=== PATIENT | male | born 1945 | race Caucasian/White ===

== ENCOUNTER → 2018-07-23 10:12 | Outpatient (CLI) | payer MEDICARE, MEDICAID, SELFPAY ==
--- NOTE | 2018-07-23 10:17 | US_ITS ---
US scrotum Ordering Physician: Tevin Howell MD Patient Age: 73 years: Male HISTORY: ITS.REASON: TESTICULAR PAIN . Scrotal swelling Low back pain radiating to right testicle several days TECHNIQUE: Ultrasound scrotum/testicles bilateral COMPARISON :CT abdomen pelvis 07/20/2018 however that study did not include the scrotum or airspace discussed below FINDINGS The testicles themselves appear normal in size with normal color Doppler flow. No torsion. No no suspicious solid mass involving the testicle itself. However there is a cyst of the testicle itself on the left. Discussed below Most impressive in striking are the large bilateral cystic areas at both right and left hemiscrotum which are most likely large epididymal cyst// spermatocele type cyst . These were difficult to demonstrate effectively to provided overview on ultrasound in their large size and multiplicity RIGHT HEMISCROTUM . The testicle itself measures: 3.7 cm x 3.6 cm x 2.2 cm.. At the right hemiscrotum there is a septated series of large cystic areas most evident superior to the right testicle-these spanning over 4.3 cm length x 1.75 cm. The largest cyst here measuring 2.5 cm cm length X up to 4.5 cm transverse. Cm cm transverse. Immediate cyst 2 cm length times X I believe 3 cm cm transverse cyst... There are other smaller in tiny cystic areas adjacent &between these larger areas... Also Suggestion of trace hydrocele most evident just superior to the right testicle, with only scant if any fluid inferiorly or or surrounding the testicle.. LEFT TESTICLE The testicle itself measures 3.6 cm length of 2.1 cm x 3.7 cm. Testicular cyst: 8 mm cyst of the left testicle itself-seen at the margin of the left testicle inferiorly. This should be followed. As there is subtle variation of architecture of the testicle just adjacent to this benign-appearing cyst noted... However No increase color Doppler flow to this region is seen. . Most striking of the large epididymal cysts above the testicle and at region of the head of left epididymis. These extend along the slightly enlarged irregular epididymis. Largest left left hemiscrotum cyst mass with partial septation spans 5.1 cm length X 3.9 cm transverse x 2.8 cm AP. This is extending somewhat along the epididymis. Again most likely these do reflect large epididymal cyst/spermatocele. I could not totally exclude a prior infection accounting for the additional septations in this slight irregular appearance of the epididymis. If tender currently cannot exclude a recurrent epididymitis.. Correlation required. There is also a small hydrocele oblique superior to the left testicle but it does not surround the left testicle, then only seen superiorly. Cannot exclude a prior infection accounting for some of the additional septations as well as the slight irregular appearance of the epididymis most evident on left. Some & If tender currently or fever cannot exclude a recurrent epididymitis.. Correlation required. There is also a small hydrocele at overlying the superior the left testicle but it does not surround the left testicle,, only seen superiorly. (Note The recent CT study extends does not include the scrotum. But Also note that the 07/20/2018 CT shows no evidence of inguinal hernia which which were considered with initial scanning. However with Further scanning these reveals that these are cystic areas restricted to the scrotum, and most compatible with epididymal cyst and/ spermatoceles.) IMPRESSION: ...... 1. Very Large Epididymal Cyst/Spermatoceles Bilaterally ... Very large cystic areas seen superior hemiscrotum bilaterally, representing mainly above both right & left testicle- compatible with very large prominent epididymal cysts/spermatoceles bilaterally.. As de
== END ==
PROVIDERS: PCP Internal Medicine Adolescent Medicine; Visit Provider Internal Medicine Adolescent Medicine
DX: N50.811 Right testicular pain (principal)
CPT/HCPCS: 76870

== ENCOUNTER → 2018-08-14 13:29 | Outpatient (CLI) | payer MEDICARE, MEDICAID, SELFPAY ==
--- NOTE | 2018-08-14 13:34 | CT_ITS ---
CT lung screening EXAM: CT LUNG LOW DOSE WO CONTRAST HISTORY: ITS.REASON: HX TOBACCO USE ORDERING PHYSICIAN: Tevin Howell MD PATIENT AGE: 73 years COMPARISON: None TECHNIQUE: The exam was performed on a GE Light Speed [address] scanner using 23.16 mGy CTDI. A low dose helical CT CHEST was performed on a multi-detector scanner. All CT scans at the facility use one or more dose reduction, viz: automated exposure control, ma/kV adjustment per patient size (including targeted exams where dose is matched to indication, i.e. head), or iterative reconstruction technique. The LDCT was performed in a facility that meets the criteria for the screening program. Data regarding this exam was submitted to ACR which is an approved registry. The order for this exam indicates that it came as a result of a lung cancer screening counseling shard decision-making visit that included all the elements required of such a visit including smoking cessation. The radiologist interpreting this exam meets the CMS criteria for the LDCT lung cancer screening program. The exam is reported using the Lung-RADS classification scale and reported to the ACR registry. NOTE: This study was performed for the specific purposes of lung cancer screening and is not an alternative to diagnostic chest CT. RADIATION DOSE: CTDI vol(CT dose Index-volume) = 23.16mG DLP (Dose Length Product) = 931.13 mGcm FINDINGS: No suspicious pulmonary nodules evident. Mild atelectatic or fibrotic changes are present in the left lung base. There is mild cardiomegaly. Coronary artery calcification. IMPRESSION: 1. Lung RADS Category: 1, negative 2. Other findings: Cardiomegaly with coronary artery calcification and mild left basilar atelectasis or fibrosis RECOMMENDATIONS: No follow-up required if the patient has quit smoking for greater than 15 years
== END ==
PROVIDERS: PCP Internal Medicine Adolescent Medicine; Visit Provider Internal Medicine Adolescent Medicine
DX: Z12.2 Encounter for screening for malignant neoplasm of respiratory organs (principal); Z87.891 Personal history of nicotine dependence

== ENCOUNTER 2020-10-15 11:42 | Observation (INO) | payer MEDICARE, MEDICAID, SELFPAY ==
[2020-10-15] VITALS (9 sets, daily range): BP systolic 110–166; BP diastolic 68–85; PULSE 67–117; RESP 16–20; TEMP 36.4–36.8; O2SAT 97–98; BMI 32.5; BMI 31.6
--- NOTE | 2020-10-15 11:52 | CT_ITS ---
PROCEDURE: CT ABDOMEN PELVIS WO CON CLINICAL INDICATION: back pain Generalized abdominal pain, back pain, testicular pain COMPARISON: CT ABDPELWO CT abdomen pelvis wo con from 07/20/2018 TECHNIQUE: Axial images obtained with sagittal and coronal reformats. All CT scans at the facility use one or more dose reduction, viz: automated exposure control, ma/kV adjustment per patient size (including targeted exams where dose is matched to indication, i.e. head), or iterative reconstruction technique. FINDINGS: LOWER THORAX: No acute finding ABDOMEN & PELVIS: The liver, gallbladder, spleen, adrenal glands, pancreas, have an unremarkable appearance. There is nonobstructing punctate calculi in both kidneys measuring 3 mm in the lower pole on both sides. There is mild stranding of the perinephric renal. No ureteral calculi. There is minimal dilatation of the infrarenal abdominal aorta at 2.3 cm. No evidence of acute retroperitoneal hemorrhage. Unremarkable appendix. There is colonic diverticulosis but no evidence of diverticulitis. The urinary bladder is decompressed. There is a small hiatal hernia. No intestinal obstruction or free air. There is old compression fracture of L2 with degenerative changes of the lumbar spine. There are small bilateral inguinal hernias containing fat and there are bilateral hydroceles noted left larger than right. IMPRESSION: 1. Nonobstructing bilateral renal calculi. 2. Colonic diverticulosis. No evidence of diverticulitis. 3. Bilateral inguinal hernias containing fat with bilateral hydroceles Dictated by: Michael Dill MD 10/16/2020 07:34 Michael Dill MD in [place] 10/16/2020 07:34
--- NOTE | 2020-10-15 11:53 | US_ITS ---
PROCEDURE: US TESTICULAR CLINICAL INDICATION: swelling Pain and swelling COMPARISON: US SCROTUM US scrotum from 07/23/[address] ABDOMEN PELVIS WO CON from 10/15/2020 FINDINGS: The right testicle is 4 x 2 x 3 cm. No mass of the testicle. Blood flow is present. Left testicle is 3.5 x 2.4 x 2.7 cm. Blood flow is present with no obvious solid testicular mass. There is a cystic area along the posterior aspect of the left testicle at 9 x 4 mm. Along the upper pole of the right testicle there are 2 cystic areas measuring 2.5 and 2.3 cm. Along the upper pole of the left testicle in the epididymal region there is a loculated cystic area measuring at least 5.8 by 2.9 cm. These may represent large epididymal cysts/spermatoceles. IMPRESSION: There are bilateral loculated cystic areas superior to the testicle on both sides as described above and may represent spermatocele/epididymal cysts. There is a small cyst involving the left testicle posteriorly. No solid testicular mass is apparent in there is bilateral testicular blood flow Dictated by: Michael Dill MD 10/16/2020 10:17 Michael Dill MD in [place] 10/16/2020 10:17
--- NOTE | 2020-10-15 11:54 | HMH.EDGENADL ---
ED Disposition Clinical Impression: Acute exacerbation of chronic low back pain, Spermatocele, Thrombocytopenia Leukopenia Qualifiers: Leukopenia type: unspecified Qualified Code(s): D72.819 - Decreased white blood cell count, unspecified Disposition: Admitted As Inpatient Condition on Discharge: Good - Critical Care Critical Care Time: No Attestation: On , the high probability of a clinically significant, sudden or life threatening deterioration of the following system(s) required my full and direct attention, intervention and personal management. The time I documented below is in addition to time spent performing reported procedures but includes the following listed in this critical care notation. Medical Decision Making - Medical Records Medical records reviewed: Yes: I reviewed the patient's medical records. - Moose Inquiry Pt receiving controlled substance: No Vital Signs: 10/15/20 11:43 10/15/20 13:13 Temperature 98 F Temperature Source Oral Pulse Rate [Radial] 117 H 75 Respiratory Rate 18 Blood Pressure [Right Arm] 110/68 141/83 H Blood Pressure Mean [Right Arm] 82 102 Blood Pressure Source [Right Arm] Automatic Cuff Blood Pressure Position [Right Arm] Sitting Sitting 02 Sat by Pulse Oximetry 98 98 Oxygen Delivery Method Room Air Room Air - Lab Data Lab Results 10/15/20 12:20: WBC 1.6 L*, RBC 3.47 L, Hgb 13.2 L, Hct 40.3 L, MCV 115.9 H, MCH 37.9 H, MCHC 32.7, RDW 13.9, Plt Count 50 L, MPV 10.7 H, Neut % (Auto) 34.1 L, Lymph % (Auto) 51.0 H, [place] % (Auto) 10.2 H, Eos % (Auto) 4.6, Baso % (Auto) 0.1, Neut # (Auto) 0.5 L*, Lymph # (Auto) 0.8, [place] # (Auto) 0.2, Eos # (Auto) 0.1, Baso # (Auto) 0.0, Total Counted 100, Neutrophils % (Manual) 39 L, Band Neutrophils % 1.0, Lymphocytes % (Manual) 47, Monocytes % (Manual) 11 H, Eosinophils % (Manual) 2, Nucleated RBCs 1, Platelet Estimate Marked decrease, Anisocytosis 2+, Macrocytosis 2+ 10/15/20 12:20: Sodium 137, Potassium 3.8, Chloride 104, Carbon Dioxide 27, Anion Gap 9.8, BUN 22 H, Creatinine 1.10, Estimated Creat Clear 89, Estimated GFR 65, Est GFR ( Amer) 79, Glucose 112 H, Calcium 9.5, Total Bilirubin 0.7, AST 36, ALT 24, Alkaline Phosphatase 90, Total Protein 7.5, Albumin 4.1, Globulin 3.4 H, Albumin/Globulin Ratio 1.2 10/15/20 13:25: Urine Color Yellow, Urine Appearance Clear, Urine pH 5.5, Ur Specific [place] >= 1.030, Urine Protein 1+, Urine Glucose (UA) Negative, Urine Ketones Negative, Urine Blood Negative, Urine Nitrate Positive, Urine Bilirubin 1+ A, Urine Urobilinogen 2.0, Ur Leukocyte Esterase Negative, Urine RBC None, Urine WBC None, Ur Squamous Epith Cells 3-5, Amorphous Sediment 2+, Urine Bacteria None Result diagrams: 10/15/20 12:20 10/15/20 12:20 Orders (Tests/Meds): ED MEDICATIONS Discontinued Medications Generic Name Dose Route Start Last Admin Trade Name Sherine PRN Reason Stop Dose Admin Acetaminophen 1,000 mg 10/15/20 11:54 10/15/20 12:19 Acetaminophen 500mg Tab PO 10/15/20 11:55 1,000 mg ONCE ONE Administration ORDERS Category Date Time Status CT abdomen pelvis wo con Stat Cat Scan 10/15/20 11:52 Taken Covid-19 IgG/IgM ([facility]) Stat Lab 10/15/20 14:06 Ordered US scrotum [US Testicular] Stat Ultrasound 10/15/20 11:53 Taken Medical Decision Narrative: 75-year-old male presenting with neck pain and scrotal swelling. Nontoxic, afebrile, hemodynamically stable, nonfocal, neuro intact, atraumatic. CT of the L-spine was negative for acute disease. Ultrasound of the scrotum demonstrated bilateral spermatoceles. Urinalysis is negative for infection. Of note, CBC was remarkable for a leukopenia and thrombocytopenia which is new therefore I have spoken to the who agreed to admit the patient for further work-up and management. Patient remained stable in the ED. General Adult HPI - General Chief complaint: PAIN Stated complaint: prostate and back pain Time Seen by Provider: 10/15/20 11:55 M
[2020-10-15 12:31] LABS: Basophils % 0.1 % (0.1-2.0); Eosinophils # 0.1 K/mm3 (0.0-0.4); Eosinophils % 4.6 % (0.1-12.0); Hematocrit 40.3 % (42.0-52.0); Hemoglobin 13.2 g/dL (14.1-18.0); Lymphocytes # 0.8 K/mm3 (0.7-4.5); Mean Corpuscular HGB Conc 32.7 g/dL (31.8-35.4); Mean Corpuscular Hemoglobin 37.9 pg (27.0-31.2); Mean Corpuscular Volume 115.9 fl (80-94); Mean Platelet Volume 10.7 fl (7.4-10.4); Monocytes # 0.2 K/mm3 (0.1-1.0); Monocytes % 10.2 % (1.7-9.3); Neutrophils # 0.5 K/mm3 (1.8-7.8); Neutrophils % 34.1 % (37.0-80.0); Red Blood Count 3.47 M/mm3 (4.60-6.20); Red Cell Distribution Width 13.9 % (11.5-17.5); White Blood Count 1.6 K/mm3 (4.8-10.8)
[2020-10-15 12:33] LABS: Platelet Count 50 K/mm3 (142-424)
[2020-10-15 12:36] LABS: MANUAL DIFFERENTIAL MANUAL DIFFERENTIAL (MANUAL DIFF)
[2020-10-15 12:38] LABS: Alanine Aminotransferase 24 U/L (12-78); Albumin Level 4.1 g/dl (3.5-5.0); Albumin/Globulin Ratio 1.2 (1.1-1.8); Alkaline Phosphatase 90 U/L (38-126); Anion Gap 9.8 mEq/L (5-15); Aspartate Amino Transferase 36 U/L (17-59); Bilirubin,Total 0.7 mg/dl (0.2-1.3); Blood Urea Nitrogen 22 mg/dl (9-20); Calcium 9.5 mg/dl (8.4-10.2); Carbon Dioxide 27 mmol/L (22.0-30.0); Chloride 104 mmol/L (98-107); Creatinine Clearance Estimated 89 mL/min (50-200); Estimated Glomerular Filt Rate 65 ml/min (>60); GFR (African American) 79 ML/MIN (>60); Globulin 3.4 g/dL (1.3-3.2); Glucose 112 mg/dl (74-100); Potassium 3.8 mmoL/L (3.5-5.1); Sodium 137 mmol/L (136-145); Total Protein,Serum 7.5 g/dl (6.3-8.2)
[2020-10-15 12:55] LABS: Eosinophils % 2 % (0-3); Lymphocytes % 47 % (10-50); Monocytes % 11 % (2-9); Neutrophils % 39 % (42-76); Nucleated Red Blood Cells 1; Total Cells Counted 100
[2020-10-15 12:56] LABS: Anisocytosis 2+; Macrocytosis 2+; Platelet Estimate Marked Decrease
--- NOTE | 2020-10-15 13:09 | PC.NURSE ---
pt returned from US
[2020-10-15 13:28] LABS: Appearance,Urine CLEAR (Clear); Blood, Urine Negative (Negative); Color,Urine YELLOW (Yellow); Glucose,Urine (UA) Negative (Negative); Ketones,Urine Negative (Negative); Leukocyte Esterase,Urine Negative (Negative); Microscopic, Urine URINE MICROSCOPIC (MICROSCOPIC); Nitrate,Urine POSITIVE (Negative); PH,Urine 5.5 (5.0-8.5); Protein,Urine 1+ (Negative); Specific Gravity, Urine >= 1.030 (1.005-1.030)
[2020-10-15 13:32] LABS: Bilirubin,Urine 1+ (Negative)
[2020-10-15 13:38] LABS: Amorphous Sediment,Urine 2+ /lpf
--- NOTE | 2020-10-15 14:41 | P.CONPHA_ITS ---
[facility] Pharmacy VTE Monitoring - Patient Demographics Admission date: 10/15/20 Report Date: 10/15/20 Time: 14:41 Allergies/Adverse Reactions: Patient Allergies No Known Allergies Allergy (Verified 05/23/18 10:45) Height: 1.83 m Weight: 108.862 kg Patient Problems: Current Active Problems Acute exacerbation of chronic low back pain (Acute) Spermatocele (Acute) Thrombocytopenia (Acute) Leukopenia (Acute) - VTE Risk Labs: VTE Related Lab Results Hgb 13.2 g/dL (14.1-18.0) L 10/15/20 12:20 Hct 40.3 % (42.0-52.0) L 10/15/20 12:20 Plt Count 50 K/mm3 (142-424) L 10/15/20 12:20 BUN 22 mg/dl (9-20) H 10/15/20 12:20 Creatinine 1.10 mg/dl (0.66-1.25) 10/15/20 12:20 Estimated Creat Clear 89 mL/min (50-200) 10/15/20 12:20 - Prophylaxis VTE Prophylaxis Ordered?: Yes Types of VTE Prophylaxis: TEDS Knee High Location of Applied Device: Bilateral Lower Extremeties
--- NOTE | 2020-10-15 14:42 | PC.NURSE ---
pt and family updated on plan of care
[2020-10-15 15:04] LABS: Coronavirus 19 IgG Antibody Negative (Negative); Coronavirus 19 IgM Antibody Negative (Negative)
--- NOTE | 2020-10-15 15:09 | PC.NURSE ---
called floor pt ready for admission
--- NOTE | 2020-10-15 15:48 | PC.NURSE ---
notified floor pt ready for admission
--- NOTE | 2020-10-15 16:04 | PC.NURSE ---
REPORT CALLED TO FLOOR
[2020-10-16 03:52] VITALS: BP 127/64; PULSE 79; RESP 18; TEMP 36.8; O2SAT 95
--- NOTE | 2020-10-16 04:51 | PC.NURSE ---
No acute changes noted. Pt has rested well this shift. Upon assessment stated that he had some back discomfort and headache. He also described swelling to scrotum.Some slight swelling noted during assessment. MD was consulted for orders. New orders placed to order home medications. Orders carried out. Home medications in drawer. VSS. Medications administered per mar. Will continue to monitor.
[2020-10-16 04:55] VITALS: BMI 31.3
[2020-10-16 06:28] LABS: Basophils % 0.4 % (0.1-2.0); Eosinophils # 0.1 K/mm3 (0.0-0.4); Eosinophils % 4.1 % (0.1-12.0); Hematocrit 35.3 % (42.0-52.0); Hemoglobin 11.9 g/dL (14.1-18.0); Lymphocytes % 58.3 % (10-50); Mean Corpuscular HGB Conc 33.8 g/dL (31.8-35.4); Mean Corpuscular Hemoglobin 38.5 pg (27.0-31.2); Mean Corpuscular Volume 113.6 fl (80-94); Mean Platelet Volume 10.2 fl (7.4-10.4); Monocytes # 0.2 K/mm3 (0.1-1.0); Monocytes % 11.8 % (1.7-9.3); Neutrophils # 0.4 K/mm3 (1.8-7.8); Neutrophils % 25.4 % (37.0-80.0); Red Blood Count 3.11 M/mm3 (4.60-6.20); Red Cell Distribution Width 13.8 % (11.5-17.5); White Blood Count 1.7 K/mm3 (4.8-10.8)
[2020-10-16 06:37] LABS: Anion Gap 9.2 mEq/L (5-15); Blood Urea Nitrogen 21 mg/dl (9-20); Calcium 9.3 mg/dl (8.4-10.2); Carbon Dioxide 29 mmol/L (22.0-30.0); Chloride 105 mmol/L (98-107); Creatinine Clearance Estimated 95 mL/min (50-200); Estimated Glomerular Filt Rate 73 ml/min (>60); GFR (African American) 88 ML/MIN (>60); Glucose 99 mg/dl (74-100); Potassium 4.2 mmoL/L (3.5-5.1); Sodium 139 mmol/L (136-145)
[2020-10-16 07:34] VITALS: BP 129/69; PULSE 95; RESP 16; TEMP 36.7; O2SAT 100
--- NOTE | 2020-10-16 07:51 | SW/DCPLANNER ---
PATIENT ADMITTED TO [facility] IN AN OBSERVATION STATUS, PATIENT COMPLAINING OF SWELLING OF TESTICLES AND RECENT DIAGNOSIS OF PROSTATITIS.. PATIENT RESIDES IN [facility] AND THE PLAN AT THIS TIME IS TO RETURN HOME PRIOR TO OBS ADMISSION... CM WILL FOLLOW THIS PATIENT AND IF THERE IS A NEED FOR ANY HOME CARE, IT WILL BE SET UP AT TIME OF ADMISSION...PATIENTS STAY SHOULD BE SHORT...
[2020-10-16 08:05] LABS: Platelet Count 47 K/mm3 (142-424)
[2020-10-16 08:06] LABS: MANUAL DIFFERENTIAL MANUAL DIFFERENTIAL (MANUAL DIFF)
--- NOTE | 2020-10-16 08:26 | HMH.HPDC ---
General - General Admission date:: 10/15/20 Discharge date: 10/16/20 *Admission Date: 10/15/20 *Chief complaint: Increased back pain, left testicle swelling *History of present illness: 75-year-old male presenting with neck pain and scrotal swelling. Nontoxic, afebrile, hemodynamically stable, nonfocal, neuro intact, atraumatic. CT of the L-spine was negative for acute disease. Ultrasound of the scrotum demonstrated bilateral spermatoceles. Urinalysis is negative for infection. Of note, CBC was remarkable for a leukopenia and thrombocytopenia which is new therefore I have spoken to the who agreed to admit the patient for further work-up and management. Patient remained stable in the ED. Above note per emergency department physician-patient presented with some back pain as well as increasing left scrotal swelling-has a history of recurrent orchitis/spermatocele exacerbations, usually treated with p.o. antibiotics. 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 No splenomegaly, hepatomegaly or lymphadenopathy was noted. Work-up was noted to have white count 1.6 and platelet count 50 which were new compared to labs in 2018 in the hospital system and patient was admitted overnight for neutropenic work-up. Patient specifically denies fevers, chills, rash, fatigue, belly pain, nausea, or other type B symptoms. [facility] History I have reviewed the patient's past medical history: Yes Medical History: Reports:: Hyperlipidemia, Hypertension Denies:: Cancer, Diabetes Mellitus Type 1, Diabetes Mellitus Type 2, Internal Pacemaker, MRSA *Have you ever received a pneumonia vaccine?: No *Have you received a flu vaccine this season?: No Other Medical History: Reports: Hoarseness, Other (short of breath,emphysemia) Other Surgeries: No: Pacemaker Amputation: No Fractures: No - *Social History Last grade of school completed: High school graduate Smoking Status: Former smoker Tobacco Type: cigarettes # Packs/Day (cigarettes): 3 #Yrs smoked (if former smoker): 20 Alcohol Intake: current Alcohol Intake Frequency:: 3 or more drinks per day Substance Use Type: denies use *Occupational Status:: retired, disabled Housing: house Household Members: spouse *Travel in the last 8 weeks: None Family Hx:: Asthma, Cancer, Heart Attack, Stroke Review of Systems - Review of Systems Review of systems:: pertinent systems reviewed and negative unless documented below Exam Vital signs and Labs for Last 24 Hours: Temp Pulse Resp BP Pulse Ox 98.1 F 95 H 16 129/69 100 10/16/20 07:34 10/16/20 07:34 10/16/20 07:34 10/16/20 07:34 10/16/20 07:34 Laboratory Results - last 24 hr 10/15/20 12:20: WBC 1.6 L*, RBC 3.47 L, Hgb 13.2 L, Hct 40.3 L, MCV 115.9 H, MCH 37.9 H, MCHC 32.7, RDW 13.9, Plt Count 50 L, MPV 10.7 H, Neut % (Auto) 34.1 L, Lymph % (Auto) 51.0 H, [place] % (Auto) 10.2 H, Eos % (Auto) 4.6, Baso % (Auto) 0.1, Neut # (Auto) 0.5 L*, Lymph # (Auto) 0.8, [place] # (Auto) 0.2, Eos # (Auto) 0.1, Baso # (Auto) 0.0, Total Counted 100, Neutrophils % (Manual) 39 L, Band Neutrophils % 1.0, Lymphocytes % (Manual) 47, Monocytes % (Manual) 11 H, Eosinophils % (Manual) 2, Nucleated RBCs 1, Platelet Estimate Marked decrease, Anisocytosis 2+, Macrocytosis 2+ 10/15/20 12:20: Sodium 137, Potassium 3.8, Chloride 104, Carbon Dioxide 27, Anion Gap 9.8, BUN 22 H, Creatinine 1.10, Estimated Creat Clear 89, Estimated GFR 65, Est GFR ( Amer) 79, Glucose 112 H, Calcium 9.5, Total Bilirubin 0.7, AST 36, ALT 24, Alkaline Phosphatase 90, Total Protein 7.5, Albumin 4.1, Globulin 3.4 H, Albumin/Globulin Ratio 1.2 10/15/20 12:20: SARS-CoV-2 IgG Ab (Rapid) Negative, SARS-CoV-2 IgM Ab (Rapid) Negative 10/15/20 13:25: Urine Color Yellow, Urine Appearance Clear, Urine pH 5.5, Ur Specific [place] >= 1.030, Urine Protein 1+, Urine Glucose (UA) Negative, Urine Ketones Negative, Urine Blood Negative, Urine Nitrate Positive, Urin
[2020-10-16 09:23] LABS: Lymphocytes % 60 % (10-50); Monocytes % 4 % (2-9); Neutrophils % 16 % (42-76); Total Cells Counted 25
[2020-10-16 09:24] LABS: Macrocytosis 1+
[2020-10-16 09:25] LABS: Platelet Estimate Marked Decrease
== END 2020-10-16 10:25 | disposition home or self-care (01) ==
LOC: ER 12:30 → 2ND 14:21
PROVIDERS: Admitting Provider Family Medicine; Emergency Provider Physician Assistant; PCP Internal Medicine Adolescent Medicine; Visit Provider Internal Medicine Adolescent Medicine
DX: M54.5 Low back pain (principal); G89.29 Other chronic pain; N43.40 Spermatocele of epididymis, unspecified; D69.6 Thrombocytopenia, unspecified; I10 Essential (primary) hypertension; E78.5 Hyperlipidemia, unspecified; J44.9 Chronic obstructive pulmonary disease, unspecified; Z79.51 Long term (current) use of inhaled steroids; Z79.899 Other long term (current) drug therapy
CPT/HCPCS: 36415; 74176; 76870; 80048; 80053; 81001; 85007; 85025; 86328; 99284; G0378

== ENCOUNTER → 2020-10-19 14:20 | Outpatient (CLI) | payer MEDICARE, MEDICAID, SELFPAY ==
[2020-10-19 15:10] LABS: Basophils % 0.5 % (0.1-2.0); Eosinophils # 0.1 K/mm3 (0.0-0.4); Eosinophils % 2.8 % (0.1-12.0); Hematocrit 40.4 % (42.0-52.0); Hemoglobin 13.5 g/dL (14.1-18.0); Lymphocytes # 1.1 K/mm3 (0.7-4.5); Lymphocytes % 60.8 % (10-50); Mean Corpuscular HGB Conc 33.5 g/dL (31.8-35.4); Mean Corpuscular Hemoglobin 38.5 pg (27.0-31.2); Mean Platelet Volume 10.3 fl (7.4-10.4); Monocytes # 0.2 K/mm3 (0.1-1.0); Monocytes % 8.7 % (1.7-9.3); Neutrophils # 0.5 K/mm3 (1.8-7.8); Neutrophils % 27.2 % (37.0-80.0); Platelet Count 68 K/mm3 (142-424); Red Blood Count 3.51 M/mm3 (4.60-6.20); Red Cell Distribution Width 13.7 % (11.5-17.5); White Blood Count 1.8 K/mm3 (4.8-10.8)
[2020-10-19 15:12] LABS: MANUAL DIFFERENTIAL MANUAL DIFFERENTIAL (MANUAL DIFF)
[2020-10-19 15:29] LABS: Alanine Aminotransferase 25 U/L (12-78); Albumin Level 4.5 g/dl (3.5-5.0); Albumin/Globulin Ratio 1.4 (1.1-1.8); Alkaline Phosphatase 89 U/L (38-126); Anion Gap 12.4 mEq/L (5-15); Aspartate Amino Transferase 40 U/L (17-59); Bilirubin,Total 0.9 mg/dl (0.2-1.3); Blood Urea Nitrogen 23 mg/dl (9-20); Carbon Dioxide 29 mmol/L (22.0-30.0); Chloride 103 mmol/L (98-107); Estimated Glomerular Filt Rate 73 ml/min (>60); GFR (African American) 88 ML/MIN (>60); Globulin 3.3 g/dL (1.3-3.2); Glucose 126 mg/dl (74-100); Potassium 4.4 mmoL/L (3.5-5.1); Sodium 140 mmol/L (136-145); Total Protein,Serum 7.8 g/dl (6.3-8.2)
[2020-10-19 16:16] LABS: Lymphocytes % 56 % (10-50); Monocytes % 6 % (2-9); Neutrophils % 37 % (42-76); Total Cells Counted 100
[2020-10-19 16:17] LABS: Anisocytosis 2+; Macrocytosis 2+; Platelet Estimate Marked Decrease
[2020-10-19 16:36] LABS: Vitamin B12 844 pg/mL (239-931)
[2020-10-19 16:37] LABS: Folate > 20.00 ng/mL
[2020-10-20 15:08] LABS: Lactate Dehydrogenase 219 U/L (313-618); Uric Acid 5.2 mg/dl (3.5-8.5)
[2020-10-22 14:45] LABS: Peripheral Smear Review Scanned Result
== END ==
PROVIDERS: Visit Provider Internal Medicine Medical Oncology
DX: D69.6 Thrombocytopenia, unspecified (principal)
CPT/HCPCS: 36415; 80053; 82607; 82746; 83615; 84550; 85007; 85025

== ENCOUNTER 2020-11-06 09:07 | Outpatient (CLI) | payer MEDICARE, MEDICAID, SELFPAY ==
[2020-11-06 09:08] VITALS: BMI 31.1
[2020-11-06 09:29] LABS: Basophils % 0.7 % (0.1-2.0); Eosinophils % 1.2 % (0.1-12.0); Hematocrit 37.2 % (42.0-52.0); Hemoglobin 12.2 g/dL (14.1-18.0); Lymphocytes # 1.5 K/mm3 (0.7-4.5); Lymphocytes % 55.1 % (10-50); Mean Corpuscular HGB Conc 32.8 g/dL (31.8-35.4); Mean Corpuscular Hemoglobin 37.8 pg (27.0-31.2); Mean Corpuscular Volume 115.2 fl (80-94); Mean Platelet Volume 9.5 fl (7.4-10.4); Monocytes # 0.2 K/mm3 (0.1-1.0); Monocytes % 7.5 % (1.7-9.3); Neutrophils % 35.6 % (37.0-80.0); Platelet Count 72 K/mm3 (142-424); Red Blood Count 3.23 M/mm3 (4.60-6.20); Red Cell Distribution Width 13.8 % (11.5-17.5); White Blood Count 2.7 K/mm3 (4.8-10.8)
[2020-11-06 09:32] LABS: MANUAL DIFFERENTIAL MANUAL DIFFERENTIAL (MANUAL DIFF)
[2020-11-06 09:40] LABS: Alanine Aminotransferase 17 U/L (12-78); Albumin Level 3.9 g/dl (3.5-5.0); Albumin/Globulin Ratio 1.3 (1.1-1.8); Alkaline Phosphatase 64 U/L (38-126); Anion Gap 7.3 mEq/L (5-15); Aspartate Amino Transferase 27 U/L (17-59); Bilirubin,Total 0.7 mg/dl (0.2-1.3); Blood Urea Nitrogen 17 mg/dl (9-20); Calcium 9.6 mg/dl (8.4-10.2); Carbon Dioxide 30 mmol/L (22.0-30.0); Chloride 104 mmol/L (98-107); Creatinine Clearance Estimated 94 mL/min (50-200); Estimated Glomerular Filt Rate 73 ml/min (>60); GFR (African American) 88 ML/MIN (>60); Glucose 130 mg/dl (74-100); Potassium 3.3 mmoL/L (3.5-5.1); Sodium 138 mmol/L (136-145); Total Protein,Serum 6.9 g/dl (6.3-8.2)
[2020-11-06 09:44] VITALS: BP 117/67; PULSE 82; RESP 18; TEMP 36.6; O2SAT 99
[2020-11-06 10:13] VITALS: BP 137/68; PULSE 84; RESP 18; O2SAT 98
[2020-11-06 10:21] LABS: Lymphocytes % 48 % (10-50); Macrocytosis 1+; Monocytes % 2 % (2-9); Neutrophils % 50 % (42-76); Platelet Estimate Normal; Total Cells Counted 100
[2020-11-06 10:43] VITALS: BP 140/74; PULSE 81; RESP 18; O2SAT 98
[2020-11-06 11:13] VITALS: BP 132/65; PULSE 61; RESP 18; O2SAT 98
[2020-11-06 11:35] VITALS: BP 135/74; PULSE 60; RESP 18; O2SAT 98
== END 2020-11-06 11:35 | disposition home or self-care (01) ==
LOC: INF 09:07
PROVIDERS: Visit Provider Internal Medicine Medical Oncology
DX: D46.9 Myelodysplastic syndrome, unspecified
CPT/HCPCS: 80053; 85007; 85025; 96413; J0894

== ENCOUNTER 2020-11-07 09:04 | Outpatient (CLI) | payer MEDICARE, MEDICAID, SELFPAY ==
[2020-11-07 09:40] VITALS: BP 126/59; PULSE 76; RESP 18; TEMP 36.3; O2SAT 97
[2020-11-07 09:55] VITALS: BP 136/68; PULSE 76; RESP 18
[2020-11-07 10:10] VITALS: BP 137/62; PULSE 66; RESP 18
[2020-11-07 10:25] VITALS: BP 130/63; PULSE 66; RESP 18
[2020-11-07 10:55] VITALS: BP 126/65; PULSE 66; RESP 18
== END 2020-11-07 10:55 | disposition home or self-care (01) ==
LOC: INF 09:04
PROVIDERS: Visit Provider Internal Medicine Medical Oncology
DX: Z51.11 Encounter for antineoplastic chemotherapy (principal); D46.9 Myelodysplastic syndrome, unspecified
CPT/HCPCS: 96413; J0894

== ENCOUNTER 2020-11-08 08:55 | Outpatient (CLI) | payer MEDICARE, MEDICAID, SELFPAY ==
[2020-11-08 09:40] VITALS: BP 147/69; PULSE 69; RESP 18; TEMP 36.4; O2SAT 97
[2020-11-08 10:00] VITALS: BP 136/65; PULSE 64; RESP 18
[2020-11-08 10:15] VITALS: BP 142/64; PULSE 64; RESP 18
[2020-11-08 10:30] VITALS: BP 144/69; PULSE 62; RESP 18
[2020-11-08 10:45] VITALS: BP 145/62; PULSE 63; RESP 18
[2020-11-08 11:10] VITALS: BP 148/64; PULSE 62; RESP 18
== END 2020-11-08 11:10 | disposition home or self-care (01) ==
LOC: INF 09:05
PROVIDERS: Visit Provider Internal Medicine Medical Oncology
DX: Z51.11 Encounter for antineoplastic chemotherapy (principal); D46.9 Myelodysplastic syndrome, unspecified
CPT/HCPCS: 96413; J0894

== ENCOUNTER 2020-11-09 08:47 | Outpatient (CLI) | payer MEDICARE, MEDICAID, SELFPAY ==
[2020-11-09 09:20] VITALS: BP 131/63; PULSE 70; RESP 18; O2SAT 96
[2020-11-09 09:35] VITALS: BP 142/68; PULSE 65; RESP 18
[2020-11-09 09:50] VITALS: BP 134/62; PULSE 66; RESP 18
[2020-11-09 10:05] VITALS: BP 137/63; PULSE 60; RESP 18
[2020-11-09 10:20] VITALS: BP 151/62; PULSE 62; RESP 18
[2020-11-09 10:45] VITALS: BP 147/74; PULSE 61; RESP 18
== END 2020-11-09 10:45 | disposition home or self-care (01) ==
LOC: INF 08:47
PROVIDERS: Visit Provider Internal Medicine Medical Oncology
DX: D46.9 Myelodysplastic syndrome, unspecified (principal)
CPT/HCPCS: 96413; J0894

== ENCOUNTER 2020-11-10 08:50 | Outpatient (CLI) | payer MEDICARE, MEDICAID, SELFPAY ==
[2020-11-10 09:38] VITALS: BP 134/62; PULSE 68; RESP 18; TEMP 36.6; O2SAT 97
[2020-11-10 09:53] VITALS: BP 117/62; PULSE 66; RESP 18
[2020-11-10 10:08] VITALS: BP 122/54; PULSE 62; RESP 18
[2020-11-10 10:23] VITALS: BP 126/63; PULSE 65; RESP 18
[2020-11-10 10:38] VITALS: BP 131/70; PULSE 67; RESP 18
== END 2020-11-10 11:00 | disposition home or self-care (01) ==
LOC: INF 08:52
PROVIDERS: Visit Provider Internal Medicine Medical Oncology
DX: D46.9 Myelodysplastic syndrome, unspecified (principal)
CPT/HCPCS: 96413; J0894

== ENCOUNTER 2020-11-16 12:40 | Outpatient (CLI) | payer MEDICARE, MEDICAID, SELFPAY ==
[2020-11-16 12:47] VITALS: BMI 31.8
[2020-11-16 13:09] LABS: Basophils % 0.4 % (0.1-2.0); Eosinophils % 0.5 % (0.1-12.0); Hematocrit 32.5 % (42.0-52.0); Hemoglobin 10.4 g/dL (14.1-18.0); Lymphocytes # 0.5 K/mm3 (0.7-4.5); Lymphocytes % 46.7 % (10-50); Mean Corpuscular HGB Conc 31.9 g/dL (31.8-35.4); Mean Corpuscular Hemoglobin 36.2 pg (27.0-31.2); Mean Corpuscular Volume 113.4 fl (80-94); Mean Platelet Volume 9.5 fl (7.4-10.4); Monocytes % 2.8 % (1.7-9.3); Neutrophils # 0.5 K/mm3 (1.8-7.8); Neutrophils % 49.5 % (37.0-80.0); Red Blood Count 2.87 M/mm3 (4.60-6.20); Red Cell Distribution Width 12.9 % (11.5-17.5)
[2020-11-16 13:12] LABS: Chloride 107 mmol/L (98-107)
[2020-11-16 13:13] LABS: Potassium 4.5 mmoL/L (3.5-5.1); Sodium 138 mmol/L (136-145)
[2020-11-16 13:14] LABS: Platelet Count 21 K/mm3 (142-424)
[2020-11-16 13:15] LABS: Alanine Aminotransferase 19 U/L (12-78); Anion Gap 6.5 mEq/L (5-15); Aspartate Amino Transferase 25 U/L (17-59); Blood Urea Nitrogen 28 mg/dl (9-20); Carbon Dioxide 29 mmol/L (22.0-30.0); Creatinine Clearance Estimated 96 mL/min (50-200); Estimated Glomerular Filt Rate 73 ml/min (>60); GFR (African American) 88 ML/MIN (>60); MANUAL DIFFERENTIAL MANUAL DIFFERENTIAL (MANUAL DIFF)
[2020-11-16 13:16] LABS: Albumin Level 3.9 g/dl (3.5-5.0); Albumin/Globulin Ratio 1.4 (1.1-1.8); Alkaline Phosphatase 70 U/L (38-126); Bilirubin,Total 1.1 mg/dl (0.2-1.3); Calcium 9.3 mg/dl (8.4-10.2); Globulin 2.8 g/dL (1.3-3.2); Glucose 115 mg/dl (74-100); Total Protein,Serum 6.7 g/dl (6.3-8.2)
--- NOTE | 2020-11-16 13:18 | PC.NURSE ---
1250-BLOOD DRAWN FROM LEFT AC USING BUTTERFLY NEEDLE TO CHECK CBC AND CMP PRIOR TO ONCOLOGY APPT.
[2020-11-16 14:00] LABS: Lymphocytes % 44 % (10-50); Neutrophils % 52 % (42-76); Total Cells Counted 50
[2020-11-16 14:01] LABS: Platelet Estimate Marked Decrease
[2020-11-16 14:02] LABS: Rouleaux 2+
--- NOTE | 2020-12-01 11:14 | DIET.NUTRFU ---
Late entry for dietary evaluation- Pt currently without any nutritional side effects and good appetite. Diet education/counseling provided for nutritional considerations and possible side effects. Pt encouraged to f/u with RD at next infusion or through telephone/email at any time.
== END 2020-11-16 12:55 | disposition home or self-care (01) ==
LOC: INF 12:45
PROVIDERS: Visit Provider Internal Medicine Medical Oncology
DX: D46.9 Myelodysplastic syndrome, unspecified (principal)
CPT/HCPCS: 80053; 85007; 85025

== ENCOUNTER 2020-12-04 08:49 | Outpatient (CLI) | payer MEDICARE, MEDICAID, SELFPAY ==
[2020-12-04 08:51] VITALS: BMI 31.1
[2020-12-04 09:16] LABS: Basophils # 0.1 K/mm3 (0-0.2); Basophils % 3.8 % (0.1-2.0); Eosinophils % 1.8 % (0.1-12.0); Hematocrit 33.9 % (42.0-52.0); Hemoglobin 10.8 g/dL (14.1-18.0); Lymphocytes % 70.7 % (10-50); Mean Corpuscular HGB Conc 31.8 g/dL (31.8-35.4); Mean Corpuscular Hemoglobin 35.5 pg (27.0-31.2); Mean Corpuscular Volume 111.8 fl (80-94); Mean Platelet Volume 8.6 fl (7.4-10.4); Monocytes % 1.4 % (1.7-9.3); Neutrophils # 0.3 K/mm3 (1.8-7.8); Neutrophils % 22.2 % (37.0-80.0); Platelet Count 315 K/mm3 (142-424); Red Blood Count 3.03 M/mm3 (4.60-6.20); Red Cell Distribution Width 14.1 % (11.5-17.5)
[2020-12-04 09:18] LABS: MANUAL DIFFERENTIAL MANUAL DIFFERENTIAL (MANUAL DIFF); White Blood Count 1.4 K/mm3 (4.8-10.8)
[2020-12-04 09:27] LABS: Chloride 106 mmol/L (98-107); Sodium 140 mmol/L (136-145)
[2020-12-04 09:29] LABS: Alanine Aminotransferase 17 U/L (12-78); Aspartate Amino Transferase 29 U/L (17-59); Blood Urea Nitrogen 19 mg/dl (9-20); Creatinine Clearance Estimated 86 mL/min (50-200); Estimated Glomerular Filt Rate 65 ml/min (>60); GFR (African American) 79 ML/MIN (>60)
[2020-12-04 09:30] LABS: Albumin/Globulin Ratio 1.2 (1.1-1.8); Alkaline Phosphatase 77 U/L (38-126); Bilirubin,Total 0.7 mg/dl (0.2-1.3); Calcium 9.9 mg/dl (8.4-10.2); Carbon Dioxide 27 mmol/L (22.0-30.0); Globulin 3.4 g/dL (1.3-3.2); Glucose 114 mg/dl (74-100); Total Protein,Serum 7.4 g/dl (6.3-8.2)
[2020-12-04 09:54] LABS: Hypochromasia 1+; Lymphocytes % 56 % (10-50); Macrocytosis 1+; Monocytes % 8 % (2-9); Neutrophils % 24 % (42-76); Platelet Estimate Normal; Total Cells Counted 25
[2020-12-04 10:35] VITALS: BP 132/63; PULSE 67; RESP 18; TEMP 36.7; O2SAT 96
[2020-12-04 11:05] VITALS: BP 137/69; PULSE 69; RESP 18; O2SAT 97
[2020-12-04 11:35] VITALS: BP 131/68; PULSE 65; RESP 18; O2SAT 96
[2020-12-04 11:55] VITALS: BP 140/62; PULSE 68; RESP 18; O2SAT 96
== END 2020-12-04 12:00 | disposition home or self-care (01) ==
LOC: INF 08:49
PROVIDERS: Visit Provider Internal Medicine Medical Oncology
DX: D46.9 Myelodysplastic syndrome, unspecified (principal)
CPT/HCPCS: 80053; 85007; 85025; 96413; J0894

== ENCOUNTER 2020-12-05 08:56 | Outpatient (CLI) | payer MEDICARE, MEDICAID, SELFPAY ==
[2020-12-05 09:27] VITALS: BP 135/66; PULSE 70; RESP 18; TEMP 36.4; O2SAT 97
[2020-12-05 09:45] VITALS: BP 140/74; PULSE 71; RESP 18
[2020-12-05 10:15] VITALS: BP 149/79; PULSE 75; RESP 18
[2020-12-05 10:35] VITALS: BP 140/75; PULSE 70; RESP 18
[2020-12-05 10:55] VITALS: BP 139/74; PULSE 70; RESP 18
== END 2020-12-05 10:55 | disposition home or self-care (01) ==
LOC: INF 08:56
PROVIDERS: Visit Provider Internal Medicine Medical Oncology
DX: D46.9 Myelodysplastic syndrome, unspecified (principal)
CPT/HCPCS: 96413; J0894

== ENCOUNTER 2020-12-06 08:35 | Outpatient (CLI) | payer MEDICARE, MEDICAID, SELFPAY ==
[2020-12-06 09:15] VITALS: BP 137/49; PULSE 69; RESP 18; TEMP 36.9; O2SAT 98
[2020-12-06 09:30] VITALS: BP 147/69; PULSE 71; RESP 18
[2020-12-06 09:45] VITALS: BP 138/74; PULSE 70; RESP 18
[2020-12-06 10:25] VITALS: RESP 18
[2020-12-06 10:40] VITALS: BP 154/74; PULSE 75; RESP 18
== END 2020-12-06 10:40 | disposition home or self-care (01) ==
LOC: INF 08:56
PROVIDERS: Visit Provider Internal Medicine Medical Oncology
DX: D46.9 Myelodysplastic syndrome, unspecified (principal)
CPT/HCPCS: 96413; J0894

== ENCOUNTER 2020-12-07 08:30 | Outpatient (CLI) | payer MEDICARE, MEDICAID, SELFPAY ==
[2020-12-07 09:13] VITALS: BP 147/68; PULSE 72; RESP 18; TEMP 36.8; O2SAT 99
[2020-12-07 09:28] VITALS: BP 129/63; PULSE 67; RESP 18
[2020-12-07 09:43] VITALS: BP 127/69; PULSE 63; RESP 18
[2020-12-07 09:58] VITALS: BP 119/70; PULSE 62; RESP 18
[2020-12-07 10:13] VITALS: BP 131/67; PULSE 62; RESP 18
== END 2020-12-07 10:35 | disposition home or self-care (01) ==
LOC: INF 08:31
PROVIDERS: Visit Provider Internal Medicine Medical Oncology
DX: D46.9 Myelodysplastic syndrome, unspecified (principal)
CPT/HCPCS: 96413; J0894

== ENCOUNTER 2020-12-08 08:50 | Outpatient (CLI) | payer MEDICARE, MEDICAID, SELFPAY ==
[2020-12-08 09:30] VITALS: BP 125/64; PULSE 62; RESP 18; TEMP 36.3; O2SAT 98
[2020-12-08 09:45] VITALS: BP 131/70; PULSE 64; RESP 18
[2020-12-08 10:00] VITALS: BP 140/61; PULSE 60; RESP 18; O2SAT 98
[2020-12-08 10:15] VITALS: BP 130/70; PULSE 60; RESP 18
[2020-12-08 10:30] VITALS: BP 136/68; PULSE 58; RESP 18
== END 2020-12-08 10:50 | disposition home or self-care (01) ==
LOC: INF 08:52
PROVIDERS: Visit Provider Internal Medicine Medical Oncology
DX: D46.9 Myelodysplastic syndrome, unspecified (principal)
CPT/HCPCS: 96413; J0894

== ENCOUNTER 2020-12-28 12:25 | Outpatient (CLI) | payer MEDICARE, MEDICAID, SELFPAY ==
[2020-12-28 12:31] VITALS: BMI 31.8
[2020-12-28 12:49] LABS: Basophils % 2.6 % (0.1-2.0); Eosinophils # 0.1 K/mm3 (0.0-0.4); Eosinophils % 4.8 % (0.1-12.0); Hematocrit 32.1 % (42.0-52.0); Hemoglobin 10.5 g/dL (14.1-18.0); Lymphocytes % 80.7 % (10-50); Mean Corpuscular HGB Conc 32.6 g/dL (31.8-35.4); Mean Corpuscular Hemoglobin 35.3 pg (27.0-31.2); Mean Corpuscular Volume 108.1 fl (80-94); Mean Platelet Volume 10.7 fl (7.4-10.4); Monocytes % 0.7 % (1.7-9.3); Neutrophils # 0.2 K/mm3 (1.8-7.8); Platelet Count 143 K/mm3 (142-424); Red Blood Count 2.97 M/mm3 (4.60-6.20); White Blood Count 1.3 K/mm3 (4.8-10.8)
[2020-12-28 12:50] LABS: Neutrophils % 11.3 % (37.0-80.0)
[2020-12-28 12:51] LABS: MANUAL DIFFERENTIAL MANUAL DIFFERENTIAL (MANUAL DIFF)
[2020-12-28 12:53] LABS: Chloride 109 mmol/L (98-107); Potassium 4.5 mmoL/L (3.5-5.1); Sodium 141 mmol/L (136-145)
[2020-12-28 12:56] LABS: Alanine Aminotransferase 13 U/L (12-78); Albumin Level 3.7 g/dl (3.5-5.0); Albumin/Globulin Ratio 1.3 (1.1-1.8); Alkaline Phosphatase 73 U/L (38-126); Anion Gap 9.5 mEq/L (5-15); Aspartate Amino Transferase 23 U/L (17-59); Bilirubin,Total 0.7 mg/dl (0.2-1.3); Blood Urea Nitrogen 22 mg/dl (9-20); Calcium 9.3 mg/dl (8.4-10.2); Carbon Dioxide 27 mmol/L (22.0-30.0); Creatinine Clearance Estimated 87 mL/min (50-200); Estimated Glomerular Filt Rate 65 ml/min (>60); GFR (African American) 79 ML/MIN (>60); Globulin 2.9 g/dL (1.3-3.2); Glucose 107 mg/dl (74-100); Total Protein,Serum 6.6 g/dl (6.3-8.2)
[2020-12-28 13:00] LABS: Eosinophils % 4 % (0-3); Lymphocytes % 77 % (10-50); Neutrophils % 18 % (42-76); Platelet Estimate Slight Decrease; RBC Morphology Normal; Total Cells Counted 51
--- NOTE | 2020-12-28 14:16 | PC.NURSE ---
1235 - BLOOD DRAWN FROM LEFT AC USING BUTTERFLY NEEDLE TO CHECK CBC, CMP PRIOR TO ONCOLOGY APPT.
== END 2020-12-28 12:45 | disposition home or self-care (01) ==
LOC: INF 12:27
PROVIDERS: Visit Provider Internal Medicine Medical Oncology
DX: D61.818 Other pancytopenia (principal); D72.819 Decreased white blood cell count, unspecified
CPT/HCPCS: 80053; 85007; 85025

== ENCOUNTER 2021-01-01 08:36 | Outpatient (CLI) | payer MEDICARE, MEDICAID, SELFPAY ==
[2021-01-01 09:02] VITALS: BMI 32.1
[2021-01-01 09:15] LABS: Basophils % 2.6 % (0.1-2.0); Eosinophils # 0.1 K/mm3 (0.0-0.4); Eosinophils % 5.4 % (0.1-12.0); Hematocrit 35.6 % (42.0-52.0); Hemoglobin 11.3 g/dL (14.1-18.0); Lymphocytes # 0.9 K/mm3 (0.7-4.5); Lymphocytes % 86.3 % (10-50); Mean Corpuscular HGB Conc 31.6 g/dL (31.8-35.4); Mean Corpuscular Hemoglobin 34.6 pg (27.0-31.2); Mean Corpuscular Volume 109.5 fl (80-94); Mean Platelet Volume 9.1 fl (7.4-10.4); Monocytes % 1.3 % (1.7-9.3); Neutrophils # 0.1 K/mm3 (1.8-7.8); Platelet Count 252 K/mm3 (142-424); Red Blood Count 3.25 M/mm3 (4.60-6.20); Red Cell Distribution Width 15.8 % (11.5-17.5); White Blood Count 1.1 K/mm3 (4.8-10.8)
[2021-01-01 09:18] LABS: Neutrophils % 4.3 % (37.0-80.0)
[2021-01-01 09:19] LABS: MANUAL DIFFERENTIAL MANUAL DIFFERENTIAL (MANUAL DIFF)
[2021-01-01 10:05] LABS: Eosinophils % 4 % (0-3); Lymphocytes % 84 % (10-50); Monocytes % 2 % (2-9); Neutrophils % 10 % (42-76); Total Cells Counted 50
[2021-01-01 10:06] LABS: Macrocytosis 2+; Platelet Estimate Normal
[2021-01-01 10:52] VITALS: BP 130/68; PULSE 68; RESP 18; TEMP 36.7; O2SAT 98
[2021-01-01 11:28] VITALS: BP 142/63; PULSE 58; RESP 18; O2SAT 99
[2021-01-01 11:58] VITALS: BP 136/69; PULSE 61; RESP 18; O2SAT 99
[2021-01-01 12:28] VITALS: BP 134/67; PULSE 59; RESP 18; O2SAT 98
[2021-01-01 12:45] VITALS: BP 136/70; PULSE 57; RESP 18; O2SAT 99
== END 2021-01-01 12:48 | disposition home or self-care (01) ==
LOC: INF 08:36
PROVIDERS: Visit Provider Internal Medicine Medical Oncology
DX: D46.9 Myelodysplastic syndrome, unspecified (principal)
CPT/HCPCS: 85007; 85025; 96413; J0894

== ENCOUNTER 2021-01-02 08:48 | Outpatient (CLI) | payer MEDICARE, MEDICAID, SELFPAY ==
[2021-01-02 10:30] VITALS: BP 135/55; PULSE 68; RESP 20; TEMP 36.9; O2SAT 95
[2021-01-02 11:00] VITALS: BP 127/58; PULSE 68; RESP 20; TEMP 36.9; O2SAT 95
== END 2021-01-02 11:00 | disposition home or self-care (01) ==
LOC: INF 08:48
PROVIDERS: Visit Provider Internal Medicine Medical Oncology
DX: Z51.11 Encounter for antineoplastic chemotherapy (principal); D46.9 Myelodysplastic syndrome, unspecified
CPT/HCPCS: 96413; J0894

== ENCOUNTER 2021-01-03 08:34 | Outpatient (CLI) | payer MEDICARE, MEDICAID, SELFPAY ==
[2021-01-03 08:43] VITALS: BP 136/65; PULSE 64; RESP 18; TEMP 36.4; O2SAT 97
[2021-01-03 09:20] VITALS: BP 149/62; PULSE 60; RESP 18; O2SAT 98
[2021-01-03 09:50] VITALS: BP 139/67; PULSE 61; RESP 18; O2SAT 98
[2021-01-03 10:30] VITALS: BP 135/62; PULSE 59; RESP 18; O2SAT 98
== END 2021-01-03 10:30 | disposition home or self-care (01) ==
LOC: INF 08:34
PROVIDERS: Visit Provider Internal Medicine Medical Oncology
DX: Z51.11 Encounter for antineoplastic chemotherapy (principal); D46.9 Myelodysplastic syndrome, unspecified
CPT/HCPCS: 96413; J0894

== ENCOUNTER 2021-01-04 08:36 | Outpatient (CLI) | payer MEDICARE, MEDICAID, SELFPAY ==
[2021-01-04 09:20] VITALS: BP 131/63; PULSE 64; RESP 18; TEMP 36.2; O2SAT 98
[2021-01-04 09:40] VITALS: BP 136/69; PULSE 65; RESP 18
[2021-01-04 10:10] VITALS: BP 155/71; PULSE 68; RESP 18
[2021-01-04 10:40] VITALS: BP 136/72; PULSE 68; RESP 18
== END 2021-01-04 10:40 | disposition home or self-care (01) ==
LOC: INF 08:37
PROVIDERS: Visit Provider Internal Medicine Medical Oncology
DX: D46.9 Myelodysplastic syndrome, unspecified (principal)
CPT/HCPCS: 96413; J0894

== ENCOUNTER 2021-01-05 08:10 | Outpatient (CLI) | payer MEDICARE, MEDICAID, SELFPAY ==
[2021-01-05 08:58] VITALS: BP 148/66; PULSE 63; RESP 18; TEMP 36.4; O2SAT 97
[2021-01-05 09:15] VITALS: BP 135/59; PULSE 59; RESP 18
[2021-01-05 09:30] VITALS: BP 130/64; PULSE 59; RESP 18
[2021-01-05 09:45] VITALS: BP 137/53; PULSE 57; RESP 18
[2021-01-05 10:05] VITALS: RESP 18
[2021-01-05 10:20] VITALS: BP 146/63; PULSE 57; RESP 18; O2SAT 97
== END 2021-01-05 10:20 | disposition home or self-care (01) ==
LOC: INF 08:17
PROVIDERS: Visit Provider Internal Medicine Medical Oncology
DX: D46.9 Myelodysplastic syndrome, unspecified (principal)
CPT/HCPCS: 96413; J0894

== ENCOUNTER 2021-01-25 13:30 | Outpatient (CLI) | payer MEDICARE, MEDICAID, SELFPAY ==
[2021-01-25 13:32] VITALS: BMI 32.5
[2021-01-25 13:48] LABS: Basophils # 0.1 K/mm3 (0-0.2); Basophils % 3.7 % (0.1-2.0); Eosinophils # 0.1 K/mm3 (0.0-0.4); Eosinophils % 5.8 % (0.1-12.0); Hematocrit 36.8 % (42.0-52.0); Hemoglobin 11.9 g/dL (14.1-18.0); Lymphocytes # 1.5 K/mm3 (0.7-4.5); Lymphocytes % 67.3 % (10-50); Mean Corpuscular HGB Conc 32.4 g/dL (31.8-35.4); Mean Corpuscular Hemoglobin 33.8 pg (27.0-31.2); Mean Corpuscular Volume 104.4 fl (80-94); Mean Platelet Volume 9.5 fl (7.4-10.4); Monocytes % 0.9 % (1.7-9.3); Neutrophils # 0.5 K/mm3 (1.8-7.8); Neutrophils % 22.3 % (37.0-80.0); Platelet Count 191 K/mm3 (142-424); Red Blood Count 3.52 M/mm3 (4.60-6.20); White Blood Count 2.2 K/mm3 (4.8-10.8)
[2021-01-25 13:52] LABS: Chloride 106 mmol/L (98-107); Potassium 4.5 mmoL/L (3.5-5.1); Sodium 138 mmol/L (136-145)
[2021-01-25 13:54] LABS: Blood Urea Nitrogen 36 mg/dl (9-20); Creatinine Clearance Estimated 82 mL/min (50-200); Estimated Glomerular Filt Rate 59 ml/min (>60); GFR (African American) 71 ML/MIN (>60); MANUAL DIFFERENTIAL MANUAL DIFFERENTIAL (MANUAL DIFF)
[2021-01-25 13:55] LABS: Alanine Aminotransferase 15 U/L (12-78); Albumin Level 3.7 g/dl (3.5-5.0); Albumin/Globulin Ratio 1.4 (1.1-1.8); Alkaline Phosphatase 77 U/L (38-126); Anion Gap 8.5 mEq/L (5-15); Aspartate Amino Transferase 25 U/L (17-59); Bilirubin,Total 0.6 mg/dl (0.2-1.3); Calcium 9.2 mg/dl (8.4-10.2); Carbon Dioxide 28 mmol/L (22.0-30.0); Globulin 2.7 g/dL (1.3-3.2); Glucose 97 mg/dl (74-100); Total Protein,Serum 6.4 g/dl (6.3-8.2)
[2021-01-25 14:08] LABS: Acanthocytes 1+; Anisocytosis 1+; Eosinophils % 4 % (0-3); Lymphocytes % 61 % (10-50); Macrocytosis 1+; Monocytes % 4 % (2-9); Neutrophils % 31 % (42-76); Platelet Estimate Normal; Poikilocytosis 1+; Total Cells Counted 100
--- NOTE | 2021-01-25 14:23 | PC.NURSE ---
1335 Patient arrived for labs to be done prior to appointment with Dr. Pineda today as scheduled. CBC/CMP drawn per MD order. 1400 Labs reviewed per MD/staff at appointment/no new orders given at this time.
== END 2021-01-25 14:25 | disposition home or self-care (01) ==
LOC: INF 13:30
PROVIDERS: Visit Provider Internal Medicine Medical Oncology
DX: D46.9 Myelodysplastic syndrome, unspecified (principal)
CPT/HCPCS: 80053; 85007; 85025

== ENCOUNTER 2021-01-29 08:31 | Outpatient (CLI) | payer MEDICARE, MEDICAID, SELFPAY ==
[2021-01-29 08:48] VITALS: BP 158/68; PULSE 66; RESP 18; TEMP 36.4; O2SAT 98
[2021-01-29 09:14] VITALS: BP 145/70; PULSE 66; RESP 18; O2SAT 98
[2021-01-29 09:44] VITALS: BP 137/64; PULSE 56; RESP 18; O2SAT 97
[2021-01-29 10:14] VITALS: BP 141/78; PULSE 64; RESP 18; O2SAT 98
[2021-01-29 10:35] VITALS: BP 152/74; PULSE 58; RESP 18; O2SAT 98
== END 2021-01-29 10:35 | disposition home or self-care (01) ==
LOC: INF 08:31
PROVIDERS: Visit Provider Internal Medicine Medical Oncology
DX: D46.9 Myelodysplastic syndrome, unspecified (principal)
CPT/HCPCS: 96413; J0894

== ENCOUNTER 2021-01-30 08:34 | Outpatient (CLI) | payer MEDICARE, MEDICAID, SELFPAY ==
[2021-01-30 09:10] VITALS: BP 147/70; PULSE 60; RESP 20; TEMP 36.9; O2SAT 98
[2021-01-30 09:40] VITALS: BP 127/74; PULSE 68; RESP 20; TEMP 36.9; O2SAT 95
[2021-01-30 10:10] VITALS: BP 128/68; PULSE 60; RESP 20; TEMP 36.9; O2SAT 98
== END 2021-01-30 09:50 | disposition home or self-care (01) ==
LOC: INF 08:34
PROVIDERS: Visit Provider Internal Medicine Medical Oncology
DX: D46.9 Myelodysplastic syndrome, unspecified (principal)
CPT/HCPCS: 96413; J0894

== ENCOUNTER 2021-01-31 08:30 | Outpatient (CLI) | payer MEDICARE, MEDICAID, SELFPAY ==
[2021-01-31 08:30] VITALS: BP 148/60; PULSE 61; RESP 20; TEMP 36.1; O2SAT 98
[2021-01-31 09:08] VITALS: BP 131/58; PULSE 66; RESP 18; O2SAT 99
[2021-01-31 09:38] VITALS: BP 130/59; PULSE 67; RESP 18; O2SAT 99
[2021-01-31 10:08] VITALS: BP 140/61; PULSE 64; RESP 18; O2SAT 99
[2021-01-31 10:30] VITALS: BP 136/56; PULSE 55; RESP 18; O2SAT 98
--- NOTE | 2021-01-31 15:27 | DIET.NUTRFU ---
Pt contacted for nutritional consult for first dose chemotherapy. Pt states he is having no side effect issues. He stated he is trying to eat a healthy balanced diet and prioritize protein. Diet education/counseling provided for nutritional considerations oncology/general balanced diet.
== END 2021-01-31 10:30 | disposition home or self-care (01) ==
LOC: INF 08:33
PROVIDERS: Visit Provider Internal Medicine Medical Oncology
DX: D46.9 Myelodysplastic syndrome, unspecified (principal)
CPT/HCPCS: 96413; J0894

== ENCOUNTER 2021-02-01 08:28 | Outpatient (CLI) | payer MEDICARE, MEDICAID, SELFPAY ==
[2021-02-01 09:10] VITALS: BP 122/62; PULSE 55; RESP 18; TEMP 36.1; O2SAT 97
[2021-02-01 09:25] VITALS: BP 115/93; PULSE 55; RESP 18
[2021-02-01 09:40] VITALS: BP 131/80; PULSE 54; RESP 18
[2021-02-01 09:55] VITALS: BP 105/87; PULSE 54; RESP 18
[2021-02-01 10:10] VITALS: BP 163/73; PULSE 53; RESP 18
[2021-02-01 10:34] VITALS: BP 160/69; PULSE 64; RESP 18
== END 2021-02-01 10:34 | disposition home or self-care (01) ==
LOC: INF 08:28
PROVIDERS: Visit Provider Internal Medicine Medical Oncology
DX: D46.9 Myelodysplastic syndrome, unspecified (principal)
CPT/HCPCS: 96413; J0894

== ENCOUNTER 2021-02-02 08:20 | Outpatient (CLI) | payer MEDICARE, MEDICAID, SELFPAY ==
[2021-02-02 09:15] VITALS: BP 174/72; PULSE 55; RESP 18; TEMP 36.5; O2SAT 99
[2021-02-02 09:30] VITALS: BP 172/79; PULSE 58; RESP 18
[2021-02-02 09:45] VITALS: BP 170/73; PULSE 57; RESP 18
[2021-02-02 10:00] VITALS: BP 169/75; PULSE 56; RESP 18
[2021-02-02 10:15] VITALS: BP 169/74; PULSE 56; RESP 18
== END 2021-02-02 10:35 | disposition home or self-care (01) ==
LOC: INF 08:29
PROVIDERS: Visit Provider Internal Medicine Medical Oncology
DX: D46.9 Myelodysplastic syndrome, unspecified (principal)
CPT/HCPCS: 96413; J0894

== ENCOUNTER 2021-02-22 13:32 | Outpatient (CLI) | payer MEDICARE, MEDICAID, SELFPAY ==
[2021-02-22 13:35] VITALS: BMI 32.4
--- NOTE | 2021-02-22 13:40 | PC.NURSE ---
1340-pt here for lab draw;collect cbc and cmp sent specimens to lab;and sent pt to oncology appointment
[2021-02-22 13:48] LABS: Basophils # 0.1 K/mm3 (0-0.2); Eosinophils # 0.2 K/mm3 (0.0-0.4); Eosinophils % 8.7 % (0.1-12.0); Hematocrit 39.2 % (42.0-52.0); Hemoglobin 12.3 g/dL (14.1-18.0); Lymphocytes # 1.3 K/mm3 (0.7-4.5); Lymphocytes % 67.5 % (10-50); Mean Corpuscular HGB Conc 31.5 g/dL (31.8-35.4); Mean Corpuscular Hemoglobin 32.4 pg (27.0-31.2); Mean Corpuscular Volume 102.9 fl (80-94); Mean Platelet Volume 9.8 fl (7.4-10.4); Monocytes % 1.5 % (1.7-9.3); Neutrophils # 0.4 K/mm3 (1.8-7.8); Neutrophils % 22.4 % (37.0-80.0); Platelet Count 109 K/mm3 (142-424); Red Blood Count 3.81 M/mm3 (4.60-6.20); Red Cell Distribution Width 15.9 % (11.5-17.5); White Blood Count 1.9 K/mm3 (4.8-10.8)
[2021-02-22 13:50] LABS: MANUAL DIFFERENTIAL MANUAL DIFFERENTIAL (MANUAL DIFF)
[2021-02-22 13:52] LABS: Chloride 107 mmol/L (98-107)
[2021-02-22 13:53] LABS: Potassium 4.3 mmoL/L (3.5-5.1); Sodium 140 mmol/L (136-145)
[2021-02-22 13:55] LABS: Alanine Aminotransferase 16 U/L (12-78); Aspartate Amino Transferase 26 U/L (17-59); Blood Urea Nitrogen 27 mg/dl (9-20); Creatinine Clearance Estimated 75 mL/min (50-200); Estimated Glomerular Filt Rate 54 ml/min (>60); GFR (African American) 65 ML/MIN (>60)
[2021-02-22 13:56] LABS: Albumin/Globulin Ratio 1.4 (1.1-1.8); Alkaline Phosphatase 76 U/L (38-126); Anion Gap 9.3 mEq/L (5-15); Bilirubin,Total 0.6 mg/dl (0.2-1.3); Calcium 9.6 mg/dl (8.4-10.2); Carbon Dioxide 28 mmol/L (22.0-30.0); Globulin 2.8 g/dL (1.3-3.2); Glucose 105 mg/dl (74-100); Total Protein,Serum 6.8 g/dl (6.3-8.2)
[2021-02-22 14:08] LABS: Eosinophils % 10 % (0-3); Lymphocytes % 42 % (10-50); Monocytes % 2 % (2-9); Neutrophils % 23 % (42-76); Total Cells Counted 100
[2021-02-22 14:09] LABS: Macrocytosis 1+; Platelet Estimate Slight Decrease; Tear Drop Cells 1+
== END 2021-02-22 13:41 | disposition home or self-care (01) ==
LOC: INF 13:32
PROVIDERS: Visit Provider Internal Medicine Medical Oncology
DX: D46.9 Myelodysplastic syndrome, unspecified (principal)
CPT/HCPCS: 80053; 85007; 85025

== ENCOUNTER 2021-02-26 08:20 | Outpatient (CLI) | payer MEDICARE, MEDICAID, SELFPAY ==
[2021-02-26 08:30] VITALS: BMI 32.1
[2021-02-26 08:50] LABS: Basophils # 0.1 K/mm3 (0-0.2); Basophils % 4.7 % (0.1-2.0); Eosinophils # 0.3 K/mm3 (0.0-0.4); Eosinophils % 14.4 % (0.1-12.0); Hemoglobin 12.9 g/dL (14.1-18.0); Lymphocytes # 1.3 K/mm3 (0.7-4.5); Lymphocytes % 63.9 % (10-50); Mean Corpuscular HGB Conc 30.8 g/dL (31.8-35.4); Mean Corpuscular Volume 103.8 fl (80-94); Monocytes # 0.1 K/mm3 (0.1-1.0); Monocytes % 2.6 % (1.7-9.3); Neutrophils # 0.4 K/mm3 (1.8-7.8); Neutrophils % 19.1 % (37.0-80.0); Platelet Count 181 K/mm3 (142-424); Red Blood Count 4.04 M/mm3 (4.60-6.20); White Blood Count 2.1 K/mm3 (4.8-10.8)
[2021-02-26 08:57] LABS: Alanine Aminotransferase 18 U/L (12-78); Albumin Level 4.1 g/dl (3.5-5.0); Albumin/Globulin Ratio 1.4 (1.1-1.8); Alkaline Phosphatase 67 U/L (38-126); Aspartate Amino Transferase 29 U/L (17-59); Bilirubin,Total 0.7 mg/dl (0.2-1.3); Blood Urea Nitrogen 22 mg/dl (9-20); Calcium 9.6 mg/dl (8.4-10.2); Carbon Dioxide 27 mmol/L (22.0-30.0); Chloride 107 mmol/L (98-107); Creatinine Clearance Estimated 88 mL/min (50-200); Estimated Glomerular Filt Rate 65 ml/min (>60); GFR (African American) 79 ML/MIN (>60); Globulin 2.9 g/dL (1.3-3.2); Glucose 103 mg/dl (74-100); MANUAL DIFFERENTIAL MANUAL DIFFERENTIAL (MANUAL DIFF); Sodium 139 mmol/L (136-145)
[2021-02-26 09:15] LABS: Anion Gap 8.8 mEq/L (5-15); Potassium 3.8 mmoL/L (3.5-5.1)
[2021-02-26 09:26] LABS: Eosinophils % 13 % (0-3); Lymphocytes % 46 % (10-50); Monocytes % 13 % (2-9); Neutrophils % 27 % (42-76); Total Cells Counted 100
[2021-02-26 09:27] LABS: Platelet Estimate Normal
[2021-02-26 09:28] LABS: Hypochromasia 1+; Macrocytosis 2+
[2021-02-26 09:50] VITALS: BP 147/73; PULSE 68; RESP 18; O2SAT 96
[2021-02-26 10:10] VITALS: BP 145/69; PULSE 72; RESP 18
[2021-02-26 10:45] VITALS: BP 144/72; PULSE 67; RESP 18
[2021-02-26 11:20] VITALS: BP 152/78; PULSE 69; RESP 18
== END 2021-02-26 11:20 | disposition home or self-care (01) ==
LOC: INF 08:27
PROVIDERS: PCP Internal Medicine Medical Oncology; Visit Provider Internal Medicine Medical Oncology
DX: Z51.11 Encounter for antineoplastic chemotherapy (principal); D46.9 Myelodysplastic syndrome, unspecified
CPT/HCPCS: 80053; 85007; 85025; 96413; J0894

== ENCOUNTER 2021-02-27 08:41 | Outpatient (CLI) | payer MEDICARE, MEDICAID, SELFPAY ==
[2021-02-27 08:50] VITALS: BP 136/63; PULSE 88; RESP 18; TEMP 36.8; O2SAT 98
[2021-02-27 09:20] VITALS: BP 120/72; PULSE 78; RESP 18; O2SAT 98
[2021-02-27 09:50] VITALS: BP 130/78; PULSE 82; RESP 18; O2SAT 97
[2021-02-27 10:35] VITALS: BP 123/65; PULSE 70; RESP 18; O2SAT 97
== END 2021-02-27 10:35 | disposition home or self-care (01) ==
LOC: INF 08:42
PROVIDERS: Visit Provider Internal Medicine Medical Oncology
DX: D46.Z Other myelodysplastic syndromes (principal); Z51.11 Encounter for antineoplastic chemotherapy
CPT/HCPCS: 96413; J0894

== ENCOUNTER 2021-02-28 08:20 | Outpatient (CLI) | payer MEDICARE, MEDICAID, SELFPAY ==
[2021-02-28 09:10] VITALS: BP 144/68; PULSE 72; RESP 18; O2SAT 97
[2021-02-28 10:33] VITALS: BP 147/78; PULSE 68; RESP 18
== END 2021-02-28 10:33 | disposition home or self-care (01) ==
LOC: INF 08:27
PROVIDERS: Visit Provider Internal Medicine Medical Oncology
DX: Z51.11 Encounter for antineoplastic chemotherapy (principal); D46.Z Other myelodysplastic syndromes
CPT/HCPCS: 96413; J0894

== ENCOUNTER 2021-03-01 08:32 | Outpatient (CLI) | payer MEDICARE, MEDICAID, SELFPAY ==
[2021-03-01 08:48] VITALS: BP 130/69; PULSE 76; RESP 18; TEMP 36.7; O2SAT 97
[2021-03-01 09:15] VITALS: BP 139/70; PULSE 71; RESP 18; O2SAT 97
[2021-03-01 09:45] VITALS: BP 137/72; PULSE 74; RESP 18; O2SAT 97
[2021-03-01 10:15] VITALS: BP 144/78; PULSE 78; RESP 18; O2SAT 98
[2021-03-01 10:35] VITALS: BP 150/75; PULSE 67; RESP 18; O2SAT 97
== END 2021-03-01 10:35 | disposition home or self-care (01) ==
LOC: INF 08:32
PROVIDERS: Visit Provider Internal Medicine Medical Oncology
DX: Z51.11 Encounter for antineoplastic chemotherapy (principal); D46.Z Other myelodysplastic syndromes
CPT/HCPCS: 96413; J0894

== ENCOUNTER 2021-03-02 08:25 | Outpatient (CLI) | payer MEDICARE, MEDICAID, SELFPAY ==
[2021-03-02 08:40] VITALS: BP 168/86; PULSE 76; RESP 18; TEMP 36.1; O2SAT 97
[2021-03-02 09:12] VITALS: BP 138/73; PULSE 68; RESP 18; O2SAT 97
[2021-03-02 09:42] VITALS: BP 144/72; PULSE 71; RESP 18; O2SAT 98
[2021-03-02 10:12] VITALS: BP 149/78; PULSE 69; RESP 18; O2SAT 97
[2021-03-02 10:40] VITALS: BP 157/76; PULSE 65; RESP 18; O2SAT 98
== END 2021-03-02 10:40 | disposition home or self-care (01) ==
LOC: INF 08:33
PROVIDERS: Visit Provider Internal Medicine Medical Oncology
DX: Z51.11 Encounter for antineoplastic chemotherapy (principal); D46.Z Other myelodysplastic syndromes
CPT/HCPCS: 96413; J0894

== ENCOUNTER 2021-03-22 08:20 | Outpatient (CLI) | payer MEDICARE, MEDICAID, SELFPAY ==
[2021-03-22 08:23] VITALS: BMI 32.1
[2021-03-22 08:40] LABS: Basophils # 0.1 K/mm3 (0-0.2); Eosinophils # 0.4 K/mm3 (0.0-0.4); Eosinophils % 16.3 % (0.1-12.0); Hematocrit 40.6 % (42.0-52.0); Hemoglobin 13.3 g/dL (14.1-18.0); Lymphocytes # 1.4 K/mm3 (0.7-4.5); Lymphocytes % 55.2 % (10-50); Mean Corpuscular HGB Conc 32.8 g/dL (31.8-35.4); Mean Corpuscular Hemoglobin 32.4 pg (27.0-31.2); Mean Platelet Volume 9.2 fl (7.4-10.4); Monocytes # 0.1 K/mm3 (0.1-1.0); Monocytes % 2.1 % (1.7-9.3); Neutrophils # 0.6 K/mm3 (1.8-7.8); Neutrophils % 23.3 % (37.0-80.0); Platelet Count 126 K/mm3 (142-424); Red Cell Distribution Width 16.3 % (11.5-17.5); White Blood Count 2.4 K/mm3 (4.8-10.8)
[2021-03-22 08:43] LABS: Chloride 106 mmol/L (98-107); Potassium 4.2 mmoL/L (3.5-5.1); Sodium 139 mmol/L (136-145)
[2021-03-22 08:46] LABS: Alanine Aminotransferase 15 U/L (12-78); Albumin Level 3.9 g/dl (3.5-5.0); Albumin/Globulin Ratio 1.4 (1.1-1.8); Alkaline Phosphatase 87 U/L (38-126); Anion Gap 9.2 mEq/L (5-15); Aspartate Amino Transferase 25 U/L (17-59); Bilirubin,Total 0.7 mg/dl (0.2-1.3); Blood Urea Nitrogen 23 mg/dl (9-20); Calcium 9.1 mg/dl (8.4-10.2); Carbon Dioxide 28 mmol/L (22.0-30.0); Creatinine Clearance Estimated 81 mL/min (50-200); Estimated Glomerular Filt Rate 59 ml/min (>60); GFR (African American) 71 ML/MIN (>60); Globulin 2.8 g/dL (1.3-3.2); Glucose 108 mg/dl (74-100); Total Protein,Serum 6.7 g/dl (6.3-8.2)
[2021-03-22 09:00] LABS: MANUAL DIFFERENTIAL MANUAL DIFFERENTIAL (MANUAL DIFF)
[2021-03-22 09:16] LABS: Anisocytosis 1+; Eosinophils % 4 % (0-3); Lymphocytes % 66 % (10-50); Macrocytosis 1+; Monocytes % 4 % (2-9); Neutrophils % 26 % (42-76); Platelet Estimate Normal; Total Cells Counted 100
== END 2021-03-22 08:33 | disposition home or self-care (01) ==
LOC: INF 08:23
PROVIDERS: Visit Provider Internal Medicine Medical Oncology
DX: D46.Z Other myelodysplastic syndromes (principal)
CPT/HCPCS: 80053; 85007; 85025

== ENCOUNTER 2021-03-26 08:22 | Outpatient (CLI) | payer MEDICARE, MEDICAID, SELFPAY ==
[2021-03-26 09:10] VITALS: BP 149/61; PULSE 79; RESP 17; TEMP 36.4; O2SAT 98
[2021-03-26 09:25] VITALS: BP 133/65; PULSE 67
[2021-03-26 09:40] VITALS: BP 140/73; PULSE 65
[2021-03-26 09:55] VITALS: BP 137/75; PULSE 63
[2021-03-26 10:10] VITALS: BP 153/75; PULSE 64
[2021-03-26 10:32] VITALS: BP 165/75; PULSE 67; RESP 17; TEMP 36.6; O2SAT 96
== END 2021-03-26 10:34 | disposition home or self-care (01) ==
LOC: INF 08:22
PROVIDERS: Visit Provider Internal Medicine Medical Oncology
DX: Z51.11 Encounter for antineoplastic chemotherapy (principal); D46.Z Other myelodysplastic syndromes
CPT/HCPCS: 96413; J0894

== ENCOUNTER 2021-03-27 08:29 | Outpatient (CLI) | payer MEDICARE, MEDICAID, SELFPAY ==
[2021-03-27 08:31] VITALS: BP 137/80; PULSE 70; RESP 18; TEMP 36.4; O2SAT 98
[2021-03-27 09:05] VITALS: BP 135/69; PULSE 75; RESP 18; O2SAT 98
[2021-03-27 09:35] VITALS: BP 141/71; PULSE 72; RESP 18; O2SAT 98
[2021-03-27 10:05] VITALS: BP 147/76; PULSE 70; RESP 18; O2SAT 97
[2021-03-27 10:21] VITALS: BP 143/76; PULSE 66; RESP 18; O2SAT 98
== END 2021-03-27 10:21 | disposition home or self-care (01) ==
LOC: INF 08:29
PROVIDERS: Visit Provider Internal Medicine Medical Oncology
DX: D46.Z Other myelodysplastic syndromes (principal); Z51.11 Encounter for antineoplastic chemotherapy
CPT/HCPCS: 96413; J0894

== ENCOUNTER 2021-03-28 08:20 | Outpatient (CLI) | payer MEDICARE, MEDICAID, SELFPAY ==
[2021-03-28] VITALS (7 sets, daily range): BP systolic 136–155; BP diastolic 62–74; PULSE 61–71; RESP 18; O2SAT 97
== END 2021-03-28 10:25 | disposition home or self-care (01) ==
LOC: INF 08:28
PROVIDERS: Visit Provider Internal Medicine Medical Oncology
DX: Z51.11 Encounter for antineoplastic chemotherapy (principal); D46.Z Other myelodysplastic syndromes
CPT/HCPCS: 96413; J0894

== ENCOUNTER 2021-03-29 08:20 | Outpatient (CLI) | payer MEDICARE, MEDICAID, SELFPAY ==
[2021-03-29 09:05] VITALS: BP 155/71; PULSE 78; RESP 17; TEMP 36.8; O2SAT 97
[2021-03-29 09:20] VITALS: BP 150/71; PULSE 70
[2021-03-29 09:35] VITALS: BP 152/87; PULSE 67
[2021-03-29 09:50] VITALS: BP 156/79; PULSE 65
[2021-03-29 10:05] VITALS: BP 154/87; PULSE 87
[2021-03-29 10:22] VITALS: BP 161/89; PULSE 86; RESP 17; TEMP 36.7; O2SAT 98
== END 2021-03-29 10:27 | disposition home or self-care (01) ==
LOC: INF 08:28
PROVIDERS: Visit Provider Internal Medicine Medical Oncology
DX: Z51.11 Encounter for antineoplastic chemotherapy (principal); D46.Z Other myelodysplastic syndromes
CPT/HCPCS: 96413; J0894

== ENCOUNTER 2021-03-30 08:15 | Outpatient (CLI) | payer MEDICARE, MEDICAID, SELFPAY ==
[2021-03-30 09:02] VITALS: BP 146/68; PULSE 67; RESP 18; O2SAT 97
[2021-03-30 09:15] VITALS: BP 149/76; PULSE 61; RESP 18
[2021-03-30 09:30] VITALS: BP 167/75; PULSE 65; RESP 18
[2021-03-30 09:45] VITALS: BP 154/83; PULSE 62; RESP 18
[2021-03-30 10:00] VITALS: BP 179/85; PULSE 63; RESP 18
[2021-03-30 10:23] VITALS: BP 158/80; PULSE 52; RESP 18
== END 2021-03-30 10:23 | disposition home or self-care (01) ==
LOC: INF 08:23
PROVIDERS: Visit Provider Internal Medicine Medical Oncology
DX: Z51.11 Encounter for antineoplastic chemotherapy (principal); D46.Z Other myelodysplastic syndromes
CPT/HCPCS: 96413; J0894

== ENCOUNTER 2021-04-19 09:15 | Outpatient (CLI) | payer MEDICARE, MEDICAID, SELFPAY ==
[2021-04-19 09:17] VITALS: BMI 31.1
[2021-04-19 09:44] LABS: Basophils # 0.1 K/mm3 (0-0.2); Basophils % 4.7 % (0.1-2.0); Eosinophils # 0.4 K/mm3 (0.0-0.4); Eosinophils % 17.8 % (0.1-12.0); Hematocrit 39.8 % (42.0-52.0); Hemoglobin 13.5 g/dL (14.1-18.0); Lymphocytes # 1.3 K/mm3 (0.7-4.5); Lymphocytes % 53.3 % (10-50); Mean Corpuscular HGB Conc 33.9 g/dL (31.8-35.4); Mean Corpuscular Hemoglobin 33.1 pg (27.0-31.2); Mean Corpuscular Volume 97.8 fl (80-94); Mean Platelet Volume 9.2 fl (7.4-10.4); Monocytes # 0.1 K/mm3 (0.1-1.0); Monocytes % 2.5 % (1.7-9.3); Neutrophils # 0.6 K/mm3 (1.8-7.8); Neutrophils % 26.4 % (37.0-80.0); Platelet Count 122 K/mm3 (142-424); Red Blood Count 4.07 M/mm3 (4.60-6.20); Red Cell Distribution Width 16.5 % (11.5-17.5); White Blood Count 2.4 K/mm3 (4.8-10.8)
[2021-04-19 09:45] LABS: MANUAL DIFFERENTIAL MANUAL DIFFERENTIAL (MANUAL DIFF)
[2021-04-19 09:50] LABS: Chloride 108 mmol/L (98-107)
[2021-04-19 09:51] LABS: Potassium 4.4 mmoL/L (3.5-5.1); Sodium 141 mmol/L (136-145)
[2021-04-19 09:53] LABS: Alanine Aminotransferase 14 U/L (12-78); Albumin Level 3.9 g/dl (3.5-5.0); Albumin/Globulin Ratio 1.4 (1.1-1.8); Alkaline Phosphatase 72 U/L (38-126); Anion Gap 8.4 mEq/L (5-15); Aspartate Amino Transferase 25 U/L (17-59); Bilirubin,Total 0.7 mg/dl (0.2-1.3); Blood Urea Nitrogen 25 mg/dl (9-20); Calcium 9.1 mg/dl (8.4-10.2); Carbon Dioxide 29 mmol/L (22.0-30.0); Creatinine Clearance Estimated 77 mL/min (50-200); Estimated Glomerular Filt Rate 59 ml/min (>60); GFR (African American) 71 ML/MIN (>60); Globulin 2.7 g/dL (1.3-3.2); Glucose 96 mg/dl (74-100); Total Protein,Serum 6.6 g/dl (6.3-8.2)
[2021-04-19 09:59] LABS: Eosinophils % 4 % (0-3); Lymphocytes % 53 % (10-50); Monocytes % 3 % (2-9); Neutrophils % 40 % (42-76); Platelet Estimate Normal; RBC Morphology Normal; Total Cells Counted 100
--- NOTE | 2021-04-19 11:47 | PC.NURSE ---
0925- pt labs drawn with a butterfly needle in the left AC. pt tolerated well. pt blood specimens walked to lab by this nurse and given to Nelia in lab.
== END 2021-04-19 09:32 | disposition home or self-care (01) ==
LOC: INF 09:15
PROVIDERS: Visit Provider Internal Medicine Medical Oncology
DX: D46.9 Myelodysplastic syndrome, unspecified (principal)
CPT/HCPCS: 80053; 85007; 85025

== ENCOUNTER 2021-04-23 08:10 | Outpatient (CLI) | payer MEDICARE, MEDICAID, SELFPAY ==
[2021-04-23 09:15] VITALS: BP 145/76; PULSE 65; RESP 18; O2SAT 95
[2021-04-23 09:30] VITALS: BP 129/81; PULSE 60; RESP 18
[2021-04-23 09:45] VITALS: BP 122/83; PULSE 58; RESP 18
[2021-04-23 10:00] VITALS: BP 121/79; PULSE 59; RESP 18
[2021-04-23 10:15] VITALS: BP 134/83; PULSE 61; RESP 18
[2021-04-23 10:30] VITALS: BP 153/75; PULSE 64; RESP 18
== END 2021-04-23 10:30 | disposition home or self-care (01) ==
LOC: INF 08:11
PROVIDERS: Visit Provider Internal Medicine Medical Oncology
DX: Z51.11 Encounter for antineoplastic chemotherapy (principal); D46.9 Myelodysplastic syndrome, unspecified
CPT/HCPCS: 96413; J0894

== ENCOUNTER 2021-04-24 08:10 | Outpatient (CLI) | payer MEDICARE, MEDICAID, SELFPAY ==
[2021-04-24] VITALS (7 sets, daily range): BP systolic 135–148; BP diastolic 56–74; PULSE 59–67; RESP 17; TEMP 36.8; O2SAT 97
--- NOTE | 2021-04-24 12:22 | PC.NURSE ---
infusion completed at 1035. pt tolerated well. no complaints at this time
== END 2021-04-24 10:57 | disposition home or self-care (01) ==
LOC: INF 08:15
PROVIDERS: Visit Provider Internal Medicine Medical Oncology
DX: D46.9 Myelodysplastic syndrome, unspecified (principal)
CPT/HCPCS: 96413; J0894

== ENCOUNTER 2021-04-25 08:25 | Outpatient (CLI) | payer MEDICARE, MEDICAID, SELFPAY ==
[2021-04-25 09:03] VITALS: BP 127/70; PULSE 70; RESP 18; TEMP 36.6; O2SAT 98
[2021-04-25 09:33] VITALS: BP 140/61; PULSE 75; RESP 18; O2SAT 98
[2021-04-25 10:03] VITALS: BP 146/69; PULSE 78; RESP 18; O2SAT 97
[2021-04-25 10:37] VITALS: BP 155/80; PULSE 65; RESP 18; O2SAT 98
== END 2021-04-25 10:37 | disposition home or self-care (01) ==
LOC: INF 08:25
PROVIDERS: Visit Provider Internal Medicine Medical Oncology
DX: Z51.11 Encounter for antineoplastic chemotherapy (principal); D46.9 Myelodysplastic syndrome, unspecified
CPT/HCPCS: 96413; J0894

== ENCOUNTER 2021-04-26 11:10 | Outpatient (CLI) | payer MEDICARE, MEDICAID, SELFPAY ==
[2021-04-26 11:55] VITALS: BP 128/72; PULSE 65; RESP 17; TEMP 36.9; O2SAT 100
[2021-04-26 12:10] VITALS: BP 127/67; PULSE 65
[2021-04-26 12:25] VITALS: BP 125/68; PULSE 66
[2021-04-26 12:40] VITALS: BP 122/71; PULSE 64
[2021-04-26 12:55] VITALS: BP 129/75; PULSE 62
--- NOTE | 2021-04-26 12:55 | PC.NURSE ---
1255- infusion complete at this time. pt flushing with NS
[2021-04-26 13:05] VITALS: BP 135/72; PULSE 66; RESP 17; O2SAT 98
== END 2021-04-26 13:07 | disposition home or self-care (01) ==
LOC: INF 11:12
PROVIDERS: Visit Provider Internal Medicine Medical Oncology
DX: Z51.11 Encounter for antineoplastic chemotherapy (principal); D64.9 Anemia, unspecified
CPT/HCPCS: 96413; J0894

== ENCOUNTER 2021-04-27 08:05 | Outpatient (CLI) | payer MEDICARE, MEDICAID, SELFPAY ==
[2021-04-27 09:08] VITALS: BP 131/64; PULSE 61; RESP 18; TEMP 35.8; O2SAT 96
[2021-04-27 09:23] VITALS: BP 133/66; PULSE 59; RESP 18
[2021-04-27 09:38] VITALS: BP 139/60; PULSE 61; RESP 18
[2021-04-27 09:53] VITALS: BP 137/63; PULSE 60; RESP 18
[2021-04-27 10:08] VITALS: BP 143/65; PULSE 59; RESP 18
== END 2021-04-27 10:25 | disposition home or self-care (01) ==
LOC: INF 08:13
PROVIDERS: Visit Provider Internal Medicine Medical Oncology
DX: D46.9 Myelodysplastic syndrome, unspecified (principal)
CPT/HCPCS: 96413; J0894

== ENCOUNTER 2021-05-17 08:59 | Outpatient (CLI) | payer MEDICARE, MEDICAID, SELFPAY ==
[2021-05-17 09:07] VITALS: BMI 31.8
[2021-05-17 09:19] LABS: Basophils # 0.1 K/mm3 (0-0.2); Basophils % 3.8 % (0.1-2.0); Eosinophils # 0.3 K/mm3 (0.0-0.4); Eosinophils % 11.8 % (0.1-12.0); Hematocrit 39.9 % (42.0-52.0); Hemoglobin 13.2 g/dL (14.1-18.0); Lymphocytes # 1.2 K/mm3 (0.7-4.5); Lymphocytes % 51.4 % (10-50); Mean Corpuscular HGB Conc 33.1 g/dL (31.8-35.4); Mean Corpuscular Hemoglobin 32.8 pg (27.0-31.2); Mean Corpuscular Volume 99.1 fl (80-94); Mean Platelet Volume 9.1 fl (7.4-10.4); Monocytes # 0.1 K/mm3 (0.1-1.0); Monocytes % 2.6 % (1.7-9.3); Neutrophils # 0.7 K/mm3 (1.8-7.8); Neutrophils % 30.4 % (37.0-80.0); Platelet Count 106 K/mm3 (142-424); Red Blood Count 4.02 M/mm3 (4.60-6.20); Red Cell Distribution Width 16.8 % (11.5-17.5); White Blood Count 2.3 K/mm3 (4.8-10.8)
[2021-05-17 09:21] LABS: MANUAL DIFFERENTIAL MANUAL DIFFERENTIAL (MANUAL DIFF)
[2021-05-17 09:25] LABS: Chloride 107 mmol/L (98-107); Sodium 140 mmol/L (136-145)
[2021-05-17 09:26] LABS: Potassium 4.2 mmoL/L (3.5-5.1)
[2021-05-17 09:28] LABS: Alanine Aminotransferase 13 U/L (12-78); Albumin Level 3.8 g/dl (3.5-5.0); Albumin/Globulin Ratio 1.4 (1.1-1.8); Alkaline Phosphatase 73 U/L (38-126); Anion Gap 9.2 mEq/L (5-15); Aspartate Amino Transferase 23 U/L (17-59); Bilirubin,Total 0.8 mg/dl (0.2-1.3); Blood Urea Nitrogen 23 mg/dl (9-20); Carbon Dioxide 28 mmol/L (22.0-30.0); Creatinine Clearance Estimated 86 mL/min (50-200); Estimated Glomerular Filt Rate 65 ml/min (>60); GFR (African American) 79 ML/MIN (>60); Globulin 2.7 g/dL (1.3-3.2); Total Protein,Serum 6.5 g/dl (6.3-8.2)
[2021-05-17 09:29] LABS: Glucose 103 mg/dl (74-100)
[2021-05-17 09:32] LABS: Eosinophils % 20 % (0-3); Lymphocytes % 35 % (10-50); Monocytes % 4 % (2-9); Neutrophils % 37 % (42-76); Total Cells Counted 100
[2021-05-17 09:33] LABS: Anisocytosis 1+; Hypochromasia 1+; Macrocytosis 1+; Platelet Estimate Normal
== END 2021-05-17 09:13 | disposition home or self-care (01) ==
LOC: INF 09:06
PROVIDERS: Visit Provider Internal Medicine Medical Oncology
DX: D46.9 Myelodysplastic syndrome, unspecified (principal)
CPT/HCPCS: 80053; 85007; 85025

== ENCOUNTER 2021-05-21 08:10 | Outpatient (CLI) | payer MEDICARE, MEDICAID, SELFPAY ==
[2021-05-21 08:57] VITALS: BP 138/78; PULSE 65; RESP 18; O2SAT 96
[2021-05-21 09:15] VITALS: BP 142/70; PULSE 58; RESP 18
[2021-05-21 09:30] VITALS: BP 156/71; PULSE 60; RESP 18
[2021-05-21 09:45] VITALS: BP 161/75; PULSE 62; RESP 18
[2021-05-21 10:05] VITALS: BP 156/72; PULSE 56; RESP 18
[2021-05-21 10:25] VITALS: BP 160/72; PULSE 60; RESP 18
== END 2021-05-21 10:25 | disposition home or self-care (01) ==
LOC: INF 08:17
PROVIDERS: Visit Provider Internal Medicine Medical Oncology
DX: Z51.11 Encounter for antineoplastic chemotherapy (principal); D46.9 Myelodysplastic syndrome, unspecified
CPT/HCPCS: 96413; J0894

== ENCOUNTER 2021-05-22 08:20 | Outpatient (CLI) | payer MEDICARE, MEDICAID, SELFPAY ==
[2021-05-22 08:29] VITALS: BP 146/73; PULSE 68; RESP 18; TEMP 36.6; O2SAT 98
[2021-05-22 08:56] VITALS: BP 145/73; PULSE 69; RESP 18; O2SAT 99
[2021-05-22 09:26] VITALS: BP 148/76; PULSE 67; RESP 18; O2SAT 98
[2021-05-22 10:12] VITALS: BP 152/70; PULSE 70; RESP 18; O2SAT 99
== END 2021-05-22 10:15 | disposition home or self-care (01) ==
LOC: INF 08:21
PROVIDERS: Visit Provider Internal Medicine Medical Oncology
DX: Z51.11 Encounter for antineoplastic chemotherapy (principal); D46.9 Myelodysplastic syndrome, unspecified
CPT/HCPCS: 96413; J0894

== ENCOUNTER 2021-05-23 08:18 | Outpatient (CLI) | payer MEDICARE, MEDICAID, SELFPAY ==
[2021-05-23 09:14] VITALS: BP 138/67; PULSE 71; RESP 17; TEMP 36.5; O2SAT 96
[2021-05-23 09:45] VITALS: BP 137/82; PULSE 69
[2021-05-23 10:15] VITALS: BP 160/82; PULSE 72
[2021-05-23 10:25] VITALS: BP 159/76; PULSE 73; RESP 17; O2SAT 96
== END 2021-05-23 10:27 | disposition home or self-care (01) ==
LOC: INF 08:18
PROVIDERS: Visit Provider Internal Medicine Medical Oncology
DX: Z51.11 Encounter for antineoplastic chemotherapy (principal); D46.9 Myelodysplastic syndrome, unspecified
CPT/HCPCS: 96413; J0894

== ENCOUNTER 2021-05-24 08:32 | Outpatient (CLI) | payer MEDICARE, MEDICAID, SELFPAY ==
[2021-05-24 08:35] VITALS: BP 140/65; PULSE 73; RESP 18; TEMP 36.3; O2SAT 97
[2021-05-24 09:07] VITALS: BP 144/69; PULSE 78; RESP 18; O2SAT 97
[2021-05-24 09:37] VITALS: BP 152/61; PULSE 71; RESP 18; O2SAT 98
[2021-05-24 10:07] VITALS: BP 149/67; PULSE 76; RESP 18; O2SAT 97
[2021-05-24 10:25] VITALS: BP 147/61; PULSE 70; RESP 18; O2SAT 97
== END 2021-05-24 10:30 | disposition home or self-care (01) ==
LOC: INF 08:35
PROVIDERS: Visit Provider Internal Medicine Medical Oncology
DX: Z51.11 Encounter for antineoplastic chemotherapy (principal); D46.9 Myelodysplastic syndrome, unspecified
CPT/HCPCS: 96413; J0894

== ENCOUNTER 2021-05-25 08:17 | Outpatient (CLI) | payer MEDICARE, MEDICAID, SELFPAY ==
[2021-05-25 08:57] VITALS: BP 152/78; PULSE 74; RESP 18; TEMP 36.5; O2SAT 96
[2021-05-25 09:15] VITALS: BP 147/71; PULSE 59; RESP 18
[2021-05-25 09:30] VITALS: BP 154/78; PULSE 63; RESP 18
[2021-05-25 09:45] VITALS: BP 168/69; PULSE 63; RESP 18
[2021-05-25 10:00] VITALS: BP 152/70; PULSE 64; RESP 18
[2021-05-25 10:20] VITALS: BP 140/70; PULSE 63; RESP 18; O2SAT 95
== END 2021-05-25 10:20 | disposition home or self-care (01) ==
LOC: INF 08:17
PROVIDERS: Visit Provider Internal Medicine Medical Oncology
DX: Z51.11 Encounter for antineoplastic chemotherapy (principal); D46.9 Myelodysplastic syndrome, unspecified
CPT/HCPCS: 96413; J0894

== ENCOUNTER 2021-06-14 09:09 | Outpatient (CLI) | payer MEDICARE, MEDICAID, SELFPAY ==
[2021-06-14 09:15] VITALS: BMI 32.3
--- NOTE | 2021-06-14 09:19 | PC.NURSE ---
pt here today for labs to be drawn prior to md appt. pt accessed using butterfly needle per marcos ambrose rn. blood obtained for labs and specimen sent to lab for analysis.
[2021-06-14 09:30] LABS: Basophils # 0.1 K/mm3 (0-0.2); Eosinophils # 0.3 K/mm3 (0.0-0.4); Eosinophils % 11.5 % (0.1-12.0); Hematocrit 42.6 % (42.0-52.0); Hemoglobin 13.8 g/dL (14.1-18.0); Lymphocytes # 1.3 K/mm3 (0.7-4.5); Lymphocytes % 55.6 % (10-50); Mean Corpuscular HGB Conc 32.3 g/dL (31.8-35.4); Mean Corpuscular Hemoglobin 33.6 pg (27.0-31.2); Mean Corpuscular Volume 103.9 fl (80-94); Mean Platelet Volume 9.9 fl (7.4-10.4); Monocytes # 0.1 K/mm3 (0.1-1.0); Monocytes % 2.2 % (1.7-9.3); Neutrophils # 0.6 K/mm3 (1.8-7.8); Neutrophils % 26.8 % (37.0-80.0); Platelet Count 135 K/mm3 (142-424); White Blood Count 2.3 K/mm3 (4.8-10.8)
[2021-06-14 09:32] LABS: MANUAL DIFFERENTIAL MANUAL DIFFERENTIAL (MANUAL DIFF)
[2021-06-14 09:34] LABS: Chloride 106 mmol/L (98-107)
[2021-06-14 09:35] LABS: Potassium 4.4 mmoL/L (3.5-5.1); Sodium 141 mmol/L (136-145)
[2021-06-14 09:37] LABS: Alanine Aminotransferase 13 U/L (12-78); Albumin Level 3.9 g/dl (3.5-5.0); Albumin/Globulin Ratio 1.3 (1.1-1.8); Alkaline Phosphatase 83 U/L (38-126); Anion Gap 11.4 mEq/L (5-15); Aspartate Amino Transferase 26 U/L (17-59); Bilirubin,Total 0.6 mg/dl (0.2-1.3); Blood Urea Nitrogen 22 mg/dl (9-20); Calcium 9.3 mg/dl (8.4-10.2); Carbon Dioxide 28 mmol/L (22.0-30.0); Creatinine Clearance Estimated 87 mL/min (50-200); Estimated Glomerular Filt Rate 65 ml/min (>60); GFR (African American) 79 ML/MIN (>60); Glucose 106 mg/dl (74-100); Total Protein,Serum 6.9 g/dl (6.3-8.2)
[2021-06-14 09:49] LABS: Eosinophils % 12 % (0-3); Lymphocytes % 55 % (10-50); Monocytes % 1 % (2-9); Neutrophils % 32 % (42-76); Platelet Estimate Slight Decrease; RBC Morphology Normal; Total Cells Counted 100
== END 2021-06-14 09:15 | disposition home or self-care (01) ==
LOC: INF 09:10
PROVIDERS: PCP Internal Medicine Adolescent Medicine; Visit Provider Internal Medicine Medical Oncology
DX: D46.9 Myelodysplastic syndrome, unspecified (principal)
CPT/HCPCS: 80053; 85007; 85025

== ENCOUNTER 2021-06-19 08:11 | Outpatient (CLI) | payer MEDICARE, MEDICAID, SELFPAY ==
[2021-06-19 08:45] VITALS: BP 121/68; PULSE 85; RESP 18; TEMP 36.8; O2SAT 98
[2021-06-19 09:37] VITALS: BP 134/75; PULSE 80; RESP 18; O2SAT 99
[2021-06-19 10:07] VITALS: BP 140/73; PULSE 75; RESP 18; O2SAT 99
[2021-06-19 10:55] VITALS: BP 146/74; PULSE 67; RESP 18; O2SAT 98
== END 2021-06-19 10:55 | disposition home or self-care (01) ==
LOC: INF 08:12
PROVIDERS: PCP Internal Medicine Adolescent Medicine; Visit Provider Internal Medicine Medical Oncology
DX: Z51.11 Encounter for antineoplastic chemotherapy (principal); D46.9 Myelodysplastic syndrome, unspecified
CPT/HCPCS: 96413; J0894

== ENCOUNTER 2021-06-20 08:08 | Outpatient (CLI) | payer MEDICARE, MEDICAID, SELFPAY ==
[2021-06-20 08:28] VITALS: BP 127/62; PULSE 76; RESP 18; TEMP 36.3; O2SAT 97
[2021-06-20 09:15] VITALS: BP 120/63; PULSE 70; RESP 18; O2SAT 98
[2021-06-20 09:45] VITALS: BP 138/69; PULSE 74; RESP 18; O2SAT 97
[2021-06-20 10:25] VITALS: BP 141/70; PULSE 61; RESP 18; O2SAT 97
== END 2021-06-20 10:37 | disposition home or self-care (01) ==
LOC: INF 08:09
PROVIDERS: PCP Internal Medicine Adolescent Medicine; Visit Provider Internal Medicine Medical Oncology
DX: D46.9 Myelodysplastic syndrome, unspecified (principal)
CPT/HCPCS: 96413; J0894

== ENCOUNTER 2021-06-21 08:00 | Outpatient (CLI) | payer MEDICARE, MEDICAID, SELFPAY ==
[2021-06-21] VITALS (9 sets, daily range): BP systolic 137–160; BP diastolic 52–89; PULSE 62–93; RESP 17; TEMP 36.4; O2SAT 97–98
== END 2021-06-21 10:32 | disposition home or self-care (01) ==
LOC: INF 08:01
PROVIDERS: PCP Internal Medicine Adolescent Medicine; Visit Provider Internal Medicine Medical Oncology
DX: D46.9 Myelodysplastic syndrome, unspecified (principal)
CPT/HCPCS: 96413; J0894

== ENCOUNTER 2021-06-22 07:54 | Outpatient (CLI) | payer MEDICARE, MEDICAID, SELFPAY ==
[2021-06-22 08:14] VITALS: BP 147/72; PULSE 84; RESP 17; TEMP 37; O2SAT 97
[2021-06-22 08:40] VITALS: BP 123/69; PULSE 82
[2021-06-22 08:55] VITALS: BP 136/71; PULSE 81
[2021-06-22 09:10] VITALS: BP 147/83; PULSE 79
[2021-06-22 09:25] VITALS: BP 142/75; PULSE 76
[2021-06-22 10:10] VITALS: BP 146/81; PULSE 81; RESP 17; TEMP 36.9; O2SAT 98
== END 2021-06-22 10:13 | disposition home or self-care (01) ==
LOC: INF 07:55
PROVIDERS: PCP Internal Medicine Adolescent Medicine; Visit Provider Internal Medicine Medical Oncology
DX: D46.9 Myelodysplastic syndrome, unspecified (principal)
CPT/HCPCS: 96413; J0894

== ENCOUNTER 2021-07-13 08:01 | Outpatient (CLI) | payer MEDICARE, MEDICAID, SELFPAY ==
[2021-07-13 08:19] VITALS: BMI 32.3
[2021-07-13 08:42] LABS: Basophils # 0.1 K/mm3 (0-0.2); Basophils % 2.8 % (0.1-2.0); Eosinophils # 0.3 K/mm3 (0.0-0.4); Eosinophils % 14.1 % (0.1-12.0); Hematocrit 41.8 % (42.0-52.0); Hemoglobin 13.5 g/dL (14.1-18.0); Lymphocytes # 1.1 K/mm3 (0.7-4.5); Mean Corpuscular HGB Conc 32.3 g/dL (31.8-35.4); Mean Corpuscular Hemoglobin 33.7 pg (27.0-31.2); Mean Corpuscular Volume 104.3 fl (80-94); Mean Platelet Volume 8.9 fl (7.4-10.4); Monocytes # 0.1 K/mm3 (0.1-1.0); Monocytes % 5.9 % (1.7-9.3); Neutrophils # 0.7 K/mm3 (1.8-7.8); Neutrophils % 30.2 % (37.0-80.0); Platelet Count 119 K/mm3 (142-424); Red Blood Count 4.01 M/mm3 (4.60-6.20); Red Cell Distribution Width 15.6 % (11.5-17.5); White Blood Count 2.3 K/mm3 (4.8-10.8)
[2021-07-13 08:43] LABS: Chloride 106 mmol/L (98-107); Potassium 4.2 mmoL/L (3.5-5.1); Sodium 139 mmol/L (136-145)
[2021-07-13 08:46] LABS: Alanine Aminotransferase 16 U/L (12-78); Albumin Level 3.8 g/dl (3.5-5.0); Albumin/Globulin Ratio 1.4 (1.1-1.8); Alkaline Phosphatase 74 U/L (38-126); Anion Gap 8.2 mEq/L (5-15); Aspartate Amino Transferase 31 U/L (17-59); Bilirubin,Total 0.4 mg/dl (0.2-1.3); Blood Urea Nitrogen 20 mg/dl (9-20); Carbon Dioxide 29 mmol/L (22.0-30.0); Creatinine Clearance Estimated 87 mL/min (50-200); Estimated Glomerular Filt Rate 65 ml/min (>60); GFR (African American) 79 ML/MIN (>60); Globulin 2.8 g/dL (1.3-3.2); Total Protein,Serum 6.6 g/dl (6.3-8.2)
[2021-07-13 08:47] LABS: Calcium 9.3 mg/dl (8.4-10.2); Glucose 98 mg/dl (74-100)
--- NOTE | 2021-07-13 09:27 | PC.NURSE ---
0815 - BLOOD DRAWN USING BUTTERFLY NEEDLE TO CHECK LABS PRIOR TO DR HERRERA APPOINTMENT.
== END 2021-07-13 08:25 | disposition home or self-care (01) ==
LOC: INF 08:02
PROVIDERS: PCP Internal Medicine Adolescent Medicine; Visit Provider Internal Medicine Medical Oncology
DX: D46.9 Myelodysplastic syndrome, unspecified (principal)
CPT/HCPCS: 80053; 85025

== ENCOUNTER 2021-07-16 08:00 | Outpatient (CLI) | payer MEDICARE, MEDICAID, SELFPAY ==
[2021-07-16 08:45] VITALS: BP 126/73; PULSE 74; RESP 18; TEMP 36.4; O2SAT 96
[2021-07-16 09:09] VITALS: BP 141/70; PULSE 71; RESP 20; TEMP 36.6; O2SAT 96
[2021-07-16 09:39] VITALS: BP 139/75; PULSE 76; RESP 20; O2SAT 96
[2021-07-16 10:20] VITALS: BP 156/79; PULSE 84; RESP 20; O2SAT 95
== END 2021-07-16 10:20 | disposition home or self-care (01) ==
LOC: INF 08:01
PROVIDERS: PCP Internal Medicine Adolescent Medicine; Visit Provider Internal Medicine Medical Oncology
DX: D46.9 Myelodysplastic syndrome, unspecified (principal)
CPT/HCPCS: 96413; J0894

== ENCOUNTER 2021-07-17 08:04 | Outpatient (CLI) | payer MEDICARE, MEDICAID, SELFPAY ==
[2021-07-17 08:15] VITALS: BP 140/76; PULSE 81; RESP 20; TEMP 36.7; O2SAT 97
[2021-07-17 08:41] VITALS: BP 158/75; PULSE 76; RESP 18; O2SAT 98
[2021-07-17 09:15] VITALS: BP 156/79; PULSE 78; RESP 18; O2SAT 97
[2021-07-17 09:45] VITALS: BP 149/76; PULSE 72; RESP 18; O2SAT 97
[2021-07-17 10:04] VITALS: BP 151/88; PULSE 78; RESP 18; O2SAT 97
== END 2021-07-17 10:08 | disposition home or self-care (01) ==
LOC: INF 08:05
PROVIDERS: PCP Internal Medicine Adolescent Medicine; Visit Provider Internal Medicine Medical Oncology
DX: D46.9 Myelodysplastic syndrome, unspecified (principal)
CPT/HCPCS: 96413; J0894

== ENCOUNTER 2021-07-18 08:04 | Outpatient (CLI) | payer MEDICARE, MEDICAID, SELFPAY ==
[2021-07-18 08:14] VITALS: BP 133/72; PULSE 76; RESP 18; TEMP 36.7; O2SAT 97
[2021-07-18 08:45] VITALS: BP 114/85; PULSE 78; RESP 18; O2SAT 97
[2021-07-18 09:15] VITALS: BP 137/75; PULSE 72; RESP 18; O2SAT 98
[2021-07-18 09:45] VITALS: BP 145/79; PULSE 72; RESP 18; O2SAT 97
[2021-07-18 10:04] VITALS: BP 140/76; PULSE 78; RESP 18; O2SAT 97
== END 2021-07-18 10:04 | disposition home or self-care (01) ==
PROVIDERS: PCP Internal Medicine Adolescent Medicine; Visit Provider Internal Medicine Medical Oncology
DX: Z51.11 Encounter for antineoplastic chemotherapy (principal); D46.9 Myelodysplastic syndrome, unspecified
CPT/HCPCS: 96413; J0894

== ENCOUNTER 2021-07-19 08:09 | Outpatient (CLI) | payer MEDICARE, MEDICAID, SELFPAY ==
[2021-07-19 09:00] VITALS: BP 112/63; PULSE 82; RESP 18; TEMP 36.5; O2SAT 97
[2021-07-19 09:15] VITALS: BP 124/71; PULSE 72; RESP 18
[2021-07-19 09:30] VITALS: BP 126/64; PULSE 71; RESP 18
[2021-07-19 09:45] VITALS: BP 129/69; PULSE 68; RESP 16
[2021-07-19 10:00] VITALS: BP 146/74; PULSE 70; RESP 16
[2021-07-19 10:10] VITALS: BP 151/74; PULSE 67; RESP 16
== END 2021-07-19 10:30 | disposition home or self-care (01) ==
LOC: INF 08:10
PROVIDERS: PCP Internal Medicine Adolescent Medicine; Visit Provider Internal Medicine Medical Oncology
DX: Z51.11 Encounter for antineoplastic chemotherapy (principal); D46.9 Myelodysplastic syndrome, unspecified
CPT/HCPCS: 96413; J0894

== ENCOUNTER 2021-07-20 08:07 | Outpatient (CLI) | payer MEDICARE, MEDICAID, SELFPAY ==
[2021-07-20 09:00] VITALS: BP 134/73; PULSE 77; RESP 18; TEMP 36.4; O2SAT 97
[2021-07-20 09:15] VITALS: BP 137/68; PULSE 70; RESP 16
[2021-07-20 09:30] VITALS: BP 139/72; PULSE 69; RESP 16
[2021-07-20 09:45] VITALS: BP 145/76; PULSE 71; RESP 16
[2021-07-20 10:00] VITALS: BP 150/75; PULSE 70; RESP 16
== END 2021-07-20 10:15 | disposition home or self-care (01) ==
LOC: INF 08:08
PROVIDERS: PCP Internal Medicine Adolescent Medicine; Visit Provider Internal Medicine Medical Oncology
DX: Z51.11 Encounter for antineoplastic chemotherapy (principal); D46.9 Myelodysplastic syndrome, unspecified
CPT/HCPCS: 96413; J0894

== ENCOUNTER 2021-08-09 08:30 | Outpatient (CLI) | payer MEDICARE, MEDICAID, SELFPAY ==
[2021-08-09 08:35] VITALS: BMI 32.9
[2021-08-09 08:56] LABS: Basophils # 0.1 K/mm3 (0-0.2); Basophils % 2.8 % (0.1-2.0); Eosinophils # 0.4 K/mm3 (0.0-0.4); Eosinophils % 15.4 % (0.1-12.0); Hematocrit 44.4 % (42.0-52.0); Hemoglobin 14.1 g/dL (14.1-18.0); Lymphocytes # 1.2 K/mm3 (0.7-4.5); Lymphocytes % 49.5 % (10-50); Mean Corpuscular HGB Conc 31.8 g/dL (31.8-35.4); Mean Corpuscular Hemoglobin 33.6 pg (27.0-31.2); Mean Corpuscular Volume 105.5 fl (80-94); Mean Platelet Volume 8.8 fl (7.4-10.4); Monocytes # 0.1 K/mm3 (0.1-1.0); Monocytes % 4.2 % (1.7-9.3); Neutrophils # 0.7 K/mm3 (1.8-7.8); Neutrophils % 28.2 % (37.0-80.0); Platelet Count 114 K/mm3 (142-424); Red Cell Distribution Width 15.8 % (11.5-17.5); White Blood Count 2.5 K/mm3 (4.8-10.8)
[2021-08-09 09:07] LABS: Chloride 106 mmol/L (98-107); Potassium 4.7 mmoL/L (3.5-5.1); Sodium 140 mmol/L (136-145)
[2021-08-09 09:10] LABS: Alanine Aminotransferase 15 U/L (12-78); Albumin Level 3.9 g/dl (3.5-5.0); Albumin/Globulin Ratio 1.3 (1.1-1.8); Alkaline Phosphatase 76 U/L (38-126); Anion Gap 11.7 mEq/L (5-15); Aspartate Amino Transferase 25 U/L (17-59); Bilirubin,Total 0.6 mg/dl (0.2-1.3); Blood Urea Nitrogen 20 mg/dl (9-20); Carbon Dioxide 27 mmol/L (22.0-30.0); Creatinine Clearance Estimated 98 mL/min (50-200); Estimated Glomerular Filt Rate 82 ml/min (>60); GFR (African American) 99 ML/MIN (>60); Globulin 2.9 g/dL (1.3-3.2); Total Protein,Serum 6.8 g/dl (6.3-8.2)
[2021-08-09 09:11] LABS: Calcium 9.3 mg/dl (8.4-10.2); Glucose 104 mg/dl (74-100)
== END 2021-08-09 08:39 | disposition home or self-care (01) ==
LOC: INF 08:31
PROVIDERS: PCP Internal Medicine Adolescent Medicine; Visit Provider Internal Medicine Medical Oncology
DX: D46.9 Myelodysplastic syndrome, unspecified (principal)
CPT/HCPCS: 80053; 85025

== ENCOUNTER 2021-08-13 08:10 | Outpatient (CLI) | payer MEDICARE, MEDICAID, SELFPAY ==
[2021-08-13 08:31] VITALS: BP 138/69; PULSE 81; RESP 18; TEMP 36.6; O2SAT 98
[2021-08-13 08:59] VITALS: BP 124/73; PULSE 70; RESP 18; O2SAT 98
[2021-08-13 09:29] VITALS: BP 141/76; PULSE 84; RESP 18; O2SAT 97
[2021-08-13 10:15] VITALS: BP 155/71; PULSE 80; RESP 18; O2SAT 97
== END 2021-08-13 10:15 | disposition home or self-care (01) ==
LOC: INF 08:12
PROVIDERS: PCP Internal Medicine Adolescent Medicine; Visit Provider Internal Medicine Medical Oncology
DX: D46.9 Myelodysplastic syndrome, unspecified (principal)
CPT/HCPCS: 96413; J0894

== ENCOUNTER 2021-08-14 07:56 | Outpatient (CLI) | payer MEDICARE, MEDICAID, SELFPAY ==
[2021-08-14 08:44] VITALS: BP 139/81; PULSE 70; RESP 18; O2SAT 98
[2021-08-14 09:00] VITALS: BP 136/76; PULSE 64; RESP 18
[2021-08-14 09:15] VITALS: BP 159/77; PULSE 64; RESP 18
[2021-08-14 09:30] VITALS: BP 170/74; PULSE 62; RESP 18
[2021-08-14 09:45] VITALS: BP 155/80; PULSE 67; RESP 18
[2021-08-14 10:00] VITALS: BP 161/62; PULSE 67; RESP 18
== END 2021-08-14 10:00 | disposition home or self-care (01) ==
LOC: INF 07:58
PROVIDERS: PCP Internal Medicine Adolescent Medicine; Visit Provider Internal Medicine Medical Oncology
DX: D46.9 Myelodysplastic syndrome, unspecified (principal)
CPT/HCPCS: 96413; J0894

== ENCOUNTER 2021-08-15 08:07 | Outpatient (CLI) | payer MEDICARE, MEDICAID, SELFPAY ==
[2021-08-15 08:25] VITALS: BP 114/62; PULSE 90; RESP 18; TEMP 36.7; O2SAT 98
[2021-08-15 08:55] VITALS: BP 144/67; PULSE 73; RESP 18; O2SAT 98
[2021-08-15 09:02] VITALS: BMI 32.9
[2021-08-15 09:25] VITALS: BP 140/66; PULSE 76; RESP 18; O2SAT 97
[2021-08-15 10:10] VITALS: BP 142/73; PULSE 76; RESP 18; O2SAT 98
== END 2021-08-15 10:10 | disposition home or self-care (01) ==
LOC: INF 08:08
PROVIDERS: PCP Internal Medicine Adolescent Medicine; Visit Provider Internal Medicine Medical Oncology
DX: D46.9 Myelodysplastic syndrome, unspecified (principal)
CPT/HCPCS: 96413; J0894

== ENCOUNTER 2021-08-16 08:11 | Outpatient (CLI) | payer MEDICARE, MEDICAID, SELFPAY ==
[2021-08-16 08:47] VITALS: BP 137/79; PULSE 75; RESP 18; TEMP 36.9; O2SAT 98
[2021-08-16 10:11] VITALS: BP 156/77; PULSE 68; RESP 18
== END 2021-08-16 10:11 | disposition home or self-care (01) ==
LOC: INF 08:12
PROVIDERS: PCP Internal Medicine Adolescent Medicine; Visit Provider Internal Medicine Medical Oncology
DX: D46.9 Myelodysplastic syndrome, unspecified (principal)
CPT/HCPCS: 96413; J0894

== ENCOUNTER 2021-08-17 08:06 | Outpatient (CLI) | payer MEDICARE, MEDICAID, SELFPAY ==
[2021-08-17] VITALS (8 sets, daily range): BP systolic 137–170; BP diastolic 66–95; PULSE 64–74; RESP 17; TEMP 36.7–36.8; O2SAT 96–97
== END 2021-08-17 10:33 | disposition home or self-care (01) ==
LOC: INF 08:07
PROVIDERS: PCP Internal Medicine Adolescent Medicine; Visit Provider Internal Medicine Medical Oncology
DX: D46.9 Myelodysplastic syndrome, unspecified (principal)
CPT/HCPCS: 96413; J0894

== ENCOUNTER 2021-09-03 08:47 | Outpatient (CLI) | payer MEDICARE, MEDICAID, SELFPAY ==
[2021-09-03 08:55] VITALS: BMI 32.9
[2021-09-03 09:12] LABS: Basophils % 0.9 % (0.1-2.0); Eosinophils # 0.5 K/mm3 (0.0-0.4); Eosinophils % 16.1 % (0.1-12.0); Hematocrit 43.9 % (42.0-52.0); Hemoglobin 14.3 g/dL (14.1-18.0); Lymphocytes # 1.5 K/mm3 (0.7-4.5); Lymphocytes % 48.1 % (10-50); Mean Corpuscular HGB Conc 32.7 g/dL (31.8-35.4); Mean Corpuscular Hemoglobin 33.3 pg (27.0-31.2); Mean Corpuscular Volume 101.9 fl (80-94); Mean Platelet Volume 9.4 fl (7.4-10.4); Monocytes # 0.2 K/mm3 (0.1-1.0); Monocytes % 5.3 % (1.7-9.3); Neutrophils # 0.9 K/mm3 (1.8-7.8); Neutrophils % 29.7 % (37.0-80.0); Platelet Count 103 K/mm3 (142-424); Red Blood Count 4.31 M/mm3 (4.60-6.20); Red Cell Distribution Width 15.4 % (11.5-17.5); White Blood Count 3.1 K/mm3 (4.8-10.8)
[2021-09-03 09:13] LABS: Chloride 105 mmol/L (98-107); Potassium 4.1 mmoL/L (3.5-5.1); Sodium 141 mmol/L (136-145)
[2021-09-03 09:16] LABS: Alanine Aminotransferase 13 U/L (12-78); Albumin Level 4.3 g/dl (3.5-5.0); Albumin/Globulin Ratio 1.5 (1.1-1.8); Alkaline Phosphatase 77 U/L (38-126); Anion Gap 11.1 mEq/L (5-15); Aspartate Amino Transferase 29 U/L (17-59); Bilirubin,Total 0.6 mg/dl (0.2-1.3); Blood Urea Nitrogen 19 mg/dl (9-20); Carbon Dioxide 29 mmol/L (22.0-30.0); Creatinine Clearance Estimated 98 mL/min (50-200); Estimated Glomerular Filt Rate 73 ml/min (>60); GFR (African American) 88 ML/MIN (>60); Globulin 2.8 g/dL (1.3-3.2); Total Protein,Serum 7.1 g/dl (6.3-8.2)
[2021-09-03 09:17] LABS: Calcium 9.5 mg/dl (8.4-10.2); Glucose 107 mg/dl (74-100)
== END 2021-09-03 09:01 | disposition home or self-care (01) ==
LOC: INF 08:48
PROVIDERS: PCP Internal Medicine Adolescent Medicine; Visit Provider Internal Medicine Medical Oncology
DX: D46.9 Myelodysplastic syndrome, unspecified (principal)
CPT/HCPCS: 80053; 85025

== ENCOUNTER 2021-09-10 07:52 | Outpatient (CLI) | payer MEDICARE, MEDICAID, SELFPAY ==
[2021-09-10 08:50] VITALS: BP 151/77; PULSE 72; RESP 18; O2SAT 98
[2021-09-10 09:15] VITALS: BP 155/86; PULSE 69; RESP 18
[2021-09-10 09:30] VITALS: BP 180/84; PULSE 64; RESP 18
[2021-09-10 09:45] VITALS: BP 174/86; PULSE 70; RESP 18
[2021-09-10 10:00] VITALS: BP 146/81; PULSE 68; RESP 18
[2021-09-10 10:10] VITALS: BP 153/76; PULSE 72; RESP 18
== END 2021-09-10 10:10 | disposition home or self-care (01) ==
LOC: INF 07:53
PROVIDERS: PCP Internal Medicine Adolescent Medicine; Visit Provider Internal Medicine Medical Oncology
DX: Z51.11 Encounter for antineoplastic chemotherapy (principal); D46.9 Myelodysplastic syndrome, unspecified
CPT/HCPCS: 96413; J0894

== ENCOUNTER 2021-09-11 07:54 | Outpatient (CLI) | payer MEDICARE, MEDICAID, SELFPAY ==
[2021-09-11 08:11] VITALS: BP 155/71; PULSE 78; RESP 18; TEMP 36.3; O2SAT 98
[2021-09-11 08:43] VITALS: BP 149/80; PULSE 77; RESP 18; O2SAT 98
[2021-09-11 09:13] VITALS: BP 150/77; PULSE 74; RESP 18; O2SAT 97
[2021-09-11 09:43] VITALS: BP 148/76; PULSE 76; RESP 18; O2SAT 98
[2021-09-11 10:01] VITALS: BP 151/72; PULSE 75; RESP 18; O2SAT 98
== END 2021-09-11 10:01 | disposition home or self-care (01) ==
LOC: INF 07:55
PROVIDERS: PCP Internal Medicine Adolescent Medicine; Visit Provider Internal Medicine Medical Oncology
DX: Z51.11 Encounter for antineoplastic chemotherapy (principal); D46.9 Myelodysplastic syndrome, unspecified
CPT/HCPCS: 96413; J0894

== ENCOUNTER 2021-09-12 07:53 | Outpatient (CLI) | payer MEDICARE, MEDICAID, SELFPAY ==
[2021-09-12 08:50] VITALS: BP 115/65; PULSE 73; RESP 18; TEMP 36.4; O2SAT 98
[2021-09-12 09:05] VITALS: BP 110/59; PULSE 72; RESP 18
[2021-09-12 09:20] VITALS: BP 128/65; PULSE 64; RESP 16
[2021-09-12 09:35] VITALS: BP 113/66; PULSE 70; RESP 16
[2021-09-12 09:50] VITALS: BP 127/67; PULSE 61; RESP 16
[2021-09-12 09:55] VITALS: BP 132/66; PULSE 63; RESP 16
== END 2021-09-12 10:10 | disposition home or self-care (01) ==
LOC: INF 07:55
PROVIDERS: PCP Internal Medicine Adolescent Medicine; Visit Provider Internal Medicine Medical Oncology
DX: Z51.11 Encounter for antineoplastic chemotherapy (principal); D46.9 Myelodysplastic syndrome, unspecified
CPT/HCPCS: 96413; J0894

== ENCOUNTER 2021-09-13 07:52 | Outpatient (CLI) | payer MEDICARE, MEDICAID, SELFPAY ==
[2021-09-13 08:50] VITALS: BP 129/63; PULSE 65; RESP 18; TEMP 36.8; O2SAT 98
[2021-09-13 09:10] VITALS: BP 112/65; PULSE 74; RESP 18
[2021-09-13 09:25] VITALS: BP 129/63; PULSE 65; RESP 18
[2021-09-13 09:40] VITALS: BP 138/60; PULSE 61; RESP 18
[2021-09-13 09:55] VITALS: BP 141/62; PULSE 61; RESP 18
[2021-09-13 10:20] VITALS: BP 114/62; PULSE 66; RESP 18
== END 2021-09-13 10:20 | disposition home or self-care (01) ==
LOC: INF 07:53
PROVIDERS: PCP Internal Medicine Adolescent Medicine; Visit Provider Internal Medicine Medical Oncology
DX: Z51.11 Encounter for antineoplastic chemotherapy (principal); D46.9 Myelodysplastic syndrome, unspecified
CPT/HCPCS: 96413; J0894

== ENCOUNTER 2021-09-14 07:50 | Outpatient (CLI) | payer MEDICARE, MEDICAID, SELFPAY ==
[2021-09-14 08:55] VITALS: BP 100/55; PULSE 69; RESP 17; TEMP 36.6; O2SAT 96
[2021-09-14 09:15] VITALS: BP 108/58; PULSE 69
[2021-09-14 09:30] VITALS: BP 114/66; PULSE 68
[2021-09-14 09:45] VITALS: BP 140/68; PULSE 65
[2021-09-14 10:00] VITALS: BP 142/62; PULSE 60
[2021-09-14 10:10] VITALS: BP 140/69; PULSE 62; RESP 17; O2SAT 98
== END 2021-09-14 10:17 | disposition home or self-care (01) ==
LOC: INF 07:51
PROVIDERS: PCP Internal Medicine Adolescent Medicine; Visit Provider Internal Medicine Medical Oncology
DX: Z51.11 Encounter for antineoplastic chemotherapy (principal); D46.9 Myelodysplastic syndrome, unspecified
CPT/HCPCS: 96413; J0894

== ENCOUNTER 2021-10-04 08:52 | Outpatient (CLI) | payer MEDICARE, MEDICAID, SELFPAY ==
[2021-10-04 08:59] VITALS: BMI 31.8
--- NOTE | 2021-10-04 09:03 | PC.NURSE ---
0903-pt here for peripheral stick for labs and then appointment with oncologist.
[2021-10-04 09:22] LABS: Basophils # 0.2 K/mm3 (0-0.2); Basophils % 6.5 % (0.1-2.0); Chloride 105 mmol/L (98-107); Eosinophils # 0.5 K/mm3 (0.0-0.4); Hematocrit 44.7 % (42.0-52.0); Hemoglobin 14.4 g/dL (14.1-18.0); Lymphocytes # 1.4 K/mm3 (0.7-4.5); Lymphocytes % 57.6 % (10-50); Mean Corpuscular HGB Conc 32.3 g/dL (31.8-35.4); Mean Corpuscular Hemoglobin 33.5 pg (27.0-31.2); Mean Corpuscular Volume 103.6 fl (80-94); Mean Platelet Volume 9.3 fl (7.4-10.4); Monocytes # 0.1 K/mm3 (0.1-1.0); Monocytes % 2.5 % (1.7-9.3); Neutrophils # 0.5 K/mm3 (1.8-7.8); Neutrophils % 19.8 % (37.0-80.0); Platelet Count 117 K/mm3 (142-424); Red Blood Count 4.31 M/mm3 (4.60-6.20); Red Cell Distribution Width 15.9 % (11.5-17.5); White Blood Count 2.5 K/mm3 (4.8-10.8)
[2021-10-04 09:23] LABS: Potassium 3.8 mmoL/L (3.5-5.1); Sodium 141 mmol/L (136-145)
[2021-10-04 09:25] LABS: Alanine Aminotransferase 19 U/L (12-78); Alkaline Phosphatase 63 U/L (38-126); Anion Gap 10.8 mEq/L (5-15); Aspartate Amino Transferase 30 U/L (17-59); Bilirubin,Total 0.6 mg/dl (0.2-1.3); Blood Urea Nitrogen 25 mg/dl (9-20); Carbon Dioxide 29 mmol/L (22.0-30.0); Creatinine Clearance Estimated 79 mL/min (50-200); Estimated Glomerular Filt Rate 59 ml/min (>60); GFR (African American) 71 ML/MIN (>60)
[2021-10-04 09:26] LABS: Albumin Level 4.3 g/dl (3.5-5.0); Albumin/Globulin Ratio 1.5 (1.1-1.8); Calcium 9.5 mg/dl (8.4-10.2); Globulin 2.8 g/dL (1.3-3.2); Glucose 109 mg/dl (74-100); Total Protein,Serum 7.1 g/dl (6.3-8.2)
[2021-10-04 09:43] LABS: MANUAL DIFFERENTIAL MANUAL DIFFERENTIAL (MANUAL DIFF)
[2021-10-04 10:09] LABS: Eosinophils % 19 % (0-3); Lymphocytes % 58 % (10-50); Monocytes % 3 % (2-9); Neutrophils % 20 % (42-76); Total Cells Counted 100
[2021-10-04 10:10] LABS: Macrocytosis 1+; Platelet Estimate Slight Decrease
== END 2021-10-04 09:05 | disposition home or self-care (01) ==
LOC: INF 08:53
PROVIDERS: PCP Internal Medicine Adolescent Medicine; Visit Provider Internal Medicine Medical Oncology
DX: D46.9 Myelodysplastic syndrome, unspecified (principal)
CPT/HCPCS: 80053; 85007; 85025

== ENCOUNTER 2021-10-08 08:10 | Outpatient (CLI) | payer MEDICARE, MEDICAID, SELFPAY ==
[2021-10-08 08:23] VITALS: BP 124/69; PULSE 86; RESP 20; TEMP 36.6; O2SAT 96
[2021-10-08 08:52] VITALS: BP 130/69; PULSE 79; RESP 20; O2SAT 97
[2021-10-08 09:22] VITALS: BP 128/67; PULSE 84; RESP 20; O2SAT 97
[2021-10-08 10:00] VITALS: BP 141/72; PULSE 81; RESP 20; O2SAT 96
== END 2021-10-08 10:08 | disposition home or self-care (01) ==
LOC: INF 08:11
PROVIDERS: PCP Internal Medicine Adolescent Medicine; Visit Provider Internal Medicine Medical Oncology
DX: Z51.11 Encounter for antineoplastic chemotherapy (principal); D46.9 Myelodysplastic syndrome, unspecified
CPT/HCPCS: 96413; J0894

== ENCOUNTER 2021-10-09 08:13 | Outpatient (CLI) | payer MEDICARE, MEDICAID, SELFPAY ==
[2021-10-09 08:20] VITALS: BP 135/79; PULSE 80; RESP 18; TEMP 36.4; O2SAT 98
[2021-10-09 09:07] VITALS: BP 142/71; PULSE 77; RESP 18; O2SAT 98
[2021-10-09 09:37] VITALS: BP 152/79; PULSE 69; RESP 18; O2SAT 98
[2021-10-09 10:07] VITALS: BP 148/77; PULSE 71; RESP 18; O2SAT 97
[2021-10-09 10:22] VITALS: BP 136/76; PULSE 78; RESP 18; O2SAT 97
== END 2021-10-09 10:22 | disposition home or self-care (01) ==
LOC: INF 08:14
PROVIDERS: PCP Internal Medicine Adolescent Medicine; Visit Provider Internal Medicine Medical Oncology
DX: Z51.11 Encounter for antineoplastic chemotherapy (principal); D46.9 Myelodysplastic syndrome, unspecified
CPT/HCPCS: 96413; J0894

== ENCOUNTER 2021-10-10 08:07 | Outpatient (CLI) | payer MEDICARE, MEDICAID, SELFPAY ==
[2021-10-10 08:16] VITALS: BP 146/88; PULSE 75; RESP 18; TEMP 36.6; O2SAT 97
[2021-10-10 08:57] VITALS: BP 149/80; PULSE 68; RESP 18; O2SAT 97
[2021-10-10 09:27] VITALS: BP 151/79; PULSE 71; RESP 18; O2SAT 97
[2021-10-10 10:15] VITALS: BP 147/86; PULSE 70; RESP 18; O2SAT 98
== END 2021-10-10 10:15 | disposition home or self-care (01) ==
LOC: INF 08:08
PROVIDERS: PCP Internal Medicine Adolescent Medicine; Visit Provider Internal Medicine Medical Oncology
DX: Z51.11 Encounter for antineoplastic chemotherapy (principal); D46.9 Myelodysplastic syndrome, unspecified
CPT/HCPCS: 96413; J0894

== ENCOUNTER 2021-10-11 08:16 | Outpatient (CLI) | payer MEDICARE, MEDICAID, SELFPAY ==
[2021-10-11 08:23] VITALS: BP 127/73; PULSE 77; RESP 18; TEMP 36.7; O2SAT 98
[2021-10-11 08:56] VITALS: BP 129/74; PULSE 77; RESP 18; O2SAT 98
[2021-10-11 09:26] VITALS: BP 124/71; PULSE 78; RESP 18; O2SAT 98
[2021-10-11 10:08] VITALS: BP 127/79; PULSE 67; RESP 18; O2SAT 98
== END 2021-10-11 10:11 | disposition home or self-care (01) ==
LOC: INF 08:17
PROVIDERS: PCP Internal Medicine Adolescent Medicine; Visit Provider Internal Medicine Medical Oncology
DX: Z51.11 Encounter for antineoplastic chemotherapy (principal); D46.9 Myelodysplastic syndrome, unspecified
CPT/HCPCS: 96413; J0894

== ENCOUNTER → 2021-10-12 08:12 | Outpatient (CLI) | payer MEDICARE, MEDICAID, SELFPAY ==
[2021-10-12 09:15] VITALS: BP 148/77; PULSE 69; RESP 20; TEMP 36.7; O2SAT 95
[2021-10-12 09:45] VITALS: BP 112/74; PULSE 68; RESP 20; TEMP 36.9; O2SAT 95
[2021-10-12 10:31] VITALS: BP 145/75; PULSE 68; RESP 20; TEMP 36.9; O2SAT 95
--- NOTE | 2021-10-16 15:15 | DIET.NUTRFU ---
RD received consult s/p chemo infusion, he was unavailable. Left contact information with
== END ==
PROVIDERS: PCP Internal Medicine Adolescent Medicine; Visit Provider Internal Medicine Medical Oncology
DX: Z51.11 Encounter for antineoplastic chemotherapy (principal); D46.9 Myelodysplastic syndrome, unspecified
CPT/HCPCS: 96413; J0894

== ENCOUNTER 2021-11-05 08:18 | Outpatient (CLI) | payer MEDICARE, MEDICAID, SELFPAY ==
[2021-11-05 08:26] VITALS: BMI 32.8
[2021-11-05 09:05] LABS: Basophils # 0.1 K/mm3 (0-0.2); Basophils % 3.7 % (0.1-2.0); Eosinophils # 0.3 K/mm3 (0.0-0.4); Eosinophils % 11.2 % (0.1-12.0); Hematocrit 45.3 % (42.0-52.0); Hemoglobin 14.6 g/dL (14.1-18.0); Lymphocytes # 1.4 K/mm3 (0.7-4.5); Lymphocytes % 49.7 % (10-50); Mean Corpuscular HGB Conc 32.3 g/dL (31.8-35.4); Mean Corpuscular Volume 105.5 fl (80-94); Mean Platelet Volume 9.3 fl (7.4-10.4); Monocytes # 0.1 K/mm3 (0.1-1.0); Monocytes % 5.2 % (1.7-9.3); Neutrophils # 0.8 K/mm3 (1.8-7.8); Neutrophils % 30.3 % (37.0-80.0); Platelet Count 177 K/mm3 (142-424); Red Cell Distribution Width 15.9 % (11.5-17.5); White Blood Count 2.7 K/mm3 (4.8-10.8)
[2021-11-05 09:15] LABS: Chloride 105 mmol/L (98-107)
[2021-11-05 09:16] LABS: Sodium 139 mmol/L (136-145)
[2021-11-05 09:18] LABS: Alanine Aminotransferase 23 U/L (12-78); Aspartate Amino Transferase 41 U/L (17-59); Bilirubin,Total 0.9 mg/dl (0.2-1.3); Blood Urea Nitrogen 23 mg/dl (9-20); Creatinine Clearance Estimated 98 mL/min (50-200); Estimated Glomerular Filt Rate 73 ml/min (>60); GFR (African American) 88 ML/MIN (>60)
[2021-11-05 09:19] LABS: Alkaline Phosphatase 56 U/L (38-126); Carbon Dioxide 26 mmol/L (22.0-30.0); Hemoglobin A1C 5.1 % (4.0-6.0)
[2021-11-05 09:24] LABS: Anion Gap 12.3 mEq/L (5-15); Potassium 4.3 mmoL/L (3.5-5.1)
[2021-11-05 09:27] LABS: Albumin Level 4.4 g/dl (3.5-5.0); Albumin/Globulin Ratio 1.5 (1.1-1.8); Calcium 9.1 mg/dl (8.4-10.2); Chol/HDL Ratio 3.6 (1-3.5); Cholesterol 160 mg/dl (140-200); Glucose 105 mg/dl (74-100); HDL Cholesterol 45 mg/dl (40-60); Total Protein,Serum 7.4 g/dl (6.3-8.2); Triglycerides 157 mg/dl (30-150); VLDL Cholesterol 31 mg/dL (0-40)
[2021-11-05 09:38] LABS: Direct LDL Cholesterol 86.97 mg/dL (100-129)
[2021-11-05 10:00] VITALS: BP 113/71; PULSE 74; RESP 18; TEMP 36.1; O2SAT 97
[2021-11-05 11:33] VITALS: BP 163/72; PULSE 70; RESP 18
== END 2021-11-05 11:33 | disposition home or self-care (01) ==
LOC: INF 08:20
PROVIDERS: Nurse Practitioner Family; PCP Internal Medicine Adolescent Medicine; Visit Provider Internal Medicine Medical Oncology
DX: Z51.11 Encounter for antineoplastic chemotherapy (principal); D46.9 Myelodysplastic syndrome, unspecified; R73.9 Hyperglycemia, unspecified; E78.2 Mixed hyperlipidemia
CPT/HCPCS: 80053; 80061; 83036; 85025; 96413; J0894

== ENCOUNTER 2021-11-06 08:01 | Outpatient (CLI) | payer MEDICARE, MEDICAID, SELFPAY ==
[2021-11-06 09:00] VITALS: BP 150/75; PULSE 71; RESP 18; TEMP 36.6; O2SAT 97
[2021-11-06 10:20] VITALS: BP 146/76; PULSE 69; RESP 18; O2SAT 96
== END 2021-11-06 10:20 | disposition home or self-care (01) ==
LOC: INF 08:02
PROVIDERS: PCP Internal Medicine Adolescent Medicine; Visit Provider Internal Medicine Medical Oncology
DX: Z51.11 Encounter for antineoplastic chemotherapy (principal); D46.9 Myelodysplastic syndrome, unspecified
CPT/HCPCS: 96413; J0894

== ENCOUNTER 2021-11-07 07:56 | Outpatient (CLI) | payer MEDICARE, MEDICAID, SELFPAY ==
[2021-11-07 08:16] VITALS: BP 111/64; PULSE 76; RESP 18; TEMP 36.4; O2SAT 96
[2021-11-07 08:53] VITALS: BP 110/74; PULSE 77; RESP 18; O2SAT 96
[2021-11-07 09:23] VITALS: BP 105/68; PULSE 79; RESP 18; O2SAT 97
[2021-11-07 09:53] VITALS: BP 109/65; PULSE 72; RESP 18; O2SAT 97
[2021-11-07 10:08] VITALS: BP 121/71; PULSE 74; RESP 18; O2SAT 97
== END 2021-11-07 10:10 | disposition home or self-care (01) ==
LOC: INF 07:56
PROVIDERS: PCP Internal Medicine Adolescent Medicine; Visit Provider Internal Medicine Medical Oncology
DX: Z51.11 Encounter for antineoplastic chemotherapy (principal); D46.9 Myelodysplastic syndrome, unspecified
CPT/HCPCS: 96413; J0894

== ENCOUNTER 2021-11-08 08:00 | Outpatient (CLI) | payer MEDICARE, MEDICAID, SELFPAY ==
[2021-11-08 08:50] VITALS: BP 97/58; PULSE 71; RESP 18; TEMP 36.7; O2SAT 97
[2021-11-08 10:10] VITALS: BP 133/65; PULSE 70; RESP 18
== END 2021-11-08 10:10 | disposition home or self-care (01) ==
LOC: INF 08:00
PROVIDERS: PCP Internal Medicine Adolescent Medicine; Visit Provider Internal Medicine Medical Oncology
DX: Z51.11 Encounter for antineoplastic chemotherapy (principal); D46.9 Myelodysplastic syndrome, unspecified
CPT/HCPCS: 96413; J0894

== ENCOUNTER 2021-11-09 08:13 | Outpatient (CLI) | payer MEDICARE, MEDICAID, SELFPAY ==
[2021-11-09 08:55] VITALS: BP 112/61; PULSE 78; RESP 16; O2SAT 97
[2021-11-09 09:10] VITALS: BP 125/71; PULSE 69; RESP 16
[2021-11-09 09:25] VITALS: BP 128/69; PULSE 65; RESP 16
[2021-11-09 09:40] VITALS: BP 121/52; PULSE 68; RESP 16
[2021-11-09 09:55] VITALS: BP 127/71; PULSE 66; RESP 16
== END 2021-11-09 10:22 | disposition home or self-care (01) ==
LOC: INF 08:14
PROVIDERS: PCP Internal Medicine Adolescent Medicine; Visit Provider Internal Medicine Medical Oncology
DX: Z51.11 Encounter for antineoplastic chemotherapy (principal); D46.9 Myelodysplastic syndrome, unspecified
CPT/HCPCS: 96413; J0894

== ENCOUNTER 2021-11-30 08:05 | Outpatient (CLI) | payer MEDICARE, MEDICAID, SELFPAY ==
--- NOTE | 2021-11-30 08:10 | XR_ITS ---
FINAL REPORT CLINICAL HISTORY: COUGH hx of luekemia FINDINGS: Two views of the chest were obtained. The heart size and pulmonary vascularity are within normal limits. The mediastinum is normal. There are mild left base opacity which may represent atelectasis or pneumonia. There is hyperinflation consistent with COPD. There is no pneumothorax. There are mild degenerative changes of the thoracic spine. IMPRESSION: Mild left lung base atelectasis or pneumonia. Reviewed, Interpreted and Dictated by Antoni Thomas III, MD Transcribed by Bonnie Joshi Authenticated by Antoni Thomas III, MD on 11/30/2021 08:44:34 AM [facility]
[2021-11-30 08:18] VITALS: BMI 32.5
--- NOTE | 2021-11-30 08:23 | PC.NURSE ---
0823-pt here for peripheral stick for lab draw for oncology appointment.
[2021-11-30 08:39] LABS: Basophils # 0.1 K/mm3 (0-0.2); Basophils % 2.8 % (0.1-2.0); Eosinophils # 0.1 K/mm3 (0.0-0.4); Hematocrit 40.4 % (42.0-52.0); Hemoglobin 13.4 g/dL (14.1-18.0); Lymphocytes # 1.4 K/mm3 (0.7-4.5); Mean Corpuscular HGB Conc 33.3 g/dL (31.8-35.4); Mean Corpuscular Hemoglobin 33.7 pg (27.0-31.2); Mean Corpuscular Volume 101.2 fl (80-94); Mean Platelet Volume 7.9 fl (7.4-10.4); Monocytes # 0.1 K/mm3 (0.1-1.0); Monocytes % 3.3 % (1.7-9.3); Neutrophils # 1.1 K/mm3 (1.8-7.8); Neutrophils % 39.8 % (37.0-80.0); Platelet Count 249 K/mm3 (142-424); Red Blood Count 3.99 M/mm3 (4.60-6.20); Red Cell Distribution Width 14.8 % (11.5-17.5); White Blood Count 2.8 K/mm3 (4.8-10.8)
[2021-11-30 08:43] LABS: Chloride 106 mmol/L (98-107)
[2021-11-30 08:44] LABS: Potassium 3.8 mmoL/L (3.5-5.1); Sodium 136 mmol/L (136-145)
[2021-11-30 08:46] LABS: Alanine Aminotransferase 25 U/L (12-78); Aspartate Amino Transferase 35 U/L (17-59); Blood Urea Nitrogen 17 mg/dl (9-20); Creatinine Clearance Estimated 88 mL/min (50-200); Estimated Glomerular Filt Rate 65 ml/min (>60); GFR (African American) 79 ML/MIN (>60)
[2021-11-30 08:47] LABS: Albumin Level 3.9 g/dl (3.5-5.0); Albumin/Globulin Ratio 1.1 (1.1-1.8); Alkaline Phosphatase 82 U/L (38-126); Anion Gap 9.8 mEq/L (5-15); Bilirubin,Total 0.7 mg/dl (0.2-1.3); Calcium 8.6 mg/dl (8.4-10.2); Carbon Dioxide 24 mmol/L (22.0-30.0); Globulin 3.4 g/dL (1.3-3.2); Glucose 98 mg/dl (74-100); Total Protein,Serum 7.3 g/dl (6.3-8.2)
== END 2021-11-30 08:30 | disposition home or self-care (01) ==
PROVIDERS: PCP Internal Medicine Adolescent Medicine; Visit Provider Internal Medicine Medical Oncology
DX: D46.9 Myelodysplastic syndrome, unspecified (principal)
CPT/HCPCS: 71046; 80053; 85025

== ENCOUNTER 2021-12-03 07:49 | Outpatient (CLI) | payer MEDICARE, MEDICAID, SELFPAY ==
[2021-12-03 08:10] VITALS: BP 108/71; PULSE 79; RESP 18; TEMP 36.6; O2SAT 97
[2021-12-03 08:55] VITALS: BP 129/71; PULSE 73; RESP 20; O2SAT 97
[2021-12-03 09:25] VITALS: BP 121/69; PULSE 78; RESP 20; O2SAT 98
[2021-12-03 10:10] VITALS: BP 134/71; PULSE 71; RESP 20; O2SAT 98
== END 2021-12-03 10:19 | disposition home or self-care (01) ==
LOC: INF 07:50
PROVIDERS: PCP Internal Medicine Adolescent Medicine; Visit Provider Internal Medicine Medical Oncology
DX: D46.9 Myelodysplastic syndrome, unspecified (principal)
CPT/HCPCS: 96413; J0894

== ENCOUNTER 2021-12-04 08:01 | Outpatient (CLI) | payer MEDICARE, MEDICAID, SELFPAY ==
[2021-12-04 08:45] VITALS: BP 107/79; PULSE 77; RESP 18; O2SAT 95
[2021-12-04 09:00] VITALS: BP 125/72; PULSE 72; RESP 18
[2021-12-04 09:15] VITALS: BP 127/79; PULSE 70; RESP 18
[2021-12-04 09:30] VITALS: BP 135/67; PULSE 69
[2021-12-04 09:45] VITALS: BP 141/68; PULSE 66
[2021-12-04 10:05] VITALS: BP 130/77; PULSE 66; RESP 18
== END 2021-12-04 10:05 | disposition home or self-care (01) ==
LOC: INF 08:02
PROVIDERS: PCP Internal Medicine Adolescent Medicine; Visit Provider Internal Medicine Medical Oncology
DX: D46.9 Myelodysplastic syndrome, unspecified (principal)
CPT/HCPCS: 96413; J0894

== ENCOUNTER 2021-12-05 08:02 | Outpatient (CLI) | payer MEDICARE, MEDICAID, SELFPAY ==
[2021-12-05 08:27] VITALS: BP 99/68; PULSE 84; RESP 18; TEMP 36.6; O2SAT 98
[2021-12-05 08:52] VITALS: BP 101/67; PULSE 81; RESP 18; O2SAT 98
[2021-12-05 09:22] VITALS: BP 119/62; PULSE 80; RESP 18; O2SAT 97
[2021-12-05 10:05] VITALS: BP 121/67; PULSE 83; RESP 18; O2SAT 97
== END 2021-12-05 10:05 | disposition home or self-care (01) ==
LOC: INF 08:03
PROVIDERS: PCP Internal Medicine Adolescent Medicine; Visit Provider Internal Medicine Medical Oncology
DX: Z51.11 Encounter for antineoplastic chemotherapy (principal); D46.9 Myelodysplastic syndrome, unspecified
CPT/HCPCS: 96413; J0894

== ENCOUNTER 2021-12-06 08:01 | Outpatient (CLI) | payer MEDICARE, MEDICAID, SELFPAY ==
[2021-12-06 08:45] VITALS: BP 117/58; PULSE 80; RESP 18; O2SAT 96
[2021-12-06 09:00] VITALS: BP 138/67; PULSE 71; RESP 18
[2021-12-06 09:15] VITALS: BP 140/70; PULSE 67; RESP 18
[2021-12-06 09:30] VITALS: BP 142/66; PULSE 68; RESP 18
[2021-12-06 09:56] VITALS: BP 156/73; PULSE 72; RESP 18
== END 2021-12-06 09:56 | disposition home or self-care (01) ==
LOC: INF 08:02
PROVIDERS: PCP Internal Medicine Adolescent Medicine; Visit Provider Internal Medicine Medical Oncology
DX: Z51.11 Encounter for antineoplastic chemotherapy (principal); D46.9 Myelodysplastic syndrome, unspecified
CPT/HCPCS: 96413; J0894

== ENCOUNTER 2021-12-07 08:05 | Outpatient (CLI) | payer MEDICARE, MEDICAID, SELFPAY ==
[2021-12-07 08:45] VITALS: BP 135/66; PULSE 79; RESP 18; TEMP 36.5; O2SAT 98
[2021-12-07 09:00] VITALS: BP 123/64; PULSE 71; RESP 16
[2021-12-07 09:15] VITALS: BP 129/62; PULSE 72; RESP 16
[2021-12-07 09:30] VITALS: BP 134/69; PULSE 68; RESP 16
[2021-12-07 09:45] VITALS: BP 147/83; PULSE 69; RESP 16
[2021-12-07 09:55] VITALS: BP 133/76; PULSE 74; RESP 16
== END 2021-12-07 10:15 | disposition home or self-care (01) ==
LOC: INF 08:07
PROVIDERS: PCP Internal Medicine Adolescent Medicine; Visit Provider Internal Medicine Medical Oncology
DX: Z51.11 Encounter for antineoplastic chemotherapy (principal); D46.9 Myelodysplastic syndrome, unspecified
CPT/HCPCS: 96413; J0894

== ENCOUNTER 2021-12-28 08:57 | Outpatient (CLI) | payer MEDICARE, MEDICAID, SELFPAY ==
[2021-12-28 09:00] VITALS: BMI 32.1
--- NOTE | 2021-12-28 09:00 | PC.NURSE ---
0900-pt here for lab draw via peripheral stick;pt to oncology appointment to see
[2021-12-28 09:17] LABS: Basophils # 0.1 K/mm3 (0-0.2); Basophils % 3.4 % (0.1-2.0); Eosinophils # 0.4 K/mm3 (0.0-0.4); Eosinophils % 15.8 % (0.1-12.0); Hematocrit 40.8 % (42.0-52.0); Hemoglobin 13.1 g/dL (14.1-18.0); Lymphocytes # 1.2 K/mm3 (0.7-4.5); Lymphocytes % 49.8 % (10-50); Mean Corpuscular HGB Conc 32.2 g/dL (31.8-35.4); Mean Corpuscular Hemoglobin 34.5 pg (27.0-31.2); Mean Corpuscular Volume 107.3 fl (80-94); Mean Platelet Volume 8.9 fl (7.4-10.4); Monocytes # 0.1 K/mm3 (0.1-1.0); Neutrophils # 0.6 K/mm3 (1.8-7.8); Platelet Count 153 K/mm3 (142-424); Red Cell Distribution Width 16.8 % (11.5-17.5); White Blood Count 2.4 K/mm3 (4.8-10.8)
[2021-12-28 09:21] LABS: Alanine Aminotransferase 19 U/L (12-78); Albumin/Globulin Ratio 1.4 (1.1-1.8); Alkaline Phosphatase 75 U/L (38-126); Anion Gap 10.3 mEq/L (5-15); Aspartate Amino Transferase 30 U/L (17-59); Bilirubin,Total 0.7 mg/dl (0.2-1.3); Blood Urea Nitrogen 23 mg/dl (9-20); Carbon Dioxide 26 mmol/L (22.0-30.0); Chloride 107 mmol/L (98-107); Creatinine Clearance Estimated 96 mL/min (50-200); Estimated Glomerular Filt Rate 73 ml/min (>60); GFR (African American) 88 ML/MIN (>60); Globulin 2.9 g/dL (1.3-3.2); Glucose 98 mg/dl (74-100); Potassium 4.3 mmoL/L (3.5-5.1); Sodium 139 mmol/L (136-145); Total Protein,Serum 6.9 g/dl (6.3-8.2)
== END 2021-12-28 09:10 | disposition home or self-care (01) ==
LOC: INF 08:58
PROVIDERS: PCP Internal Medicine Adolescent Medicine; Visit Provider Internal Medicine Medical Oncology
DX: D46.9 Myelodysplastic syndrome, unspecified (principal); Z45.2 Encounter for adjustment and management of vascular access device
CPT/HCPCS: 80053; 85025

== ENCOUNTER 2021-12-31 09:57 | Outpatient (CLI) | payer MEDICARE, MEDICAID, SELFPAY ==
[2021-12-31 10:08] VITALS: BP 128/75; PULSE 74; RESP 18; TEMP 36.4; O2SAT 98
[2021-12-31 10:44] VITALS: BP 144/72; PULSE 72; RESP 18; O2SAT 99
[2021-12-31 11:14] VITALS: BP 131/69; PULSE 73; RESP 18; O2SAT 98
[2021-12-31 12:00] VITALS: BP 131/60; PULSE 70; RESP 18; O2SAT 98
== END 2021-12-31 12:09 | disposition home or self-care (01) ==
LOC: INF 09:58
PROVIDERS: PCP Internal Medicine Adolescent Medicine; Visit Provider Internal Medicine Medical Oncology
DX: D46.9 Myelodysplastic syndrome, unspecified (principal)
CPT/HCPCS: 96413; J0894

== ENCOUNTER 2022-01-01 08:11 | Outpatient (CLI) | payer MEDICARE, MEDICAID, SELFPAY ==
[2022-01-01 08:15] VITALS: BP 130/66; PULSE 76; RESP 18; TEMP 36.6; O2SAT 99
[2022-01-01 08:48] VITALS: BP 151/69; PULSE 76; RESP 18; O2SAT 99
[2022-01-01 09:18] VITALS: BP 142/64; PULSE 74; RESP 18; O2SAT 98
[2022-01-01 10:00] VITALS: BP 139/86; PULSE 68; RESP 18; O2SAT 99
== END 2022-01-01 10:09 | disposition home or self-care (01) ==
LOC: INF 08:12
PROVIDERS: PCP Internal Medicine Adolescent Medicine; Visit Provider Internal Medicine Medical Oncology
DX: Z51.11 Encounter for antineoplastic chemotherapy (principal); D46.9 Myelodysplastic syndrome, unspecified
CPT/HCPCS: 96413; J0894

== ENCOUNTER 2022-01-02 08:00 | Outpatient (CLI) | payer MEDICARE, MEDICAID, SELFPAY ==
[2022-01-02 08:14] VITALS: BP 144/74; PULSE 84; RESP 18; TEMP 36.8; O2SAT 97
[2022-01-02 08:43] VITALS: BP 134/71; PULSE 77; RESP 18; O2SAT 98
[2022-01-02 09:13] VITALS: BP 132/76; PULSE 81; RESP 18; O2SAT 98
[2022-01-02 10:00] VITALS: BP 137/77; PULSE 74; RESP 18; O2SAT 98
== END 2022-01-02 10:05 | disposition home or self-care (01) ==
LOC: INF 08:00
PROVIDERS: PCP Internal Medicine Adolescent Medicine; Visit Provider Internal Medicine Medical Oncology
DX: D46.9 Myelodysplastic syndrome, unspecified (principal)
CPT/HCPCS: 96413; J0894

== ENCOUNTER 2022-01-03 07:57 | Outpatient (CLI) | payer MEDICARE, MEDICAID, SELFPAY ==
[2022-01-03 08:48] VITALS: BP 161/81; PULSE 61; RESP 18; TEMP 36.7; O2SAT 96
[2022-01-03 10:15] VITALS: BP 144/71; PULSE 68; RESP 18
== END 2022-01-03 10:15 | disposition home or self-care (01) ==
LOC: INF 07:58
PROVIDERS: PCP Internal Medicine Adolescent Medicine; Visit Provider Internal Medicine Medical Oncology
DX: Z51.11 Encounter for antineoplastic chemotherapy (principal); D46.9 Myelodysplastic syndrome, unspecified
CPT/HCPCS: 96413; J0894

== ENCOUNTER 2022-01-04 08:00 | Outpatient (CLI) | payer MEDICARE, MEDICAID, SELFPAY ==
[2022-01-04 08:45] VITALS: BP 145/69; PULSE 66; RESP 18; O2SAT 98
[2022-01-04 09:00] VITALS: BP 120/69; PULSE 69; RESP 16; O2SAT 98
[2022-01-04 09:15] VITALS: BP 127/64; PULSE 63; RESP 16
[2022-01-04 09:30] VITALS: BP 141/66; PULSE 64; RESP 16
[2022-01-04 09:45] VITALS: BP 148/75; PULSE 69; RESP 16
== END 2022-01-04 10:00 | disposition home or self-care (01) ==
LOC: INF 08:01
PROVIDERS: PCP Internal Medicine Adolescent Medicine; Visit Provider Internal Medicine Medical Oncology
DX: Z51.11 Encounter for antineoplastic chemotherapy (principal); D46.9 Myelodysplastic syndrome, unspecified
CPT/HCPCS: 96413; J0894

== ENCOUNTER 2022-01-25 09:02 | Outpatient (CLI) | payer MEDICARE, MEDICAID, SELFPAY ==
[2022-01-25 09:08] VITALS: BMI 32.4
--- NOTE | 2022-01-25 09:32 | PC.NURSE ---
Pt labs collected via peripheral site. Pt tolerated well, and will go to oncology appt.
[2022-01-25 09:41] LABS: Basophils # 0.1 K/mm3 (0-0.2); Basophils % 3.4 % (0.1-2.0); Eosinophils # 0.3 K/mm3 (0.0-0.4); Eosinophils % 13.9 % (0.1-12.0); Hematocrit 43.6 % (42.0-52.0); Lymphocytes # 1.2 K/mm3 (0.7-4.5); Lymphocytes % 49.3 % (10-50); Mean Corpuscular HGB Conc 32.2 g/dL (31.8-35.4); Mean Corpuscular Hemoglobin 34.7 pg (27.0-31.2); Mean Corpuscular Volume 107.8 fl (80-94); Mean Platelet Volume 8.6 fl (7.4-10.4); Monocytes # 0.1 K/mm3 (0.1-1.0); Monocytes % 4.8 % (1.7-9.3); Neutrophils # 0.7 K/mm3 (1.8-7.8); Neutrophils % 28.5 % (37.0-80.0); Platelet Count 133 K/mm3 (142-424); Red Blood Count 4.05 M/mm3 (4.60-6.20); Red Cell Distribution Width 16.3 % (11.5-17.5); White Blood Count 2.4 K/mm3 (4.8-10.8)
[2022-01-25 09:46] LABS: Chloride 107 mmol/L (98-107); Potassium 4.2 mmoL/L (3.5-5.1); Sodium 138 mmol/L (136-145)
[2022-01-25 09:48] LABS: Blood Urea Nitrogen 22 mg/dl (9-20); Creatinine Clearance Estimated 96 mL/min (50-200); Estimated Glomerular Filt Rate 73 ml/min (>60); GFR (African American) 88 ML/MIN (>60)
[2022-01-25 09:49] LABS: Alanine Aminotransferase 19 U/L (12-78); Albumin/Globulin Ratio 1.4 (1.1-1.8); Alkaline Phosphatase 79 U/L (38-126); Anion Gap 7.2 mEq/L (5-15); Aspartate Amino Transferase 32 U/L (17-59); Bilirubin,Total 0.7 mg/dl (0.2-1.3); Calcium 8.5 mg/dl (8.4-10.2); Carbon Dioxide 28 mmol/L (22.0-30.0); Globulin 2.8 g/dL (1.3-3.2); Glucose 89 mg/dl (74-100); Total Protein,Serum 6.8 g/dl (6.3-8.2)
== END 2022-01-25 09:34 | disposition home or self-care (01) ==
LOC: INF 09:03
PROVIDERS: PCP Internal Medicine Adolescent Medicine; Visit Provider Internal Medicine Medical Oncology
DX: D46.9 Myelodysplastic syndrome, unspecified (principal); Z45.2 Encounter for adjustment and management of vascular access device
CPT/HCPCS: 80053; 85025

== ENCOUNTER 2022-01-28 07:49 | Outpatient (CLI) | payer MEDICARE, MEDICAID, SELFPAY ==
[2022-01-28 08:50] VITALS: BP 136/66; PULSE 75; RESP 18; TEMP 36.6; O2SAT 96
[2022-01-28 09:15] VITALS: BP 157/75; PULSE 66; RESP 18
[2022-01-28 09:30] VITALS: BP 149/74; PULSE 64; RESP 18
[2022-01-28 09:45] VITALS: BP 141/74; PULSE 63; RESP 18
[2022-01-28 09:53] VITALS: BP 146/78; PULSE 65; RESP 18
[2022-01-28 10:05] VITALS: BP 152/76; PULSE 69; RESP 18
== END 2022-01-28 10:05 | disposition home or self-care (01) ==
LOC: INF 07:51
PROVIDERS: PCP Internal Medicine Adolescent Medicine; Visit Provider Internal Medicine Medical Oncology
DX: D46.9 Myelodysplastic syndrome, unspecified (principal)
CPT/HCPCS: 96413; J0894

== ENCOUNTER 2022-01-29 07:53 | Outpatient (CLI) | payer MEDICARE, MEDICAID, SELFPAY ==
[2022-01-29 08:10] VITALS: BP 133/71; PULSE 79; RESP 18; TEMP 36.7; O2SAT 98
[2022-01-29 08:43] VITALS: BP 140/74; PULSE 76; RESP 18; O2SAT 98
[2022-01-29 09:15] VITALS: BP 124/69; PULSE 78; RESP 18; O2SAT 97
[2022-01-29 09:55] VITALS: BP 118/63; PULSE 73; RESP 18; O2SAT 97
== END 2022-01-29 09:55 | disposition home or self-care (01) ==
LOC: INF 07:54
PROVIDERS: PCP Internal Medicine Adolescent Medicine; Visit Provider Internal Medicine Medical Oncology
DX: D46.9 Myelodysplastic syndrome, unspecified (principal)
CPT/HCPCS: 96413; J0894

== ENCOUNTER 2022-01-30 08:09 | Outpatient (CLI) | payer MEDICARE, MEDICAID, SELFPAY ==
[2022-01-30 08:15] VITALS: BP 133/82; PULSE 74; RESP 18; TEMP 36.4; O2SAT 99
[2022-01-30 08:54] VITALS: BP 142/86; PULSE 70; RESP 18; O2SAT 99
[2022-01-30 09:24] VITALS: BP 150/79; PULSE 73; RESP 18; O2SAT 99
[2022-01-30 10:07] VITALS: BP 157/84; PULSE 68; RESP 18; O2SAT 98
== END 2022-01-30 10:07 | disposition home or self-care (01) ==
LOC: INF 08:09
PROVIDERS: PCP Internal Medicine Adolescent Medicine; Visit Provider Internal Medicine Medical Oncology
DX: D46.9 Myelodysplastic syndrome, unspecified (principal); Z51.11 Encounter for antineoplastic chemotherapy
CPT/HCPCS: 96413; J0894

== ENCOUNTER 2022-01-31 07:56 | Outpatient (CLI) | payer MEDICARE, MEDICAID, SELFPAY ==
[2022-01-31 08:12] VITALS: BP 167/74; PULSE 68; RESP 18; TEMP 36.3; O2SAT 98
[2022-01-31 08:49] VITALS: BP 149/83; PULSE 74; RESP 18; O2SAT 98
[2022-01-31 09:19] VITALS: BP 146/87; PULSE 69; RESP 18; O2SAT 97
[2022-01-31 10:08] VITALS: BP 148/79; PULSE 74; RESP 18; O2SAT 98
== END 2022-01-31 10:08 | disposition home or self-care (01) ==
LOC: INF 07:57
PROVIDERS: PCP Internal Medicine Adolescent Medicine; Visit Provider Internal Medicine Medical Oncology
DX: D46.9 Myelodysplastic syndrome, unspecified (principal)
CPT/HCPCS: 96413; J0894

== ENCOUNTER 2022-02-01 07:58 | Outpatient (CLI) | payer MEDICARE, MEDICAID, SELFPAY ==
[2022-02-01 08:45] VITALS: BP 143/83; PULSE 79; RESP 18; O2SAT 98
[2022-02-01 09:00] VITALS: BP 174/78; PULSE 73; RESP 16; O2SAT 98
[2022-02-01 09:15] VITALS: BP 141/66; PULSE 75; RESP 16
[2022-02-01 09:30] VITALS: BP 166/81; PULSE 66; RESP 16
[2022-02-01 09:45] VITALS: BP 167/80; PULSE 64; RESP 16
== END 2022-02-01 10:10 | disposition home or self-care (01) ==
LOC: INF 07:58
PROVIDERS: PCP Internal Medicine Adolescent Medicine; Visit Provider Internal Medicine Medical Oncology
DX: D46.9 Myelodysplastic syndrome, unspecified (principal)
CPT/HCPCS: 96413; J0894

== ENCOUNTER 2022-02-22 09:09 | Outpatient (CLI) | payer MEDICARE, MEDICAID, SELFPAY ==
[2022-02-22 09:12] VITALS: BMI 32.6
--- NOTE | 2022-02-22 09:18 | PC.NURSE ---
0918-pt here for lab collection via peripheral stick; pt to oncology appointment.
[2022-02-22 09:33] LABS: Basophils # 0.2 K/mm3 (0-0.2); Basophils % 4.8 % (0.1-2.0); Eosinophils # 0.2 K/mm3 (0.0-0.4); Hematocrit 44.3 % (42.0-52.0); Hemoglobin 14.2 g/dL (14.1-18.0); Lymphocytes # 2.1 K/mm3 (0.7-4.5); Lymphocytes % 51.5 % (10-50); Mean Corpuscular HGB Conc 32.1 g/dL (31.8-35.4); Mean Corpuscular Hemoglobin 34.2 pg (27.0-31.2); Mean Corpuscular Volume 106.5 fl (80-94); Mean Platelet Volume 9.2 fl (7.4-10.4); Monocytes # 0.1 K/mm3 (0.1-1.0); Monocytes % 3.6 % (1.7-9.3); Neutrophils # 1.6 K/mm3 (1.8-7.8); Neutrophils % 39.8 % (37.0-80.0); Platelet Count 162 K/mm3 (142-424); Red Blood Count 4.16 M/mm3 (4.60-6.20); Red Cell Distribution Width 16.3 % (11.5-17.5)
[2022-02-22 09:36] LABS: Alanine Aminotransferase 21 U/L (12-78); Albumin Level 4.1 g/dl (3.5-5.0); Albumin/Globulin Ratio 1.5 (1.1-1.8); Alkaline Phosphatase 78 U/L (38-126); Anion Gap 8.4 mEq/L (5-15); Aspartate Amino Transferase 27 U/L (17-59); Bilirubin,Total 0.3 mg/dl (0.2-1.3); Blood Urea Nitrogen 26 mg/dl (9-20); Calcium 9.4 mg/dl (8.4-10.2); Carbon Dioxide 29 mmol/L (22.0-30.0); Chloride 106 mmol/L (98-107); Creatinine Clearance Estimated 97 mL/min (50-200); Estimated Glomerular Filt Rate 73 ml/min (>60); GFR (African American) 88 ML/MIN (>60); Globulin 2.7 g/dL (1.3-3.2); Glucose 88 mg/dl (74-100); MANUAL DIFFERENTIAL MANUAL DIFFERENTIAL (MANUAL DIFF); Potassium 3.4 mmoL/L (3.5-5.1); Sodium 140 mmol/L (136-145); Total Protein,Serum 6.8 g/dl (6.3-8.2)
[2022-02-22 10:31] LABS: Eosinophils % 2 % (0-3); Lymphocytes % 62 % (10-50); Macrocytosis 2+; Monocytes % 3 % (2-9); Neutrophils % 33 % (42-76); Platelet Estimate Normal; Total Cells Counted 100
== END 2022-02-22 09:18 | disposition home or self-care (01) ==
LOC: INF 09:10
PROVIDERS: PCP Internal Medicine Adolescent Medicine; Visit Provider Internal Medicine Medical Oncology
DX: D46.9 Myelodysplastic syndrome, unspecified (principal)
CPT/HCPCS: 36415; 80053; 85007; 85025

== ENCOUNTER 2022-02-25 08:14 | Outpatient (CLI) | payer MEDICARE, MEDICAID, SELFPAY ==
[2022-02-25 08:29] VITALS: BP 122/73; PULSE 76; RESP 18; TEMP 36.4; O2SAT 99
[2022-02-25 09:07] VITALS: BP 121/74; PULSE 78; RESP 18; O2SAT 98
[2022-02-25 09:37] VITALS: BP 131/78; PULSE 71; RESP 18; O2SAT 98
[2022-02-25 10:25] VITALS: BP 146/72; PULSE 78; RESP 18; O2SAT 99
== END 2022-02-25 10:25 | disposition home or self-care (01) ==
LOC: INF 08:15
PROVIDERS: PCP Internal Medicine Adolescent Medicine; Visit Provider Internal Medicine Medical Oncology
DX: Z51.11 Encounter for antineoplastic chemotherapy (principal); D46.9 Myelodysplastic syndrome, unspecified
CPT/HCPCS: 96413; J0894

== ENCOUNTER 2022-02-26 08:01 | Outpatient (CLI) | payer MEDICARE, MEDICAID, SELFPAY ==
[2022-02-26 08:54] VITALS: BP 139/73; PULSE 69; RESP 18; TEMP 36.9; O2SAT 98
[2022-02-26 09:25] VITALS: BP 139/72; PULSE 72; RESP 20; TEMP 36.9; O2SAT 95
[2022-02-26 10:25] VITALS: BP 148/68; PULSE 69; RESP 20; TEMP 36.9; O2SAT 95
== END 2022-02-26 10:30 | disposition home or self-care (01) ==
LOC: INF 08:02
PROVIDERS: PCP Internal Medicine Adolescent Medicine; Visit Provider Internal Medicine Medical Oncology
DX: Z51.11 Encounter for antineoplastic chemotherapy (principal); D46.9 Myelodysplastic syndrome, unspecified
CPT/HCPCS: 96413; J0894

== ENCOUNTER 2022-02-27 07:59 | Outpatient (CLI) | payer MEDICARE, MEDICAID, SELFPAY ==
[2022-02-27 08:14] VITALS: BP 126/73; PULSE 78; RESP 18; TEMP 36.3; O2SAT 98
[2022-02-27 08:47] VITALS: BP 126/72; PULSE 73; RESP 18; O2SAT 98
[2022-02-27 09:17] VITALS: BP 119/78; PULSE 74; RESP 18; O2SAT 97
[2022-02-27 09:55] VITALS: BP 143/81; PULSE 73; RESP 18; O2SAT 98
== END 2022-02-27 09:55 | disposition home or self-care (01) ==
LOC: INF 07:59
PROVIDERS: PCP Internal Medicine Adolescent Medicine; Visit Provider Internal Medicine Medical Oncology
DX: Z51.11 Encounter for antineoplastic chemotherapy (principal); D46.9 Myelodysplastic syndrome, unspecified
CPT/HCPCS: 96413; J0894

== ENCOUNTER 2022-02-28 07:57 | Outpatient (CLI) | payer MEDICARE, MEDICAID, SELFPAY ==
[2022-02-28 08:45] VITALS: BP 133/65; PULSE 72; RESP 18; TEMP 36.3
[2022-02-28 09:00] VITALS: BP 129/72; PULSE 66; RESP 18
[2022-02-28 09:15] VITALS: BP 139/71; PULSE 65; RESP 16
[2022-02-28 09:30] VITALS: BP 147/68; PULSE 62; RESP 16
[2022-02-28 09:45] VITALS: BP 151/70; PULSE 62; RESP 16
== END 2022-02-28 10:00 | disposition home or self-care (01) ==
LOC: INF 07:59
PROVIDERS: PCP Internal Medicine Adolescent Medicine; Visit Provider Internal Medicine Medical Oncology
DX: Z51.11 Encounter for antineoplastic chemotherapy (principal); D46.9 Myelodysplastic syndrome, unspecified
CPT/HCPCS: 96413; J0894

== ENCOUNTER 2022-03-01 07:56 | Outpatient (CLI) | payer MEDICARE, MEDICAID, SELFPAY ==
[2022-03-01 08:45] VITALS: BP 124/84; PULSE 85; RESP 20; TEMP 36.1; O2SAT 97
[2022-03-01 10:10] VITALS: BP 122/74; PULSE 68; RESP 20; TEMP 36.9; O2SAT 95
[2022-03-01 10:40] VITALS: BP 122/80; PULSE 85; RESP 20; TEMP 36.9; O2SAT 95
--- NOTE | 2022-03-07 13:38 | DIET.NUTRFU ---
Cotacted patient to check in on nutritional status s/p chemo tx. Left message with contact information
== END 2022-03-01 10:45 | disposition home or self-care (01) ==
LOC: INF 07:56
PROVIDERS: PCP Internal Medicine Adolescent Medicine; Visit Provider Internal Medicine Medical Oncology
DX: Z51.11 Encounter for antineoplastic chemotherapy (principal); D46.9 Myelodysplastic syndrome, unspecified
CPT/HCPCS: 96413; J0894

== ENCOUNTER 2022-03-21 09:28 | Outpatient (CLI) | payer MEDICARE, MEDICAID, SELFPAY ==
[2022-03-21 09:32] VITALS: BMI 32.4
[2022-03-21 09:49] LABS: Basophils # 0.1 K/mm3 (0-0.2); Eosinophils # 0.3 K/mm3 (0.0-0.4); Eosinophils % 13.3 % (0.1-12.0); Hematocrit 42.7 % (42.0-52.0); Hemoglobin 13.7 g/dL (14.1-18.0); Lymphocytes # 0.9 K/mm3 (0.7-4.5); Lymphocytes % 50.4 % (10-50); Mean Corpuscular HGB Conc 32.1 g/dL (31.8-35.4); Mean Corpuscular Hemoglobin 34.3 pg (27.0-31.2); Mean Corpuscular Volume 106.8 fl (80-94); Mean Platelet Volume 8.5 fl (7.4-10.4); Monocytes # 0.1 K/mm3 (0.1-1.0); Monocytes % 2.9 % (1.7-9.3); Neutrophils # 0.6 K/mm3 (1.8-7.8); Neutrophils % 33.3 % (37.0-80.0); Platelet Count 128 K/mm3 (142-424); Red Blood Count 3.99 M/mm3 (4.60-6.20); White Blood Count 1.9 K/mm3 (4.8-10.8)
[2022-03-21 10:00] LABS: Chloride 107 mmol/L (98-107); Potassium 4.3 mmoL/L (3.5-5.1); Sodium 140 mmol/L (136-145)
[2022-03-21 10:01] LABS: MANUAL DIFFERENTIAL MANUAL DIFFERENTIAL (MANUAL DIFF)
[2022-03-21 10:03] LABS: Alanine Aminotransferase 20 U/L (12-78); Albumin Level 4.1 g/dl (3.5-5.0); Albumin/Globulin Ratio 1.4 (1.1-1.8); Alkaline Phosphatase 70 U/L (38-126); Anion Gap 9.3 mEq/L (5-15); Aspartate Amino Transferase 31 U/L (17-59); Bilirubin,Total 0.6 mg/dl (0.2-1.3); Blood Urea Nitrogen 22 mg/dl (9-20); Calcium 9.6 mg/dl (8.4-10.2); Carbon Dioxide 28 mmol/L (22.0-30.0); Creatinine Clearance Estimated 96 mL/min (50-200); Estimated Glomerular Filt Rate 73 ml/min (>60); GFR (African American) 88 ML/MIN (>60); Glucose 104 mg/dl (74-100); Total Protein,Serum 7.1 g/dl (6.3-8.2)
[2022-03-21 10:29] LABS: Eosinophils % 8 % (0-3); Lymphocytes % 58 % (10-50); Monocytes % 2 % (2-9); Neutrophils % 30 % (42-76); Total Cells Counted 50
[2022-03-21 10:30] LABS: Anisocytosis 1+; Macrocytosis 2+; Platelet Estimate Slight Decrease
== END 2022-03-21 09:46 | disposition home or self-care (01) ==
LOC: INF 09:29
PROVIDERS: PCP Internal Medicine Adolescent Medicine; Visit Provider Internal Medicine Medical Oncology
DX: D46.9 Myelodysplastic syndrome, unspecified (principal)
CPT/HCPCS: 36415; 80053; 85007; 85025

== ENCOUNTER 2022-03-25 07:54 | Outpatient (CLI) | payer MEDICARE, MEDICAID, SELFPAY ==
[2022-03-25 08:55] VITALS: BP 156/79; PULSE 72; RESP 18; O2SAT 96
[2022-03-25 09:30] VITALS: BP 168/77; PULSE 65; RESP 18
[2022-03-25 10:10] VITALS: BP 164/76; PULSE 74; RESP 18
== END 2022-03-25 10:10 | disposition home or self-care (01) ==
LOC: INF 07:55
PROVIDERS: PCP Internal Medicine Adolescent Medicine; Visit Provider Internal Medicine Medical Oncology
DX: Z51.11 Encounter for antineoplastic chemotherapy (principal); D46.9 Myelodysplastic syndrome, unspecified
CPT/HCPCS: 96413; J0894

== ENCOUNTER 2022-03-26 08:03 | Outpatient (CLI) | payer MEDICARE, MEDICAID, SELFPAY ==
[2022-03-26 08:50] VITALS: BP 168/93; PULSE 71; RESP 18; TEMP 36.4; O2SAT 96
[2022-03-26 09:20] VITALS: BP 154/85; PULSE 86; RESP 18; O2SAT 97
[2022-03-26 09:50] VITALS: BP 164/78; PULSE 84; RESP 18; TEMP 36.4; O2SAT 98
[2022-03-26 09:56] VITALS: BP 178/84; PULSE 84; RESP 18; TEMP 36.3; O2SAT 97
[2022-03-26 10:15] VITALS: BP 178/84; PULSE 84; O2SAT 98
== END 2022-03-26 10:15 | disposition home or self-care (01) ==
LOC: INF 08:04
PROVIDERS: PCP Internal Medicine Adolescent Medicine; Visit Provider Internal Medicine Medical Oncology
DX: Z51.11 Encounter for antineoplastic chemotherapy (principal); D46.9 Myelodysplastic syndrome, unspecified
CPT/HCPCS: 96413; J0894

== ENCOUNTER 2022-03-27 08:10 | Outpatient (CLI) | payer MEDICARE, MEDICAID, SELFPAY ==
[2022-03-27 08:45] VITALS: BP 123/71; PULSE 68; RESP 16; TEMP 36.3; O2SAT 95
[2022-03-27 09:00] VITALS: BP 130/67; PULSE 66; RESP 16
[2022-03-27 09:15] VITALS: BP 139/74; PULSE 68; RESP 16
[2022-03-27 09:30] VITALS: BP 142/67; PULSE 68; RESP 16
[2022-03-27 09:45] VITALS: BP 160/80; PULSE 64; RESP 16
[2022-03-27 10:00] VITALS: BP 158/78; PULSE 63; RESP 16
== END 2022-03-27 10:15 | disposition home or self-care (01) ==
LOC: INF 08:10
PROVIDERS: PCP Internal Medicine Adolescent Medicine; Visit Provider Internal Medicine Medical Oncology
DX: Z51.11 Encounter for antineoplastic chemotherapy (principal); D46.9 Myelodysplastic syndrome, unspecified
CPT/HCPCS: 96413; J0894

== ENCOUNTER 2022-03-28 07:54 | Outpatient (CLI) | payer MEDICARE, MEDICAID, SELFPAY ==
[2022-03-28 08:50] VITALS: BP 138/72; PULSE 74; RESP 18; O2SAT 97
[2022-03-28 09:20] VITALS: BP 146/83; PULSE 68; RESP 18; O2SAT 97
[2022-03-28 09:50] VITALS: BP 143/87; PULSE 66; RESP 17; O2SAT 98
[2022-03-28 10:05] VITALS: BP 144/85; PULSE 65; RESP 18; O2SAT 97
[2022-03-28 10:10] VITALS: O2SAT 98
== END 2022-03-28 10:10 | disposition home or self-care (01) ==
LOC: INF 07:55
PROVIDERS: PCP Internal Medicine Adolescent Medicine; Visit Provider Internal Medicine Medical Oncology
DX: Z51.11 Encounter for antineoplastic chemotherapy (principal); D46.9 Myelodysplastic syndrome, unspecified
CPT/HCPCS: 96413; J0894

== ENCOUNTER 2022-03-29 07:59 | Outpatient (CLI) | payer MEDICARE, MEDICAID, SELFPAY ==
[2022-03-29 08:40] VITALS: BP 128/63; PULSE 69; RESP 18; TEMP 36; O2SAT 99
[2022-03-29 09:10] VITALS: BP 129/60; PULSE 67; RESP 17; O2SAT 98
[2022-03-29 09:40] VITALS: BP 154/75; PULSE 64; RESP 18; O2SAT 97
[2022-03-29 09:48] VITALS: TEMP 36.4; O2SAT 98
== END 2022-03-29 09:48 | disposition home or self-care (01) ==
LOC: INF 08:00
PROVIDERS: PCP Internal Medicine Adolescent Medicine; Visit Provider Internal Medicine Medical Oncology
DX: D46.9 Myelodysplastic syndrome, unspecified; Z51.11 Encounter for antineoplastic chemotherapy
CPT/HCPCS: 96413; J0894

== ENCOUNTER 2022-04-18 08:00 | Outpatient (CLI) | payer MEDICARE, MEDICAID, SELFPAY ==
[2022-04-18 08:10] VITALS: BMI 32.5
--- NOTE | 2022-04-18 08:10 | PC.NURSE ---
0810-pt here for lab draw via peripheral stick for oncology appointment.
[2022-04-18 08:19] LABS: Basophils % 1.7 % (0.1-2.0); Eosinophils # 0.3 K/mm3 (0.0-0.4); Eosinophils % 11.9 % (0.1-12.0); Hematocrit 39.6 % (42.0-52.0); Hemoglobin 13.6 g/dL (14.1-18.0); Lymphocytes # 0.9 K/mm3 (0.7-4.5); Lymphocytes % 43.6 % (10-50); Mean Corpuscular HGB Conc 34.4 g/dL (31.8-35.4); Mean Corpuscular Hemoglobin 34.8 pg (27.0-31.2); Mean Corpuscular Volume 101.2 fl (80-94); Mean Platelet Volume 9.1 fl (7.4-10.4); Monocytes # 0.1 K/mm3 (0.1-1.0); Monocytes % 4.7 % (1.7-9.3); Neutrophils # 0.8 K/mm3 (1.8-7.8); Neutrophils % 38.2 % (37.0-80.0); Platelet Count 105 K/mm3 (142-424); Red Blood Count 3.91 M/mm3 (4.60-6.20); Red Cell Distribution Width 15.6 % (11.5-17.5); White Blood Count 2.1 K/mm3 (4.8-10.8)
[2022-04-18 08:31] LABS: Chloride 107 mmol/L (98-107); Potassium 3.8 mmoL/L (3.5-5.1); Sodium 139 mmol/L (136-145)
[2022-04-18 08:34] LABS: Alanine Aminotransferase 21 U/L (12-78); Albumin/Globulin Ratio 1.4 (1.1-1.8); Alkaline Phosphatase 71 U/L (38-126); Anion Gap 7.8 mEq/L (5-15); Aspartate Amino Transferase 35 U/L (17-59); Bilirubin,Total 0.7 mg/dl (0.2-1.3); Blood Urea Nitrogen 19 mg/dl (9-20); Calcium 9.3 mg/dl (8.4-10.2); Carbon Dioxide 28 mmol/L (22.0-30.0); Creatinine Clearance Estimated 95 mL/min (50-200); Estimated Glomerular Filt Rate 72 ml/min (>60); GFR (African American) 88 ML/MIN (>60); Globulin 2.8 g/dL (1.3-3.2); Glucose 133 mg/dl (74-100); Total Protein,Serum 6.8 g/dl (6.3-8.2)
== END 2022-04-18 08:15 | disposition home or self-care (01) ==
LOC: INF 08:01
PROVIDERS: PCP Internal Medicine Adolescent Medicine; Visit Provider Internal Medicine Medical Oncology
DX: D46.9 Myelodysplastic syndrome, unspecified (principal)
CPT/HCPCS: 36415; 80053; 85025

== ENCOUNTER 2022-04-22 07:59 | Outpatient (CLI) | payer MEDICARE, MEDICAID, SELFPAY ==
[2022-04-22 08:28] VITALS: BP 142/75; PULSE 78; RESP 18; TEMP 36.2; O2SAT 96
[2022-04-22 08:45] VITALS: BP 126/68; PULSE 75; RESP 18; O2SAT 97
[2022-04-22 09:15] VITALS: BP 129/71; PULSE 79; RESP 18; O2SAT 97
[2022-04-22 10:00] VITALS: BP 130/67; PULSE 72; RESP 18; O2SAT 97
== END 2022-04-22 10:05 | disposition home or self-care (01) ==
LOC: INF 08:00
PROVIDERS: PCP Internal Medicine Adolescent Medicine; Visit Provider Internal Medicine Medical Oncology
DX: D46.9 Myelodysplastic syndrome, unspecified (principal); Z51.11 Encounter for antineoplastic chemotherapy
CPT/HCPCS: 96413; J0894

== ENCOUNTER 2022-04-23 08:04 | Outpatient (CLI) | payer MEDICARE, MEDICAID, SELFPAY ==
[2022-04-23 08:12] VITALS: BP 105/66; PULSE 85; RESP 18; TEMP 36.5; O2SAT 97
[2022-04-23 08:41] VITALS: BP 120/70; PULSE 76; RESP 18; O2SAT 97
[2022-04-23 09:10] VITALS: BP 138/71; PULSE 79; RESP 18; O2SAT 97
[2022-04-23 09:50] VITALS: BP 152/69; PULSE 68; RESP 18; TEMP 36.4; O2SAT 97
== END 2022-04-23 09:50 | disposition home or self-care (01) ==
LOC: INF 08:05
PROVIDERS: PCP Internal Medicine Adolescent Medicine; Visit Provider Internal Medicine Medical Oncology
DX: Z51.11 Encounter for antineoplastic chemotherapy (principal); D46.9 Myelodysplastic syndrome, unspecified
CPT/HCPCS: 96413; J0894

== ENCOUNTER 2022-04-24 08:05 | Outpatient (CLI) | payer MEDICARE, MEDICAID, SELFPAY ==
[2022-04-24 09:10] VITALS: BP 148/86; PULSE 72; RESP 18; TEMP 36.6; O2SAT 99
[2022-04-24 09:40] VITALS: BP 145/81; PULSE 70; RESP 18; TEMP 36.4; O2SAT 99
[2022-04-24 10:10] VITALS: BP 147/84; PULSE 75; RESP 18; TEMP 36.4; O2SAT 98
[2022-04-24 10:12] VITALS: BP 140/82; PULSE 72; RESP 18; TEMP 36.6; O2SAT 99
== END 2022-04-24 10:12 | disposition home or self-care (01) ==
LOC: INF 08:06
PROVIDERS: PCP Internal Medicine Adolescent Medicine; Visit Provider Internal Medicine Medical Oncology
DX: Z51.11 Encounter for antineoplastic chemotherapy (principal); D46.9 Myelodysplastic syndrome, unspecified
CPT/HCPCS: 96413; J0894

== ENCOUNTER 2022-04-25 08:01 | Outpatient (CLI) | payer MEDICARE, MEDICAID, SELFPAY ==
[2022-04-25 08:45] VITALS: BP 130/72; PULSE 68; RESP 18; TEMP 36.2; O2SAT 95
[2022-04-25 09:15] VITALS: BP 134/66; PULSE 69; RESP 18; TEMP 36.3; O2SAT 96
[2022-04-25 09:45] VITALS: BP 134/59; PULSE 70; RESP 18; TEMP 36.2; O2SAT 95
[2022-04-25 09:55] VITALS: BP 134/62; PULSE 70; RESP 18; TEMP 36.2; O2SAT 95
== END 2022-04-25 09:55 | disposition home or self-care (01) ==
LOC: INF 08:02
PROVIDERS: PCP Internal Medicine Adolescent Medicine; Visit Provider Internal Medicine Medical Oncology
DX: Z51.11 Encounter for antineoplastic chemotherapy (principal); D46.9 Myelodysplastic syndrome, unspecified
CPT/HCPCS: 96413; J0894

== ENCOUNTER 2022-04-26 08:00 | Outpatient (CLI) | payer MEDICARE, MEDICAID, SELFPAY ==
[2022-04-26 08:40] VITALS: BP 151/71; PULSE 70; RESP 18; TEMP 36.3; O2SAT 97
[2022-04-26 09:10] VITALS: BP 144/68; PULSE 70; RESP 18; TEMP 36.3; O2SAT 99
[2022-04-26 09:45] VITALS: BP 144/70; PULSE 71; RESP 18; O2SAT 99
== END 2022-04-26 09:45 | disposition home or self-care (01) ==
LOC: INF 08:01
PROVIDERS: PCP Internal Medicine Adolescent Medicine; Visit Provider Internal Medicine Medical Oncology
DX: Z51.11 Encounter for antineoplastic chemotherapy (principal); D46.9 Myelodysplastic syndrome, unspecified
CPT/HCPCS: 96413; J0894

== ENCOUNTER 2022-05-16 08:05 | Outpatient (CLI) | payer MEDICARE, MEDICAID, SELFPAY ==
[2022-05-16 08:11] VITALS: BMI 33.5
[2022-05-16 08:25] LABS: Basophils # 0.1 K/mm3 (0-0.2); Basophils % 3.9 % (0.1-2.0); Eosinophils # 0.3 K/mm3 (0.0-0.4); Eosinophils % 11.4 % (0.1-12.0); Hematocrit 43.2 % (42.0-52.0); Hemoglobin 13.3 g/dL (14.1-18.0); Lymphocytes # 1.4 K/mm3 (0.7-4.5); Lymphocytes % 52.3 % (10-50); Mean Corpuscular HGB Conc 30.9 g/dL (31.8-35.4); Mean Corpuscular Hemoglobin 33.5 pg (27.0-31.2); Mean Corpuscular Volume 108.6 fl (80-94); Mean Platelet Volume 9.2 fl (7.4-10.4); Monocytes # 0.1 K/mm3 (0.1-1.0); Neutrophils # 0.8 K/mm3 (1.8-7.8); Neutrophils % 29.4 % (37.0-80.0); Platelet Count 145 K/mm3 (142-424); Red Blood Count 3.98 M/mm3 (4.60-6.20); Red Cell Distribution Width 15.6 % (11.5-17.5); White Blood Count 2.6 K/mm3 (4.8-10.8)
[2022-05-16 08:26] LABS: MANUAL DIFFERENTIAL MANUAL DIFFERENTIAL (MANUAL DIFF)
[2022-05-16 08:34] LABS: Alanine Aminotransferase 19 U/L (12-78); Albumin/Globulin Ratio 1.4 (1.1-1.8); Alkaline Phosphatase 95 U/L (38-126); Anion Gap 8.7 mEq/L (5-15); Aspartate Amino Transferase 28 U/L (17-59); Bilirubin,Total 0.5 mg/dl (0.2-1.3); Blood Urea Nitrogen 28 mg/dl (9-20); Calcium 9.4 mg/dl (8.4-10.2); Carbon Dioxide 28 mmol/L (22.0-30.0); Chloride 109 mmol/L (98-107); Creatinine Clearance Estimated 89 mL/min (50-200); Estimated Glomerular Filt Rate 65 ml/min (>60); GFR (African American) 79 ML/MIN (>60); Globulin 2.9 g/dL (1.3-3.2); Glucose 102 mg/dl (74-100); Potassium 3.7 mmoL/L (3.5-5.1); Sodium 142 mmol/L (136-145); Total Protein,Serum 6.9 g/dl (6.3-8.2)
[2022-05-16 08:42] LABS: Anisocytosis 1+; Eosinophils % 8 % (0-3); Hypochromasia 1+; Lymphocytes % 50 % (10-50); Macrocytosis 1+; Monocytes % 2 % (2-9); Neutrophils % 40 % (42-76); Ovalocytes 1+; Platelet Estimate Slight Decrease; Total Cells Counted 100
== END 2022-05-16 08:18 | disposition home or self-care (01) ==
LOC: INF 08:06
PROVIDERS: PCP Internal Medicine Adolescent Medicine; Visit Provider Internal Medicine Medical Oncology
DX: C94.6 Myelodysplastic disease, not elsewhere classified (principal)
CPT/HCPCS: 36415; 80053; 85007; 85025

== ENCOUNTER 2022-05-20 08:01 | Outpatient (CLI) | payer MEDICARE, MEDICAID, SELFPAY ==
[2022-05-20 08:20] VITALS: BP 136/63; PULSE 82; RESP 18; TEMP 36.6; O2SAT 98
[2022-05-20 08:46] VITALS: BP 128/68; PULSE 79; RESP 18; O2SAT 99
[2022-05-20 09:20] VITALS: BP 140/62; PULSE 81; RESP 18; O2SAT 98
[2022-05-20 09:48] VITALS: BP 151/89; PULSE 76; RESP 18; O2SAT 99
== END 2022-05-20 09:50 | disposition home or self-care (01) ==
LOC: INF 08:02
PROVIDERS: PCP Internal Medicine Adolescent Medicine; Visit Provider Internal Medicine Medical Oncology
DX: Z51.11 Encounter for antineoplastic chemotherapy (principal); D46.9 Myelodysplastic syndrome, unspecified
CPT/HCPCS: 96413; J0894

== ENCOUNTER 2022-05-21 07:50 | Outpatient (CLI) | payer MEDICARE, MEDICAID, SELFPAY ==
[2022-05-21 08:11] VITALS: BP 136/71; PULSE 82; RESP 18; TEMP 36.2; O2SAT 96
[2022-05-21 08:36] VITALS: BP 136/77; PULSE 84; RESP 18; O2SAT 97
[2022-05-21 09:06] VITALS: BP 140/69; PULSE 82; RESP 18; O2SAT 96
[2022-05-21 09:37] VITALS: BP 152/76; PULSE 78; RESP 18; O2SAT 96
== END 2022-05-21 09:44 | disposition home or self-care (01) ==
LOC: INF 07:50
PROVIDERS: PCP Internal Medicine Adolescent Medicine; Visit Provider Internal Medicine Medical Oncology
DX: Z51.11 Encounter for antineoplastic chemotherapy (principal); D46.9 Myelodysplastic syndrome, unspecified
CPT/HCPCS: 96413; J0894

== ENCOUNTER 2022-05-22 07:53 | Outpatient (CLI) | payer MEDICARE, MEDICAID, SELFPAY ==
[2022-05-22 08:13] VITALS: BP 123/70; PULSE 86; RESP 18; TEMP 36.7; O2SAT 98
[2022-05-22 08:40] VITALS: BP 136/69; PULSE 84; RESP 18; O2SAT 98
[2022-05-22 09:10] VITALS: BP 128/71; PULSE 81; RESP 18; O2SAT 97
[2022-05-22 09:45] VITALS: BP 133/74; PULSE 82; RESP 18; O2SAT 97
== END 2022-05-22 09:45 | disposition home or self-care (01) ==
LOC: INF 07:54
PROVIDERS: PCP Internal Medicine Adolescent Medicine; Visit Provider Internal Medicine Medical Oncology
DX: Z51.11 Encounter for antineoplastic chemotherapy (principal); D46.9 Myelodysplastic syndrome, unspecified
CPT/HCPCS: 96413; J0894

== ENCOUNTER 2022-05-23 07:52 | Outpatient (CLI) | payer MEDICARE, MEDICAID, SELFPAY ==
[2022-05-23 08:15] VITALS: BP 110/62; PULSE 86; RESP 18; TEMP 36.4; O2SAT 98
[2022-05-23 08:47] VITALS: BP 128/66; PULSE 84; RESP 18; O2SAT 97
[2022-05-23 09:17] VITALS: BP 118/67; PULSE 88; RESP 18; O2SAT 97
[2022-05-23 09:50] VITALS: BP 123/62; PULSE 86; RESP 18; O2SAT 98
== END 2022-05-23 10:00 | disposition home or self-care (01) ==
LOC: INF 07:53
PROVIDERS: PCP Internal Medicine Adolescent Medicine; Visit Provider Internal Medicine Medical Oncology
DX: Z51.11 Encounter for antineoplastic chemotherapy (principal); D46.9 Myelodysplastic syndrome, unspecified
CPT/HCPCS: 96413; J0894

== ENCOUNTER 2022-05-24 07:53 | Outpatient (CLI) | payer MEDICARE, MEDICAID, SELFPAY ==
[2022-05-24 08:40] VITALS: BP 145/72; PULSE 82; RESP 18; TEMP 36.4; O2SAT 99
[2022-05-24 09:15] VITALS: BP 153/75; PULSE 84; RESP 18; TEMP 36.4; O2SAT 98
[2022-05-24 09:50] VITALS: BP 165/72; PULSE 81; RESP 18; TEMP 36.4; O2SAT 98
== END 2022-05-24 09:50 | disposition home or self-care (01) ==
LOC: INF 07:54
PROVIDERS: PCP Internal Medicine Adolescent Medicine; Visit Provider Internal Medicine Medical Oncology
DX: Z51.11 Encounter for antineoplastic chemotherapy (principal); D46.9 Myelodysplastic syndrome, unspecified
CPT/HCPCS: 96413; J0894

== ENCOUNTER 2022-06-14 08:15 | Outpatient (CLI) | payer MEDICARE, MEDICAID, SELFPAY ==
[2022-06-14 08:19] VITALS: BMI 32.0
[2022-06-14 08:41] LABS: Basophils # 0.1 K/mm3 (0-0.2); Basophils % 2.5 % (0.1-2.0); Eosinophils # 0.4 K/mm3 (0.0-0.4); Eosinophils % 12.7 % (0.1-12.0); Hematocrit 42.1 % (42.0-52.0); Hemoglobin 13.1 g/dL (14.1-18.0); Lymphocytes # 1.6 K/mm3 (0.7-4.5); Lymphocytes % 53.5 % (10-50); Mean Corpuscular HGB Conc 31.1 g/dL (31.8-35.4); Mean Corpuscular Hemoglobin 34.2 pg (27.0-31.2); Mean Corpuscular Volume 110.2 fl (80-94); Mean Platelet Volume 9.7 fl (7.4-10.4); Monocytes # 0.1 K/mm3 (0.1-1.0); Monocytes % 3.6 % (1.7-9.3); Neutrophils # 0.8 K/mm3 (1.8-7.8); Neutrophils % 27.7 % (37.0-80.0); Platelet Count 122 K/mm3 (142-424); Red Blood Count 3.82 M/mm3 (4.60-6.20); Red Cell Distribution Width 15.6 % (11.5-17.5)
[2022-06-14 08:46] LABS: MANUAL DIFFERENTIAL MANUAL DIFFERENTIAL (MANUAL DIFF)
[2022-06-14 08:48] LABS: Chloride 108 mmol/L (98-107)
[2022-06-14 08:49] LABS: Potassium 3.6 mmoL/L (3.5-5.1); Sodium 143 mmol/L (136-145)
[2022-06-14 08:51] LABS: Alanine Aminotransferase 16 U/L (12-78); Alkaline Phosphatase 85 U/L (38-126); Aspartate Amino Transferase 30 U/L (17-59); Bilirubin,Total 0.4 mg/dl (0.2-1.3); Blood Urea Nitrogen 28 mg/dl (9-20); Creatinine Clearance Estimated 85 mL/min (50-200); Estimated Glomerular Filt Rate 65 ml/min (>60); GFR (African American) 79 ML/MIN (>60)
[2022-06-14 08:52] LABS: Albumin Level 3.8 g/dl (3.5-5.0); Albumin/Globulin Ratio 1.4 (1.1-1.8); Anion Gap 9.6 mEq/L (5-15); Calcium 9.2 mg/dl (8.4-10.2); Carbon Dioxide 29 mmol/L (22.0-30.0); Globulin 2.8 g/dL (1.3-3.2); Glucose 120 mg/dl (74-100); Total Protein,Serum 6.6 g/dl (6.3-8.2)
[2022-06-14 10:02] LABS: Eosinophils % 8 % (0-3); Lymphocytes % 61 % (10-50); Macrocytosis 2+; Monocytes % 5 % (2-9); Neutrophils % 26 % (42-76); Platelet Estimate Slight Decrease; Total Cells Counted 100
[2022-06-14 10:03] LABS: Ovalocytes 1+
== END 2022-06-14 08:28 | disposition home or self-care (01) ==
LOC: INF 08:16
PROVIDERS: PCP Internal Medicine Adolescent Medicine; Visit Provider Internal Medicine Medical Oncology
DX: D46.9 Myelodysplastic syndrome, unspecified (principal)
CPT/HCPCS: 36415; 80053; 85007; 85025

== ENCOUNTER 2022-06-18 08:05 | Outpatient (CLI) | payer MEDICARE, MEDICAID, SELFPAY ==
[2022-06-18 08:11] VITALS: BMI 32.1
[2022-06-18 08:40] LABS: Chol/HDL Ratio 3.1 (1-3.5); Cholesterol 163 mg/dl (140-200); HDL Cholesterol 53 mg/dl (40-60); Triglycerides 134 mg/dl (30-150); VLDL Cholesterol 27 mg/dL (0-40)
[2022-06-18 08:41] LABS: Hemoglobin A1C 4.9 % (4.0-6.0)
[2022-06-18 08:58] VITALS: BP 116/67; PULSE 95; RESP 18; TEMP 36.6; O2SAT 98
--- NOTE | 2022-06-18 09:15 | PC.NURSE ---
0915-notified Lisa Friedman aprn that pt's heart rate jumped from 70 bpm to 144bmp but then dropped back down to 63bpm with in seconds, pt states that he is having fluttering in his chest when the heart rate jumps up; new orders for holter monitor and event recorder for 14 days.
[2022-06-18 10:13] VITALS: BP 105/60; PULSE 70; RESP 18
[2022-06-19 08:28] LABS: Direct LDL Cholesterol 80 mg/dL (100-129)
[2022-06-19 09:16] LABS: PSA, Free 0.12 ng/mL; Prostate Specific Ag 0.3 ng/mL (0.0-4.0)
== END 2022-06-18 10:13 | disposition home or self-care (01) ==
PROVIDERS: PCP Internal Medicine Adolescent Medicine; Visit Provider Internal Medicine Medical Oncology
DX: D46.9 Myelodysplastic syndrome, unspecified (principal); I48.91 Unspecified atrial fibrillation; R73.9 Hyperglycemia, unspecified; E78.2 Mixed hyperlipidemia; N40.1 Benign prostatic hyperplasia with lower urinary tract symptoms
CPT/HCPCS: 80061; 83036; 84153; 84154; 93270; 96413; J0894

== ENCOUNTER 2022-06-19 07:56 | Outpatient (CLI) | payer MEDICARE, MEDICAID, SELFPAY ==
[2022-06-19 08:47] VITALS: BP 139/64; PULSE 72; RESP 18; TEMP 36.2; O2SAT 98
[2022-06-19 10:12] VITALS: BP 143/72; PULSE 78; RESP 18
== END 2022-06-19 10:12 | disposition home or self-care (01) ==
LOC: INF 07:57
PROVIDERS: PCP Internal Medicine Adolescent Medicine; Visit Provider Internal Medicine Medical Oncology
DX: Z51.11 Encounter for antineoplastic chemotherapy (principal); D46.9 Myelodysplastic syndrome, unspecified
CPT/HCPCS: 96413; J0894

== ENCOUNTER 2022-06-20 07:56 | Outpatient (CLI) | payer MEDICARE, MEDICAID, SELFPAY ==
[2022-06-20 08:45] VITALS: BP 109/61; PULSE 75; RESP 18; O2SAT 98
[2022-06-20 09:00] VITALS: BP 112/70; PULSE 70; RESP 16
[2022-06-20 09:15] VITALS: BP 126/72; PULSE 72; RESP 16
[2022-06-20 09:30] VITALS: BP 142/73; PULSE 66; RESP 16; O2SAT 98
[2022-06-20 09:45] VITALS: BP 131/67; PULSE 74; RESP 16
== END 2022-06-20 10:03 | disposition home or self-care (01) ==
LOC: INF 07:57
PROVIDERS: PCP Internal Medicine Adolescent Medicine; Visit Provider Internal Medicine Medical Oncology
DX: D46.9 Myelodysplastic syndrome, unspecified (principal)
CPT/HCPCS: 96413; J0894

== ENCOUNTER 2022-06-21 08:03 | Outpatient (CLI) | payer MEDICARE, MEDICAID, SELFPAY ==
[2022-06-21 08:50] VITALS: BP 129/62; PULSE 76; RESP 18; O2SAT 96
[2022-06-21 09:05] VITALS: BP 126/67; PULSE 70; RESP 16; O2SAT 96
[2022-06-21 09:20] VITALS: BP 119/63; PULSE 71; RESP 16; O2SAT 97
[2022-06-21 09:35] VITALS: BP 130/74; PULSE 66; RESP 16; O2SAT 99
[2022-06-21 09:50] VITALS: BP 136/41; PULSE 69; RESP 16; O2SAT 98
== END 2022-06-21 10:05 | disposition home or self-care (01) ==
LOC: INF 08:04
PROVIDERS: PCP Internal Medicine Adolescent Medicine; Visit Provider Internal Medicine Medical Oncology
DX: D46.9 Myelodysplastic syndrome, unspecified (principal)
CPT/HCPCS: 96413; J0894

== ENCOUNTER 2022-07-11 08:58 | Outpatient (CLI) | payer MEDICARE, MEDICAID, SELFPAY ==
[2022-07-11 09:00] VITALS: BMI 32.1
--- NOTE | 2022-07-11 09:04 | PC.NURSE ---
0904-collected labs via peripheral stick;pt to oncology appointment.
[2022-07-11 09:30] LABS: Basophils # 0.1 K/mm3 (0-0.2); Basophils % 1.5 % (0.1-2.0); Eosinophils # 0.4 K/mm3 (0.0-0.4); Eosinophils % 13.3 % (0.1-12.0); Hemoglobin 14.2 g/dL (14.1-18.0); Lymphocytes # 1.6 K/mm3 (0.7-4.5); Lymphocytes % 47.5 % (10-50); Mean Corpuscular HGB Conc 32.3 g/dL (31.8-35.4); Mean Corpuscular Volume 105.3 fl (80-94); Mean Platelet Volume 8.5 fl (7.4-10.4); Monocytes # 0.1 K/mm3 (0.1-1.0); Monocytes % 4.2 % (1.7-9.3); Neutrophils # 1.1 K/mm3 (1.8-7.8); Neutrophils % 33.5 % (37.0-80.0); Platelet Count 114 K/mm3 (142-424); Red Blood Count 4.18 M/mm3 (4.60-6.20); Red Cell Distribution Width 15.4 % (11.5-17.5); White Blood Count 3.3 K/mm3 (4.8-10.8)
[2022-07-11 09:35] LABS: Alanine Aminotransferase 22 U/L (12-78); Albumin Level 3.8 g/dl (3.5-5.0); Albumin/Globulin Ratio 1.4 (1.1-1.8); Alkaline Phosphatase 84 U/L (38-126); Anion Gap 10.1 mEq/L (5-15); Aspartate Amino Transferase 31 U/L (17-59); Bilirubin,Total 0.3 mg/dl (0.2-1.3); Blood Urea Nitrogen 22 mg/dl (9-20); Calcium 8.8 mg/dl (8.4-10.2); Carbon Dioxide 30 mmol/L (22.0-30.0); Chloride 105 mmol/L (98-107); Creatinine Clearance Estimated 94 mL/min (50-200); Estimated Glomerular Filt Rate 72 ml/min (>60); GFR (African American) 88 ML/MIN (>60); Globulin 2.8 g/dL (1.3-3.2); Glucose 129 mg/dl (74-100); Potassium 4.1 mmoL/L (3.5-5.1); Sodium 141 mmol/L (136-145); Total Protein,Serum 6.6 g/dl (6.3-8.2)
== END 2022-07-11 09:05 | disposition home or self-care (01) ==
LOC: INF 08:59
PROVIDERS: PCP Internal Medicine Adolescent Medicine; Visit Provider Internal Medicine Medical Oncology
DX: D46.9 Myelodysplastic syndrome, unspecified (principal)
CPT/HCPCS: 36415; 80053; 85025

== ENCOUNTER 2022-07-15 08:02 | Outpatient (CLI) | payer MEDICARE, MEDICAID, SELFPAY ==
[2022-07-15 08:22] VITALS: BP 134/65; PULSE 83; RESP 18; TEMP 36.4; O2SAT 97
[2022-07-15 08:54] VITALS: BP 129/68; PULSE 88; RESP 18; O2SAT 97
[2022-07-15 09:24] VITALS: BP 141/70; PULSE 84; RESP 18; O2SAT 97
[2022-07-15 10:05] VITALS: BP 154/75; PULSE 68; RESP 18; O2SAT 98
== END 2022-07-15 10:10 | disposition home or self-care (01) ==
LOC: INF 08:03
PROVIDERS: PCP Internal Medicine Adolescent Medicine; Visit Provider Internal Medicine Medical Oncology
DX: D46.9 Myelodysplastic syndrome, unspecified (principal)
CPT/HCPCS: 96413; J0894

== ENCOUNTER 2022-07-16 08:02 | Outpatient (CLI) | payer MEDICARE, MEDICAID, SELFPAY ==
[2022-07-16 09:00] VITALS: BP 136/74; PULSE 72; RESP 18; TEMP 36.1; O2SAT 99
[2022-07-16 09:30] VITALS: BP 142/71; PULSE 63; RESP 18; O2SAT 99
[2022-07-16 10:15] VITALS: BP 157/80; PULSE 61; RESP 18; TEMP 36.2; O2SAT 99
== END 2022-07-16 10:15 | disposition home or self-care (01) ==
PROVIDERS: PCP Internal Medicine Adolescent Medicine; Visit Provider Internal Medicine Medical Oncology
DX: D46.9 Myelodysplastic syndrome, unspecified (principal)
CPT/HCPCS: 96413; J0894

== ENCOUNTER 2022-07-17 08:00 | Outpatient (CLI) | payer MEDICARE, MEDICAID, SELFPAY ==
[2022-07-17 08:44] VITALS: BP 157/76; PULSE 73; RESP 18; TEMP 37; O2SAT 98
[2022-07-17 09:00] VITALS: BP 166/71; PULSE 70; RESP 18
[2022-07-17 09:15] VITALS: BP 166/71; PULSE 71; RESP 18
[2022-07-17 09:30] VITALS: BP 156/71; PULSE 67; RESP 18
[2022-07-17 09:56] VITALS: BP 157/74; PULSE 64; RESP 18
== END 2022-07-17 09:56 | disposition home or self-care (01) ==
LOC: INF 08:01
PROVIDERS: PCP Internal Medicine Adolescent Medicine; Visit Provider Internal Medicine Medical Oncology
DX: D46.9 Myelodysplastic syndrome, unspecified (principal)
CPT/HCPCS: 96413; J0894

== ENCOUNTER 2022-07-18 07:56 | Outpatient (CLI) | payer MEDICARE, MEDICAID, SELFPAY ==
[2022-07-18 08:53] VITALS: BP 138/57; PULSE 72; RESP 18; TEMP 36.9; O2SAT 96
[2022-07-18 09:15] VITALS: BP 128/62; PULSE 67; RESP 18
[2022-07-18 09:30] VITALS: BP 154/65; PULSE 64; RESP 18
[2022-07-18 09:45] VITALS: BP 156/71; PULSE 61; RESP 18
[2022-07-18 09:53] VITALS: BP 159/74; PULSE 61; RESP 18
[2022-07-18 10:00] VITALS: BP 164/78; PULSE 64; RESP 18
== END 2022-07-18 10:00 | disposition home or self-care (01) ==
LOC: INF 08:01
PROVIDERS: PCP Internal Medicine Adolescent Medicine; Visit Provider Internal Medicine Medical Oncology
DX: D46.9 Myelodysplastic syndrome, unspecified (principal)
CPT/HCPCS: 96413; J0894

== ENCOUNTER 2022-07-19 07:58 | Outpatient (CLI) | payer MEDICARE, MEDICAID, SELFPAY ==
[2022-07-19 08:45] VITALS: BP 121/76; PULSE 71; RESP 18; TEMP 36.8; O2SAT 96
[2022-07-19 09:00] VITALS: BP 143/65; PULSE 62; RESP 18
[2022-07-19 09:15] VITALS: BP 150/66; PULSE 62; RESP 18
[2022-07-19 09:30] VITALS: BP 155/68; PULSE 62; RESP 18
[2022-07-19 09:45] VITALS: RESP 18
[2022-07-19 09:55] VITALS: BP 149/67; PULSE 64; RESP 18
== END 2022-07-19 09:55 | disposition home or self-care (01) ==
LOC: INF 08:00
PROVIDERS: PCP Internal Medicine Adolescent Medicine; Visit Provider Internal Medicine Medical Oncology
DX: D46.9 Myelodysplastic syndrome, unspecified (principal)
CPT/HCPCS: 96413; J0894

== ENCOUNTER → 2022-08-06 07:48 | Outpatient (CLI) | payer MEDICARE, MEDICAID, SELFPAY ==
--- NOTE | 2022-08-06 | CA_ITS ---
APPROVED REPORT Exam: Pharmacologic Technologist: Kathy Garcia, Ht: 6 ft 0 in Wt: 235 lbs BSA: 2.28 m2 HR: 52 bpm BP: 131/59 mmHg Rhythm: sinus hitesh, RBBB Medical History Medical History: HTN, Hyperlipidemia Medications: Flomax,,,,, Atorvastatin,,,,, Buspirone,,,,, SyMBICORT,,,,, Albuterol,,,,, MeLOXICAM,,,,, Cyclobenzaprine,,,,, Multivitamin,,,,, Lisinopri/HCTZ,,,,, OxYCODONE acetaminophen,,,,, Cardiac Risk Factors: HTN, Hyperlipidemia, FHX of CAD, Smoking Stress Test Details Test: LEXISCAN HR Resting HR: 55 bpm Max Heart Rate (APMHR): [id number] bpm Max HR Achieved: 72 bpm Target HR (85% APMHR): 121.407214 bpm % of APMHR: 50.35 Recovery HR: 65 bpm BP Resting BP: 131/59 mmHg Max BP: 136/64 mmHg Recovery BP: 132.0/58.0 mmHg ECG Resting ECG: sinus hitesh, RBBB Clinical Exercise duration: 07:34 min Highest Stage Achieved: Exercise capacity: 1.0 METs Stress ECG Conclusion During lexiscan pt experinced SOA and malaise. No CP noted. Rare PAC. No significant ST changes. Unremarkable lexiscan stress. Myoview images reported separately. Electronically signed by : Don Hobbs MD 08/07/2022 06:39:20
--- NOTE | 2022-08-06 07:49 | NM_ITS ---
APPROVED REPORT Exam: Nuclear Stress Test Indication: Chest pain, SOB, Palpitations, HTN, High cholesterol, Family history Patient Location: Outpatient Stress Tech: Kathy HIGGINBOTHAM Tech:Susan Holland, ARRT, RT (R)(N) Ht: 6 ft 0 in Wt: 230 lbs HR: 55 bpm BP: 131/59 mmHg BSA: 2.26 m2 TID: 1.08 History: Chest pain, SOB, Palpitations, HTN, High cholesterol, Family history Procedure: Patient received a 0.4 mg of intravenous Lexiscan, resting heart rate 55 bpm, resting blood pressure 131/59 mmHg, with Lexiscan maximum heart rate achived was 72 bpm which is Less than 85 % of the maximum predicted heart rate and blood pressure was 136/64 mmHg. With Lexiscan, patient denied any complaint of chest pain. Electrocardiogram Resting electrocardiogram shows sinus rhythm right bundle branch block, with Lexiscan there is less than 1.[address] segment depression noted from the baseline EKG. The EKG portion of the Lexiscan is nondiagnostic. Cardiac Stress and Resting SPECT Images: Cardiac Stress and Resting SPECT images were obtained using technetium 99m Myoview 32.3 mCi stress and 10.90 mCi at rest. Gated SPECT for analysis of segmental wall motion and calculation of the ejection fraction also done. Prone images were not obtained. Cardiac stress and rest SPECT images show mild fixed defect in the inferior wall with normal contractility in the gated SPECT is likely secondary to soft tissue attenuation, no reversible ischemia seen, computer derived ejection fraction is 52% with no regional wall motion abnormality, right ventricle is normal size and contractility. Conclusion: 1. The EKG portion of the Lexiscan Myoview was nondiagnostic. 2. No scintigraphic evidence of reversible ischemia seen, computer derived ejection fraction is 52% with no regional wall motion abnormality, right ventricle is normal size and contractility. 3. Likely normal Lexiscan Myoview study. Electronically signed by : Don Hobbs MD 08/07/2022 06:42:13
--- NOTE | 2022-08-06 08:01 | CA_ITS ---
APPROVED REPORT EXAM: Comprehensive 2D, Doppler, and color-flow Echocardiogram Solar Business Developer: Katie Jeffrey CRT Ht: 6 ft 0 in Wt: 235lbs BSA: 2.28 BP: 131/63 mmHg Indications: Chest Pain, Shortness of Breath, Atrial Fibrillation, Hyperlipidemia, Hypertension/HDD, CA,tsking chemo, exsmoker, abn holter 2D Dimensions LVOT 1.87 cm (M/F) 1.5-2.5 M-Mode Dimensions RVDd 3.04 cm (0.9-2.6) LA Diam 4.30 cm (1.9-4.0) LVDd 5.05 cm (3.5-5.7) Ao Diam 4.34 cm (2.0-3.7) LVDs 2.23 cm (3.5-5.7) IVSd 1.65 cm (0.6-1.1) PWd 0.89 cm (0.6-1.1) EF (Teich) 86.10% FS 55.80% EDV (Teich) 121.00 mL TAPSE 1.96 (<1.7) ESV (Teich) 16.80 mL LV Diastology E Decel Time 253.00 (160-240 msec) E/A Ratio 0.80 MED E' 8.10 (< 7 cm/sec) MED A' 10.00 cm/s E'/MED E' Ratio 7.46 (>14) LAT E' 8.30 (<10 cm/sec) LAT A' 8.10 cm/s E/LAT E' Ratio 7.28 (>14) Aortic Valve AI PHT 732.00 ms AO Peak GR. 5.30 mmHg Mitral Valve MV E Max Rao. 60.00 (40-130 cm/s) MV A Velocity 76.00 (40-130 cm/s) E/A Ratio 0.80 MV Decel. Time 253.00 (160-240 ms) MV PHT 74.00 ms Pulmonary Valve PV Peak Velocity 132.00 (50-150 cm/s) Tricuspid Valve TR P. Velocity 237.00 cm/s RAP Estimate 10.00 mmHg RVSP 32.50 mmHg Left Ventricle Left atrium is mildly enlarged, left ventricle is normal size, mild concentric left ventricular hypertrophy, estimated ejection fraction 55% with no regional wall motion abnormality, diastolic parameters are inconclusive. Right Ventricle Right atrium and right ventricle are mildly enlarged with normal contractility. Aortic Valve Aortic valve is minimally thickened and calcified without aortic stenosis, there is mild aortic insufficiency. Mitral Valve Mitral valve has mitral annular calcification, which extends in both anterior posterior mitral leaflet, there is no mitral stenosis, there is mild mitral regurgitation. Tricuspid Valve Tricuspid valve grossly normal, there is mild tricuspid regurgitation tricuspid regurgitation jet velocity is inadequate for calculation of the right ventricular systolic pressure. Pulmonic Valve Pulmonic valve is poorly visualized. Great Vessels Aortic root is normal size. Inferior vena cava is poorly visualized. Pericardium No significant pericardial effusion. Conclusion 1. Biatrial enlargement, normal left ventricular size, mild concentric left ventricular hypertrophy, estimated ejection fraction 55% with no regional wall motion abnormality. Diastolic parameters are inconclusive. 2. Mildly enlarged right ventricle with normal contractility. 3. Mild aortic, mild mitral and tricuspid regurgitation. 4. No significant pericardial effusion noted. 5. Inferior vena cava is poorly visualized. Electronically signed by : Don Hobbs MD 08/06/2022 20:55:18
--- NOTE | 2022-08-06 09:11 | HMH.ITSHM ---
Current Home Medications as stated by this patient Glenn Marti or phone representative. []BUSPIRONE ESCITALOPRAM MELOXICAM ATORVASTATIN TAMSULOSIN FLEXRIL
== END ==
PROVIDERS: PCP Internal Medicine Adolescent Medicine; Visit Provider Nurse Practitioner
DX: D46.9 Myelodysplastic syndrome, unspecified (principal); R00.2 Palpitations; R06.09 Other forms of dyspnea; R07.89 Other chest pain; R94.31 Abnormal electrocardiogram [ECG] [EKG]; Z87.891 Personal history of nicotine dependence
CPT/HCPCS: 78452; 93017; 93306; A9502; J2785

== ENCOUNTER 2022-08-08 08:05 | Outpatient (CLI) | payer MEDICARE, MEDICAID, SELFPAY ==
[2022-08-08 08:09] VITALS: BMI 31.8
--- NOTE | 2022-08-08 08:17 | PC.NURSE ---
0817-collected labs via peripheral stick; pt to oncology appointment.
[2022-08-08 08:25] LABS: Basophils # 0.1 K/mm3 (0-0.2); Basophils % 2.8 % (0.1-2.0); Eosinophils # 0.5 K/mm3 (0.0-0.4); Hematocrit 42.6 % (42.0-52.0); Hemoglobin 13.3 g/dL (14.1-18.0); Lymphocytes # 1.6 K/mm3 (0.7-4.5); Lymphocytes % 46.7 % (10-50); Mean Corpuscular HGB Conc 31.3 g/dL (31.8-35.4); Mean Corpuscular Hemoglobin 33.3 pg (27.0-31.2); Mean Corpuscular Volume 106.2 fl (80-94); Mean Platelet Volume 9.3 fl (7.4-10.4); Monocytes # 0.1 K/mm3 (0.1-1.0); Monocytes % 1.9 % (1.7-9.3); Neutrophils # 1.2 K/mm3 (1.8-7.8); Neutrophils % 34.7 % (37.0-80.0); Platelet Count 130 K/mm3 (142-424); Red Blood Count 4.01 M/mm3 (4.60-6.20); Red Cell Distribution Width 15.3 % (11.5-17.5); White Blood Count 3.4 K/mm3 (4.8-10.8)
[2022-08-08 08:26] LABS: Chloride 105 mmol/L (98-107); Potassium 4.1 mmoL/L (3.5-5.1); Sodium 142 mmol/L (136-145)
[2022-08-08 08:28] LABS: Blood Urea Nitrogen 32 mg/dl (9-20); Creatinine Clearance Estimated 72 mL/min (50-200); Estimated Glomerular Filt Rate 54 ml/min (>60); GFR (African American) 65 ML/MIN (>60)
[2022-08-08 08:29] LABS: Alanine Aminotransferase 15 U/L (12-78); Albumin/Globulin Ratio 1.6 (1.1-1.8); Alkaline Phosphatase 81 U/L (38-126); Anion Gap 11.1 mEq/L (5-15); Aspartate Amino Transferase 25 U/L (17-59); Bilirubin,Total 0.6 mg/dl (0.2-1.3); Calcium 8.8 mg/dl (8.4-10.2); Carbon Dioxide 30 mmol/L (22.0-30.0); Globulin 2.5 g/dL (1.3-3.2); Glucose 112 mg/dl (74-100); Total Protein,Serum 6.5 g/dl (6.3-8.2)
== END 2022-08-08 08:17 | disposition home or self-care (01) ==
LOC: INF 08:06
PROVIDERS: PCP Internal Medicine Adolescent Medicine; Visit Provider Internal Medicine Medical Oncology
DX: D46.9 Myelodysplastic syndrome, unspecified (principal)
CPT/HCPCS: 36415; 80053; 85025

== ENCOUNTER 2022-08-12 08:08 | Outpatient (CLI) | payer MEDICARE, MEDICAID, SELFPAY ==
[2022-08-12 08:50] VITALS: BP 111/55; PULSE 53; RESP 18; TEMP 36.6; O2SAT 96
[2022-08-12 09:15] VITALS: BP 97/54; PULSE 50; RESP 18
[2022-08-12 09:30] VITALS: BP 122/55; PULSE 52; RESP 18
[2022-08-12 09:45] VITALS: BP 122/41; PULSE 52; RESP 18
[2022-08-12 09:55] VITALS: RESP 18
[2022-08-12 10:05] VITALS: BP 138/57; PULSE 49; RESP 18
== END 2022-08-12 10:05 | disposition home or self-care (01) ==
LOC: INF 08:09
PROVIDERS: PCP Internal Medicine Adolescent Medicine; Visit Provider Internal Medicine Medical Oncology
DX: D46.9 Myelodysplastic syndrome, unspecified (principal)
CPT/HCPCS: 96413; J0894

== ENCOUNTER 2022-08-13 08:10 | Outpatient (CLI) | payer MEDICARE, MEDICAID, SELFPAY ==
[2022-08-13 08:45] VITALS: BP 108/53; PULSE 55; RESP 18; TEMP 36.3; O2SAT 99
[2022-08-13 09:15] VITALS: BP 115/57; PULSE 54; RESP 18; TEMP 36.2; O2SAT 99
[2022-08-13 09:55] VITALS: BP 124/58; PULSE 56; RESP 18; TEMP 36.2; O2SAT 99
== END 2022-08-13 09:55 | disposition home or self-care (01) ==
LOC: INF 08:10
PROVIDERS: PCP Internal Medicine Adolescent Medicine; Visit Provider Internal Medicine Medical Oncology
DX: D46.9 Myelodysplastic syndrome, unspecified (principal)
CPT/HCPCS: 96413; J0894

== ENCOUNTER 2022-08-14 08:09 | Outpatient (CLI) | payer MEDICARE, MEDICAID, SELFPAY ==
[2022-08-14 08:55] VITALS: BP 129/59; PULSE 53; RESP 18; TEMP 35.9; O2SAT 98
[2022-08-14 09:15] VITALS: BP 131/66; PULSE 51; RESP 18
[2022-08-14 09:30] VITALS: BP 145/61; PULSE 52; RESP 18
[2022-08-14 09:45] VITALS: BP 139/59; PULSE 51; RESP 18
[2022-08-14 09:58] VITALS: RESP 18
[2022-08-14 10:08] VITALS: BP 137/60; PULSE 49; RESP 18; O2SAT 98
== END 2022-08-14 10:08 | disposition home or self-care (01) ==
LOC: INF 08:10
PROVIDERS: PCP Internal Medicine Adolescent Medicine; Visit Provider Internal Medicine Medical Oncology
DX: D46.9 Myelodysplastic syndrome, unspecified (principal)
CPT/HCPCS: 96413; J0894

== ENCOUNTER 2022-08-15 08:10 | Outpatient (CLI) | payer MEDICARE, MEDICAID, SELFPAY ==
[2022-08-15 08:50] VITALS: BP 118/55; PULSE 57; RESP 18; TEMP 36.7; O2SAT 98
[2022-08-15 09:15] VITALS: BP 123/49; PULSE 52; RESP 18
[2022-08-15 09:30] VITALS: BP 114/51; PULSE 53; RESP 18
[2022-08-15 09:45] VITALS: BP 107/56; PULSE 48; RESP 18
[2022-08-15 09:55] VITALS: RESP 18
[2022-08-15 10:05] VITALS: BP 122/58; PULSE 59; RESP 18
== END 2022-08-15 10:05 | disposition home or self-care (01) ==
LOC: INF 08:11
PROVIDERS: PCP Internal Medicine Adolescent Medicine; Visit Provider Internal Medicine Medical Oncology
DX: D46.9 Myelodysplastic syndrome, unspecified (principal)
CPT/HCPCS: 96413; J0894

== ENCOUNTER 2022-08-16 11:57 | Outpatient (CLI) | payer MEDICARE, MEDICAID, SELFPAY ==
[2022-08-16 12:40] VITALS: BP 126/65; PULSE 56; RESP 16; O2SAT 98
[2022-08-16 12:55] VITALS: BP 127/65; PULSE 55; RESP 16
[2022-08-16 13:10] VITALS: BP 138/64; PULSE 55; RESP 16
[2022-08-16 13:25] VITALS: BP 142/54; PULSE 53; RESP 16
[2022-08-16 13:40] VITALS: BP 152/67; PULSE 54; RESP 16
== END 2022-08-16 13:57 | disposition home or self-care (01) ==
LOC: INF 11:58
PROVIDERS: PCP Internal Medicine Adolescent Medicine; Visit Provider Internal Medicine Medical Oncology
DX: D46.9 Myelodysplastic syndrome, unspecified (principal)
CPT/HCPCS: 96413; J0894

== ENCOUNTER 2022-09-12 08:40 | Outpatient (CLI) | payer MEDICARE, MEDICAID, SELFPAY ==
[2022-09-12 08:44] VITALS: BMI 31.8
[2022-09-12 08:59] LABS: Basophils # 0.2 K/mm3 (0-0.2); Basophils % 5.4 % (0.1-2.0); Eosinophils # 0.2 K/mm3 (0.0-0.4); Eosinophils % 5.3 % (0.1-12.0); Hematocrit 43.6 % (42.0-52.0); Hemoglobin 13.5 g/dL (14.1-18.0); Lymphocytes # 1.2 K/mm3 (0.7-4.5); Lymphocytes % 41.5 % (10-50); Mean Corpuscular Hemoglobin 33.4 pg (27.0-31.2); Mean Corpuscular Volume 107.9 fl (80-94); Mean Platelet Volume 9.2 fl (7.4-10.4); Monocytes # 0.2 K/mm3 (0.1-1.0); Monocytes % 6.6 % (1.7-9.3); Neutrophils # 1.4 K/mm3 (1.8-7.8); Neutrophils % 46.6 % (37.0-80.0); Platelet Count 286 K/mm3 (142-424); Red Blood Count 4.04 M/mm3 (4.60-6.20); Red Cell Distribution Width 15.3 % (11.5-17.5)
[2022-09-12 09:06] LABS: Chloride 104 mmol/L (98-107); Potassium 3.8 mmoL/L (3.5-5.1); Sodium 140 mmol/L (136-145)
[2022-09-12 09:09] LABS: Alanine Aminotransferase 18 U/L (12-78); Albumin Level 4.1 g/dl (3.5-5.0); Albumin/Globulin Ratio 1.5 (1.1-1.8); Alkaline Phosphatase 78 U/L (38-126); Anion Gap 10.8 mEq/L (5-15); Aspartate Amino Transferase 29 U/L (17-59); Bilirubin,Total 0.5 mg/dl (0.2-1.3); Blood Urea Nitrogen 24 mg/dl (9-20); Calcium 9.7 mg/dl (8.4-10.2); Carbon Dioxide 29 mmol/L (22.0-30.0); Creatinine Clearance Estimated 78 mL/min (50-200); Estimated Glomerular Filt Rate 59 ml/min (>60); GFR (African American) 71 ML/MIN (>60); Globulin 2.8 g/dL (1.3-3.2); Glucose 99 mg/dl (74-100); Total Protein,Serum 6.9 g/dl (6.3-8.2)
== END 2022-09-12 09:11 | disposition home or self-care (01) ==
LOC: INF 08:41
PROVIDERS: PCP Internal Medicine Adolescent Medicine; Visit Provider Internal Medicine Medical Oncology
DX: D46.9 Myelodysplastic syndrome, unspecified (principal)
CPT/HCPCS: 36415; 80053; 85025

== ENCOUNTER 2022-09-16 08:08 | Outpatient (CLI) | payer MEDICARE, MEDICAID, SELFPAY ==
[2022-09-16 09:00] VITALS: BP 116/65; PULSE 58; RESP 18; TEMP 36.5; O2SAT 98
[2022-09-16 09:15] VITALS: BP 114/60; PULSE 54; RESP 18; O2SAT 98
[2022-09-16 09:30] VITALS: BP 118/65; PULSE 61; RESP 18; TEMP 36.4; O2SAT 98
[2022-09-16 10:07] VITALS: BP 126/61; PULSE 51; RESP 18
== END 2022-09-16 10:15 | disposition home or self-care (01) ==
LOC: INF 08:09
PROVIDERS: PCP Internal Medicine Adolescent Medicine; Visit Provider Internal Medicine Medical Oncology
DX: D46.9 Myelodysplastic syndrome, unspecified (principal)
CPT/HCPCS: 96413; J0894

== ENCOUNTER 2022-09-17 08:07 | Outpatient (CLI) | payer MEDICARE, MEDICAID, SELFPAY ==
[2022-09-17 08:50] VITALS: BP 131/66; PULSE 54; RESP 18; TEMP 36.5; O2SAT 97
[2022-09-17 09:20] VITALS: BP 138/66; PULSE 56; RESP 18; O2SAT 97
[2022-09-17 09:50] VITALS: BP 142/69; PULSE 55; RESP 18; TEMP 36.5; O2SAT 97
[2022-09-17 09:56] VITALS: BP 141/70; PULSE 55; RESP 18; O2SAT 98
[2022-09-17 10:10] VITALS: BP 141/72; PULSE 53; RESP 18; TEMP 36.5; O2SAT 98
== END 2022-09-17 10:11 | disposition home or self-care (01) ==
LOC: INF 08:07
PROVIDERS: PCP Internal Medicine Adolescent Medicine; Visit Provider Internal Medicine Medical Oncology
DX: D46.9 Myelodysplastic syndrome, unspecified (principal)
CPT/HCPCS: 96413; J0894

== ENCOUNTER 2022-09-18 08:07 | Outpatient (CLI) | payer MEDICARE, MEDICAID, SELFPAY ==
[2022-09-18 08:50] VITALS: BP 136/65; PULSE 59; RESP 18; TEMP 36.4; O2SAT 99
[2022-09-18 09:20] VITALS: BP 136/63; PULSE 61; RESP 18; TEMP 36.4; O2SAT 99
[2022-09-18 09:50] VITALS: BP 131/64; PULSE 63; RESP 18; O2SAT 99
[2022-09-18 10:13] VITALS: BP 126/54; PULSE 58; RESP 18; TEMP 36.4; O2SAT 99
== END 2022-09-18 10:13 | disposition home or self-care (01) ==
LOC: INF 08:08
PROVIDERS: PCP Internal Medicine Adolescent Medicine; Visit Provider Internal Medicine Medical Oncology
DX: D46.9 Myelodysplastic syndrome, unspecified (principal)
CPT/HCPCS: 96365; 96413; J0894

== ENCOUNTER 2022-09-19 08:00 | Outpatient (CLI) | payer MEDICARE, MEDICAID, SELFPAY ==
[2022-09-19 08:51] VITALS: BP 148/70; PULSE 58; RESP 18; TEMP 36.7; O2SAT 96
[2022-09-19 09:20] VITALS: BP 132/72; PULSE 60; RESP 18; TEMP 36.7; O2SAT 96
[2022-09-19 09:50] VITALS: BP 152/74; PULSE 56; RESP 18; O2SAT 96
[2022-09-19 10:07] VITALS: BP 135/71; PULSE 58; RESP 18; TEMP 36.7; O2SAT 97
[2022-09-19 10:20] VITALS: BP 142/71; PULSE 61; RESP 18; O2SAT 97
== END 2022-09-19 10:20 | disposition home or self-care (01) ==
PROVIDERS: PCP Internal Medicine Adolescent Medicine; Visit Provider Internal Medicine Medical Oncology
DX: D46.9 Myelodysplastic syndrome, unspecified (principal)
CPT/HCPCS: 96413; J0894

== ENCOUNTER 2022-09-20 08:03 | Outpatient (CLI) | payer MEDICARE, MEDICAID, SELFPAY ==
[2022-09-20 08:50] VITALS: BP 115/73; PULSE 64; RESP 18; O2SAT 97
[2022-09-20 09:05] VITALS: BP 115/69; PULSE 64; RESP 16
[2022-09-20 09:20] VITALS: BP 143/88; PULSE 62; RESP 16
[2022-09-20 09:35] VITALS: BP 141/59; PULSE 61; RESP 16
[2022-09-20 09:50] VITALS: BP 141/74; PULSE 60; RESP 16
== END 2022-09-20 10:10 | disposition home or self-care (01) ==
LOC: INF 08:04
PROVIDERS: PCP Internal Medicine Adolescent Medicine; Visit Provider Internal Medicine Medical Oncology
DX: D46.9 Myelodysplastic syndrome, unspecified (principal)
CPT/HCPCS: 96413; J0894

== ENCOUNTER 2022-10-10 08:30 | Outpatient (CLI) | payer MEDICARE, MEDICAID, SELFPAY ==
[2022-10-10 08:33] VITALS: BMI 31.8
[2022-10-10 08:53] LABS: Basophils # 0.1 K/mm3 (0-0.2); Eosinophils # 0.2 K/mm3 (0.0-0.4); Eosinophils % 7.5 % (0.1-12.0); Hematocrit 40.6 % (42.0-52.0); Hemoglobin 13.3 g/dL (14.1-18.0); Lymphocytes # 1.3 K/mm3 (0.7-4.5); Lymphocytes % 50.3 % (10-50); Mean Corpuscular HGB Conc 32.7 g/dL (31.8-35.4); Mean Corpuscular Hemoglobin 33.5 pg (27.0-31.2); Mean Corpuscular Volume 102.4 fl (80-94); Mean Platelet Volume 9.4 fl (7.4-10.4); Monocytes # 0.2 K/mm3 (0.1-1.0); Neutrophils # 0.9 K/mm3 (1.8-7.8); Neutrophils % 34.2 % (37.0-80.0); Platelet Count 149 K/mm3 (142-424); Red Blood Count 3.96 M/mm3 (4.60-6.20); Red Cell Distribution Width 15.8 % (11.5-17.5); White Blood Count 2.7 K/mm3 (4.8-10.8)
[2022-10-10 08:58] LABS: Chloride 106 mmol/L (98-107); Potassium 3.9 mmoL/L (3.5-5.1); Sodium 140 mmol/L (136-145)
[2022-10-10 09:01] LABS: Alanine Aminotransferase 15 U/L (12-78); Albumin/Globulin Ratio 1.5 (1.1-1.8); Alkaline Phosphatase 79 U/L (38-126); Anion Gap 8.9 mEq/L (5-15); Aspartate Amino Transferase 25 U/L (17-59); Bilirubin,Total 0.6 mg/dl (0.2-1.3); Blood Urea Nitrogen 24 mg/dl (9-20); Carbon Dioxide 29 mmol/L (22.0-30.0); Creatinine Clearance Estimated 72 mL/min (50-200); Estimated Glomerular Filt Rate 54 ml/min (>60); GFR (African American) 65 ML/MIN (>60); Globulin 2.7 g/dL (1.3-3.2); Total Protein,Serum 6.7 g/dl (6.3-8.2)
[2022-10-10 09:02] LABS: Calcium 8.9 mg/dl (8.4-10.2); Glucose 107 mg/dl (74-100)
[2022-10-10 09:03] LABS: MANUAL DIFFERENTIAL MANUAL DIFFERENTIAL (MANUAL DIFF)
[2022-10-10 09:32] LABS: Eosinophils % 8 % (0-3); Lymphocytes % 54 % (10-50); Monocytes % 5 % (2-9); Neutrophils % 33 % (42-76); Total Cells Counted 100
[2022-10-10 09:33] LABS: Platelet Estimate Slight Decrease; RBC Morphology Normal
== END 2022-10-10 09:00 | disposition home or self-care (01) ==
LOC: INF 08:30
PROVIDERS: PCP Internal Medicine Adolescent Medicine; Visit Provider Internal Medicine Medical Oncology
DX: D46.9 Myelodysplastic syndrome, unspecified (principal)
CPT/HCPCS: 36415; 80053; 85007; 85025

== ENCOUNTER 2022-10-14 08:03 | Outpatient (CLI) | payer MEDICARE, MEDICAID, SELFPAY ==
[2022-10-14 08:11] VITALS: BMI 31.8
[2022-10-14 09:05] VITALS: BP 112/64; PULSE 57; RESP 18; TEMP 36.3; O2SAT 95
[2022-10-14 10:15] VITALS: BP 136/74; PULSE 53; RESP 18
== END 2022-10-14 10:15 | disposition home or self-care (01) ==
LOC: INF 08:04
PROVIDERS: PCP Internal Medicine Adolescent Medicine; Visit Provider Internal Medicine Medical Oncology
DX: Z51.11 Encounter for antineoplastic chemotherapy (principal); D46.9 Myelodysplastic syndrome, unspecified
CPT/HCPCS: 96413; J0894

== ENCOUNTER 2022-10-15 08:11 | Outpatient (CLI) | payer MEDICARE, MEDICAID, SELFPAY ==
[2022-10-15 08:22] VITALS: BP 131/71; PULSE 65; RESP 18; TEMP 36.2; O2SAT 97
[2022-10-15 08:42] VITALS: BP 116/58; PULSE 60; RESP 18; O2SAT 97
== END 2022-10-15 10:02 | disposition home or self-care (01) ==
LOC: INF 08:12
PROVIDERS: PCP Internal Medicine Adolescent Medicine; Visit Provider Internal Medicine Medical Oncology
DX: Z51.11 Encounter for antineoplastic chemotherapy (principal); D46.9 Myelodysplastic syndrome, unspecified
CPT/HCPCS: 96413; J0894

== ENCOUNTER 2022-10-16 08:10 | Outpatient (CLI) | payer MEDICARE, MEDICAID, SELFPAY ==
[2022-10-16 08:50] VITALS: BP 104/64; PULSE 66; RESP 18; O2SAT 97
[2022-10-16 10:01] VITALS: BP 135/66; PULSE 56; RESP 18
== END 2022-10-16 10:01 | disposition home or self-care (01) ==
LOC: INF 08:11
PROVIDERS: PCP Internal Medicine Adolescent Medicine; Visit Provider Internal Medicine Medical Oncology
DX: D46.9 Myelodysplastic syndrome, unspecified (principal)
CPT/HCPCS: 96413; J0894

== ENCOUNTER 2022-10-17 08:05 | Outpatient (CLI) | payer MEDICARE, MEDICAID, SELFPAY ==
[2022-10-17 08:48] VITALS: BP 107/66; PULSE 64; RESP 18; TEMP 36.3; O2SAT 97
[2022-10-17 10:00] VITALS: BP 145/78; PULSE 55; RESP 18
== END 2022-10-17 10:00 | disposition home or self-care (01) ==
LOC: INF 08:05
PROVIDERS: PCP Internal Medicine Adolescent Medicine; Visit Provider Internal Medicine Medical Oncology
DX: Z51.11 Encounter for antineoplastic chemotherapy (principal); D46.9 Myelodysplastic syndrome, unspecified
CPT/HCPCS: 96413; J0894

== ENCOUNTER 2022-10-18 08:02 | Outpatient (CLI) | payer MEDICARE, MEDICAID, SELFPAY ==
[2022-10-18 08:46] VITALS: BP 108/65; PULSE 63; RESP 18; TEMP 36.7; O2SAT 96
[2022-10-18 09:55] VITALS: BP 120/69; PULSE 67; RESP 18
== END 2022-10-18 09:55 | disposition home or self-care (01) ==
LOC: INF 08:03
PROVIDERS: PCP Internal Medicine Adolescent Medicine; Visit Provider Internal Medicine Medical Oncology
DX: Z51.11 Encounter for antineoplastic chemotherapy (principal); D46.9 Myelodysplastic syndrome, unspecified
CPT/HCPCS: 96413; J0894

== ENCOUNTER 2022-11-07 08:49 | Outpatient (CLI) | payer MEDICARE, MEDICAID, SELFPAY ==
[2022-11-07 09:00] VITALS: BMI 31.8
[2022-11-07 09:20] LABS: Basophils # 0.1 K/mm3 (0-0.2); Basophils % 2.8 % (0.1-2.0); Eosinophils # 0.4 K/mm3 (0.0-0.4); Eosinophils % 12.7 % (0.1-12.0); Hematocrit 39.8 % (42.0-52.0); Hemoglobin 12.9 g/dL (14.1-18.0); Lymphocytes # 1.4 K/mm3 (0.7-4.5); Mean Corpuscular HGB Conc 32.4 g/dL (31.8-35.4); Mean Corpuscular Hemoglobin 33.1 pg (27.0-31.2); Mean Corpuscular Volume 102.2 fl (80-94); Mean Platelet Volume 9.4 fl (7.4-10.4); Monocytes # 0.1 K/mm3 (0.1-1.0); Monocytes % 3.7 % (1.7-9.3); Neutrophils % 33.9 % (37.0-80.0); Platelet Count 122 K/mm3 (142-424); Red Cell Distribution Width 16.4 % (11.5-17.5); White Blood Count 2.9 K/mm3 (4.8-10.8)
[2022-11-07 09:31] LABS: Chloride 108 mmol/L (98-107); Potassium 4.1 mmoL/L (3.5-5.1); Sodium 142 mmol/L (136-145)
[2022-11-07 09:33] LABS: Alanine Aminotransferase 17 U/L (12-78); Alkaline Phosphatase 67 U/L (38-126); Aspartate Amino Transferase 25 U/L (17-59); Bilirubin,Total 0.6 mg/dl (0.2-1.3); Blood Urea Nitrogen 22 mg/dl (9-20); Creatinine Clearance Estimated 78 mL/min (50-200); Estimated Glomerular Filt Rate 59 ml/min (>60); GFR (African American) 71 ML/MIN (>60)
[2022-11-07 09:34] LABS: Albumin/Globulin Ratio 1.4 (1.1-1.8); Anion Gap 9.1 mEq/L (5-15); Calcium 8.9 mg/dl (8.4-10.2); Carbon Dioxide 29 mmol/L (22.0-30.0); Chol/HDL Ratio 3.6 (1-3.5); Cholesterol 139 mg/dl (140-200); Globulin 2.9 g/dL (1.3-3.2); Glucose 96 mg/dl (74-100); HDL Cholesterol 39 mg/dl (40-60); Total Protein,Serum 6.9 g/dl (6.3-8.2); Triglycerides 102 mg/dl (30-150); VLDL Cholesterol 20 mg/dL (0-40)
[2022-11-07 09:45] LABS: Direct LDL Cholesterol 59.81 mg/dL (100-129)
--- NOTE | 2022-11-07 11:40 | PC.NURSE ---
0907 - BLOOD DRAWN FROM LEFT AC TO CHECK LABS FOR DR HERRERA AND MARC ROJO
== END 2022-11-07 09:10 | disposition home or self-care (01) ==
PROVIDERS: PCP Internal Medicine Adolescent Medicine; Referring Provider Nurse Practitioner Family; Visit Provider Internal Medicine Medical Oncology
DX: D46.9 Myelodysplastic syndrome, unspecified (principal); E78.2 Mixed hyperlipidemia
CPT/HCPCS: 36415; 80053; 80061; 85025

== ENCOUNTER 2022-11-11 08:17 | Outpatient (CLI) | payer MEDICARE, MEDICAID, SELFPAY ==
[2022-11-11 08:35] VITALS: BP 112/56; PULSE 71; RESP 18; TEMP 36.3; O2SAT 98
[2022-11-11 08:55] VITALS: BP 124/52; PULSE 75; RESP 18; O2SAT 98
[2022-11-11 09:25] VITALS: BP 119/51; PULSE 78; RESP 18; O2SAT 98
[2022-11-11 10:10] VITALS: BP 147/59; PULSE 72; RESP 18; O2SAT 97
== END 2022-11-11 10:15 | disposition home or self-care (01) ==
LOC: INF 08:17
PROVIDERS: PCP Internal Medicine Adolescent Medicine; Visit Provider Internal Medicine Medical Oncology
DX: D46.9 Myelodysplastic syndrome, unspecified (principal); Z51.11 Encounter for antineoplastic chemotherapy
CPT/HCPCS: 96413; J0894

== ENCOUNTER 2022-11-12 09:39 | Outpatient (CLI) | payer MEDICARE, MEDICAID, SELFPAY ==
[2022-11-12 10:18] VITALS: BP 121/61; PULSE 62; RESP 18; O2SAT 98
[2022-11-12 11:30] VITALS: BP 138/59; PULSE 68; RESP 18
== END 2022-11-12 11:30 | disposition home or self-care (01) ==
LOC: INF 09:40
PROVIDERS: PCP Internal Medicine Adolescent Medicine; Visit Provider Internal Medicine Medical Oncology
DX: Z51.11 Encounter for antineoplastic chemotherapy (principal); D46.9 Myelodysplastic syndrome, unspecified
CPT/HCPCS: 96413; J0894

== ENCOUNTER 2022-11-13 08:02 | Outpatient (CLI) | payer MEDICARE, MEDICAID, SELFPAY ==
[2022-11-13 08:39] VITALS: BP 110/48; PULSE 65; RESP 18; TEMP 36.4; O2SAT 99
[2022-11-13 09:15] VITALS: BP 112/52; PULSE 63; RESP 18; O2SAT 99
[2022-11-13 09:56] VITALS: BP 129/81; PULSE 58; RESP 18; TEMP 36.4; O2SAT 99
== END 2022-11-13 09:56 | disposition home or self-care (01) ==
LOC: INF 08:03
PROVIDERS: PCP Internal Medicine Adolescent Medicine; Visit Provider Internal Medicine Medical Oncology
DX: Z51.11 Encounter for antineoplastic chemotherapy (principal); D46.9 Myelodysplastic syndrome, unspecified
CPT/HCPCS: 96413; J0894

== ENCOUNTER 2022-11-14 08:12 | Outpatient (CLI) | payer MEDICARE, MEDICAID, SELFPAY ==
[2022-11-14 08:26] VITALS: BP 95/49; PULSE 60; RESP 18; O2SAT 99
[2022-11-14 09:30] VITALS: BP 98/53; PULSE 64; RESP 18; O2SAT 99
[2022-11-14 10:10] VITALS: BP 100/52; PULSE 62; RESP 18; TEMP 36.5; O2SAT 100
== END 2022-11-14 10:10 | disposition home or self-care (01) ==
LOC: INF 08:13
PROVIDERS: PCP Internal Medicine Adolescent Medicine; Visit Provider Internal Medicine Medical Oncology
DX: Z51.11 Encounter for antineoplastic chemotherapy (principal); D46.9 Myelodysplastic syndrome, unspecified
CPT/HCPCS: 96413; J0894

== ENCOUNTER 2022-11-15 08:09 | Outpatient (CLI) | payer MEDICARE, MEDICAID, SELFPAY ==
[2022-11-15 08:50] VITALS: BP 90/46; PULSE 62; RESP 16; TEMP 36.2; O2SAT 96
[2022-11-15 09:05] VITALS: BP 110/58; PULSE 63; RESP 16
[2022-11-15 09:20] VITALS: BP 87/53; PULSE 57; RESP 16
[2022-11-15 09:35] VITALS: BP 121/69; PULSE 57; RESP 16
[2022-11-15 09:50] VITALS: BP 123/74; PULSE 54; RESP 16
== END 2022-11-15 10:10 | disposition home or self-care (01) ==
LOC: INF 08:10
PROVIDERS: PCP Internal Medicine Adolescent Medicine; Visit Provider Internal Medicine Medical Oncology
DX: Z51.11 Encounter for antineoplastic chemotherapy (principal); D46.9 Myelodysplastic syndrome, unspecified
CPT/HCPCS: 96413; J0894

== ENCOUNTER 2022-12-09 08:01 | Outpatient (CLI) | payer MEDICARE, MEDICAID, SELFPAY ==
[2022-12-09 08:10] VITALS: BMI 30.5
[2022-12-09 08:31] LABS: Basophils # 0.1 K/mm3 (0-0.2); Chloride 110 mmol/L (98-107); Eosinophils # 0.2 K/mm3 (0.0-0.4); Eosinophils % 6.8 % (0.1-12.0); Hematocrit 42.5 % (42.0-52.0); Hemoglobin 13.7 g/dL (14.1-18.0); Lymphocytes # 1.4 K/mm3 (0.7-4.5); Lymphocytes % 62.2 % (10-50); Mean Corpuscular HGB Conc 32.3 g/dL (31.8-35.4); Mean Corpuscular Hemoglobin 33.1 pg (27.0-31.2); Mean Corpuscular Volume 102.4 fl (80-94); Mean Platelet Volume 8.7 fl (7.4-10.4); Monocytes # 0.1 K/mm3 (0.1-1.0); Monocytes % 3.1 % (1.7-9.3); Neutrophils # 0.7 K/mm3 (1.8-7.8); Neutrophils % 27.9 % (37.0-80.0); Platelet Count 144 K/mm3 (142-424); Red Blood Count 4.14 M/mm3 (4.60-6.20); Red Cell Distribution Width 15.9 % (11.5-17.5); White Blood Count 2.3 K/mm3 (4.8-10.8)
[2022-12-09 08:32] LABS: Potassium 3.8 mmoL/L (3.5-5.1); Sodium 143 mmol/L (136-145)
[2022-12-09 08:33] LABS: MANUAL DIFFERENTIAL MANUAL DIFFERENTIAL (MANUAL DIFF)
[2022-12-09 08:34] LABS: Alanine Aminotransferase 22 U/L (12-78); Alkaline Phosphatase 77 U/L (38-126); Anion Gap 7.8 mEq/L (5-15); Aspartate Amino Transferase 31 U/L (17-59); Bilirubin,Total 0.6 mg/dl (0.2-1.3); Blood Urea Nitrogen 24 mg/dl (9-20); Carbon Dioxide 29 mmol/L (22.0-30.0); Creatinine Clearance Estimated 81 mL/min (50-200); Estimated Glomerular Filt Rate 65 ml/min (>60); GFR (African American) 79 ML/MIN (>60)
[2022-12-09 08:35] LABS: Albumin Level 4.1 g/dl (3.5-5.0); Albumin/Globulin Ratio 1.4 (1.1-1.8); Calcium 8.8 mg/dl (8.4-10.2); Glucose 118 mg/dl (74-100); Total Protein,Serum 7.1 g/dl (6.3-8.2)
[2022-12-09 08:45] LABS: Lymphocytes % 63 % (10-50); Neutrophils % 37 % (42-76); Platelet Estimate Slight Decrease; RBC Morphology Normal; Total Cells Counted 100
[2022-12-09 09:48] VITALS: BP 129/79; PULSE 72; RESP 18; TEMP 36.6; O2SAT 95
[2022-12-09 11:00] VITALS: BP 141/65; PULSE 58; RESP 18
== END 2022-12-09 11:00 | disposition home or self-care (01) ==
LOC: INF 08:01
PROVIDERS: PCP Internal Medicine Adolescent Medicine; Visit Provider Internal Medicine Medical Oncology
DX: D46.9 Myelodysplastic syndrome, unspecified (principal)
CPT/HCPCS: 80053; 85007; 85025; 96413; J0894

== ENCOUNTER 2022-12-10 08:00 | Outpatient (CLI) | payer MEDICARE, MEDICAID, SELFPAY ==
[2022-12-10 08:35] VITALS: BP 103/56; PULSE 60; RESP 18; TEMP 36.6; O2SAT 95
[2022-12-10 09:00] VITALS: BP 125/62; PULSE 58; RESP 18; O2SAT 99
[2022-12-10 09:35] VITALS: BP 136/60; PULSE 54; RESP 18; O2SAT 99
[2022-12-10 09:50] VITALS: BP 130/63; PULSE 61; RESP 18; O2SAT 99
== END 2022-12-10 09:50 | disposition home or self-care (01) ==
LOC: INF 08:01
PROVIDERS: PCP Internal Medicine Adolescent Medicine; Visit Provider Internal Medicine Medical Oncology
DX: D46.9 Myelodysplastic syndrome, unspecified (principal)
CPT/HCPCS: 96413; J0894

== ENCOUNTER 2022-12-11 08:01 | Outpatient (CLI) | payer MEDICARE, MEDICAID, SELFPAY ==
[2022-12-11 08:45] VITALS: BP 113/64; PULSE 60; RESP 18; TEMP 36.3; O2SAT 96
[2022-12-11 09:15] VITALS: BP 120/68; PULSE 61; RESP 18; O2SAT 96
[2022-12-11 09:55] VITALS: BP 138/67; PULSE 64; RESP 18; O2SAT 97
== END 2022-12-11 09:55 | disposition home or self-care (01) ==
LOC: INF 08:02
PROVIDERS: PCP Internal Medicine Adolescent Medicine; Visit Provider Internal Medicine Medical Oncology
DX: D46.9 Myelodysplastic syndrome, unspecified (principal)
CPT/HCPCS: 96413; J0894

== ENCOUNTER 2022-12-12 08:01 | Outpatient (CLI) | payer MEDICARE, MEDICAID, SELFPAY ==
[2022-12-12 08:10] VITALS: BP 92/62; PULSE 70; RESP 18; TEMP 36.1; O2SAT 97
[2022-12-12 08:58] VITALS: BP 107/68; PULSE 54; RESP 18; O2SAT 97
[2022-12-12 09:28] VITALS: BP 110/70; PULSE 56; RESP 18; O2SAT 97
[2022-12-12 10:05] VITALS: BP 125/75; PULSE 52; RESP 18; O2SAT 97
== END 2022-12-12 10:05 | disposition home or self-care (01) ==
LOC: INF 08:02
PROVIDERS: PCP Internal Medicine Adolescent Medicine; Visit Provider Internal Medicine Medical Oncology
DX: D46.9 Myelodysplastic syndrome, unspecified (principal)
CPT/HCPCS: 96413; J0894

== ENCOUNTER 2022-12-13 08:03 | Outpatient (CLI) | payer MEDICARE, MEDICAID, SELFPAY ==
[2022-12-13 08:42] VITALS: BP 122/64; PULSE 68; RESP 18; TEMP 36.6; O2SAT 97
[2022-12-13 09:59] VITALS: BP 139/76; PULSE 72; RESP 18; O2SAT 97
== END 2022-12-13 09:59 | disposition home or self-care (01) ==
LOC: INF 08:04
PROVIDERS: PCP Internal Medicine Adolescent Medicine; Visit Provider Internal Medicine Medical Oncology
DX: D46.9 Myelodysplastic syndrome, unspecified (principal)
CPT/HCPCS: 96413; J0894

== ENCOUNTER 2023-01-03 09:17 | Outpatient (CLI) | payer MEDICARE, MEDICAID, SELFPAY ==
[2023-01-03 09:22] VITALS: BMI 32.4
--- NOTE | 2023-01-03 09:25 | PC.NURSE ---
0925-collected labs via venipuncture with butterfly; pt to oncology appointment
[2023-01-03 09:40] LABS: Basophils # 0.1 K/mm3 (0-0.2); Basophils % 2.8 % (0.1-2.0); Eosinophils # 0.2 K/mm3 (0.0-0.4); Eosinophils % 8.9 % (0.1-12.0); Hematocrit 37.9 % (42.0-52.0); Hemoglobin 12.7 g/dL (14.1-18.0); Lymphocytes # 1.1 K/mm3 (0.7-4.5); Lymphocytes % 54.1 % (10-50); Mean Corpuscular HGB Conc 33.5 g/dL (31.8-35.4); Mean Corpuscular Hemoglobin 34.3 pg (27.0-31.2); Mean Corpuscular Volume 102.1 fl (80-94); Mean Platelet Volume 9.9 fl (7.4-10.4); Monocytes # 0.1 K/mm3 (0.1-1.0); Monocytes % 3.5 % (1.7-9.3); Neutrophils # 0.6 K/mm3 (1.8-7.8); Neutrophils % 30.7 % (37.0-80.0); Platelet Count 97 K/mm3 (142-424); Red Blood Count 3.71 M/mm3 (4.60-6.20); Red Cell Distribution Width 16.3 % (11.5-17.5); White Blood Count 2.1 K/mm3 (4.8-10.8)
[2023-01-03 09:50] LABS: Alanine Aminotransferase 15 U/L (12-78); Albumin Level 3.5 g/dl (3.5-5.0); Albumin/Globulin Ratio 1.4 (1.1-1.8); Alkaline Phosphatase 73 U/L (38-126); Aspartate Amino Transferase 25 U/L (17-59); Bilirubin,Total 0.6 mg/dl (0.2-1.3); Blood Urea Nitrogen 25 mg/dl (9-20); Calcium 8.3 mg/dl (8.4-10.2); Carbon Dioxide 28 mmol/L (22.0-30.0); Chloride 106 mmol/L (98-107); Creatinine Clearance Estimated 86 mL/min (50-200); Estimated Glomerular Filt Rate 65 ml/min (>60); GFR (African American) 79 ML/MIN (>60); Globulin 2.5 g/dL (1.3-3.2); Glucose 81 mg/dl (74-100); Sodium 138 mmol/L (136-145)
[2023-01-03 09:58] LABS: MANUAL DIFFERENTIAL MANUAL DIFFERENTIAL (MANUAL DIFF)
[2023-01-03 10:26] LABS: Eosinophils % 1 % (0-3); Lymphocytes % 51 % (10-50); Monocytes % 3 % (2-9); Neutrophils % 45 % (42-76); Total Cells Counted 100
[2023-01-03 10:27] LABS: Hypochromasia 1+; Macrocytosis 1+; Platelet Estimate Slight Decrease
== END 2023-01-03 09:29 | disposition home or self-care (01) ==
LOC: INF 09:18
PROVIDERS: PCP Internal Medicine Adolescent Medicine; Visit Provider Internal Medicine Medical Oncology
DX: D46.9 Myelodysplastic syndrome, unspecified (principal)
CPT/HCPCS: 36415; 80053; 85007; 85025

== ENCOUNTER 2023-01-06 08:10 | Outpatient (CLI) | payer MEDICARE, MEDICAID, SELFPAY ==
[2023-01-06 08:30] VITALS: BP 115/51; PULSE 58; RESP 18; TEMP 37; O2SAT 98
[2023-01-06 08:54] VITALS: BP 110/53; PULSE 56; RESP 18; O2SAT 97
[2023-01-06 09:24] VITALS: BP 109/58; PULSE 57; RESP 18; O2SAT 97
[2023-01-06 10:10] VITALS: BP 132/71; PULSE 57; RESP 18; O2SAT 98
== END 2023-01-06 10:10 | disposition home or self-care (01) ==
LOC: INF 08:11
PROVIDERS: PCP Internal Medicine Adolescent Medicine; Visit Provider Internal Medicine Medical Oncology
DX: D46.9 Myelodysplastic syndrome, unspecified (principal); Z51.11 Encounter for antineoplastic chemotherapy
CPT/HCPCS: 96413; J0894

== ENCOUNTER 2023-01-07 08:10 | Outpatient (CLI) | payer MEDICARE, MEDICAID, SELFPAY ==
[2023-01-07 08:50] VITALS: BP 120/54; PULSE 61; RESP 18; O2SAT 97
[2023-01-07 09:05] VITALS: BP 131/58; PULSE 56; RESP 18
[2023-01-07 09:20] VITALS: BP 125/63; PULSE 57; RESP 18
[2023-01-07 09:35] VITALS: BP 145/67; PULSE 67; RESP 18
[2023-01-07 10:05] VITALS: BP 140/70; PULSE 53; RESP 18
== END 2023-01-07 10:05 | disposition home or self-care (01) ==
LOC: INF 08:11
PROVIDERS: PCP Internal Medicine Adolescent Medicine; Visit Provider Internal Medicine Medical Oncology
DX: Z51.11 Encounter for antineoplastic chemotherapy (principal); D64.9 Anemia, unspecified
CPT/HCPCS: 96413; J0894

== ENCOUNTER 2023-01-08 08:03 | Outpatient (CLI) | payer MEDICARE, MEDICAID, SELFPAY ==
[2023-01-08 08:48] VITALS: BP 126/58; PULSE 59; RESP 18; TEMP 36.7; O2SAT 59
[2023-01-08 09:15] VITALS: BP 128/67; PULSE 60; RESP 18; TEMP 36.8; O2SAT 97
[2023-01-08 09:45] VITALS: BP 132/68; PULSE 63; RESP 18; O2SAT 97
== END 2023-01-08 10:00 | disposition home or self-care (01) ==
LOC: INF 08:03
PROVIDERS: PCP Internal Medicine Adolescent Medicine; Visit Provider Internal Medicine Medical Oncology
DX: Z51.11 Encounter for antineoplastic chemotherapy (principal); D46.9 Myelodysplastic syndrome, unspecified
CPT/HCPCS: 96413; J0894

== ENCOUNTER 2023-01-09 08:01 | Outpatient (CLI) | payer MEDICARE, MEDICAID, SELFPAY ==
[2023-01-09 08:40] VITALS: BP 90/60; PULSE 62; RESP 18; O2SAT 98
[2023-01-09 08:55] VITALS: BP 132/50; PULSE 58; RESP 16
[2023-01-09 09:10] VITALS: BP 145/68; PULSE 57; RESP 16
[2023-01-09 09:25] VITALS: BP 145/70; PULSE 56; RESP 16
[2023-01-09 09:40] VITALS: BP 128/96; PULSE 57; RESP 16
== END 2023-01-09 09:55 | disposition home or self-care (01) ==
LOC: INF 08:02
PROVIDERS: PCP Internal Medicine Adolescent Medicine; Visit Provider Internal Medicine Medical Oncology
DX: Z51.11 Encounter for antineoplastic chemotherapy (principal); D46.9 Myelodysplastic syndrome, unspecified
CPT/HCPCS: 96413; J0894

== ENCOUNTER 2023-01-10 08:04 | Outpatient (CLI) | payer MEDICARE, MEDICAID, SELFPAY ==
[2023-01-10 08:45] VITALS: BP 142/61; PULSE 55; RESP 16; TEMP 36.3; O2SAT 99
[2023-01-10 09:00] VITALS: BP 145/78; PULSE 54; RESP 16
[2023-01-10 09:15] VITALS: BP 161/76; PULSE 53; RESP 16
[2023-01-10 09:30] VITALS: BP 163/82; PULSE 52; RESP 16
[2023-01-10 09:45] VITALS: BP 160/69; PULSE 53; RESP 16
== END 2023-01-10 10:05 | disposition home or self-care (01) ==
LOC: INF 08:05
PROVIDERS: PCP Internal Medicine Adolescent Medicine; Visit Provider Internal Medicine Medical Oncology
DX: Z51.11 Encounter for antineoplastic chemotherapy (principal); D46.9 Myelodysplastic syndrome, unspecified
CPT/HCPCS: 96413; J0894

== ENCOUNTER 2023-01-30 13:58 | Outpatient (CLI) | payer MEDICARE, MEDICAID, SELFPAY ==
[2023-01-30 14:05] VITALS: BMI 32.1
[2023-01-30 14:18] LABS: Basophils # 0.1 K/mm3 (0-0.2); Basophils % 1.9 % (0.1-2.0); Eosinophils # 0.2 K/mm3 (0.0-0.4); Eosinophils % 8.6 % (0.1-12.0); Hematocrit 39.5 % (42.0-52.0); Hemoglobin 12.8 g/dL (14.1-18.0); Lymphocytes # 1.4 K/mm3 (0.7-4.5); Lymphocytes % 57.3 % (10-50); Mean Corpuscular HGB Conc 32.5 g/dL (31.8-35.4); Mean Corpuscular Hemoglobin 33.7 pg (27.0-31.2); Mean Corpuscular Volume 103.6 fl (80-94); Mean Platelet Volume 9.7 fl (7.4-10.4); Monocytes # 0.1 K/mm3 (0.1-1.0); Monocytes % 3.3 % (1.7-9.3); Neutrophils # 0.7 K/mm3 (1.8-7.8); Platelet Count 106 K/mm3 (142-424); Red Blood Count 3.81 M/mm3 (4.60-6.20); Red Cell Distribution Width 16.1 % (11.5-17.5); White Blood Count 2.4 K/mm3 (4.8-10.8)
[2023-01-30 14:22] LABS: MANUAL DIFFERENTIAL MANUAL DIFFERENTIAL (MANUAL DIFF)
[2023-01-30 14:24] LABS: Chloride 108 mmol/L (98-107)
[2023-01-30 14:25] LABS: Potassium 4.4 mmoL/L (3.5-5.1); Sodium 138 mmol/L (136-145)
[2023-01-30 14:27] LABS: Alanine Aminotransferase 18 U/L (12-78); Alkaline Phosphatase 75 U/L (38-126); Anion Gap 9.4 mEq/L (5-15); Aspartate Amino Transferase 26 U/L (17-59); Bilirubin,Total 0.6 mg/dl (0.2-1.3); Blood Urea Nitrogen 24 mg/dl (9-20); Carbon Dioxide 25 mmol/L (22.0-30.0); Creatinine Clearance Estimated 78 mL/min (50-200); Estimated Glomerular Filt Rate 59 ml/min (>60); GFR (African American) 71 ML/MIN (>60)
[2023-01-30 14:28] LABS: Albumin Level 3.7 g/dl (3.5-5.0); Albumin/Globulin Ratio 1.4 (1.1-1.8); Calcium 8.5 mg/dl (8.4-10.2); Globulin 2.7 g/dL (1.3-3.2); Glucose 97 mg/dl (74-100); Total Protein,Serum 6.4 g/dl (6.3-8.2)
[2023-01-30 15:02] LABS: Lymphocytes % 67 % (10-50); Monocytes % 3 % (2-9); Neutrophils % 30 % (42-76); Platelet Estimate Slight Decrease; Total Cells Counted 100
[2023-01-30 15:03] LABS: Macrocytosis 1+
== END 2023-01-30 14:18 | disposition home or self-care (01) ==
LOC: INF 13:59
PROVIDERS: Internal Medicine Medical Oncology; PCP Internal Medicine Adolescent Medicine; Visit Provider Internal Medicine Adolescent Medicine
DX: D46.9 Myelodysplastic syndrome, unspecified (principal)
CPT/HCPCS: 36415; 80053; 85007; 85025

== ENCOUNTER 2023-02-03 08:06 | Outpatient (CLI) | payer MEDICARE, MEDICAID, SELFPAY ==
[2023-02-03 08:53] VITALS: BP 118/50; PULSE 66; RESP 18; TEMP 36.6; O2SAT 98
[2023-02-03 10:15] VITALS: BP 130/59; PULSE 57; RESP 18; O2SAT 97
== END 2023-02-03 10:15 | disposition home or self-care (01) ==
LOC: INF 08:07
PROVIDERS: PCP Internal Medicine Adolescent Medicine; Visit Provider Internal Medicine Medical Oncology
DX: D46.9 Myelodysplastic syndrome, unspecified (principal)
CPT/HCPCS: 96413; J0894

== ENCOUNTER 2023-02-04 07:59 | Outpatient (CLI) | payer MEDICARE, MEDICAID, SELFPAY ==
[2023-02-04 08:30] VITALS: BP 121/57; PULSE 62; RESP 18; TEMP 36.7; O2SAT 96
[2023-02-04 09:44] VITALS: BP 120/57; PULSE 62; RESP 18
== END 2023-02-04 09:44 | disposition home or self-care (01) ==
LOC: INF 08:00
PROVIDERS: PCP Internal Medicine Adolescent Medicine; Visit Provider Internal Medicine Medical Oncology
DX: D46.9 Myelodysplastic syndrome, unspecified (principal)
CPT/HCPCS: 96413; J0894

== ENCOUNTER 2023-02-05 07:56 | Outpatient (CLI) | payer MEDICARE, MEDICAID, SELFPAY ==
[2023-02-05 08:45] VITALS: BP 113/67; PULSE 62; RESP 18; TEMP 36.7; O2SAT 99
[2023-02-05 09:15] VITALS: BP 120/72; PULSE 64; RESP 18; O2SAT 99
[2023-02-05 10:10] VITALS: BP 113/54; PULSE 57; RESP 18; O2SAT 100
== END 2023-02-05 10:15 | disposition home or self-care (01) ==
LOC: INF 07:57
PROVIDERS: PCP Internal Medicine Adolescent Medicine; Visit Provider Internal Medicine Medical Oncology
DX: D46.9 Myelodysplastic syndrome, unspecified (principal)
CPT/HCPCS: 96413; J0894

== ENCOUNTER 2023-02-06 08:03 | Outpatient (CLI) | payer MEDICARE, MEDICAID, SELFPAY ==
[2023-02-06 10:00] VITALS: BP 141/70; PULSE 58; RESP 18; TEMP 36.7; O2SAT 97
[2023-02-06 10:08] VITALS: BP 126/86; PULSE 58; RESP 18; TEMP 36.7; O2SAT 96
== END 2023-02-06 10:00 | disposition home or self-care (01) ==
LOC: INF 08:04
PROVIDERS: PCP Internal Medicine Adolescent Medicine; Visit Provider Internal Medicine Medical Oncology
DX: D46.9 Myelodysplastic syndrome, unspecified (principal)
CPT/HCPCS: 96413; J0894

== ENCOUNTER 2023-02-07 08:01 | Outpatient (CLI) | payer MEDICARE, MEDICAID, SELFPAY ==
[2023-02-07 08:45] VITALS: BP 140/42; PULSE 56; RESP 18; O2SAT 99
[2023-02-07 09:00] VITALS: BP 146/65; PULSE 53; RESP 16
[2023-02-07 09:15] VITALS: BP 153/69; PULSE 53; RESP 16
[2023-02-07 09:45] VITALS: BP 155/72; PULSE 54; RESP 16
[2023-02-07 10:18] VITALS: BP 160/69; PULSE 53; RESP 16
== END 2023-02-07 10:03 | disposition home or self-care (01) ==
LOC: INF 08:03
PROVIDERS: PCP Internal Medicine Adolescent Medicine; Visit Provider Internal Medicine Medical Oncology
DX: D46.9 Myelodysplastic syndrome, unspecified (principal)
CPT/HCPCS: 96413; J0894

== ENCOUNTER 2023-02-27 14:07 | Outpatient (CLI) | payer MEDICARE, MEDICAID, SELFPAY ==
[2023-02-27 14:10] VITALS: BMI 31.8
--- NOTE | 2023-02-27 14:15 | PC.NURSE ---
1415-collected labs via venipuncture with butterfly needle in left ac;pt d/c to oncology appointment.
[2023-02-27 14:24] LABS: Basophils # 0.1 K/mm3 (0-0.2); Basophils % 2.3 % (0.1-2.0); Eosinophils # 0.1 K/mm3 (0.0-0.4); Eosinophils % 6.1 % (0.1-12.0); Hematocrit 38.6 % (42.0-52.0); Hemoglobin 12.4 g/dL (14.1-18.0); Lymphocytes # 1.4 K/mm3 (0.7-4.5); Lymphocytes % 65.7 % (10-50); Mean Corpuscular HGB Conc 32.2 g/dL (31.8-35.4); Mean Corpuscular Hemoglobin 33.9 pg (27.0-31.2); Mean Corpuscular Volume 105.5 fl (80-94); Mean Platelet Volume 9.5 fl (7.4-10.4); Monocytes # 0.1 K/mm3 (0.1-1.0); Monocytes % 3.5 % (1.7-9.3); Neutrophils # 0.5 K/mm3 (1.8-7.8); Neutrophils % 22.3 % (37.0-80.0); Platelet Count 88 K/mm3 (142-424); Red Blood Count 3.66 M/mm3 (4.60-6.20); Red Cell Distribution Width 15.8 % (11.5-17.5); White Blood Count 2.2 K/mm3 (4.8-10.8)
[2023-02-27 14:29] LABS: Chloride 103 mmol/L (98-107)
[2023-02-27 14:30] LABS: Potassium 4.6 mmoL/L (3.5-5.1); Sodium 140 mmol/L (136-145)
[2023-02-27 14:32] LABS: Alanine Aminotransferase 18 U/L (12-78); Anion Gap 12.6 mEq/L (5-15); Aspartate Amino Transferase 25 U/L (17-59); Blood Urea Nitrogen 24 mg/dl (9-20); Carbon Dioxide 29 mmol/L (22.0-30.0); Creatinine Clearance Estimated 67 mL/min (50-200); Estimated Glomerular Filt Rate 49 ml/min (>60); GFR (African American) 59 ML/MIN (>60)
[2023-02-27 14:33] LABS: Albumin Level 3.6 g/dl (3.5-5.0); Albumin/Globulin Ratio 1.5 (1.1-1.8); Alkaline Phosphatase 69 U/L (38-126); Bilirubin,Total 0.5 mg/dl (0.2-1.3); Calcium 8.9 mg/dl (8.4-10.2); Globulin 2.4 g/dL (1.3-3.2); Glucose 99 mg/dl (74-100)
[2023-02-27 14:50] LABS: MANUAL DIFFERENTIAL MANUAL DIFFERENTIAL (MANUAL DIFF)
[2023-02-27 15:30] LABS: Eosinophils % 1 % (0-3); Lymphocytes % 72 % (10-50); Macrocytosis 2+; Monocytes % 3 % (2-9); Neutrophils % 24 % (42-76); Platelet Estimate Moderate Decrease; Total Cells Counted 100
== END 2023-02-27 14:17 ==
LOC: INF 14:07
PROVIDERS: PCP Internal Medicine Adolescent Medicine; Visit Provider Internal Medicine Medical Oncology
DX: D46.9 Myelodysplastic syndrome, unspecified (principal)
CPT/HCPCS: 36415; 80053; 85007; 85025

== ENCOUNTER 2023-03-03 07:57 | Outpatient (CLI) | payer MEDICARE, MEDICAID, SELFPAY ==
[2023-03-03 08:10] VITALS: BMI 32.4
[2023-03-03 08:17] VITALS: BP 148/75; PULSE 52; RESP 18; TEMP 36.8; O2SAT 99
[2023-03-03 09:02] LABS: Chol/HDL Ratio 2.6 (1-3.5); Cholesterol 125 mg/dl (140-200); HDL Cholesterol 49 mg/dl (40-60); Triglycerides 109 mg/dl (30-150); VLDL Cholesterol 22 mg/dL (0-40)
[2023-03-03 09:13] LABS: Direct LDL Cholesterol 55.85 mg/dL (100-129)
[2023-03-03 09:14] VITALS: BP 138/72; PULSE 53; RESP 18; O2SAT 99
[2023-03-03 09:30] VITALS: BP 134/72; PULSE 50; RESP 18; O2SAT 99
[2023-03-03 10:10] VITALS: BP 130/71; PULSE 56; RESP 18; O2SAT 99
== END 2023-03-03 10:10 | disposition home or self-care (01) ==
LOC: INF 07:58
PROVIDERS: Nurse Practitioner Family; PCP Internal Medicine Adolescent Medicine; Visit Provider Internal Medicine Medical Oncology
DX: D46.9 Myelodysplastic syndrome, unspecified (principal); E78.5 Hyperlipidemia, unspecified; I10 Essential (primary) hypertension
CPT/HCPCS: 80061; 96413; J0894

== ENCOUNTER 2023-03-04 07:59 | Outpatient (CLI) | payer MEDICARE, MEDICAID, SELFPAY ==
[2023-03-04 08:32] VITALS: BP 119/51; PULSE 60; RESP 18; TEMP 36.8; O2SAT 99
[2023-03-04 09:10] VITALS: BP 122/53; PULSE 62; RESP 18; O2SAT 99
[2023-03-04 09:40] VITALS: BP 127/69; PULSE 58; RESP 18; O2SAT 97
== END 2023-03-04 09:40 | disposition home or self-care (01) ==
LOC: INF 08:00
PROVIDERS: PCP Internal Medicine Adolescent Medicine; Visit Provider Internal Medicine Medical Oncology
DX: D46.9 Myelodysplastic syndrome, unspecified (principal)
CPT/HCPCS: 96413; J0894

== ENCOUNTER 2023-03-05 08:02 | Outpatient (CLI) | payer MEDICARE, MEDICAID, SELFPAY ==
[2023-03-05 08:43] VITALS: BP 111/58; PULSE 62; RESP 18; TEMP 36.7; O2SAT 98
[2023-03-05 09:50] VITALS: BP 128/62; PULSE 59; RESP 18
== END 2023-03-05 09:50 | disposition home or self-care (01) ==
LOC: INF 08:02
PROVIDERS: PCP Internal Medicine Adolescent Medicine; Visit Provider Internal Medicine Medical Oncology
DX: D46.9 Myelodysplastic syndrome, unspecified (principal)
CPT/HCPCS: 96413; J0894

== ENCOUNTER 2023-03-06 07:59 | Outpatient (CLI) | payer MEDICARE, MEDICAID, SELFPAY ==
[2023-03-06 08:45] VITALS: BP 107/62; PULSE 62; RESP 16; O2SAT 97
[2023-03-06 09:00] VITALS: BP 129/56; PULSE 57; RESP 16
[2023-03-06 09:15] VITALS: BP 133/62; PULSE 58; RESP 16
[2023-03-06 09:30] VITALS: BP 146/63; PULSE 54; RESP 16
[2023-03-06 09:45] VITALS: BP 138/58; PULSE 56; RESP 16
== END 2023-03-06 10:00 | disposition home or self-care (01) ==
LOC: INF 08:00
PROVIDERS: PCP Internal Medicine Adolescent Medicine; Visit Provider Internal Medicine Medical Oncology
DX: D46.9 Myelodysplastic syndrome, unspecified (principal)
CPT/HCPCS: 96413; J0894

== ENCOUNTER 2023-03-07 07:59 | Outpatient (CLI) | payer MEDICARE, MEDICAID, SELFPAY ==
[2023-03-07 08:50] VITALS: BP 112/63; PULSE 59; RESP 18; TEMP 36.6; O2SAT 97
[2023-03-07 09:15] VITALS: BP 142/81; PULSE 56; RESP 18
[2023-03-07 09:50] VITALS: BP 148/82; PULSE 58; RESP 18; O2SAT 98
== END 2023-03-07 10:02 | disposition home or self-care (01) ==
LOC: INF 07:59
PROVIDERS: PCP Internal Medicine Adolescent Medicine; Visit Provider Internal Medicine Medical Oncology
DX: D46.9 Myelodysplastic syndrome, unspecified (principal)
CPT/HCPCS: 96413; J0894

== ENCOUNTER 2023-03-28 08:00 | Outpatient (CLI) | payer MEDICARE, MEDICAID, SELFPAY ==
[2023-03-28 08:17] VITALS: BMI 32.4
--- NOTE | 2023-03-28 08:31 | PC.NURSE ---
0825- cbc and cmp drawn per md order via butterfly needle in left ac. needle removed and dressing applied overtop. pt tolerated well. pt to oncology appt at this time.
[2023-03-28 08:41] LABS: Basophils % 1.7 % (0.1-2.0); Chloride 106 mmol/L (98-107); Eosinophils # 0.1 K/mm3 (0.0-0.4); Eosinophils % 6.5 % (0.1-12.0); Hematocrit 37.8 % (42.0-52.0); Hemoglobin 11.9 g/dL (14.1-18.0); Lymphocytes # 0.8 K/mm3 (0.7-4.5); Lymphocytes % 57.8 % (10-50); Mean Corpuscular HGB Conc 31.6 g/dL (31.8-35.4); Mean Corpuscular Hemoglobin 32.9 pg (27.0-31.2); Mean Platelet Volume 10.1 fl (7.4-10.4); Monocytes % 1.7 % (1.7-9.3); Neutrophils # 0.5 K/mm3 (1.8-7.8); Neutrophils % 32.3 % (37.0-80.0); Platelet Count 89 K/mm3 (142-424); Red Blood Count 3.63 M/mm3 (4.60-6.20); Red Cell Distribution Width 15.3 % (11.5-17.5); White Blood Count 1.4 K/mm3 (4.8-10.8)
[2023-03-28 08:42] LABS: Potassium 3.9 mmoL/L (3.5-5.1); Sodium 139 mmol/L (136-145)
[2023-03-28 08:44] LABS: Alanine Aminotransferase 21 U/L (12-78); Alkaline Phosphatase 59 U/L (38-126); Anion Gap 12.9 mEq/L (5-15); Aspartate Amino Transferase 27 U/L (17-59); Bilirubin,Total 0.7 mg/dl (0.2-1.3); Blood Urea Nitrogen 22 mg/dl (9-20); Carbon Dioxide 24 mmol/L (22.0-30.0); Creatinine Clearance Estimated 86 mL/min (50-200); Estimated Glomerular Filt Rate 65 ml/min (>60); GFR (African American) 79 ML/MIN (>60)
[2023-03-28 08:45] LABS: Albumin Level 3.6 g/dl (3.5-5.0); Albumin/Globulin Ratio 1.3 (1.1-1.8); Calcium 8.5 mg/dl (8.4-10.2); Globulin 2.7 g/dL (1.3-3.2); Glucose 97 mg/dl (74-100); Total Protein,Serum 6.3 g/dl (6.3-8.2)
[2023-03-28 08:47] LABS: MANUAL DIFFERENTIAL MANUAL DIFFERENTIAL (MANUAL DIFF)
[2023-03-28 09:21] LABS: Eosinophils % 1 % (0-3); Lymphocytes % 63 % (10-50); Macrocytosis 1+; Monocytes % 2 % (2-9); Neutrophils % 34 % (42-76); Platelet Estimate Moderate Decrease; Total Cells Counted 100
== END 2023-03-28 08:34 | disposition home or self-care (01) ==
LOC: INF 08:01
PROVIDERS: PCP Internal Medicine Adolescent Medicine; Visit Provider Internal Medicine Medical Oncology
DX: D46.9 Myelodysplastic syndrome, unspecified (principal)
CPT/HCPCS: 36415; 80053; 85007; 85025

== ENCOUNTER 2023-03-31 08:01 | Outpatient (CLI) | payer MEDICARE, MEDICAID, SELFPAY ==
[2023-03-31 08:50] VITALS: BP 125/51; PULSE 53; RESP 18; TEMP 36.9; O2SAT 98
[2023-03-31 10:05] VITALS: BP 140/63; PULSE 59; RESP 18; O2SAT 99
== END 2023-03-31 10:05 | disposition home or self-care (01) ==
LOC: INF 08:02
PROVIDERS: PCP Internal Medicine Adolescent Medicine; Visit Provider Internal Medicine Medical Oncology
DX: D46.9 Myelodysplastic syndrome, unspecified (principal)
CPT/HCPCS: 96413; J0894

== ENCOUNTER 2023-04-01 08:02 | Outpatient (CLI) | payer MEDICARE, MEDICAID, SELFPAY ==
[2023-04-01 08:55] VITALS: BP 123/55; PULSE 55; RESP 18; O2SAT 97
[2023-04-01 10:10] VITALS: BP 176/53; PULSE 58; RESP 18
== END 2023-04-01 10:10 | disposition home or self-care (01) ==
LOC: INF 08:03
PROVIDERS: PCP Internal Medicine Adolescent Medicine; Visit Provider Internal Medicine Medical Oncology
DX: D46.9 Myelodysplastic syndrome, unspecified (principal)
CPT/HCPCS: 96413; J0894

== ENCOUNTER 2023-04-02 08:15 | Outpatient (CLI) | payer MEDICARE, MEDICAID, SELFPAY ==
[2023-04-02 08:30] VITALS: BP 127/55; PULSE 61; RESP 18; TEMP 36.7; O2SAT 97
[2023-04-02 09:13] VITALS: BP 120/51; PULSE 57; RESP 18; O2SAT 97
[2023-04-02 09:43] VITALS: BP 123/54; PULSE 59; RESP 18; O2SAT 97
[2023-04-02 10:28] VITALS: BP 131/56; PULSE 58; RESP 18; O2SAT 97
== END 2023-04-02 10:30 | disposition home or self-care (01) ==
LOC: INF 08:16
PROVIDERS: PCP Internal Medicine Adolescent Medicine; Visit Provider Internal Medicine Adolescent Medicine
DX: D46.9 Myelodysplastic syndrome, unspecified (principal)
CPT/HCPCS: 96413; J0894

== ENCOUNTER 2023-04-03 08:04 | Outpatient (CLI) | payer MEDICARE, MEDICAID, SELFPAY ==
[2023-04-03 08:48] VITALS: BP 122/59; PULSE 59; RESP 18; TEMP 36.8; O2SAT 97
[2023-04-03 09:20] VITALS: BP 142/60; PULSE 49; RESP 18
[2023-04-03 10:00] VITALS: BP 126/62; PULSE 55; RESP 18; O2SAT 98
== END 2023-04-03 10:00 | disposition home or self-care (01) ==
PROVIDERS: PCP Internal Medicine Adolescent Medicine; Visit Provider Internal Medicine Medical Oncology
DX: D46.9 Myelodysplastic syndrome, unspecified (principal)
CPT/HCPCS: 96413; J0894

== ENCOUNTER 2023-04-04 08:01 | Outpatient (CLI) | payer MEDICARE, MEDICAID, SELFPAY ==
[2023-04-04 08:58] VITALS: BP 135/52; PULSE 69; RESP 18; TEMP 36.7; O2SAT 99
[2023-04-04 10:18] VITALS: BP 139/91; PULSE 56; RESP 18; O2SAT 97
== END 2023-04-04 10:18 | disposition home or self-care (01) ==
LOC: INF 08:02
PROVIDERS: PCP Internal Medicine Adolescent Medicine; Visit Provider Internal Medicine Medical Oncology
DX: D46.9 Myelodysplastic syndrome, unspecified (principal)
CPT/HCPCS: 96413; J0894

== ENCOUNTER 2023-04-24 08:15 | Outpatient (CLI) | payer MEDICARE, MEDICAID, SELFPAY ==
[2023-04-24 08:18] VITALS: BMI 32.3
[2023-04-24 08:36] LABS: Basophils % 1.2 % (0.1-2.0); Eosinophils # 0.1 K/mm3 (0.0-0.4); Eosinophils % 5.4 % (0.1-12.0); Hematocrit 39.8 % (42.0-52.0); Hemoglobin 12.6 g/dL (14.1-18.0); Lymphocytes # 1.4 K/mm3 (0.7-4.5); Lymphocytes % 69.1 % (10-50); Mean Corpuscular HGB Conc 31.6 g/dL (31.8-35.4); Mean Corpuscular Hemoglobin 32.6 pg (27.0-31.2); Mean Corpuscular Volume 102.9 fl (80-94); Mean Platelet Volume 10.5 fl (7.4-10.4); Monocytes % 1.2 % (1.7-9.3); Neutrophils # 0.5 K/mm3 (1.8-7.8); Platelet Count 100 K/mm3 (142-424); Red Blood Count 3.87 M/mm3 (4.60-6.20); Red Cell Distribution Width 15.2 % (11.5-17.5)
[2023-04-24 08:40] LABS: MANUAL DIFFERENTIAL MANUAL DIFFERENTIAL (MANUAL DIFF)
[2023-04-24 08:46] LABS: Alanine Aminotransferase 24 U/L (12-78); Albumin Level 4.3 g/dl (3.5-5.0); Albumin/Globulin Ratio 1.6 (1.1-1.8); Alkaline Phosphatase 77 U/L (38-126); Anion Gap 10.5 mEq/L (5-15); Aspartate Amino Transferase 34 U/L (17-59); Bilirubin,Total 1.1 mg/dl (0.2-1.3); Blood Urea Nitrogen 28 mg/dl (9-20); Calcium 9.1 mg/dl (8.4-10.2); Carbon Dioxide 25 mmol/L (22.0-30.0); Chloride 109 mmol/L (98-107); Creatinine Clearance Estimated 77 mL/min (50-200); Estimated Glomerular Filt Rate 59 ml/min (>60); GFR (African American) 71 ML/MIN (>60); Globulin 2.7 g/dL (1.3-3.2); Glucose 104 mg/dl (74-100); Potassium 3.5 mmoL/L (3.5-5.1); Sodium 141 mmol/L (136-145)
[2023-04-24 10:11] LABS: Eosinophils % 6 % (0-3); Lymphocytes % 71 % (10-50); Macrocytosis 1+; Monocytes % 2 % (2-9); Neutrophils % 21 % (42-76); Platelet Estimate Slight Decrease; Total Cells Counted 100
== END 2023-04-24 08:36 | disposition home or self-care (01) ==
LOC: INF 08:15
PROVIDERS: PCP Internal Medicine Adolescent Medicine; Visit Provider Internal Medicine Medical Oncology
DX: D46.9 Myelodysplastic syndrome, unspecified (principal)
CPT/HCPCS: 36415; 80053; 85007; 85025

== ENCOUNTER 2023-04-28 08:01 | Outpatient (CLI) | payer MEDICARE, MEDICAID, SELFPAY ==
[2023-04-28 08:45] VITALS: BP 130/75; PULSE 86; RESP 18; O2SAT 97
[2023-04-28 09:50] VITALS: BP 156/84; PULSE 75; RESP 18; O2SAT 99
== END 2023-04-28 09:50 | disposition home or self-care (01) ==
LOC: INF 08:02
PROVIDERS: PCP Internal Medicine Adolescent Medicine; Visit Provider Internal Medicine Medical Oncology
DX: D46.9 Myelodysplastic syndrome, unspecified (principal)
CPT/HCPCS: 96413; J0894

== ENCOUNTER 2023-04-29 08:01 | Outpatient (CLI) | payer MEDICARE, MEDICAID, SELFPAY ==
[2023-04-29 08:45] VITALS: BP 124/66; PULSE 61; RESP 18; TEMP 36.9; O2SAT 96
[2023-04-29 09:00] VITALS: BP 132/67; PULSE 62
[2023-04-29 09:15] VITALS: BP 126/70; PULSE 59
[2023-04-29 09:30] VITALS: BP 120/67; PULSE 61
[2023-04-29 09:45] VITALS: BP 130/71; PULSE 60
== END 2023-04-29 10:00 | disposition home or self-care (01) ==
LOC: INF 08:01
PROVIDERS: PCP Internal Medicine Adolescent Medicine; Visit Provider Internal Medicine Medical Oncology
DX: D46.9 Myelodysplastic syndrome, unspecified (principal)
CPT/HCPCS: 96413; J0894

== ENCOUNTER 2023-04-30 08:08 | Outpatient (CLI) | payer MEDICARE, MEDICAID, SELFPAY ==
[2023-04-30 08:20] VITALS: BP 120/75; PULSE 61; RESP 18; TEMP 36.6; O2SAT 98
[2023-04-30 08:55] VITALS: BP 132/74; PULSE 59
[2023-04-30 09:35] VITALS: BP 135/69; PULSE 60
== END 2023-04-30 10:10 | disposition home or self-care (01) ==
LOC: INF 08:09
PROVIDERS: PCP Internal Medicine Adolescent Medicine; Visit Provider Internal Medicine Medical Oncology
DX: D46.9 Myelodysplastic syndrome, unspecified (principal)
CPT/HCPCS: 96413; J0894

== ENCOUNTER 2023-05-01 08:06 | Outpatient (CLI) | payer MEDICARE, MEDICAID, SELFPAY ==
[2023-05-01 08:51] VITALS: BP 135/65; PULSE 82; RESP 18; TEMP 36.6; O2SAT 97
[2023-05-01 09:05] VITALS: BP 142/66; PULSE 80; RESP 18
[2023-05-01 09:20] VITALS: BP 140/69; PULSE 79; RESP 18
[2023-05-01 09:35] VITALS: BP 151/70; PULSE 75; RESP 18
[2023-05-01 10:05] VITALS: BP 148/79; PULSE 78; RESP 18
== END 2023-05-01 10:05 | disposition home or self-care (01) ==
LOC: INF 08:07
PROVIDERS: PCP Internal Medicine Adolescent Medicine; Visit Provider Internal Medicine Medical Oncology
DX: D46.9 Myelodysplastic syndrome, unspecified (principal)
CPT/HCPCS: 96413; J0894

== ENCOUNTER 2023-05-02 08:02 | Outpatient (CLI) | payer MEDICARE, MEDICAID, SELFPAY ==
[2023-05-02 08:43] VITALS: BP 127/69; PULSE 92; RESP 18; O2SAT 97
[2023-05-02 09:00] VITALS: BP 152/74; PULSE 82; RESP 18
[2023-05-02 09:15] VITALS: BP 153/78; PULSE 78; RESP 18
[2023-05-02 09:30] VITALS: BP 163/82; PULSE 77; RESP 18
[2023-05-02 09:45] VITALS: BP 159/81; PULSE 75; RESP 18
[2023-05-02 09:58] VITALS: BP 167/93; PULSE 73; RESP 18; O2SAT 98
== END 2023-05-02 09:58 | disposition home or self-care (01) ==
LOC: INF 08:05
PROVIDERS: PCP Internal Medicine Adolescent Medicine; Visit Provider Internal Medicine Medical Oncology
DX: D46.9 Myelodysplastic syndrome, unspecified (principal)
CPT/HCPCS: 96413; J0894

== ENCOUNTER 2023-05-23 07:47 | Outpatient (CLI) | payer MEDICARE, MEDICAID, SELFPAY ==
[2023-05-23 08:05] VITALS: BMI 31.7
--- NOTE | 2023-05-23 08:10 | PC.NURSE ---
0810-collected labs via venipuncture stick in left ac with butterfly needle;pt to oncolgoy appointment.
[2023-05-23 08:24] LABS: Chloride 106 mmol/L (98-107); Potassium 3.8 mmoL/L (3.5-5.1); Sodium 139 mmol/L (136-145)
[2023-05-23 08:27] LABS: Alanine Aminotransferase 20 U/L (12-78); Albumin Level 3.7 g/dl (3.5-5.0); Albumin/Globulin Ratio 1.3 (1.1-1.8); Alkaline Phosphatase 81 U/L (38-126); Anion Gap 9.8 mEq/L (5-15); Aspartate Amino Transferase 24 U/L (17-59); Bilirubin,Total 0.8 mg/dl (0.2-1.3); Blood Urea Nitrogen 22 mg/dl (9-20); Calcium 9.3 mg/dl (8.4-10.2); Carbon Dioxide 27 mmol/L (22.0-30.0); Creatinine Clearance Estimated 76 mL/min (50-200); Estimated Glomerular Filt Rate 59 ml/min (>60); GFR (African American) 71 ML/MIN (>60); Globulin 2.9 g/dL (1.3-3.2); Glucose 108 mg/dl (74-100); Total Protein,Serum 6.6 g/dl (6.3-8.2)
[2023-05-23 09:12] LABS: Basophils % 2.5 % (0.1-2.0); Eosinophils # 0.1 K/mm3 (0.0-0.4); Eosinophils % 6.1 % (0.1-12.0); Hematocrit 38.4 % (42.0-52.0); Hemoglobin 11.9 g/dL (14.1-18.0); Lymphocytes % 72.6 % (10-50); Mean Corpuscular Hemoglobin 33.2 pg (27.0-31.2); Mean Corpuscular Volume 107.2 fl (80-94); Mean Platelet Volume 9.6 fl (7.4-10.4); Neutrophils # 0.2 K/mm3 (1.8-7.8); Neutrophils % 17.7 % (37.0-80.0); Platelet Count 114 K/mm3 (142-424); Red Blood Count 3.59 M/mm3 (4.60-6.20); Red Cell Distribution Width 15.7 % (11.5-17.5); White Blood Count 1.3 K/mm3 (4.8-10.8)
[2023-05-23 09:13] LABS: MANUAL DIFFERENTIAL MANUAL DIFFERENTIAL (MANUAL DIFF)
[2023-05-23 10:51] LABS: Lymphocytes % 67 % (10-50); Neutrophils % 33 % (42-76); Total Cells Counted 15
[2023-05-23 10:52] LABS: Macrocytosis 1+; Platelet Estimate Slight Decrease
== END 2023-05-23 08:11 | disposition home or self-care (01) ==
LOC: INF 07:48
PROVIDERS: PCP Internal Medicine Adolescent Medicine; Visit Provider Internal Medicine Medical Oncology
DX: D46.9 Myelodysplastic syndrome, unspecified (principal); Z45.2 Encounter for adjustment and management of vascular access device
CPT/HCPCS: 36415; 80053; 85007; 85025

== ENCOUNTER 2023-06-19 08:43 | Outpatient (CLI) | payer MEDICARE, MEDICAID, SELFPAY ==
[2023-06-19 08:46] VITALS: BMI 31.8
[2023-06-19 09:02] LABS: Basophils % 0.6 % (0.1-2.0); Eosinophils # 0.2 K/mm3 (0.0-0.4); Eosinophils % 3.6 % (0.1-12.0); Hematocrit 44.3 % (42.0-52.0); Hemoglobin 14.3 g/dL (14.1-18.0); Lymphocytes # 1.4 K/mm3 (0.7-4.5); Lymphocytes % 29.6 % (10-50); Mean Corpuscular HGB Conc 32.2 g/dL (31.8-35.4); Mean Corpuscular Hemoglobin 33.8 pg (27.0-31.2); Mean Platelet Volume 9.3 fl (7.4-10.4); Monocytes # 0.3 K/mm3 (0.1-1.0); Monocytes % 5.8 % (1.7-9.3); Neutrophils # 2.9 K/mm3 (1.8-7.8); Neutrophils % 60.4 % (37.0-80.0); Platelet Count 82 K/mm3 (142-424); Red Blood Count 4.22 M/mm3 (4.60-6.20); Red Cell Distribution Width 14.4 % (11.5-17.5); White Blood Count 4.8 K/mm3 (4.8-10.8)
[2023-06-19 09:11] LABS: Alanine Aminotransferase 22 U/L (12-78); Albumin Level 4.1 g/dl (3.5-5.0); Albumin/Globulin Ratio 1.4 (1.1-1.8); Alkaline Phosphatase 85 U/L (38-126); Aspartate Amino Transferase 29 U/L (17-59); Bilirubin,Total 0.8 mg/dl (0.2-1.3); Blood Urea Nitrogen 24 mg/dl (9-20); Carbon Dioxide 24 mmol/L (22.0-30.0); Chloride 107 mmol/L (98-107); Creatinine Clearance Estimated 83 mL/min (50-200); Estimated Glomerular Filt Rate 65 ml/min (>60); GFR (African American) 78 ML/MIN (>60); Glucose 108 mg/dl (74-100); Sodium 139 mmol/L (136-145); Total Protein,Serum 7.1 g/dl (6.3-8.2)
== END 2023-06-19 08:58 | disposition home or self-care (01) ==
LOC: INF 08:44
PROVIDERS: PCP Internal Medicine Adolescent Medicine; Visit Provider Internal Medicine Medical Oncology
DX: D46.9 Myelodysplastic syndrome, unspecified (principal)
CPT/HCPCS: 36415; 80053; 85025

== ENCOUNTER 2023-07-17 08:02 | Outpatient (CLI) | payer MEDICARE, MEDICAID, SELFPAY ==
[2023-07-17 08:10] VITALS: BMI 32.0
[2023-07-17 08:24] LABS: Basophils % 0.5 % (0.1-2.0); Eosinophils # 0.2 K/mm3 (0.0-0.4); Eosinophils % 6.1 % (0.1-12.0); Hematocrit 42.7 % (42.0-52.0); Hemoglobin 13.6 g/dL (14.1-18.0); Lymphocytes # 1.3 K/mm3 (0.7-4.5); Lymphocytes % 36.5 % (10-50); Mean Corpuscular HGB Conc 31.8 g/dL (31.8-35.4); Mean Corpuscular Hemoglobin 33.1 pg (27.0-31.2); Mean Corpuscular Volume 103.8 fl (80-94); Mean Platelet Volume 9.4 fl (7.4-10.4); Monocytes # 0.2 K/mm3 (0.1-1.0); Neutrophils # 1.9 K/mm3 (1.8-7.8); Neutrophils % 50.9 % (37.0-80.0); Platelet Count 73 K/mm3 (142-424); Red Blood Count 4.12 M/mm3 (4.60-6.20); Red Cell Distribution Width 13.6 % (11.5-17.5); White Blood Count 3.6 K/mm3 (4.8-10.8)
[2023-07-17 08:30] LABS: Chloride 108 mmol/L (98-107); Potassium 3.9 mmoL/L (3.5-5.1); Sodium 139 mmol/L (136-145)
[2023-07-17 08:33] LABS: Alanine Aminotransferase 23 U/L (12-78); Albumin Level 3.8 g/dl (3.5-5.0); Albumin/Globulin Ratio 1.4 (1.1-1.8); Alkaline Phosphatase 75 U/L (38-126); Anion Gap 9.9 mEq/L (5-15); Aspartate Amino Transferase 30 U/L (17-59); Bilirubin,Total 0.7 mg/dl (0.2-1.3); Blood Urea Nitrogen 22 mg/dl (9-20); Carbon Dioxide 25 mmol/L (22.0-30.0); Creatinine Clearance Estimated 84 mL/min (50-200); Estimated Glomerular Filt Rate 65 ml/min (>60); GFR (African American) 78 ML/MIN (>60); Globulin 2.8 g/dL (1.3-3.2); Total Protein,Serum 6.6 g/dl (6.3-8.2)
[2023-07-17 08:34] LABS: Calcium 8.6 mg/dl (8.4-10.2); Glucose 101 mg/dl (74-100)
--- NOTE | 2023-07-17 09:28 | PC.NURSE ---
0810 - BLOOD DRAWN FROM LEFT AC FOR DR HERRERA USING BUTTERFLY NEEDLE AT THIS TIME.
== END 2023-07-17 08:20 | disposition home or self-care (01) ==
LOC: INF 08:03
PROVIDERS: PCP Internal Medicine Adolescent Medicine; Visit Provider Internal Medicine Medical Oncology
DX: D46.9 Myelodysplastic syndrome, unspecified (principal)
CPT/HCPCS: 36415; 80053; 85025

== ENCOUNTER → 2023-08-14 08:14 | Outpatient (CLI) | payer MEDICARE, MEDICAID, SELFPAY ==
[2023-08-14 08:21] VITALS: BMI 31.8
--- NOTE | 2023-08-14 08:24 | PC.NURSE ---
Pt presents today prior to md appt to have blood drawn for labs. Venipuncture performed per Svitlana Tse RN using a butterfly needle to pts lt ac, blood drawn. Specimen sent to lab for analysis. Site secured with 2x2 gauze and coban once needle was withdrawn. Pt with spouse and ambulated to clinic for md appt.
[2023-08-14 08:37] LABS: Basophils % 0.4 % (0.1-2.0); Eosinophils # 0.1 K/mm3 (0.0-0.4); Eosinophils % 4.2 % (0.1-12.0); Hematocrit 40.6 % (42.0-52.0); Hemoglobin 13.8 g/dL (14.1-18.0); Lymphocytes % 59.9 % (10-50); Mean Corpuscular HGB Conc 33.9 g/dL (31.8-35.4); Mean Corpuscular Hemoglobin 34.1 pg (27.0-31.2); Mean Corpuscular Volume 100.7 fl (80-94); Mean Platelet Volume 8.7 fl (7.4-10.4); Monocytes # 0.1 K/mm3 (0.1-1.0); Monocytes % 4.1 % (1.7-9.3); Neutrophils # 1.1 K/mm3 (1.8-7.8); Neutrophils % 31.3 % (37.0-80.0); Platelet Count 56 K/mm3 (142-424); Red Blood Count 4.04 M/mm3 (4.60-6.20); Red Cell Distribution Width 13.5 % (11.5-17.5); White Blood Count 3.3 K/mm3 (4.8-10.8)
[2023-08-14 08:38] LABS: MANUAL DIFFERENTIAL MANUAL DIFFERENTIAL (MANUAL DIFF)
[2023-08-14 08:47] LABS: Alanine Aminotransferase 23 U/L (12-78); Albumin Level 4.1 g/dl (3.5-5.0); Albumin/Globulin Ratio 1.3 (1.1-1.8); Alkaline Phosphatase 75 U/L (38-126); Anion Gap 11.2 mEq/L (5-15); Aspartate Amino Transferase 37 U/L (17-59); Bilirubin,Total 0.8 mg/dl (0.2-1.3); Blood Urea Nitrogen 22 mg/dl (9-20); Calcium 9.2 mg/dl (8.4-10.2); Carbon Dioxide 29 mmol/L (22.0-30.0); Chloride 103 mmol/L (98-107); Creatinine Clearance Estimated 83 mL/min (50-200); Estimated Glomerular Filt Rate 65 ml/min (>60); GFR (African American) 78 ML/MIN (>60); Globulin 3.1 g/dL (1.3-3.2); Glucose 110 mg/dl (74-100); Potassium 4.2 mmoL/L (3.5-5.1); Sodium 139 mmol/L (136-145); Total Protein,Serum 7.2 g/dl (6.3-8.2)
[2023-08-14 09:19] LABS: Eosinophils % 2 % (0-3); Lymphocytes % 59 % (10-50); Macrocytosis 1+; Monocytes % 4 % (2-9); Neutrophils % 35 % (42-76); Total Cells Counted 100
[2023-08-14 09:20] LABS: Platelet Estimate Marked Decrease
[2023-08-14 10:47] LABS: Vitamin B12 652 pg/mL (239-931)
[2023-08-14 14:00] LABS: Folate > 20.00 ng/mL
== END ==
PROVIDERS: Internal Medicine Medical Oncology; PCP Internal Medicine Adolescent Medicine; Visit Provider Internal Medicine Medical Oncology
DX: D46.9 Myelodysplastic syndrome, unspecified (principal)
CPT/HCPCS: 36415; 80053; 82607; 82746; 85007; 85025

== ENCOUNTER 2023-08-28 08:27 | Outpatient (CLI) | payer MEDICARE, MEDICAID, SELFPAY ==
[2023-08-28 08:33] VITALS: BMI 32.0
[2023-08-28 08:47] LABS: Basophils % 0.6 % (0.1-2.0); Eosinophils # 0.1 K/mm3 (0.0-0.4); Hematocrit 41.3 % (42.0-52.0); Hemoglobin 14.1 g/dL (14.1-18.0); Lymphocytes # 1.9 K/mm3 (0.7-4.5); Lymphocytes % 59.3 % (10-50); Mean Corpuscular HGB Conc 34.2 g/dL (31.8-35.4); Mean Corpuscular Hemoglobin 34.7 pg (27.0-31.2); Mean Corpuscular Volume 101.4 fl (80-94); Mean Platelet Volume 10.2 fl (7.4-10.4); Monocytes # 0.2 K/mm3 (0.1-1.0); Monocytes % 4.8 % (1.7-9.3); Neutrophils % 31.3 % (37.0-80.0); Platelet Count 55 K/mm3 (142-424); Red Blood Count 4.07 M/mm3 (4.60-6.20); Red Cell Distribution Width 13.8 % (11.5-17.5); White Blood Count 3.2 K/mm3 (4.8-10.8)
[2023-08-28 08:48] LABS: MANUAL DIFFERENTIAL MANUAL DIFFERENTIAL (MANUAL DIFF)
--- NOTE | 2023-08-28 08:49 | PC.NURSE ---
0840 - BLOOD DRAWN FROM LEFT AC USING BUTTERFLY NEEDLE TO CHECK LABS PER DR CHAN.
[2023-08-28 08:58] LABS: Alanine Aminotransferase 21 U/L (12-78); Albumin Level 4.1 g/dl (3.5-5.0); Albumin/Globulin Ratio 1.4 (1.1-1.8); Alkaline Phosphatase 70 U/L (38-126); Anion Gap 11.9 mEq/L (5-15); Aspartate Amino Transferase 31 U/L (17-59); Bilirubin,Total 0.8 mg/dl (0.2-1.3); Blood Urea Nitrogen 19 mg/dl (9-20); Calcium 9.1 mg/dl (8.4-10.2); Carbon Dioxide 28 mmol/L (22.0-30.0); Chloride 103 mmol/L (98-107); Creatinine Clearance Estimated 71 mL/min (50-200); Eosinophils % 5 % (0-3); Estimated Glomerular Filt Rate 53 ml/min (>60); GFR (African American) 65 ML/MIN (>60); Glucose 101 mg/dl (74-100); Lymphocytes % 55 % (10-50); Macrocytosis 1+; Monocytes % 6 % (2-9); Neutrophils % 34 % (42-76); Platelet Estimate Moderate Decrease; Potassium 3.9 mmoL/L (3.5-5.1); Sodium 139 mmol/L (136-145); Total Cells Counted 100; Total Protein,Serum 7.1 g/dl (6.3-8.2)
== END 2023-08-28 08:45 | disposition home or self-care (01) ==
LOC: INF 08:28
PROVIDERS: PCP Internal Medicine Adolescent Medicine; Visit Provider Internal Medicine Medical Oncology
DX: D46.Z Other myelodysplastic syndromes (principal)
CPT/HCPCS: 36415; 80053; 85007; 85025

== ENCOUNTER 2023-09-24 08:25 | Outpatient (CLI) | payer MEDICARE, MEDICAID, SELFPAY ==
[2023-09-24 08:30] VITALS: BMI 32.0
[2023-09-24 08:54] LABS: Basophils % 0.4 % (0.1-2.0); Eosinophils # 0.1 K/mm3 (0.0-0.4); Hematocrit 38.4 % (42.0-52.0); Hemoglobin 12.9 g/dL (14.1-18.0); Lymphocytes # 1.3 K/mm3 (0.7-4.5); Lymphocytes % 55.3 % (10-50); Mean Corpuscular HGB Conc 33.6 g/dL (31.8-35.4); Mean Corpuscular Hemoglobin 34.7 pg (27.0-31.2); Mean Corpuscular Volume 103.1 fl (80-94); Mean Platelet Volume 9.7 fl (7.4-10.4); Monocytes # 0.2 K/mm3 (0.1-1.0); Neutrophils # 0.8 K/mm3 (1.8-7.8); Neutrophils % 33.3 % (37.0-80.0); Platelet Count 52 K/mm3 (142-424); Red Blood Count 3.72 M/mm3 (4.60-6.20); Red Cell Distribution Width 14.3 % (11.5-17.5); White Blood Count 2.4 K/mm3 (4.8-10.8)
[2023-09-24 08:59] LABS: MANUAL DIFFERENTIAL MANUAL DIFFERENTIAL (MANUAL DIFF)
[2023-09-24 09:06] LABS: Chloride 105 mmol/L (98-107); Potassium 3.9 mmoL/L (3.5-5.1); Sodium 138 mmol/L (136-145)
[2023-09-24 09:09] LABS: Alanine Aminotransferase 20 U/L (12-78); Albumin/Globulin Ratio 1.5 (1.1-1.8); Alkaline Phosphatase 72 U/L (38-126); Anion Gap 6.9 mEq/L (5-15); Aspartate Amino Transferase 30 U/L (17-59); Bilirubin,Total 0.6 mg/dl (0.2-1.3); Blood Urea Nitrogen 25 mg/dl (9-20); Calcium 8.7 mg/dl (8.4-10.2); Carbon Dioxide 30 mmol/L (22.0-30.0); Creatinine Clearance Estimated 66 mL/min (50-200); Estimated Glomerular Filt Rate 49 ml/min (>60); GFR (African American) 59 ML/MIN (>60); Globulin 2.7 g/dL (1.3-3.2); Glucose 122 mg/dl (74-100); Total Protein,Serum 6.7 g/dl (6.3-8.2)
--- NOTE | 2023-09-24 09:26 | PC.NURSE ---
0845 - BLOOD DRAWN FROM LEFT AC USING BUTTERFLY NEEDLE TO CHECK LABS PRIOR TO DR DUSTIN MCCLURE
[2023-09-24 09:29] LABS: Lymphocytes % 76 % (10-50); Macrocytosis 1+; Monocytes % 4 % (2-9); Neutrophils % 20 % (42-76); Platelet Estimate Marked Decrease; Total Cells Counted 25
[2023-09-26 10:27] LABS: Peripheral Smear Review Scanned Result
== END 2023-09-24 08:50 | disposition home or self-care (01) ==
LOC: INF 08:27
PROVIDERS: PCP Internal Medicine Adolescent Medicine; Visit Provider Internal Medicine Medical Oncology
DX: D46.Z Other myelodysplastic syndromes (principal)
CPT/HCPCS: 36415; 80053; 85007; 85025

== ENCOUNTER 2023-10-14 08:26 | Outpatient (CLI) | payer MEDICARE, MEDICAID, SELFPAY ==
[2023-10-14 08:35] VITALS: BMI 32.1
[2023-10-14 08:55] LABS: Basophils % 0.8 % (0.1-2.0); Eosinophils # 0.1 K/mm3 (0.0-0.4); Eosinophils % 4.5 % (0.1-12.0); Hematocrit 44.8 % (42.0-52.0); Hemoglobin 14.4 g/dL (14.1-18.0); Lymphocytes # 1.5 K/mm3 (0.7-4.5); Lymphocytes % 56.7 % (10-50); Mean Corpuscular HGB Conc 32.1 g/dL (31.8-35.4); Mean Corpuscular Hemoglobin 34.1 pg (27.0-31.2); Mean Corpuscular Volume 106.3 fl (80-94); Mean Platelet Volume 8.9 fl (7.4-10.4); Monocytes # 0.2 K/mm3 (0.1-1.0); Monocytes % 5.5 % (1.7-9.3); Neutrophils # 0.9 K/mm3 (1.8-7.8); Neutrophils % 32.6 % (37.0-80.0); Platelet Count 51 K/mm3 (142-424); Red Blood Count 4.22 M/mm3 (4.60-6.20); Red Cell Distribution Width 14.9 % (11.5-17.5); White Blood Count 2.7 K/mm3 (4.8-10.8)
[2023-10-14 09:06] LABS: Alanine Aminotransferase 20 U/L (12-78); Albumin Level 4.3 g/dl (3.5-5.0); Albumin/Globulin Ratio 1.4 (1.1-1.8); Alkaline Phosphatase 78 U/L (38-126); Anion Gap 6.6 mEq/L (5-15); Aspartate Amino Transferase 30 U/L (17-59); Bilirubin,Total 0.7 mg/dl (0.2-1.3); Blood Urea Nitrogen 24 mg/dl (9-20); Calcium 8.8 mg/dl (8.4-10.2); Carbon Dioxide 28 mmol/L (22.0-30.0); Chloride 105 mmol/L (98-107); Creatinine Clearance Estimated 77 mL/min (50-200); Estimated Glomerular Filt Rate 59 ml/min (>60); GFR (African American) 71 ML/MIN (>60); Glucose 91 mg/dl (74-100); Potassium 3.6 mmoL/L (3.5-5.1); Sodium 136 mmol/L (136-145); Total Protein,Serum 7.3 g/dl (6.3-8.2)
[2023-10-14 09:13] LABS: MANUAL DIFFERENTIAL MANUAL DIFFERENTIAL (MANUAL DIFF)
[2023-10-14 09:30] VITALS: BP 150/83; PULSE 63; RESP 18; TEMP 36.7; O2SAT 97
[2023-10-14] MEDS: PROCHLORPERAZINE 10MG TABLET 10 MG PO (09:30)
[2023-10-14] MEDS: SODIUM CHLORIDE 0.9% 10ML FLUSH SYRINGE 10 ML IV (09:42)
[2023-10-14] MEDS: SODIUM CHLORIDE 0.9% 50ML BAG 50 ML IV (09:43)
[2023-10-14 09:59] VITALS: BP 145/80; PULSE 67; RESP 18; O2SAT 97
[2023-10-14] MEDS: DECITABINE IV (09:59)
[2023-10-14] MEDS: SODIUM CHLORIDE 0.9% IV (09:59)
[2023-10-14 10:30] VITALS: BP 149/75; PULSE 68; RESP 18; O2SAT 98
[2023-10-14 10:54] LABS: Eosinophils % 4 % (0-3); Lymphocytes % 54 % (10-50); Monocytes % 6 % (2-9); Neutrophils % 28 % (42-76); Total Cells Counted 50
[2023-10-14 10:59] LABS: Macrocytosis 1+; Platelet Estimate Moderate Decrease
[2023-10-14 11:10] LABS: Anisocytosis 1+; Poikilocytosis 1+
[2023-10-14 11:15] VITALS: BP 140/57; PULSE 69; RESP 18; O2SAT 98
== END 2023-10-14 11:25 | disposition home or self-care (01) ==
LOC: INF 08:29
PROVIDERS: PCP Internal Medicine Adolescent Medicine; Visit Provider Internal Medicine Medical Oncology
DX: D46.9 Myelodysplastic syndrome, unspecified (principal)
CPT/HCPCS: 80053; 85007; 85025; 96413; J0894

== ENCOUNTER 2023-10-15 08:40 | Outpatient (CLI) | payer MEDICARE, MEDICAID, SELFPAY ==
[2023-10-15 09:00] VITALS: BP 138/77; PULSE 73; RESP 18; TEMP 36.8; O2SAT 99
[2023-10-15] MEDS: PROCHLORPERAZINE 10MG TABLET 10 MG PO (09:00)
[2023-10-15] MEDS: SODIUM CHLORIDE 0.9% 10ML FLUSH SYRINGE 10 ML IV (09:17)
[2023-10-15 09:36] VITALS: BP 148/64; PULSE 78; RESP 18; O2SAT 99
[2023-10-15] MEDS: SODIUM CHLORIDE 0.9% IV (09:36)
[2023-10-15] MEDS: SODIUM CHLORIDE 0.9% 50ML BAG 50 ML IV (09:36)
[2023-10-15] MEDS: DECITABINE IV (09:36)
[2023-10-15 10:06] VITALS: BP 136/71; PULSE 77; RESP 18; O2SAT 99
[2023-10-15 10:55] VITALS: BP 126/56; PULSE 76; RESP 18; O2SAT 98
== END 2023-10-15 11:00 | disposition home or self-care (01) ==
LOC: INF 08:42
PROVIDERS: PCP Internal Medicine Adolescent Medicine; Visit Provider Internal Medicine Medical Oncology
DX: D46.9 Myelodysplastic syndrome, unspecified (principal)
CPT/HCPCS: 96413; J0894

== ENCOUNTER 2023-10-16 08:16 | Outpatient (CLI) | payer MEDICARE, MEDICAID, SELFPAY ==
[2023-10-16] MEDS: SODIUM CHLORIDE 0.9% 50ML BAG 50 ML IV (08:34)
[2023-10-16 08:35] VITALS: BP 111/56; PULSE 80; RESP 18; TEMP 36.9; O2SAT 96
[2023-10-16] MEDS: PROCHLORPERAZINE 10MG TABLET 10 MG PO (08:35)
[2023-10-16] MEDS: SODIUM CHLORIDE 0.9% 10ML FLUSH SYRINGE 10 ML IV (08:35)
[2023-10-16 09:05] VITALS: BP 122/67; PULSE 78; RESP 18; O2SAT 97
[2023-10-16] MEDS: SODIUM CHLORIDE 0.9% IV (09:05)
[2023-10-16] MEDS: DECITABINE IV (09:05)
[2023-10-16 09:35] VITALS: BP 118/59; PULSE 79; RESP 18; O2SAT 97
[2023-10-16 10:20] VITALS: BP 108/57; PULSE 75; RESP 18; O2SAT 98
== END 2023-10-16 10:20 | disposition home or self-care (01) ==
LOC: INF 08:17
PROVIDERS: PCP Internal Medicine Adolescent Medicine; Visit Provider Internal Medicine Medical Oncology
DX: D46.9 Myelodysplastic syndrome, unspecified (principal)
CPT/HCPCS: 96413; J0894

== ENCOUNTER 2023-10-17 08:28 | Outpatient (CLI) | payer MEDICARE, MEDICAID, SELFPAY ==
[2023-10-17] MEDS: PROCHLORPERAZINE 10MG TABLET 10 MG PO (08:40)
[2023-10-17] MEDS: SODIUM CHLORIDE 0.9% IV (09:00)
[2023-10-17] MEDS: DECITABINE IV (09:00)
[2023-10-17] MEDS: SODIUM CHLORIDE 0.9% 50ML BAG 50 ML IV (09:01)
[2023-10-17 09:15] VITALS: BP 157/62; PULSE 71; RESP 18; TEMP 36.8; O2SAT 98
[2023-10-17 09:30] VITALS: BP 144/63; PULSE 69
[2023-10-17 09:45] VITALS: BP 148/60; PULSE 72
[2023-10-17 10:00] VITALS: BP 138/70; PULSE 71
[2023-10-17 10:15] VITALS: BP 151/65; PULSE 75
== END 2023-10-17 10:20 | disposition home or self-care (01) ==
LOC: INF 08:30
PROVIDERS: PCP Internal Medicine Adolescent Medicine; Visit Provider Internal Medicine Medical Oncology
DX: D46.21 Refractory anemia with excess of blasts 1 (principal)
CPT/HCPCS: 96413; J0894

== ENCOUNTER 2023-10-21 13:16 | Outpatient (CLI) | payer MEDICARE, MEDICAID, SELFPAY ==
[2023-10-21 13:21] VITALS: BMI 32.1
--- NOTE | 2023-10-21 13:30 | PC.NURSE ---
1330-collected weekly labs via venipuncture stick in left ac with butterfly needle;md will f/u with results.
[2023-10-21 13:42] LABS: Basophils % 0.6 % (0.1-2.0); Eosinophils # 0.1 K/mm3 (0.0-0.4); Eosinophils % 3.9 % (0.1-12.0); Hemoglobin 12.8 g/dL (14.1-18.0); Lymphocytes # 1.2 K/mm3 (0.7-4.5); Lymphocytes % 56.9 % (10-50); Mean Corpuscular HGB Conc 33.7 g/dL (31.8-35.4); Mean Corpuscular Hemoglobin 34.8 pg (27.0-31.2); Mean Corpuscular Volume 103.2 fl (80-94); Mean Platelet Volume 9.3 fl (7.4-10.4); Monocytes # 0.1 K/mm3 (0.1-1.0); Monocytes % 2.3 % (1.7-9.3); Neutrophils # 0.8 K/mm3 (1.8-7.8); Neutrophils % 36.3 % (37.0-80.0); Red Blood Count 3.68 M/mm3 (4.60-6.20); Red Cell Distribution Width 14.5 % (11.5-17.5); White Blood Count 2.2 K/mm3 (4.8-10.8)
[2023-10-21 13:51] LABS: Platelet Count 39 K/mm3 (142-424)
[2023-10-21 13:53] LABS: MANUAL DIFFERENTIAL MANUAL DIFFERENTIAL (MANUAL DIFF)
[2023-10-21 15:07] LABS: Eosinophils % 1 % (0-3); Lymphocytes % 56 % (10-50); Macrocytosis 1+; Monocytes % 3 % (2-9); Neutrophils % 40 % (42-76); Platelet Estimate Marked Decrease; Total Cells Counted 100
== END 2023-10-21 13:33 | disposition home or self-care (01) ==
PROVIDERS: PCP Internal Medicine Adolescent Medicine; Visit Provider Internal Medicine Medical Oncology
DX: D46.9 Myelodysplastic syndrome, unspecified (principal)
CPT/HCPCS: 36415; 85007; 85025

== ENCOUNTER 2023-10-29 11:34 | Outpatient (CLI) | payer MEDICARE, MEDICAID, SELFPAY ==
[2023-10-29 11:39] VITALS: BMI 32.1
[2023-10-29 12:03] LABS: Chloride 105 mmol/L (98-107); Potassium 4.4 mmoL/L (3.5-5.1); Sodium 138 mmol/L (136-145)
[2023-10-29 12:05] LABS: Alanine Aminotransferase 18 U/L (12-78); Aspartate Amino Transferase 25 U/L (17-59); Basophils % 0.4 % (0.1-2.0); Blood Urea Nitrogen 21 mg/dl (9-20); Creatinine Clearance Estimated 77 mL/min (50-200); Eosinophils # 0.1 K/mm3 (0.0-0.4); Estimated Glomerular Filt Rate 59 ml/min (>60); GFR (African American) 71 ML/MIN (>60); Hematocrit 35.9 % (42.0-52.0); Hemoglobin 12.5 g/dL (14.1-18.0); Lymphocytes # 1.2 K/mm3 (0.7-4.5); Lymphocytes % 66.9 % (10-50); Mean Corpuscular HGB Conc 34.7 g/dL (31.8-35.4); Mean Corpuscular Hemoglobin 35.5 pg (27.0-31.2); Mean Corpuscular Volume 102.2 fl (80-94); Mean Platelet Volume 10.6 fl (7.4-10.4); Monocytes # 0.1 K/mm3 (0.1-1.0); Monocytes % 7.8 % (1.7-9.3); Neutrophils # 0.4 K/mm3 (1.8-7.8); Red Blood Count 3.52 M/mm3 (4.60-6.20); White Blood Count 1.7 K/mm3 (4.8-10.8)
[2023-10-29 12:06] LABS: Albumin Level 3.8 g/dl (3.5-5.0); Albumin/Globulin Ratio 1.4 (1.1-1.8); Alkaline Phosphatase 71 U/L (38-126); Anion Gap 9.4 mEq/L (5-15); Bilirubin,Total 0.7 mg/dl (0.2-1.3); Calcium 8.8 mg/dl (8.4-10.2); Carbon Dioxide 28 mmol/L (22.0-30.0); Chol/HDL Ratio 3.6 (1-3.5); Cholesterol 129 mg/dl (140-200); Globulin 2.7 g/dL (1.3-3.2); Glucose 88 mg/dl (74-100); HDL Cholesterol 36 mg/dl (40-60); Total Protein,Serum 6.5 g/dl (6.3-8.2); Triglycerides 113 mg/dl (30-150); VLDL Cholesterol 23 mg/dL (0-40)
--- NOTE | 2023-10-29 12:06 | PC.NURSE ---
1140- cbc, cmp, and lipid panel drawn per MD orders via butterfly needle in left ac. needle removed and coban applied. pt tolerated well.
[2023-10-29 12:11] LABS: MANUAL DIFFERENTIAL MANUAL DIFFERENTIAL (MANUAL DIFF); Platelet Count 31 K/mm3 (142-424)
[2023-10-29 12:23] LABS: Direct LDL Cholesterol 70.86 mg/dL (100-129)
[2023-10-29 12:24] LABS: Lymphocytes % 88 % (10-50); Macrocytosis 1+; Monocytes % 4 % (2-9); Neutrophils % 8 % (42-76); Total Cells Counted 25
[2023-10-29 12:25] LABS: Platelet Estimate Marked Decrease
== END 2023-10-29 12:05 | disposition home or self-care (01) ==
LOC: INF 11:35
PROVIDERS: Nurse Practitioner Family; PCP Internal Medicine Adolescent Medicine; Visit Provider Internal Medicine Medical Oncology
DX: D46.9 Myelodysplastic syndrome, unspecified (principal); E78.2 Mixed hyperlipidemia
CPT/HCPCS: 36415; 80053; 80061; 85007; 85025

== ENCOUNTER 2023-11-07 08:18 | Outpatient (CLI) | payer MEDICARE, MEDICAID, SELFPAY ==
[2023-11-07 08:22] VITALS: BMI 32.1
[2023-11-07 08:32] LABS: Basophils % 1.5 % (0.1-2.0); Eosinophils % 1.3 % (0.1-12.0); Hematocrit 36.5 % (42.0-52.0); Hemoglobin 12.3 g/dL (14.1-18.0); Lymphocytes # 1.5 K/mm3 (0.7-4.5); Lymphocytes % 71.4 % (10-50); Mean Corpuscular HGB Conc 33.8 g/dL (31.8-35.4); Mean Corpuscular Hemoglobin 35.3 pg (27.0-31.2); Mean Corpuscular Volume 104.5 fl (80-94); Mean Platelet Volume 10.7 fl (7.4-10.4); Monocytes # 0.1 K/mm3 (0.1-1.0); Monocytes % 4.4 % (1.7-9.3); Neutrophils # 0.5 K/mm3 (1.8-7.8); Neutrophils % 21.4 % (37.0-80.0); Platelet Count 103 K/mm3 (142-424); Red Blood Count 3.49 M/mm3 (4.60-6.20); Red Cell Distribution Width 15.5 % (11.5-17.5); White Blood Count 2.1 K/mm3 (4.8-10.8)
[2023-11-07 08:52] LABS: Alanine Aminotransferase 18 U/L (12-78); Albumin Level 3.8 g/dl (3.5-5.0); Albumin/Globulin Ratio 1.4 (1.1-1.8); Alkaline Phosphatase 76 U/L (38-126); Anion Gap 10.6 mEq/L (5-15); Aspartate Amino Transferase 28 U/L (17-59); Bilirubin,Total 0.5 mg/dl (0.2-1.3); Blood Urea Nitrogen 21 mg/dl (9-20); Carbon Dioxide 26 mmol/L (22.0-30.0); Chloride 108 mmol/L (98-107); Creatinine Clearance Estimated 66 mL/min (50-200); Estimated Glomerular Filt Rate 49 ml/min (>60); GFR (African American) 59 ML/MIN (>60); Globulin 2.8 g/dL (1.3-3.2); Glucose 94 mg/dl (74-100); Potassium 3.6 mmoL/L (3.5-5.1); Sodium 141 mmol/L (136-145); Total Protein,Serum 6.6 g/dl (6.3-8.2)
[2023-11-07 08:55] LABS: MANUAL DIFFERENTIAL MANUAL DIFFERENTIAL (MANUAL DIFF)
--- NOTE | 2023-11-07 08:59 | PC.NURSE ---
0824- cbc and cmp drawn per MD order via butterfly needle in left ac. pt tolerated well and is going to oncology appt at this time.
[2023-11-07 09:24] LABS: Eosinophils % 2 % (0-3); Lymphocytes % 76 % (10-50); Monocytes % 2 % (2-9); Neutrophils % 18 % (42-76); Total Cells Counted 50
[2023-11-07 09:30] LABS: Anisocytosis 1+; Macrocytosis 1+; Platelet Estimate Slight Decrease
[2023-11-07 09:31] LABS: Poikilocytosis 1+
[2023-11-07 09:32] LABS: Rouleaux 1+
== END 2023-11-07 08:29 | disposition home or self-care (01) ==
LOC: INF 08:18
PROVIDERS: PCP Internal Medicine Adolescent Medicine; Visit Provider Internal Medicine Medical Oncology
DX: D46.Z Other myelodysplastic syndromes (principal)
CPT/HCPCS: 36415; 80053; 85007; 85025

== ENCOUNTER 2023-11-13 08:51 | Outpatient (CLI) | payer MEDICARE, MEDICAID, SELFPAY ==
[2023-11-13 08:57] VITALS: BMI 32.0
--- NOTE | 2023-11-13 09:00 | PC.NURSE ---
11/13/23 0900 pt present for lab draw prior to md appt. Venipuncture performed to pt's lt ac x 1 stick using butterfly access needle per Svitlana Tse RN. Blood drawn for labs and specimen sent to lab for analysis. Pt ambulated to clinic for md appt.
[2023-11-13 09:09] LABS: Basophils # 0.1 K/mm3 (0-0.2); Basophils % 2.8 % (0.1-2.0); Eosinophils % 1.5 % (0.1-12.0); Hematocrit 38.1 % (42.0-52.0); Hemoglobin 12.7 g/dL (14.1-18.0); Lymphocytes # 1.6 K/mm3 (0.7-4.5); Mean Corpuscular HGB Conc 33.4 g/dL (31.8-35.4); Mean Corpuscular Hemoglobin 35.3 pg (27.0-31.2); Mean Corpuscular Volume 105.5 fl (80-94); Mean Platelet Volume 9.2 fl (7.4-10.4); Monocytes # 0.1 K/mm3 (0.1-1.0); Monocytes % 3.9 % (1.7-9.3); Neutrophils # 0.6 K/mm3 (1.8-7.8); Neutrophils % 25.7 % (37.0-80.0); Platelet Count 111 K/mm3 (142-424); Red Blood Count 3.62 M/mm3 (4.60-6.20); Red Cell Distribution Width 15.3 % (11.5-17.5); White Blood Count 2.5 K/mm3 (4.8-10.8)
[2023-11-13 09:11] LABS: MANUAL DIFFERENTIAL MANUAL DIFFERENTIAL (MANUAL DIFF)
[2023-11-13 10:31] LABS: Eosinophils % 2 % (0-3); Lymphocytes % 70 % (10-50); Macrocytosis 2+; Monocytes % 6 % (2-9); Neutrophils % 22 % (42-76); Platelet Estimate Slight Decrease; RBC Morphology Normal; Total Cells Counted 50
== END 2023-11-13 09:02 | disposition home or self-care (01) ==
LOC: INF 08:52
PROVIDERS: PCP Internal Medicine Adolescent Medicine; Visit Provider Internal Medicine Medical Oncology
DX: D46.9 Myelodysplastic syndrome, unspecified (principal)
CPT/HCPCS: 36415; 85007; 85025

== ENCOUNTER 2023-11-17 08:00 | Outpatient (CLI) | payer MEDICARE, MEDICAID, SELFPAY ==
[2023-11-17] MEDS: PROCHLORPERAZINE 10MG TABLET 10 MG PO ×2 (08:12)
[2023-11-17 08:24] VITALS: BMI 31.6
[2023-11-17 08:45] LABS: Basophils % 1.2 % (0.1-2.0); Eosinophils # 0.1 K/mm3 (0.0-0.4); Eosinophils % 3.5 % (0.1-12.0); Hematocrit 38.2 % (42.0-52.0); Lymphocytes # 1.5 K/mm3 (0.7-4.5); Lymphocytes % 47.1 % (10-50); Mean Corpuscular Hemoglobin 35.6 pg (27.0-31.2); Mean Corpuscular Volume 104.7 fl (80-94); Mean Platelet Volume 8.7 fl (7.4-10.4); Monocytes # 0.2 K/mm3 (0.1-1.0); Monocytes % 6.4 % (1.7-9.3); Neutrophils # 1.3 K/mm3 (1.8-7.8); Neutrophils % 41.8 % (37.0-80.0); Platelet Count 89 K/mm3 (142-424); Red Blood Count 3.65 M/mm3 (4.60-6.20); Red Cell Distribution Width 15.1 % (11.5-17.5); White Blood Count 3.1 K/mm3 (4.8-10.8)
[2023-11-17] MEDS: 0.9 % SODIUM CHLORIDE 50 ML 100 ML IV (09:05)
[2023-11-17] MEDS: DECITABINE IV (09:05)
[2023-11-17] MEDS: SODIUM CHLORIDE 0.9% IV (09:05)
[2023-11-17 09:10] VITALS: BP 155/74; PULSE 80; RESP 18; O2SAT 95
--- NOTE | 2023-11-17 10:10 | PC.NURSE ---
1010-c.aleida akhtar hung and scanned chemo infusion;also cosigned charting for kalyanirna
[2023-11-17 10:25] VITALS: BP 146/82; PULSE 85; RESP 18; O2SAT 95
== END 2023-11-17 10:10 | disposition home or self-care (01) ==
LOC: INF 08:02
PROVIDERS: PCP Internal Medicine Adolescent Medicine; Visit Provider Internal Medicine Medical Oncology
DX: D46.9 Myelodysplastic syndrome, unspecified (principal)
CPT/HCPCS: 85025; 96413; J0894

== ENCOUNTER 2023-11-18 08:13 | Outpatient (CLI) | payer MEDICARE, MEDICAID, SELFPAY ==
[2023-11-18] MEDS: PROCHLORPERAZINE 10MG TABLET 10 MG PO (08:20)
[2023-11-18] MEDS: 0.9 % SODIUM CHLORIDE 50 ML 100 ML IV (08:48)
[2023-11-18] MEDS: SODIUM CHLORIDE 0.9% IV (08:48)
[2023-11-18] MEDS: DECITABINE IV (08:48)
[2023-11-18 08:52] VITALS: BP 150/62; PULSE 86; RESP 18; TEMP 36.6; O2SAT 96
[2023-11-18 10:08] VITALS: BP 136/82; PULSE 78; RESP 18; O2SAT 96
== END 2023-11-18 10:08 | disposition home or self-care (01) ==
LOC: INF 08:14
PROVIDERS: PCP Internal Medicine Adolescent Medicine; Visit Provider Internal Medicine Medical Oncology
DX: D46.Z Other myelodysplastic syndromes (principal)
CPT/HCPCS: 96413; J0894

== ENCOUNTER 2023-11-19 08:13 | Outpatient (CLI) | payer MEDICARE, MEDICAID, SELFPAY ==
[2023-11-19] MEDS: PROCHLORPERAZINE 10MG TABLET 10 MG PO (08:25)
[2023-11-19] MEDS: SODIUM CHLORIDE 0.9% IV (08:59)
[2023-11-19] MEDS: DECITABINE IV (08:59)
[2023-11-19] MEDS: SODIUM CHLORIDE 0.9% 50ML BAG 50 ML IV (09:00)
[2023-11-19 09:01] VITALS: BP 140/71; PULSE 84; RESP 18; TEMP 36.6; O2SAT 97
[2023-11-19 09:30] VITALS: BP 137/81; PULSE 79
[2023-11-19 10:00] VITALS: BP 128/78; PULSE 81; RESP 18; O2SAT 97
== END 2023-11-19 10:10 | disposition home or self-care (01) ==
LOC: INF 08:14
PROVIDERS: PCP Internal Medicine Adolescent Medicine; Visit Provider Internal Medicine Medical Oncology
DX: D46.Z Other myelodysplastic syndromes (principal)
CPT/HCPCS: 96413; J0894

== ENCOUNTER 2023-11-20 08:06 | Outpatient (CLI) | payer MEDICARE, MEDICAID, SELFPAY ==
[2023-11-20] MEDS: SODIUM CHLORIDE 0.9% 50ML BAG 50 ML IV (08:17)
[2023-11-20] MEDS: PROCHLORPERAZINE 10MG TABLET 10 MG PO (08:17)
[2023-11-20] MEDS: SODIUM CHLORIDE 0.9% IV (08:51)
[2023-11-20] MEDS: DECITABINE IV (08:51)
[2023-11-20 08:55] VITALS: BP 136/61; PULSE 79; RESP 17; TEMP 37.5; O2SAT 94
[2023-11-20 09:10] VITALS: BP 146/63; PULSE 76; RESP 16
[2023-11-20 09:25] VITALS: BP 156/92; PULSE 71; RESP 16
[2023-11-20 09:40] VITALS: BP 145/64; PULSE 73; RESP 16
[2023-11-20 09:55] VITALS: BP 152/73; PULSE 69; RESP 17; TEMP 37.4
== END 2023-11-20 10:05 | disposition home or self-care (01) ==
LOC: INF 08:08
PROVIDERS: PCP Internal Medicine Adolescent Medicine; Visit Provider Internal Medicine Medical Oncology
DX: D46.Z Other myelodysplastic syndromes (principal); Z79.899 Other long term (current) drug therapy
CPT/HCPCS: 96413; J0894

== ENCOUNTER 2023-11-21 08:12 | Outpatient (CLI) | payer MEDICARE, MEDICAID, SELFPAY ==
[2023-11-21] MEDS: PROCHLORPERAZINE 10MG TABLET 10 MG PO (08:19)
[2023-11-21] MEDS: 0.9 % SODIUM CHLORIDE 50 ML 100 ML IV (08:19)
[2023-11-21] MEDS: DECITABINE IV (08:45)
[2023-11-21] MEDS: SODIUM CHLORIDE 0.9% IV (08:45)
[2023-11-21 08:50] VITALS: BP 114/72; PULSE 87; RESP 17; TEMP 36.8; O2SAT 96
[2023-11-21 09:05] VITALS: BP 148/71; PULSE 77; RESP 16
[2023-11-21 09:20] VITALS: BP 142/71; PULSE 73; RESP 16
[2023-11-21 09:35] VITALS: BP 146/64; PULSE 75; RESP 16
[2023-11-21 09:50] VITALS: BP 137/64; PULSE 74; RESP 17
== END 2023-11-21 10:00 | disposition home or self-care (01) ==
LOC: INF 08:12
PROVIDERS: PCP Internal Medicine Adolescent Medicine; Visit Provider Internal Medicine Medical Oncology
DX: D46.Z Other myelodysplastic syndromes (principal)
CPT/HCPCS: 96413; J0894

== ENCOUNTER 2023-11-27 11:12 | Outpatient (CLI) | payer MEDICARE, MEDICAID, SELFPAY | END 2023-11-27 23:59 | LOC: INF 11:12 | PROVIDERS: PCP Internal Medicine Adolescent Medicine; Visit Provider Internal Medicine Medical Oncology | DX: D46.9 Myelodysplastic syndrome, unspecified (principal) ==

== ENCOUNTER 2023-12-12 08:39 | Outpatient (CLI) | payer MEDICARE, MEDICAID, SELFPAY ==
[2023-12-12 08:44] VITALS: BMI 31.6
[2023-12-12 09:04] LABS: Basophils # 0.1 K/mm3 (0-0.2); Basophils % 1.8 % (0.1-2.0); Eosinophils # 0.1 K/mm3 (0.0-0.4); Eosinophils % 2.7 % (0.1-12.0); Hematocrit 35.9 % (42.0-52.0); Hemoglobin 11.7 g/dL (14.1-18.0); Lymphocytes # 1.8 K/mm3 (0.7-4.5); Lymphocytes % 70.6 % (10-50); Mean Corpuscular HGB Conc 32.7 g/dL (31.8-35.4); Mean Corpuscular Hemoglobin 36.4 pg (27.0-31.2); Mean Corpuscular Volume 111.5 fl (80-94); Mean Platelet Volume 9.3 fl (7.4-10.4); Monocytes # 0.1 K/mm3 (0.1-1.0); Monocytes % 4.1 % (1.7-9.3); Neutrophils # 0.5 K/mm3 (1.8-7.8); Neutrophils % 20.7 % (37.0-80.0); Platelet Count 126 K/mm3 (142-424); Red Blood Count 3.22 M/mm3 (4.60-6.20); Red Cell Distribution Width 16.2 % (11.5-17.5); White Blood Count 2.5 K/mm3 (4.8-10.8)
--- NOTE | 2023-12-12 09:10 | PC.NURSE ---
0848- C,Carmencita RN collected labs via puncture stick in left ac. Patient to MD appointment.
[2023-12-12 09:13] LABS: MANUAL DIFFERENTIAL MANUAL DIFFERENTIAL (MANUAL DIFF)
[2023-12-12 09:29] LABS: Alanine Aminotransferase 22 U/L (12-78); Albumin Level 3.9 g/dl (3.5-5.0); Albumin/Globulin Ratio 1.3 (1.1-1.8); Alkaline Phosphatase 87 U/L (38-126); Anion Gap 9.3 mEq/L (5-15); Aspartate Amino Transferase 34 U/L (17-59); Bilirubin,Total 0.5 mg/dl (0.2-1.3); Blood Urea Nitrogen 22 mg/dl (9-20); Calcium 9.3 mg/dl (8.4-10.2); Carbon Dioxide 26 mmol/L (22.0-30.0); Chloride 107 mmol/L (98-107); Creatinine Clearance Estimated 65 mL/min (50-200); Estimated Glomerular Filt Rate 49 ml/min (>60); GFR (African American) 59 ML/MIN (>60); Globulin 3.1 g/dL (1.3-3.2); Glucose 104 mg/dl (74-100); Potassium 4.3 mmoL/L (3.5-5.1); Sodium 138 mmol/L (136-145)
[2023-12-12 10:55] LABS: Eosinophils % 4 % (0-3); Lymphocytes % 73 % (10-50); Monocytes % 1 % (2-9); Neutrophils % 22 % (42-76); Total Cells Counted 100
[2023-12-12 10:56] LABS: Anisocytosis 2+; Macrocytosis 2+; Ovalocytes 1+; Platelet Estimate Slight Decrease
== END 2023-12-12 08:45 | disposition home or self-care (01) ==
LOC: INF 08:40
PROVIDERS: PCP Internal Medicine Adolescent Medicine; Visit Provider Internal Medicine Medical Oncology
DX: D46.9 Myelodysplastic syndrome, unspecified (principal)
CPT/HCPCS: 36415; 80053; 85007; 85025

== ENCOUNTER 2023-12-15 08:10 | Outpatient (CLI) | payer MEDICARE, MEDICAID, SELFPAY ==
[2023-12-15] MEDS: SODIUM CHLORIDE 0.9% 50ML BAG 50 ML IV (08:28)
[2023-12-15] MEDS: PROCHLORPERAZINE 10MG TABLET 10 MG PO (08:28)
[2023-12-15 08:29] VITALS: BP 144/82; PULSE 104; RESP 20; TEMP 36.6; O2SAT 98
[2023-12-15] MEDS: SODIUM CHLORIDE 0.9% 10ML FLUSH SYRINGE 10 ML IV (08:29)
[2023-12-15 09:02] VITALS: BP 142/78; PULSE 96; RESP 20; O2SAT 98
[2023-12-15] MEDS: DECITABINE IV (09:02)
[2023-12-15] MEDS: SODIUM CHLORIDE 0.9% IV (09:02)
[2023-12-15 09:32] VITALS: BP 141/77; PULSE 95; RESP 20; O2SAT 97
[2023-12-15 10:10] VITALS: BP 156/74; PULSE 86; RESP 20; O2SAT 98
== END 2023-12-15 10:19 | disposition home or self-care (01) ==
LOC: INF 08:11
PROVIDERS: PCP Internal Medicine Adolescent Medicine; Visit Provider Internal Medicine Medical Oncology
DX: D46.22 Refractory anemia with excess of blasts 2 (principal); D46.9 Myelodysplastic syndrome, unspecified
CPT/HCPCS: 96413; J0894

== ENCOUNTER 2023-12-16 08:09 | Outpatient (CLI) | payer MEDICARE, MEDICAID, SELFPAY ==
[2023-12-16 08:25] VITALS: BP 156/78; PULSE 98; RESP 18; TEMP 36.3; O2SAT 98
[2023-12-16] MEDS: PROCHLORPERAZINE 10MG TABLET 10 MG PO (08:25)
[2023-12-16] MEDS: SODIUM CHLORIDE 0.9% 50ML BAG 50 ML IV (08:32)
[2023-12-16] MEDS: SODIUM CHLORIDE 0.9% 10ML FLUSH SYRINGE 10 ML IV (08:33)
[2023-12-16 08:56] VITALS: BP 146/76; PULSE 83; RESP 18; O2SAT 98
[2023-12-16] MEDS: DECITABINE IV (08:56)
[2023-12-16] MEDS: SODIUM CHLORIDE 0.9% IV (08:56)
[2023-12-16 09:26] VITALS: BP 141/77; PULSE 80; RESP 18; O2SAT 98
[2023-12-16 10:15] VITALS: BP 138/72; PULSE 71; RESP 18; O2SAT 98
== END 2023-12-16 10:20 | disposition home or self-care (01) ==
LOC: INF 08:10
PROVIDERS: PCP Internal Medicine Adolescent Medicine; Visit Provider Internal Medicine Medical Oncology
DX: D46.21 Refractory anemia with excess of blasts 1 (principal); Z79.899 Other long term (current) drug therapy
CPT/HCPCS: 96413; J0894

== ENCOUNTER 2023-12-17 08:01 | Outpatient (CLI) | payer MEDICARE, MEDICAID, SELFPAY ==
[2023-12-17] MEDS: SODIUM CHLORIDE 0.9% 50ML BAG 50 ML IV (08:14)
[2023-12-17] MEDS: PROCHLORPERAZINE 10MG TABLET 10 MG PO (08:15)
[2023-12-17] MEDS: DECITABINE IV (08:47)
[2023-12-17] MEDS: SODIUM CHLORIDE 0.9% IV (08:47)
[2023-12-17 08:53] VITALS: BP 157/77; PULSE 86; RESP 17; O2SAT 96
[2023-12-17 09:08] VITALS: BP 154/70; PULSE 83; RESP 16
[2023-12-17 09:23] VITALS: BP 151/66; PULSE 80; RESP 16
[2023-12-17 09:38] VITALS: BP 160/52; PULSE 82; RESP 16
[2023-12-17 09:53] VITALS: BP 164/42; PULSE 83; RESP 16
== END 2023-12-17 10:15 | disposition home or self-care (01) ==
LOC: INF 08:02
PROVIDERS: PCP Internal Medicine Adolescent Medicine; Visit Provider Internal Medicine Medical Oncology
DX: D46.21 Refractory anemia with excess of blasts 1 (principal); Z79.899 Other long term (current) drug therapy
CPT/HCPCS: 96413; J0894

== ENCOUNTER 2023-12-18 08:06 | Outpatient (CLI) | payer MEDICARE, MEDICAID, SELFPAY ==
[2023-12-18] MEDS: PROCHLORPERAZINE 10MG TABLET 10 MG PO (08:10)
[2023-12-18] MEDS: 0.9 % SODIUM CHLORIDE 50 ML 100 ML IV (08:42)
[2023-12-18] MEDS: DECITABINE IV (08:42)
[2023-12-18] MEDS: SODIUM CHLORIDE 0.9% IV (08:42)
[2023-12-18 08:45] VITALS: BP 142/75; PULSE 78; RESP 18; O2SAT 95
[2023-12-18 10:03] VITALS: BP 162/78; PULSE 70; RESP 18; O2SAT 95
== END 2023-12-18 10:03 | disposition home or self-care (01) ==
LOC: INF 08:07
PROVIDERS: PCP Internal Medicine Adolescent Medicine; Visit Provider Internal Medicine Medical Oncology
DX: D46.21 Refractory anemia with excess of blasts 1 (principal); Z79.899 Other long term (current) drug therapy
CPT/HCPCS: 96413; J0894

== ENCOUNTER 2023-12-19 07:59 | Outpatient (CLI) | payer MEDICARE, MEDICAID, SELFPAY ==
[2023-12-19] MEDS: PROCHLORPERAZINE 10MG TABLET 10 MG PO (08:10)
[2023-12-19] MEDS: SODIUM CHLORIDE 0.9% IV (08:39)
[2023-12-19] MEDS: DECITABINE IV (08:39)
[2023-12-19 08:45] VITALS: BP 138/71; PULSE 81; RESP 18; TEMP 37.4; O2SAT 97
[2023-12-19 09:45] VITALS: BP 134/68; PULSE 76; O2SAT 98
== END 2023-12-19 09:50 | disposition home or self-care (01) ==
LOC: INF 08:00
PROVIDERS: PCP Internal Medicine Adolescent Medicine; Visit Provider Internal Medicine Medical Oncology
DX: D46.21 Refractory anemia with excess of blasts 1 (principal); Z79.899 Other long term (current) drug therapy
CPT/HCPCS: 96413; J0894

== ENCOUNTER 2024-01-05 09:54 | Outpatient (CLI) | payer MEDICARE, MEDICAID, SELFPAY | END 2024-01-05 23:59 | PROVIDERS: PCP Internal Medicine Adolescent Medicine; Visit Provider Physician Assistant | DX: I48.91 Unspecified atrial fibrillation (principal); Z87.891 Personal history of nicotine dependence; R94.31 Abnormal electrocardiogram [ECG] [EKG]; R06.09 Other forms of dyspnea; D46.9 Myelodysplastic syndrome, unspecified; Z01.810 Encounter for preprocedural cardiovascular examination | CPT/HCPCS: 93270 ==

== ENCOUNTER 2024-01-06 08:18 | Outpatient (CLI) | payer MEDICARE, MEDICAID, SELFPAY ==
[2024-01-06 08:26] VITALS: BMI 30.5
--- NOTE | 2024-01-06 08:40 | PC.NURSE ---
0835 CBC/CMP labs collected via venipuncture with butterfly needle to L AC x 1 stick. Patient has appointment with Dr. Whitt at 0900 this am. Patient tolerated well.
[2024-01-06 08:47] LABS: Basophils % 1.6 % (0.1-2.0); Eosinophils # 0.1 K/mm3 (0.0-0.4); Eosinophils % 3.6 % (0.1-12.0); Hematocrit 32.6 % (42.0-52.0); Hemoglobin 10.6 g/dL (14.1-18.0); Lymphocytes # 1.4 K/mm3 (0.7-4.5); Lymphocytes % 65.5 % (10-50); Mean Corpuscular HGB Conc 32.5 g/dL (31.8-35.4); Mean Corpuscular Hemoglobin 36.7 pg (27.0-31.2); Mean Platelet Volume 8.9 fl (7.4-10.4); Monocytes % 0.9 % (1.7-9.3); Neutrophils # 0.6 K/mm3 (1.8-7.8); Neutrophils % 28.5 % (37.0-80.0); Platelet Count 99 K/mm3 (142-424); Red Blood Count 2.88 M/mm3 (4.60-6.20); Red Cell Distribution Width 16.7 % (11.5-17.5); White Blood Count 2.1 K/mm3 (4.8-10.8)
[2024-01-06 09:00] LABS: MANUAL DIFFERENTIAL MANUAL DIFFERENTIAL (MANUAL DIFF)
[2024-01-06 09:07] LABS: Alanine Aminotransferase 21 U/L (12-78); Albumin Level 3.8 g/dl (3.5-5.0); Albumin/Globulin Ratio 1.3 (1.1-1.8); Alkaline Phosphatase 90 U/L (38-126); Aspartate Amino Transferase 31 U/L (17-59); Bilirubin,Total 0.5 mg/dl (0.2-1.3); Blood Urea Nitrogen 27 mg/dl (9-20); Calcium 9.5 mg/dl (8.4-10.2); Carbon Dioxide 25 mmol/L (22.0-30.0); Chloride 108 mmol/L (98-107); Creatinine Clearance Estimated 63 mL/min (50-200); Estimated Glomerular Filt Rate 49 ml/min (>60); GFR (African American) 59 ML/MIN (>60); Globulin 2.9 g/dL (1.3-3.2); Glucose 128 mg/dl (74-100); Sodium 138 mmol/L (136-145); Total Protein,Serum 6.7 g/dl (6.3-8.2)
[2024-01-06 09:47] LABS: Eosinophils % 1 % (0-3); Lymphocytes % 80 % (10-50); Macrocytosis 2+; Monocytes % 1 % (2-9); Neutrophils % 18 % (42-76); Platelet Estimate Moderate Decrease; Total Cells Counted 100
== END 2024-01-06 23:59 ==
PROVIDERS: PCP Internal Medicine Adolescent Medicine; Visit Provider Internal Medicine Medical Oncology
DX: D46.9 Myelodysplastic syndrome, unspecified (principal); D46.21 Refractory anemia with excess of blasts 1
CPT/HCPCS: 36415; 80053; 85007; 85025

== ENCOUNTER 2024-01-15 04:40 | Emergency (ER) | payer MEDICARE, MEDICAID, SELFPAY ==
[2024-01-15] VITALS (9 sets, daily range): BP systolic 144–172; BP diastolic 71–91; PULSE 72–102; RESP 16–20; TEMP 36.6; O2SAT 97–99; BMI 30.6
--- NOTE | 2024-01-15 04:53 | ED_ITS ---
Discharge Plan Disposition Patient Disposition: Home, Self-Care Prescriptions Prescriptions: New omeprazole 20 mg capsule,delayed release(DR/EC) 20 mg PO DAILY 28 Days Qty: 28 0RF No Action tamsulosin [Flomax] 0.4 mg capsule 0.8 mg PO HS meloxicam 15 mg tablet 15 mg PO DAILY atorvastatin 40 mg tablet 20 mg PO DAILY cyclobenzaprine 10 mg tablet 10 mg PO DAILY buspirone 10 mg tablet 10 mg PO DAILY fluconazole 200 mg tablet 200 mg PO DAILY oxycodone-acetaminophen 7.5-325 mg tablet 1 tab PO Q8H escitalopram oxalate 20 mg tablet 20 mg PO DAILY multivitamin 1 EACH tablet 1 each PO DAILY Referrals Follow up/Referrals: Darian Brunner MD [Primary Care Provider] - See instructions Activity Restrictions/Add. Instructions Additional Instructions/Restrictions: At this time it was felt you are safe to be discharged home. If new or worsening symptoms please do not hesitate to return the emergency department. Today it was found that part of your stomach and small bowel is inflamed which is likely due to acid reflux. Please take your medication as prescribed and follow-up with Dr. Brunner to keep an eye on this within 2 weeks. Clinical Impressions Clinical Impression: Abdominal pain, Acid reflux Instructions Patient Instructions: DI for Acute Abdominal Pain Discharge ED Provider: Matt Robbins General Adult HPI <Dane Davidson MD - Last Filed: 01/15/24 07:07> General Chief complaint: Abdominal Pain Stated complaint: swollen testicle, abd pain, has mbs, incontinence Time Seen by Provider: 01/15/24 04:45 History of Present Illness HPI narrative: 78-year-old male with history of myelodysplastic syndrome, bilateral spermatoceles, recent onset A-fib presents for multiple complaints. He reports that his testicles have been a little bit more swollen than normal for the last week or so. This morning and around 2 AM he developed relatively sudden onset and severe generalized abdominal pain, worse in the lower aspect. His abdominal pain has essentially resolved by the time he arrived to the ED. Patient reports normal bowel function, last bowel movement yesterday, still passing gas. Related Data Home Medications Medication Instructions Recorded Confirmed tamsulosin 0.4 mg capsule (Flomax) 0.8 mg PO HS Prostate issues 07/30/18 01/15/24 multivitamin 1 each PO DAILY Supplement 10/15/20 01/15/24 meloxicam 15 mg tablet 15 mg PO DAILY pain 04/19/21 01/15/24 oxycodone-acetaminophen 7.5 mg-325 1 tab PO Q8H Pain 06/14/21 01/15/24 mg tablet cyclobenzaprine 10 mg tablet 10 mg PO DAILY muscle relaxer 07/30/22 01/15/24 atorvastatin 40 mg tablet 20 mg PO DAILY Cholesterol 08/20/22 01/15/24 escitalopram oxalate 20 mg tablet 20 mg PO DAILY Depression 03/28/23 01/15/24 buspirone 10 mg tablet 10 mg PO DAILY 08/14/23 01/15/24 fluconazole 200 mg tablet 200 mg PO DAILY preventative 12/12/23 01/15/24 Previous Rx's Medication Instructions Recorded omeprazole 20 mg capsule,delayed 20 mg PO DAILY 4 weeks #28 caps 01/15/24 release Allergies Allergy/AdvReac Type Severity Reaction Status Date / Time No Known Allergies Allergy Verified 01/15/24 05:18 PFS <Dane Davidson MD - Last Filed: 01/15/24 07:07> PFS Disclaimer: The information contained in this section may have been updated after the patient was seen, as this information can be updated by other users. Medical History History of compression fracture of spine DJD (degenerative joint disease) Chronic back pain MDS (myelodysplastic syndrome) Anxiety BPH (benign prostatic hyperplasia) Kidney stones GERD (gastroesophageal reflux disease) Atrial fibrillation History of hoarseness History of chemotherapy Hypertension Hyperlipidemia Heart murmur Cancer Surgical History History of bone marrow biopsy Family History Other Asthma Cancer Heart attack Stroke Social History Smoking Status: Never smoker alcohol intake: current substance use type: denies use current occupational status: retired Travel in the last 8 weeks: None household members: significant other housing: house current occupational exposures/hazards: No caffeine: Yes <Dane Davidson MD - Last Filed: 01/15/24 07:07> ROS Obtained: Yes All systems reviewed & no additional complaints except as documented Physical Exam <Dane Davidson MD - Last Filed: 01/15/24 07:07> General General appearance: alert and in no apparent distress Head Head exam: atraumatic and normocephalic Eye Eye exam: Present normal appearance, PERRL and EOMI ENT ENT exam: Present normal oropharynx and normal external ear exam Neck Neck exam: Present normal inspection and full ROM Chest Chest inspection: Present normal inspection and symmetric chest wall rise; Absent tenderness Respiratory Respiratory exam: Present normal lung sounds bilaterally; Absent respiratory distress Cardiovascular Cardiovascular exam: Present regular rate and normal rhythm Abdominal Exam Abdominal exam: Present soft and distention; Absent tenderness or guarding exam: Present other (Penis and scrotum are normal in appearance. Testicles are nontender, there is a fullness proximal to the bilateral testicles) Extremities Exam Extremities exam: Present normal inspection; Absent edema or joint swelling Back Exam Back exam: Present normal inspection; Absent tenderness Neurological Exam Neurological exam: Present alert and oriented X3; Absent motor sensory deficit Psychiatric Psychiatric exam: Present normal affect and normal mood Skin Skin exam: Present warm, dry and normal color Lymphatic Lymphatic Findings: no adenopathy Medical Decision Making <Dane Davidson MD - Last Filed: 01/15/24 07:07> Medical Records Medical records reviewed: Yes I reviewed the patient's medical records. Moose Inquiry Pt receiving controlled substance: No Moose was queried for this patient: No Vital Signs: 01/15/24 04:56 01/15/24 05:00 01/15/24 05:06 Temperature 97.8 F Temperature Source Oral Pulse Rate 99 H 89 Pulse Rate [Left Radial] 102 H Respiratory Rate 20 18 20 Blood Pressure 150/71 H 165/83 H Blood Pressure [Right Arm] 150/71 H Blood Pressure Mean 102 110 Blood Pressure Mean [Right Arm] 97 Blood Pressure Source [Right Arm] Automatic Cuff Blood Pressure Position [Right Arm] Sitting 02 Sat by Pulse Oximetry 98 98 97 Oxygen Delivery Method Room Air Room Air Room Air 01/15/24 05:30 01/15/24 06:00 01/15/24 06:30 Temperature Temperature Source Pulse Rate 82 82 84 Pulse Rate [Left Radial] Respiratory Rate 16 20 18 Blood Pressure 157/75 H 155/78 H 163/84 H Blood Pressure [Right Arm] Blood Pressure Mean 118 115 109 Blood Pressure Mean [Right Arm] Blood Pressure Source [Right Arm] Blood Pressure Position [Right Arm] 02 Sat by Pulse Oximetry 97 97 98 Oxygen Delivery Method Room Air Room Air Room Air 01/15/24 07:30 01/15/24 08:00 Temperature Temperature Source Pulse Rate 72 78 Pulse Rate [Left Radial] Respiratory Rate 20 Blood Pressure 172/91 H 144/76 H Blood Pressure [Right Arm] Blood Pressure Mean 118 98 Blood Pressure Mean [Right Arm] Blood Pressure Source [Right Arm] Blood Pressure Position [Right Arm] 02 Sat by Pulse Oximetry 99 98 Oxygen Delivery Method Room Air Lab Data Lab results reviewed: Yes I reviewed the patient's lab results. Lab Results 01/15/24 05:14: WBC 2.3 L, RBC 2.93 L, Hgb 10.5 L, Hct 33.1 L, MCV 112.7 H, MCH 35.7 H, MCHC 31.6 L, RDW 15.9, Plt Count 168, MPV 9.1, Neut % (Auto) 41.3, Lymph % (Auto) 51.6 H, Barron % (Auto) 4.4, Eos % (Auto) 2.6, Baso % (Auto) 2.6 H, Neut # (Auto) 1.0 L, Lymph # (Auto) 1.2, Barron # (Auto) 0.1, Eos # (Auto) 0.1, Baso # (Auto) 0.1, Total Counted 100, Neutrophils % (Manual) 59, Lymphocytes % (Manual) 34, Monocytes % (Manual) 2, Eosinophils % (Manual) 2, Metamyelocytes % 3.0 H, Platelet Estimate Normal, RBC Morphology Normal, Sodium 139, Potassium 3.8, C hloride 108 H, Carbon Dioxide 27, Anion Gap 7.8, BUN 30 H, Creatinine 1.30 H, Estimated Creat Clear 68, Estimated GFR 53 L, Est GFR ( Amer) 65, Glucose 126 H, Calcium 9.5, Total Bilirubin 0.4, AST 31, ALT 21, Alkaline Phosphatase 101, Total Protein 6.7, Albumin 3.7, Globulin 3.0, Albumin/Globulin Ratio 1.2, Lipase 34 01/15/24 06:25: Urine Color Yellow, Urine Appearance Clear, Urine pH 5.5, Ur Specific [place] 1.025, Urine Protein Negative, Urine Glucose (UA) Negative, Urine Ketones Negative, Urine Blood Negative, Urine Nitrate Negative, Urine Bilirubin Negative, Urine Urobilinogen 0.2, Ur Leukocyte Esterase Negative, Urine RBC Occasional, Urine WBC Occasional, Ur Squamous Epith Cells Occasional, Calcium Oxalate Crystal Trace, Urine Bacteria None 01/15/24 05:14 01/15/24 05:14 Orders (Tests/Meds): ED MEDICATIONS Generic Name Dose Route Start Last Admin Trade Name Freq PRN Reason Stop Dose Admin Sodium Chloride 10 ml 01/15/24 05:51 01/15/24 05:51 Sodium Chloride 0.9% 10ml Syr (Rad Only) IV 02/14/24 05:50 10 ml NEEDED PRN Administration Maintain IV Site Discontinued Medications Generic Name Dose Route Start Last Admin Trade Name Freq PRN Reason Stop Dose Admin Iopamidol 75 ml 01/15/24 05:51 01/15/24 05:51 Iopamidol-370 (76%);100ml Bottle IV 01/15/24 05:52 75 ml ONCE ONE Administration ORDERS Category Date Time Status CT abdomen pelvis w con Stat Cat Scan 01/15/24 05:00 Completed CBC w/Auto Diff [Complete Blood Count Auto Diff] Stat Lab 01/15/24 05:14 Completed CMP [Comprehensive Metabolic Panel] Stat Lab 01/15/24 05:14 Completed Lipase Stat Lab 01/15/24 05:14 Completed UA [Urinalysis and Microscopic] Stat Lab 01/15/24 06:25 Completed Medical Decision Narrative: 78-year-old male with history of myelodysplastic syndrome, bilateral spermatoceles presents with now resolved acute abdominal pain, subacute scrotal swelling. History was obtained interactive discussion with patient, family, chart review. On arrival, patient is [afebrile, hemodynamically stable, satting appropriately, alert, oriented x4, GCS 15], moving all extremities spontaneously. Full physical exam performed and significant for benign abdominal exam without tenderness, fullness noted proximal to the testicles. Differential includes but is not limited to inguinal hernia, spermatocele, hydrocele, UTI, testicular torsion, bowel obstruction, diverticulitis, intra- abdominal pathology. We considered calling an ultrasound emergently for testicular ultrasound, however, on arrival patient has had complete symptomatic resolution. Will proceed with labs and CT imaging. On re-evaluation, patient [remains afebrile, HD stable.] Reports that he continues to feel well, continues to deny any acute scrotal pain Laboratory workup independently interpreted by me and significant for leukocytopenia, anemia, stable from prior. Renal function at baseline, urine without evidence of infection.. At this time care handed off to oncoming physician pending CT imaging. <Matt Robbins MD - Last Filed: 01/15/24 08:54> Vital Signs: 01/15/24 04:56 01/15/24 05:00 01/15/24 05:06 Temperature 97.8 F Temperature Source Oral Pulse Rate 99 H 89 Pulse Rate [Left Radial] 102 H Respiratory Rate 20 18 20 Blood Pressure 150/71 H 165/83 H Blood Pressure [Right Arm] 150/71 H Blood Pressure Mean 102 110 Blood Pressure Mean [Right Arm] 97 Blood Pressure Source [Right Arm] Automatic Cuff Blood Pressure Position [Right Arm] Sitting 02 Sat by Pulse Oximetry 98 98 97 Oxygen Delivery Method Room Air Room Air Room Air 01/15/24 05:30 01/15/24 06:00 01/15/24 06:30 Temperature Temperature Source Pulse Rate 82 82 84 Pulse Rate [Left Radial] Respiratory Rate 16 20 18 Blood Pressure 157/75 H 155/78 H 163/84 H Blood Pressure [Right Arm] Blood Pressure Mean 118 115 109 Blood Pressure Mean [Right Arm] Blood Pressure Source [Right Arm] Blood Pressure Position [Right Arm] 02 Sat by Pulse Oximetry 97 97 98 Oxygen Delivery Method Room Air Room Air Room Air 01/15/24 07:30 01/15/24 08:00 Temperature Temperature Source Pulse Rate 72 78 Pulse Rate [Left Radial] Respiratory Rate 20 Blood Pressure 172/91 H 144/76 H Blood Pressure [Right Arm] Blood Pressure Mean 118 98 Blood Pressure Mean [Right Arm] Blood Pressure Source [Right Arm] Blood Pressure Position [Right Arm] 02 Sat by Pulse Oximetry 99 98 Oxygen Delivery Method Room Air Lab Data Lab Results 01/15/24 05:14: WBC 2.3 L, RBC 2.93 L, Hgb 10.5 L, Hct 33.1 L, MCV 112.7 H, MCH 35.7 H, MCHC 31.6 L, RDW 15.9, Plt Count 168, MPV 9.1, Neut % (Auto) 41.3, Lymph % (Auto) 51.6 H, Barron % (Auto) 4.4, Eos % (Auto) 2.6, Baso % (Auto) 2.6 H, Neut # (Auto) 1.0 L, Lymph # (Auto) 1.2, Barron # (Auto) 0.1, Eos # (Auto) 0.1, Baso # (Auto) 0.1, Total Counted 100, Neutrophils % (Manual) 59, Lymphocytes % (Manual) 34, Monocytes % (Manual) 2, Eosinophils % (Manual) 2, Metamyelocytes % 3.0 H, Platelet Estimate Normal, RBC Morphology Normal, Sodium 139, Potassium 3.8, C hloride 108 H, Carbon Dioxide 27, Anion Gap 7.8, BUN 30 H, Creatinine 1.30 H, Estimated Creat Clear 68, Estimated GFR 53 L, Est GFR ( Amer) 65, Glucose 126 H, Calcium 9.5, Total Bilirubin 0.4, AST 31, ALT 21, Alkaline Phosphatase 101, Total Protein 6.7, Albumin 3.7, Globulin 3.0, Albumin/Globulin Ratio 1.2, Lipase 34 01/15/24 06:25: Urine Color Yellow, Urine Appearance Clear, Urine pH 5.5, Ur Specific [place] 1.025, Urine Protein Negative, Urine Glucose (UA) Negative, Urine Ketones Negative, Urine Blood Negative, Urine Nitrate Negative, Urine Bilirubin Negative, Urine Urobilinogen 0.2, Ur Leukocyte Esterase Negative, Urine RBC Occasional, Urine WBC Occasional, Ur Squamous Epith Cells Occasional, Calcium Oxalate Crystal Trace, Urine Bacteria None Orders (Tests/Meds): ED MEDICATIONS Generic Name Dose Route Start Last Admin Trade Name Freq PRN Reason Stop Dose Admin Sodium Chloride 10 ml 01/15/24 05:51 01/15/24 05:51 Sodium Chloride 0.9% 10ml Syr (Rad Only) IV 02/14/24 05:50 10 ml NEEDED PRN Administration Maintain IV Site Discontinued Medications Generic Name Dose Route Start Last Admin Trade Name Freq PRN Reason Stop Dose Admin Iopamidol 75 ml 01/15/24 05:51 01/15/24 05:51 Iopamidol-370 (76%);100ml Bottle IV 01/15/24 05:52 75 ml ONCE ONE Administration ORDERS Category Date Time Status CT abdomen pelvis w con Stat Cat Scan 01/15/24 05:00 Completed CBC w/Auto Diff [Complete Blood Count Auto Diff] Stat Lab 01/15/24 05:14 Completed CMP [Comprehensive Metabolic Panel] Stat Lab 01/15/24 05:14 Completed Lipase Stat Lab 01/15/24 05:14 Completed UA [Urinalysis and Microscopic] Stat Lab 01/15/24 06:25 Completed Medical Decision Narrative: 78-year-old male with history of myelodysplastic syndrome, bilateral spermatoceles presents with now resolved acute abdominal pain, subacute scrotal swelling. History was obtained interactive discussion with patient, family, chart review. On arrival, patient is [afebrile, hemodynamically stable, satting appropriately, alert, oriented x4, GCS 15], moving all extremities spontaneously. Full physical exam performed and significant for benign abdominal exam without tenderness, fullness noted proximal to the testicles. Differential includes but is not limited to inguinal hernia, spermatocele, hydrocele, UTI, testicular torsion, bowel obstruction, diverticulitis, intra- abdominal pathology. We considered calling an ultrasound emergently for testicular ultrasound, however, on arrival patient has had complete symptomatic resolution. Will proceed with labs and CT imaging. On re-evaluation, patient [remains afebrile, HD stable.] Reports that he continues to feel well, continues to deny any acute scrotal pain Laboratory workup independently interpreted by me and significant for leukocytopenia, anemia, stable from prior. Renal function at baseline, urine without evidence of infection.. At this time care handed off to oncoming physician pending CT imaging. Matt Robbins: Upon assumption of care patient was hemodynamically stable. Workup reviewed by me, hematologic labs are nonactionable, persistent leukopenia, stable CKD, no critical electrolyte abnormalities. Urinalysis interpreted by me and not consistent with infection. CT imaging remarkable for mild thickening and irregularity with fat stranding along the pylorus that may represent peptic ulcer disease, diverticulosis without evidence of diverticulitis, punctate nonobstructing lower renal pole calculus, given that it is in the renal pelvis there is no reason for that to be causing his pain, chronic bilateral scrotal hydroceles slightly increased from prior. Small hiatal hernia. Upon repeat evaluation patient was well-appearing, no complaints of ongoing symptoms. Patient states he does feel as if he has acid reflux, given this trial with omeprazole be conducted he will follow-up with Dr. Brunner for continued evaluation. Procedures <Dane Davidson MD - Last Filed: 01/15/24 07:07> Risk/Benefits of Procedure(s) Were Explained: Yes Critical Care <Dane Davidson MD - Last Filed: 01/15/24 07:07> Critical Care Time Critical Care Time: No
--- NOTE | 2024-01-15 05:00 | CT_ITS ---
PROCEDURE INFORMATION: Exam: CT Abdomen And Pelvis With Contrast Exam date and time: 01/15/2024 5:45 AM Age: 78 years old Clinical indication: Abdominal pain; Additional info: Abd and scrotal pain TECHNIQUE: Imaging protocol: Computed tomography of the abdomen and pelvis with contrast. Radiation optimization: All CT scans at this facility use at least one of these dose optimization techniques: automated exposure control; mA and/or kV adjustment per patient size (includes targeted exams where dose is matched to clinical indication); or iterative reconstruction. Contrast material: ISOVUE; Contrast volume: 75 ml; Contrast route: IV; COMPARISON: CT ABDOMEN PELVIS WO CON 10/15/2020 12:30 PM FINDINGS: Diaphragm: Small hiatal hernia. Liver: No acute abnormality. No mass. Gallbladder and bile ducts: Relatively small contracted gallbladder. No biliary ductal dilatation. Pancreas: No acute abnormality. No ductal dilation. Spleen: No acute abnormality. Adrenal glands: No significant or acute abnormality. Kidneys and ureters: Tiny punctate non-obstructing right renal lower pole calculus. No hydronephrosis or hydroureter. Stomach and bowel: Mild thickening, irregularity and subtle fat stranding along the pylorus and proximal duodenum. No significant large or small bowel distention. Colonic diverticulosis without CT evidence of diverticulitis. Appendix: Grossly normal nondilated visualized appendix. Intraperitoneal space: No significant fluid collection. No free air. Vasculature: Atherosclerotic vascular calcification. No aortic aneurysm. Lymph nodes: No enlarged lymph nodes. Urinary bladder: Nondistended decompressed urinary bladder. No bladder calculi. Reproductive: Chronic bilateral scrotal hydroceles, mildly increased compared to prior study. Bones/joints: Multilevel spondylosis and degenerative bony changes. Soft tissues: No significant soft tissue abnormalities. IMPRESSION: 1. Mild thickening, irregularity and subtle fat stranding along the pylorus and proximal duodenum raising the possibility of peptic ulcer disease. Consider fluoroscopic upper GI examination versus endoscopy for further evaluation. 2. Colonic diverticulosis without CT evidence of diverticulitis. 3. Tiny punctate non-obstructing right renal lower pole calculus. 4. Chronic bilateral scrotal hydroceles, mildly increased compared to prior study. 5. Small hiatal hernia.
[2024-01-15 05:27] LABS: Chloride 108 mmol/L (98-107); Potassium 3.8 mmoL/L (3.5-5.1); Sodium 139 mmol/L (136-145)
[2024-01-15 05:29] LABS: Blood Urea Nitrogen 30 mg/dl (9-20); Creatinine Clearance Estimated 68 mL/min (50-200); Estimated Glomerular Filt Rate 53 ml/min (>60); GFR (African American) 65 ML/MIN (>60); Lipase 34 U/L (23-300)
[2024-01-15 05:30] LABS: Alanine Aminotransferase 21 U/L (12-78); Albumin Level 3.7 g/dl (3.5-5.0); Albumin/Globulin Ratio 1.2 (1.1-1.8); Alkaline Phosphatase 101 U/L (38-126); Anion Gap 7.8 mEq/L (5-15); Aspartate Amino Transferase 31 U/L (17-59); Bilirubin,Total 0.4 mg/dl (0.2-1.3); Calcium 9.5 mg/dl (8.4-10.2); Carbon Dioxide 27 mmol/L (22.0-30.0); Glucose 126 mg/dl (74-100); Total Protein,Serum 6.7 g/dl (6.3-8.2)
[2024-01-15 05:31] LABS: Basophils # 0.1 K/mm3 (0-0.2); Basophils % 2.6 % (0.1-2.0); Eosinophils # 0.1 K/mm3 (0.0-0.4); Eosinophils % 2.6 % (0.1-12.0); Hematocrit 33.1 % (42.0-52.0); Hemoglobin 10.5 g/dL (14.1-18.0); Lymphocytes # 1.2 K/mm3 (0.7-4.5); Lymphocytes % 51.6 % (10-50); Mean Corpuscular HGB Conc 31.6 g/dL (31.8-35.4); Mean Corpuscular Hemoglobin 35.7 pg (27.0-31.2); Mean Corpuscular Volume 112.7 fl (80-94); Mean Platelet Volume 9.1 fl (7.4-10.4); Monocytes # 0.1 K/mm3 (0.1-1.0); Monocytes % 4.4 % (1.7-9.3); Neutrophils % 41.3 % (37.0-80.0); Platelet Count 168 K/mm3 (142-424); Red Blood Count 2.93 M/mm3 (4.60-6.20); Red Cell Distribution Width 15.9 % (11.5-17.5); White Blood Count 2.3 K/mm3 (4.8-10.8)
[2024-01-15 05:35] LABS: MANUAL DIFFERENTIAL MANUAL DIFFERENTIAL (MANUAL DIFF)
[2024-01-15] MEDS: IOPAMIDOL-370 (76%);100ML BOTTLE 75 ML IV (05:51)
[2024-01-15] MEDS: SODIUM CHLORIDE 0.9% 10ML SYR (RAD ONLY) 10 ML IV (05:51)
[2024-01-15 06:03] LABS: Eosinophils % 2 % (0-3); Lymphocytes % 34 % (10-50); Monocytes % 2 % (2-9); Neutrophils % 59 % (42-76); Platelet Estimate Normal; RBC Morphology Normal; Total Cells Counted 100
[2024-01-15 06:28] LABS: Microscopic, Urine URINE MICROSCOPIC (MICROSCOPIC)
[2024-01-15 06:30] LABS: Appearance,Urine CLEAR (Clear); Blood, Urine Negative (Negative); Color,Urine YELLOW (Yellow); Glucose,Urine (UA) Negative (Negative); Ketones,Urine Negative (Negative); Leukocyte Esterase,Urine Negative (Negative); Nitrate,Urine Negative (Negative); PH,Urine 5.5 (5.0-8.5); Protein,Urine Negative (Negative); Specific Gravity, Urine 1.025 (1.005-1.030); Urobilinogen,Urine 0.2 EU/dl (0.2)
[2024-01-15 06:40] LABS: Bilirubin,Urine Negative (Negative)
--- NOTE | 2024-01-15 07:29 | PC.NURSE ---
checked with radiology theys advised the CT had been assigned but not read yet
[2024-01-15 07:47] LABS: Calcium Oxalate Crystals,Urine Trace /lpf; RBC,Urine Occasional #/hpf (0-3); WBC,Urine Occasional #/hpf (0-3)
[2024-01-15 07:48] LABS: Squamous Epithelial Cell,Urine Occasional #/hpf (0-5)
--- NOTE | 2024-01-15 08:20 | PC.NURSE ---
updated pt and family, waiting on the scan to be read
--- NOTE | 2024-01-15 08:25 | PC.NURSE ---
rounded on patient no needs voiced at this time.
== END 2024-01-15 09:03 | disposition home or self-care (01) ==
PROVIDERS: Emergency Medicine; Emergency Provider Emergency Medicine; PCP Internal Medicine Adolescent Medicine
DX: R10.9 Unspecified abdominal pain (principal); K21.9 Gastro-esophageal reflux disease without esophagitis; D46.9 Myelodysplastic syndrome, unspecified; I10 Essential (primary) hypertension; I48.0 Paroxysmal atrial fibrillation; E78.5 Hyperlipidemia, unspecified; N43.3 Hydrocele, unspecified
CPT/HCPCS: 74177; 80053; 81001; 83690; 85007; 85025; 99284; Q9967

== ENCOUNTER 2024-01-19 08:13 | Outpatient (CLI) | payer MEDICARE, MEDICAID, SELFPAY ==
[2024-01-19 08:23] VITALS: BMI 30.7
[2024-01-19 08:37] LABS: Basophils # 0.1 K/mm3 (0-0.2); Basophils % 1.7 % (0.1-2.0); Eosinophils # 0.1 K/mm3 (0.0-0.4); Eosinophils % 2.8 % (0.1-12.0); Hematocrit 30.4 % (42.0-52.0); Hemoglobin 9.8 g/dL (14.1-18.0); Lymphocytes # 1.1 K/mm3 (0.7-4.5); Lymphocytes % 38.6 % (10-50); Mean Corpuscular HGB Conc 32.1 g/dL (31.8-35.4); Mean Corpuscular Hemoglobin 35.9 pg (27.0-31.2); Mean Corpuscular Volume 111.7 fl (80-94); Monocytes # 0.2 K/mm3 (0.1-1.0); Monocytes % 6.4 % (1.7-9.3); Neutrophils # 1.5 K/mm3 (1.8-7.8); Neutrophils % 50.5 % (37.0-80.0); Platelet Count 144 K/mm3 (142-424); Red Blood Count 2.73 M/mm3 (4.60-6.20); Red Cell Distribution Width 15.2 % (11.5-17.5); White Blood Count 2.9 K/mm3 (4.8-10.8)
[2024-01-19 08:40] LABS: Chloride 109 mmol/L (98-107); Potassium 3.7 mmoL/L (3.5-5.1); Sodium 139 mmol/L (136-145)
[2024-01-19 08:42] LABS: Blood Urea Nitrogen 24 mg/dl (9-20); Creatinine Clearance Estimated 74 mL/min (50-200); Estimated Glomerular Filt Rate 59 ml/min (>60); GFR (African American) 71 ML/MIN (>60)
[2024-01-19 08:43] LABS: Alanine Aminotransferase 18 U/L (12-78); Albumin Level 3.4 g/dl (3.5-5.0); Albumin/Globulin Ratio 1.1 (1.1-1.8); Alkaline Phosphatase 86 U/L (38-126); Anion Gap 6.7 mEq/L (5-15); Aspartate Amino Transferase 28 U/L (17-59); Bilirubin,Total 0.4 mg/dl (0.2-1.3); Calcium 9.1 mg/dl (8.4-10.2); Carbon Dioxide 27 mmol/L (22.0-30.0); Glucose 111 mg/dl (74-100); Total Protein,Serum 6.4 g/dl (6.3-8.2)
== END 2024-01-19 09:05 | disposition home or self-care (01) ==
LOC: INF 08:14
PROVIDERS: PCP Internal Medicine Adolescent Medicine; Visit Provider Internal Medicine Medical Oncology
DX: D46.9 Myelodysplastic syndrome, unspecified (principal); D46.21 Refractory anemia with excess of blasts 1
CPT/HCPCS: 36415; 80053; 85025

== ENCOUNTER 2024-01-22 10:59 | Outpatient (CLI) | payer MEDICARE, MEDICAID, SELFPAY ==
--- NOTE | 2024-01-22 11:04 | CT_ITS ---
APPROVED REPORT Research Laboratory Specialist: CLINICAL INDICATION Chest Pain TECHNIQUE Image Acquisition: A 128 slice MDCT scanner ([place] View) was used for data acquisition. A noncontrast coronary calcium scan was performed. A CT attenuation threshold of 130 Hounsfield units (HU) was used for the detection of calcium in contiguous voxels of 1 sq mm in area to be counted as individual lesions. Bolus tracking in the ascending aorta with a threshold of 180 HU was performed. Immediately afterwards, ECG synchronized cardiac CT was then performed from the cardiac base to apex using retrospective gating with ECG tube current modulation. A total of 85 mL of Isovue 370 mg/mL contrast medium was administered at 5 mL/sec followed by a saline flush using a biphasic injection protocol. A tube voltage of 120 KVp was used. The patient received the following medications prior to the cardiac CT. 75 mg of oral metoprolol 15 mg of oral ivabradine 0.8 mg of sublingual nitroglycerin The average heart rate at the time of acquisition was 69 bpm and regular. Image Reconstruction Transaxial images were reconstructed at 0.67 mm slide thickness. Data was reviewed interactively on an advanced workstation capable of 2 and 3-dimensional displays in all conventional reconstruction formats, including multiplanar reformations, maximum intensity projections, curved multiplanar reformations, and volume rendered reconstructions. When applicable, selected routine images describing the relevant coronary anatomy and pathology were saved and sent to PACS. Complications None Technical Quality Overall image quality was suboptimal due to elevated HR and significant motion. Coronary artery opacification was fair. Total DLP (Dose-Length Product) is 2738.4 mGy-cm. The reported value represents the total of one or more individual components during the CT acquisition of this date and at this time, and as such, the same value may appear in more than one CT report depending on the interpreting/reporting physicians. COMPARISON None FINDINGS CT Coronary Calcium Scoring LMA (Left Main Artery) = 371 LAD (Left Anterior Descending) = 205 LCX (Left Coronary Circumflex) = 320 RCA (Right Coronary Artery) = 0 Total Calcium Score = 896 using the AJ-130 method. The observed calcium score of 896 is at 71st percentile for subjects of the same age, sex, and race/ethnicity. The interpretation of the calcium heart score is based on the following continuum*: 0 = no calcified plaque detected (risk of coronary artery disease is very low ??? less than 5%) 1-10 = calcium detected in extremely minimal levels (risk of coronary diseases is still low ??? less than 10%) 11-100 = mild levels of plaque detected with certainty (mild or minimal narrowing of heart arteries is likely) 101-400 = definite,at least moderate levels of plaque detected (relatively high risk of a heart attack within 3-5 years) >401-999 = extensive levels of plaque detected (high risk of heart attack, high levels of vascular disease are present, high likelihood of at least one significant coronary narrowing) *The calcium heart score quantifies the burden of coronary calcification/plaque in the coronary arteries. The calcium heart score is not able to evaluate the presence or burden of non-calcified (i.e. soft) plaque. There is also calcification in ascending and descending thoracic aorta. Coronary CT Angiography The coronary arterial system is left dominant. Quantitative Stenosis Grading: Left Main (LM): The left main originates normally from the left sinus of Valsalva. The LM bifurcates into the left anterior descending artery and left circumflex artery. There is calcification in the ostial and proximal LM with approximately 50% luminal stenosis. Left Anterior Descending (LAD) and Diagonal Branches: The LAD gives off 2 diagonal branch(es). There is mixed calcified/noncalcified plaque in the proximal LAD, with up to 50-70% luminal stenosis. There is no evidence of LAD-myocardial bridge. Left Circumflex (LCX) and Obtuse Marginals (OM): The LCX gives off 2 Obtuse Marginal (OM) branch(es). There are multiple mixed calcified/noncalcified plaque noted in the proximal and mid LCx with up to 50-70% luminal stenosis. Right Coronary Artery (RCA): The RCA originates normally from the right sinus of Valsalva. The RCA small caliber vessel. Grossly, the RCA and its branches are patent with no evidence of atherosclerosis, but opacification is limited due to small caliber vessel.. Non-Coronary Cardiac Findings: Analysis of the left ventricular (LV) structure and function was performed after 3-D reconstruction of the LV from axial images, with user-corrected automatic contouring for assessment of LV volumes and user-defined reconstruction from oblique planes for measurement of 3-D cardiac structure and function. -The left ventricle systolic function is mildly reduced (LVEF 47%). There is moderate hypokinesis of the septal and anterior septal LV murphy. -There is no left atrial appendage filling defect. Two right pulmonary veins and two left pulmonary veins drain normally into the left atrium. -No pericardial thickening or calcification. -Central and branch pulmonary arteries in the [id number] are unremarkable. -Thoracic aorta within the visualized thoracic aortic-branches in the [id number] is unremarkable. Extracardiac Structures No significant extra-cardiac findings. Note, however, that this study is focused on the cardiac findings. IMPRESSION -Technically difficult study due to significant motion in the setting of elevated HR. -Presence of coronary calcification with an Agatston score = 896 using the AJ-130 method. -The observed calcium score of 896 is at 71st percentile for subjects of the same age, sex, and race/ethnicity. -Evidence of atherosclerosis with possible flow-limiting plaque in the ostial LM, proximal LAD, and dominant LCX. -CAD-RADS 4B. Management recommendations per ACC/AHA guidelines*, as clinically appropriate. -The left ventricle systolic function is mildly reduced (LVEF 47%). There is moderate hypokinesis of the septal and anterior septal LV murphy. Correlation with new or recent TTE is recommended. *Recommendations: CAD RADS 0: Reassurance. Consider non-atherosclerotic causes of chest pain. CAD RADS 1: Consider non-atherosclerotic causes of chest pain. Consider preventive therapy and risk factor modification. CAD RADS 2: Consider non-atherosclerotic causes of chest pain. Consider preventive therapy and risk factor modification, particularly for patients with nonobstructive plaque in multiple segments. CAD RADS 3: Consider further functional testing. Consider symptom-guided anti-ischemic and preventive pharmacotherapy as well as risk factor modification per published guideline statements. CAD RADS 4A: Consider further functional testing or invasive coronary angiography with revascularization per published guideline statements. Consider symptom-guided anti-ischemic and preventive pharmacotherapy as well as risk factor modification per published guideline statements. CAD RADS 4B: Invasive coronary angiography recommended with revascularization per published guideline statements. Consider symptom-guided anti-ischemic and preventive pharmacotherapy as well as risk factor modification per published guideline statements. CAD RADS 5: Consider invasive angiography and/or viability assessment with revascularization per published guideline statements. Consider symptom-guided anti-ischemic and preventive pharmacotherapy as well as risk factor modification per published guideline statements. CRITICAL RESULT None COMMUNICATION Per this written report The coronary and cardiac findings of this CCTA were reviewed, reported, and signed by Abhi Grider MD (Loss Prevention Detective) Conclusion Electronically signed by : Nichelle Grider MD 01/27/2024 16:37:18
[2024-01-22 11:17] VITALS: BMI 30.2
[2024-01-22] MEDS: METOPROLOL TARTRATE 25MG TABLET 25 MG (11:28)
[2024-01-22] MEDS: METOPROLOL TARTRATE 50MG TABLET PO (11:28)
[2024-01-22] MEDS: IVABRADINE HCL 7.5MG TABLET PO (11:28)
[2024-01-22 12:35] VITALS: BP 127/66; PULSE 66; RESP 18; O2SAT 100
[2024-01-22 12:40] VITALS: BP 134/71; PULSE 62; RESP 18; O2SAT 99
[2024-01-22 12:45] VITALS: BP 117/67; PULSE 59; RESP 18; O2SAT 98
[2024-01-22 12:50] VITALS: BP 102/54; PULSE 62; RESP 18; O2SAT 99
[2024-01-22 12:52] VITALS: BP 104/60; PULSE 60; RESP 18; O2SAT 97
[2024-01-22] MEDS: IOPAMIDOL-370 (76%);100ML BOTTLE 85 ML IV (12:53)
[2024-01-22] MEDS: 0.9 % SODIUM CHLORIDE 50 ML VIAL IV (12:53)
[2024-01-22] MEDS: SODIUM CHLORIDE 0.9% 10ML SYR (RAD ONLY) 10 ML IV (12:53)
== END 2024-01-22 12:52 | disposition home or self-care (01) ==
PROVIDERS: PCP Internal Medicine Adolescent Medicine; Visit Provider Physician Assistant
DX: I48.91 Unspecified atrial fibrillation (principal); Z87.891 Personal history of nicotine dependence; R94.31 Abnormal electrocardiogram [ECG] [EKG]; R06.09 Other forms of dyspnea; D46.9 Myelodysplastic syndrome, unspecified; Z01.810 Encounter for preprocedural cardiovascular examination
CPT/HCPCS: 75571; 75574; 93306; Q9967

== ENCOUNTER 2024-01-26 07:51 | Outpatient (CLI) | payer MEDICARE, MEDICAID, SELFPAY ==
[2024-01-26] MEDS: PROCHLORPERAZINE 10MG TABLET 10 MG PO (08:15)
[2024-01-26] MEDS: SODIUM CHLORIDE 0.9% IV (08:48)
[2024-01-26] MEDS: SODIUM CHLORIDE 0.9% 50ML BAG 50 ML IV (08:48)
[2024-01-26] MEDS: DECITABINE IV (08:48)
[2024-01-26 08:50] VITALS: BP 125/88; PULSE 73; RESP 18; O2SAT 97
[2024-01-26 09:05] VITALS: BP 136/48; PULSE 86; RESP 18
[2024-01-26 09:20] VITALS: BP 166/81; PULSE 72; RESP 18
[2024-01-26 09:35] VITALS: BP 170/85; PULSE 70; RESP 18
[2024-01-26 10:05] VITALS: BP 163/84; PULSE 73; RESP 18; O2SAT 97
== END 2024-01-26 10:05 | disposition home or self-care (01) ==
LOC: INF 07:52
PROVIDERS: PCP Internal Medicine Adolescent Medicine; Visit Provider Internal Medicine Medical Oncology
DX: D46.21 Refractory anemia with excess of blasts 1 (principal); Z79.899 Other long term (current) drug therapy
CPT/HCPCS: 96413; J0894

== ENCOUNTER 2024-01-27 07:54 | Outpatient (CLI) | payer MEDICARE, MEDICAID, SELFPAY ==
[2024-01-27] MEDS: PROCHLORPERAZINE 10MG TABLET 10 MG PO (08:15)
[2024-01-27] MEDS: DECITABINE IV (08:44)
[2024-01-27] MEDS: SODIUM CHLORIDE 0.9% IV (08:44)
[2024-01-27 08:50] VITALS: BP 146/72; PULSE 76; RESP 18; TEMP 36.8; O2SAT 96
[2024-01-27] MEDS: SODIUM CHLORIDE 0.9% 50ML BAG 50 ML IV (08:50)
[2024-01-27] MEDS: SODIUM CHLORIDE 0.9% 10ML FLUSH SYRINGE 10 ML IV (08:50)
[2024-01-27 09:05] VITALS: BP 132/68; PULSE 72
[2024-01-27 09:20] VITALS: BP 137/71; PULSE 79
[2024-01-27 09:35] VITALS: BP 141/72; PULSE 71
[2024-01-27 09:50] VITALS: BP 143/71; PULSE 76
== END 2024-01-27 23:59 | disposition home or self-care (01) ==
LOC: INF 07:55
PROVIDERS: PCP Internal Medicine Adolescent Medicine; Visit Provider Internal Medicine Medical Oncology
DX: D46.21 Refractory anemia with excess of blasts 1 (principal)
CPT/HCPCS: 96413; J0894

== ENCOUNTER 2024-01-28 08:13 | Outpatient (CLI) | payer MEDICARE, MEDICAID, SELFPAY ==
[2024-01-28 08:21] VITALS: BP 158/78; PULSE 78; RESP 18; TEMP 36.6; O2SAT 97
[2024-01-28] MEDS: SODIUM CHLORIDE 0.9% 10ML FLUSH SYRINGE 10 ML IV (08:21)
[2024-01-28] MEDS: SODIUM CHLORIDE 0.9% 50ML BAG 50 ML IV (08:21)
[2024-01-28] MEDS: PROCHLORPERAZINE 10MG TABLET 10 MG PO (08:21)
[2024-01-28 08:50] VITALS: BP 147/81; PULSE 83; RESP 18; O2SAT 97
[2024-01-28] MEDS: SODIUM CHLORIDE 0.9% IV (08:50)
[2024-01-28] MEDS: DECITABINE IV (08:50)
[2024-01-28 09:55] VITALS: BP 151/79; PULSE 81; RESP 18; O2SAT 97
== END 2024-01-28 09:55 | disposition home or self-care (01) ==
LOC: INF 08:14
PROVIDERS: PCP Internal Medicine Adolescent Medicine; Visit Provider Internal Medicine Medical Oncology
DX: D46.9 Myelodysplastic syndrome, unspecified (principal); D46.21 Refractory anemia with excess of blasts 1
CPT/HCPCS: 96413; J0894

== ENCOUNTER 2024-01-29 07:54 | Outpatient (CLI) | payer MEDICARE, MEDICAID, SELFPAY ==
[2024-01-29] MEDS: PROCHLORPERAZINE 10MG TABLET 10 MG PO (08:05)
[2024-01-29] MEDS: SODIUM CHLORIDE 0.9% IV (08:48)
[2024-01-29] MEDS: SODIUM CHLORIDE 0.9% 50ML BAG 50 ML IV (08:48)
[2024-01-29] MEDS: DECITABINE IV (08:48)
[2024-01-29 08:53] VITALS: BP 147/81; PULSE 114; RESP 16; O2SAT 98
[2024-01-29 10:05] VITALS: BP 140/59; PULSE 90; O2SAT 98
== END 2024-01-29 10:05 | disposition home or self-care (01) ==
LOC: INF 07:56
PROVIDERS: PCP Internal Medicine Adolescent Medicine; Visit Provider Internal Medicine Medical Oncology
DX: D46.9 Myelodysplastic syndrome, unspecified (principal); D46.21 Refractory anemia with excess of blasts 1
CPT/HCPCS: 96413; J0894

== ENCOUNTER 2024-01-30 08:02 | Outpatient (CLI) | payer MEDICARE, MEDICAID, SELFPAY ==
[2024-01-30] MEDS: PROCHLORPERAZINE 10MG TABLET 10 MG PO (08:10)
[2024-01-30] MEDS: DECITABINE IV (08:39)
[2024-01-30] MEDS: SODIUM CHLORIDE 0.9% IV (08:39)
[2024-01-30 08:40] VITALS: BP 154/76; PULSE 79; RESP 18; TEMP 36.8; O2SAT 97
[2024-01-30] MEDS: SODIUM CHLORIDE 0.9% 10ML FLUSH SYRINGE 10 ML IV (08:40)
[2024-01-30] MEDS: SODIUM CHLORIDE 0.9% 50ML BAG 50 ML IV (08:40)
[2024-01-30 08:55] VITALS: BP 142/64; PULSE 91
[2024-01-30 09:10] VITALS: BP 138/71; PULSE 89
[2024-01-30 09:25] VITALS: BP 144/73; PULSE 93
[2024-01-30 09:45] VITALS: BP 150/79; PULSE 90
== END 2024-01-30 09:52 | disposition home or self-care (01) ==
LOC: INF 08:02
PROVIDERS: PCP Internal Medicine Adolescent Medicine; Visit Provider Internal Medicine Medical Oncology
DX: D46.9 Myelodysplastic syndrome, unspecified (principal); D46.21 Refractory anemia with excess of blasts 1
CPT/HCPCS: 96413; J0894

== ENCOUNTER 2024-02-11 08:17 | Day surgery (SDC) | payer MEDICARE, MEDICAID, SELFPAY ==
[2024-02-11 08:37] VITALS: BP 209/114; PULSE 92; PULSE 93; RESP 17; TEMP 36.3; O2SAT 96
[2024-02-11 11:37] VITALS: BMI 30.7
[2024-02-11 11:44] LABS: Basophils % 0.7 % (0.1-2.0); Eosinophils # 0.2 K/mm3 (0.0-0.4); Hematocrit 34.5 % (42.0-52.0); Hemoglobin 11.1 g/dL (14.1-18.0); Lymphocytes # 1.1 K/mm3 (0.7-4.5); Lymphocytes % 51.1 % (10-50); Mean Corpuscular HGB Conc 32.2 g/dL (31.8-35.4); Mean Corpuscular Hemoglobin 35.6 pg (27.0-31.2); Mean Corpuscular Volume 110.5 fl (80-94); Mean Platelet Volume 10.3 fl (7.4-10.4); Monocytes # 0.1 K/mm3 (0.1-1.0); Monocytes % 4.5 % (1.7-9.3); Neutrophils # 0.8 K/mm3 (1.8-7.8); Neutrophils % 35.7 % (37.0-80.0); Red Blood Count 3.12 M/mm3 (4.60-6.20); Red Cell Distribution Width 17.5 % (11.5-17.5); White Blood Count 2.2 K/mm3 (4.8-10.8)
[2024-02-11 11:45] LABS: Chloride 109 mmol/L (98-107); Potassium 4.2 mmoL/L (3.5-5.1); Sodium 138 mmol/L (136-145)
[2024-02-11 11:47] LABS: Platelet Count 33 K/mm3 (142-424)
[2024-02-11 11:48] LABS: Anion Gap 6.2 mEq/L (5-15); Blood Urea Nitrogen 22 mg/dl (9-20); Calcium 9.2 mg/dl (8.4-10.2); Carbon Dioxide 27 mmol/L (22.0-30.0); Creatinine Clearance Estimated 81 mL/min (50-200); Estimated Glomerular Filt Rate 65 ml/min (>60); GFR (African American) 78 ML/MIN (>60); Glucose 107 mg/dl (74-100); MANUAL DIFFERENTIAL MANUAL DIFFERENTIAL (MANUAL DIFF)
[2024-02-11 11:57] LABS: Anisocytosis 1+; Eosinophils % 5 % (0-3); Lymphocytes % 55 % (10-50); Macrocytosis 1+; Monocytes % 1 % (2-9); Neutrophils % 39 % (42-76); Ovalocytes 1+; Platelet Estimate Marked Decrease; Total Cells Counted 100
--- NOTE | 2024-02-11 12:44 | SUR.PHASEII ---
Case cancelled due to abnormal labs.
[2024-02-13 12:16] LABS: Peripheral Smear Review Scanned Result
== END 2024-02-11 12:45 | disposition home or self-care (01) ==
PROVIDERS: PCP Internal Medicine Adolescent Medicine; Visit Provider Internal Medicine
DX: I48.91 Unspecified atrial fibrillation (principal); R88.8 Abnormal findings in other body fluids and substances; R71.8 Other abnormality of red blood cells; D46.9 Myelodysplastic syndrome, unspecified; Z53.09 Procedure and treatment not carried out because of other contraindication
CPT/HCPCS: 80048; 85007; 85025

== ENCOUNTER 2024-02-13 10:32 | Outpatient (CLI) | payer MEDICARE, MEDICAID, SELFPAY ==
[2024-02-13 10:53] VITALS: BMI 30.7
[2024-02-13 11:20] LABS: Eosinophils # 0.1 K/mm3 (0.0-0.4); Eosinophils % 7.9 % (0.1-12.0); Hematocrit 31.5 % (42.0-52.0); Hemoglobin 10.1 g/dL (14.1-18.0); Lymphocytes # 0.9 K/mm3 (0.7-4.5); Lymphocytes % 63.7 % (10-50); Mean Corpuscular HGB Conc 32.2 g/dL (31.8-35.4); Mean Corpuscular Hemoglobin 35.4 pg (27.0-31.2); Mean Platelet Volume 10.2 fl (7.4-10.4); Monocytes # 0.1 K/mm3 (0.1-1.0); Monocytes % 5.9 % (1.7-9.3); Neutrophils # 0.3 K/mm3 (1.8-7.8); Neutrophils % 21.6 % (37.0-80.0); Red Blood Count 2.86 M/mm3 (4.60-6.20); Red Cell Distribution Width 17.9 % (11.5-17.5); White Blood Count 1.4 K/mm3 (4.8-10.8)
[2024-02-13 11:44] LABS: MANUAL DIFFERENTIAL MANUAL DIFFERENTIAL (MANUAL DIFF); Platelet Count 30 K/mm3 (142-424)
[2024-02-13 12:49] LABS: Eosinophils % 8 % (0-3); Lymphocytes % 64 % (10-50); Monocytes % 2 % (2-9); Neutrophils % 20 % (42-76); Total Cells Counted 50
[2024-02-13 12:51] LABS: Anisocytosis 1+; Macrocytosis 1+; Platelet Estimate Marked Decrease
[2024-02-13 12:53] LABS: Spherocytes 1+
== END 2024-02-13 10:55 | disposition home or self-care (01) ==
LOC: INF 10:33
PROVIDERS: PCP Internal Medicine Adolescent Medicine; Visit Provider Internal Medicine Medical Oncology
DX: D46.9 Myelodysplastic syndrome, unspecified (principal)
CPT/HCPCS: 36415; 85007; 85025

== ENCOUNTER 2024-02-19 09:37 | Outpatient (CLI) | payer MEDICARE, MEDICAID, SELFPAY ==
[2024-02-19 09:41] VITALS: BMI 30.7
[2024-02-19 09:57] LABS: Basophils % 1.7 % (0.1-2.0); Eosinophils # 0.1 K/mm3 (0.0-0.4); Hematocrit 34.9 % (42.0-52.0); Hemoglobin 11.1 g/dL (14.1-18.0); Lymphocytes # 1.1 K/mm3 (0.7-4.5); Lymphocytes % 68.3 % (10-50); Mean Corpuscular HGB Conc 31.9 g/dL (31.8-35.4); Mean Corpuscular Hemoglobin 35.4 pg (27.0-31.2); Mean Corpuscular Volume 110.9 fl (80-94); Mean Platelet Volume 10.1 fl (7.4-10.4); Monocytes # 0.1 K/mm3 (0.1-1.0); Monocytes % 3.5 % (1.7-9.3); Neutrophils # 0.4 K/mm3 (1.8-7.8); Neutrophils % 22.5 % (37.0-80.0); Platelet Count 87 K/mm3 (142-424); Red Blood Count 3.15 M/mm3 (4.60-6.20); Red Cell Distribution Width 17.9 % (11.5-17.5); White Blood Count 1.6 K/mm3 (4.8-10.8)
[2024-02-19 10:02] LABS: MANUAL DIFFERENTIAL MANUAL DIFFERENTIAL (MANUAL DIFF)
[2024-02-19 10:08] LABS: Alanine Aminotransferase 17 U/L (12-78); Albumin Level 3.7 g/dl (3.5-5.0); Albumin/Globulin Ratio 1.4 (1.1-1.8); Alkaline Phosphatase 70 U/L (38-126); Anion Gap 10.5 mEq/L (5-15); Aspartate Amino Transferase 33 U/L (17-59); Bilirubin,Total 0.6 mg/dl (0.2-1.3); Blood Urea Nitrogen 15 mg/dl (9-20); Calcium 9.2 mg/dl (8.4-10.2); Carbon Dioxide 28 mmol/L (22.0-30.0); Chloride 105 mmol/L (98-107); Creatinine Clearance Estimated 81 mL/min (50-200); Estimated Glomerular Filt Rate 65 ml/min (>60); GFR (African American) 78 ML/MIN (>60); Globulin 2.7 g/dL (1.3-3.2); Glucose 121 mg/dl (74-100); Potassium 4.5 mmoL/L (3.5-5.1); Sodium 139 mmol/L (136-145); Total Protein,Serum 6.4 g/dl (6.3-8.2)
[2024-02-19 11:06] LABS: Eosinophils % 4 % (0-3); Lymphocytes % 76 % (10-50); Monocytes % 4 % (2-9); Neutrophils % 16 % (42-76); Total Cells Counted 25
[2024-02-19 11:07] LABS: Macrocytosis 2+; Platelet Estimate Moderate Decrease
== END 2024-02-19 09:47 | disposition home or self-care (01) ==
LOC: INF 09:38
PROVIDERS: PCP Internal Medicine Adolescent Medicine; Visit Provider Internal Medicine Medical Oncology
DX: D46.Z Other myelodysplastic syndromes (principal)
CPT/HCPCS: 36415; 80053; 85007; 85025

== ENCOUNTER 2024-02-23 13:23 | Outpatient (CLI) | payer MEDICARE, MEDICAID, SELFPAY ==
[2024-02-23 13:26] VITALS: BMI 31.0
[2024-02-23 14:01] LABS: Basophils % 1.9 % (0.1-2.0); Eosinophils % 1.3 % (0.1-12.0); Hemoglobin 11.2 g/dL (14.1-18.0); Lymphocytes # 1.4 K/mm3 (0.7-4.5); Lymphocytes % 62.8 % (10-50); Mean Corpuscular Hemoglobin 35.8 pg (27.0-31.2); Mean Corpuscular Volume 112.1 fl (80-94); Mean Platelet Volume 8.9 fl (7.4-10.4); Monocytes # 0.1 K/mm3 (0.1-1.0); Monocytes % 4.3 % (1.7-9.3); Neutrophils # 0.7 K/mm3 (1.8-7.8); Neutrophils % 29.7 % (37.0-80.0); Platelet Count 117 K/mm3 (142-424); Red Blood Count 3.12 M/mm3 (4.60-6.20); Red Cell Distribution Width 17.3 % (11.5-17.5); White Blood Count 2.2 K/mm3 (4.8-10.8)
[2024-02-23 14:03] LABS: MANUAL DIFFERENTIAL MANUAL DIFFERENTIAL (MANUAL DIFF)
[2024-02-23 15:31] LABS: Eosinophils % 3 % (0-3); Lymphocytes % 69 % (10-50); Monocytes % 3 % (2-9); Neutrophils % 25 % (42-76); Platelet Estimate Slight Decrease; Total Cells Counted 75
[2024-02-23 15:32] LABS: Macrocytosis 2+
== END 2024-02-23 13:35 | disposition home or self-care (01) ==
LOC: INF 13:23
PROVIDERS: PCP Internal Medicine Adolescent Medicine; Visit Provider Internal Medicine Medical Oncology
DX: D46.9 Myelodysplastic syndrome, unspecified (principal); D46.21 Refractory anemia with excess of blasts 1
CPT/HCPCS: 36415; 85007; 85025

== ENCOUNTER 2024-03-01 09:54 | Outpatient (CLI) | payer MEDICARE, MEDICAID, SELFPAY ==
[2024-03-01 09:58] VITALS: BMI 31.0
--- NOTE | 2024-03-01 10:02 | PC.NURSE ---
1002-collected labs via venipuncture stick in left ac with butterfly needle; to call pt with results.
[2024-03-01 10:18] LABS: Basophils # 0.1 K/mm3 (0-0.2); Basophils % 3.4 % (0.1-2.0); Eosinophils % 1.9 % (0.1-12.0); Hematocrit 37.2 % (42.0-52.0); Hemoglobin 11.7 g/dL (14.1-18.0); Lymphocytes # 1.1 K/mm3 (0.7-4.5); Lymphocytes % 59.4 % (10-50); Mean Corpuscular HGB Conc 31.5 g/dL (31.8-35.4); Mean Corpuscular Hemoglobin 35.1 pg (27.0-31.2); Mean Corpuscular Volume 111.3 fl (80-94); Mean Platelet Volume 9.8 fl (7.4-10.4); Monocytes # 0.1 K/mm3 (0.1-1.0); Neutrophils # 0.5 K/mm3 (1.8-7.8); Neutrophils % 30.3 % (37.0-80.0); Platelet Count 95 K/mm3 (142-424); Red Blood Count 3.34 M/mm3 (4.60-6.20); Red Cell Distribution Width 16.3 % (11.5-17.5); White Blood Count 1.8 K/mm3 (4.8-10.8)
[2024-03-01 10:41] LABS: MANUAL DIFFERENTIAL MANUAL DIFFERENTIAL (MANUAL DIFF)
[2024-03-01 15:14] LABS: Eosinophils % 1 % (0-3); Lymphocytes % 65 % (10-50); Macrocytosis 2+; Monocytes % 1 % (2-9); Neutrophils % 33 % (42-76); Platelet Estimate Slight Decrease; Total Cells Counted 100
== END 2024-03-01 10:05 | disposition home or self-care (01) ==
LOC: INF 09:55
PROVIDERS: PCP Internal Medicine Adolescent Medicine; Visit Provider Internal Medicine Medical Oncology
DX: D46.22 Refractory anemia with excess of blasts 2 (principal); D46.9 Myelodysplastic syndrome, unspecified
CPT/HCPCS: 36415; 85007; 85025

== ENCOUNTER 2024-03-09 09:24 | Outpatient (CLI) | payer MEDICARE, MEDICAID, SELFPAY ==
[2024-03-09 09:28] VITALS: BMI 31.0
--- NOTE | 2024-03-09 09:33 | PC.NURSE ---
0931-collected labs via venipuncture stick with butterfly needle in left ac.
[2024-03-09 09:43] LABS: Basophils % 1.7 % (0.1-2.0); Eosinophils # 0.2 K/mm3 (0.0-0.4); Hematocrit 37.9 % (42.0-52.0); Hemoglobin 12.2 g/dL (14.1-18.0); Lymphocytes # 1.2 K/mm3 (0.7-4.5); Lymphocytes % 43.7 % (10-50); Mean Corpuscular HGB Conc 32.2 g/dL (31.8-35.4); Mean Corpuscular Hemoglobin 35.3 pg (27.0-31.2); Mean Corpuscular Volume 109.7 fl (80-94); Mean Platelet Volume 10.4 fl (7.4-10.4); Monocytes # 0.1 K/mm3 (0.1-1.0); Monocytes % 4.9 % (1.7-9.3); Neutrophils # 1.2 K/mm3 (1.8-7.8); Neutrophils % 42.7 % (37.0-80.0); Platelet Count 67 K/mm3 (142-424); Red Blood Count 3.45 M/mm3 (4.60-6.20); Red Cell Distribution Width 15.6 % (11.5-17.5); White Blood Count 2.7 K/mm3 (4.8-10.8)
== END 2024-03-09 09:33 | disposition home or self-care (01) ==
LOC: INF 09:25
PROVIDERS: PCP Internal Medicine Adolescent Medicine; Visit Provider Internal Medicine Medical Oncology
DX: D46.9 Myelodysplastic syndrome, unspecified (principal)
CPT/HCPCS: 36415; 85025

== ENCOUNTER 2024-03-16 08:15 | Outpatient (CLI) | payer MEDICARE, MEDICAID, SELFPAY ==
[2024-03-16 08:16] VITALS: BMI 31.0
--- NOTE | 2024-03-16 08:18 | PC.NURSE ---
0818-collected labs via venipuncture stick in left ac with butterfly needle;pt to oncology appointment.
[2024-03-16 08:39] LABS: Basophils % 1.2 % (0.1-2.0); Eosinophils # 0.3 K/mm3 (0.0-0.4); Eosinophils % 8.9 % (0.1-12.0); Hemoglobin 12.6 g/dL (14.1-18.0); Lymphocytes # 1.2 K/mm3 (0.7-4.5); Lymphocytes % 42.3 % (10-50); Mean Corpuscular HGB Conc 32.2 g/dL (31.8-35.4); Mean Corpuscular Hemoglobin 34.3 pg (27.0-31.2); Mean Corpuscular Volume 106.6 fl (80-94); Mean Platelet Volume 9.4 fl (7.4-10.4); Monocytes # 0.2 K/mm3 (0.1-1.0); Neutrophils # 1.2 K/mm3 (1.8-7.8); Neutrophils % 41.7 % (37.0-80.0); Platelet Count 51 K/mm3 (142-424); Red Blood Count 3.66 M/mm3 (4.60-6.20); Red Cell Distribution Width 15.3 % (11.5-17.5); White Blood Count 2.8 K/mm3 (4.8-10.8)
[2024-03-16 09:05] LABS: Chloride 106 mmol/L (98-107); Sodium 138 mmol/L (136-145)
[2024-03-16 09:08] LABS: Alanine Aminotransferase 17 U/L (12-78); Albumin Level 3.7 g/dl (3.5-5.0); Albumin/Globulin Ratio 1.3 (1.1-1.8); Alkaline Phosphatase 71 U/L (38-126); Aspartate Amino Transferase 31 U/L (17-59); Bilirubin,Total 0.5 mg/dl (0.2-1.3); Blood Urea Nitrogen 25 mg/dl (9-20); Carbon Dioxide 27 mmol/L (22.0-30.0); Creatinine Clearance Estimated 69 mL/min (50-200); Estimated Glomerular Filt Rate 53 ml/min (>60); GFR (African American) 65 ML/MIN (>60); Globulin 2.8 g/dL (1.3-3.2); Total Protein,Serum 6.5 g/dl (6.3-8.2)
[2024-03-16 09:09] LABS: Calcium 9.1 mg/dl (8.4-10.2); Glucose 91 mg/dl (74-100)
== END 2024-03-16 08:20 | disposition home or self-care (01) ==
LOC: INF 08:15
PROVIDERS: PCP Internal Medicine Adolescent Medicine; Visit Provider Internal Medicine Medical Oncology
DX: D46.21 Refractory anemia with excess of blasts 1 (principal); Z79.899 Other long term (current) drug therapy
CPT/HCPCS: 36415; 80053; 85025

== ENCOUNTER 2024-03-30 08:53 | Outpatient (CLI) | payer MEDICARE, MEDICAID, SELFPAY ==
[2024-03-30 08:56] VITALS: BMI 31.0
[2024-03-30 09:13] LABS: Basophils % 0.9 % (0.1-2.0); Eosinophils # 0.2 K/mm3 (0.0-0.4); Eosinophils % 5.4 % (0.1-12.0); Hematocrit 39.2 % (42.0-52.0); Hemoglobin 12.8 g/dL (14.1-18.0); Lymphocytes # 1.2 K/mm3 (0.7-4.5); Lymphocytes % 38.5 % (10-50); Mean Corpuscular HGB Conc 32.6 g/dL (31.8-35.4); Mean Corpuscular Volume 107.1 fl (80-94); Mean Platelet Volume 10.2 fl (7.4-10.4); Monocytes # 0.2 K/mm3 (0.1-1.0); Monocytes % 5.8 % (1.7-9.3); Neutrophils # 1.5 K/mm3 (1.8-7.8); Neutrophils % 49.4 % (37.0-80.0); Platelet Count 61 K/mm3 (142-424); Red Blood Count 3.66 M/mm3 (4.60-6.20); Red Cell Distribution Width 14.7 % (11.5-17.5)
== END 2024-03-30 09:19 | disposition home or self-care (01) ==
LOC: INF 08:54
PROVIDERS: PCP Internal Medicine Adolescent Medicine; Visit Provider Internal Medicine Medical Oncology
DX: D46.21 Refractory anemia with excess of blasts 1 (principal)
CPT/HCPCS: 36415; 85025

== ENCOUNTER 2024-04-14 08:40 | Outpatient (CLI) | payer MEDICARE, MEDICAID, SELFPAY ==
[2024-04-14 08:48] VITALS: BMI 31.4
--- NOTE | 2024-04-14 08:55 | PC.NURSE ---
0855-collected labs via venipuncture stick in left ac with butterfly needle;pt to oncology appointment.
[2024-04-14 09:11] LABS: Basophils % 0.9 % (0.1-2.0); Eosinophils # 0.1 K/mm3 (0.0-0.4); Eosinophils % 3.8 % (0.1-12.0); Hematocrit 36.9 % (42.0-52.0); Hemoglobin 12.1 g/dL (14.1-18.0); Lymphocytes # 1.1 K/mm3 (0.7-4.5); Lymphocytes % 52.8 % (10-50); Mean Corpuscular HGB Conc 32.8 g/dL (31.8-35.4); Mean Corpuscular Hemoglobin 34.7 pg (27.0-31.2); Mean Corpuscular Volume 105.7 fl (80-94); Mean Platelet Volume 10.7 fl (7.4-10.4); Monocytes # 0.1 K/mm3 (0.1-1.0); Monocytes % 6.2 % (1.7-9.3); Neutrophils # 0.8 K/mm3 (1.8-7.8); Neutrophils % 36.3 % (37.0-80.0); Red Blood Count 3.49 M/mm3 (4.60-6.20); Red Cell Distribution Width 15.2 % (11.5-17.5); White Blood Count 2.1 K/mm3 (4.8-10.8)
[2024-04-14 09:17] LABS: Platelet Count 33 K/mm3 (142-424)
[2024-04-14 09:19] LABS: MANUAL DIFFERENTIAL MANUAL DIFFERENTIAL (MANUAL DIFF)
[2024-04-14 09:21] LABS: Chloride 113 mmol/L (98-107)
[2024-04-14 09:22] LABS: Potassium 3.7 mmoL/L (3.5-5.1); Sodium 139 mmol/L (136-145)
[2024-04-14 09:24] LABS: Alanine Aminotransferase 19 U/L (12-78); Aspartate Amino Transferase 31 U/L (17-59); Blood Urea Nitrogen 24 mg/dl (9-20); Creatinine Clearance Estimated 76 mL/min (50-200); Estimated Glomerular Filt Rate 59 ml/min (>60); GFR (African American) 71 ML/MIN (>60)
[2024-04-14 09:25] LABS: Albumin Level 3.6 g/dl (3.5-5.0); Albumin/Globulin Ratio 1.3 (1.1-1.8); Alkaline Phosphatase 75 U/L (38-126); Anion Gap 6.7 mEq/L (5-15); Bilirubin,Total 0.5 mg/dl (0.2-1.3); Calcium 8.6 mg/dl (8.4-10.2); Carbon Dioxide 23 mmol/L (22.0-30.0); Globulin 2.8 g/dL (1.3-3.2); Glucose 130 mg/dl (74-100); Total Protein,Serum 6.4 g/dl (6.3-8.2)
[2024-04-14 10:21] LABS: Eosinophils % 2 % (0-3); Lymphocytes % 70 % (10-50); Macrocytosis 2+; Monocytes % 4 % (2-9); Neutrophils % 24 % (42-76); Platelet Estimate Marked Decrease; Total Cells Counted 50
== END 2024-04-14 08:55 | disposition home or self-care (01) ==
LOC: INF 08:43
PROVIDERS: Internal Medicine Medical Oncology; PCP Internal Medicine Adolescent Medicine; Visit Provider Internal Medicine Adolescent Medicine
DX: D46.21 Refractory anemia with excess of blasts 1 (principal); Z79.899 Other long term (current) drug therapy
CPT/HCPCS: 36415; 80053; 85007; 85025; 85027

== ENCOUNTER 2024-04-21 07:05 | Outpatient (CLI) | payer MEDICARE, MEDICAID, SELFPAY ==
[2024-04-21] VITALS (13 sets, daily range): BP systolic 130–190; BP diastolic 69–102; PULSE 64–81; RESP 18; TEMP 36.1–36.9; O2SAT 96–100; BMI 70.2
--- NOTE | 2024-04-21 07:10 | CT_ITS ---
FINAL REPORT CLINICAL HISTORY: .BONE MARROW BIOPSY, ELEVATED WHITE BLOOD CELL COUNT. 2MG VERSED 50MG FENTANYL FINDINGS: CT-GUIDED BONE MARROW BIOPSY HISTORY: Pancytopenia, myelodysplasia, elevated white blood cell count. ATTENDING PHYSICIAN: Dr. Thomas. PHYSICIAN XEROX MACHINE ASSEMBLER: Sonam Robert PA-C. PROCEDURE: Informed consent was obtained from the patient. Timeout procedure was performed prior to beginning. Patient was placed prone on the CT scanner. Localization images were performed. Patient's skin was marked over the left lower back. Patient was prepped and draped in the usual sterile fashion over the left lower back. Skin was anesthetized with 1% lidocaine. Access to the left posterior iliac bone was obtained using a bone biopsy needle. Approximately 18 mL of bone marrow aspirate was obtained. Following this, an approximate 1 cm core biopsy was obtained. Patient tolerated the procedure well and left the department good condition. 2 mg of Versed and 50 mcg of fentanyl were provided by the anesthesia service for procedural sedation. Overall sedation time was approximately 15 minutes. Continuous vital sign monitoring was performed throughout the procedure. IMPRESSION: Technically successful CT-guided bone marrow biopsy as above. Reviewed, Interpreted and Dictated by Antoni Thomas III, MD Transcribed by Sonam Robert PA-C Authenticated and [facility]
[2024-04-21 08:22] LABS: Basophils % 0.5 % (0.1-2.0); Eosinophils # 0.1 K/mm3 (0.0-0.4); Eosinophils % 3.8 % (0.1-12.0); Hematocrit 41.3 % (42.0-52.0); Hemoglobin 13.6 g/dL (14.1-18.0); Lymphocytes # 1.5 K/mm3 (0.7-4.5); Lymphocytes % 51.1 % (10-50); Mean Corpuscular HGB Conc 32.8 g/dL (31.8-35.4); Mean Corpuscular Hemoglobin 34.9 pg (27.0-31.2); Mean Corpuscular Volume 106.3 fl (80-94); Mean Platelet Volume 9.2 fl (7.4-10.4); Monocytes # 0.2 K/mm3 (0.1-1.0); Monocytes % 6.2 % (1.7-9.3); Neutrophils # 1.1 K/mm3 (1.8-7.8); Neutrophils % 38.4 % (37.0-80.0); Red Blood Count 3.89 M/mm3 (4.60-6.20); Red Cell Distribution Width 15.1 % (11.5-17.5)
[2024-04-21 08:24] LABS: MANUAL DIFFERENTIAL MANUAL DIFFERENTIAL (MANUAL DIFF); Platelet Count 32 K/mm3 (142-424)
[2024-04-21 08:30] LABS: Activated Partial Thrombo Time 27.9 seconds (22.8-30.6); INR 0.91 (0.9-1.1); Prothrombin Time 10.3 seconds (10.1-12.5)
[2024-04-21] MEDS: HEPARIN SODIUM 5,000 UNIT/ML VIAL 5000 UNIT (09:22)
[2024-04-21] MEDS: LIDOCAINE 1% 20ML MDV 20 ML (09:22)
[2024-04-21 09:34] LABS: Lymphocytes % 58 % (10-50); Macrocytosis 2+; Monocytes % 6 % (2-9); Neutrophils % 36 % (42-76); Platelet Estimate Marked Decrease; Total Cells Counted 50
== END 2024-04-21 11:20 | disposition home or self-care (01) ==
PROVIDERS: PCP Internal Medicine Adolescent Medicine; Visit Provider Internal Medicine Medical Oncology
DX: D46.9 Myelodysplastic syndrome, unspecified (principal)
CPT/HCPCS: 38221; 77012; 85007; 85025; 85027; 85097; 85610; 85730; 88184; 88185; 88305; 88311; 88360; J1644; J2250; J3010

== ENCOUNTER 2024-04-28 09:18 | Outpatient (CLI) | payer MEDICARE, MEDICAID, SELFPAY ==
[2024-04-28 09:22] VITALS: BMI 31.8
[2024-04-28 09:31] LABS: Basophils % 0.5 % (0.1-2.0); Eosinophils # 0.1 K/mm3 (0.0-0.4); Eosinophils % 3.7 % (0.1-12.0); Hematocrit 37.5 % (42.0-52.0); Hemoglobin 12.3 g/dL (14.1-18.0); Lymphocytes # 1.4 K/mm3 (0.7-4.5); Lymphocytes % 53.9 % (10-50); Mean Corpuscular HGB Conc 32.7 g/dL (31.8-35.4); Mean Corpuscular Hemoglobin 34.6 pg (27.0-31.2); Mean Corpuscular Volume 105.8 fl (80-94); Mean Platelet Volume 9.9 fl (7.4-10.4); Monocytes # 0.2 K/mm3 (0.1-1.0); Monocytes % 6.6 % (1.7-9.3); Neutrophils # 0.9 K/mm3 (1.8-7.8); Neutrophils % 35.1 % (37.0-80.0); Red Blood Count 3.54 M/mm3 (4.60-6.20); Red Cell Distribution Width 15.7 % (11.5-17.5); White Blood Count 2.6 K/mm3 (4.8-10.8)
[2024-04-28 09:35] LABS: Platelet Count 37 K/mm3 (142-424)
[2024-04-28 09:36] LABS: MANUAL DIFFERENTIAL MANUAL DIFFERENTIAL (MANUAL DIFF)
[2024-04-28 09:42] LABS: Alanine Aminotransferase 17 U/L (12-78); Albumin Level 3.8 g/dl (3.5-5.0); Albumin/Globulin Ratio 1.4 (1.1-1.8); Alkaline Phosphatase 73 U/L (38-126); Anion Gap 7.7 mEq/L (5-15); Aspartate Amino Transferase 28 U/L (17-59); Bilirubin,Total 0.7 mg/dl (0.2-1.3); Blood Urea Nitrogen 25 mg/dl (9-20); Calcium 9.2 mg/dl (8.4-10.2); Carbon Dioxide 27 mmol/L (22.0-30.0); Chloride 109 mmol/L (98-107); Creatinine Clearance Estimated 65 mL/min (50-200); Estimated Glomerular Filt Rate 49 ml/min (>60); GFR (African American) 59 ML/MIN (>60); Globulin 2.7 g/dL (1.3-3.2); Glucose 91 mg/dl (74-100); Potassium 3.7 mmoL/L (3.5-5.1); Sodium 140 mmol/L (136-145); Total Protein,Serum 6.5 g/dl (6.3-8.2)
[2024-04-28 09:53] LABS: Eosinophils % 2 % (0-3); Lymphocytes % 56 % (10-50); Monocytes % 11 % (2-9); Neutrophils % 30 % (42-76); Platelet Estimate Marked Decrease; RBC Morphology Normal; Total Cells Counted 100
[2024-04-28 09:54] LABS: Ovalocytes 1+
== END 2024-04-28 09:27 | disposition home or self-care (01) ==
LOC: INF 09:19
PROVIDERS: PCP Internal Medicine Adolescent Medicine; Visit Provider Internal Medicine Medical Oncology
DX: D46.9 Myelodysplastic syndrome, unspecified (principal)
CPT/HCPCS: 36415; 80053; 85007; 85025; 85027

== ENCOUNTER 2024-05-04 12:25 | Outpatient (CLI) | payer MEDICARE, MEDICAID, SELFPAY ==
[2024-05-04 12:35] VITALS: BMI 32.1
[2024-05-04 12:54] LABS: Basophils % 0.6 % (0.1-2.0); Eosinophils # 0.1 K/mm3 (0.0-0.4); Eosinophils % 3.1 % (0.1-12.0); Hematocrit 38.2 % (42.0-52.0); Hemoglobin 12.6 g/dL (14.1-18.0); Lymphocytes # 0.9 K/mm3 (0.7-4.5); Lymphocytes % 45.2 % (10-50); Mean Corpuscular Hemoglobin 34.7 pg (27.0-31.2); Mean Corpuscular Volume 105.3 fl (80-94); Mean Platelet Volume 9.3 fl (7.4-10.4); Monocytes # 0.1 K/mm3 (0.1-1.0); Monocytes % 6.7 % (1.7-9.3); Neutrophils # 0.9 K/mm3 (1.8-7.8); Neutrophils % 44.4 % (37.0-80.0); Red Blood Count 3.63 M/mm3 (4.60-6.20); Red Cell Distribution Width 15.4 % (11.5-17.5)
[2024-05-04 12:56] LABS: Platelet Count 40 K/mm3 (142-424)
[2024-05-04 13:00] LABS: Chloride 112 mmol/L (98-107); Sodium 142 mmol/L (136-145)
[2024-05-04 13:02] LABS: Alanine Aminotransferase 16 U/L (12-78); Alkaline Phosphatase 84 U/L (38-126); Aspartate Amino Transferase 29 U/L (17-59); Bilirubin,Total 0.5 mg/dl (0.2-1.3); Blood Urea Nitrogen 22 mg/dl (9-20); Carbon Dioxide 25 mmol/L (22.0-30.0); Creatinine Clearance Estimated 61 mL/min (50-200); Estimated Glomerular Filt Rate 45 ml/min (>60); GFR (African American) 55 ML/MIN (>60)
[2024-05-04 13:03] LABS: Albumin Level 3.8 g/dl (3.5-5.0); Albumin/Globulin Ratio 1.3 (1.1-1.8); Calcium 8.8 mg/dl (8.4-10.2); Glucose 89 mg/dl (74-100); Total Protein,Serum 6.8 g/dl (6.3-8.2)
[2024-05-04] MEDS: SODIUM CHLORIDE 0.9% IV (13:51)
[2024-05-04] MEDS: DECITABINE IV (13:51)
[2024-05-04] MEDS: 0.9 % SODIUM CHLORIDE 50 ML 100 ML IV (13:52)
[2024-05-04 13:55] VITALS: BP 160/79; PULSE 78; RESP 18; O2SAT 100
[2024-05-04] MEDS: PROCHLORPERAZINE 10MG TABLET 10 MG PO (14:04)
[2024-05-04 15:05] VITALS: BP 160/78; PULSE 76; RESP 18; O2SAT 100
== END 2024-05-04 15:05 | disposition home or self-care (01) ==
LOC: INF 12:28
PROVIDERS: PCP Internal Medicine Adolescent Medicine; Visit Provider Internal Medicine Medical Oncology
DX: D46.21 Refractory anemia with excess of blasts 1 (principal); Z79.899 Other long term (current) drug therapy
CPT/HCPCS: 80053; 85025; 96413; J0894; Q0164

== ENCOUNTER 2024-05-05 08:42 | Outpatient (CLI) | payer MEDICARE, MEDICAID, SELFPAY ==
[2024-05-05] MEDS: PROCHLORPERAZINE 10MG TABLET 10 MG PO (08:50)
[2024-05-05] MEDS: DECITABINE IV (09:19)
[2024-05-05] MEDS: SODIUM CHLORIDE 0.9% 50ML BAG 50 ML IV (09:19)
[2024-05-05] MEDS: SODIUM CHLORIDE 0.9% IV (09:19)
[2024-05-05 09:22] VITALS: BP 153/76; PULSE 85; RESP 18; O2SAT 100
[2024-05-05 10:43] VITALS: BP 146/87; PULSE 74; RESP 18; O2SAT 100
== END 2024-05-05 10:43 | disposition home or self-care (01) ==
LOC: INF 08:44
PROVIDERS: PCP Internal Medicine Adolescent Medicine; Visit Provider Internal Medicine Medical Oncology
DX: D46.21 Refractory anemia with excess of blasts 1 (principal); Z79.899 Other long term (current) drug therapy
CPT/HCPCS: 96413; J0894; Q0164

== ENCOUNTER 2024-05-06 08:38 | Outpatient (CLI) | payer MEDICARE, MEDICAID, SELFPAY ==
[2024-05-06 08:53] VITALS: BP 120/63; PULSE 83; RESP 18; TEMP 36.6; O2SAT 98
[2024-05-06] MEDS: SODIUM CHLORIDE 0.9% 50ML BAG 50 ML IV (08:53)
[2024-05-06] MEDS: PROCHLORPERAZINE 10MG TABLET 10 MG PO (08:53)
[2024-05-06] MEDS: SODIUM CHLORIDE 0.9% 10ML FLUSH SYRINGE 10 ML IV (08:55)
[2024-05-06] MEDS: DECITABINE IV (09:17)
[2024-05-06] MEDS: SODIUM CHLORIDE 0.9% IV (09:17)
[2024-05-06 09:23] VITALS: BP 144/66; PULSE 76; RESP 18; O2SAT 99
[2024-05-06 09:53] VITALS: BP 139/69; PULSE 77; RESP 18; O2SAT 99
== END 2024-05-06 10:30 | disposition home or self-care (01) ==
LOC: INF 08:39
PROVIDERS: PCP Internal Medicine Adolescent Medicine; Visit Provider Internal Medicine Medical Oncology
DX: D46.21 Refractory anemia with excess of blasts 1 (principal); Z79.899 Other long term (current) drug therapy
CPT/HCPCS: 96413; J0894; Q0164

== ENCOUNTER 2024-05-13 09:15 | Outpatient (CLI) | payer MEDICARE, MEDICAID, SELFPAY ==
[2024-05-13 09:21] VITALS: BMI 31.6
[2024-05-13 09:40] LABS: Basophils % 0.6 % (0.1-2.0); Eosinophils # 0.1 K/mm3 (0.0-0.4); Eosinophils % 2.8 % (0.1-12.0); Hematocrit 35.6 % (42.0-52.0); Hemoglobin 11.9 g/dL (14.1-18.0); Mean Corpuscular HGB Conc 33.3 g/dL (31.8-35.4); Mean Platelet Volume 9.8 fl (7.4-10.4); Monocytes # 0.1 K/mm3 (0.1-1.0); Monocytes % 3.1 % (1.7-9.3); Neutrophils # 0.5 K/mm3 (1.8-7.8); Neutrophils % 32.5 % (37.0-80.0); Red Blood Count 3.39 M/mm3 (4.60-6.20); Red Cell Distribution Width 15.8 % (11.5-17.5); White Blood Count 1.7 K/mm3 (4.8-10.8)
[2024-05-13 09:49] LABS: Platelet Count 23 K/mm3 (142-424)
[2024-05-13 09:50] LABS: MANUAL DIFFERENTIAL MANUAL DIFFERENTIAL (MANUAL DIFF)
[2024-05-13 10:14] LABS: Lymphocytes % 60 % (10-50); Monocytes % 2 % (2-9); Neutrophils % 38 % (42-76); RBC Morphology Normal; Total Cells Counted 100
[2024-05-13 10:15] LABS: Platelet Estimate Marked Decrease
== END 2024-05-13 09:32 | disposition home or self-care (01) ==
LOC: INF 09:16
PROVIDERS: PCP Internal Medicine Adolescent Medicine; Visit Provider Internal Medicine Medical Oncology
DX: D46.9 Myelodysplastic syndrome, unspecified (principal)
CPT/HCPCS: 36415; 85007; 85025; 85027

== ENCOUNTER 2024-05-20 09:18 | Outpatient (CLI) | payer MEDICARE, MEDICAID, SELFPAY ==
[2024-05-20 09:23] VITALS: BMI 31.8
[2024-05-20 09:48] LABS: Basophils % 0.5 % (0.1-2.0); Eosinophils % 2.8 % (0.1-12.0); Hematocrit 36.8 % (42.0-52.0); Hemoglobin 11.9 g/dL (14.1-18.0); Lymphocytes % 67.6 % (10-50); Mean Corpuscular HGB Conc 32.3 g/dL (31.8-35.4); Mean Corpuscular Volume 105.1 fl (80-94); Mean Platelet Volume 10.1 fl (7.4-10.4); Monocytes # 0.1 K/mm3 (0.1-1.0); Neutrophils # 0.4 K/mm3 (1.8-7.8); Neutrophils % 24.1 % (37.0-80.0); Red Cell Distribution Width 16.5 % (11.5-17.5); White Blood Count 1.5 K/mm3 (4.8-10.8)
[2024-05-20 09:51] LABS: MANUAL DIFFERENTIAL MANUAL DIFFERENTIAL (MANUAL DIFF); Platelet Count 26 K/mm3 (142-424)
[2024-05-20 10:19] LABS: Lymphocytes % 74 % (10-50); Monocytes % 5 % (2-9); Neutrophils % 21 % (42-76); Platelet Estimate Marked Decrease; RBC Morphology Normal; Total Cells Counted 100
--- NOTE | 2024-05-20 10:37 | PC.NURSE ---
0925 CBC collected per MD order via venipuncture to R AC x1 stick with butterfly needle. Patient tolerated well. Patient here for labs only
== END 2024-05-20 09:30 | disposition home or self-care (01) ==
LOC: INF 09:18
PROVIDERS: PCP Internal Medicine Adolescent Medicine; Visit Provider Internal Medicine Medical Oncology
DX: D46.9 Myelodysplastic syndrome, unspecified (principal)
CPT/HCPCS: 36415; 85007; 85025; 85027

== ENCOUNTER 2024-05-27 09:00 | Outpatient (CLI) | payer MEDICARE, MEDICAID, SELFPAY ==
[2024-05-27 09:16] VITALS: BMI 32.0
[2024-05-27 09:35] LABS: Basophils % 0.5 % (0.1-2.0); Eosinophils # 0.1 K/mm3 (0.0-0.4); Eosinophils % 2.5 % (0.1-12.0); Hematocrit 29.9 % (42.0-52.0); Hemoglobin 11.1 g/dL (14.1-18.0); Lymphocytes # 1.1 K/mm3 (0.7-4.5); Lymphocytes % 56.5 % (10-50); Mean Corpuscular Hemoglobin 39.9 pg (27.0-31.2); Mean Corpuscular Volume 107.7 fl (80-94); Mean Platelet Volume 9.9 fl (7.4-10.4); Monocytes # 0.1 K/mm3 (0.1-1.0); Monocytes % 7.1 % (1.7-9.3); Neutrophils # 0.6 K/mm3 (1.8-7.8); Neutrophils % 33.4 % (37.0-80.0); Platelet Count 54 K/mm3 (142-424); Red Blood Count 2.78 M/mm3 (4.60-6.20); Red Cell Distribution Width 17.6 % (11.5-17.5); White Blood Count 1.9 K/mm3 (4.8-10.8)
[2024-05-27 09:40] LABS: MANUAL DIFFERENTIAL MANUAL DIFFERENTIAL (MANUAL DIFF)
[2024-05-27 10:45] LABS: Lymphocytes % 66 % (10-50); Macrocytosis 2+; Monocytes % 6 % (2-9); Neutrophils % 28 % (42-76); Total Cells Counted 50
[2024-05-27 10:46] LABS: Platelet Estimate Marked Decrease
== END 2024-05-27 09:16 | disposition home or self-care (01) ==
LOC: INF 09:01
PROVIDERS: PCP Nurse Practitioner Family; Visit Provider Internal Medicine Medical Oncology
DX: D46.9 Myelodysplastic syndrome, unspecified (principal)
CPT/HCPCS: 36415; 85007; 85025; 85027

== ENCOUNTER 2024-06-01 08:09 | Outpatient (CLI) | payer MEDICARE, MEDICAID, SELFPAY ==
[2024-06-01 08:15] VITALS: BMI 32.0
[2024-06-01 08:40] LABS: Basophils % 1.2 % (0.1-2.0); Hematocrit 35.7 % (42.0-52.0); Hemoglobin 11.2 g/dL (14.1-18.0); Lymphocytes # 1.2 K/mm3 (0.7-4.5); Lymphocytes % 63.3 % (10-50); Mean Corpuscular HGB Conc 31.4 g/dL (31.8-35.4); Mean Corpuscular Hemoglobin 34.4 pg (27.0-31.2); Mean Corpuscular Volume 109.4 fl (80-94); Mean Platelet Volume 11.2 fl (7.4-10.4); Monocytes # 0.1 K/mm3 (0.1-1.0); Monocytes % 4.3 % (1.7-9.3); Neutrophils # 0.5 K/mm3 (1.8-7.8); Neutrophils % 29.2 % (37.0-80.0); Platelet Count 73 K/mm3 (142-424); Red Blood Count 3.26 M/mm3 (4.60-6.20); Red Cell Distribution Width 17.2 % (11.5-17.5); White Blood Count 1.8 K/mm3 (4.8-10.8)
[2024-06-01 08:44] LABS: MANUAL DIFFERENTIAL MANUAL DIFFERENTIAL (MANUAL DIFF)
[2024-06-01 08:56] LABS: Alanine Aminotransferase 19 U/L (12-78); Albumin Level 3.4 g/dl (3.5-5.0); Albumin/Globulin Ratio 1.2 (1.1-1.8); Alkaline Phosphatase 85 U/L (38-126); Anion Gap 5.7 mEq/L (5-15); Aspartate Amino Transferase 24 U/L (17-59); Bilirubin,Total 0.5 mg/dl (0.2-1.3); Blood Urea Nitrogen 24 mg/dl (9-20); Calcium 8.4 mg/dl (8.4-10.2); Carbon Dioxide 25 mmol/L (22.0-30.0); Chloride 112 mmol/L (98-107); Creatinine Clearance Estimated 65 mL/min (50-200); Estimated Glomerular Filt Rate 49 ml/min (>60); GFR (African American) 59 ML/MIN (>60); Globulin 2.9 g/dL (1.3-3.2); Glucose 129 mg/dl (74-100); Potassium 3.7 mmoL/L (3.5-5.1); Sodium 139 mmol/L (136-145); Total Protein,Serum 6.3 g/dl (6.3-8.2)
[2024-06-01 09:15] LABS: Lymphocytes % 79 % (10-50); Neutrophils % 21 % (42-76); Total Cells Counted 100
[2024-06-01 09:17] LABS: Anisocytosis 1+; Macrocytosis 1+; Platelet Estimate Moderate Decrease
[2024-06-01] MEDS: PROCHLORPERAZINE 10MG TABLET 10 MG PO (09:45)
[2024-06-01] MEDS: DECITABINE IV (10:18)
[2024-06-01] MEDS: SODIUM CHLORIDE 0.9% IV (10:18)
[2024-06-01 10:25] VITALS: BP 112/53; PULSE 80; RESP 18; TEMP 36.6; O2SAT 98
[2024-06-01 11:00] VITALS: BP 121/62; PULSE 78
[2024-06-01] MEDS: SODIUM CHLORIDE 0.9% 10ML FLUSH SYRINGE 10 ML IV (11:00)
[2024-06-01] MEDS: SODIUM CHLORIDE 0.9% 50ML BAG 50 ML IV (11:00)
[2024-06-01 11:25] VITALS: BP 123/67; PULSE 81
== END 2024-06-01 11:30 | disposition home or self-care (01) ==
LOC: INF 08:10
PROVIDERS: PCP Internal Medicine Adolescent Medicine; Visit Provider Internal Medicine Medical Oncology
DX: D46.9 Myelodysplastic syndrome, unspecified (principal)
CPT/HCPCS: 80053; 85007; 85025; 85027; 96413; J0894; Q0164

== ENCOUNTER 2024-06-02 08:44 | Outpatient (CLI) | payer MEDICARE, MEDICAID, SELFPAY ==
[2024-06-02] MEDS: PROCHLORPERAZINE 10MG TABLET 10 MG PO (08:45)
[2024-06-02] MEDS: DECITABINE IV (09:18)
[2024-06-02] MEDS: SODIUM CHLORIDE 0.9% 50ML BAG 50 ML IV (09:18)
[2024-06-02] MEDS: SODIUM CHLORIDE 0.9% IV (09:18)
[2024-06-02 09:25] VITALS: BP 141/63; PULSE 86; RESP 18; TEMP 36.6; O2SAT 97
[2024-06-02 10:00] VITALS: BP 139/64; PULSE 83
[2024-06-02 10:23] VITALS: BP 146/74; PULSE 83
== END 2024-06-02 10:30 | disposition home or self-care (01) ==
LOC: INF 08:45
PROVIDERS: PCP Internal Medicine Adolescent Medicine; Visit Provider Internal Medicine Medical Oncology
DX: C43.8 Malignant melanoma of overlapping sites of skin (principal); Z51.11 Encounter for antineoplastic chemotherapy; Z79.899 Other long term (current) drug therapy
CPT/HCPCS: 96413; J0894; Q0164

== ENCOUNTER 2024-06-03 08:31 | Outpatient (CLI) | payer MEDICARE, MEDICAID, SELFPAY ==
[2024-06-03 08:40] VITALS: BP 130/62; PULSE 77; RESP 18; TEMP 36.4; O2SAT 100
[2024-06-03] MEDS: PROCHLORPERAZINE 10MG TABLET 10 MG PO (08:40)
[2024-06-03] MEDS: SODIUM CHLORIDE 0.9% 50ML BAG 50 ML IV (08:53)
[2024-06-03] MEDS: SODIUM CHLORIDE 0.9% 10ML FLUSH SYRINGE 10 ML IV (08:56)
[2024-06-03] MEDS: DECITABINE IV (08:57)
[2024-06-03] MEDS: SODIUM CHLORIDE 0.9% IV (08:57)
[2024-06-03 09:00] VITALS: BP 124/69; PULSE 74; RESP 18; O2SAT 100
[2024-06-03 09:30] VITALS: BP 129/63; PULSE 76; RESP 18; O2SAT 99
[2024-06-03 10:05] VITALS: BP 135/75; PULSE 76; RESP 18; O2SAT 100
== END 2024-06-03 10:05 | disposition home or self-care (01) ==
LOC: INF 08:32
PROVIDERS: PCP Internal Medicine Adolescent Medicine; Visit Provider Internal Medicine Medical Oncology
DX: C43.8 Malignant melanoma of overlapping sites of skin (principal); Z51.11 Encounter for antineoplastic chemotherapy; Z79.899 Other long term (current) drug therapy
CPT/HCPCS: 96413; J0894; Q0164

== ENCOUNTER 2024-06-08 08:54 | Outpatient (CLI) | payer MEDICARE, MEDICAID, SELFPAY ==
[2024-06-08 08:58] VITALS: BMI 32.4
[2024-06-08 09:12] LABS: Basophils % 0.8 % (0.1-2.0); Eosinophils % 1.3 % (0.1-12.0); Hematocrit 32.1 % (42.0-52.0); Hemoglobin 10.7 g/dL (14.1-18.0); Lymphocytes # 0.5 K/mm3 (0.7-4.5); Lymphocytes % 48.1 % (10-50); Mean Corpuscular HGB Conc 33.5 g/dL (31.8-35.4); Mean Corpuscular Hemoglobin 35.2 pg (27.0-31.2); Mean Corpuscular Volume 105.3 fl (80-94); Mean Platelet Volume 11.1 fl (7.4-10.4); Neutrophils # 0.5 K/mm3 (1.8-7.8); Neutrophils % 47.8 % (37.0-80.0); Red Blood Count 3.05 M/mm3 (4.60-6.20); Red Cell Distribution Width 17.1 % (11.5-17.5); White Blood Count 1.1 K/mm3 (4.8-10.8)
[2024-06-08 09:13] LABS: Platelet Count 38 K/mm3 (142-424)
== END 2024-06-08 09:07 | disposition home or self-care (01) ==
LOC: INF 08:56
PROVIDERS: Internal Medicine Medical Oncology; PCP Internal Medicine Adolescent Medicine; Visit Provider Internal Medicine Adolescent Medicine
DX: D46.9 Myelodysplastic syndrome, unspecified (principal)
CPT/HCPCS: 36415; 85025

== ENCOUNTER 2024-06-15 18:21 | Inpatient (IN) | payer MEDICARE, MEDICAID, SELFPAY ==
[2024-06-15] VITALS (7 sets, daily range): BP systolic 124–141; BP diastolic 53–66; PULSE 74–83; RESP 16–17; TEMP 36.8–36.9; O2SAT 91–95; BMI 33.2; BMI 32.1
--- NOTE | 2024-06-15 18:34 | CT_ITS ---
PROCEDURE INFORMATION: Exam: CT Thoracic Spine Without Contrast Exam date and time: 06/15/2024 6:56 PM Age: 79 years old Clinical indication: Condition or disease; Other: Cancer bone marrow; Additional info: Midline t/l spine ttp TECHNIQUE: Imaging protocol: Computed tomography of the thoracic spine without contrast. Radiation optimization: All CT scans at this facility use at least one of these dose optimization techniques: automated exposure control; mA and/or kV adjustment per patient size (includes targeted exams where dose is matched to clinical indication); or iterative reconstruction. COMPARISON: CT LUMBAR SPINE WO CON 06/15/2024 6:53 PM FINDINGS: Bones/joints: There is no evidence of acute fracture.There is no evidence of malalignment or dislocation. Anterior osteophyte formation in the distal half of the thoracic spine Chronic unhealed avulsion fractures off of many of the posterior spinous processes Soft tissues: Unremarkable. Heart: There is calcification of the aortic valve annulus. There is calcification of the mitral valve annulus. Coronary arteries: Coronary artery calcifications may indicate coronary artery disease. IMPRESSION: There is no evidence of acute fracture.There is no evidence of malalignment or dislocation.
--- NOTE | 2024-06-15 18:34 | CT_ITS ---
PROCEDURE INFORMATION: Exam: CT Pelvis Without Contrast, Skeleton Exam date and time: 06/15/2024 6:50 PM Age: 79 years old Clinical indication: Pain and condition or disease; Other: Cancer bone marrow; Pelvic pain; Additional info: Midline t/l spine ttp TECHNIQUE: Imaging protocol: Computed tomography of the pelvis without contrast. Exam focused on the skeleton. Radiation optimization: All CT scans at this facility use at least one of these dose optimization techniques: automated exposure control; mA and/or kV adjustment per patient size (includes targeted exams where dose is matched to clinical indication); or iterative reconstruction. COMPARISON: CT ABDOMEN PELVIS W CON 01/15/2024 5:45 AM FINDINGS: Bones/joints: There is no evidence of acute fracture.There is no evidence of malalignment or dislocation. Based disc bulge at L5/S1 may represent degenerative disc disease. Soft tissues: Unremarkable. IMPRESSION: 1. There is no evidence of acute fracture.There is no evidence of malalignment or dislocation. 2. Based disc bulge at L5/S1 may represent degenerative disc disease.
--- NOTE | 2024-06-15 18:34 | CT_ITS ---
PROCEDURE INFORMATION: Exam: CT Lumbar Spine Without Contrast Exam date and time: 06/15/2024 6:53 PM Age: 79 years old Clinical indication: Pain and condition or disease; Other: Cancer bone marrow; Low back pain; Additional info: Midline t/l spine ttp TECHNIQUE: Imaging protocol: Computed tomography of the lumbar spine without contrast. Radiation optimization: All CT scans at this facility use at least one of these dose optimization techniques: automated exposure control; mA and/or kV adjustment per patient size (includes targeted exams where dose is matched to clinical indication); or iterative reconstruction. COMPARISON: CT LUMBAR SPINE WO CON 06/15/2024 6:53 PM FINDINGS: Bones/joints: There is no evidence of acute fracture.There is no evidence of malalignment or dislocation. Anterior osteophyte formation L1 through L5. Broad-based disc bulge at L5/S1 may represent degenerative disc disease.. Soft tissues: Unremarkable. IMPRESSION: 1. There is no evidence of acute fracture.There is no evidence of malalignment or dislocation. 2. Broad-based disc bulge at L5/S1 may represent degenerative disc disease..
[2024-06-15 18:51] LABS: Albumin Level 3.4 g/dl (3.5-5.0); Chloride 107 mmol/L (98-107); Sodium 135 mmol/L (136-145)
[2024-06-15 18:52] LABS: Basophils % 1.5 % (0.1-2.0); Eosinophils % 3.5 % (0.1-12.0); Hematocrit 27.1 % (42.0-52.0); Hemoglobin 8.9 g/dL (14.1-18.0); Lymphocytes # 0.7 K/mm3 (0.7-4.5); Lymphocytes % 57.5 % (10-50); Mean Corpuscular HGB Conc 32.8 g/dL (31.8-35.4); Mean Corpuscular Hemoglobin 34.7 pg (27.0-31.2); Mean Corpuscular Volume 105.8 fl (80-94); Mean Platelet Volume 9.4 fl (7.4-10.4); Monocytes % 3.1 % (1.7-9.3); Neutrophils # 0.4 K/mm3 (1.8-7.8); Neutrophils % 34.5 % (37.0-80.0); Potassium 4.2 mmoL/L (3.5-5.1); Red Blood Count 2.56 M/mm3 (4.60-6.20); Red Cell Distribution Width 17.8 % (11.5-17.5); White Blood Count 1.2 K/mm3 (4.8-10.8)
[2024-06-15 18:54] LABS: Alanine Aminotransferase 52 U/L (12-78); Albumin/Globulin Ratio 1.1 (1.1-1.8); Alkaline Phosphatase 130 U/L (38-126); Anion Gap 7.2 mEq/L (5-15); Aspartate Amino Transferase 53 U/L (17-59); Bilirubin,Total 1.4 mg/dl (0.2-1.3); Blood Urea Nitrogen 24 mg/dl (9-20); Carbon Dioxide 25 mmol/L (22.0-30.0); Creatinine Clearance Estimated 67 mL/min (50-200); Estimated Glomerular Filt Rate 49 ml/min (>60); GFR (African American) 59 ML/MIN (>60); Total Protein,Serum 6.4 g/dl (6.3-8.2)
[2024-06-15 18:55] LABS: Calcium 8.2 mg/dl (8.4-10.2); Glucose 117 mg/dl (74-100)
[2024-06-15 18:57] LABS: MANUAL DIFFERENTIAL MANUAL DIFFERENTIAL (MANUAL DIFF); Platelet Count 25 K/mm3 (142-424)
[2024-06-15 19:00] LABS: C-Reactive Protein 80.1 mg/L (0-4)
--- NOTE | 2024-06-15 19:09 | ED_ITS ---
Discharge Plan Disposition Patient Disposition: Admitted Condition: Fair Clinical Impressions Clinical Impression: Back pain Discharge ED Provider: Junior Dimas Adult HPI General Chief complaint: PAIN Stated complaint: Back Pain Time Seen by Provider: 06/15/24 18:23 Mode of Arrival: EMS Source of Information: Patient Limitations: No Limitations Description of Symptoms (Recalled from ER Triage Doc. by RN): pt presents to ED with c/o lower back pain ongoing for 3-4 days. pt reports difficulty with ambulation. no injury reported. History of Present Illness HPI narrative: Patient is a 79-year-old male with history of myelodysplastic syndrome, currently on chemotherapy, hypertension, hyperlipidemia, CAD, chronic lumbar back pain. Patient presents today for back pain. He reports that it has been worsening over the last 3 to 4 days and not amenable to his home hydrocodone's and muscle relaxers. He reports that it is midline in nature and in the low back. He reports that he was working in the yard the day before that his back pain began. Did not recall hearing a pop or having any falls. He denies any numbness weakness tingling, urinary changes, bowel changes, saddle anesthesia. No fevers. Related Data Home Medications ?Medication ?Instructions ?Recorded ?Confirmed tamsulosin 0.4 mg capsule (Flomax) 0.8 mg PO HS Prostate issues 07/30/18 06/15/24 meloxicam 15 mg tablet 15 mg PO DAILY pain 04/19/21 06/15/24 oxycodone-acetaminophen 7.5 mg-325 1 tab PO Q8H Pain 06/14/21 06/15/24 mg tablet cyclobenzaprine 10 mg tablet 10 mg PO NEEDED PRN Muscle Spasm 07/30/22 06/15/24 escitalopram oxalate 20 mg tablet 20 mg PO DAILY Depression 03/28/23 06/15/24 buspirone 10 mg tablet 10 mg PO NEEDED PRN Anxiety 08/14/23 06/15/24 levocetirizine 5 mg tablet 5 mg PO DAILY Allergies 06/15/24 06/15/24 Previous Rx's ?Medication ?Instructions ?Recorded omeprazole 20 mg capsule,delayed 20 mg PO DAILY 4 weeks #28 caps 01/15/24 release Allergies Allergy/AdvReac Type Severity Reaction Status Date / Time No Known Allergies Allergy Verified 06/03/24 09:15 [facility] Disclaimer: The information contained in this section may have been updated after the patient was seen, as this information can be updated by other users. Medical History Abnormal findings on diagnostic imaging of heart and coronary circulation History of compression fracture of spine DJD (degenerative joint disease) Chronic back pain MDS (myelodysplastic syndrome) Anxiety BPH (benign prostatic hyperplasia) Kidney stones GERD (gastroesophageal reflux disease) Atrial fibrillation History of hoarseness History of chemotherapy Hypertension Hyperlipidemia Heart murmur Cancer Surgical History History of bone marrow biopsy Family History Other Asthma Cancer Heart attack Stroke Social History Smoking Status: Former smoker tobacco type: cigarettes packs per day: 3 alcohol intake: current alcohol intake frequency: 3 or more drinks per day substance use type: denies use current occupational status: retired Travel in the last 8 weeks: None household members: significant other housing: house current occupational exposures/hazards: No caffeine: Yes ROS Obtained: Yes All systems reviewed & no additional complaints except as documented Physical Exam General General appearance: alert and in no apparent distress Head Head exam: atraumatic and normocephalic Eye Eye exam: Present PERRL and EOMI ENT ENT exam: Present normal oropharynx Neck Neck exam: Present full ROM and trachea midline Chest Chest inspection: Present symmetric chest wall rise Respiratory Respiratory exam: Present normal lung sounds bilaterally; Absent stridor Cardiovascular Cardiovascular exam: Present regular rate and normal rhythm Abdominal Exam Abdominal exam: Present soft; Absent distention or tenderness Extremities Exam Extremities exam: Present full ROM Back Exam Back exam: Present normal inspection and tenderness (exquisite lumbar spine ttp. no stepoffs or deformities) Neurological Exam Neurological exam: Present alert, oriented X3, motor sensory deficit and reflexes normal Psychiatric Psychiatric exam: Present normal mood Skin Skin exam: Present warm and dry Medical Decision Making Medical Records Medical records reviewed: Yes I reviewed the patient's medical records. MR Comment: Independently reviewed patient's medical records from his oncologist Dr. Salcedo indicating current chemotherapy regimens, most recently seen on 06/01/2024. Moose Inquiry Pt receiving controlled substance: No Vital Signs: 06/15/24 18:22 06/15/24 19:23 06/15/24 20:00 Temperature 98.5 F Temperature Source Oral Pulse Rate 75 82 Pulse Rate [Left Radial] 83 Respiratory Rate 16 Blood Pressure 141/66 H 137/55 L Blood Pressure [Right Arm] 130/63 Blood Pressure Mean Blood Pressure Mean [Right Arm] 85 Blood Pressure Source Blood Pressure Position 02 Sat by Pulse Oximetry 95 95 91 L Oxygen Delivery Method Room Air 06/15/24 20:30 06/15/24 20:50 Temperature 98.3 F Temperature Source Oral Pulse Rate 74 Pulse Rate [Left Radial] Respiratory Rate 17 Blood Pressure 130/57 L 124/53 L Blood Pressure [Right Arm] Blood Pressure Mean 72 Blood Pressure Mean [Right Arm] Blood Pressure Source Automatic Cuff Blood Pressure Position Supine 02 Sat by Pulse Oximetry Oxygen Delivery Method Room Air Lab Data Lab Results 06/15/24 18:30: WBC 1.2 L*, RBC 2.56 L, Hgb 8.9 L, Hct 27.1 L, MCV 105.8 H, MCH 34.7 H, MCHC 32.8, RDW 17.8 H, Plt Count 25 L*, MPV 9.4, Neut % (Auto) 34.5 L, L ymph % (Auto) 57.5 H, [place] % (Auto) 3.1, Eos % (Auto) 3.5, Baso % (Auto) 1.5, N eut # (Auto) 0.4 L*, Lymph # (Auto) 0.7, [place] # (Auto) 0.0 L, Eos # (Auto) 0.0, Baso # (Auto) 0.0, Total Counted 100, Neutrophils % (Manual) 33 L, Lymphocytes % (Manual) 61 H, Monocytes % (Manual) 4, Eosinophils % (Manual) 2, Platelet Estimate Moderate d, Poikilocytosis 1+, Anisocytosis 1+, Microcytosis 1+, Macrocytosis 1+, Tear Drop Cells 1+, Ovalocytes 1+, ESR > 140 H, Sodium 135 L, Potassium 4.2, Chloride 107, Carbon Dioxide 25, Anion Gap 7.2, BUN 24 H, C reatinine 1.40 H, Estimated Creat Clear 67, Estimated GFR 49 L, Est GFR ( Amer) 59, Glucose 117 H, Calcium 8.2 L, Total Bilirubin 1.4 H, AST 53, ALT 52, A lkaline Phosphatase 130 H, C-Reactive Protein 80.1 H, Total Protein 6.4, Albumin 3.4 L, Globulin 3.0, Albumin/Globulin Ratio 1.1 06/15/24 20:45: Urine Color Yellow, Urine Appearance Clear, Urine pH 6.0, Ur Specific [place] >= 1.030, Urine Protein Negative, Urine Glucose (UA) Negative, Urine Ketones Negative, Urine Blood Negative, Urine Nitrate Negative, Urine Bilirubin 1+ A, Urine Urobilinogen 4.0, Ur Leukocyte Esterase Negative 06/15/24 18:30 06/15/24 18:30 Orders (Tests/Meds): ED MEDICATIONS Generic Name Dose Route Start Last Admin Trade Name Freq PRN Reason Stop Dose Admin Acetaminophen 650 mg 06/15/24 20:46 Acetaminophen 325mg Tab PO 07/15/24 20:45 Q4HP PRN Fever or Mild Pain (1-3) Lactated Ringer's 1,000 mls @ 50 mls/hr 06/15/24 21:00 Lactated Ringer's 1000 Ml Bag IV 07/15/24 20:59 .Q20H CHRISTIAN Morphine Sulfate 4 mg 06/15/24 20:39 06/15/24 20:53 Morphine 4mg/Ml Syringe IV 06/15/24 20:40 4 mg ONCE ONE Administration Morphine Sulfate 4 mg 06/15/24 20:46 Morphine 2mg/Ml Syringe IV 07/15/24 20:45 Q2HP PRN Severe Pain (7-10) Ondansetron HCl 4 mg 06/15/24 20:46 Ondansetron 4mg/2ml Vial IV 07/15/24 20:45 Q6HP PRN Nausea Pantoprazole Sodium 40 mg 06/16/24 09:00 Pantoprazole 40mg Tablet PO 07/16/24 08:59 DAILY CHRISTIAN Sodium Chloride 10 ml 06/15/24 20:46 Sodium Chloride 0.9% 10ml Flush Syringe IV 07/15/24 20:45 NEEDED PRN Maintain IV Site Sodium Chloride 10 ml 06/15/24 20:46 Sodium Chloride 0.9% 10ml Flush Syringe IV 07/15/24 20:45 NEEDED PRN Maintain IV Site Discontinued Medications Generic Name Dose Route Start Last Admin Trade Name Freq PRN Reason Stop Dose Admin Morphine Sulfate 4 mg 06/15/24 18:34 06/15/24 19:23 Morphine 4mg/Ml Syringe IV 06/15/24 18:35 4 mg ONCE ONE Administration Ondansetron HCl 4 mg 06/15/24 18:34 06/15/24 19:23 Ondansetron 4mg/2ml Vial IV 06/15/24 18:35 4 mg ONCE ONE Administration ORDERS Category Date Time Status CT bony pelvis Stat Cat Scan 06/15/24 18:[address] lumbar spine wo con Stat Cat Scan 06/15/24 18:[address] thoracic spine wo con Stat Cat Scan 06/15/24 18:34 Completed Consult to Case Management [CONS] Routine Cons 06/15/24 20:46 Active C-Reactive Protein Stat Lab 06/15/24 18:30 Completed Complete Blood Count Auto Diff AMLAB Lab 06/16/24 06:00 Ordered Complete Blood Count Auto Diff Stat Lab 06/15/24 18:30 Completed Comprehensive Metabolic Panel AMLAB Lab 06/16/24 06:00 Ordered Comprehensive Metabolic Panel Stat Lab 06/15/24 18:30 Completed Erythrocyte Sedimentation Rate Stat Lab 06/15/24 18:30 Completed Magnesium AMLAB Lab 06/16/24 06:00 Ordered UA/RFX Microscopic Stat Lab 06/15/24 20:45 Completed Medical Decision Narrative: In summary, this 79-year-old male presents to the emergency department today with back pain. On initial evaluation patient is afebrile hemodynamically stable and neurovascularly intact. On exam, patient is exquisite tenderness to the midline lumbar spine. His neurologic exam is reassuring distally I have low suspicion for cauda equina given no saddle anesthesia or urinary incontinence. Will obtain PVRs. He has a positive straight leg raise, indicating sciatica as well. Differential diagnosis includes but is not limited to fracture, dislocation, sprain, strain, neurovascular compromise, cauda equina. Based on these concerns, I ordered CT lumbar, thoracic, pelvis bony windows. CBC, CMP, ESR, CRP. I reviewed prior records including hematology oncology notes which indicate myelodysplastic syndrome, pancytopenia and bone marrow with 6% blasts. Patient received morphine, Zofran for treatment. Labs personally reviewed demonstrate pancytopenia, specifically thrombocytopenia that is a 25, neutropenia at 400,. CT imaging personally interpreted demonstrate no fracture or dislocation. Final read remarks upon a disc bulge at L5-S1.. Patient remains neurovascularly intact while here, and full motor intact in lower extremities. PVR less than 100 cc, low suspicion for cauda equina. Patient is still unable to ambulate after IV narcotic pain control here. Given that he is unable to ambulate and is not able to perform his activities of daily living at home, felt reasonable to consult for admission. I had an interactive discussion with hospitalist who agrees to admit the patient to service for further workup and definitive management patient was transferred to service hemodynamically stable condition and neurovasc intact. Critical Care Critical Care Time Critical Care Time: No
[2024-06-15] MEDS: MORPHINE 4MG/ML SYRINGE 4 MG IV ×2 (19:23→20:53)
[2024-06-15] MEDS: ONDANSETRON 4MG/2ML VIAL 4 MG IV (19:23)
[2024-06-15 20:18] LABS: Eosinophils % 2 % (0-3); Lymphocytes % 61 % (10-50); Monocytes % 4 % (2-9); Neutrophils % 33 % (42-76); Total Cells Counted 100
[2024-06-15 20:19] LABS: Ovalocytes 1+; Platelet Estimate Moderate D; Poikilocytosis 1+; Tear Drop Cells 1+
[2024-06-15 20:20] LABS: Anisocytosis 1+; Macrocytosis 1+; Microcytosis 1+
--- NOTE | 2024-06-15 20:21 | PC.NURSE ---
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 pt being admitted to hospitalist for lower back pain.
[2024-06-15 20:32] LABS: Erythrocyte Sedimentation Rate > 140 mm/hr (0-20)
--- NOTE | 2024-06-15 20:42 | PC.NURSE ---
called report to RAMIREZ RN on 2nd floor and answered all questions
--- NOTE | 2024-06-15 21:04 | PC.NURSE ---
Patient arrived to floor via stretcher from ED at 21:02.
[2024-06-15 21:05] LABS: Appearance,Urine CLEAR (Clear); Blood, Urine Negative (Negative); Color,Urine YELLOW (Yellow); Glucose,Urine (UA) Negative (Negative); Ketones,Urine Negative (Negative); Leukocyte Esterase,Urine Negative (Negative); Nitrate,Urine Negative (Negative); Protein,Urine Negative (Negative); Specific Gravity, Urine >= 1.030 (1.005-1.030)
[2024-06-15 21:08] LABS: Bilirubin,Urine 1+ (Negative)
--- NOTE | 2024-06-15 21:41 | P.HP_ITS ---
History of Present Illness *Admission Date: 06/15/24 *Reason for visit:: Patient has come to the emergency room due to increasing severe lower back *History of present illness: Patient has a myelodysplastic syndrome with extreme low WBCs and platelet. His oncologist is Dr. Whitt. The back pain began kind of suddenly on Friday it was not controlled by his present pain medicines at the house. Progressively worsened until any movement is severe, he lives at home with his and she is unable to care for him or move him or get him out of bed and his present condition. He reports no other symptoms Has a history of a compression fracture of his spine 20 years ago., And noted that before this event and his cancer he just considered his back normal gave him some pain but never any significant pain that would keep him from movement. [facility] Disclaimer: The information contained in this section may have been updated after the patient was seen, as this information can be updated by other users. Medical History Abnormal findings on diagnostic imaging of heart and coronary circulation History of compression fracture of spine DJD (degenerative joint disease) Chronic back pain MDS (myelodysplastic syndrome) Anxiety BPH (benign prostatic hyperplasia) Kidney stones GERD (gastroesophageal reflux disease) Atrial fibrillation History of hoarseness History of chemotherapy Hypertension Hyperlipidemia Heart murmur Cancer Surgical History History of bone marrow biopsy Family History Other Asthma Cancer Heart attack Stroke Social History (Updated 06/15/24 @ 22:10 by Sharron Nevarez RN) Smoking Status: Former smoker tobacco type: cigarettes packs per day: 3 alcohol intake: current alcohol intake frequency: 3 or more drinks per day substance use type: denies use current occupational status: retired Travel in the last 8 weeks: None household members: significant other housing: house current occupational exposures/hazards: No caffeine: Yes Review of Systems Review of Systems Review of systems:: pertinent systems reviewed and negative unless documented below Review of systems (narrative): Patient is lying flat on the stretcher in the emergency room his is in the room with him, both answer questions very well Constitutional Constitutional: Reports system reviewed and no additional complaints, except as documented and Reports as per HPI Comments: Patient is noted that he is the same as previous except for this sudden onset of back pain Eyes Eyes: Reports as per HPI ENT Ears, Nose, Mouth, and Throat: Reports as per HPI *Cardiovascular Cardiovascular: Reports as per HPI *Respiratory Respiratory: Reports as per HPI Comments: Denies any respiratory difficulty lying flat *Gastrointestinal Gastrointestinal: Reports as per HPI *Genitourinary Genitourinary: Reports as per HPI Comments: Noted that he had a bowel movement yesterday that he has no problems controlling his urine *Musculoskeletal Musculoskeletal: Reports abnormal gait and Reports arthralgias Comments: Severe lower back pain made worse with any type of hip movement, is unable to stand also severe pain if trying to turn Integumentary/Breasts Skin/Breast: Reports as per HPI *Neurologic Neurologic: Reports abnormal gait Comments: Denies any loss of sensation to lower extremities Psychiatric Psychiatric: Reports as per HPI Endocrine Endocrine: Reports as per HPI Hematologic/Lymphatic Hematologic/Lymphatic: Reports as per HPI Allergic/Immunologic Allergic/Immunologic: Reports as per HPI Meds Home Medications and Allergies Home Medications ?Medication ?Instructions ?Recorded ?Confirmed ?Type tamsulosin 0.4 mg capsule (Flomax) 0.8 mg PO HS Prostate issues 07/30/18 06/15/24 History meloxicam 15 mg tablet 15 mg PO DAILY pain 04/19/21 06/15/24 History oxycodone-acetaminophen 7.5 mg-325 1 tab PO Q8H Pain 06/14/21 06/15/24 History mg tablet cyclobenzaprine 10 mg tablet 10 mg PO NEEDED PRN Muscle Spasm 07/30/22 06/15/24 History escitalopram oxalate 20 mg tablet 20 mg PO DAILY Depression 03/28/23 06/15/24 History buspirone 10 mg tablet 10 mg PO NEEDED PRN Anxiety 08/14/23 06/15/24 History omeprazole 20 mg capsule,delayed 20 mg PO DAILY 4 weeks #28 caps 01/15/24 06/15/24 Rx release levocetirizine 5 mg tablet 5 mg PO DAILY Allergies 06/15/24 06/15/24 History New Prescriptions to Start Prescriptions: Allergies Allergy/AdvReac Type Severity Reaction Status Date / Time No Known Allergies Allergy Verified 06/03/24 09:15 Exam Data for Last 24 hours Vital signs and Labs for Last 24 Hours: Temp Pulse Resp BP Pulse Ox O2 Del Method 98.3 F 74 17 124/53 L 95 Room Air 06/15/24 21:12 06/15/24 21:12 06/15/24 21:12 06/15/24 21:12 06/15/24 21:12 06/15/24 21:12 Laboratory Results - last 24 hr 06/15/24 18:30: WBC 1.2 L*, RBC 2.56 L, Hgb 8.9 L, Hct 27.1 L, MCV 105.8 H, MCH 34.7 H, MCHC 32.8, RDW 17.8 H, Plt Count 25 L*, MPV 9.4, Neut % (Auto) 34.5 L, Lymph % (Auto) 57.5 H, [place] % (Auto) 3.1, Eos % (Auto) 3.5, Baso % (Auto) 1.5, Neut # (Auto) 0.4 L*, Lymph # (Auto) 0.7, [place] # (Auto) 0.0 L, Eos # (Auto) 0.0, Baso # (Auto) 0.0, Total Counted 100, Neutrophils % (Manual) 33 L, Lymphocytes % (Manual) 61 H, Monocytes % (Manual) 4, Eosinophils % (Manual) 2, Platelet Estimate Moderate d, Poikilocytosis 1+, Anisocytosis 1+, Microcytosis 1+, Macrocytosis 1+, Tear Drop Cells 1+, Ovalocytes 1+, ESR > 140 H, Sodium 135 L, Potassium 4.2, Chloride 107, Carbon Dioxide 25, Anion Gap 7.2, BUN 24 H, Creatinine 1.40 H, Estimated Creat Clear 67, Estimated GFR 49 L, Est GFR (Yaima n Amer) 59, Glucose 117 H, Calcium 8.2 L, Total Bilirubin 1.4 H, AST 53, ALT 52, Alkaline Phosphatase 130 H, C-Reactive Protein 80.1 H, Total Protein 6.4, Albumin 3.4 L, Globulin 3.0, Albumin/Globulin Ratio 1.1 06/15/24 20:45: Urine Color Yellow, Urine Appearance Clear, Urine pH 6.0, Ur Specific [place] >= 1.030, Urine Protein Negative, Urine Glucose (UA) Negative, Urine Ketones Negative, Urine Blood Negative, Urine Nitrate Negative, Urine Bilirubin 1+ A, Urine Urobilinogen 4.0, Ur Leukocyte Esterase Negative I & O for Last 24 hours: Intake & Output 06/12/24 06/13/24 06/14/24 06/15/24 23:59 23:59 23:59 23:59 Weight 107.637 kg Radiology Reports for the Last 24 Hours: CT scan of thoracic lumbar and pelvis were done finding no acute problems except degenerative disc disease and hip arthritis Constitutional Constitutional: moderate distress Comments: Patient is not in pain while he is laying still any movement causes severe pain he states that the morphine has helped him immensely *Routine HEENT Exam Head: Present normocephalic and atraumatic Eye: Present EOMI, PERRL and normal accommodation ENT: Present mucous membranes dry *Routine Neck Exam Neck: Present supple and full ROM Comments: Moving his neck does not increase his back pain *Routine Respiratory Exam Respiratory: Present normal respiratory effort, able to speak in complete sentences and symmetric chest movement *Routine Cardiovascular Exam Cardiovascular: Present RRR, Normal S1 and Normal S2 Comments: Normal cap refill no edema turgor actually poor *Routine Abdominal Exam Abdominal: Present soft, normoactive bowel sounds and obese *Routine Rectal Exam Rectal:: deferred *Routine Genitalia Exam Genitalia:: deferred *Routine Extremities Exam Extremities: Present normal capillary refill Comments: Patient is able to move his ankles and feet well but in trying to move his knees or hips causes significant pain so this was not done Routine Back/Spine/Pelvis Exam Back/Spine: Present vertebral tenderness Comments: Exam was limited due to the patient's pain any type of movement of his pelvis even trying to sit him up causes significant pain so did not even attempt to roll him *Routine Skin Exam Skin: Present intact *Routine Neurological Exam Neurological: Present alert, oriented X3, CN II-XII intact, normal reflexes, vision grossly intact, hearing grossly intact and normal speech Comments: Normal equal sensation to both lower extremities Routine Psychiatric Exam Psychiatric: Present normal affect, normal thought process, cooperative, good insight and good judgment Comments: Very nice patient very good historian considering the amount of pain he is in H&P: Result Impressions 1. Sudden onset of back pain progressing to a level of 10 out of 10, 2. Long-term cancer that has significantly decreased white blood count and platelet count Imaging and Cardiology CT scan - pelvis: Additional comments: No significant abnormal findings except for degenerative disc disease and hip arthritis Assessment and Plan *Assessment and plan (1) Back pain: Status: Acute Category: Medical Code(s): M54.9 - Dorsalgia, unspecified (2) MDS (myelodysplastic syndrome): Status: Acute Category: Medical Code(s): D46.9 - Myelodysplastic syndrome, unspecified (3) Leukopenia: Status: Acute Qualifiers: Leukopenia type: unspecified Qualified Code(s): D72.819 - Decreased white blood cell count, unspecified Category: Medical Code(s): D72.819 - Decreased white blood cell count, unspecified (4) Myelodysplastic syndrome: Status: Acute Category: Medical Code(s): D46.9 - Myelodysplastic syndrome, unspecified Plan 1. Sudden onset of back pain unable to ambulate or move without severe pain. Unsure if this pain is related to his long-term cancer., CT scans did not show any type of trauma only degenerative disc disease possible some nerve impingement, noting arthritis in both the SI joint and that the right hip has significant narrowing compared to the left. Have found that morphine for every 2 hours have been adequate he normally last about 2-1/2 to 3 hours but the pain comes back.. His home narcotics were having no effect. Will continue to watch for any nausea. Considering steroid IV, in case this is simply musculoskeletal pain not related to his cancer. Will pass this on to daytime provider to run by Dr. Whitt. To make sure that this would not interfere with any of his cancer treatment since the cancer seems to be progressing with a significant decrease in white count and platelet. 2. MDS, will have daytime provider call Dr. Whitt to update him on the patient's condition and increased back pain., And to consider trying steroids for pain control if not contraindicated to oncology, 3. Case management, have them to review the case depending on how the patient progresses after PT OT evaluation question whether or not comfort care would become a possibility versus rehab and long-term care facility 4. Have talked with the patient and his he states he does have a living well, but they have decided that to be a DO NOT RESUSCITATE at this time. I have explained to them that would have included CPR and being placed on a ventilator as needed. Patient says he would not want. 5. After arriving to the floor the patient changed his mind about DNR and wanted to be DNI. This has been changed
[2024-06-15] MEDS: LACTATED RINGERS 1000ML 1,000 ML 50 ML IV (22:18)
[2024-06-15] MEDS: OXYCODONE 7.5MG W/APAP 325MG TABLET 1 EACH PO (22:35)
--- NOTE | 2024-06-15 23:09 | PC.NURSE ---
Patient's home medication reconciliation was completed during admission. Patient's home medications were reviewed entirely, alongside with and patient at bedside with Yu DIMAS as a second witness. Patient has oxycodone/acetaminophen 7.5mg/325mg (168 pills counted) locked inside the [facility], along with his other home medications.
--- NOTE | 2024-06-16 | MR_ITS ---
FINAL REPORT CLINICAL HISTORY: mid severe back pain COMPARISON: None FINDINGS: Multiplanar MR imaging of the thoracic spine was performed without contrast. There is motion artifact on many of the images decreasing sensitivity of this exam. On the sagittal T2-weighted images, disc degeneration is seen throughout. There is no evidence of fracture. The vertebral alignment is normal. The thoracic spinal cord has an unremarkable appearance without evidence of mass, edema or syrinx. There is no evidence of significant canal stenosis or cord compression. On the axial images, disc bulges are seen at multiple levels. No focal soft disc protrusion is identified. There is no evidence of significant canal stenosis or cord compression. No paraspinous soft tissue abnormality is identified. IMPRESSION: Multilevel mild degenerative disc disease and spondylosis. No focal soft disc protrusion or significant central canal stenosis. Reviewed, Interpreted and Dictated by Antoni Thomas III, MD Transcribed by Fern Flores Authenticated and [facility]
--- NOTE | 2024-06-16 | MR_ITS ---
FINAL REPORT TECHNIQUE: Multiplanar MR imaging of the lumbar spine with intravenous contrast CLINICAL HISTORY: RO ACUTE CORD SYNDROME COMPARISON: None FINDINGS: MRI LUMBAR SPINE: Multiplanar images of the lumbar spine were obtained, and are somewhat degraded by motion artifact, which limits overall image quality. There is degenerative disc disease present throughout the lumbar spine. The conus is at the L1 level and is unremarkable in appearance. There are endplate degenerative changes present at multiple levels. There is mild retrolisthesis of L2 on L3. Several Schmorl's nodes are identified. L1-2: An annular bulge is present without significant canal stenosis or neural foraminal narrowing. L2-3: An annular bulge is present with facet arthropathy and osteophytes. There is mild bilateral neural foraminal narrowing. L3-4: An annular bulge is present with mild bilateral neural foraminal narrowing. L4-5: An annular bulge is present with facet arthropathy and osteophytes. There is moderate bilateral neural foraminal narrowing. L5-S1: An annular bulge is present with facet arthropathy and osteophytes. There is mild right neural foraminal narrowing. IMPRESSION: Multilevel lumbar degenerative change is noted, with mild to moderate neural foraminal narrowing but no evidence of canal stenosis. The tip of the conus is at the L1 level, and the portions of the lower thoracic cord visualized on this exam are unremarkable. Reviewed, Interpreted and Dictated by Antoni Thomas III, MD Transcribed by Arlette Hager Authenticated and [facility]
[2024-06-16] MEDS: MORPHINE 2MG/ML SYRINGE 4 MG IV ×3 (03:30→06:52)
[2024-06-16 04:00] VITALS: BP 118/52; PULSE 77; RESP 16; TEMP 36.5; O2SAT 92; BMI 32.1
--- NOTE | 2024-06-16 05:22 | PC.NURSE ---
Mr Marti presented to the ED last night on account of his lower back pain. Patient has not been able to ambulate or perform the majority of his self care abilities at home without excruciating pain. Patient has a history of myelodysplastic syndrome, bone marrow cancer, BPH, compression fractures, hypertension, BPH (bladder scanned in the ER as of 06/15/24), and degenerative joint disease. He is alert and oriented x4 with mild short-term memory loss noticed. He is also slightly hard of hearing. Upon auscultation, his lungs were clear and his bowel sounds were active. Patient's vital signs have remained stable throughout the shift and tolerates room air. Medication reconciliation was completed this shift and home medications are locked in the [facility]; one narcotic is present (see prior note). An incentive spirometer is at bedside; he was educated about how to use it and its significance. Patient returned understanding. Male purewick is in place and functioning; thus far, no urine output was noted. Patient has complained of consistent back pain this shift that increases severely with movement. Patient has been medicated with both scheduled Percocet 7.5 mg and PRN morphine 4 mg per DEC, spaced out accordingly. Patient has LR infusing at 50mL/hr. Patient is on neutropenic precautions due to low WBCs (1.2), low neutrophils (0.4), and he also has low platelets (25). Patient is currently resting with his eyes closed, respirations are even and unlabored, and he is in no apparent distress. Patient has laid flat throughout the night. He has not had any further complaints thus far. Call light within reach. Neutropenic precautions sign on door.
--- NOTE | 2024-06-16 06:07 | PC.NURSE ---
Patient voided a total of 300 mL of urine via purewick at this time. Urine was noted to be dark naveed and clear.
[2024-06-16 06:15] LABS: Basophils % 0.3 % (0.1-2.0); Eosinophils # 0.1 K/mm3 (0.0-0.4); Eosinophils % 4.3 % (0.1-12.0); Hematocrit 26.8 % (42.0-52.0); Hemoglobin 8.6 g/dL (14.1-18.0); Lymphocytes # 0.6 K/mm3 (0.7-4.5); Lymphocytes % 50.8 % (10-50); Mean Corpuscular Hemoglobin 34.6 pg (27.0-31.2); Mean Corpuscular Volume 108.4 fl (80-94); Mean Platelet Volume 10.2 fl (7.4-10.4); Monocytes # 0.1 K/mm3 (0.1-1.0); Monocytes % 7.3 % (1.7-9.3); Neutrophils # 0.5 K/mm3 (1.8-7.8); Neutrophils % 37.3 % (37.0-80.0); Red Blood Count 2.48 M/mm3 (4.60-6.20); Red Cell Distribution Width 18.2 % (11.5-17.5); White Blood Count 1.2 K/mm3 (4.8-10.8)
[2024-06-16 06:24] LABS: Platelet Count 16 K/mm3 (142-424)
--- NOTE | 2024-06-16 06:24 | PC.NURSE ---
Lab called at this time to report a critical platelet value of 16. Loni CUNNINGHAM was notified.
[2024-06-16 06:26] LABS: MANUAL DIFFERENTIAL MANUAL DIFFERENTIAL (MANUAL DIFF)
[2024-06-16 06:35] LABS: Alanine Aminotransferase 73 U/L (12-78); Albumin Level 3.1 g/dl (3.5-5.0); Alkaline Phosphatase 134 U/L (38-126); Anion Gap 5.6 mEq/L (5-15); Aspartate Amino Transferase 70 U/L (17-59); Bilirubin,Total 2.5 mg/dl (0.2-1.3); Blood Urea Nitrogen 23 mg/dl (9-20); Calcium 8.4 mg/dl (8.4-10.2); Carbon Dioxide 27 mmol/L (22.0-30.0); Chloride 108 mmol/L (98-107); Creatinine Clearance Estimated 70 mL/min (50-200); Estimated Glomerular Filt Rate 53 ml/min (>60); GFR (African American) 64 ML/MIN (>60); Globulin 3.2 g/dL (1.3-3.2); Glucose 121 mg/dl (74-100); Potassium 4.6 mmoL/L (3.5-5.1); Sodium 136 mmol/L (136-145); Total Protein,Serum 6.3 g/dl (6.3-8.2)
--- NOTE | 2024-06-16 06:46 | PC.NURSE ---
Entered patient's room at around 06:40 to evaluate pain; patient reported that the morphine did not really help him and that his pain was starting to get worse. Loni DENTAL HYGIENE PROFESSOR was paged at this time; new order for an extra one time dose of morphine 4 mg IV was ordered.
--- NOTE | 2024-06-16 06:54 | EXP.EVENT.NO ---
Nursing is calling from the floor that the patient's pain has increased he had recently received 4 mg of morphine with no effect, went in to see him he saying that he is hurting his abdomen feels a little more distended a little more rigid than it did when he came in., Platelet count is extremely low question whether or not he has a subarachnoid bleed and bleeding into the spine causing an increased in pain. plan to see if the extra 4 mg of morphine will have any effect on comfort, and will increase pain medicine as needed, have examined labs and a significant decrease in not only the white count but the platelets over the last several months. Will give oncoming physician update as soon as he arrives.
[2024-06-16 07:40] VITALS: BP 151/59; PULSE 96; RESP 20; TEMP 37.1; O2SAT 90
[2024-06-16 08:00] LABS: Lymphocytes % 56 % (10-50); Macrocytosis 2+; Monocytes % 4 % (2-9); Neutrophils % 40 % (42-76); Platelet Estimate Marked Decrease; Total Cells Counted 50
[2024-06-16] MEDS: PANTOPRAZOLE 40MG TABLET 40 MG PO (08:29)
[2024-06-16] MEDS: CITALOPRAM 40MG TABLET 40 MG PO (08:29)
[2024-06-16] MEDS: LORATADINE 10MG TABLET 10 MG PO (08:29)
--- NOTE | 2024-06-16 09:01 | HMH.PHAINT1 ---
Pharmacy Intervention Comments: MEDICATION RECONCILIATION COMPLETED ON PATIENT USING EXTERNAL FILL HISTORY FROM PHARMACY AND PATIENT'S OWN RX BOTTLES. -THANH GUERRREO, JESÚSD
[2024-06-16] MEDS: MORPHINE 4MG/ML SYRINGE 4 MG IV ×3 (09:19→19:27)
--- NOTE | 2024-06-16 09:42 | HMH.PTEV ---
Physical Therapy Evaluation Rehab PT IP Evaluation Start: 06/15/24 20:52 Freq: ONCE Status: Active Protocol: Document 06/16/24 09:30 CRISTOBAL (Rec: 06/16/24 09:37 CRISTOBAL [id number]) Subjective/History History History Patient is a 79 y/o male who was admitted to [facility] for a myelodysplastic syndrome with extreme low WBCs and platelet count. Subjective Subjective Pt reports he has been in a lot of pain recently but his pain is currently under control. Pt reports he lives with his ex- who helps him as needed. Pt was IND with use of cane prior to admission . Pt not driving prior. New diagnosis of cancer in past 12 No months? Rehab PT IP Eval Objective Appearance Patient Behavior Appropriate,Cooperative Patient Orientation Person,Place Difficulty following instructions none Speech Pattern Clear Ambulation Patient Able to Ambulate No Balance Ability to Arise Unable Transfers Bed Transfer Ability Moderate x 2 (50% assist) Rehab PT IP prob,goals,plan Problems Date of Evaluation: 06/16/24 PT IP Problems Bed Mobility,Transfers,Gait, Balance,Self care,Safety Rehab Potential Rehab Potential Good Equipment Needs Assistive Devices Rolling / Wheeled Walker, Wheelchair Plan PT Intervention Plan Bed Mobility,Transfers,Gait, Balance,Self care,Safety, Therapeutic Exercise Other Intervention Plan 1-2 times PT Plan Frequency Daily Duration LOS Discharge Goals Bed Transfer Ability Minimal x 1 (25% assist) Discharge Plan PT Discharge Plan Initial physical therapy evaluation performed. Patient presents below baseline at this time in functional mobility, transfers, and strength. Pt not safe to return home at this time d/t current level of functional mobility. Pt was unable to complete a supine> sit despite Max A d/t pain. Pt able to complete roll to the right with Mod A x 2. PT recommending short-term rehabilitation stay upon d/c from [facility]. Pt would benefit from skilled PT while at [facility] to prevent further functional decline and maximize safety with mobility. Eval Complexity Eval Charge Codes 86411 - High Complexity PHYSICIAN CERTIFICATION: I certify the specified therapy services for Glenn Marti are required, authorized, and reviewed every 30 days.
--- NOTE | 2024-06-16 10:00 | HMH.OTEV ---
OT Inpatient Evaluation Rehab OT IP Evaluation Start: 06/15/24 20:52 Freq: ONCE Status: Active Protocol: Document 06/16/24 09:55 BROOK (Rec: [facility]/16/24 10:[facility] [id number] Rehab OT IP Assessment Subjective History Pt oriented x 3 on arrival. Pt agreeable to engage in therapy evaluation. Pt admitted on 06/15/24 due to back pain. History and physical report: Patient has a myelodysplastic syndrome with extreme low WBCs and platelet. His oncologist is Dr. Whitt. The back pain began kind of suddenly on Friday it was not controlled by his present pain medicines at the house. Progressively worsened until any movement is severe, he lives at home with his and she is unable to care for him or move him or get him out of bed and his present condition. He reports no other symptoms Has a history of a compression fracture of his spine 20 years ago., And noted that before this event and his cancer he just considered his back normal gave him some pain but never any significant pain that would keep him from movement. Subjective I am in a lot of pain. Pt reports prior to being in the hospital, pt lived at home with his . Pt claims normally he is independent with dressing and feeding, but does require some assistance while bathing for increased safety. Pt is dependent upon for completion of all IADLs. Pt uses cane during functional transfers. Pt has not driven since January. Objective Patient Orientation Person,Place,Birthday Right Upper Extremity Gross ROM Min Limitation <25% Left Upper Extremity Gross ROM Min Limitation <25% Shoulder ROM Limitations Muscle Weakness Elbow ROM Limitations Muscle Weakness Wrist Limitations of Range of Motion Muscle Weakness Bed Mobility bed mobility-scooting,bed mobility - rolling Assist Level Moderate x 2 (50% assist) Rehab OT IP prob,goals,plan Problems Date of Evaluation: 06/16/24 OT IP Problems Bed Mobility,Transfers,Balance ,Self care,Safety Rehab Potential Rehab Potential Good Equipment Needs Assistive Devices Rolling / Wheeled Walker Plan OT intervention Plan Bed Mobility,Transfers,Balance ,Self care,Safety,Therapeutic Exercise OT Plan Frequency Daily Duration LOS Discharge Goals Bed Mobility Ability Assistance x1 Sit to Stand Chair Transfer Ability Moderate x 1 (50% assist) Chair Transfer Ability Moderate x 1 (50% assist) Chair Transfer Technique Sit to/from Ambulatory Chair Transfer Assistive Devices Rolling Walker Feeding Ability Assist with Tray Set Up Lower Body Dressing Ability Moderate Assistance Upper Body Dressing Ability Minimal Assistance Bathing Ability Moderate Assistance Performing Toilet Hygiene Ability Moderate Assistance Overall Commode/Toilet Transfer Ability Moderate Assistance Commode/Toilet Transfer Technique Sit to/from Ambulatory Commode/Toilet Transfer Assistive Grab Bars Devices Oral Care Assist Contact Guard Decrease in Endurance Yes Discharge Plan OT Discharge Plan Pt will continue to be seen for OT services while at [facility]. Pt would benefit most from short term rehab at SNF following hospital stay. Pt demonstrates with a significant decline in functional ability and ADL independence. Pt unable to even sit up to eob due to severity with pain. Continued skilled therapy is important in order for patient to improve strength, safety, endurance, ADL independence, and functional transfers to reach PLOF. Eval Complexity Eval Charge Codes 44321 - Moderate Complexity PHYSICIAN CERTIFICATION: I certify the specified therapy services for Glenn Marti are required, authorized, and reviewed every 30 days.
--- NOTE | 2024-06-16 10:09 | EXP.ACUTE.PN ---
Subjective *Date: 06/16/24 *Time: 10:22 Interval history: Patient complaining about back pain starting Friday, which is excruciatingly uncomfortable. Describes back pain as 10 out of 10, sharp, focused L4/L5, worse with moving legs, and better with lying still. Denies saddle anesthesia, loss of bowel or bladder dysfunction. States he has excellent rectal tone. States that he has suffered from lower extremity weakness over past 5 years. Also states that back discomfort acutely worsened starting Friday. Denies fevers, chills overnight. Denies any recent accidents, injuries, or other known injuries to back or other body parts. Some abdominal tightness/distention also noted today. Medical Exam Vital signs and Labs for Last 24 Hours: Vital Signs Temp Pulse Pulse Resp BP BP Pulse Ox 06/16/24 07:52 06/16/24 07:40 98.7 F 96 H 20 151/59 H 90 L 06/16/24 07:00 06/16/24 05:00 06/16/24 04:00 97.7 F 77 16 118/52 L 92 L 06/16/24 03:00 06/16/24 01:00 06/15/24 23:00 06/15/24 21:12 98.3 F 74 17 124/53 L 95 06/15/24 21:00 06/15/24 20:52 74 17 95 06/15/24 20:50 98.3 F 74 17 124/53 L 06/15/24 20:30 130/57 L 06/15/24 20:00 82 137/55 L 91 L 06/15/24 19:23 75 141/66 H 95 06/15/24 18:22 98.5 F 83 16 130/63 95 O2 Del Method 06/16/24 07:52 Room Air 06/16/24 07:40 Room Air 06/16/24 07:00 Room Air 06/16/24 05:00 Room Air 06/16/24 04:00 Room Air 06/16/24 03:00 Room Air 06/16/24 01:00 Room Air 06/15/24 23:00 Room Air 06/15/24 21:12 Room Air 06/15/24 21:00 Room Air 06/15/24 20:52 Room Air 06/15/24 20:50 Room Air 06/15/24 20:30 06/15/24 20:00 06/15/24 19:23 06/15/24 18:22 Room Air Intake and Output 06/15/24 06/16/24 06/16/24 23:59 07:59 15:59 Intake Total 207 / 207 Output Total 300 / 300 Balance - / Intake: Intake, Oral Amount 120 / 120 Intake, Total IV Amount 87 / 87 Lactated Ringers 1000ML 1,000 87 / 87 ml @ 50 mls/hr IV .Q20H [facility] Rx# :[id number] Output: Output, Urine Amount 300 / 300 Other: Number of Unmeasured Voids 0 Weight 107.637 kg 107.637 kg Patient Weight 06/16/24 23:59 Weight 107.637 kg Laboratory Results - last 24 hr 06/15/24 18:30: WBC 1.2 L*, RBC 2.56 L, Hgb 8.9 L, Hct 27.1 L, MCV 105.8 H, MCH 34.7 H, MCHC 32.8, RDW 17.8 H, Plt Count 25 L*, MPV 9.4, Neut % (Auto) 34.5 L, Lymph % (Auto) 57.5 H, [place] % (Auto) 3.1, Eos % (Auto) 3.5, Baso % (Auto) 1.5, Neut # (Auto) 0.4 L*, Lymph # (Auto) 0.7, [place] # (Auto) 0.0 L, Eos # (Auto) 0.0, Baso # (Auto) 0.0, Total Counted 100, Neutrophils % (Manual) 33 L, Lymphocytes % (Manual) 61 H, Monocytes % (Manual) 4, Eosinophils % (Manual) 2, Platelet Estimate Moderate d, Poikilocytosis 1+, Anisocytosis 1+, Microcytosis 1+, Macrocytosis 1+, Tear Drop Cells 1+, Ovalocytes 1+, ESR > 140 H, Sodium 135 L, Potassium 4.2, Chloride 107, Carbon Dioxide 25, Anion Gap 7.2, BUN 24 H, Creatinine 1.40 H, Estimated Creat Clear 67, Estimated GFR 49 L, Est GFR ( Amer) 59, Glucose 117 H, Calcium 8.2 L, Total Bilirubin 1.4 H, AST 53, ALT 52, Alkaline Phosphatase 130 H, C-Reactive Protein 80.1 H, Total Protein 6.4, Albumin 3.4 L, Globulin 3.0, Albumin/Globulin Ratio 1.1 06/15/24 20:45: Urine Color Yellow, Urine Appearance Clear, Urine pH 6.0, Ur Specific Raymond >= 1.030, Urine Protein Negative, Urine Glucose (UA) Negative, Urine Ketones Negative, Urine Blood Negative, Urine Nitrate Negative, Urine Bilirubin 1+ A, Urine Urobilinogen 4.0, Ur Leukocyte Esterase Negative 06/16/24 05:55: WBC 1.2 L*, RBC 2.48 L, Hgb 8.6 L, Hct 26.8 L, MCV 108.4 H, MCH 34.6 H, MCHC 32.0, RDW 18.2 H, Plt Count 16 L* D, MPV 10.2, Neut % (Auto) 37.3, Lymph % (Auto) 50.8 H, [place] % (Auto) 7.3, Eos % (Auto) 4.3, Baso % (Auto) 0.3, Neut # (Auto) 0.5 L*, Lymph # (Auto) 0.6 L, [place] # (Auto) 0.1, Eos # (Auto) 0.1, Baso # (Auto) 0.0, Total Counted 50, Neutrophils % (Manual) 40 L, Lymphocytes % (Manual) 56 H, Monocytes % (Manual) 4, Platelet Estimate Marked decrease, Macrocytosis 2+, Sodium 136, Potassium 4.6, Chloride 108 H, Carbon Dioxide 27, Anion Gap 5.6, BUN 23 H, Creatinine 1.30 H, Estimated Creat Clear 70, Estimated GFR 53 L, Est GFR ( Amer) 64, Glucose 121 H, Calcium 8.4, Magnesium 2.0, Total Bilirubin 2.5 H, AST 70 H D, ALT 73 D, Alkaline Phosphatase 134 H, Total Protein 6.3, Albumin 3.1 L, Globulin 3.2, Albumin/Globulin Ratio 1.0 L I & O for Labs for Last 24 Hours: Intake & Output 06/13/24 06/14/24 06/15/24 06/16/24 23:59 23:59 23:59 23:59 Intake Total 207 / 207 Output Total 300 / 300 Balance -93 / -93 Weight 107.637 kg 107.637 kg Constitutional: Present no acute distress Head: Present normocephalic ENT: Present normal exam Neck: Present normal inspection and full ROM Respiratory: Present CTA bilaterally and normal respiratory effort Cardiac: Present Reg Rate and Rhythm, Regular Rate and Regular Rhythm GI: Present soft, distention (firm to touch) and normal bowel sounds Rectal (male): Present deferred Extremities: Present normal inspection and full ROM Skin: Present intact and dry Assessment and Plan *Assessment and plan (1) Ex-smoker: Status: Acute Category: Social Hx Code(s): Z87.891 - Personal history of nicotine dependence (2) Acid reflux: Status: Acute Category: Medical Code(s): K21.9 - Gastro-esophageal reflux disease without esophagitis (3) Back pain: Status: Acute Category: Medical Code(s): M54.9 - Dorsalgia, unspecified (4) Acute exacerbation of chronic low back pain: Status: Acute Category: Medical Code(s): M54.5 - Low back pain; G89.29 - Other chronic pain (5) MDS (myelodysplastic syndrome): Status: Acute Category: Medical Code(s): D46.9 - Myelodysplastic syndrome, unspecified Plan 79-year-old with past medical history of GERD, MDS (sees Dr. Whitt oncologist), atrial fibrillation, chronic back pain. Patient presents with worsening lower back discomfort starting on 06/13/2024. Denies saddle anesthesia, progressive lower extremity weakness, bowel or bladder incontinence. Has excellent rectal tone. Problems are as follows: Acute on chronic back pain likely muscle spasm: -Patient started on Mobic, Flexeril overnight. Will give patient IV Valium x 1. Hopefully patient suffering from really bad muscle spasm. MRI thoracic, lumbar, sacral ordered to rule out cauda equina. Patient denies any symptoms of cauda equina during interview with Dr. Ambrosio 06/16/24 in AM. Abdominal distention: ? Order CT abdomen/pelvis looking for signs of ascites or retroperitoneal bleed. GERD: Continue home management MDS: Continue home management Atrial fibrillation: Continue home management PPx: SCDs CODE STATUS: Full FEN: Cardiac/diabetic diet Disposition: ? Depending on results of MRI/CT abdomen/pelvis testing. Patient will likely remain in house for an additional 24 to 48 hours.
--- NOTE | 2024-06-16 10:26 | CT_ITS ---
FINAL REPORT CLINICAL HISTORY: Abdominal distention, eval hematoma/ascites COMPARISON: 01/15/2024 FINDINGS: Axial CT images of the abdomen and pelvis were obtained without intravenous contrast. Coronal reformatted images were also obtained.This study was performed with techniques to keep radiation doses as low as reasonably achievable (ALARA). Individualized dose reduction techniques using automated exposure control or adjustment of mA and/or kV according to the patient's size were employed. Abdomen: Mild scarring is noted at the lung bases. There is a less than 3 mm nonobstructing right renal stone. The liver, spleen and pancreas have an unremarkable, unenhanced appearance. No mass or adenopathy is seen. The stomach is distended with air and fluid. There are multiple air-filled bowel loops in a nonspecific pattern. There is no evidence of bowel obstruction. Moderate vascular calcifications are noted. Pelvis: Images of the pelvis reveal no evidence of ureteral dilation or ureteral stone. The appendix is normal. There are several sigmoid diverticula without evidence of diverticulitis. Radiologist there is a small left inguinal hernia containing fat. There is no free fluid. No evidence of hematoma. IMPRESSION: Less than 3 mm nonobstructing right renal stone. Distended stomach with air and fluid and multiple air-filled bowel loops in a nonspecific pattern. No evidence of bowel obstruction. Diverticulosis without evidence of diverticulitis. Reviewed, Interpreted and Dictated by Antoni Thomas III, MD Transcribed by Fern Flores Authenticated and [facility]
[2024-06-16] MEDS: diazePAM 10MG/2ML SYRINGE 2.5 MG IV (10:39)
[2024-06-16 11:06] VITALS: TEMP 38.5
--- NOTE | 2024-06-16 12:22 | EXP.EVENT.NO ---
During reevaluation of patient, patient noted to suffer from projectile vomiting and developed temperature 101.3 ?F today. Concerned about possible GI infection/obstruction. Patient made n.p.o. with CT abdomen/pelvis ordered. Infectious workup ordered including blood cultures, nasopharyngeal respiratory panel, nasopharyngeal MRSA, procalcitonin, CRP, urine culture, UA, lactic acid. Patient empirically started on IV cefepime by Dr. Ambrosio for empirical bacterial coverage in immunocompromised individual. Also spoke with patient's oncologist Dr. Salcedo today, who agrees with CT abdomen/pelvis and infection workup. Continue to follow patient's case closely throughout hospitalization. MRI thoracic, lumbar, sacral regions pending.
[2024-06-16 12:56] LABS: C-Reactive Protein 127.1 mg/L (0-4); Procalcitonin 0.186 ng/mL (0.0-2.0)
[2024-06-16] MEDS: OXYCODONE 7.5MG W/APAP 325MG TABLET 1 EACH PO ×2 (13:19→21:26)
[2024-06-16] MEDS: CYCLOBENZAPRINE 10MG TABLET 10 MG PO ×2 (13:19→20:09)
[2024-06-16] MEDS: CEFEPIME HCL 1 GM in 0.9 % SODIUM CHLORIDE 50 ML IV (13:19)
[2024-06-16] MEDS: ACETAMINOPHEN 325MG TAB 650 MG PO (13:20)
--- NOTE | 2024-06-16 13:22 | SW/DCPLANNER ---
Addendum entered by Amber Grier 06/18/24 14:17: Andriy w/ [facility] stated that patient has been accepted for their services. Addendum entered by Amber Grier 06/18/24 12:28: Per PT patient is safe to return home w/ home health services at time of discharge. Patient and S.O. are agreeable to home health services and do not have a preference. Patient information/order will be faxed to [facility] today w/ possible discharge over the weekend. Patient has all appropriate DME at home. Addendum entered by Maritza Murphy RN 06/17/24 14:21: Spoke with patient this morning. He is agreeable to SNF placement and signed the Patient Choice form for [facility]. Clinical faxed to [facility] this morning. Original Note: I attempted to speak w/ patient and his significant other regarding plans once medically stable for discharge. PT/OT evaluated patient and recommended SNF level of care once medically stable for discharge. Patient voiced that he was in severe pain and asked that I come back at a later date. I will follow up w/ patient tomorrow morning.
[2024-06-16 14:04] LABS: Hemoglobin 8.9 g/dL (14.1-18.0)
[2024-06-16 14:16] LABS: Bordetella Pertussis Not Detected (NotDetected); Chlamydophila Pneumoniae, PCR Not Detected (NotDetected); Coronavirus 19, PCR Not Detected (NotDetected); Coronavirus 229E Not Detected (NotDetected); Coronavirus NL63 Not Detected (NotDetected); Coronavirus OC43 Not Detected (NotDetected); Coronovirus HKU1,PCR Not Detected (NotDetected); Human Metapneumovirus Not Detected (NotDetected); Influenza A, PCR Not Detected (NotDetected); Influenza AH1, 2009 Not Detected (NotDetected); Influenza AH1, PCR Not Detected (NotDetected); Influenza AH3,PCR Not Detected (NotDetected); Influenza B, PCR Not Detected (NotDetected); Mycoplasma Pneumoniae, PCR Not Detected (NotDetected); Parainfluenza 1, PCR Not Detected (NotDetected); Parainfluenza 2, PCR Not Detected (NotDetected); Parainfluenza 3, PCR Not Detected (NotDetected); Parainfluenza 4, PCR Not Detected (NotDetected); Respiratory Syncytial Virus Not Detected (NotDetected); Rhinovirus/Enterovirus Not Detected (NotDetected)
[2024-06-16] MEDS: POLYETHYLENE GLYCOL 3350 17 GM PACKET PO (14:18)
[2024-06-16] MEDS: SENNOSIDES 8.6MG/DOCUSATE 50MG TABLET 1 TAB PO ×2 (14:19→20:08)
[2024-06-16] MEDS: LACTULOSE 20GM/30ML UDC 20 GM PO (14:19)
[2024-06-16] MEDS: ONDANSETRON 4MG/2ML VIAL 4 MG IV (15:25)
[2024-06-16 16:00] VITALS: BP 130/66; PULSE 89; RESP 20; TEMP 36.8; O2SAT 95
--- NOTE | 2024-06-16 17:28 | PC.NURSE ---
Addendum entered by Ira Chaudhary RN 06/16/24 18:19: Pt has had about 300ml of dark brown urine this shift. Original Note: Pt alert and oriented x4. Pt has c/o back pain most of shift and pain medication only temporarily provides relief. Pt has only been able to tolerate lying flat in bed. Pt abdomen is round, distended,and tender he has been burping and passing gas. Pt had one episode of vomiting this morning but he stated he thinks the morphine is what made him vomit. Pt voiding per purewick and using bedpan, but has had no BM this shift. Pt spiked fever of 101.3 and was medicated with tylenol which brought it down to 98.2. at bedside.
[2024-06-16 20:00] VITALS: BP 134/103; PULSE 79; RESP 16; TEMP 36.2; O2SAT 91
[2024-06-16] MEDS: TAMSULOSIN 0.4MG CAPSULE 0.8 MG PO (20:09)
[2024-06-16 23:55] VITALS: BP 138/67; PULSE 74; RESP 16; TEMP 36.7; O2SAT 90
[2024-06-17] VITALS (12 sets, daily range): BP systolic 119–166; BP diastolic 57–81; PULSE 76–91; RESP 16–21; TEMP 36.6–37.5; O2SAT 83–95; BMI 31.7
[2024-06-17] MEDS: CEFEPIME HCL 1 GM in 0.9 % SODIUM CHLORIDE 50 ML IV ×2 (00:46→11:59)
[2024-06-17] MEDS: MORPHINE 4MG/ML SYRINGE 4 MG IV ×5 (01:42→20:33)
--- NOTE | 2024-06-17 05:44 | PC.NURSE ---
Pt is A&OX4 and has tolerated room air. Lung sounds clear and bowel sounds active in all quadrants. Pt has complained of lower back pain multiple times this shift. He is being treated per mar. He states the pain is relieved for a couple hours before returning. Abdomen has been distended. He is passing gas but has not had a BM. He has remained afebrile and has not complained of any nausea. He has remained in bed the entire shift in a flat position. Purewick has remained in place with about 1100 ml out this shift. No complaints at this time , call light within reach.
[2024-06-17 06:49] LABS: C-Reactive Protein 141.4 mg/L (0-4)
[2024-06-17] MEDS: OXYCODONE 7.5MG W/APAP 325MG TABLET 1 EACH PO ×3 (06:49→23:39)
[2024-06-17 07:00] LABS: Procalcitonin 0.423 ng/mL (0.0-2.0)
[2024-06-17] MEDS: POLYETHYLENE GLYCOL 3350 17 GM PACKET PO (09:03)
[2024-06-17] MEDS: SENNOSIDES 8.6MG/DOCUSATE 50MG TABLET 1 TAB PO ×2 (09:03→20:32)
[2024-06-17] MEDS: CYCLOBENZAPRINE 10MG TABLET 10 MG PO ×2 (09:04→11:59)
[2024-06-17] MEDS: CITALOPRAM 40MG TABLET 40 MG PO (09:04)
[2024-06-17] MEDS: LORATADINE 10MG TABLET 10 MG PO (09:04)
[2024-06-17] MEDS: MELOXICAM 15 MG 15 EACH PO (09:10)
[2024-06-17] MEDS: ACETAMINOPHEN 325MG TAB 650 MG PO (10:35)
--- NOTE | 2024-06-17 11:14 | XR_ITS ---
FINAL REPORT CLINICAL HISTORY: distention of abdomen COMPARISON: None FINDINGS: SINGLE VIEW ABDOMEN A single view of the abdomen was obtained. There is a nonobstructive bowel gas pattern. A moderate amount of stool is present in the colon. There are no abnormally dilated loops of small bowel. No abnormal calcifications are identified. Degenerative changes present in the lumbar spine. IMPRESSION: Nonobstructive bowel gas pattern with a moderate stool burden. Reviewed, Interpreted and Dictated by Antoni Thomas III, MD Transcribed by Arlette Hager Authenticated and [facility]
[2024-06-17] MEDS: METHYLPREDNISOLONE SOD SUCC 40MG VIAL 40 MG IV ×2 (11:59→18:20)
[2024-06-17] MEDS: LACTULOSE 20GM/30ML UDC 20 GM PO (11:59)
[2024-06-17] MEDS: LACTATED RINGERS 1000ML 1,000 ML 50 ML IV (13:23)
--- NOTE | 2024-06-17 15:56 | EXP.ACUTE.PN ---
Subjective *Date: 06/17/24 *Time: 15:59 Interval history: Patient had numerous issues overnight with back pain. Patient still has distended abdomen, soft and slightly less distended versus yesterday. Reports adequate flatus/burping. Denies fever/chills overnight. Medical Exam Vital signs and Labs for Last 24 Hours: Vital Signs Temp Pulse Pulse Resp BP BP Pulse Ox 06/17/24 15:55 98.5 F 86 18 164/80 H 95 06/17/24 15:50 98.5 F 82 16 166/77 H 93 L 06/17/24 15:45 99.5 F 83 18 156/72 H 83 L 06/17/24 15:40 99.3 F 82 16 161/74 H 93 L 06/17/24 15:36 98.3 F 82 16 158/79 H 93 L 06/17/24 13:00 06/17/24 12:00 98 F 83 18 132/71 95 06/17/24 11:00 06/17/24 09:00 06/17/24 08:00 06/17/24 07:36 98.9 F 79 21 129/57 L 94 L 06/17/24 06:51 06/17/24 05:00 06/17/24 04:00 98.1 F 76 16 119/60 90 L 06/17/24 03:00 06/17/24 01:00 06/16/24 23:55 98.1 F 74 16 138/67 90 L 06/16/24 23:00 06/16/24 21:00 06/16/24 20:00 06/16/24 20:00 97.2 F L 79 16 134/103 H 91 L 06/16/24 19:00 06/16/24 17:00 06/16/24 16:00 98.2 F 89 20 130/66 95 O2 Del Method 06/17/24 15:55 06/17/24 15:50 06/17/24 15:45 06/17/24 15:40 06/17/24 15:36 06/17/24 13:00 Room Air 06/17/24 12:00 06/17/24 11:00 Room Air 06/17/24 09:00 Room Air 06/17/24 08:00 Room Air 06/17/24 07:36 Room Air 06/17/24 06:51 Room Air 06/17/24 05:00 Room Air 06/17/24 04:00 Room Air 06/17/24 03:00 Room Air 06/17/24 01:00 Room Air 06/16/24 23:55 Room Air 06/16/24 23:00 Room Air 06/16/24 21:00 Room Air 06/16/24 20:00 Room Air 06/16/24 20:00 Room Air 06/16/24 19:00 Room Air 06/16/24 17:00 Room Air 06/16/24 16:00 Room Air Intake and Output 06/16/24 06/17/24 06/17/24 23:59 07:59 15:59 Intake Total 430 / 937 300 / 1180 880 / 1180 Output Total 900 / 1200 700 / 1700 1000 / 1700 Balance -470 / -263 -400 / -520 -120 / -520 Intake: Intake, Oral Amount 430 / 550 880 / 880 Intake, Total IV Amount 300 / 300 Lactated Ringers 1000ML 1,000 300 / 300 ml @ 50 mls/hr IV .Q20H COUNTS INCLUDE 234 BEDS AT [facility] Rx# :[id number] Intake (Blood Product) Amt 0 / 0 Pheresis Platelets Unit 0 / 0 [id number] Output: Output, Urine Amount 900 / 1200 700 / 1700 1000 / 1700 Other: Number of Unmeasured Voids 0 0 0 Weight 106.231 kg Patient Weight 06/17/24 23:59 Weight 106.231 kg Laboratory Results - last 24 hr 06/17/24 06:13: C-Reactive Protein 141.4 H, Procalcitonin 0.423, Blood Type Confirm O Positive 06/17/24 07:45: Blood Type O Positive I & O for Labs for Last 24 Hours: Intake & Output 06/14/24 06/15/24 06/16/24 06/17/24 23:59 23:59 23:59 23:59 Intake Total 637 / 937 1180 / 1180 Output Total 1200 / 1200 1700 / 1700 Balance -563 / -263 -520 / -520 Weight 107.637 kg 107.637 kg 106.231 kg Microbiology Reports for the Last 24 Hours: Microbiology 06/16/24 13:45 Blood Blood Culture - Preliminary NO GROWTH AFTER 24 HOURS 06/16/24 13:40 Blood Blood Culture - Preliminary NO GROWTH AFTER 24 HOURS Radiology Reports for the Last 24 Hours: 06/17/2024 KUB: Constipation noted per Dr. Ambrosio wet read. 06/16/24 CT abdomen/pelvis: IMPRESSION: Less than 3 mm nonobstructing right renal stone. Distended stomach with air and fluid and multiple air-filled bowel loops in a nonspecific pattern. No evidence of bowel obstruction. Diverticulosis without evidence of diverticulitis. Head: Present normocephalic ENT: Present normal oropharynx Neck: Present normal inspection Respiratory: Present patient mechanically ventilated Cardiac: Present Reg Rate and Rhythm GI: Present soft, distention and normal bowel sounds; Absent guarding, rebound or rigidity Rectal (male): Present deferred (male): Present deferred Extremities: Present normal inspection and full ROM Skin: Present intact Assessment and Plan *Assessment and plan (1) Back pain: Status: Acute Category: Medical Code(s): M54.9 - Dorsalgia, unspecified (2) Abdominal pain: Status: Acute Category: Medical Code(s): R10.9 - Unspecified abdominal pain (3) Febrile illness: Status: Acute Category: Medical Code(s): R50.9 - Fever, unspecified (4) MDS (myelodysplastic syndrome): Status: Acute Category: Medical Code(s): D46.9 - Myelodysplastic syndrome, unspecified (5) Constipation: Status: Acute Category: Medical Code(s): K59.00 - Constipation, unspecified Plan 79-year-old with past medical history of GERD, MDS (sees Dr. Whitt oncologist), atrial fibrillation, chronic back pain. Patient presents with worsening lower back discomfort starting on 06/13/2024. Denies saddle anesthesia, progressive lower extremity weakness, bowel or bladder incontinence. Has excellent rectal tone. Problems are as follows: Myelodysplastic syndrome patient with thrombocytopenia: ? 06/17 patient lives have been continuously dropping since hospitalization. Platelets now at 16 today. Will transfuse 1 unit pooled platelets. Febrile illness: ? Patient had fever 101F on 06/16/24. Currently on IV cefepime. No current source of infection. Worried patient may be suffering from urinary tract infection. Continue IV cefepime for now. Follow culture results. Acute on chronic back pain likely muscle spasm: ?06/17 patient still having back issues. Will place patient on Solu-Medrol scheduled, continue scheduled Flexeril, Mobic. As needed morphine also written for. ?06/16 MRI showed no signs of acute cord syndrome or cord equina. Continue Mobic and Flexeril scheduled. -06/15 patient started on Mobic, Flexeril overnight. Will give patient IV Valium x 1. Hopefully patient suffering from really bad muscle spasm. MRI thoracic, lumbar, sacral ordered to rule out cauda equina. Patient denies any symptoms of cauda equina during interview with Dr. Ambrosio 06/16/24 in AM. Abdominal distention secondary to constipation: ?06/17 patient appears constipated on KUB today and CT abdomen/pelvis yesterday. Has flatus and burping. Continue senna, Colace, MiraLAX. Patient given lactulose 20 g x 2 without effect over past 2 days. Will give patient 150 mL mag citrate x 1. ? 06/[address] abdomen/pelvis looking for signs of ascites or retroperitoneal bleed. Hypertension: Patient now showing signs of hypertension. Will adjust patient's antihypertensive medicines accordingly. GERD: Continue home management Atrial fibrillation: Continue home management PPx: SCDs CODE STATUS: Full FEN: Downgraded to liquids 06/17, tolerated full liquid diet 06/16 in a.m., so advance to cardiac/diabetic diet for dinner Disposition: ? Hopefully within next 48 hours, if patient's platelet, WBC, hemoglobin trends stabilize, and patient able to tolerate adequate nutrition without abdominal discomfort.
[2024-06-17] MEDS: MAGNESIUM CITRATE 10OZ BOTTLE 5 OZ PO ×2 (16:23→19:16)
[2024-06-17] MEDS: AMLODIPINE 10MG TABLET 10 MG PO (17:25)
--- NOTE | 2024-06-17 18:11 | PC.NURSE ---
Pt is A&OX4 and has tolerated room air with sats 903-96%. Lung sounds clear and bowel sounds active in all quadrants. Pt has complained of lower back pain multiple times this shift and treated per mar. Abdomen remains firm and distended. He is passing gas but has not had a BM. MD wanting to avoid NG if at all possible. He has remained afebrile and has not complained of any nausea. lactulose and mag citrate given to encourage bowel movement with no result. pt received a unit of platelets and tolerated well. Purewick has remained in place this shift. urine output adequate- see I&O. has been at bedside majority of the day. pt verbalizes interest in being able to walk soon. No complaints at this time , call light within reach.
[2024-06-17 18:24] LABS: Basophils % 0.8 % (0.1-2.0); Eosinophils % 0.6 % (0.1-12.0); Hematocrit 25.3 % (42.0-52.0); Hemoglobin 8.4 g/dL (14.1-18.0); Lymphocytes # 0.2 K/mm3 (0.7-4.5); Lymphocytes % 29.4 % (10-50); Mean Corpuscular HGB Conc 33.2 g/dL (31.8-35.4); Mean Corpuscular Hemoglobin 35.1 pg (27.0-31.2); Mean Corpuscular Volume 105.7 fl (80-94); Mean Platelet Volume 9.7 fl (7.4-10.4); Monocytes % 5.5 % (1.7-9.3); Neutrophils # 0.5 K/mm3 (1.8-7.8); Neutrophils % 63.7 % (37.0-80.0); Red Cell Distribution Width 17.7 % (11.5-17.5)
[2024-06-17 18:29] LABS: White Blood Count 0.8 K/mm3 (4.8-10.8)
[2024-06-17 18:30] LABS: Platelet Count 38 K/mm3 (142-424)
--- NOTE | 2024-06-17 18:31 | PC.NURSE ---
LAB CALLED CRITICAL LABS OF WBC 0.8 AND PLATELETS 38. NOTIFIED. NO NEW ORDERS.
[2024-06-17 18:32] LABS: MANUAL DIFFERENTIAL MANUAL DIFFERENTIAL (MANUAL DIFF)
[2024-06-17 19:07] LABS: Anisocytosis 1+; Eosinophils % 3 % (0-3); Lymphocytes % 30 % (10-50); Macrocytosis 1+; Monocytes % 4 % (2-9); Myelocytes % 1 (0-1); Neutrophils % 56 % (42-76); Platelet Estimate Marked Decrease; Poikilocytosis 1+; Total Cells Counted 100
[2024-06-17 19:08] LABS: Ovalocytes 1+; Tear Drop Cells 1+
[2024-06-17] MEDS: TAMSULOSIN 0.4MG CAPSULE 0.8 MG PO (20:32)
[2024-06-17] MEDS: PANTOPRAZOLE 40MG TABLET 40 MG PO (20:32)
[2024-06-18] MEDS: CEFEPIME HCL 1 GM in 0.9 % SODIUM CHLORIDE 50 ML IV ×2 (00:27→13:15)
--- NOTE | 2024-06-18 01:48 | EXP.EVENT.NO ---
Per nursing staff patient has had approximately 7 very large bowel movement, , he says he feels much better and his back pain is more tolerable
[2024-06-18 04:00] VITALS: BP 142/63; PULSE 103; RESP 18; TEMP 36.8; O2SAT 96; BMI 31.7
--- NOTE | 2024-06-18 05:16 | PC.NURSE ---
Pt has remained alert and oriented most of the shift but did have a couple episodes of confusion throughout the night. He has remained on room air with O2 sats greater than 90%. Lung sounds clear and bowel sounds active in all quadrants. Pt has had around seven large bm throughout the shift. He states he feels much better after. He has complained of back pain a couple times this shift and was treated per the MAR. No complaints at this time, call light within reach.
[2024-06-18 07:29] LABS: C-Reactive Protein 127.4 mg/L (0-4)
[2024-06-18 07:41] LABS: Procalcitonin 0.279 ng/mL (0.0-2.0)
[2024-06-18 07:55] VITALS: BP 158/89; PULSE 96; RESP 20; TEMP 36.9; O2SAT 98
[2024-06-18] MEDS: SENNOSIDES 8.6MG/DOCUSATE 50MG TABLET 1 TAB PO (08:01)
[2024-06-18] MEDS: LORATADINE 10MG TABLET 10 MG PO (08:01)
[2024-06-18] MEDS: AMLODIPINE 10MG TABLET 10 MG PO (08:02)
[2024-06-18] MEDS: MORPHINE 4MG/ML SYRINGE 4 MG IV ×2 (08:02→10:40)
[2024-06-18] MEDS: ONDANSETRON 4MG/2ML VIAL 4 MG IV (08:02)
[2024-06-18] MEDS: MELOXICAM 15 MG 15 EACH PO (08:02)
[2024-06-18] MEDS: CITALOPRAM 40MG TABLET 40 MG PO (08:02)
[2024-06-18 08:05] LABS: Alanine Aminotransferase 60 U/L (12-78); Albumin Level 3.3 g/dl (3.5-5.0); Alkaline Phosphatase 165 U/L (38-126); Anion Gap 8.2 mEq/L (5-15); Aspartate Amino Transferase 48 U/L (17-59); Blood Urea Nitrogen 21 mg/dl (9-20); Calcium 8.8 mg/dl (8.4-10.2); Carbon Dioxide 26 mmol/L (22.0-30.0); Chloride 105 mmol/L (98-107); Creatinine Clearance Estimated 90 mL/min (50-200); Estimated Glomerular Filt Rate 81 ml/min (>60); GFR (African American) 98 ML/MIN (>60); Globulin 3.2 g/dL (1.3-3.2); Glucose 140 mg/dl (74-100); Magnesium 2.4 mg/dl (1.6-2.3); Potassium 4.2 mmoL/L (3.5-5.1); Sodium 135 mmol/L (136-145); Total Protein,Serum 6.5 g/dl (6.3-8.2)
[2024-06-18 08:07] LABS: Basophils % 0.5 % (0.1-2.0); Eosinophils % 0.2 % (0.1-12.0); Hematocrit 27.7 % (42.0-52.0); Hemoglobin 9.2 g/dL (14.1-18.0); Lymphocytes # 0.4 K/mm3 (0.7-4.5); Lymphocytes % 33.5 % (10-50); Mean Corpuscular Hemoglobin 35.7 pg (27.0-31.2); Mean Corpuscular Volume 108.2 fl (80-94); Mean Platelet Volume 9.3 fl (7.4-10.4); Monocytes # 0.1 K/mm3 (0.1-1.0); Monocytes % 5.7 % (1.7-9.3); Neutrophils # 0.8 K/mm3 (1.8-7.8); Neutrophils % 60.1 % (37.0-80.0); Red Blood Count 2.56 M/mm3 (4.60-6.20); Red Cell Distribution Width 17.7 % (11.5-17.5); White Blood Count 1.3 K/mm3 (4.8-10.8)
[2024-06-18 08:09] LABS: Platelet Count 44 K/mm3 (142-424)
[2024-06-18 12:00] VITALS: BP 150/76; PULSE 82; RESP 20; TEMP 36.6; O2SAT 96
[2024-06-18 12:43] VITALS: BMI 31.6
[2024-06-18] MEDS: OXYCODONE 7.5MG W/APAP 325MG TABLET 1 EACH PO (13:14)
--- NOTE | 2024-06-18 13:54 | EXP.DC.SUM ---
General Admission date:: 06/16/24 Discharge date: 06/18/24 HPI HPI HPI: Patient has a myelodysplastic syndrome with extreme low WBCs and platelet. His oncologist is Dr. Whitt. The back pain began kind of suddenly on Friday it was not controlled by his present pain medicines at the house. Progressively worsened until any movement is severe, he lives at home with his and she is unable to care for him or move him or get him out of bed and his present condition. He reports no other symptoms Has a history of a compression fracture of his spine 20 years ago., And noted that before this event and his cancer he just considered his back normal gave him some pain but never any significant pain that would keep him from movement. Hospital Course Hospital Course Hospital Course: Myelodysplastic syndrome patient on chemotherapy patient admitted to hospital complaining of back discomfort, and ultimately diagnosed with back sprain and constipation. Patient stated back pain was more severe than ever. Patient had CT of thoracic/lumbar/sacral done at time of initial hospitalization without acute abnormalities other than degenerative disc disease and L5-L1 disc bulge. Patient then had MRI thoracic/lumbar/sacral done 06/16/2024 without acute abnormalities. Patient placed on home Mobic, scheduled Flexeril, and Solu-Medrol during hospitalization. Patient's back pain eventually resolved, and patient discharged home on Medrol Dosepak with as needed Flexeril. Patient advised to follow-up with primary care physician for further back complaints. Given patient's low platelet issues during hospitalization, patient's Mobic placed on hold by Dr. Ambrosio during time of hospital discharge. Patient advised to follow-up with Dr. Whitt, oncologist to determine when it was safe to restart Mobic medication. Patient also complained of abdominal distention during hospitalization. 06/16 CT abdomen/pelvis showed abdominal distention without signs of ileus or obstruction. 06/16/24 patient started on bowel regimen Bernadette-Colace, Colace, MiraLAX and lactulose, but failed to have significant bowel movement 06/16/24. Patient also developed fever 101 ?F 06/16 around 11 AM, and was placed on IV cefepime for neutropenic fever prophylaxis. Patient remained afebrile throughout remainder of hospitalization. Infection workup showed no definitive signs of infection. Patient also had platelet count 16 on 06/17, so was given 1 unit pooled platelets. Patient's platelets increased to 44 by 06/18/24. On 06/17/2024 KUB showed intestinal track full of stool. 06/17 patient maintained on same bowel regimen with mag citrate 5 ounces x 2 added. Patient had 7 large bowel movements 06/17 overnight. Patient felt back to functional baseline 06/18/2024. Patient subsequently discharged home with instructions to follow-up with PCP, oncology on outpatient basis. Patient's case discussed with his oncologist, Dr. Whitt daily throughout hospitalization by Dr. Ambrosio. Patient also noted to suffer from some hypertension during hospitalization, and started on amlodipine 10 mg p.o. daily. Patient advised to follow-up with primary care physician for further blood pressure control after hospital discharge. Exam Data for Last 24 hours Vital signs and Labs for Last 24 Hours: Temp Pulse Resp BP Pulse Ox O2 Del Method 97.9 F 82 20 150/76 H 96 Room Air 06/18/24 12:00 06/18/24 12:00 06/18/24 12:00 06/18/24 12:00 06/18/24 12:00 06/18/24 13:00 Laboratory Results - last 24 hr 06/17/24 07:45: Blood Type O Positive 06/17/24 17:58: WBC 0.8 L* D, RBC 2.40 L, Hgb 8.4 L, Hct 25.3 L, MCV 105.7 H, MCH 35.1 H, MCHC 33.2, RDW 17.7 H, Plt Count 38 L* D, MPV 9.7, Neut % (Auto) 63.7, Lymph % (Auto) 29.4, [place] % (Auto) 5.5, Eos % (Auto) 0.6, Baso % (Auto) 0.8, Neut # (Auto) 0.5 L*, Lymph # (Auto) 0.2 L, [place] # (Auto) 0.0 L, Eos # (Auto) 0.0, Baso # (Auto) 0.0, Total Counted 100, Neutrophils % (Manual) 56, Band Neutrophils % 4.0, Lymphocytes % (Manual) 30, Monocytes % (Manual) 4, Eosinophils % (Manual) 3, Basophils % (Manual) 1.0, Metamyelocytes % 1.0, Myelocytes % 1, Platelet Estimate Marked decrease, Poikilocytosis 1+, Anisocytosis 1+, Macrocytosis 1+, Tear Drop Cells 1+, Ovalocytes 1+ 06/18/24 06:55: WBC 1.3 L* D, RBC 2.56 L, Hgb 9.2 L, Hct 27.7 L, MCV 108.2 H, MCH 35.7 H, MCHC 33.0, RDW 17.7 H, Plt Count 44 L*, MPV 9.3, Neut % (Auto) 60.1, Lymph % (Auto) 33.5, [place] % (Auto) 5.7, Eos % (Auto) 0.2, Baso % (Auto) 0.5, Neut # (Auto) 0.8 L*, Lymph # (Auto) 0.4 L, [place] # (Auto) 0.1, Eos # (Auto) 0.0, Baso # (Auto) 0.0, Sodium 135 L, Potassium 4.2, Chloride 105, Carbon Dioxide 26, Anion Gap 8.2, BUN 21 H, Creatinine 0.90 D, Estimated Creat Clear 90, Estimated GFR 81, Est GFR ( Amer) 98 D, Glucose 140 H, Calcium 8.8, Magnesium 2.4 H D, Total Bilirubin 1.0, AST 48 D, ALT 60, Alkaline Phosphatase 165 H, C-Reactive Protein 127.4 H, Total Protein 6.5, Albumin 3.3 L, Globulin 3.2, Albumin/Globulin Ratio 1.0 L, Procalcitonin 0.279 I & O for Last 24 hours: Intake & Output 06/15/24 06/16/24 06/17/24 06/18/24 23:59 23:59 23:59 23:59 Intake Total 637 / 937 1460 / 1760 480 / 480 Output Total 1200 / 1200 2300 / 2300 450 / 450 Balance -563 / -263 -840 / -540 30 / 30 Weight 107.637 kg 107.637 kg 106.231 kg 106 kg Microbiology Reports for the Last 24 Hours: Microbiology 06/16/24 13:45 Blood Blood Culture - Preliminary NO GROWTH AFTER 24 HOURS 06/16/24 13:40 Blood Blood Culture - Preliminary NO GROWTH AFTER 24 HOURS Constitutional Constitutional: no acute distress *Routine HEENT Exam Head: Present normocephalic Eye: Present EOMI and normal accommodation ENT: Present mucous membranes moist *Routine Neck Exam Neck: Present supple and full ROM *Routine Respiratory Exam Respiratory: Present CTA bilaterally and normal respiratory effort *Routine Cardiovascular Exam Cardiovascular: Present RRR, Normal S1 and Normal S2 *Routine Abdominal Exam Abdominal: Present soft and normoactive bowel sounds; Absent rebound or guarding *Routine Extremities Exam Extremities: Present full ROM and normal capillary refill *Routine Skin Exam Skin: Present intact and dry *Routine Neurological Exam Neurological: Present alert, oriented X3 and CN II-XII intact Results Data Completed and Pending Labs on day of discharge: Labs from last 24 hours 06/18/24 06/17/24 06/17/24 06:55 17:58 07:45 WBC 1.3 L* D 0.8 L* D RBC 2.56 L 2.40 L Hgb 9.2 L 8.4 L Hct 27.7 L 25.3 L MCV 108.2 H 105.7 H MCH 35.7 H 35.1 H MCHC 33.0 33.2 RDW 17.7 H 17.7 H Plt Count 44 L* 38 L* D MPV 9.3 9.7 Neut % (Auto) 60.1 63.7 Lymph % (Auto) 33.5 29.4 [place] % (Auto) 5.7 5.5 Eos % (Auto) 0.2 0.6 Baso % (Auto) 0.5 0.8 Neut # (Auto) 0.8 L* 0.5 L* Lymph # (Auto) 0.4 L 0.2 L [place] # (Auto) 0.1 0.0 L Eos # (Auto) 0.0 0.0 Baso # (Auto) 0.0 0.0 Total Counted 100 Neutrophils % (Manual) 56 Band Neutrophils % 4.0 Lymphocytes % (Manual) 30 Monocytes % (Manual) 4 Eosinophils % (Manual) 3 Basophils % (Manual) 1.0 Metamyelocytes % 1.0 Myelocytes % 1 Platelet Estimate Marked decrease Poikilocytosis 1+ Anisocytosis 1+ Macrocytosis 1+ Tear Drop Cells 1+ Ovalocytes 1+ Sodium 135 L Potassium 4.2 Chloride 105 Carbon Dioxide 26 Anion Gap 8.2 BUN 21 H Creatinine 0.90 D Estimated Creat Clear 90 Estimated GFR 81 Est GFR ( Amer) 98 D Glucose 140 H Calcium 8.8 Magnesium 2.4 H D Total Bilirubin 1.0 AST 48 D ALT 60 Alkaline Phosphatase 165 H C-Reactive Protein 127.4 H Total Protein 6.5 Albumin 3.3 L Globulin 3.2 Albumin/Globulin Ratio 1.0 L Procalcitonin 0.279 Blood Type O Positive Preliminary micro results at discharge 06/16/24 13:45 Blood Culture - Preliminary Blood NO GROWTH AFTER 24 HOURS 06/16/24 13:40 Blood Culture - Preliminary Blood NO GROWTH AFTER 24 HOURS Impressions Impressions: 06/17/2024 KUB: IMPRESSION: Nonobstructive bowel gas pattern with a moderate stool burden 06/16/24 CT abdomen/pelvis IMPRESSION: Less than 3 mm nonobstructing right renal stone. Distended stomach with air and fluid and multiple air-filled bowel loops in a nonspecific pattern. No evidence of bowel obstruction. Diverticulosis without evidence of diverticulitis. 06/16/24 thoracic spine MRI IMPRESSION: Multilevel mild degenerative disc disease and spondylosis. No focal soft disc protrusion or significant central canal stenosis 06/16/24 lumbar spine MRI IMPRESSION: Multilevel lumbar degenerative change is noted, with mild to moderate neural foraminal narrowing but no evidence of canal stenosis. The tip of the conus is at the L1 level, and the portions of the lower thoracic cord visualized on this exam are unremarkable 06/15/[address] IMPRESSION: 1. There is no evidence of acute fracture.There is no evidence of malalignment or dislocation. 2. Broad-based disc bulge at L5/S1 may represent degenerative disc disease.. DS: Diagnosis Discharge Diagnosis (1) Back pain: Status: Acute Code(s): M54.9 - Dorsalgia, unspecified (2) Abdominal pain: Status: Acute Code(s): R10.9 - Unspecified abdominal pain (3) Febrile illness: Status: Acute Code(s): R50.9 - Fever, unspecified (4) MDS (myelodysplastic syndrome): Status: Acute Code(s): D46.9 - Myelodysplastic syndrome, unspecified (5) Constipation: Status: Acute Code(s): K59.00 - Constipation, unspecified (6) Hypertension: Status: Acute Code(s): I10 - Essential (primary) hypertension Meds Home Medications and Allergies Home Medications ?Medication ?Instructions ?Recorded ?Confirmed ?Type tamsulosin 0.4 mg capsule (Flomax) 0.8 mg PO HS 07/30/18 06/15/24 History meloxicam 15 mg tablet 15 mg PO DAILY 04/19/21 06/15/24 History oxycodone-acetaminophen 7.5 mg-325 1 tab PO Q8H Pain 06/14/21 06/15/24 History mg tablet escitalopram oxalate 20 mg tablet 20 mg PO DAILY 03/28/23 06/15/24 History buspirone 10 mg tablet 10 mg PO TIDP PRN Anxiety 08/14/23 06/16/24 History omeprazole 20 mg capsule,delayed 20 mg PO DAILY 4 weeks #28 caps 01/15/24 06/15/24 Rx release levocetirizine 5 mg tablet 5 mg PO DAILY 06/15/24 06/15/24 History amlodipine 10 mg tablet 10 mg PO DAILY #60 tabs 06/18/24 Rx cyclobenzaprine 10 mg tablet 10 mg PO Q8HP PRN Muscle Spasm #30 06/18/24 06/16/24 Rx tabs methylprednisolone 4 mg tablets in 4 mg PO DAILY #21 tabs 06/18/24 Rx a dose pack (Medrol (Jesse)) polyethylene glycol 3350 17 gram 17 g PO DAILY #30 ea 06/18/24 Rx oral powder packet (HealthyLax) sennosides 8.6 mg-docusate sodium 1 tab PO BID #30 tabs 06/18/24 Rx 50 mg tablet (Stimulant Laxative Plus) New Prescriptions to Start Prescriptions: amlodipine Ambrosio,Azure methylprednisolone [Medrol (Jesse)] Ambrosio,Manish polyethylene glycol 3350 [HealthyLax] Ambrosio,Azure sennosides-docusate sodium [Stimulant Laxative Plus] Ambrosio,Azure Allergies Allergy/AdvReac Type Severity Reaction Status Date / Time No Known Allergies Allergy Verified 06/03/24 09:15 Discharge Plan Disposition Patient Disposition: Home, Self-Care Condition: Fair Discharge Order Discharge Orders: Discharge Order (Routine); Ordered 06/18/24 Ordered By: Manish Ambrosio Follow up Plan Follow up with: Chinmay Whitt MD [Staff Physician] - 06/29/24 9:00 am (Please keep June [address] Whitt, or schedule sooner appointment if Dr. Salcedo desires.) Darian Brunner MD [Primary Care Provider] - 06/24/24 12:30 pm (appointment in [place] office) Prescriptions/Medication Reconciliation: New methylprednisolone [Medrol (Jesse)] 4 mg tablets,dose pack 4 mg PO DAILY Qty: 21 0RF polyethylene glycol 3350 [HealthyLax] 17 gram Powder In Packet 17 g PO DAILY Qty: 30 0RF sennosides-docusate sodium [Stimulant Laxative Plus] 8.6-50 mg Tablet 1 tab PO BID Qty: 30 0RF amlodipine 10 mg Tablet 10 mg PO DAILY Qty: 60 0RF Continued tamsulosin [Flomax] 0.4 mg capsule 0.8 mg PO HS buspirone 10 mg tablet 10 mg PO TIDP PRN (Reason: Anxiety) oxycodone-acetaminophen 7.5-325 mg tablet 1 tab PO Q8H escitalopram oxalate 20 mg tablet 20 mg PO DAILY levocetirizine 5 mg tablet 5 mg PO DAILY cyclobenzaprine 10 mg tablet 10 mg PO Q8HP PRN (Reason: Muscle Spasm) Qty: 30 0RF omeprazole 20 mg capsule,delayed release(DR/EC) 20 mg PO DAILY 28 Days Qty: 28 0RF Held meloxicam 15 mg tablet 15 mg PO DAILY Hold Instructions: Resume on 06/30/24. Please do not resume this medication until you discuss it with Dr. Whitt, nurse staff industrial/oncologist Problem Reconciliation Problems Reviewed?: Yes Patient Discharge Instructions ACTIVITY: Continue current activity DIET: continue same diet Patient Instructions: DI for Low Back Pain, DI for Chronic Pain -- Adult Print Language: Belarusian Providers Primary Care Provider: Darian Brunner Admit Provider: Manish Ambrosio Attending Provider: Manish Ambrosio
--- NOTE | 2024-06-21 16:16 | SW/DCPLANNER ---
Hospital discharge follow up phone call: stated that patient is currently asleep but is feeling better. Patient/ are aware of follow up appointments and was able to hand picker new medications. Per patient's home health services are set to start tomorrow. No further questions/needs at this time.
[2024-06-21 22:14] LABS: Adenovirus,PCR Not Detected (NotDetected)
== END 2024-06-18 14:20 | disposition home health service (06) | DRG 552 ==
LOC: ER 19:49 → 2ND 20:55
PROVIDERS: Nurse Practitioner Family; Admitting Provider Internal Medicine; Emergency Provider Emergency Medicine; PCP Internal Medicine Adolescent Medicine; Visit Provider Internal Medicine
DX: S33.5XXA Sprain of ligaments of lumbar spine, initial encounter (principal); M62.830 Muscle spasm of back; X58.XXXA Exposure to other specified factors, initial encounter; D46.9 Myelodysplastic syndrome, unspecified; Z87.891 Personal history of nicotine dependence; K21.9 Gastro-esophageal reflux disease without esophagitis; G89.29 Other chronic pain; R93.1 Abnormal findings on diagnostic imaging of heart and coronary circulation; Z01.810 Encounter for preprocedural cardiovascular examination; I48.91 Unspecified atrial fibrillation; R94.31 Abnormal electrocardiogram [ECG] [EKG]; R06.09 Other forms of dyspnea; N40.0 Benign prostatic hyperplasia without lower urinary tract symptoms; I10 Essential (primary) hypertension; F41.9 Anxiety disorder, unspecified; K59.00 Constipation, unspecified
CPT/HCPCS: 36415; 72128; 72131; 72146; 72149; 72192; 74018; 74176; 80053; 83605; 83735; 84145; 85007; 85014; 85018; 85025; 85027; 85651; 86140; 86900; 86901; 87040; 87081; 87086; 87265; 87486; 87581; 87632; 87635; 97116; 97163; 97166; 97530; 97535; 99285; J0692; J2270; J2405; J2919; J3360; J7120; P9034

== ENCOUNTER 2024-06-29 08:41 | Outpatient (CLI) | payer MEDICARE, MEDICAID, SELFPAY ==
[2024-06-29 08:50] VITALS: BMI 32.4
[2024-06-29 09:05] LABS: Basophils % 1.3 % (0.1-2.0); Eosinophils % 1.7 % (0.1-12.0); Hematocrit 33.1 % (42.0-52.0); Hemoglobin 10.2 g/dL (14.1-18.0); Lymphocytes # 1.1 K/mm3 (0.7-4.5); Lymphocytes % 57.6 % (10-50); Mean Corpuscular HGB Conc 30.8 g/dL (31.8-35.4); Mean Corpuscular Hemoglobin 35.3 pg (27.0-31.2); Mean Corpuscular Volume 114.5 fl (80-94); Mean Platelet Volume 10.1 fl (7.4-10.4); Monocytes # 0.1 K/mm3 (0.1-1.0); Monocytes % 2.8 % (1.7-9.3); Neutrophils # 0.7 K/mm3 (1.8-7.8); Neutrophils % 36.6 % (37.0-80.0); Platelet Count 102 K/mm3 (142-424); Red Blood Count 2.89 M/mm3 (4.60-6.20); Red Cell Distribution Width 18.1 % (11.5-17.5)
[2024-06-29 09:16] LABS: Albumin Level 4.1 g/dl (3.5-5.0); Chloride 109 mmol/L (98-107); Potassium 3.8 mmoL/L (3.5-5.1); Sodium 141 mmol/L (136-145)
[2024-06-29 09:19] LABS: Alanine Aminotransferase 81 U/L (12-78); Albumin/Globulin Ratio 1.2 (1.1-1.8); Alkaline Phosphatase 183 U/L (38-126); Anion Gap 7.8 mEq/L (5-15); Aspartate Amino Transferase 66 U/L (17-59); Bilirubin,Total 0.7 mg/dl (0.2-1.3); Blood Urea Nitrogen 23 mg/dl (9-20); Calcium 8.9 mg/dl (8.4-10.2); Carbon Dioxide 28 mmol/L (22.0-30.0); Creatinine Clearance Estimated 77 mL/min (50-200); Estimated Glomerular Filt Rate 58 ml/min (>60); GFR (African American) 71 ML/MIN (>60); Globulin 3.3 g/dL (1.3-3.2); Glucose 102 mg/dl (74-100); Total Protein,Serum 7.4 g/dl (6.3-8.2)
[2024-06-29 09:29] LABS: MANUAL DIFFERENTIAL MANUAL DIFFERENTIAL (MANUAL DIFF)
[2024-06-29 09:40] VITALS: BP 125/72; PULSE 95; RESP 20; TEMP 36.4; O2SAT 98
[2024-06-29] MEDS: PROCHLORPERAZINE 10MG TABLET 10 MG PO (09:40)
[2024-06-29 10:10] VITALS: BP 121/68; PULSE 89; RESP 20; O2SAT 97
[2024-06-29] MEDS: SODIUM CHLORIDE 0.9% IV (10:20)
[2024-06-29] MEDS: SODIUM CHLORIDE 0.9% 50ML BAG 50 ML IV (10:20)
[2024-06-29] MEDS: DECITABINE IV (10:20)
[2024-06-29] MEDS: SODIUM CHLORIDE 0.9% 10ML FLUSH SYRINGE 10 ML IV (10:37)
[2024-06-29 10:40] VITALS: BP 119/66; PULSE 88; RESP 20; O2SAT 98
[2024-06-29 11:35] VITALS: BP 119/60; PULSE 81; RESP 20; O2SAT 98
[2024-06-29 11:58] LABS: Lymphocytes % 62 % (10-50); Monocytes % 4 % (2-9); Neutrophils % 34 % (42-76); Total Cells Counted 50
[2024-06-29 11:59] LABS: Macrocytosis 2+; Platelet Estimate Moderate Decrease
== END 2024-06-29 11:35 | disposition home or self-care (01) ==
LOC: INF 08:43
PROVIDERS: PCP Internal Medicine Adolescent Medicine; Visit Provider Internal Medicine Medical Oncology
DX: D46.9 Myelodysplastic syndrome, unspecified (principal)
CPT/HCPCS: 80053; 85007; 85025; 96413; J0894; Q0164

== ENCOUNTER 2024-06-30 08:45 | Outpatient (CLI) | payer MEDICARE, MEDICAID, SELFPAY ==
[2024-06-30] MEDS: PROCHLORPERAZINE 10MG TABLET 10 MG PO (08:55)
[2024-06-30] MEDS: SODIUM CHLORIDE 0.9% IV (09:25)
[2024-06-30] MEDS: DECITABINE IV (09:25)
[2024-06-30] MEDS: SODIUM CHLORIDE 0.9% 50ML BAG 50 ML IV (09:25)
[2024-06-30 09:30] VITALS: BP 139/62; PULSE 68; RESP 18; TEMP 36.6; O2SAT 97
[2024-06-30 10:35] VITALS: BP 153/73; PULSE 78; RESP 18; O2SAT 98
== END 2024-06-30 10:35 | disposition home or self-care (01) ==
LOC: INF 08:46
PROVIDERS: PCP Internal Medicine Adolescent Medicine; Visit Provider Internal Medicine Medical Oncology
DX: D46.9 Myelodysplastic syndrome, unspecified (principal)
CPT/HCPCS: 96413; J0894; Q0164

== ENCOUNTER 2024-07-01 08:32 | Outpatient (CLI) | payer MEDICARE, MEDICAID, SELFPAY ==
[2024-07-01] MEDS: SODIUM CHLORIDE 0.9% 50ML BAG 50 ML IV (08:54)
[2024-07-01 08:56] VITALS: BP 139/69; PULSE 84; RESP 18; TEMP 36.4; O2SAT 98
[2024-07-01] MEDS: SODIUM CHLORIDE 0.9% 10ML FLUSH SYRINGE 10 ML IV (08:56)
[2024-07-01] MEDS: PROCHLORPERAZINE 10MG TABLET 10 MG PO (08:56)
[2024-07-01 09:16] VITALS: BP 125/76; PULSE 79; RESP 18; O2SAT 98
[2024-07-01] MEDS: SODIUM CHLORIDE 0.9% IV (09:16)
[2024-07-01] MEDS: DECITABINE IV (09:16)
[2024-07-01 09:46] VITALS: BP 129/77; PULSE 81; RESP 18; O2SAT 98
== END 2024-07-01 09:50 | disposition home or self-care (01) ==
LOC: INF 08:34
PROVIDERS: PCP Internal Medicine Adolescent Medicine; Visit Provider Internal Medicine Medical Oncology
DX: Z51.11 Encounter for antineoplastic chemotherapy (principal); C43.8 Malignant melanoma of overlapping sites of skin; Z79.899 Other long term (current) drug therapy
CPT/HCPCS: 96413; J0894; Q0164

== ENCOUNTER 2024-07-07 08:58 | Outpatient (CLI) | payer MEDICARE, MEDICAID, SELFPAY ==
[2024-07-07 09:04] VITALS: BMI 31.4
[2024-07-07 09:19] LABS: Basophils % 0.8 % (0.1-2.0); Eosinophils % 2.2 % (0.1-12.0); Hematocrit 31.2 % (42.0-52.0); Lymphocytes % 66.4 % (10-50); Mean Corpuscular Hemoglobin 36.8 pg (27.0-31.2); Mean Corpuscular Volume 114.8 fl (80-94); Mean Platelet Volume 10.1 fl (7.4-10.4); Monocytes % 1.7 % (1.7-9.3); Neutrophils # 0.4 K/mm3 (1.8-7.8); Neutrophils % 28.8 % (37.0-80.0); Red Blood Count 2.72 M/mm3 (4.60-6.20); Red Cell Distribution Width 17.3 % (11.5-17.5); White Blood Count 1.5 K/mm3 (4.8-10.8)
[2024-07-07 09:21] LABS: MANUAL DIFFERENTIAL MANUAL DIFFERENTIAL (MANUAL DIFF); Platelet Count 46 K/mm3 (142-424)
[2024-07-07 09:31] LABS: Alanine Aminotransferase 78 U/L (12-78); Albumin/Globulin Ratio 1.2 (1.1-1.8); Alkaline Phosphatase 193 U/L (38-126); Anion Gap 12.7 mEq/L (5-15); Aspartate Amino Transferase 84 U/L (17-59); Bilirubin,Total 1.2 mg/dl (0.2-1.3); Blood Urea Nitrogen 22 mg/dl (9-20); Calcium 9.3 mg/dl (8.4-10.2); Carbon Dioxide 26 mmol/L (22.0-30.0); Chloride 107 mmol/L (98-107); Creatinine Clearance Estimated 69 mL/min (50-200); Estimated Glomerular Filt Rate 53 ml/min (>60); GFR (African American) 64 ML/MIN (>60); Globulin 3.3 g/dL (1.3-3.2); Glucose 131 mg/dl (74-100); Potassium 3.7 mmoL/L (3.5-5.1); Sodium 142 mmol/L (136-145); Total Protein,Serum 7.3 g/dl (6.3-8.2)
[2024-07-07 12:23] LABS: Lymphocytes % 66 % (10-50); Macrocytosis 3+; Monocytes % 2 % (2-9); Neutrophils % 32 % (42-76); Total Cells Counted 50
[2024-07-07 12:24] LABS: Platelet Estimate Marked Decrease
== END 2024-07-07 09:20 | disposition home or self-care (01) ==
LOC: INF 08:59
PROVIDERS: PCP Internal Medicine Adolescent Medicine; Visit Provider Internal Medicine Medical Oncology
DX: D46.9 Myelodysplastic syndrome, unspecified (principal)
CPT/HCPCS: 36415; 80053; 85007; 85025; 85027

== ENCOUNTER 2024-07-14 10:02 | Outpatient (CLI) | payer MEDICARE, MEDICAID, SELFPAY ==
[2024-07-14 10:08] VITALS: BMI 31.4
[2024-07-14 10:35] LABS: Alanine Aminotransferase 85 U/L (12-78); Albumin Level 3.8 g/dl (3.5-5.0); Albumin/Globulin Ratio 1.2 (1.1-1.8); Alkaline Phosphatase 203 U/L (38-126); Anion Gap 7.6 mEq/L (5-15); Aspartate Amino Transferase 94 U/L (17-59); Bilirubin,Total 1.2 mg/dl (0.2-1.3); Blood Urea Nitrogen 20 mg/dl (9-20); Calcium 9.2 mg/dl (8.4-10.2); Carbon Dioxide 26 mmol/L (22.0-30.0); Chloride 108 mmol/L (98-107); Creatinine Clearance Estimated 69 mL/min (50-200); Estimated Glomerular Filt Rate 53 ml/min (>60); GFR (African American) 64 ML/MIN (>60); Globulin 3.2 g/dL (1.3-3.2); Glucose 134 mg/dl (74-100); Potassium 3.6 mmoL/L (3.5-5.1); Sodium 138 mmol/L (136-145)
[2024-07-14 10:43] LABS: Basophils % 0.4 % (0.1-2.0); Eosinophils # 0.1 K/mm3 (0.0-0.4); Eosinophils % 6.9 % (0.1-12.0); Hematocrit 28.8 % (42.0-52.0); Hemoglobin 9.2 g/dL (14.1-18.0); Lymphocytes # 1.1 K/mm3 (0.7-4.5); Lymphocytes % 74.6 % (10-50); Mean Corpuscular HGB Conc 31.9 g/dL (31.8-35.4); Mean Corpuscular Hemoglobin 37.6 pg (27.0-31.2); Mean Corpuscular Volume 117.9 fl (80-94); Mean Platelet Volume 10.2 fl (7.4-10.4); Monocytes % 2.4 % (1.7-9.3); Neutrophils # 0.2 K/mm3 (1.8-7.8); Neutrophils % 15.6 % (37.0-80.0); Red Blood Count 2.44 M/mm3 (4.60-6.20); Red Cell Distribution Width 17.8 % (11.5-17.5); White Blood Count 1.4 K/mm3 (4.8-10.8)
[2024-07-14 10:44] LABS: Platelet Count 29 K/mm3 (142-424)
[2024-07-14 10:46] LABS: MANUAL DIFFERENTIAL MANUAL DIFFERENTIAL (MANUAL DIFF)
[2024-07-14 13:19] LABS: Eosinophils % 4 % (0-3); Lymphocytes % 74 % (10-50); Monocytes % 2 % (2-9); Neutrophils % 20 % (42-76); Total Cells Counted 50
[2024-07-14 13:20] LABS: Macrocytosis 3+; Platelet Estimate Marked Decrease
== END 2024-07-14 10:14 | disposition home or self-care (01) ==
LOC: INF 10:04
PROVIDERS: PCP Internal Medicine Adolescent Medicine; Visit Provider Internal Medicine Medical Oncology
DX: D46.9 Myelodysplastic syndrome, unspecified (principal)
CPT/HCPCS: 36415; 80053; 85007; 85025; 85027

== ENCOUNTER 2024-07-22 09:00 | Outpatient (CLI) | payer MEDICARE, MEDICAID, SELFPAY ==
[2024-07-22 09:05] VITALS: BMI 31.4
--- NOTE | 2024-07-22 09:15 | PC.NURSE ---
Pt presents today for labs. Venipuncture performed to pt's lt ac using a butterfly access needle x 1 stick, blood drawn. Needle withdrawn and site secured with 2x2 gauze and coban. Lab specimen sent to lab for analysis.
[2024-07-22 09:32] LABS: Basophils % 1.9 % (0.1-2.0); Eosinophils # 0.1 K/mm3 (0.0-0.4); Hematocrit 28.8 % (42.0-52.0); Hemoglobin 9.4 g/dL (14.1-18.0); Lymphocytes # 0.8 K/mm3 (0.7-4.5); Lymphocytes % 70.6 % (10-50); Mean Corpuscular HGB Conc 32.8 g/dL (31.8-35.4); Mean Corpuscular Hemoglobin 36.6 pg (27.0-31.2); Mean Corpuscular Volume 111.9 fl (80-94); Mean Platelet Volume 9.6 fl (7.4-10.4); Monocytes % 3.4 % (1.7-9.3); Neutrophils # 0.2 K/mm3 (1.8-7.8); Neutrophils % 19.1 % (37.0-80.0); Platelet Count 72 K/mm3 (142-424); Red Blood Count 2.58 M/mm3 (4.60-6.20); Red Cell Distribution Width 17.5 % (11.5-17.5); White Blood Count 1.1 K/mm3 (4.8-10.8)
[2024-07-22 09:33] LABS: Alanine Aminotransferase 45 U/L (12-78); Albumin Level 3.9 g/dl (3.5-5.0); Albumin/Globulin Ratio 1.3 (1.1-1.8); Alkaline Phosphatase 159 U/L (38-126); Anion Gap 4.9 mEq/L (5-15); Aspartate Amino Transferase 58 U/L (17-59); Bilirubin,Total 0.8 mg/dl (0.2-1.3); Blood Urea Nitrogen 17 mg/dl (9-20); Carbon Dioxide 26 mmol/L (22.0-30.0); Chloride 110 mmol/L (98-107); Creatinine Clearance Estimated 64 mL/min (50-200); Estimated Glomerular Filt Rate 49 ml/min (>60); GFR (African American) 59 ML/MIN (>60); Globulin 3.1 g/dL (1.3-3.2); Glucose 98 mg/dl (74-100); Potassium 3.9 mmoL/L (3.5-5.1); Sodium 137 mmol/L (136-145)
[2024-07-22 10:26] LABS: MANUAL DIFFERENTIAL MANUAL DIFFERENTIAL (MANUAL DIFF)
[2024-07-22 11:41] LABS: Lymphocytes % 74 % (10-50); Macrocytosis 2+; Monocytes % 6 % (2-9); Neutrophils % 20 % (42-76); Total Cells Counted 50
[2024-07-22 11:42] LABS: Platelet Estimate Moderate Decrease
== END 2024-07-22 09:29 | disposition home or self-care (01) ==
LOC: INF 09:04
PROVIDERS: PCP Internal Medicine Adolescent Medicine; Visit Provider Internal Medicine Medical Oncology
DX: D46.9 Myelodysplastic syndrome, unspecified (principal)
CPT/HCPCS: 36415; 80053; 85007; 85025; 85027

== ENCOUNTER 2024-07-28 08:03 | Outpatient (CLI) | payer MEDICARE, MEDICAID, SELFPAY ==
[2024-07-28 08:11] VITALS: BMI 31.4
[2024-07-28 08:29] LABS: Albumin Level 4.2 g/dl (3.5-5.0); Chloride 109 mmol/L (98-107); Sodium 139 mmol/L (136-145)
[2024-07-28 08:30] LABS: Potassium 3.9 mmoL/L (3.5-5.1)
[2024-07-28 08:32] LABS: Alanine Aminotransferase 31 U/L (12-78); Albumin/Globulin Ratio 1.2 (1.1-1.8); Alkaline Phosphatase 142 U/L (38-126); Anion Gap 10.9 mEq/L (5-15); Aspartate Amino Transferase 30 U/L (17-59); Bilirubin,Total 0.8 mg/dl (0.2-1.3); Blood Urea Nitrogen 18 mg/dl (9-20); Carbon Dioxide 23 mmol/L (22.0-30.0); Creatinine Clearance Estimated 59 mL/min (50-200); Estimated Glomerular Filt Rate 45 ml/min (>60); GFR (African American) 55 ML/MIN (>60); Globulin 3.4 g/dL (1.3-3.2); Total Protein,Serum 7.6 g/dl (6.3-8.2)
[2024-07-28 08:33] LABS: Calcium 9.5 mg/dl (8.4-10.2); Glucose 106 mg/dl (74-100)
[2024-07-28 08:34] LABS: Basophils % 2.3 % (0.1-2.0); Eosinophils # 0.1 K/mm3 (0.0-0.4); Eosinophils % 3.2 % (0.1-12.0); Hematocrit 32.6 % (42.0-52.0); Lymphocytes % 62.7 % (10-50); Mean Corpuscular HGB Conc 33.7 g/dL (31.8-35.4); Mean Corpuscular Hemoglobin 36.9 pg (27.0-31.2); Mean Corpuscular Volume 109.6 fl (80-94); Mean Platelet Volume 9.6 fl (7.4-10.4); Monocytes % 2.5 % (1.7-9.3); Neutrophils # 0.5 K/mm3 (1.8-7.8); Neutrophils % 29.2 % (37.0-80.0); Platelet Count 115 K/mm3 (142-424); Red Blood Count 2.98 M/mm3 (4.60-6.20); Red Cell Distribution Width 16.5 % (11.5-17.5); White Blood Count 1.5 K/mm3 (4.8-10.8)
[2024-07-28 08:40] LABS: MANUAL DIFFERENTIAL MANUAL DIFFERENTIAL (MANUAL DIFF)
--- NOTE | 2024-07-28 09:37 | PC.NURSE ---
0937-PER MD ORDER PT NOT TO RECEIVE TREATMENT TODAY; PT TO RETURN NEXT WEEK FOR LAB CHECK.
[2024-07-28 10:07] LABS: Lymphocytes % 72 % (10-50); Neutrophils % 28 % (42-76); Total Cells Counted 25
[2024-07-28 10:08] LABS: Platelet Estimate Moderate Decrease
== END 2024-07-28 09:37 | disposition home or self-care (01) ==
LOC: INF 08:04
PROVIDERS: PCP Internal Medicine Adolescent Medicine; Visit Provider Internal Medicine Medical Oncology
DX: C90.00 Multiple myeloma not having achieved remission (principal)
CPT/HCPCS: 36415; 80053; 85007; 85025; 85027

== ENCOUNTER 2024-08-03 09:56 | Outpatient (CLI) | payer MEDICARE, MEDICAID, SELFPAY ==
[2024-08-03 10:05] VITALS: BMI 31.1
[2024-08-03 10:18] LABS: Basophils % 1.6 % (0.1-2.0); Eosinophils # 0.1 K/mm3 (0.0-0.4); Eosinophils % 4.3 % (0.1-12.0); Hematocrit 29.8 % (42.0-52.0); Hemoglobin 10.2 g/dL (14.1-18.0); Lymphocytes # 0.7 K/mm3 (0.7-4.5); Lymphocytes % 60.5 % (10-50); Mean Corpuscular HGB Conc 34.2 g/dL (31.8-35.4); Mean Corpuscular Hemoglobin 37.7 pg (27.0-31.2); Mean Corpuscular Volume 110.2 fl (80-94); Mean Platelet Volume 10.4 fl (7.4-10.4); Monocytes # 0.1 K/mm3 (0.1-1.0); Monocytes % 4.6 % (1.7-9.3); Neutrophils # 0.3 K/mm3 (1.8-7.8); Neutrophils % 28.9 % (37.0-80.0); Platelet Count 75 K/mm3 (142-424); Red Blood Count 2.71 M/mm3 (4.60-6.20); Red Cell Distribution Width 15.8 % (11.5-17.5); White Blood Count 1.1 K/mm3 (4.8-10.8)
[2024-08-03 10:23] LABS: MANUAL DIFFERENTIAL MANUAL DIFFERENTIAL (MANUAL DIFF)
[2024-08-03 11:16] LABS: Lymphocytes % 72 % (10-50); Macrocytosis 2+; Monocytes % 4 % (2-9); Neutrophils % 24 % (42-76); Platelet Estimate Moderate Decrease; Total Cells Counted 25
== END 2024-08-03 10:14 | disposition home or self-care (01) ==
LOC: INF 09:57
PROVIDERS: PCP Internal Medicine Adolescent Medicine; Visit Provider Internal Medicine Medical Oncology
DX: D46.9 Myelodysplastic syndrome, unspecified (principal)
CPT/HCPCS: 36415; 85007; 85025; 85027

== ENCOUNTER 2024-08-10 08:45 | Outpatient (CLI) | payer MEDICARE, MEDICAID, SELFPAY ==
[2024-08-10] MEDS: PROCHLORPERAZINE 10MG TABLET 10 MG PO (08:56)
[2024-08-10] MEDS: DECITABINE IV (09:29)
[2024-08-10] MEDS: SODIUM CHLORIDE 0.9% IV (09:29)
[2024-08-10] MEDS: SODIUM CHLORIDE 0.9% 50ML BAG 50 ML IV (09:29)
[2024-08-10 09:35] VITALS: BP 133/60; PULSE 78; RESP 18; O2SAT 98
[2024-08-10 10:50] VITALS: BP 153/63; PULSE 74; RESP 18; O2SAT 97
== END 2024-08-10 10:50 | disposition home or self-care (01) ==
LOC: INF 08:47
PROVIDERS: PCP Internal Medicine Adolescent Medicine; Visit Provider Internal Medicine Medical Oncology
DX: C90.00 Multiple myeloma not having achieved remission (principal)
CPT/HCPCS: 96413; J0894; Q0164

== ENCOUNTER 2024-08-11 08:42 | Outpatient (CLI) | payer MEDICARE, MEDICAID, SELFPAY ==
[2024-08-11 08:49] VITALS: BP 145/68; PULSE 88; RESP 20; TEMP 36.7; O2SAT 99
[2024-08-11] MEDS: PROCHLORPERAZINE 10MG TABLET 10 MG PO (08:49)
[2024-08-11 09:30] VITALS: BP 124/76; PULSE 84; RESP 20; O2SAT 99
[2024-08-11] MEDS: SODIUM CHLORIDE 0.9% 50ML BAG 50 ML IV (09:30)
[2024-08-11] MEDS: SODIUM CHLORIDE 0.9% IV (09:30)
[2024-08-11] MEDS: DECITABINE IV (09:30)
[2024-08-11] MEDS: SODIUM CHLORIDE 0.9% 10ML FLUSH SYRINGE 10 ML IV (09:37)
[2024-08-11 10:00] VITALS: BP 131/69; PULSE 87; RESP 20; O2SAT 99
[2024-08-11 10:34] VITALS: BP 115/73; PULSE 81; RESP 20; O2SAT 98
== END 2024-08-11 10:47 | disposition home or self-care (01) ==
LOC: INF 08:45
PROVIDERS: PCP Internal Medicine Adolescent Medicine; Visit Provider Internal Medicine Medical Oncology
DX: C90.00 Multiple myeloma not having achieved remission (principal)
CPT/HCPCS: 96413; J0894; Q0164

== ENCOUNTER 2024-08-12 08:31 | Outpatient (CLI) | payer MEDICARE, MEDICAID, SELFPAY ==
[2024-08-12 08:48] VITALS: BP 156/75; PULSE 83; RESP 18; TEMP 36.4; O2SAT 98
[2024-08-12] MEDS: PROCHLORPERAZINE 10MG TABLET 10 MG PO (08:50)
[2024-08-12] MEDS: SODIUM CHLORIDE 0.9% 50ML BAG 50 ML IV (08:50)
[2024-08-12] MEDS: SODIUM CHLORIDE 0.9% 10ML FLUSH SYRINGE 10 ML IV (08:51)
[2024-08-12 09:22] VITALS: BP 139/87; PULSE 81; RESP 18; O2SAT 99
[2024-08-12] MEDS: DECITABINE IV (09:22)
[2024-08-12] MEDS: SODIUM CHLORIDE 0.9% IV (09:22)
[2024-08-12 09:52] VITALS: BP 147/78; PULSE 80; RESP 18; O2SAT 98
[2024-08-12 10:25] VITALS: BP 154/86; PULSE 80; RESP 18; O2SAT 99
== END 2024-08-12 10:30 | disposition home or self-care (01) ==
LOC: INF 08:34
PROVIDERS: PCP Internal Medicine Adolescent Medicine; Visit Provider Internal Medicine Medical Oncology
DX: C90.00 Multiple myeloma not having achieved remission (principal)
CPT/HCPCS: 96413; J0894; Q0164

== ENCOUNTER 2024-08-17 08:00 | Outpatient (CLI) | payer MEDICARE, MEDICAID, SELFPAY ==
[2024-08-17 08:12] VITALS: BMI 69.3
[2024-08-17 08:28] LABS: Basophils % 0.5 % (0.1-2.0); Eosinophils # 0.2 K/mm3 (0.0-0.4); Eosinophils % 11.3 % (0.1-12.0); Hematocrit 29.7 % (42.0-52.0); Hemoglobin 10.1 g/dL (14.1-18.0); Lymphocytes # 0.8 K/mm3 (0.7-4.5); Lymphocytes % 39.4 % (10-50); Mean Corpuscular HGB Conc 34.2 g/dL (31.8-35.4); Mean Corpuscular Hemoglobin 37.4 pg (27.0-31.2); Mean Corpuscular Volume 109.3 fl (80-94); Mean Platelet Volume 10.1 fl (7.4-10.4); Monocytes # 0.1 K/mm3 (0.1-1.0); Monocytes % 3.4 % (1.7-9.3); Neutrophils % 45.3 % (37.0-80.0); Red Blood Count 2.71 M/mm3 (4.60-6.20); Red Cell Distribution Width 14.7 % (11.5-17.5); White Blood Count 2.1 K/mm3 (4.8-10.8)
[2024-08-17 08:44] LABS: Platelet Count 32 K/mm3 (142-424)
== END 2024-08-17 08:20 | disposition home or self-care (01) ==
LOC: INF 08:01
PROVIDERS: PCP Internal Medicine Adolescent Medicine; Visit Provider Internal Medicine Medical Oncology
DX: D46.9 Myelodysplastic syndrome, unspecified (principal)
CPT/HCPCS: 36415; 85025

== ENCOUNTER 2024-08-25 09:22 | Outpatient (CLI) | payer MEDICARE, MEDICAID, SELFPAY ==
[2024-08-25 09:29] VITALS: BMI 31.1
[2024-08-25 09:43] LABS: Basophils % 0.3 % (0.1-2.0); Eosinophils # 0.1 K/mm3 (0.0-0.4); Eosinophils % 8.7 % (0.1-12.0); Hematocrit 29.1 % (42.0-52.0); Lymphocytes # 0.6 K/mm3 (0.7-4.5); Lymphocytes % 46.7 % (10-50); Mean Corpuscular HGB Conc 34.2 g/dL (31.8-35.4); Mean Corpuscular Hemoglobin 37.7 pg (27.0-31.2); Mean Corpuscular Volume 110.2 fl (80-94); Mean Platelet Volume 10.8 fl (7.4-10.4); Monocytes # 0.1 K/mm3 (0.1-1.0); Monocytes % 5.8 % (1.7-9.3); Neutrophils # 0.5 K/mm3 (1.8-7.8); Neutrophils % 38.5 % (37.0-80.0); Red Blood Count 2.65 M/mm3 (4.60-6.20); Red Cell Distribution Width 15.4 % (11.5-17.5); White Blood Count 1.3 K/mm3 (4.8-10.8)
[2024-08-25 09:45] LABS: Platelet Count 22 K/mm3 (142-424)
--- NOTE | 2024-08-25 09:51 | PC.NURSE ---
08/25/24 0935 Pt here for weekly lab check. Venipuncture performed using a butterfly access needle to pt's lt ac x 1 stick, blood drawn. Needle withdrawn and site secured with 2x2 gauze and coban.
== END 2024-08-25 09:45 | disposition home or self-care (01) ==
LOC: INF 09:23
PROVIDERS: PCP Internal Medicine Adolescent Medicine; Visit Provider Internal Medicine Medical Oncology
DX: D46.9 Myelodysplastic syndrome, unspecified (principal)
CPT/HCPCS: 36415; 85025

== ENCOUNTER 2024-09-02 08:30 | Outpatient (CLI) | payer MEDICARE, MEDICAID, SELFPAY ==
[2024-09-02 08:38] VITALS: BMI 31.1
[2024-09-02 08:56] LABS: Basophils % 0.9 % (0.1-2.0); Eosinophils # 0.1 K/mm3 (0.0-0.4); Eosinophils % 6.5 % (0.1-12.0); Hemoglobin 9.6 g/dL (14.1-18.0); Lymphocytes # 0.7 K/mm3 (0.7-4.5); Lymphocytes % 47.2 % (10-50); Mean Corpuscular HGB Conc 34.5 g/dL (31.8-35.4); Mean Corpuscular Hemoglobin 36.9 pg (27.0-31.2); Mean Corpuscular Volume 106.9 fl (80-94); Mean Platelet Volume 10.1 fl (7.4-10.4); Monocytes # 0.1 K/mm3 (0.1-1.0); Monocytes % 4.7 % (1.7-9.3); Neutrophils # 0.6 K/mm3 (1.8-7.8); Neutrophils % 40.7 % (37.0-80.0); Platelet Count 61 K/mm3 (142-424); Red Blood Count 2.62 M/mm3 (4.60-6.20); White Blood Count 1.5 K/mm3 (4.8-10.8)
[2024-09-02 09:10] LABS: Alanine Aminotransferase 15 U/L (12-78); Albumin Level 3.6 g/dl (3.5-5.0); Albumin/Globulin Ratio 1.2 (1.1-1.8); Alkaline Phosphatase 104 U/L (38-126); Aspartate Amino Transferase 22 U/L (17-59); Bilirubin,Total 0.6 mg/dl (0.2-1.3); Blood Urea Nitrogen 20 mg/dl (9-20); Calcium 8.8 mg/dl (8.4-10.2); Carbon Dioxide 24 mmol/L (22.0-30.0); Chloride 106 mmol/L (98-107); Creatinine Clearance Estimated 68 mL/min (50-200); Estimated Glomerular Filt Rate 53 ml/min (>60); GFR (African American) 64 ML/MIN (>60); Globulin 3.1 g/dL (1.3-3.2); Glucose 95 mg/dl (74-100); Sodium 139 mmol/L (136-145); Total Protein,Serum 6.7 g/dl (6.3-8.2)
== END 2024-09-02 08:44 | disposition home or self-care (01) ==
LOC: INF 08:32
PROVIDERS: PCP Internal Medicine Adolescent Medicine; Visit Provider Internal Medicine Medical Oncology
DX: C90.00 Multiple myeloma not having achieved remission (principal)
CPT/HCPCS: 36415; 80053; 85025

== ENCOUNTER 2024-09-06 08:37 | Outpatient (CLI) | payer MEDICARE, MEDICAID, SELFPAY ==
[2024-09-06 08:43] VITALS: BMI 31.4
[2024-09-06 09:01] LABS: Basophils % 0.8 % (0.1-2.0); Eosinophils # 0.1 K/mm3 (0.0-0.4); Eosinophils % 2.9 % (0.1-12.0); Hemoglobin 10.4 g/dL (14.1-18.0); Lymphocytes # 0.8 K/mm3 (0.7-4.5); Lymphocytes % 43.9 % (10-50); Mean Corpuscular HGB Conc 34.8 g/dL (31.8-35.4); Mean Corpuscular Hemoglobin 37.1 pg (27.0-31.2); Mean Corpuscular Volume 106.7 fl (80-94); Mean Platelet Volume 10.2 fl (7.4-10.4); Monocytes # 0.3 K/mm3 (0.1-1.0); Monocytes % 16.7 % (1.7-9.3); Neutrophils # 0.6 K/mm3 (1.8-7.8); Neutrophils % 35.6 % (37.0-80.0); Platelet Count 120 K/mm3 (142-424); Red Blood Count 2.81 M/mm3 (4.60-6.20); Red Cell Distribution Width 14.9 % (11.5-17.5); White Blood Count 1.8 K/mm3 (4.8-10.8)
[2024-09-06] MEDS: PROCHLORPERAZINE 10MG TABLET 10 MG PO (09:11)
[2024-09-06] MEDS: SODIUM CHLORIDE 0.9% IV (09:39)
[2024-09-06] MEDS: DECITABINE IV (09:39)
[2024-09-06 09:45] VITALS: BP 117/58; PULSE 77; RESP 18; TEMP 36.6; O2SAT 94
[2024-09-06] MEDS: SODIUM CHLORIDE 0.9% 50ML BAG 50 ML IV (09:47)
[2024-09-06 14:07] VITALS: BP 133/62; PULSE 75; RESP 18; TEMP 36.7; O2SAT 94
== END 2024-09-06 10:50 | disposition home or self-care (01) ==
LOC: INF 08:39
PROVIDERS: PCP Internal Medicine Adolescent Medicine; Visit Provider Internal Medicine Medical Oncology
DX: D46.9 Myelodysplastic syndrome, unspecified (principal)
CPT/HCPCS: 85025; 96413; J0894; Q0164

== ENCOUNTER 2024-09-07 08:31 | Outpatient (CLI) | payer MEDICARE, MEDICAID, SELFPAY ==
[2024-09-07 08:47] VITALS: BP 100/56; PULSE 61; RESP 18; TEMP 36.6; O2SAT 96
[2024-09-07] MEDS: PROCHLORPERAZINE 10MG TABLET 10 MG PO (08:47)
[2024-09-07] MEDS: SODIUM CHLORIDE 0.9% 10ML FLUSH SYRINGE 10 ML IV (08:52)
[2024-09-07] MEDS: SODIUM CHLORIDE 0.9% 50ML BAG 50 ML IV (08:52)
[2024-09-07 09:18] VITALS: BP 119/59; PULSE 84; RESP 18; O2SAT 97
[2024-09-07] MEDS: SODIUM CHLORIDE 0.9% IV (09:18)
[2024-09-07] MEDS: DECITABINE IV (09:18)
[2024-09-07 09:48] VITALS: BP 114/60; PULSE 75; RESP 18; O2SAT 97
[2024-09-07 10:35] VITALS: BP 121/55; PULSE 78; RESP 18; O2SAT 96
== END 2024-09-07 10:35 | disposition home or self-care (01) ==
LOC: INF 08:34
PROVIDERS: PCP Internal Medicine Adolescent Medicine; Visit Provider Internal Medicine Medical Oncology
DX: D46.9 Myelodysplastic syndrome, unspecified (principal)
CPT/HCPCS: 96413; J0894; Q0164

== ENCOUNTER 2024-09-08 08:38 | Outpatient (CLI) | payer MEDICARE, MEDICAID, SELFPAY ==
[2024-09-08] MEDS: PROCHLORPERAZINE 10MG TABLET 10 MG PO (08:50)
[2024-09-08] MEDS: SODIUM CHLORIDE 0.9% 50ML BAG 50 ML IV (08:55)
[2024-09-08] MEDS: SODIUM CHLORIDE 0.9% IV (09:15)
[2024-09-08] MEDS: DECITABINE IV (09:15)
[2024-09-08 09:20] VITALS: BP 115/60; PULSE 77; RESP 16; TEMP 36.4; O2SAT 96
[2024-09-08 09:35] VITALS: BP 134/72; PULSE 72; RESP 16
[2024-09-08 09:50] VITALS: BP 138/65; PULSE 70; RESP 16
[2024-09-08 10:05] VITALS: BP 132/63; PULSE 76; RESP 16
[2024-09-08 10:20] VITALS: BP 134/57; PULSE 74; RESP 16
== END 2024-09-08 10:35 | disposition home or self-care (01) ==
LOC: INF 08:38
PROVIDERS: PCP Internal Medicine Adolescent Medicine; Visit Provider Internal Medicine Medical Oncology
DX: D46.9 Myelodysplastic syndrome, unspecified (principal)
CPT/HCPCS: 96413; J0894; Q0164

== ENCOUNTER 2024-09-14 09:27 | Outpatient (CLI) | payer MEDICARE, MEDICAID, SELFPAY ==
[2024-09-14 09:40] VITALS: BMI 32.0
--- NOTE | 2024-09-14 09:43 | PC.NURSE ---
venipuncture stick with 23g butterfly needle to RAC. labs drawn, orders placed in computer. needle removed. coban and 2x2s applied. bleeding controlled. pt tolerated well.
[2024-09-14 10:03] LABS: Basophils % 0.5 % (0.1-2.0); Eosinophils # 0.1 K/mm3 (0.0-0.4); Eosinophils % 9.2 % (0.1-12.0); Hematocrit 27.3 % (42.0-52.0); Hemoglobin 9.3 g/dL (14.1-18.0); Lymphocytes # 0.5 K/mm3 (0.7-4.5); Lymphocytes % 34.1 % (10-50); Mean Corpuscular HGB Conc 34.1 g/dL (31.8-35.4); Mean Corpuscular Hemoglobin 36.5 pg (27.0-31.2); Mean Platelet Volume 9.4 fl (7.4-10.4); Monocytes % 3.1 % (1.7-9.3); Neutrophils # 0.7 K/mm3 (1.8-7.8); Neutrophils % 53.1 % (37.0-80.0); Red Blood Count 2.55 M/mm3 (4.60-6.20); Red Cell Distribution Width 14.8 % (11.5-17.5); White Blood Count 1.3 K/mm3 (4.8-10.8)
[2024-09-14 10:06] LABS: Platelet Count 45 K/mm3 (142-424)
== END 2024-09-14 09:45 | disposition home or self-care (01) ==
LOC: INF 09:28
PROVIDERS: PCP Internal Medicine Adolescent Medicine; Visit Provider Internal Medicine Medical Oncology
DX: D46.9 Myelodysplastic syndrome, unspecified (principal)
CPT/HCPCS: 36415; 85025

== ENCOUNTER 2024-09-21 10:05 | Outpatient (CLI) | payer MEDICARE, MEDICAID, SELFPAY ==
[2024-09-21 10:18] VITALS: BMI 31.0
[2024-09-21 10:33] LABS: Basophils % 0.4 % (0.1-2.0); Eosinophils # 0.2 K/mm3 (0.0-0.4); Eosinophils % 12.4 % (0.1-12.0); Hematocrit 28.2 % (42.0-52.0); Hemoglobin 9.5 g/dL (14.1-18.0); Lymphocytes # 0.7 K/mm3 (0.7-4.5); Lymphocytes % 55.6 % (10-50); Mean Corpuscular HGB Conc 33.9 g/dL (31.8-35.4); Mean Corpuscular Hemoglobin 35.7 pg (27.0-31.2); Mean Corpuscular Volume 105.3 fl (80-94); Mean Platelet Volume 10.4 fl (7.4-10.4); Monocytes % 3.2 % (1.7-9.3); Neutrophils # 0.4 K/mm3 (1.8-7.8); Neutrophils % 28.3 % (37.0-80.0); Red Blood Count 2.67 M/mm3 (4.60-6.20); Red Cell Distribution Width 15.7 % (11.5-17.5); White Blood Count 1.3 K/mm3 (4.8-10.8)
[2024-09-21 10:52] LABS: Platelet Count 28 K/mm3 (142-424)
[2024-09-21 10:54] LABS: MANUAL DIFFERENTIAL MANUAL DIFFERENTIAL (MANUAL DIFF)
[2024-09-21 12:26] LABS: Eosinophils % 4 % (0-3); Lymphocytes % 58 % (10-50); Macrocytosis 2+; Monocytes % 2 % (2-9); Neutrophils % 36 % (42-76); Total Cells Counted 50
[2024-09-21 12:27] LABS: Platelet Estimate Marked Decrease
== END 2024-09-21 10:25 | disposition home or self-care (01) ==
LOC: INF 10:06
PROVIDERS: PCP Internal Medicine Adolescent Medicine; Visit Provider Internal Medicine Medical Oncology
DX: D46.9 Myelodysplastic syndrome, unspecified (principal)
CPT/HCPCS: 36415; 85007; 85025

== ENCOUNTER 2024-09-30 08:13 | Outpatient (CLI) | payer MEDICARE, MEDICAID, SELFPAY ==
[2024-09-30 08:46] LABS: Chloride 108 mmol/L (98-107)
[2024-09-30 08:47] LABS: Albumin Level 3.7 g/dl (3.5-5.0); Potassium 3.7 mmoL/L (3.5-5.1); Sodium 134 mmol/L (136-145)
[2024-09-30 08:49] LABS: Alanine Aminotransferase 19 U/L (12-78); Anion Gap 6.7 mEq/L (5-15); Aspartate Amino Transferase 28 U/L (17-59); Blood Urea Nitrogen 21 mg/dl (9-20); Carbon Dioxide 23 mmol/L (22.0-30.0); Estimated Glomerular Filt Rate 49 ml/min (>60); GFR (African American) 59 ML/MIN (>60)
[2024-09-30 08:50] LABS: Albumin/Globulin Ratio 1.2 (1.1-1.8); Alkaline Phosphatase 90 U/L (38-126); Bilirubin,Total 0.4 mg/dl (0.2-1.3); Calcium 8.9 mg/dl (8.4-10.2); Globulin 3.2 g/dL (1.3-3.2); Glucose 138 mg/dl (74-100); Total Protein,Serum 6.9 g/dl (6.3-8.2)
[2024-09-30 09:00] LABS: Hematocrit 27.2 % (42.0-52.0); Lymphocytes % 54.1 % (10-50); Mean Corpuscular HGB Conc 33.1 g/dL (31.8-35.4); Mean Corpuscular Hemoglobin 34.9 pg (27.0-31.2); Mean Corpuscular Volume 105.4 fl (80-94); Mean Platelet Volume 10.5 fl (7.4-10.4); Monocytes % 4.7 % (1.7-9.3); Neutrophils % 33.7 % (37.0-80.0); Platelet Count 70 K/mm3 (142-424); Red Blood Count 2.58 M/mm3 (4.60-6.20); Red Cell Distribution Width 14.3 % (11.5-17.5); White Blood Count 1.7 K/mm3 (4.8-10.8)
[2024-09-30 09:01] LABS: Basophils % 0.6 % (0.1-2.0); Eosinophils % 5.2 % (0.1-12.0)
[2024-09-30 09:03] LABS: Lymphocytes # 0.9 K/mm3 (0.7-4.5); Monocytes # 0.1 K/mm3 (0.1-1.0); Neutrophils # 0.6 K/mm3 (1.8-7.8)
[2024-09-30 09:04] LABS: Eosinophils # 0.1 K/mm3 (0.0-0.4)
[2024-09-30 09:05] LABS: MANUAL DIFFERENTIAL MANUAL DIFFERENTIAL (MANUAL DIFF)
[2024-09-30 11:59] LABS: Lymphocytes % 64 % (10-50); Macrocytosis 1+; Monocytes % 4 % (2-9); Neutrophils % 32 % (42-76); Platelet Estimate Moderate Decrease; Total Cells Counted 25
== END 2024-09-30 08:34 | disposition home or self-care (01) ==
LOC: INF 08:15
PROVIDERS: PCP Internal Medicine Adolescent Medicine; Visit Provider Internal Medicine Medical Oncology
DX: D46.9 Myelodysplastic syndrome, unspecified (principal)
CPT/HCPCS: 36415; 80053; 85007; 85025

== ENCOUNTER 2024-10-15 08:17 | Outpatient (CLI) | payer MEDICARE, MEDICAID, SELFPAY ==
[2024-10-15 08:39] LABS: Eosinophils # 0.2 K/mm3 (0.0-0.4); Eosinophils % 11.2 % (0.1-12.0); Hematocrit 29.5 % (42.0-52.0); Hemoglobin 9.5 g/dL (14.1-18.0); Mean Corpuscular HGB Conc 32.2 g/dL (31.8-35.4); Mean Corpuscular Hemoglobin 34.8 pg (27.0-31.2); Mean Corpuscular Volume 108.1 fl (80-94); Mean Platelet Volume 12.8 fl (7.4-10.4); Monocytes # 0.2 K/mm3 (0.1-1.0); Monocytes % 8.7 % (1.7-9.3); Neutrophils # 0.6 K/mm3 (1.8-7.8); Neutrophils % 29.6 % (37.0-80.0); Red Blood Count 2.73 M/mm3 (4.60-6.20); Red Cell Distribution Width 15.8 % (11.5-17.5); White Blood Count 2.1 K/mm3 (4.8-10.8)
[2024-10-15 08:45] LABS: Albumin Level 3.7 g/dl (3.5-5.0); Chloride 106 mmol/L (98-107); Sodium 138 mmol/L (136-145)
[2024-10-15 08:47] LABS: Blood Urea Nitrogen 16 mg/dl (9-20); Estimated Glomerular Filt Rate 49 ml/min (>60); GFR (African American) 59 ML/MIN (>60)
[2024-10-15 08:48] LABS: Alanine Aminotransferase 14 U/L (12-78); Albumin/Globulin Ratio 1.3 (1.1-1.8); Alkaline Phosphatase 77 U/L (38-126); Aspartate Amino Transferase 25 U/L (17-59); Bilirubin,Total 0.6 mg/dl (0.2-1.3); Calcium 9.2 mg/dl (8.4-10.2); Carbon Dioxide 24 mmol/L (22.0-30.0); Globulin 2.9 g/dL (1.3-3.2); Glucose 109 mg/dl (74-100); Total Protein,Serum 6.6 g/dl (6.3-8.2)
[2024-10-15 08:50] LABS: Platelet Count 44 K/mm3 (142-424)
== END 2024-10-15 08:24 | disposition home or self-care (01) ==
LOC: INF 08:19
PROVIDERS: PCP Internal Medicine Adolescent Medicine; Visit Provider Internal Medicine Medical Oncology
DX: D46.9 Myelodysplastic syndrome, unspecified (principal)
CPT/HCPCS: 36415; 80053; 85025

== ENCOUNTER 2024-10-27 12:13 | Outpatient (CLI) | payer MEDICARE, MEDICAID, SELFPAY ==
[2024-10-27 12:19] VITALS: BMI 31.6
--- NOTE | 2024-10-27 12:30 | PC.NURSE ---
1225 - Labs drawn from left arm using butterfly needle to check CBC per Dr Whitt at this time.
[2024-10-27 12:37] LABS: Basophils % 0.5 % (0.1-2.0); Eosinophils # 0.3 K/mm3 (0.0-0.4); Eosinophils % 16.3 % (0.1-12.0); Hematocrit 28.9 % (42.0-52.0); Hemoglobin 9.3 g/dL (14.1-18.0); Lymphocytes # 0.9 K/mm3 (0.7-4.5); Lymphocytes % 48.4 % (10-50); Mean Corpuscular HGB Conc 32.2 g/dL (31.8-35.4); Mean Corpuscular Hemoglobin 35.1 pg (27.0-31.2); Mean Corpuscular Volume 109.1 fl (80-94); Mean Platelet Volume 10.7 fl (7.4-10.4); Monocytes # 0.2 K/mm3 (0.1-1.0); Monocytes % 8.4 % (1.7-9.3); Neutrophils # 0.5 K/mm3 (1.8-7.8); Neutrophils % 25.9 % (37.0-80.0); Red Blood Count 2.65 M/mm3 (4.60-6.20); Red Cell Distribution Width 15.7 % (11.5-17.5); White Blood Count 1.9 K/mm3 (4.8-10.8)
[2024-10-27 12:38] LABS: Platelet Count 27 K/mm3 (142-424)
== END 2024-10-27 12:27 | disposition home or self-care (01) ==
LOC: LAB 12:15 → INF 12:26
PROVIDERS: PCP Internal Medicine Adolescent Medicine; Visit Provider Internal Medicine Medical Oncology
DX: D46.9 Myelodysplastic syndrome, unspecified (principal)
CPT/HCPCS: 36415; 85025

== ENCOUNTER 2024-11-09 10:16 | Observation (INO) | payer MEDICARE, MEDICAID, SELFPAY ==
[2024-11-09] VITALS (13 sets, daily range): BP systolic 116–167; BP diastolic 60–80; PULSE 77–98; RESP 16–21; TEMP 36.5–37.1; O2SAT 93–98; BMI 31.1; BMI 30.8
--- NOTE | 2024-11-09 10:52 | XR_ITS ---
FINAL REPORT CLINICAL HISTORY: cough, uri COMPARISON: 11/30/2021 FINDINGS: The heart size is normal. The mediastinum is normal. There is no focal infiltrate or edema. There are no pleural effusions. There is no pneumothorax. There is no osseous abnormality. IMPRESSION: No acute cardiopulmonary process Reviewed, Interpreted and Dictated by Shemar Rees MD Transcribed by Monica Conte Authenticated and [facility]
--- NOTE | 2024-11-09 10:53 | HMH.EDGENADL ---
Discharge Plan Disposition Patient Disposition: Admitted Condition: Fair Clinical Impressions Clinical Impression: Neutropenia with fever, Vomiting, Myelodysplastic syndrome Discharge ED Provider: Alva Chen General Adult HPI General Chief complaint: Nausea/Vomiting/Diarrhea Stated complaint: vomiting, weakness Time Seen by Provider: 11/09/24 10:22 Mode of Arrival: Wheelchair Source of Information: Patient Limitations: No Limitations Description of Symptoms (Recalled from ER Triage Doc. by RN): Patient reports nausea and vomiting for 2 days. States he has leukemia and his last treatment was approx 3 months ago. History of Present Illness HPI narrative: Patient is a 79-year-old male presenting with nausea and vomiting. Patient has a history of myelodysplastic syndrome not currently on chemotherapy. Patient is accompanied by his who provides additional history at bedside. She states he has been having increased nausea and vomiting for the past 3 days, intermittent coughing, and progressive weakness. She states last night he felt so bad he laid down on the floor and then was unable to get up. She had to have a family member come over to help get him up and into bed. He denies bloody vomit or bilious vomiting. also states he has had a fever at home. Patient notes normal bowel movements and no difficulty urinating. He denies chest pain, shortness of breath. Patient has abdominal pain that he believes is secondary to vomiting. Related Data Home Medications ?Medication ?Instructions ?Recorded ?Confirmed tamsulosin 0.4 mg capsule (Flomax) 0.8 mg PO HS 07/30/18 11/09/24 escitalopram oxalate 20 mg tablet 20 mg PO DAILY 03/28/23 11/09/24 buspirone 10 mg tablet 10 mg PO QIDP PRN Anxiety 08/14/23 11/09/24 levocetirizine 5 mg tablet 5 mg PO DAILY 06/15/24 11/09/24 amlodipine 5 mg tablet 5 mg PO DAILY 07/28/24 11/09/24 oxycodone-acetaminophen 10 mg-325 1 tab PO Q8HP PRN Moderate Pain 09/02/24 11/09/24 mg tablet (Scale Score 5-6) atorvastatin 40 mg tablet 40 mg PO HS 11/09/24 11/09/24 ketorolac 0.5 % eye drops 1 drp ophthalmic (eye) QID 11/09/24 11/09/24 lactulose 10 gram/15 mL oral 20 g PO DAILYP PRN Constipation 11/09/24 11/09/24 solution ofloxacin 0.3 % eye drops 1 drp ophthalmic (eye) QID 11/09/24 11/09/24 prednisolone acetate 1 % eye 1 drp ophthalmic (eye) QID 11/09/24 11/09/24 drops,suspension Previous Rx's ?Medication ?Instructions ?Recorded omeprazole 20 mg capsule,delayed 20 mg PO DAILY 4 weeks #28 caps 01/15/24 release Allergies Allergy/AdvReac Type Severity Reaction Status Date / Time No Known Allergies Allergy Verified 10/27/24 11:35 [facility] Disclaimer: The information contained in this section may have been updated after the patient was seen, as this information can be updated by other users. Medical History Abnormal findings on diagnostic imaging of heart and coronary circulation History of compression fracture of spine DJD (degenerative joint disease) Chronic back pain MDS (myelodysplastic syndrome) Anxiety BPH (benign prostatic hyperplasia) Kidney stones GERD (gastroesophageal reflux disease) Atrial fibrillation History of hoarseness History of chemotherapy Hypertension Hyperlipidemia Heart murmur Cancer Surgical History History of bone marrow biopsy Family History Other Asthma Cancer Heart attack Stroke Social History Smoking Status: Never smoker alcohol intake: current alcohol intake frequency: 3 or more drinks per day substance use type: denies use current occupational status: retired Travel in the last 8 weeks: None household members: significant other housing: house current occupational exposures/hazards: No caffeine: Yes Have you lived/traveled outside [place] in past 30 days?: No Contact w/someone who lives/traveled outside US past 30 days?: No Exposure to someone with infectious disease in past 14 days?: No Do you have a fever (greater than 100.4 F or 38 C)?: No Have you tested positive for COVID-19: No Exposed to someone with COVID-19 in past 14 days?: No Do you have a sore throat?: No Do you have a cough?: No Do you have any weakness?: No Do you have any diarrhea?: No Are you experiencing any unusual bleeding?: No Do you have any muscle aches/pain?: No Do you have any abdominal pain?: No Are you experiencing loss of taste or smell?: No Other Medical History Have you received the Flu Vaccine for this season: No Have you received the Pneumonia Vaccine: Yes ROS Obtained: Yes All systems reviewed & no additional complaints except as documented Physical Exam General General appearance: alert and in no apparent distress Head Head exam: atraumatic Eye Eye exam: Present EOMI; Absent scleral icterus Neck Neck exam: Present full ROM Chest Chest inspection: Present normal inspection Respiratory Respiratory exam: Present normal lung sounds bilaterally Expanded Respiratory Exam Location: Left: decreased breath sounds, Right: decreased breath sounds and Lower: decreased breath sounds Cardiovascular Cardiovascular exam: Present regular rate and normal rhythm Abdominal Exam Abdominal exam: Present soft, distention and tenderness; Absent guarding Abdominal tenderness: Present diffuse exam: Present deferred Extremities Exam Extremities exam: Present full ROM; Absent tenderness or edema Back Exam Back exam: Present full ROM Neurological Exam Neurological exam: Present alert and oriented X3 Psychiatric Psychiatric exam: Present normal mood Skin Skin exam: Present warm and dry Medical Decision Making Medical Records Medical records reviewed: Yes I reviewed the patient's medical records. Screening: Per USPSTF and CDC recommendations, given the prevalence of disease in our region, it is our hospital?s policy to screen for HIV and viral Hepatitis for all patients aged 18 and over and those with ongoing risk factors. Moose Inquiry Pt receiving controlled substance: No Vital Signs: 11/09/24 10:17 11/09/24 10:30 11/09/24 11:15 Temperature 97.7 F Temperature Source Oral Pulse Rate 95 H 88 Pulse Rate [Radial] 96 H Respiratory Rate 16 Blood Pressure 141/76 H Blood Pressure [Right Arm] 119/60 Blood Pressure Mean Blood Pressure Mean [Right Arm] 79 Blood Pressure Source [Right Arm] Automatic Cuff Blood Pressure Position [Right Arm] Sitting 02 Sat by Pulse Oximetry 93 L 96 96 Oxygen Delivery Method Room Air Room Air Room Air 11/09/24 12:00 11/09/24 12:00 11/09/24 12:31 Temperature Temperature Source Pulse Rate 78 79 84 Pulse Rate [Radial] Respiratory Rate Blood Pressure 116/64 128/67 152/75 H Blood Pressure [Right Arm] Blood Pressure Mean 87 Blood Pressure Mean [Right Arm] Blood Pressure Source [Right Arm] Blood Pressure Position [Right Arm] 02 Sat by Pulse Oximetry 97 97 94 L Oxygen Delivery Method Room Air Room Air Room Air 11/09/24 13:00 11/09/24 13:30 11/09/24 13:41 Temperature Temperature Source Pulse Rate 78 77 98 H Pulse Rate [Radial] Respiratory Rate Blood Pressure 165/79 H 161/78 H 152/79 H Blood Pressure [Right Arm] Blood Pressure Mean Blood Pressure Mean [Right Arm] Blood Pressure Source [Right Arm] Blood Pressure Position [Right Arm] 02 Sat by Pulse Oximetry 97 96 98 Oxygen Delivery Method Room Air Room Air Room Air 11/09/24 14:00 11/09/24 14:30 Temperature Temperature Source Pulse Rate 88 86 Pulse Rate [Radial] Respiratory Rate Blood Pressure 158/78 H 166/68 H Blood Pressure [Right Arm] Blood Pressure Mean 104 96 Blood Pressure Mean [Right Arm] Blood Pressure Source [Right Arm] Blood Pressure Position [Right Arm] 02 Sat by Pulse Oximetry 96 97 Oxygen Delivery Method Room Air Room Air Lab Data Lab results reviewed: Yes I reviewed the patient's lab results. Lab Results 11/09/24 10:28: WBC 1.2 L*, RBC 2.60 L, Hgb 9.1 L, Hct 27.4 L, MCV 105.4 H, MCH 35.0 H, MCHC 33.2, RDW 15.9, Plt Count 23 L*, MPV 13.2 H, Neut % (Auto) 66.3, Lymph % (Auto) 21.6, [place] % (Auto) 10.3 H, Eos % (Auto) 0.0 L, Baso % (Auto) 0.9, Neut # (Auto) 0.8 L*, Lymph # (Auto) 0.3 L, [place] # (Auto) 0.1, Eos # (Auto) 0.0, Baso # (Auto) 0.0, Sodium 137, Potassium 3.8, Chloride 103, Carbon Dioxide 24, Anion Gap 13.8, BUN 26 H, Creatinine 1.20, Estimated Creat Clear 74, Estimated GFR 58 L, Est GFR ( Amer) 71, Glucose 127 H, Calcium 8.8, Total Bilirubin 3.8 H, AST 133 H, ALT 174 H, Alkaline Phosphatase 210 H, Total Protein 6.7, Albumin 3.7, Globulin 3.0, Albumin/Globulin Ratio 1.2, HCV Ab MONIQUE w/Rflx PCR Qn Negative, HIV Ag/Ab Combo Qual Negative 11/09/24 11:00: Urine Color [place], Urine Appearance Clear, Urine pH 6.0, Ur Specific [place] >= 1.030, Urine Protein 2+ A, Urine Glucose (UA) Negative, Urine Ketones Trace, Urine Blood Trace-i, Urine Nitrate Positive A, Urine Bilirubin 3+ A, Urine Urobilinogen >=8.0, Ur Leukocyte Esterase Negative, Urine RBC 3-5, Urine WBC Occasional, Ur Squamous Epith Cells 3-5, Urine Bacteria Trace, Hyaline Casts Occ, Urine Mucus Trace, SARS-CoV-2 (PCR) Not detected, Influenza A Untype (PCR) Not detected, Influenza Type B (PCR) Not detected 11/09/24 10:28 11/09/24 10:28 Orders (Tests/Meds): ED MEDICATIONS Generic Name Dose Route Start Last Admin Trade Name Freq PRN Reason Stop Dose Admin Cefepime HCl 2 gm/ Sodium 100 mls @ 200 mls/hr 11/09/24 13:45 11/09/24 13:56 Chloride IV 11/19/24 13:44 200 mls/hr Q8H CHRISTIAN Administration Discontinued Medications Generic Name Dose Route Start Last Admin Trade Name Freq PRN Reason Stop Dose Admin Lactated Ringer's 1,000 mls @ 999 mls/hr 11/09/24 10:55 11/09/24 11:56 Lactated Ringer's 1000 Ml Bag IV 11/09/24 11:55 999 mls/hr .Q1H1M ONE Administration Iopamidol 75 ml 11/09/24 11:22 11/09/24 11:23 Iopamidol-370 (76%);100ml Bottle IV 11/09/24 11:23 75 ml ONCE ONE Administration Morphine Sulfate 2 mg 11/09/24 13:35 11/09/24 13:37 Morphine 2mg/Ml Syringe IV 11/09/24 13:36 2 mg ONCE ONE Administration Sodium Chloride 10 ml 11/09/24 11:22 11/09/24 11:23 Sodium Chloride 0.9% 10ml Syr (Rad Only) IV 11/09/24 11:23 10 ml ONCE ONE Administration ORDERS Category Date Time Status CT abdomen pelvis w con Stat Cat Scan 11/09/24 10:54 Completed CXR --portable [XR chest portable] Stat Exams 11/09/24 10:52 Completed CBC w/Auto Diff [Complete Blood Count Auto Diff] Stat Lab 11/09/24 10:28 Completed CMP [Comprehensive Metabolic Panel] Stat Lab 11/09/24 10:28 Completed HIV Combo Stat Lab 11/09/24 10:28 Completed Hepatitis C Ab Qual. W/ RFX Stat Lab 11/09/24 10:28 Completed Rapid PCR Covid and Flu A/B Stat Lab 11/09/24 11:00 Completed Urinalysis and Microscopic Stat Lab 11/09/24 11:00 Completed Blood Culture Stat Micro 11/09/24 13:50 Received Urine Culture Stat Micro 11/09/24 11:00 Received Medical Decision Narrative: In summary, patient is a 79-year-old male presenting with nausea and vomiting. Given patient's history, differential diagnosis includes but is not limited to, neutropenic fever, sepsis, viral vs bacterial gastroenteritis, cholecystitis, diverticulitis, UTI, among others. Patient with evaluated with CBC, CMP, urinalysis, blood cultures, COVID/flu swab, CXR, CT abdomen/pelvis with IV contrast. Patient treated with IV fluids, morphine, cefepime. Labs significant for leukopenia 1.2, absolute neutrophil 0.8, slight anemia with hemoglobin of 9.1 and thrombocytopenia at 23. CMP negative for elevated bilirubin and LFTs. Urinalysis with 3+ bilirubin, proteinuria and no evidence of infection. CXR personally reviewed by me and negative for acute consolidation, pleural effusion. CT abdomen/pelvis reviewed and significant for intra and extrahepatic duct dilation without evidence of gallstones, no diverticulitis or other surgical process noted. Based on neutropenia, blood cultures drawn and patient treated with IV cefepime. Patient has had multiple days of nausea and vomiting and having difficulty taking care of him at home. I spoke with his oncologist, Dr. Whitt who is in agreement with the workup at this time. Due to concern of patient worsening at home and pending blood cultures, I spoke with the hospitalist who has agreed to bring the patient for further management. Patient and family in agreement with this plan. Alva Chen MD PGY-3, Emergency Medicine Critical Care Critical Care Time Critical Care Time: No
--- NOTE | 2024-11-09 10:54 | CT_ITS ---
FINAL REPORT TECHNIQUE: After the administration of intravenous contrast, axial images were obtained through the abdomen and pelvis by computed tomography. The study was performed with techniques to keep radiation dose as low as reasonably achievable, (ALARA). Individual dose reduction techniques using automated exposure control or adjustment of mA and/or kV according to the patient's size were employed. CLINICAL HISTORY: Diffuse tenderness, myelodysplastic syndrome COMPARISON: 06/16/2024 FINDINGS: Abdomen: The lung bases are clear. The liver parenchyma is homogeneous. There is mild intrahepatic and extrahepatic ductal dilatation. The gallbladder is present. The spleen, pancreas, and adrenals appear unremarkable. Small nonobstructing stones are seen in the lower pole of the right renal collecting system. There are dense vascular calcifications within the abdominal aorta and iliac vessels. There is no free fluid or adenopathy. Pelvis: The appendix is unremarkable. There are tiny diverticulum arising from the left posterolateral margin of the urinary bladder well seen on image 113 of series 3. There is no free fluid or adenopathy. IMPRESSION: Stones in the lower pole of the right kidney. Mild intrahepatic and extrahepatic ductal dilatation. Correlate with lab values. Reviewed, Interpreted and Dictated by Shemar Rees MD Transcribed by Fern Flores Authenticated and [facility]
[2024-11-09 11:01] LABS: Basophils % 0.9 % (0.1-2.0); Hematocrit 27.4 % (42.0-52.0); Hemoglobin 9.1 g/dL (14.1-18.0); Lymphocytes # 0.3 K/mm3 (0.7-4.5); Lymphocytes % 21.6 % (10-50); Mean Corpuscular HGB Conc 33.2 g/dL (31.8-35.4); Mean Corpuscular Volume 105.4 fl (80-94); Mean Platelet Volume 13.2 fl (7.4-10.4); Monocytes # 0.1 K/mm3 (0.1-1.0); Monocytes % 10.3 % (1.7-9.3); Neutrophils # 0.8 K/mm3 (1.8-7.8); Neutrophils % 66.3 % (37.0-80.0); Red Cell Distribution Width 15.9 % (11.5-17.5); White Blood Count 1.2 K/mm3 (4.8-10.8)
--- NOTE | 2024-11-09 11:01 | PC.NURSE ---
UA sent to lab
[2024-11-09 11:04] LABS: Coronavirus 19, PCR Not Detected (NotDetected); Influenza A, PCR Not Detected (NotDetected); Influenza B, PCR Not Detected (NotDetected); Microscopic, Urine URINE MICROSCOPIC (MICROSCOPIC)
[2024-11-09 11:06] LABS: Alanine Aminotransferase 174 U/L (12-78); Albumin Level 3.7 g/dl (3.5-5.0); Albumin/Globulin Ratio 1.2 (1.1-1.8); Alkaline Phosphatase 210 U/L (38-126); Anion Gap 13.8 mEq/L (5-15); Aspartate Amino Transferase 133 U/L (17-59); Bilirubin,Total 3.8 mg/dl (0.2-1.3); Blood Urea Nitrogen 26 mg/dl (9-20); Calcium 8.8 mg/dl (8.4-10.2); Carbon Dioxide 24 mmol/L (22.0-30.0); Chloride 103 mmol/L (98-107); Creatinine Clearance Estimated 74 mL/min (50-200); Estimated Glomerular Filt Rate 58 ml/min (>60); GFR (African American) 71 ML/MIN (>60); Glucose 127 mg/dl (74-100); Platelet Count 23 K/mm3 (142-424); Potassium 3.8 mmoL/L (3.5-5.1); Sodium 137 mmol/L (136-145); Total Protein,Serum 6.7 g/dl (6.3-8.2)
--- NOTE | 2024-11-09 11:07 | PC.NURSE ---
CRITICAL PLATELET COUNT 23, PT NAME AND R/V. DR SPRAGUE NOTIFIED. NO NEW ORDERS
[2024-11-09 11:08] LABS: Appearance,Urine CLEAR (Clear); Blood, Urine TRACE-I (Negative); Color,Urine ORANGE (Yellow); Glucose,Urine (UA) Negative (Negative); Ketones,Urine TRACE (Negative); Leukocyte Esterase,Urine Negative (Negative); Nitrate,Urine POSITIVE (Negative); Protein,Urine 2+ (Negative); Specific Gravity, Urine >= 1.030 (1.005-1.030); Urobilinogen,Urine >=8.0 EU/dl (0.2)
[2024-11-09 11:13] LABS: Bilirubin,Urine 3+ (Negative)
[2024-11-09 11:17] LABS: Bacteria,Urine Trace /lpf; Hyaline Casts,Urine OCC #/lpf (0); Mucus,Urine Trace /lpf; WBC,Urine Occasional #/hpf (0-3)
[2024-11-09] MEDS: IOPAMIDOL-370 (76%);100ML BOTTLE 75 ML IV (11:23)
[2024-11-09] MEDS: SODIUM CHLORIDE 0.9% 10ML SYR (RAD ONLY) 10 ML IV (11:23)
--- NOTE | 2024-11-09 11:29 | PC.NURSE ---
nani recio speaking with at this time
[2024-11-09 11:44] LABS: HIV Combo NEGATIVE (Negative)
[2024-11-09 11:52] LABS: Hepatitis C Ab Qual. W/ RFX NEGATIVE (Negative)
[2024-11-09] MEDS: LACTATED RINGERS 1000ML 1,000 ML 999 ML IV (11:56)
--- NOTE | 2024-11-09 11:58 | PC.NURSE ---
I rounded on the pt. no new complaints at this time. no needs voiced. call weaver in reach.
[2024-11-09] MEDS: MORPHINE 2MG/ML SYRINGE 2 MG IV (13:37)
--- NOTE | 2024-11-09 13:47 | PC.NURSE ---
1 set of blood cultures sent to the lab
[2024-11-09] MEDS: CEFEPIME HCL 2 GM in 0.9 % SODIUM CHLORIDE 100 ML IV ×2 (13:56→23:21)
--- NOTE | 2024-11-09 14:33 | PC.NURSE ---
Report given to JUDIE Caldwell on Med Surg.
--- NOTE | 2024-11-09 14:51 | PC.NURSE ---
arrived by w/c from ED
[2024-11-09] MEDS: LACTATED RINGERS 1000ML 1,000 ML 75 ML IV (16:31)
[2024-11-09] MEDS: ACETAMINOPHEN 325MG TAB 650 MG PO (16:31)
[2024-11-09] MEDS: ONDANSETRON 4MG/2ML VIAL 4 MG IV (16:31)
--- NOTE | 2024-11-09 17:24 | PC.NURSE ---
pt resting supine in bed with SCDS in place. LR @75. pt a&ox4. tolerating ra well with sats >90%. complained of pain and nausea once this shift and was treated per mar. tolerating regular diet well. at bedside. no needs or complaints at this time. call light within reach.
--- NOTE | 2024-11-09 18:50 | EXP.HP ---
History of Present Illness *Admission Date: 11/09/24 *Reason for visit:: Abdominal pain, nausea/vomiting *History of present illness: Glenn Marti is a 79-year-old male with a medical history significant for myelodysplastic syndrome (recently discontinued chemotherapy due to side effects and treatment failure), hypertension, hyperlipidemia, anxiety/depression, GERD, chronic low back pain who presents with nausea/vomiting and abdominal pain. Patient states started about 3 days ago when he began having nighttime nausea/vomiting. He now endorse both right and left upper quadrant abdominal pain. Denies hematemesis, hematochezia. Endorses normal bowel movements, urinary symptoms. Workup in the ED significant for CT abdomen/pelvis revealing intra and extrahepatic ductal dilatation with transaminitis. Given multiple comorbidities and physical weakness from nausea/vomiting, patient will be admitted for further evaluation and management of transaminitis and concomitant symptoms. [facility] Disclaimer: The information contained in this section may have been updated after the patient was seen, as this information can be updated by other users. Medical History Abnormal findings on diagnostic imaging of heart and coronary circulation History of compression fracture of spine DJD (degenerative joint disease) Chronic back pain MDS (myelodysplastic syndrome) Anxiety BPH (benign prostatic hyperplasia) Kidney stones GERD (gastroesophageal reflux disease) Atrial fibrillation History of hoarseness History of chemotherapy Hypertension Hyperlipidemia Heart murmur Cancer Surgical History History of bone marrow biopsy Family History Other Asthma Cancer Heart attack Stroke Social History Smoking Status: Never smoker alcohol intake: current alcohol intake frequency: 3 or more drinks per day substance use type: denies use current occupational status: retired Travel in the last 8 weeks: None household members: significant other housing: house current occupational exposures/hazards: No caffeine: Yes Have you lived/traveled outside [place] in past 30 days?: No Contact w/someone who lives/traveled outside US past 30 days?: No Exposure to someone with infectious disease in past 14 days?: No Do you have a fever (greater than 100.4 F or 38 C)?: No Have you tested positive for COVID-19: No Exposed to someone with COVID-19 in past 14 days?: No Do you have a sore throat?: No Do you have a cough?: No Do you have any weakness?: No Do you have any diarrhea?: No Are you experiencing any unusual bleeding?: No Do you have any muscle aches/pain?: No Do you have any abdominal pain?: No Are you experiencing loss of taste or smell?: No Other Medical History Have you received the Flu Vaccine for this season: Yes Have you received the Pneumonia Vaccine: Yes Meds Home Medications and Allergies Home Medications ?Medication ?Instructions ?Recorded ?Confirmed ?Type tamsulosin 0.4 mg capsule (Flomax) 0.8 mg PO HS 07/30/18 11/09/24 History escitalopram oxalate 20 mg tablet 20 mg PO DAILY 03/28/23 11/09/24 History buspirone 10 mg tablet 10 mg PO QIDP PRN Anxiety 08/14/23 11/09/24 History omeprazole 20 mg capsule,delayed 20 mg PO DAILY 4 weeks #28 caps 01/15/24 11/09/24 Rx release levocetirizine 5 mg tablet 5 mg PO DAILY 06/15/24 11/09/24 History amlodipine 5 mg tablet 5 mg PO DAILY 07/28/24 11/09/24 History oxycodone-acetaminophen 10 mg-325 1 tab PO Q8HP PRN Moderate Pain 09/02/24 11/09/24 History mg tablet (Scale Score 5-6) atorvastatin 40 mg tablet 40 mg PO HS 11/09/24 11/09/24 History ketorolac 0.5 % eye drops 1 drp ophthalmic (eye) QID 11/09/24 11/09/24 History lactulose 10 gram/15 mL oral 20 g PO DAILYP PRN Constipation 11/09/24 11/09/24 History solution ofloxacin 0.3 % eye drops 1 drp ophthalmic (eye) QID 11/09/24 11/09/24 History prednisolone acetate 1 % eye 1 drp ophthalmic (eye) QID 11/09/24 11/09/24 History drops,suspension New Prescriptions to Start Prescriptions: Allergies Allergy/AdvReac Type Severity Reaction Status Date / Time No Known Allergies Allergy Verified 10/27/24 11:35 Exam Data for Last 24 hours Vital signs and Labs for Last 24 Hours: Temp Pulse Resp BP Pulse Ox O2 Del Method 97.8 F 84 21 167/80 H 95 Room Air 11/09/24 15:11/09/24 15:11/09/24 15:11/09/24 15:11/09/24 15:11/09/24 17:00 Laboratory Results - last 24 hr 11/09/24 10:28: WBC 1.2 L*, RBC 2.60 L, Hgb 9.1 L, Hct 27.4 L, MCV 105.4 H, MCH 35.0 H, MCHC 33.2, RDW 15.9, Plt Count 23 L*, MPV 13.2 H, Neut % (Auto) 66.3, Lymph % (Auto) 21.6, [place] % (Auto) 10.3 H, Eos % (Auto) 0.0 L, Baso % (Auto) 0.9, Neut # (Auto) 0.8 L*, Lymph # (Auto) 0.3 L, [place] # (Auto) 0.1, Eos # (Auto) 0.0, Baso # (Auto) 0.0, Sodium 137, Potassium 3.8, Chloride 103, Carbon Dioxide 24, Anion Gap 13.8, BUN 26 H, Creatinine 1.20, Estimated Creat Clear 74, Estimated GFR 58 L, Est GFR ( Amer) 71, Glucose 127 H, Calcium 8.8, Total Bilirubin 3.8 H, AST 133 H, ALT 174 H, Alkaline Phosphatase 210 H, Total Protein 6.7, Albumin 3.7, Globulin 3.0, Albumin/Globulin Ratio 1.2, HCV Ab MONIQUE w/Rflx PCR Qn Negative, HIV Ag/Ab Combo Qual Negative 11/09/24 11:00: Urine Color [place], Urine Appearance Clear, Urine pH 6.0, Ur Specific [place] >= 1.030, Urine Protein 2+ A, Urine Glucose (UA) Negative, Urine Ketones Trace, Urine Blood Trace-i, Urine Nitrate Positive A, Urine Bilirubin 3+ A, Urine Urobilinogen >=8.0, Ur Leukocyte Esterase Negative, Urine RBC 3-5, Urine WBC Occasional, Ur Squamous Epith Cells 3-5, Urine Bacteria Trace, Hyaline Casts Occ, Urine Mucus Trace, SARS-CoV-2 (PCR) Not detected, Influenza A Untype (PCR) Not detected, Influenza Type B (PCR) Not detected I & O for Last 24 hours: Intake & Output 11/06/24 11/07/24 11/08/24 11/09/24 23:59 23:59 23:59 23:59 Intake Total 50 / 50 Output Total 0 / 0 Balance 50 / 50 Weight 103.221 kg Constitutional Constitutional: no acute distress *Routine HEENT Exam Head: Present normocephalic Eye: Present EOMI and PERRL ENT: Present mucous membranes moist *Routine Neck Exam Neck: Present supple; Absent lymphadenopathy *Routine Respiratory Exam Respiratory: Present CTA bilaterally *Routine Cardiovascular Exam Cardiovascular: Present RRR *Routine Abdominal Exam Abdominal: Present soft and normoactive bowel sounds; Absent tenderness Comments: Right upper quadrant tenderness to palpation with positive Martínez sign. No peritoneal signs. *Routine Rectal Exam Rectal:: deferred *Routine Genitalia Exam Genitalia:: deferred *Routine Extremities Exam Extremities: Absent cyanosis, clubbing or edema *Routine Skin Exam Skin: Present warm; Absent rash *Routine Neurological Exam Neurological: Present alert and oriented X3 Assessment and Plan *Assessment and plan (1) Myelodysplastic syndrome: Status: Acute Category: Medical Code(s): D46.9 - Myelodysplastic syndrome, unspecified (2) Vomiting: Status: Acute Qualifiers: Nausea presence: with nausea Vomiting type: unspecified Qualified Code(s): R11.2 - Nausea with vomiting, unspecified Category: Medical Code(s): R11.10 - Vomiting, unspecified Plan Glenn Marti is a 79-year-old male with a medical history significant for myelodysplastic syndrome (recently discontinued chemotherapy due to side effects and treatment failure), hypertension, hyperlipidemia, anxiety/depression, GERD, chronic low back pain who presents with nausea/vomiting and abdominal pain. Patient states started about 3 days ago when he began having nighttime nausea/vomiting. He now endorse both right and left upper quadrant abdominal pain. Denies hematemesis, hematochezia. Endorses normal bowel movements, urinary symptoms. Workup in the ED significant for CT abdomen/pelvis revealing intra and extrahepatic ductal dilatation with transaminitis. Given multiple comorbidities and physical weakness from nausea/vomiting, patient will be admitted for further evaluation and management of transaminitis and concomitant symptoms. #RUQ abdominal pain #Transaminitis #Intra/extrahepatic ductal dilatation ? Presented with nausea/vomiting, abdominal pain. ? CT abdomen revealed intra/extrahepatic ductal dilatation with AST/ALT/ALP acutely elevated 133/174/210. Total bilirubin 3.8. ? Findings very concerning for hepatic/ductal pathology. ? Follow-up RUQ ultrasound tomorrow morning. ? Follow-up direct bilirubin, hepatitis panel. ? Continue cefepime for now. Follow-up blood cultures. ? Zofran as needed for nausea/vomiting. ? N.p.o. at midnight. #Nephrolithiasis ? CT abdomen/pelvis revealed stones in the right lower pole kidney. Seems to be nonobstructing at this point. ? Continue home tamsulosin. Chronic medical problems: #Myelodysplastic syndrome #Leukopenia, thrombocytopenia, anemia ? Initial WBC 1.2, platelets 23, hemoglobin 9.1. Consistent with chronic findings. ? Unfortunately due to treatment failure and side effects, chemotherapy was withdrawn a few months ago. Follows with Dr. Whitt. #Hypertension ? Resume home amlodipine. #Hyperlipidemia ? Resume home statin. #Anxiety/depression ? Resume home citalopram. BuSpar as needed. #GERD ? Resume home PPI. #BPH ? Resume home tamsulosin. DNR/DNI SCDs
[2024-11-09] MEDS: OXYCODONE 10MG W/APAP 325MG TABLET 1 EACH PO (19:26)
[2024-11-09] MEDS: BUSPIRONE HCL 10 MG TABLET PO (20:07)
[2024-11-09] MEDS: BACLOFEN 10MG TABLET 10 MG PO (20:07)
[2024-11-09] MEDS: PANTOPRAZOLE 40MG TABLET 40 MG PO (20:07)
[2024-11-09] MEDS: TAMSULOSIN 0.4MG CAPSULE 0.8 MG PO (20:10)
[2024-11-09 21:33] LABS: Bilirubin,Direct 2.5 mg/dl (0.0-0.4)
[2024-11-10] VITALS (10 sets, daily range): BP systolic 132–153; BP diastolic 53–79; PULSE 78–95; RESP 18–20; TEMP 36.4–37.6; O2SAT 94–98; BMI 30.9
--- NOTE | 2024-11-10 04:40 | PC.NURSE ---
Pt A&OX4 and has tolerated room air. Pt reports no n/v this shift and that he is feeling much better. He did complain of back pain once and was medicated per MAR. He has ambulated to the bathroom with standby assist. He has remained NPO since midnight. Currently asleep with call light within reach.
[2024-11-10] MEDS: CEFEPIME HCL 2 GM in 0.9 % SODIUM CHLORIDE 100 ML IV ×2 (05:51→15:09)
[2024-11-10] MEDS: LACTATED RINGERS 1000ML 1,000 ML 75 ML IV (05:51)
--- NOTE | 2024-11-10 06:00 | US_ITS ---
FINAL REPORT CLINICAL HISTORY: Transaminitis, intra/extrahepatic ductal dilatatio COMPARISON: None FINDINGS: Sonographic images of the right upper quadrant were obtained. The pancreas is obscured. There is fatty filtration of the liver. The gallbladder appears normal without evidence of gallstones. The duct is dilated measuring 9 mm. Limited images of the right kidney are unremarkable. IMPRESSION: Mild ductal dilatation without evidence of gallstones. Correlate with lab values. Reviewed, Interpreted and Dictated by Shemar Rees MD Transcribed by Fern Flores Authenticated and [facility]
--- NOTE | 2024-11-10 07:31 | HMH.PHAINT1 ---
Pharmacy Intervention Comments: MEDICATION RECONCILIATION COMPLETED ON PATIENT USING EXTERNAL FILL HISTORY FROM PHARMACY AND LISTS FROM ONCOLOGY/CARDIOLOGY OFFICES. -JESÚS FRANCED
[2024-11-10 07:36] LABS: Basophils % 1.2 % (0.1-2.0); Eosinophils % 1.2 % (0.1-12.0); Hematocrit 24.6 % (42.0-52.0); Hemoglobin 8.2 g/dL (14.1-18.0); Lymphocytes # 0.3 K/mm3 (0.7-4.5); Mean Corpuscular HGB Conc 33.3 g/dL (31.8-35.4); Mean Corpuscular Hemoglobin 35.7 pg (27.0-31.2); Mean Platelet Volume 14.1 fl (7.4-10.4); Monocytes # 0.1 K/mm3 (0.1-1.0); Monocytes % 15.7 % (1.7-9.3); Neutrophils # 0.3 K/mm3 (1.8-7.8); Neutrophils % 36.1 % (37.0-80.0); Red Cell Distribution Width 15.9 % (11.5-17.5)
[2024-11-10 07:43] LABS: Platelet Count 16 K/mm3 (142-424); White Blood Count 0.8 K/mm3 (4.8-10.8)
[2024-11-10 07:44] LABS: MANUAL DIFFERENTIAL MANUAL DIFFERENTIAL (MANUAL DIFF)
[2024-11-10 07:50] LABS: Alanine Aminotransferase 117 U/L (12-78); Albumin Level 3.1 g/dl (3.5-5.0); Albumin/Globulin Ratio 1.1 (1.1-1.8); Alkaline Phosphatase 191 U/L (38-126); Anion Gap 9.5 mEq/L (5-15); Aspartate Amino Transferase 84 U/L (17-59); Bilirubin,Total 1.9 mg/dl (0.2-1.3); Blood Urea Nitrogen 23 mg/dl (9-20); Calcium 8.4 mg/dl (8.4-10.2); Carbon Dioxide 25 mmol/L (22.0-30.0); Chloride 104 mmol/L (98-107); Creatinine Clearance Estimated 88 mL/min (50-200); Estimated Glomerular Filt Rate 72 ml/min (>60); GFR (African American) 87 ML/MIN (>60); Globulin 2.8 g/dL (1.3-3.2); Glucose 98 mg/dl (74-100); Magnesium 1.8 mg/dl (1.6-2.3); Potassium 3.5 mmoL/L (3.5-5.1); Sodium 135 mmol/L (136-145); Total Protein,Serum 5.9 g/dl (6.3-8.2)
[2024-11-10] MEDS: AMLODIPINE 5MG TABLET 5 MG PO (08:36)
[2024-11-10] MEDS: CITALOPRAM 40MG TABLET 40 MG PO (08:36)
[2024-11-10] MEDS: LORATADINE 10MG TABLET 10 MG PO (08:36)
[2024-11-10 10:28] LABS: Adenovirus,PCR Not Detected (NotDetected); Bordetella Pertussis Not Detected (NotDetected); Chlamydophila Pneumoniae, PCR Not Detected (NotDetected); Coronavirus 19, PCR Not Detected (NotDetected); Coronavirus 229E Not Detected (NotDetected); Coronavirus NL63 Not Detected (NotDetected); Coronavirus OC43 Not Detected (NotDetected); Coronovirus HKU1,PCR Not Detected (NotDetected); Human Metapneumovirus Not Detected (NotDetected); Influenza A, PCR Not Detected (NotDetected); Influenza AH1, 2009 Not Detected (NotDetected); Influenza AH1, PCR Not Detected (NotDetected); Influenza AH3,PCR Not Detected (NotDetected); Influenza B, PCR Not Detected (NotDetected); Mycoplasma Pneumoniae, PCR Not Detected (NotDetected); Parainfluenza 1, PCR Not Detected (NotDetected); Parainfluenza 2, PCR Not Detected (NotDetected); Parainfluenza 3, PCR Not Detected (NotDetected); Parainfluenza 4, PCR Not Detected (NotDetected); Respiratory Syncytial Virus Not Detected (NotDetected); Rhinovirus/Enterovirus Not Detected (NotDetected)
[2024-11-10 10:46] LABS: Lymphocytes % 48 % (10-50); Macrocytosis 2+; Monocytes % 12 % (2-9); Neutrophils % 40 % (42-76); Platelet Estimate Marked Decrease; Total Cells Counted 25
[2024-11-10] MEDS: MAGNESIUM SULFATE IN WATER 2 GM/50 ML PIGGYBACK IV (13:14)
[2024-11-10] MEDS: POTASSIUM CHLORIDE 20MEQ TAB 40 MEQ PO ×2 (13:14→16:25)
--- NOTE | 2024-11-10 14:02 | P.DS_ITS ---
General Admission date:: 11/09/24 HPI HPI HPI: Glenn Marti is a 79-year-old male with a medical history significant for myelodysplastic syndrome (recently discontinued chemotherapy due to side effects and treatment failure), hypertension, hyperlipidemia, anxiety/depression, GERD, chronic low back pain who presents with nausea/vomiting and abdominal pain. Patient states started about 3 days ago when he began having nighttime nause a/vomiting. He now endorse both right and left upper quadrant abdominal pain. Denies hematemesis, hematochezia. Endorses normal bowel movements, urinary symptoms. Workup in the ED significant for CT abdomen/pelvis revealing intra and extrahepatic ductal dilatation with transaminitis. Given multiple comorbidities and physical weakness from nausea/vomiting, patient will be admitted for further evaluation and management of transaminitis and concomitant symptoms. Hospital Course Hospital Course Hospital Course: Glenn Marti is a 79-year-old male with a medical history significant for myelodysplastic syndrome (recently discontinued chemotherapy due to side effects and treatment failure), hypertension, hyperlipidemia, anxiety/depression, GERD, chronic low back pain who presents with nausea/vomiting and abdominal pain. Patient states started about 3 days ago when he began having nighttime nausea/vomiting. He now endorse both right and left upper quadrant abdominal pain. Denies hematemesis, hematochezia. Endorses normal bowel movements, urinary symptoms. Workup in the ED significant for CT abdomen/pelvis revealing intra and extrahepatic ductal dilatation with transaminitis. Given multiple comorbidities and physical weakness from nausea/vomiting, patient will be admitted for further evaluation and management of transaminitis and concomitant symptoms. #RUQ abdominal pain #Transaminitis #Intra/extrahepatic ductal dilatation ? Presented with nausea/vomiting, abdominal pain. ? CT abdomen revealed intra/extrahepatic ductal dilatation with AST/ALT/ALP acutely elevated 133/174/210. Total bilirubin 3.8. ? Findings very concerning for hepatic/ductal pathology. - Gallbladder ultrasound revealed mild to CBD ductal dilatation without gallstones. ? Patient's symptoms and LFTs significantly improved in the second day. After discussion with patient, MRCP will be planned outpatient tomorrow. ? Patient tolerating oral intake appropriately. No signs of sepsis. #Nephrolithiasis ? CT abdomen/pelvis revealed stones in the right lower pole kidney. Seems to be nonobstructing at this point. ? Continue home tamsulosin. #Myelodysplastic syndrome # Pancytopenia ? Initial WBC 1.2, platelets 23, hemoglobin 9.1. Consistent with chronic findings. ? Unfortunately due to treatment failure and side effects, chemotherapy was withdrawn a few months ago. Follows with Dr. Whitt. ? Platelets did dip to 16, requiring 1 unit platelet transfusion. Will follow- up with Dr. Whitt tomorrow. #Hypertension ? Resume home amlodipine. #Hyperlipidemia ? Resume home statin. #Anxiety/depression ? Resume home citalopram. BuSpar as needed. #GERD ? Resume home PPI. #BPH ? Resume home tamsulosin. Exam Data for Last 24 hours Vital signs and Labs for Last 24 Hours: Temp Pulse Resp BP Pulse Ox O2 Del Method 99.0 F 91 H 20 143/65 H 96 Room Air 11/10/24 13:05 11/10/24 13:05 11/10/24 13:05 11/10/24 13:05 11/10/24 13:05 11/10/24 11:00 Laboratory Results - last 24 hr 11/09/24 10:28: Direct Bilirubin 2.5 H 11/10/24 06:58: WBC 0.8 L* D, RBC 2.30 L, Hgb 8.2 L, Hct 24.6 L, MCV 107.0 H, MCH 35.7 H, MCHC 33.3, RDW 15.9, Plt Count 16 L* D, MPV 14.1 H, Neut % (Auto) 36.1 L, Lymph % (Auto) 41.0, [place] % (Auto) 15.7 H, Eos % (Auto) 1.2, Baso % (Auto) 1.2, Neut # (Auto) 0.3 L*, Lymph # (Auto) 0.3 L, [place] # (Auto) 0.1, Eos # (Auto) 0.0, Baso # (Auto) 0.0, Total Counted 25, Neutrophils % (Manual) 40 L, Lymphocytes % (Manual) 48, Monocytes % (Manual) 12 H, Platelet Estimate Marked decrease, Macrocytosis 2+, Sodium 135 L, Potassium 3.5, Chloride 104, Carbon Dioxide 25, Anion Gap 9.5, BUN 23 H, Creatinine 1.00, Estimated Creat Clear 88, Estimated GFR 72, Est GFR ( Amer) 87 D, Glucose 98 D, Calcium 8.4, Magnesium 1.8, Total Bilirubin 1.9 H, AST 84 H D, ALT 117 H D, Alkaline Phosphatase 191 H, Total Protein 5.9 L, Albumin 3.1 L D, Globulin 2.8, Albumin/Globulin Ratio 1.1 11/10/24 08:12: Blood Type O Positive 11/10/24 10:22: Chlamy pneumoniae PCR Not detected, Adenovirus (PCR) Not detected, B. pertussis DNA (PCR) Not detected, Coronavirus OC43 (PCR) Not dete cted, Coronavirus HKU1 (PCR) Not detected, Coronavirus 229E (PCR) Not detected, SARS-CoV-2 (PCR) Not detected, Coronavirus NL63 (PCR) Not detected, Human Metapneumovir PCR Not detected, Influenza A (H1) PCR Not detected, Influ A (H1N1/09) PCR Not detected, Influenza A (H3) PCR Not detected, Influenza Type A (PCR) Not detected, Influenza Type B (PCR) Not detected, M. pneumoniae (PCR) Not detected, Parainfluenza 1 (PCR) Not detected, Parainfluenza 2 (PCR) Not detected, Parainfluenza 3 (PCR) Not detected, Parainfluenza 4 (PCR) Not detected, RSV (PCR) Not detected, Entero/Rhino (PCR) Not detected I & O for Last 24 hours: Intake & Output 11/07/24 11/08/24 11/09/24 11/10/24 23:59 23:59 23:59 23:59 Intake Total 50 / 750 2160 / 2160 Output Total 0 / 500 1150 / 1150 Balance 50 / 250 1010 / 1010 Weight 103.221 kg 103.782 kg Microbiology Reports for the Last 24 Hours: Microbiology 11/09/24 13:50 Blood Blood Culture - Preliminary NO GROWTH AFTER 24 HOURS 11/09/24 13:45 Blood Blood Culture - Preliminary NO GROWTH AFTER 24 HOURS Constitutional Constitutional: no acute distress *Routine HEENT Exam Head: Present normocephalic Eye: Present EOMI and PERRL ENT: Present mucous membranes moist *Routine Neck Exam Neck: Present supple; Absent lymphadenopathy *Routine Respiratory Exam Respiratory: Present CTA bilaterally *Routine Cardiovascular Exam Cardiovascular: Present RRR *Routine Abdominal Exam Abdominal: Present soft and normoactive bowel sounds; Absent tenderness *Routine Extremities Exam Extremities: Absent cyanosis, clubbing or edema *Routine Skin Exam Skin: Present warm; Absent rash *Routine Neurological Exam Neurological: Present alert and oriented X3 Results Data Completed and Pending Labs on day of discharge: Labs from last 24 hours 11/10/24 11/10/24 11/10/24 10:22 08:12 06:58 WBC 0.8 L* D RBC 2.30 L Hgb 8.2 L Hct 24.6 L MCV 107.0 H MCH 35.7 H MCHC 33.3 RDW 15.9 Plt Count 16 L* D MPV 14.1 H Neut % (Auto) 36.1 L Lymph % (Auto) 41.0 [place] % (Auto) 15.7 H Eos % (Auto) 1.2 Baso % (Auto) 1.2 Neut # (Auto) 0.3 L* Lymph # (Auto) 0.3 L [place] # (Auto) 0.1 Eos # (Auto) 0.0 Baso # (Auto) 0.0 Total Counted 25 Neutrophils % (Manual) 40 L Lymphocytes % (Manual) 48 Monocytes % (Manual) 12 H Platelet Estimate Marked decrease Macrocytosis 2+ Sodium 135 L Potassium 3.5 Chloride 104 Carbon Dioxide 25 Anion Gap 9.5 BUN 23 H Creatinine 1.00 Estimated Creat Clear 88 Estimated GFR 72 Est GFR ( Amer) 87 D Glucose 98 D Calcium 8.4 Magnesium 1.8 Total Bilirubin 1.9 H Direct Bilirubin AST 84 H D ALT 117 H D Alkaline Phosphatase 191 H Total Protein 5.9 L Albumin 3.1 L D Globulin 2.8 Albumin/Globulin Ratio 1.1 Chlamy pneumoniae PCR Not detected Adenovirus (PCR) Not detected B. pertussis DNA (PCR) Not detected Coronavirus OC43 (PCR) Not detected Coronavirus HKU1 (PCR) Not detected Coronavirus 229E (PCR) Not detected SARS-CoV-2 (PCR) Not detected Coronavirus NL63 (PCR) Not detected Human Metapneumovir PCR Not detected Influenza A (H1) PCR Not detected Influ A (H1N1/09) PCR Not detected Influenza A (H3) PCR Not detected Influenza Type A (PCR) Not detected Influenza Type B (PCR) Not detected M. pneumoniae (PCR) Not detected Parainfluenza 1 (PCR) Not detected Parainfluenza 2 (PCR) Not detected Parainfluenza 3 (PCR) Not detected Parainfluenza 4 (PCR) Not detected RSV (PCR) Not detected Entero/Rhino (PCR) Not detected Blood Type O Positive 11/09/24 10:28 WBC RBC Hgb Hct MCV MCH MCHC RDW Plt Count MPV Neut % (Auto) Lymph % (Auto) [place] % (Auto) Eos % (Auto) Baso % (Auto) Neut # (Auto) Lymph # (Auto) [place] # (Auto) Eos # (Auto) Baso # (Auto) Total Counted Neutrophils % (Manual) Lymphocytes % (Manual) Monocytes % (Manual) Platelet Estimate Macrocytosis Sodium Potassium Chloride Carbon Dioxide Anion Gap BUN Creatinine Estimated Creat Clear Estimated GFR Est GFR ( Amer) Glucose Calcium Magnesium Total Bilirubin Direct Bilirubin 2.5 H AST ALT Alkaline Phosphatase Total Protein Albumin Globulin Albumin/Globulin Ratio Chlamy pneumoniae PCR Adenovirus (PCR) B. pertussis DNA (PCR) Coronavirus OC43 (PCR) Coronavirus HKU1 (PCR) Coronavirus 229E (PCR) SARS-CoV-2 (PCR) Coronavirus NL63 (PCR) Human Metapneumovir PCR Influenza A (H1) PCR Influ A (H1N1/09) PCR Influenza A (H3) PCR Influenza Type A (PCR) Influenza Type B (PCR) M. pneumoniae (PCR) Parainfluenza 1 (PCR) Parainfluenza 2 (PCR) Parainfluenza 3 (PCR) Parainfluenza 4 (PCR) RSV (PCR) Entero/Rhino (PCR) Blood Type Preliminary micro results at discharge 11/09/24 13:50 Blood Culture - Preliminary Blood NO GROWTH AFTER 24 HOURS 11/09/24 13:45 Blood Culture - Preliminary Blood NO GROWTH AFTER 24 HOURS DS: Diagnosis Discharge Diagnosis (1) Myelodysplastic syndrome: Status: Acute Code(s): D46.9 - Myelodysplastic syndrome, unspecified (2) Vomiting: Status: Acute Code(s): R11.10 - Vomiting, unspecified Qualifiers: Nausea presence: with nausea Vomiting type: unspecified Qualified Code(s): R11.2 - Nausea with vomiting, unspecified Meds Home Medications and Allergies Home Medications ?Medication ?Instructions ?Recorded ?Confirmed ?Type tamsulosin 0.4 mg capsule (Flomax) 0.8 mg PO HS 07/30/18 11/11/24 History escitalopram oxalate 20 mg tablet 20 mg PO DAILY 03/28/23 11/11/24 History buspirone 10 mg tablet 10 mg PO QIDP PRN Anxiety 08/14/23 11/11/24 History omeprazole 20 mg capsule,delayed 20 mg PO DAILY 4 weeks #28 caps 01/15/24 11/11/24 Rx release levocetirizine 5 mg tablet 5 mg PO DAILY 06/15/24 11/11/24 History amlodipine 5 mg tablet 5 mg PO DAILY 07/28/24 11/11/24 History oxycodone-acetaminophen 10 mg-325 1 tab PO Q8HP PRN Moderate Pain 09/02/24 11/11/24 History mg tablet (Scale Score 5-6) atorvastatin 40 mg tablet 40 mg PO HS 11/09/24 11/11/24 History ketorolac 0.5 % eye drops 1 drp ophthalmic (eye) QID 11/09/24 11/11/24 History lactulose 10 gram/15 mL oral 20 g PO DAILYP PRN Constipation 11/09/24 11/11/24 History solution ofloxacin 0.3 % eye drops 1 drp ophthalmic (eye) QID 11/09/24 11/11/24 History prednisolone acetate 1 % eye 1 drp ophthalmic (eye) QID 11/09/24 11/11/24 History drops,suspension New Prescriptions to Start Prescriptions: Allergies Allergy/AdvReac Type Severity Reaction Status Date / Time No Known Allergies Allergy Verified 11/11/24 09:06 Discharge Plan Disposition Patient Disposition: Home, Self-Care Condition: Fair Follow up Plan Follow up with: Glynn Sands II, MD [Staff Physician] - 11/15/24 Darian Brunner MD [Primary Care Provider] - 11/16/24 12:30 pm (appointment in [facility]) Prescriptions/Medication Reconciliation: Continued tamsulosin [Flomax] 0.4 mg capsule 0.8 mg PO HS buspirone 10 mg tablet 10 mg PO QIDP PRN (Reason: Anxiety) escitalopram oxalate 20 mg tablet 20 mg PO DAILY amlodipine 5 mg tablet 5 mg PO DAILY oxycodone-acetaminophen 10-325 mg tablet 1 tab PO Q8HP PRN (Reason: Moderate Pain (Scale Score 5-6)) levocetirizine 5 mg tablet 5 mg PO DAILY omeprazole 20 mg capsule,delayed release(DR/EC) 20 mg PO DAILY 28 Days Qty: 28 0RF atorvastatin 40 mg tablet 40 mg PO HS ofloxacin 0.3 % drops 1 drp ophthalmic (eye) QID ketorolac 0.5 % drops 1 drp ophthalmic (eye) QID prednisolone acetate 1 % drops,suspension 1 drp ophthalmic (eye) QID lactulose 10 gram/15 mL solution 20 g PO DAILYP PRN (Reason: Constipation) Other Ambulatory Orders: Complete Blood Count Auto Diff (Routine) Timeframe: 1 Day Facility: [facility] - Location: Laboratory Ordered By: Rufino Silva MR MRCP wo con (Routine) Timeframe: 1 Day Facility: [facility] - Location: Radiology Ordered By: Rufino Silva Problem Reconciliation Problems Reviewed?: Yes Patient Discharge Instructions Patient Instructions: DI for Vomiting -- Adult, DI for Neutropenia, DI for Myelodysplastic Syndrome Print Language: [place]ic Providers Primary Care Provider: Darian Brunner Admit Provider: Rufino Silva Attending Provider: Rufino Silva
--- NOTE | 2024-11-12 10:37 | SW/DCPLANNER ---
Spoke with patient on the phone. Patient stated that he is doing very well. Patient stated that he is aware of his appointment with his primary care provider. Patient stated that he has no concerns or questions at this time. Abdifatah James
== END 2024-11-10 17:30 | disposition home or self-care (01) ==
LOC: ER 14:22 → 2ND 14:29
PROVIDERS: Admitting Provider Student in an Organized Health Care Education/Training Program; Emergency Provider Student in an Organized Health Care Education/Training Program; PCP Internal Medicine Adolescent Medicine; Visit Provider Student in an Organized Health Care Education/Training Program
DX: R11.2 Nausea with vomiting, unspecified (principal); D46.9 Myelodysplastic syndrome, unspecified; K83.8 Other specified diseases of biliary tract; I10 Essential (primary) hypertension; K21.9 Gastro-esophageal reflux disease without esophagitis; N20.0 Calculus of kidney; M19.90 Unspecified osteoarthritis, unspecified site; D61.810 Antineoplastic chemotherapy induced pancytopenia; E78.5 Hyperlipidemia, unspecified; F32.A Depression, unspecified; F41.9 Anxiety disorder, unspecified; N40.0 Benign prostatic hyperplasia without lower urinary tract symptoms; Z79.01 Long term (current) use of anticoagulants; Z79.899 Other long term (current) drug therapy
CPT/HCPCS: 36415; 71045; 74177; 76705; 80053; 81001; 82248; 83735; 85007; 85025; 86803; 86900; 86901; 87040; 87086; 87389; 87633; 87636; 99285; G0378; J2270; J2405; J3475; J7120; P9034; Q9967

== ENCOUNTER 2024-11-11 08:08 | Outpatient (CLI) | payer MEDICARE, MEDICAID, SELFPAY ==
[2024-11-11 08:26] LABS: Hematocrit 26.3 % (42.0-52.0); Hemoglobin 8.7 g/dL (14.1-18.0); Lymphocytes # 0.6 K/mm3 (0.7-4.5); Mean Corpuscular HGB Conc 33.1 g/dL (31.8-35.4); Mean Corpuscular Hemoglobin 35.4 pg (27.0-31.2); Mean Corpuscular Volume 106.9 fl (80-94); Monocytes # 0.1 K/mm3 (0.1-1.0); Neutrophils # 0.3 K/mm3 (1.8-7.8); Red Blood Count 2.46 M/mm3 (4.60-6.20); Red Cell Distribution Width 15.5 % (11.5-17.5)
[2024-11-11 08:34] LABS: Platelet Count 33 K/mm3 (142-424)
[2024-11-11 08:36] LABS: MANUAL DIFFERENTIAL MANUAL DIFFERENTIAL (MANUAL DIFF)
[2024-11-11 08:52] LABS: Alanine Aminotransferase 93 U/L (12-78); Albumin Level 3.3 g/dl (3.5-5.0); Albumin/Globulin Ratio 1.1 (1.1-1.8); Alkaline Phosphatase 188 U/L (38-126); Anion Gap 10.2 mEq/L (5-15); Aspartate Amino Transferase 62 U/L (17-59); Blood Urea Nitrogen 20 mg/dl (9-20); Calcium 8.8 mg/dl (8.4-10.2); Carbon Dioxide 26 mmol/L (22.0-30.0); Chloride 107 mmol/L (98-107); Estimated Glomerular Filt Rate 65 ml/min (>60); GFR (African American) 78 ML/MIN (>60); Globulin 2.9 g/dL (1.3-3.2); Glucose 108 mg/dl (74-100); Potassium 4.2 mmoL/L (3.5-5.1); Sodium 139 mmol/L (136-145); Total Protein,Serum 6.2 g/dl (6.3-8.2)
[2024-11-11 09:26] LABS: Lymphocytes % 58 % (10-50); Macrocytosis 2+; Monocytes % 1 % (2-9); Neutrophils % 41 % (42-76); Platelet Estimate Marked Decrease; Total Cells Counted 100
== END 2024-11-11 08:50 ==
PROVIDERS: PCP Internal Medicine Adolescent Medicine; Visit Provider Internal Medicine Medical Oncology
DX: D46.9 Myelodysplastic syndrome, unspecified (principal)
CPT/HCPCS: 36415; 80053; 85007; 85025

== ENCOUNTER 2024-11-17 10:03 | Outpatient (CLI) | payer MEDICARE, MEDICAID, SELFPAY ==
[2024-11-17 10:21] LABS: Basophils % 0.5 % (0.1-2.0); Eosinophils # 0.1 K/mm3 (0.0-0.4); Eosinophils % 5.1 % (0.1-12.0); Hematocrit 27.9 % (42.0-52.0); Hemoglobin 9.1 g/dL (14.1-18.0); Lymphocytes # 1.2 K/mm3 (0.7-4.5); Lymphocytes % 59.9 % (10-50); Mean Corpuscular HGB Conc 32.6 g/dL (31.8-35.4); Mean Corpuscular Hemoglobin 35.5 pg (27.0-31.2); Mean Platelet Volume 11.4 fl (7.4-10.4); Monocytes # 0.2 K/mm3 (0.1-1.0); Monocytes % 8.1 % (1.7-9.3); Neutrophils # 0.5 K/mm3 (1.8-7.8); Neutrophils % 25.9 % (37.0-80.0); Red Blood Count 2.56 M/mm3 (4.60-6.20); Red Cell Distribution Width 15.8 % (11.5-17.5)
[2024-11-17 10:22] LABS: Platelet Count 32 K/mm3 (142-424)
[2024-11-17 10:23] LABS: MANUAL DIFFERENTIAL MANUAL DIFFERENTIAL (MANUAL DIFF)
[2024-11-17 11:38] LABS: Lymphocytes % 60 % (10-50); Macrocytosis 1+; Monocytes % 10 % (2-9); Neutrophils % 30 % (42-76); Platelet Estimate Marked Decrease; Total Cells Counted 50
== END 2024-11-17 10:15 | disposition home or self-care (01) ==
LOC: INF 10:05
PROVIDERS: PCP Internal Medicine Adolescent Medicine; Visit Provider Internal Medicine Medical Oncology
DX: D46.9 Myelodysplastic syndrome, unspecified (principal)
CPT/HCPCS: 36415; 85007; 85025

== ENCOUNTER 2024-11-25 10:12 | Outpatient (CLI) | payer MEDICARE, MEDICAID, SELFPAY ==
--- NOTE | 2024-11-25 10:21 | PC.NURSE ---
1021-COLLECTED LABS VIA VENIPUNCTURE STICK IN LEFT AC WITH BUTTERFLY NEEDLE;PT TO D/C HOME.
[2024-11-25 10:34] LABS: Basophils % 0.5 % (0.1-2.0); Eosinophils # 0.1 K/mm3 (0.0-0.4); Eosinophils % 2.9 % (0.1-12.0); Hematocrit 27.4 % (42.0-52.0); Hemoglobin 9.1 g/dL (14.1-18.0); Lymphocytes # 0.9 K/mm3 (0.7-4.5); Lymphocytes % 44.1 % (10-50); Mean Corpuscular HGB Conc 33.2 g/dL (31.8-35.4); Mean Corpuscular Hemoglobin 35.8 pg (27.0-31.2); Mean Corpuscular Volume 107.9 fl (80-94); Mean Platelet Volume 11.6 fl (7.4-10.4); Monocytes # 0.2 K/mm3 (0.1-1.0); Monocytes % 10.3 % (1.7-9.3); Neutrophils # 0.8 K/mm3 (1.8-7.8); Neutrophils % 41.2 % (37.0-80.0); Red Blood Count 2.54 M/mm3 (4.60-6.20); Red Cell Distribution Width 15.2 % (11.5-17.5)
[2024-11-25 10:41] LABS: Platelet Count 32 K/mm3 (142-424)
== END 2024-11-25 10:25 | disposition home or self-care (01) ==
LOC: INF 10:13
PROVIDERS: PCP Internal Medicine Adolescent Medicine; Visit Provider Internal Medicine Medical Oncology
DX: D46.9 Myelodysplastic syndrome, unspecified (principal)
CPT/HCPCS: 36415; 85025

== ENCOUNTER 2024-11-30 08:01 | Outpatient (CLI) | payer MEDICARE, MEDICAID, SELFPAY ==
[2024-11-30 08:20] LABS: Eosinophils # 0.1 K/mm3 (0.0-0.4); Eosinophils % 6.2 % (0.1-12.0); Hematocrit 27.3 % (42.0-52.0); Hemoglobin 8.8 g/dL (14.1-18.0); Lymphocytes # 1.1 K/mm3 (0.7-4.5); Lymphocytes % 67.7 % (10-50); Mean Corpuscular HGB Conc 32.2 g/dL (31.8-35.4); Mean Corpuscular Hemoglobin 35.2 pg (27.0-31.2); Mean Corpuscular Volume 109.2 fl (80-94); Mean Platelet Volume 12.3 fl (7.4-10.4); Monocytes # 0.1 K/mm3 (0.1-1.0); Monocytes % 6.2 % (1.7-9.3); Neutrophils # 0.3 K/mm3 (1.8-7.8); Neutrophils % 19.3 % (37.0-80.0); Red Cell Distribution Width 15.3 % (11.5-17.5); White Blood Count 1.6 K/mm3 (4.8-10.8)
--- NOTE | 2024-11-30 08:21 | PC.NURSE ---
0810- labs drawn per MD order via butterfly needle in left ac. needle removed and coban applied. pt tolerated well.
[2024-11-30 08:26] LABS: Chloride 106 mmol/L (98-107)
[2024-11-30 08:27] LABS: Potassium 4.1 mmoL/L (3.5-5.1); Sodium 139 mmol/L (136-145)
[2024-11-30 08:28] LABS: Platelet Count 30 K/mm3 (142-424)
[2024-11-30 08:29] LABS: Alanine Aminotransferase 34 U/L (12-78); Aspartate Amino Transferase 32 U/L (17-59); Blood Urea Nitrogen 21 mg/dl (9-20); Estimated Glomerular Filt Rate 45 ml/min (>60); GFR (African American) 55 ML/MIN (>60); MANUAL DIFFERENTIAL MANUAL DIFFERENTIAL (MANUAL DIFF)
[2024-11-30 08:30] LABS: Albumin/Globulin Ratio 1.4 (1.1-1.8); Alkaline Phosphatase 200 U/L (38-126); Anion Gap 13.1 mEq/L (5-15); Bilirubin,Total 0.7 mg/dl (0.2-1.3); Calcium 8.9 mg/dl (8.4-10.2); Carbon Dioxide 24 mmol/L (22.0-30.0); Globulin 2.9 g/dL (1.3-3.2); Glucose 127 mg/dl (74-100); Total Protein,Serum 6.9 g/dl (6.3-8.2)
[2024-11-30 11:00] LABS: Eosinophils % 8 % (0-3); Lymphocytes % 64 % (10-50); Monocytes % 16 % (2-9); Neutrophils % 12 % (42-76); Total Cells Counted 100
[2024-11-30 11:01] LABS: Macrocytosis 2+; Platelet Estimate Moderate Decrease
== END 2024-11-30 08:21 | disposition home or self-care (01) ==
LOC: INF 08:01
PROVIDERS: PCP Internal Medicine Adolescent Medicine; Visit Provider Internal Medicine Medical Oncology
DX: D46.9 Myelodysplastic syndrome, unspecified (principal)
CPT/HCPCS: 36415; 80053; 85007; 85025

== ENCOUNTER 2024-12-30 08:17 | Outpatient (CLI) | payer MEDICARE, MEDICAID, SELFPAY ==
[2024-12-30 08:51] LABS: Basophils % 0.7 % (0.1-2.0); Eosinophils # 0.1 K/mm3 (0.0-0.4); Eosinophils % 4.2 % (0.1-12.0); Hematocrit 26.9 % (42.0-52.0); Lymphocytes % 69.4 % (10-50); Mean Corpuscular HGB Conc 33.5 g/dL (31.8-35.4); Mean Corpuscular Hemoglobin 36.9 pg (27.0-31.2); Mean Corpuscular Volume 110.2 fl (80-94); Mean Platelet Volume 10.6 fl (7.4-10.4); Monocytes # 0.1 K/mm3 (0.1-1.0); Monocytes % 8.3 % (1.7-9.3); Neutrophils # 0.2 K/mm3 (1.8-7.8); Neutrophils % 16.7 % (37.0-80.0); Red Blood Count 2.44 M/mm3 (4.60-6.20); Red Cell Distribution Width 15.5 % (11.5-17.5); White Blood Count 1.4 K/mm3 (4.8-10.8)
[2024-12-30 08:54] LABS: Platelet Count 24 K/mm3 (142-424)
[2024-12-30 08:55] LABS: MANUAL DIFFERENTIAL MANUAL DIFFERENTIAL (MANUAL DIFF)
[2024-12-30 09:03] LABS: Albumin Level 4.3 g/dl (3.5-5.0); Chloride 109 mmol/L (98-107); Sodium 140 mmol/L (136-145)
[2024-12-30 09:04] LABS: Potassium 4.1 mmoL/L (3.5-5.1)
[2024-12-30 09:06] LABS: Alanine Aminotransferase 28 U/L (12-78); Albumin/Globulin Ratio 1.5 (1.1-1.8); Alkaline Phosphatase 100 U/L (38-126); Anion Gap 14.1 mEq/L (5-15); Aspartate Amino Transferase 28 U/L (17-59); Bilirubin,Total 0.6 mg/dl (0.2-1.3); Blood Urea Nitrogen 21 mg/dl (9-20); Carbon Dioxide 21 mmol/L (22.0-30.0); Estimated Glomerular Filt Rate 53 ml/min (>60); GFR (African American) 64 ML/MIN (>60); Globulin 2.8 g/dL (1.3-3.2); Total Protein,Serum 7.1 g/dl (6.3-8.2)
[2024-12-30 09:07] LABS: Calcium 9.1 mg/dl (8.4-10.2); Glucose 109 mg/dl (74-100)
--- NOTE | 2024-12-30 09:14 | PC.NURSE ---
0830 - Blood drawn from left AC using butterfly needle to check labs prior to appt with Dr Whitt.
[2024-12-30 10:31] LABS: Eosinophils % 1 % (0-3); Lymphocytes % 72 % (10-50); Macrocytosis 2+; Monocytes % 6 % (2-9); Neutrophils % 21 % (42-76); Platelet Estimate Marked Decrease; Total Cells Counted 100
== END 2024-12-30 08:35 | disposition home or self-care (01) ==
LOC: INF 08:20
PROVIDERS: PCP Internal Medicine Adolescent Medicine; Visit Provider Internal Medicine Medical Oncology
DX: D46.9 Myelodysplastic syndrome, unspecified (principal)
CPT/HCPCS: 36415; 80053; 85007; 85025

== ENCOUNTER 2025-01-27 08:31 | Outpatient (CLI) | payer MEDICARE, MEDICAID, SELFPAY ==
--- NOTE | 2025-01-27 08:40 | PC.NURSE ---
0840-collected labs via venipuncture stick in left ac with butterfly needle; pt to d/c to appt.
[2025-01-27 08:49] LABS: Basophils % 0.7 % (0.1-2.0); Eosinophils # 0.1 K/mm3 (0.0-0.4); Eosinophils % 5.6 % (0.1-12.0); Hematocrit 25.4 % (42.0-52.0); Hemoglobin 8.2 g/dL (14.1-18.0); Mean Corpuscular HGB Conc 32.3 g/dL (31.8-35.4); Mean Corpuscular Hemoglobin 36.6 pg (27.0-31.2); Mean Corpuscular Volume 113.4 fl (80-94); Mean Platelet Volume 13.7 fl (7.4-10.4); Monocytes # 0.2 K/mm3 (0.1-1.0); Monocytes % 13.9 % (1.7-9.3); Neutrophils # 0.2 K/mm3 (1.8-7.8); Nucleated Red Blood Cells # 0 10^3/uL; Nucleated Red Blood Cells % 0 %; Red Blood Count 2.24 M/mm3 (4.60-6.20); Red Cell Distribution Width 16.3 % (11.5-17.5); Red Cell Distribution Width-SD 66.5 fL; White Blood Count 1.4 K/mm3 (4.8-10.8)
[2025-01-27 08:53] LABS: Neutrophils % 13.8 % (37.0-80.0); Platelet Count 27 K/mm3 (142-424)
[2025-01-27 08:54] LABS: MANUAL DIFFERENTIAL MANUAL DIFFERENTIAL (MANUAL DIFF)
[2025-01-27 09:04] LABS: Alanine Aminotransferase 23 U/L (12-78); Albumin Level 3.9 g/dl (3.5-5.0); Albumin/Globulin Ratio 1.2 (1.1-1.8); Alkaline Phosphatase 149 U/L (38-126); Anion Gap 14.2 mEq/L (5-15); Aspartate Amino Transferase 25 U/L (17-59); Bilirubin,Total 0.7 mg/dl (0.2-1.3); Blood Urea Nitrogen 22 mg/dl (9-20); Calcium 8.9 mg/dl (8.4-10.2); Carbon Dioxide 24 mmol/L (22.0-30.0); Chloride 107 mmol/L (98-107); Estimated Glomerular Filt Rate 53 ml/min (>60); GFR (African American) 64 ML/MIN (>60); Globulin 3.3 g/dL (1.3-3.2); Glucose 99 mg/dl (74-100); Potassium 4.2 mmoL/L (3.5-5.1); Sodium 141 mmol/L (136-145); Total Protein,Serum 7.2 g/dl (6.3-8.2)
[2025-01-27 09:26] LABS: Eosinophils % 2 % (0-3); Lymphocytes % 69 % (10-50); Monocytes % 10 % (2-9); Neutrophils % 15 % (42-76); Total Cells Counted 100
[2025-01-27 09:31] LABS: Anisocytosis 2+; Platelet Estimate Marked Decrease; Poikilocytosis 2+
== END 2025-01-27 08:45 | disposition home or self-care (01) ==
LOC: INF 08:32
PROVIDERS: PCP Internal Medicine Adolescent Medicine; Visit Provider Internal Medicine Medical Oncology
DX: D46.9 Myelodysplastic syndrome, unspecified (principal)
CPT/HCPCS: 36415; 80053; 85007; 85025

== ENCOUNTER 2025-01-28 14:59 | Outpatient (CLI) | payer MEDICARE, MEDICAID, SELFPAY ==
--- NOTE | 2025-01-28 15:03 | CA_ITS ---
APPROVED REPORT EXAM: Comprehensive 2D, Doppler, and color-flow Echocardiogram Residential Appraiser: Debora Carrillo RVT Ht: 6 ft 0 in Wt: 231lbs BSA: 2.27 BP: 121/55 mmHg Indications: abn ekg,myelodysplastic syndrome,soa,palps,murmur tds-overlaying lung 2D Dimensions IVSd 1.75 cm M: 0.6-1.2 LVEF (Visual) 66.20 % PWd 0.98 cm M: 0.6 - 1.2 LA Volume 29.20 mL LVDd 4.85 cm M: 4.2 - 5.9 LA Volume Index 12.86 mL/m2 (M/F) 16-34 LVDs 3.08 cm M: 2.5 - 4.0 EF AP4 67.30 % GL Strain -24.6 % M-Mode Dimensions LA Diam 3.97 cm (1.9-4.0) TAPSE 2.42 (<1.7) LV Diastology E Decel Time 150 (160-240 msec) E/A Ratio 1.0 Aortic Valve RAMIREZ Index 1.34 cm2/m2 AoV Peak Rao. 122.0 (50-130 cm/s) AO Peak GR. 6.00 mmHg AO Mean GR. 4.20 (<5 mmHg) AO VTI 25.0 (18-25 cm) RAMIREZ (VTI) 3.10 (2.5-4.5 cm2) Mitral Valve MV E Max Rao. 64.0 (40-130 cm/s) MV A Velocity 66.0 (40-130 cm/s) E/A Ratio 0.97 MV PHT 44.0 ms Pulmonary Valve PV Peak Velocity 76.0 (50-150 cm/s) Left Ventricle The left ventricle is normal size. The left ventricular systolic function is normal. The left ventricular ejection fraction is within the normal range. There is increased LV wall thickness. There is normal LV segmental wall motion. The left ventricular diastolic function is normal. LVEF is 55%. Right Ventricle Right ventricle is moderately dilated. Right ventricle is borderline hypokinetic. Atria The left atrium is mildly dilated. The right atrium is mildly dilated. There is no Doppler evidence of interatrial shunt. Aortic Valve Aortic valve is mildly thickened. Trace aortic regurgitation. There is no aortic valvular stenosis. Mitral Valve The mitral valve is normal in structure. No evidence of mitral valve stenosis. At least mild mitral regurgitation is present. The mitral regurgitant jet is eccentric and anteriorly directed. The MR severity may be underestimated in the setting of eccentric jet. Tricuspid Valve Tricuspid valve is grossly normal in structure and function. Trace tricuspid regurgitation. There is insufficient TR jet to estimate RVSP Pulmonic Valve The pulmonary valve is normal in structure. Trace pulmonic regurgitation. Great Vessels The aortic root is normal in size. IVC is normal in size and collapses >50% with inspiration. Pericardium There is no pericardial effusion. Other Information Study Quality: Technically Difficult Conclusion Technically difficult study due to poor acoustic windows. Normal LV systolic function. Moderate RV dilation with borderline reduction in RV function. Mild biatrial dilation. At least mild MR. The mitral regurgitant jet is eccentric and anteriorly directed. The MR severity may be underestimated in the setting of eccentric jet. Electronically signed by : Nichelle Grider MD 01/31/2025 23:06:59
== END 2025-01-28 23:59 | disposition home or self-care (01) ==
LOC: RT 15:00
PROVIDERS: PCP Internal Medicine Adolescent Medicine; Visit Provider Physician Assistant
DX: I07.1 Rheumatic tricuspid insufficiency (principal); I35.1 Nonrheumatic aortic (valve) insufficiency; R06.02 Shortness of breath
CPT/HCPCS: 93306

== ENCOUNTER 2025-02-03 08:17 | Outpatient (CLI) | payer MEDICARE, MEDICAID, SELFPAY ==
[2025-02-04 15:10] LABS: Erythropoietin 206.3 mIU/mL (2.6-18.5)
== END 2025-02-03 08:35 | disposition home or self-care (01) ==
LOC: INF 08:18
PROVIDERS: PCP Internal Medicine Adolescent Medicine; Visit Provider Internal Medicine Medical Oncology
DX: D46.9 Myelodysplastic syndrome, unspecified (principal)
CPT/HCPCS: 36415; 82668

== ENCOUNTER 2025-02-14 08:39 | Outpatient (CLI) | payer MEDICARE, MEDICAID, SELFPAY ==
[2025-02-14] MEDS: EPOETIN 20,000 UNITS/ML MDV 40000 UNIT SUBCUT (08:52)
[2025-02-14 09:05] VITALS: BP 128/74; PULSE 81; RESP 18; O2SAT 98
== END 2025-02-14 09:05 | disposition home or self-care (01) ==
LOC: INF 08:41
PROVIDERS: PCP Internal Medicine Adolescent Medicine; Visit Provider Internal Medicine Medical Oncology
DX: D46.9 Myelodysplastic syndrome, unspecified (principal); D64.9 Anemia, unspecified
CPT/HCPCS: 96372; J0885

== ENCOUNTER 2025-02-22 09:32 | Outpatient (CLI) | payer MEDICARE, MEDICAID, SELFPAY ==
[2025-02-22 09:34] VITALS: BMI 32.1
[2025-02-22 09:53] LABS: Eosinophils # 0.1 Kmm3 (0.0-0.4); Hematocrit 22.1 % (42.0-52.0); Hemoglobin 7.2 g/dL (14.1-18.0); Immature Granulocytes # 0.01 10^3uL; Immature Granulocytes % 0.8 %; Lymphocytes # 0.8 K/mm3 (0.7-4.5); Lymphocytes % 64.1 % (10-50); Mean Corpuscular HGB Conc 32.6 g/dL (31.8-35.4); Mean Corpuscular Hemoglobin 38.5 pg (27.0-31.2); Mean Corpuscular Volume 118.2 fl (80-94); Monocytes # 0.2 K/mm3 (0.1-1.0); Monocytes % 11.7 % (1.7-9.3); Neutrophils # 0.2 K/mm3 (1.8-7.8); Neutrophils % 16.4 % (37.0-80.0); Nucleated Red Blood Cells # 0 10^3/uL; Nucleated Red Blood Cells % 0 %; Red Blood Count 1.87 M/mm3 (4.60-6.20); Red Cell Distribution Width 16.9 % (11.5-17.5); Red Cell Distribution Width-SD 72.1 fL
[2025-02-22 09:55] LABS: MANUAL DIFFERENTIAL MANUAL DIFFERENTIAL (MANUAL DIFF); Platelet Count 21 K/mm3 (142-424); White Blood Count 1.3 K/mm3 (4.8-10.8)
[2025-02-22 09:59] LABS: Alanine Aminotransferase 22 U/L (12-78); Albumin Level 3.9 g/dl (3.5-5.0); Albumin/Globulin Ratio 1.4 (1.1-1.8); Alkaline Phosphatase 134 U/L (38-126); Anion Gap 5.2 mEq/L (5-15); Aspartate Amino Transferase 32 U/L (17-59); Bilirubin,Total 0.6 mg/dl (0.2-1.3); Blood Urea Nitrogen 21 mg/dl (9-20); Calcium 8.7 mg/dl (8.4-10.2); Carbon Dioxide 26 mmol/L (22.0-30.0); Chloride 111 mmol/L (98-107); Creatinine Clearance Estimated 76 mL/min (50-200); Estimated Glomerular Filt Rate 58 ml/min (>60); GFR (African American) 71 ML/MIN (>60); Globulin 2.8 g/dL (1.3-3.2); Glucose 120 mg/dl (74-100); Potassium 4.2 mmoL/L (3.5-5.1); Sodium 138 mmol/L (136-145); Total Protein,Serum 6.7 g/dl (6.3-8.2)
[2025-02-22 10:12] LABS: Lymphocytes % 72 % (10-50); Monocytes % 5 % (2-9); Neutrophils % 23 % (42-76); Total Cells Counted 100
[2025-02-22 10:13] LABS: Macrocytosis 2+; Ovalocytes 1+; Platelet Estimate Marked Decrease
[2025-02-22 10:22] VITALS: BP 113/55; PULSE 76; RESP 18; TEMP 36.5; O2SAT 99
[2025-02-22] MEDS: EPOETIN 20,000 UNITS/ML MDV 40000 UNIT SUBCUT (10:22)
== END 2025-02-22 10:40 | disposition home or self-care (01) ==
LOC: INF 09:34
PROVIDERS: PCP Internal Medicine Adolescent Medicine; Visit Provider Internal Medicine Medical Oncology
DX: D46.9 Myelodysplastic syndrome, unspecified (principal); D64.9 Anemia, unspecified
CPT/HCPCS: 36415; 80053; 85007; 85025; 96372; J0885

== ENCOUNTER 2025-03-01 13:32 | Outpatient (CLI) | payer MEDICARE, MEDICAID, SELFPAY ==
[2025-03-01 13:35] VITALS: BMI 32.1
[2025-03-01] MEDS: EPOETIN 20,000 UNITS/ML MDV 40000 UNIT SUBCUT (13:43)
[2025-03-01 13:50] VITALS: BP 150/75; PULSE 78; RESP 18; TEMP 36.7; O2SAT 100
[2025-03-01 14:16] LABS: Basophils % 0.8 % (0.1-2.0); Eosinophils # 0.1 Kmm3 (0.0-0.4); Eosinophils % 6.5 % (0.1-12.0); Hematocrit 22.7 % (42.0-52.0); Hemoglobin 7.6 g/dL (14.1-18.0); Immature Granulocytes # 0 10^3uL; Immature Granulocytes % 0 %; Lymphocytes # 0.8 K/mm3 (0.7-4.5); Lymphocytes % 65.3 % (10-50); Mean Corpuscular HGB Conc 33.5 g/dL (31.8-35.4); Mean Corpuscular Hemoglobin 39.2 pg (27.0-31.2); Monocytes # 0.2 K/mm3 (0.1-1.0); Monocytes % 12.1 % (1.7-9.3); Neutrophils # 0.2 K/mm3 (1.8-7.8); Neutrophils % 15.3 % (37.0-80.0); Nucleated Red Blood Cells # 0 10^3/uL; Nucleated Red Blood Cells % 0 %; Red Blood Count 1.94 M/mm3 (4.60-6.20); Red Cell Distribution Width 16.9 % (11.5-17.5); Red Cell Distribution Width-SD 71.9 fL
[2025-03-01 14:17] LABS: Platelet Count 25 K/mm3 (142-424); White Blood Count 1.2 K/mm3 (4.8-10.8)
[2025-03-01 14:18] LABS: MANUAL DIFFERENTIAL MANUAL DIFFERENTIAL (MANUAL DIFF)
[2025-03-01 15:09] LABS: Lymphocytes % 54 % (10-50); Monocytes % 8 % (2-9); Myelocytes % 2 (0-1); Neutrophils % 26 % (42-76); Total Cells Counted 50
[2025-03-01 15:12] LABS: Platelet Estimate Marked Decrease
[2025-03-01 15:13] LABS: Elliptocytes 1+; Ovalocytes 2+; Polychromasia 3+
== END 2025-03-01 14:30 | disposition home or self-care (01) ==
LOC: INF 13:33
PROVIDERS: PCP Internal Medicine Adolescent Medicine; Visit Provider Internal Medicine Medical Oncology
DX: D46.9 Myelodysplastic syndrome, unspecified (principal); D64.9 Anemia, unspecified
CPT/HCPCS: 85007; 85025; 96372; J0885

== ENCOUNTER 2025-03-08 09:04 | Outpatient (CLI) | payer MEDICARE, MEDICAID, SELFPAY ==
[2025-03-08] VITALS (20 sets, daily range): BP systolic 108–137; BP diastolic 48–63; PULSE 68–94; RESP 18–20; TEMP 36.4–36.9; O2SAT 94–98; BMI 32.1
[2025-03-08 09:27] LABS: Basophils % 0.9 % (0.1-2.0); Eosinophils # 0.1 Kmm3 (0.0-0.4); Eosinophils % 4.3 % (0.1-12.0); Hematocrit 22.3 % (42.0-52.0); Hemoglobin 7.2 g/dL (14.1-18.0); Immature Granulocytes # 0.01 10^3uL; Immature Granulocytes % 0.9 %; Lymphocytes # 0.8 K/mm3 (0.7-4.5); Lymphocytes % 68.7 % (10-50); Mean Corpuscular HGB Conc 32.3 g/dL (31.8-35.4); Mean Corpuscular Hemoglobin 38.1 pg (27.0-31.2); Monocytes # 0.1 K/mm3 (0.1-1.0); Monocytes % 12.2 % (1.7-9.3); Neutrophils # 0.2 K/mm3 (1.8-7.8); Nucleated Red Blood Cells # 0 10^3/uL; Nucleated Red Blood Cells % 0 %; Red Blood Count 1.89 M/mm3 (4.60-6.20); Red Cell Distribution Width 16.7 % (11.5-17.5); Red Cell Distribution Width-SD 72.3 fL
[2025-03-08 09:34] LABS: Platelet Count 18 K/mm3 (142-424); White Blood Count 1.2 K/mm3 (4.8-10.8)
[2025-03-08] MEDS: EPOETIN 20,000 UNITS/ML MDV 40000 UNIT SUBCUT (09:35)
[2025-03-08 09:36] LABS: MANUAL DIFFERENTIAL MANUAL DIFFERENTIAL (MANUAL DIFF)
[2025-03-08 10:31] LABS: Eosinophils % 4 % (0-3); Lymphocytes % 80 % (10-50); Monocytes % 2 % (2-9); Neutrophils % 14 % (42-76); Total Cells Counted 50
[2025-03-08 10:32] LABS: Ovalocytes 1+
[2025-03-08 10:34] LABS: Platelet Estimate Marked Decrease
--- NOTE | 2025-03-08 11:16 | PC.NURSE ---
03/08/25 1111 Lab staff Sindy at pt bs to witness nursing staff obtain blood for type and crossmatch. Blood obtained from existing iv line. Iv flushed and set to sl. Will await time for crossmatch to start transfusion.
[2025-03-08] MEDS: 0.9 % SODIUM CHLORIDE 250 ML 25 ML IV (12:36)
== END 2025-03-08 17:36 | disposition home or self-care (01) ==
LOC: INF 09:06
PROVIDERS: PCP Internal Medicine Adolescent Medicine; Visit Provider Internal Medicine Medical Oncology
DX: D46.9 Myelodysplastic syndrome, unspecified (principal); D64.9 Anemia, unspecified
CPT/HCPCS: 36415; 36430; 85007; 85025; 85027; 86850; 96372; J0885; J7050; P9016

== ENCOUNTER 2025-03-15 09:00 | Outpatient (CLI) | payer MEDICARE, MEDICAID, SELFPAY ==
[2025-03-15 09:04] VITALS: BMI 32.1
[2025-03-15 09:15] VITALS: BP 129/68; PULSE 75; RESP 18; TEMP 36.7; O2SAT 100
[2025-03-15 09:15] LABS: Eosinophils # 0.1 Kmm3 (0.0-0.4); Eosinophils % 4.3 % (0.1-12.0); Hematocrit 27.1 % (42.0-52.0); Hemoglobin 8.8 g/dL (14.1-18.0); Immature Granulocytes # 0.01 10^3uL; Immature Granulocytes % 0.9 %; Lymphocytes # 0.8 K/mm3 (0.7-4.5); Lymphocytes % 68.7 % (10-50); Mean Corpuscular HGB Conc 32.5 g/dL (31.8-35.4); Mean Corpuscular Hemoglobin 36.1 pg (27.0-31.2); Mean Corpuscular Volume 111.1 fl (80-94); Monocytes # 0.1 K/mm3 (0.1-1.0); Monocytes % 11.3 % (1.7-9.3); Neutrophils # 0.2 K/mm3 (1.8-7.8); Neutrophils % 14.8 % (37.0-80.0); Nucleated Red Blood Cells # 0 10^3/uL; Nucleated Red Blood Cells % 0 %; Red Blood Count 2.44 M/mm3 (4.60-6.20); Red Cell Distribution Width 19.2 % (11.5-17.5); Red Cell Distribution Width-SD 77.9 fL
[2025-03-15] MEDS: EPOETIN 20,000 UNITS/ML MDV 60000 UNIT SUBCUT (09:15)
[2025-03-15 09:32] LABS: Platelet Count 18 K/mm3 (142-424); White Blood Count 1.2 K/mm3 (4.8-10.8)
[2025-03-15 09:33] LABS: MANUAL DIFFERENTIAL MANUAL DIFFERENTIAL (MANUAL DIFF)
[2025-03-15 11:50] LABS: Eosinophils % 6 % (0-3); Lymphocytes % 68 % (10-50); Monocytes % 6 % (2-9); Neutrophils % 20 % (42-76); Total Cells Counted 50
[2025-03-15 11:51] LABS: Macrocytosis 2+; Ovalocytes 1+
[2025-03-15 12:00] LABS: Platelet Estimate Marked Decrease
== END 2025-03-15 23:59 | disposition home or self-care (01) ==
LOC: INF 09:02
PROVIDERS: PCP Internal Medicine Adolescent Medicine; Visit Provider Internal Medicine Medical Oncology
DX: D46.9 Myelodysplastic syndrome, unspecified (principal); D64.9 Anemia, unspecified
CPT/HCPCS: 85007; 85025; 85027; 96372; J0885

== ENCOUNTER 2025-03-22 09:31 | Outpatient (CLI) | payer MEDICARE, MEDICAID, SELFPAY ==
--- OUTSIDE RECORDS SUMMARY | 2024-11-16 08:30 | XMS_ITS ---
Author Organization [facility] PE D [facility] Address [address] [place] [address] Care Team Providers Care Manager Ecommerce Name Role Phone Darian Brunner Primary Care Provider REASON FOR VISIT [facility] Encounters Encounter Location Date Provider Diagnosis [place] [address] [address] 11/16/2024 Darian Brunner Plan Of Treatment No Information Progress Notes * Glenn MARTI BDOB:[birth year] (79 yo M)Acc No.[id number]:11/16/2024 HOSP F/U Patient: Theresa PACK Glenn Faulkner Provider: Rossy Brunner MD :1945 A ge:79 Y S ex:Male Date:11/16/2024 Address:[address], [id number] Subjective: * Chief Complaints: * 1 . [facility]. * Medical History: Objective: * Vitals: Assessment: Plan: * Treatment: * * Electronic signature of Vasyl Brunner MD FAAP on 03/22/2025 at 09:38 AM EDT Sign off status: Pending * Provider: Rossy Brunner MD Date: 11/16/2024 Generated for Printi ng/Faxing/eTransmitting on: 0 03/22/2025 09:38 AM EDT
--- OUTSIDE RECORDS SUMMARY | 2025-01-15 17:30 | XMS_ITS ---
Author Organization [facility] Address [address] [place] [address] Care Team Providers Care Consumer Safety Inspector Name Role Phone Darian Brunner Primary Care Provider [phone] Migration, Provider Unavailable Unavailable REASON FOR VISIT Multum To [facility] Conversion Encounter Medications Medication SIG (Take, Route, [...] Active Encounters Encounter Location Date Provider Diagnosis [facility] [place] [address] [facility] [address] [place] [address] 01/15/2025 Provider Migration Essential hypertension I10 and [...] Glenn MARTI BDOB:[birth year] (79 yo M)Acc No.[id number]:01/15/2025 Patient: Glenn GILMORE Provider: Caroline cedeño Migration :1945 A ge:79 Y S ex:Male Date:01/15/2025 Address:[address] [place] [address] , [place], [id number] Pcp:Darian Brunner Subjective: * Chief Complaints: * 1 . [facility] En[facility]. * Medical History: * Medications: [...] *Please review and pick correct strength-formulation from [facility] options. If intended option is not shown, [...] Electronic signature of Prov ider Migration on 03/22/2025 at 09:38 AM EDT Sign off status: Pending * Provider: Caroline cedeño Migration Date: 0 01/15/2025 Generated for Claudette hess/Vinicio/Etinene on: 0 03/22/2025 09:38 AM EDT
[2025-03-22 09:33] VITALS: BMI 31.8
--- OUTSIDE RECORDS SUMMARY | 2025-03-22 09:39 | XMS_ITS | Clinical Summary ---
Author Organization [employer] Address [address] [place] [address] Care Team Providers Care Bank Examiner Name Role Phone Darian Brunner MD Primary Care Provider [phone] Allergies No known active allergies Medications acyclovir (ZOVIRAX) 800 MG tablet Take 1 tablet (800 mg total) by mouth daily. Active fluconazole (DIFLUCAN) 200 MG tablet Take 1 tablet (200 mg total) by mouth daily. Active atorvastatin (LIPITOR) 40 MG tablet Take 1 tablet (40 mg total) by mouth daily. Active escitalopram oxalate (LEXAPRO) 20 MG tablet Take 1 tablet (20 mg total) by mouth daily. Active busPIRone (BUSPAR) 10 MG tablet Take 1 tablet (10 mg total) by mouth 3 (three) times daily. Active meloxicam (MOBIC) 15 MG tablet Take 1 tablet (15 mg total) by mouth daily. Active tamsulosin (FLOMAX) 0.4 mg Cap 24 hr capsule Take 1 capsule (0.4 mg total) by mouth daily. Active oxyCODONE-aceta minophen (PERCOCET) 7.5-325 mg per tablet Take 1 tablet by mouth every 4 (four) hours as needed for pain Look-alike /Sound-alike medication . Active cyclobenzaprine (FLEXERIL) 10 MG tablet Take 1 tablet (10 mg total) by mouth 3 (three) times daily as needed for muscle spasms. Active Active Problems Problem Noted Date Diagnosed Date Smoker 12/16/2024 Gastroesophageal reflux disease 12/16/2024 Hiatal hernia 12/16/2024 HTN (hypertension) 01/01/2024 Antibiotic treatment within past 2 months Overview (11/18/2024): patient is currently on antibiotic treatment due to low WBC Anxiety Arthritis Atrial fibrillation Cancer Overview (11/18/2024): bone marrow- currently taking chemo treatment Enlarged prostate High cholesterol Social History Tobacco Use Types Packs/Day Years Used Date Smoking Tobacco: Former Cigarettes Q uit: 1995 Smokeless Tobacco: Never Tobacco Cessation:Counseling Given: Not Answered Alcohol Use Standard Drinks/Week Comments Not Currently 0 (1 standard drink = 0.6 oz pur e alcohol) OCCASIONALLY Interpersonal Safety Answer Date Record ed Family or friends hurt you Not on file 12/24 Family or friends insult you Not on file Family or friends threaten you Not on file 0 12/25/2023 Family or friends scream or curse at you Not on file 12/25/2023 Housing Stability Answer Date Recorded Living situation today Not on file Living situation problems Not on file 2023 Family and Community Support Answer Crispin e Recorded Help with Day to Day Activities Not on file 12/25/2023 Feeling Lonely or Isolated Not on file 12/24 Educational Attainment Answer Date Celestino rded Speak language other than Zimbabwean at home Not on file 12/25/2023 Want help with school or training Not on file 12/25/2023 Depression Answer Date Recorded PHQ-2 Risk Not on file 12/25/2023 Disabilities Answer Date Recorded Difficulty concentrating Not on file 024 Difficulty doing errands alone Not on file 0 12/25/2023 Substance Use Answer Date Recorded Used prescription meds for non-medical reasons N ot on file 12/25/2023 Used illegal drugs past 12 months Not on file 12/25/2023 Sex and Gender Information Value Date Recorded Sex Assigned at Not on file Legal Sex Male 11:00 AM CDT Gender Identity Not on file Sexual Orientation Not on file Last Filed Vital Signs Vital Sign Reading Time Taken Comments Blood Pressure 110/56 12/16/2024 10:16 AM EST Pulse 83 12/16/2024 10:16 AM EST Temperature 36.4 C (97.6 F) 12/16/2024 10:16 AM EST Respiratory Rate 20 12/16/2024 10:16 AM EST Oxygen Saturation 100% 12/16/2024 10:16 AM EST Inhaled Oxygen Concentration - - Weight 104.3 kg (230 lb) 12/16/2024 8:49 AM EST Height 182.9 cm (6') 12/16/2024 8:49 AM EST Body Mass Index 31.19 12/16/2024 8:49 AM EST Plan of Treatment Health Maintenance Due Date Last Done Comments Depression Screening (12+) 1957 Hepatitis C Screening 1963 Medicare Initial AWV G0438 04/13/2011 Respiratory Syncytial Virus (RSV) Adult or (1 - 1-dose 75+ series) 2020 COVID-19 VACCINE (2023-2 5 season) 2024 08/07/2023, 09/03/2022, 05/03/2022, Additional history exists Falls Risk Screening 10/13/2024 Influenza Vaccine (Season Ended) 2025 07/21/20, 07/09/2021 Tobacco Cessation Counseling and Screening (12+) 12/16/2025 12/16/2024 DTAP/TDAP/TD VACCINES (3 - T d or Tdap) 05/31/2031 05/31/2021, 05/11/2004 Pneumococcal 50+ years Completed 9, 11/10/2017, 08/18/2008 Shingles Vaccine (Zoster) Completed 10/24/2023, Medical Devices Implanted Type Area Maintainability Engineer Device Identifier Shelf Expiration Date Model / Serial / Lot Iol Uv Clareon +21.0 [id number] - [id number] Implanted:Qty: 1 on 11/18/2024 by Julianna Mendez MD at [facility] IMPLANTS Right: Eye ANDR[facility]S LAB:SURG 08/12/2027 [id number] / [id number] / Iol Uv Clareon +20.5 [id number] - [id number] Implanted:Qty: 1 on 12/16/2024 by Julianna Mendez MD at [facility] IMPLANTS Left: Eye [employer] [facility]:SURG 09/01/2027 [id number] / [id number] / Insurance MEDICARE PART A B MEDICAID QMB [place] [id number] Care Teams Bank Examiner Relationship Specialty Start Date End Date Darian Brunner MD [address] [place] [address] PCP - General Adolescent Medicine 01/01/24
--- OUTSIDE RECORDS SUMMARY | 2025-03-22 09:39 | XMS_ITS | Referral Summary ---
Author Organization [employer] [facility] [employer] Address [address] [place] [address] Care Team Providers Care Trauma Nurse Name Role Phone Darian Brunner MD Primary Care Provider + [phone] Allergies No known active allergies Medications acyclovir [...] Date Celestino rded Speak language other than Solomon Islander at home Not on file 12/25/2023 Want [...] 12/16/2024 8:49 AM EST Plan of Treatment Not on file Medical Devices Implanted Type Area Historical Society Director Device Identifier Shelf Expiration Date Model / Serial / Lot Iol Uv Clareon +21.0 [id number] - [id number] Implanted:Qty: 1 on 11/18/2024 by Julianna Mendez MD at [facility] IMPLANTS Right: Eye [employer] [facility]:SURG 08/12/2027 [id number] / [id number] / Iol Uv Clareon +20.5 [id number] - [id number] Implanted:Qty: 1 on 12/16/2024 by Julianna Mendez MD at [facility] IMPLANTS Left: Eye [employer]:SURG 09/01/2027 [id number] / [id number] / Insurance MEDICARE PART A B MEDICAID QMB Care Teams Trauma Nurse Relationship Specialty Start Date End Date Darian Brunner MD [address] [place] [address] PCP - General Adolescent Medicine 01/01/24
--- OUTSIDE RECORDS SUMMARY | 2025-03-22 09:39 | XMS_ITS | Patient Health Record ---
Author Organization [facility] Address [address] [facility] [address] [place] [address] Care Team Providers Care [employer] Name Role Phone Darian Brunner Primary Care Provider Lisa Jones Unavailable [phone] Migration, Provider Unavailable Unavailable Allergies No Known Allergies Reason For Referral No Information Medications Medication SIG (Take, Route, Frequency, Duration) Notes Start Date End Date Status Omeprazole Magnesium 20 MG 1 cap(s) orally once a day for 90 days Active Selenium Sulfide 2.25 % 1 miguel a applied topically 2 times a week for 30 day(s) 08/20/2019 Active ICaps AREDS Formula - as directed orally for 30 day(s) Active Acyclovir 800 MG 1 tab(s) orally once a day for 10 days Active CHEMOTHERAPY *Please review f or potential replacement for e-prescription and drug interaction check* Active Atorvastatin Calcium 40 MG 1 tab(s) orally once a day for 90 days Active Tamsulosin HCl 0.4 MG 2 caps orally once a day at bedtime for 90 days Active busPIRone HCl 10 MG 1-1.5 tabs orally three times a day prn anxiety for 90 days Active Cyclobenzaprine HCl 10 MG 1 tab(s) orally every 8 hrs as needed for back spasm for 90 days 06/18/2019 Active Breo Ellipta 100 MCG-25 MCG/INH 1 PUFF BY MOUTH ONCE DAILY DIRECTED for 90 DAYS *Please review and pick correct strength-formulati on from Medispan options. If intended option is not shown, discontinue and re-order from Quick Search* Active Ventolin HFA 108 (90 Base) MCG/ACT 2 puff(s) inhaled 4 times a day PRN SOA for 90 days 05/11/2018 Active Propranolol HCl 10 MG 1 tab(s) orally 2 times a day for 30 days Active amLODIPine Besylate 5 MG 1 tab(s) orally once a day for 90 days Active Levocetirizine Dihydrochloride 5 MG 1 tab(s) orally once a day (in the evening) for 90 days Active Escitalopram Oxalate 20 MG 1 tab(s) orally once a day for 90 days Active Fluticasone Propionate 50 MCG/ACT 1 spray(s) in each nostril once a day for 90 days Active Meloxicam 15 MG 1 tab(s) orally once a day for 90 days Active oxyCODONE-Acetaminophen 10-325 MG 1 tab(s) orally three times daily for 30 days 03/02/2025 Active Immunizations Vaccine Route Administration Date Status Comme nts Arexvy IM Intramuscular 12/26/2023 Administered Fluzone High Dose IM Intramuscular 07/09/2021 Administered Fluzone High Dose IM Intramuscular 07/21/2023 Administered Fluzone High Dose IM Intramuscular 07/13/2024 Administered Pneumovax 23 IM Intramuscular 04/30/2019 Administered Prevnar PCV-13 (Pneumococcal conjugate 13) IM Intramuscular 11/10/2017 Administered SHINGRIX IM Intramuscular 08/04/2023 Administered SHINGRIX IM Intramuscular 10/24/2023 Administered Social History Tobacco Use: Social History Observation Description Date Details (start date - stop date) Former Smoker NA - NA Smoking: Question Answer Notes Are you a: former smoker 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 Problems Problem Type SNOMED Code ICD Code Onset Dates Problem Status W/U Status Risk Notes Problem 886888096 Mixed hyperlipidemia (E78.2) Active confirmed Problem 75320227 Other chronic pain (G89.29) Active confirmed Problem Essential hypertension (30387886) Essential (primary) hypertension (I10) Active confirmed Problem 997763842 Paroxysmal atria l fibrillation (I48.0) Active confirmed Problem 69452496 Simple chronic bronchitis (J41.0) Active confirmed Problem 75490933 Essential hypertension (I10) Active confirmed Problem 399741087 Seasonal allergies (J30.2) Active confirmed Problem 443357693 COPD exacerbatio n (J44.1) Active confirmed Problem 641443538 BMI 30.0-30.9,adult (Z68.30) Active confirmed Problem Inflammatory polyarthropathy (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, 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) Active confirmed Problem 09178960 Chronic obstructive pulmonary disease, unspecified COPD type (J44.9) Active confirmed Problem 788110388 Non morbid obesity due to excess calories (E66.09) Active confirmed Problem 814265758 BMI 37.0-37.9, adult (Z68.37) Active confirmed Problem 352729997 BMI 36.0-36.9,adult (Z68.36) Active confirmed Problem 306853350 Benign essential tremor (G25.0) Active confirmed Problem Urinary hesitanc y (R39.11) Active confirmed Problem 78254030 ADELINE (generalized anxiety disorder) (F41.1) Active confirmed Problem 236854622 Benign prostatic hyperplasia with lower urinary tract symptoms, unspecified morphology (N40.1) Active confirmed Problem 711681360 Dupuytren's contracture of both hands (M72.0) Active confirmed Problem 07530426074836 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) Active confirmed Problem Myelodysplastic syndrome (930188437) MDS (myelodysplastic syndrome) (D46.9) Active confirmed Vital Signs Heart Rate 68 /min 12/31/2024 Temperature 97.8 degrees Fahrenheit 12/31/2024 Blood pressure diastolic 68 mm Hg 12/31/2024 Height 5 ft 8 in in 12/31/2024 Blood pressure systolic 125 mm Hg 12/31/2024 Weight 232 lbs 12/31/2024 BMI 35.27 kg/m2 12/31/2024 Encounters Encounter Location Date Provider Diagnosis [facility] [address] [place] [address] 01/15/2025 Provider Migration Essential hypertension I10 and ADELINE (generalized anxiety disorder) F41.1 [facility] [address] [address] 03/29/2024 Lisa McNees Paroxysmal atrial fibrillation I48.0 ; MDS (myelodysplastic syndrome) D46.9 ; Benign prostatic hyperplasia with lower urinary tract symptoms, unspecified morphology N40.1 ; Essential (primary) hypertension I10 ; Chronic obstructive pulmonary disease, unspecified COPD type J44.9 ; Dupuytren's contracture of both hands M72.0 ; ADELINE (generalized anxiety disorder) F41.1 ; Mixed hyperlipidemia E78.2 ; Arthritis, multiple joint involvement M12.9 ; Tremor R25.1 and Seasonal allergies J30.[address] [address] 06/24/2024 Darian Besson Cancer related pain G89.3 ; Chronic constipation K59.09 ; Essential hypertension I10 and Hospital discharge follow-up Z09 [address] [address] 07/13/2024 Darian Besson Cancer related pain G89.3 ; Essential hypertension I10 ; Immunization(s) administered Z23 and Encounter for immunization Z23 [address] [address] 12/31/2024 Lisa McNees Paroxysmal atrial fibrillation I48.0 ; MDS (myelodysplastic syndrome) D46.9 ; Tremor R25.1 ; Benign prostatic hyperplasia with lower urinary tract symptoms, unspecified morphology N40.1 ; Essential (primary) hypertension I10 ; Chronic obstructive pulmonary disease, unspecified COPD type J44.9 ; Dupuytren's contracture of both hands M72.0 ; ADELINE (generalized anxiety disorder) F41.1 ; Mixed hyperlipidemia E78.2 and Arthritis, multiple joint involvement M12.9 [facility] [address] [place] [address] 03/30/2024 Lisa McNees Simple chronic bronchitis J41.0 [facility] [address] [place] [address] 05/03/2024 Darian Besson Skin lesion L98.9 an d Arthritis, multiple joint involvement M12.9 [facility] [address] [place] [address] 05/25/2024 Darian Besson [facility] [address] [place] [address] 05/25/2024 Lisa McNees [facility] [address] [place] [address] 06/18/2024 Darian Besson [facility] [address] [place] [address] 07/19/2024 Darian Besson [facility] [address] [place] [address] 08/02/2024 Darian Besson Cancer related pain G89.3 [facility] [address] [place] [address] 08/09/2024 Darian Besson [facility] [address] [place] [address] 09/02/2024 Darian Besson Cancer related pain G89.3 [facility] [address] [place] [address] 10/04/2024 Darian Besson Cancer related pain G89.3 [facility] [address] [place] [address] 10/11/2024 Darian Besson Seasonal allergies J30.2 [facility] [address] [place] [address] 12/17/2024 Darian Besson ADELINE (generalized anxiety disorder) F41.1 [facility] [address] [place] [address] 12/31/2024 Lisa McNees Essential hypertensi on I10 [facility] [address] [place] [address] 12/31/2024 Darian Besson [facility] [address] [address] 01/25/2025 Darian Besson Cancer related pain G89.3 [facility] [address] [address] 02/25/2025 Darian Besson [facility] [address] [address] 03/02/2025 Darian Besnelson Cancer related pain G89.3 Assessments Encounter Date Diagnosis (ICD Code) Assessment Notes Treatment Notes Treatment Clinical Notes Section Notes 03/29/2024 Paroxysmal atrial fibrillation (ICD-10 - I48.0) Regular and rate controlled. Keep FU with Dr. Whitt for [facility] clearance 03/29/2024 MDS (myelodysplastic syndrome) (ICD-10 - D46.9) Stable at this time. Keep FU with oncology 03/30/2024 Simple chronic bronchitis (ICD-10 - J41.0) 05/03/2024 Skin lesion (ICD-10 - L98.9) 06/24/2024 Chronic constipation (ICD-10 - K59.09) Stable. Improving after hospital regimen 06/24/2024 Cancer related pain (ICD-10 - G89.3) Overall doing well. Will increase oxycodone to 10 mg. Discussed doing 3 times a day frequency. Discussed that he could add 1 Tylenol to the regimen. Hold on Mobic. Follow-up with me in 2 weeks to assess how pain is doing. 07/13/2024 Essential hypertension (ICD-10 - I10) - BP today 120/54, does occasionally have dizziness/lighth eadedness, denies falls - on norvasc 10 PLAN - decrease norvasc to 5 mg daily 07/13/2024 Cancer related pain (ICD-10 - G89.3) - 2 weeks ago percocet was increased to 325-10 TID, patient is happy with this regimen PLAN - cont percocet TID prn - cont tylenol prn - hold mobic given thrombocytopenia , does get labs with oncology and can resume at their discretion 08/02/2024 Cancer related pain (ICD-10 - G89.3) 09/02/2024 Cancer related pain (ICD-10 - G89.3) 10/04/2024 Cancer related pain (ICD-10 - G89.3) 10/11/2024 Seasonal allergies (ICD-10 - J30.2) 12/17/2024 ADELINE (generalized anxiety disorder) (ICD-10 - F41.1) 12/31/2024 Paroxysmal atrial fibrillation (ICD-10 - I48.0) Regular and rate controlled. Keep FU with cardiology 12/31/2024 MDS (myelodysplastic syndrome) (ICD-10 - D46.9) Stable at this time. Keep FU with oncology. Dr. Whitt note reviewed 12/31/2024 Essential hypertension (ICD-10 - I10) 01/15/2025 Essential hypertension (ICD-10 - I10) 01/25/2025 Cancer related pain (ICD-10 - G89.3) 03/02/2025 Cancer related pain (ICD-10 - G89.3) 12/31/2024 Tremor (ICD-10 - R25.1) At baseline 07/13/2024 Immunization(s) administered (ICD-10 - Z23) 06/24/2024 Essential hypertension (ICD-10 - I10) Blood pressure good today, on amlodipine follow-up, encouraged patient to continue taking this even though he does not think he has a blood pressure problem 05/03/2024 Arthritis, multiple joint involvement (ICD-10 - M12.9) 03/29/2024 Benign prostatic hyperplasia with lower urinary tract symptoms, unspecified morphology (ICD-10 - N40.1) No acute urinary symptoms. 03/29/2024 Essential (primary) hypertension (ICD-10 - I10) Blood pressure well controlled 06/24/2024 Hospital discharge follow-up (ICD-10 - Z09) Reviewed H&P and discharge summary, reconciled meds as noted above. 07/13/2024 Encounter for immunization (ICD-10 - Z23) - administer flu shot today - will give prevnar 20 at next visit 12/31/2024 Benign prostatic hyperplasia with lower urinary tract symptoms, unspecified morphology (ICD-10 - N40.1) No acute urinary symptoms. 12/31/2024 Essential (primary) hypertension (ICD-10 - I10) Blood pressure at goal 03/29/2024 Chronic obstructive pulmonary disease, unspecified COPD type (ICD-10 - J44.9) Restart breo. Continue albuterol prn 03/29/2024 Dupuytren's contracture of both hands (ICD-10 - M72.0) Well controlled on meloxicam 12/31/2024 Chronic obstructive pulmonary disease, unspecified COPD type (ICD-10 - J44.9) Restart breo. Continue albuterol prn 12/31/2024 Dupuytren's contracture of both hands (ICD-10 - M72.0) Well controlled on meloxicam 03/29/2024 ADELINE (generalized anxiety disorder) (ICD-10 - F41.1) Increase buspar to 1.5 tabs PRN as above. 03/29/2024 Mixed hyperlipidemia (ICD-10 - E78.2) LDL with good control. No changes 01/15/2025 ADELINE (generalized anxiety disorder) (ICD-10 - F41.1) 12/31/2024 ADELINE (generalized anxiety disorder) (ICD-10 - F41.1) Continue propranolol and buspar. At baseline 12/31/2024 Mixed hyperlipidemia (ICD-10 - E78.2) LDL with good control. No changes 03/29/2024 Arthritis, multiple joint involvement (ICD-10 - M12.9) At baseline on current regimen. CSA updated. quoc report reviewed and is appropriate - discussed ongoing use of controlled medication and safety associated with these medications 03/29/2024 Tremor (ICD-10 - R25.1) At baseline 12/31/2024 Arthritis, multiple joint involvement (ICD-10 - M12.9) At baseline on current regimen. CSA updated. quoc report reviewed and is appropriate - discussed ongoing use of controlled medication and safety associated with these medications 03/29/2024 Seasonal allergies (ICD-10 - J30.2) 03/29/2024 Other Plan Of Treatment Pending Test Test Name Order Date Ankle/Brachial Index--Segmental BPs 10/14 H-PSA SCREEN 06/19/2016 C-CMP 06/14/2016 C-CMP 11/10/2017 C-LIPID PANEL 11/10/2017 C-LIPID PANEL 06/14/2016 C-TSH 06/14/2016 C-HGBA1C 05/29/2020 VENIPUNCT, ROUTINE* 06/21/2016 M-Comprehensive Metabolic Panel 10/21/19 23 M-Comprehensive Metabolic Panel 02/22/20 23 M-Comprehensive Metabolic Panel 10/18/19 22 M-Comprehensive Metabolic Panel 01/01/20 25 M-Hemoglobin A1C 05/31/2022 M-Hemoglobin A1C 10/18/2021 M-Lipid Panel 10/21/2022 M-Lipid Panel 05/31/2022 M-Lipid Panel 10/18/2021 M-Lipid Panel 12/31/2024 M-Lipid Panel 02/21/2023 M-PSA Total+% Free 05/31/2022 Insurance Providers Payer Name Payer Address Payer Phone Subscriber Number Group Number Insured Name Patient Relationship to Insured Coverage Start Date Coverage End Date [place] [address] [place] [phone] [id number] Glenn Marti Self - patient is the insured MEDICAID EDS [address] [place] [address] [id number] Glenn Marti Self - patient is the insured [employer] [address] [place] [address] ACL Glenn Marti Self - patient is the insured Medications Administered Medication Instructions Date of Administration Dosage Notes Ceftriaxone 500 10/03/2020 500 mg Triamcinolone Acetonide 40mg Injection 08/25/2020 1 mL Kenalog 05/16/2016 1 mL Medical (General) History Medical History History ICD Code BPH Renal stones Former smoker ETOh abuse Dupytren's contracture bilat palms Seborrheic dermatitis HTN HLD Anxiety Spermatocele, bilat Surgical History Surgery Date(Month/Year) Hospitalization History Reason Date(Month/Year) Cancer- H kidney stone
--- NOTE | 2025-03-22 09:47 | PC.NURSE ---
03/22/25 0940 Pt here for procrit inj and to check weekly cbc. Veipuncture performed to pt's lt ac x 1 stick and blood obtained for labs. Needle withdrawn and site secured with 2x2 gauze and coban.
[2025-03-22 09:49] LABS: Eosinophils # 0.1 Kmm3 (0.0-0.4); Hematocrit 26.8 % (42.0-52.0); Hemoglobin 8.6 g/dL (14.1-18.0); Immature Granulocytes # 0.01 10^3uL; Lymphocytes # 0.7 K/mm3 (0.7-4.5); Lymphocytes % 66.3 % (10-50); Mean Corpuscular HGB Conc 32.1 g/dL (31.8-35.4); Mean Corpuscular Hemoglobin 35.2 pg (27.0-31.2); Mean Corpuscular Volume 109.8 fl (80-94); Monocytes # 0.1 K/mm3 (0.1-1.0); Monocytes % 9.9 % (1.7-9.3); Neutrophils # 0.2 K/mm3 (1.8-7.8); Neutrophils % 17.8 % (37.0-80.0); Nucleated Red Blood Cells # 0 10^3/uL; Nucleated Red Blood Cells % 0 %; Red Blood Count 2.44 M/mm3 (4.60-6.20); Red Cell Distribution Width 18.7 % (11.5-17.5); Red Cell Distribution Width-SD 75.7 fL
[2025-03-22 09:51] VITALS: BP 116/56; PULSE 82; RESP 20; TEMP 36.7; O2SAT 98
[2025-03-22] MEDS: EPOETIN 20,000 UNITS/ML MDV 60000 UNIT SUBCUT (09:51)
[2025-03-22 09:55] LABS: Platelet Count 22 K/mm3 (142-424)
[2025-03-22 09:59] LABS: MANUAL DIFFERENTIAL MANUAL DIFFERENTIAL (MANUAL DIFF); Mean Platelet Volume 13.5 fl (7.4-10.4)
[2025-03-22 10:37] LABS: Eosinophils % 6 % (0-3); Lymphocytes % 66 % (10-50); Monocytes % 6 % (2-9); Neutrophils % 22 % (42-76); Platelet Estimate Marked Decrease; RBC Morphology Normal; Total Cells Counted 50
== END 2025-03-22 10:13 | disposition home or self-care (01) ==
LOC: INF 09:33
PROVIDERS: PCP Internal Medicine Adolescent Medicine; Visit Provider Internal Medicine Medical Oncology
DX: D46.9 Myelodysplastic syndrome, unspecified (principal); D64.9 Anemia, unspecified
CPT/HCPCS: 36415; 85007; 85025; 85027; 96372; J0885

== ENCOUNTER 2025-03-29 09:17 | Outpatient (CLI) | payer MEDICARE, MEDICAID, SELFPAY ==
--- OUTSIDE RECORDS SUMMARY | 2024-11-16 08:30 | XMS_ITS ---
Author Organization [facility] PE D CATAR[facility] Address [address] [place] [address] Care Team Providers Care Cushion Padder Name Role Phone Darian Brunner Primary Care Provider REASON FOR VISIT [facility] Encounters Encounter Location Date Provider Diagnosis [place] [address] [address] 11/16/2024 Darian Brunner Plan Of Treatment No Information Progress Notes * Glenn MARTI BDOB:[birth year] (79 yo M)Acc No.[id number]:11/16/2024 HOSP F/U Patient: Theresa PACK Glenn Faulkner Provider: Rossy Brunner MD :1945 A ge:79 Y S ex:Male Date:11/16/2024 Address:[address], [id number] Subjective: * Chief Complaints: * 1 . [facility]. * Medical History: Objective: * Vitals: Assessment: Plan: * Treatment: * * Electronic signature of Vasyl Brunner MD FAAP on 03/29/2025 at 09:22 AM EDT Sign off status: Pending * Provider: Rossy Brunner MD Date: 11/16/2024 Generated for Printi ng/Faxing/eTransmitting on: 0 03/29/2025 09:22 AM EDT
--- OUTSIDE RECORDS SUMMARY | 2025-01-15 17:30 | XMS_ITS ---
Author Organization [facility] Address [address] [place] [address] Care Team Providers Care Clean Room Operator Name Role Phone Darian Brunner Primary Care Provider Migration, Provider Unavailable Unavailable REASON FOR VISIT Multum To [facility] Conversion Encounter Medications Medication SIG (Take, Route, Frequency, Duration) Notes Start Date End Date Status oxyCODONE-Acetaminophen 10-325 MG 1 tab(s) orally three times daily for 30 days 11/12/2024 Active Acyclovir 800 MG 1 tab(s) orally once a day for 10 days Active Meloxicam 15 MG 1 tab(s) orally once a day for 90 days Active Tamsulosin HCl 0.4 MG 2 caps orally once a day at bedtime for 90 days Active Cyclobenzaprine HCl 10 MG 1 tab(s) orally every 8 hrs as needed for back spasm for 90 days 06/18/2019 Active Escitalopram Oxalate 20 MG 1 tab(s) orally once a day for 90 days Active Omeprazole Magnesium 20 MG 1 cap(s) orally once a day for 90 days 02/09/2024 Active Breo Ellipta 100 MCG-25 MCG/INH 1 PUFF BY MOUTH ONCE DAILY DIRECTED for 90 DAYS *Please review and pick correct strength-formulati on from [facility] options. If intended option is not shown, discontinue and re-order from Quick Search* Active Ventolin HFA 108 (90 Base) MCG/ACT 2 puff(s) inhaled 4 times a day PRN SOA for 90 days 05/11/2018 Active Atorvastatin Calcium 40 MG 1 tab(s) orally once a day for 90 days 05/11/2019 Active Propranolol HCl 10 MG 1 tab(s) orally 2 times a day for 30 days Active amLODIPine Besylate 5 MG 1 tab(s) orally once a day for 90 days Active Selenium Sulfide 2.25 % 1 miguel a applied topically 2 times a week for 30 day(s) 08/20/2019 Active ICaps AREDS Formula - as directed orally for 30 day(s) Active CHEMOTHERAPY *Please review f or potential replacement for e-prescription and drug interaction check* Active Levocetirizine Dihydrochloride 5 MG 1 tab(s) orally once a day (in the evening) for 90 days Active Fluticasone Propionate 50 MCG/ACT 1 spray(s) in each nostril once a day for 90 days Active busPIRone HCl 10 MG 1-1.5 tabs orally three times a day prn anxiety for 90 days Active Encounters Encounter Location Date Provider Diagnosis [facility] [address] [facility] [address] [place] [address] 01/15/2025 Provider Migration Essential hypertension I10 and ADELINE (generalized anxiety disorder) F41.1 Assessments Encounter Date Diagnosis (ICD Code) Assessment Notes Treatment Notes Treatment Clinical Notes Section Notes 01/15/2025 Essential hypertension (ICD-10 - I10) 01/15/2025 ADELINE (generalized anxiety disorder) (ICD-10 - F41.1) Plan Of Treatment Medication Medication Name Sig Start Date Stop Date Notes amLODIPine Besylate 5 MG 1 tab(s) orally once a day for 90 days Levocetirizine Dihydrochlori de 5 MG 1 tab(s) orally once a day (in the evening) for 90 days Fluticasone Propionate 50 MCG/ACT 1 spra y(s) in each nostril once a day for 90 days busPIRone HCl 10 MG 1-1.5 tabs orally th ree times a day prn anxiety for 90 days Progress Notes * Glenn MARTI BDOB:[birth year] (79 yo M)Acc No.[id number]:01/15/2025 Patient: Glenn GILMORE Provider: Caroline cedeño Migration :1945 A ge:79 Y S ex:Male Date:01/15/2025 Address:[address] [place] [address] , [place], [id number] Pcp:Darian Brunner Subjective: * Chief Complaints: * 1 . [facility] En[facility]. * Medical History: * Medications: [...] *Please review and pick correct strength-formulation from [facility] options. If intended option is not shown, [...] Electronic signature of Prov ider Migration on 03/29/2025 at 09:22 AM EDT Sign off status: Pending * Provider: Caroline cedeño Migration Date: 0 01/15/2025 Generated for Claudette hess/Vinicio/Etienne on: 0 03/29/2025 09:22 AM EDT
[2025-03-29 09:21] VITALS: BMI 32.1
--- OUTSIDE RECORDS SUMMARY | 2025-03-29 09:22 | XMS_ITS | Referral Summary ---
Author Organization [facility] Address [address] [place] [address] Care Team Providers Care Family Practice Physician Assistant Name Role Phone Darian Brunner MD Primary Care Provider + [phone] Allergies No known active allergies Medications acyclovir [...] Date Celestino rded Speak language other than Cambodian at home Not on file 12/25/2023 Want [...] on file Medical Devices Implanted Type Area Alcoholic Counselor Device Identifier Shelf Expiration Date Model / Serial / Lot Iol Uv Clareon +21.0 [id number] - [id number] Implanted:Qty: 1 on 11/18/2024 by Julianna Mendez MD at [facility] IMPLANTS Right: Eye [employer] [facility]URG 08/12/2027 [id number] / [id number] / Iol Uv Clareon +20.5 [id number] - [id number] Implanted:Qty: 1 on 12/16/2024 by Julianna Mendez MD at [facility] IMPLANTS Left: Eye [employer] 09/01/2027 [id number] / [id number] / Insurance MEDICARE PART A B MEDICAID Q[employer] Care Teams Family Practice Physician Assistant Relationship Specialty Start Date End Date Darian Brunner MD [address] [place] [address] PCP - General Adolescent Medicine 01/01/24
--- OUTSIDE RECORDS SUMMARY | 2025-03-29 09:22 | XMS_ITS | Patient Health Record ---
Author Organization [facility] Address [address] [facility] [address] [place] [address] Care Team Providers Care Security Operations Specialist Name Role Phone Darian Brunner Primary Care Provider Lisa Jones Unavailable [phone] Migration, Provider Unavailable Unavailable Allergies No Known [...] Problem Status W/U Status Risk Notes Problem 246313564 Mixed hyperlipidemia (E78.2) Active confirmed Problem 56339684 Other chronic pain (G89.29) Active confirmed Problem Essential hypertension (98333288) Essential (primary) hypertension (I10) Active confirmed Problem 816539887 Paroxysmal atria l fibrillation (I48.0) Active confirmed Problem 56301686 Simple chronic bronchitis (J41.0) Active confirmed Problem 82959432 Essential hypertension (I10) Active confirmed Problem 287187771 Seasonal allergies (J30.2) Active confirmed Problem 739461400 COPD exacerbatio n (J44.1) Active confirmed Problem 279043275 BMI 30.0-30.9,adult (Z68.30) Active confirmed Problem Inflammatory polyarthropathy (499788220) Arthritis, 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) Active confirmed Problem 04345546 Chronic obstructive pulmonary disease, unspecified COPD type (J44.9) Active confirmed Problem 618598710 Non morbid obesity due to excess calories (E66.09) Active confirmed Problem 385151905 BMI 37.0-37.9, adult (Z68.37) Active confirmed Problem 818063058 BMI 36.0-36.9,adult (Z68.36) Active confirmed Problem 160943730 Benign essential tremor (G25.0) Active confirmed Problem Urinary hesitanc y (R39.11) Active confirmed Problem 37706514 ADELINE (generalized anxiety disorder) (F41.1) Active confirmed Problem 591137673 Benign prostatic hyperplasia with lower urinary tract symptoms, unspecified morphology (N40.1) Active confirmed Problem 808786577 Dupuytren's contracture of both hands (M72.0) Active confirmed Problem 95969745829942 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) Active confirmed Problem Myelodysplastic syndrome (995428718) MDS (myelodysplastic syndrome) (D46.9) Active confirmed Vital Signs Heart Rate 68 /min 12/31/2024 Temperature 97.8 degrees Fahrenheit 12/31/2024 Blood pressure diastolic 68 mm Hg 12/31/2024 Height 5 ft 8 in in 12/31/2024 Blood pressure systolic 125 mm Hg 12/31/2024 Weight 232 lbs 12/31/2024 BMI 35.27 kg/m2 12/31/2024 Encounters Encounter Location Date Provider Diagnosis [facility] [address] [place] [address] 01/15/2025 Provider Migration Essential hypertension I10 and ADELINE (generalized anxiety disorder) F41.1 [facility] [address] [address] 03/29/2024 Lisa McNees Paroxysmal atrial fibrillation I48.0 [...] ; Tremor R25.1 and Seasonal allergies J30.[address] [address] 06/24/2024 Darian Besson Cancer related pain G89.3 ; Chronic constipation K59.09 ; Essential hypertension I10 and Hospital discharge follow-up Z09 [address] [address] 07/13/2024 Darian Besson Cancer related pain G89.3 ; Essential hypertension I10 ; Immunization(s) administered Z23 and Encounter for immunization Z23 [address] [address] 12/31/2024 Lisa McNees Paroxysmal atrial fibrillation I48.0 [...] E78.2 and Arthritis, multiple joint involvement M12.9 [facility] [address] [place] [address] 03/30/2024 Lisa McNees Simple chronic bronchitis J41.0 [facility] [address] [place] [address] 05/03/2024 Darian Besson Skin lesion L98.9 an d Arthritis, multiple joint involvement M12.9 [facility] [address] [place] [address] 05/25/2024 Darian Besson [facility] [address] [place] [address] 05/25/2024 Lisa McNees [facility] [address] [place] [address] 06/18/2024 Darian Besson [facility] [address] [place] [address] 07/19/2024 Darian Besson [facility] [address] [place] [address] 08/02/2024 Darian Besson Cancer related pain G89.3 [facility] [address] [place] [address] 08/09/2024 Darian Besson [facility] [address] [place] [address] 09/02/2024 Darian Besson Cancer related pain G89.3 [facility] [address] [place] [address] 10/04/2024 Darian Besson Cancer related pain G89.3 [facility] [address] [place] [address] 10/11/2024 Darian Besson Seasonal allergies J30.2 [facility] [address] [place] [address] 12/17/2024 Darian Besson ADELINE (generalized anxiety disorder) F41.1 [facility] [address] [place] [address] 12/31/2024 Lisa McNees Essential hypertensi on I10 [facility] [address] [place], [place] [address] 12/31/2024 Darian Besson [facility] [address] [address] 01/25/2025 Darian Besson Cancer related pain G89.3 [facility] [address] [address] 02/25/2025 Darian Besson [facility] [address] [address] 03/02/2025 Darian Besnelsno Cancer related pain G89.3 Assessments Encounter Date Diagnosis (ICD Code) Assessment Notes Treatment Notes Treatment Clinical Notes Section Notes 03/29/2024 Paroxysmal atrial fibrillation (ICD-10 - I48.0) Regular and rate controlled. Keep FU with Dr. Whitt for [facility] clearance 03/29/2024 MDS (myelodysplastic syndrome) [...] 10/11/2024 Seasonal allergies (ICD-10 - J30.2) 12/17/2024 ADELNIE (generalized anxiety disorder) (ICD-10 - F41.1) 12/31/2024 [...] Index--Segmental BPs 10/14 H-PSA SCREEN 06/19/2016 C-CMP 11/10/2017 C-CMP 06/14/2016 C-LIPID PANEL 06/14/2016 C-LIPID PANEL 11/10/2017 C-TSH 06/14/2016 C-HGBA1C 05/29/2020 VENIPUNCT, ROUTINE* 06/21/2016 M-Comprehensive Metabolic Panel 10/18/19 22 M-Comprehensive Metabolic Panel 01/01/20 25 M-Comprehensive Metabolic Panel 10/21/19 23 M-Comprehensive Metabolic Panel 02/22/20 23 M-Hemoglobin A1C 05/31/2022 M-Hemoglobin A1C 10/18/2021 M-Lipid Panel 10/18/2021 M-Lipid Panel 05/31/2022 M-Lipid Panel 12/31/2024 M-Lipid Panel 02/21/2023 M-Lipid Panel 10/21/2022 M-PSA Total+% Free 05/31/2022 Insurance Providers Payer Name Payer Address Payer Phone Subscriber Number Group Number Insured Name Patient Relationship to Insured Coverage Start Date Coverage End Date [place] [address] [id number] Glenn Marti Self - patient is the insured MEDICAID EDS [address] [place] [address] [id number] Glenn Marti Self - patient is the insured [employer] [address] [place] [address] [phone] ACL Glenn Marti Self - patient is [...]
--- OUTSIDE RECORDS SUMMARY | 2025-03-29 09:23 | XMS_ITS | Clinical Summary ---
Author Organization [employer] Address [address] [place] [address] Care Team Providers Care Dairy Equipment Installer Name Role Phone Darian Brunner MD Primary Care Provider + [phone] Allergies No known active allergies Medications acyclovir [...] Date Celestino rded Speak language other than Urugu[place] at home Not on file 12/25/2023 Want [...] Completed 10/24/2023, Medical Devices Implanted Type Area Timber Deadener Device Identifier Shelf Expiration Date Model / Serial / Lot Iol Uv Clareon +21.0 [id number] - [id number] Implanted:Qty: 1 on 11/18/2024 by Julianna Mendez MD at [facility] IMPLANTS Right: Eye [employer]:SURG 08/12/2027 [id number] / [id number] / Iol Uv Clareon +20.5 [id number] - [id number] Implanted:Qty: 1 on 12/16/2024 by Julianna Mendez MD at [facility] IMPLANTS Left: Eye [employer]:SURG 09/01/2027 [id number] / [id number] / Insurance MEDICARE PART A B MED[place]ID [place] [id number] Care Teams Dairy Equipment Installer Relationship Specialty Start Date End Date Darian Brunner MD [address] [place] [address] PCP - General Adolescent Medicine 01/01/24
[2025-03-29] MEDS: EPOETIN 20,000 UNITS/ML MDV 60000 UNIT SUBCUT (09:35)
[2025-03-29 09:38] VITALS: BP 131/58; PULSE 83; RESP 18; O2SAT 94
[2025-03-29 09:38] LABS: Basophils % 0.8 % (0.1-2.0); Eosinophils # 0.1 Kmm3 (0.0-0.4); Eosinophils % 4.7 % (0.1-12.0); Hematocrit 24.9 % (42.0-52.0); Hemoglobin 7.9 g/dL (14.1-18.0); Immature Granulocytes # 0.01 10^3uL; Immature Granulocytes % 0.8 %; Lymphocytes # 0.6 K/mm3 (0.7-4.5); Lymphocytes % 45.7 % (10-50); Mean Corpuscular HGB Conc 31.7 g/dL (31.8-35.4); Mean Corpuscular Hemoglobin 35.6 pg (27.0-31.2); Mean Corpuscular Volume 112.2 fl (80-94); Monocytes # 0.3 K/mm3 (0.1-1.0); Monocytes % 20.9 % (1.7-9.3); Neutrophils # 0.4 K/mm3 (1.8-7.8); Neutrophils % 27.1 % (37.0-80.0); Nucleated Red Blood Cells # 0 10^3/uL; Nucleated Red Blood Cells % 0 %; Red Blood Count 2.22 M/mm3 (4.60-6.20); Red Cell Distribution Width 19.6 % (11.5-17.5); Red Cell Distribution Width-SD 78.6 fL
[2025-03-29 09:40] LABS: White Blood Count 1.3 K/mm3 (4.8-10.8)
[2025-03-29 09:41] LABS: Platelet Count 23 K/mm3 (142-424)
[2025-03-29 09:42] LABS: MANUAL DIFFERENTIAL MANUAL DIFFERENTIAL (MANUAL DIFF)
[2025-03-29 09:47] LABS: Albumin Level 3.7 g/dl (3.5-5.0); Chloride 111 mmol/L (98-107); Sodium 141 mmol/L (136-145)
[2025-03-29 09:50] LABS: Alanine Aminotransferase 20 U/L (12-78); Albumin/Globulin Ratio 1.3 (1.1-1.8); Alkaline Phosphatase 161 U/L (38-126); Aspartate Amino Transferase 29 U/L (17-59); Bilirubin,Total 0.7 mg/dl (0.2-1.3); Blood Urea Nitrogen 20 mg/dl (9-20); Calcium 8.8 mg/dl (8.4-10.2); Carbon Dioxide 24 mmol/L (22.0-30.0); Creatinine Clearance Estimated 65 mL/min (50-200); Estimated Glomerular Filt Rate 49 ml/min (>60); GFR (African American) 59 ML/MIN (>60); Globulin 2.8 g/dL (1.3-3.2); Glucose 106 mg/dl (74-100); Total Protein,Serum 6.5 g/dl (6.3-8.2)
[2025-03-29 10:14] LABS: Eosinophils % 6 % (0-3); Lymphocytes % 58 % (10-50); Monocytes % 8 % (2-9); Neutrophils % 28 % (42-76); Total Cells Counted 50
[2025-03-29 10:15] LABS: Platelet Estimate Marked Decrease; RBC Morphology Normal
[2025-03-29 10:19] LABS: Macrocytosis 2+; Polychromasia 1+
== END 2025-03-29 09:38 | disposition home or self-care (01) ==
LOC: INF 09:19
PROVIDERS: PCP Internal Medicine Adolescent Medicine; Visit Provider Internal Medicine Medical Oncology
DX: D46.9 Myelodysplastic syndrome, unspecified (principal); D64.9 Anemia, unspecified
CPT/HCPCS: 36415; 80053; 85007; 85025; 85027; 96372; J0885

== ENCOUNTER 2025-04-05 09:15 | Outpatient (CLI) | payer MEDICARE, MEDICAID, SELFPAY ==
--- OUTSIDE RECORDS SUMMARY | 2024-11-16 08:30 | XMS_ITS ---
Author Organization [facility] PE D [facility] Address [address] [place] [address] Care Team Providers Care Slotter Operator Helper Name Role Phone Darian Brunner Primary Care Provider REASON FOR VISIT [facility] Encounters Encounter Location Date Provider Diagnosis [place] [address] [address] 11/16/2024 Darian Brunner Plan Of Treatment Next Appt Details Provider Name:Darian Brunner, 04/07/2025 11:15:00 AM, [address] [place] [address], [place], [address], Progress Notes * Glenn MARTI BDOB:[birth year] (79 yo M)Acc No.[id number]:11/16/2024 HOSP F/U Patient: Theresa Glenn PACK Provider: Rossy Brunner MD :1945 A ge:79 Y S ex:Male Date:11/16/2024 Address:[address] [id number] Subjective: * Chief Complaints: * 1 . [facility]. * Medical History: Objective: * Vitals: Assessment: Plan: * Treatment: * * Electronic signature of Vasyl Brunner MD FAAP on 04/05/2025 at 09:20 AM EDT Sign off status: Pending * Provider: Rossy Brunner MD Date: 0 11/16/2024 Generated for Claudette hess/Vinicio/Etienne on: 0 04/05/2025 09:20 AM EDT
--- OUTSIDE RECORDS SUMMARY | 2025-01-15 17:30 | XMS_ITS ---
Author Organization [facility] Address [address] [place] [address] Care Team Providers Care Retail Inventory Control Clerk Name Role Phone Darian Brunner Primary Care Provider [phone] Migration, Provider Unavailable Unavailable REASON FOR VISIT Mult[facility] To [facility] Conversion Encounter Medications Medication SIG (Take, [...] Active Encounters Encounter Location Date Provider Diagnosis [facility] [place] [address] [facility] [address] [place] [address] 01/15/2025 Provider Migration Essential hypertension I10 and [...] a day prn anxiety for 90 days Next Appt Details Provider Name:Darian Meyer Myesha, 04/07/2025 11:15:00 AM, [address] [place] [address], [phone], Progress Notes * Glenn MARTI BDOB:[birth year] (79 yo M)Acc No.[id number]:01/15/2025 Patient: Glenn GILMORE Provider: Caroline White :1945 A ge:79 Y S ex:Male Date:01/15/2025 Address:[address], [place], [id number] Pcp:Darian Brunner Subjective: * Chief Complaints: * 1 . [facility] To [facility] Conversion Encounter. * Medical History: * Medications: [...] *Please review and pick correct strength-formulation from [facility] options. If intended option is [...] Electronic signature of Prov ider Migration on 04/05/2025 at 09:20 AM EDT Sign off status: Pending * Provider: Caroline cedeño Migration Date: 0 01/15/2025 Generated for Claudette hess/Vinicio/Janineitting on: 0 04/05/2025 09:20 AM EDT
--- OUTSIDE RECORDS SUMMARY | 2025-04-05 09:20 | XMS_ITS | Referral Summary ---
Author Organization [employer] Address [address] [place] [address] Care Team Providers Care Customer Solutions Teammate Name Role Phone Darian Brunner MD Primary Care Provider + [phone] Allergies No known active allergies Medications acyclovir [...] Date Celestino rded Speak language other than Emirati at home Not on file 12/25/2023 Want [...] on file Medical Devices Implanted Type Area Echo Vascular Technologist Device Identifier Shelf Expiration Date Model / Serial / Lot Iol Uv Clareon +21.0 [id number] - [id number] Implanted:Qty: 1 on 11/18/2024 by Julianna Mendez MD at [facility] IMPLANTS Right: Eye ANDRÉS 08/12/2027 [id number] / [id number] / Iol Uv Clareon +20.5 [id number] - [id number] Implanted:Qty: 1 on 12/16/2024 by Julianna Mendez MD at [facility] IMPLANTS Left: Eye ANDRÉS 09/01/2027 [id number] / [id number] / Insurance MEDICARE PART A B MEDICAID QMB Care Teams Customer Solutions Teammate Relationship Specialty Start Date End Date Darian Brunner MD [address] [place] [address] PCP - General Adolescent Medicine 01/01/24
--- OUTSIDE RECORDS SUMMARY | 2025-04-05 09:20 | XMS_ITS | Patient Health Record ---
Author Organization [facility] Address [address] [facility] [address] [place] [address] Care Team Providers Care Caterpillar Driver Name Role Phone Darian Brunner Primary Care Provider Lisa Jones Unavailable [phone] Migration, Provider Unavailable Unavailable Allergies No Known [...] times a day for 30 days Active oxyCODONE-Acetaminophen 10-325 MG 1 tab(s) orally three times daily for 30 days 03/02/2025 Active amLODIPine Besylate 5 MG 1 tab(s) [...] once a day for 90 days Active Immunizations Vaccine Route Administration Date Status [...] Problem Status W/U Status Risk Notes Problem 674851075 Mixed hyperlipidemia (E78.2) Active confirmed Problem 44073502 Other chronic pain (G89.29) Active confirmed Problem Essential hypertension (43343606) Essential (primary) hypertension (I10) Active confirmed Problem 643783553 Paroxysmal atria l fibrillation (I48.0) Active confirmed Problem 97823649 Simple chronic bronchitis (J41.0) Active confirmed Problem 66191068 Essential hypertension (I10) Active confirmed Problem 984533826 Seasonal allergies (J30.2) Active confirmed Problem 820983754 COPD exacerbatio n (J44.1) Active confirmed Problem 734207054 BMI 30.0-30.9,adult (Z68.30) Active confirmed Problem Inflammatory polyarthropathy (786253755) Arthritis, 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) Active confirmed Problem 85919269 Chronic obstructive pulmonary disease, unspecified COPD type (J44.9) Active confirmed Problem 478411722 Non morbid obesity due to excess calories (E66.09) Active confirmed Problem 906761691 BMI 37.0-37.9, adult (Z68.37) Active confirmed Problem 698270277 BMI 36.0-36.9,adult (Z68.36) Active confirmed Problem 875372432 Benign essential tremor (G25.0) Active confirmed Problem Urinary hesitanc y (R39.11) Active confirmed Problem 36337495 ADELINE (generalized anxiety disorder) (F41.1) Active confirmed Problem 912066494 Benign prostatic hyperplasia with lower urinary tract symptoms, unspecified morphology (N40.1) Active confirmed Problem 649945386 Dupuytren's contracture of both hands (M72.0) Active confirmed Problem 92573077389125 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) Active confirmed Problem Myelodysplastic syndrome (505003769) MDS (myelodysplastic syndrome) (D46.9) Active confirmed Vital Signs Heart Rate 68 /min 12/31/2024 Temperature 97.8 degrees Fahrenheit 12/31/2024 Blood pressure diastolic 68 mm Hg 12/31/2024 Height 5 ft 8 in in 12/31/2024 Blood pressure systolic 125 mm Hg 12/31/2024 Weight 232 lbs 12/31/2024 BMI 35.27 kg/m2 12/31/2024 Encounters Encounter Location Date Provider Diagnosis [facility] [address] [place], [place] [address] 01/15/2025 Provider Migration Essential hypertension I10 and ADELINE (generalized anxiety disorder) F41.1 [facility] [address] [address] 06/24/2024 Darian Besson Cancer related pain G89.3 ; Chronic constipation K59.09 ; Essential hypertension I10 and Hospital discharge follow-up Z09 [facility] [address] [address] 07/13/2024 Darian Besson Cancer related pain G89.3 ; Essential hypertension I10 ; Immunization(s) administered Z23 and Encounter for immunization Z23 [facility] [address] [address] 12/31/2024 Lisa Robert Paroxysmal atrial fibrillation I48.0 ; MDS (myelodysplastic syndrome) D46.9 ; Tremor R25.1 ; Benign prostatic hyperplasia with lower urinary tract symptoms, unspecified morphology N40.1 ; Essential (primary) hypertension I10 ; Chronic obstructive pulmonary disease, unspecified COPD type J44.9 ; Dupuytren's contracture of both hands M72.0 ; ADELINE (generalized anxiety disorder) F41.1 ; Mixed hyperlipidemia E78.2 and Arthritis, multiple joint involvement M12.9 [facility] [address] [address] 05/03/2024 Darian Besson Skin lesion L98.9 an d Arthritis, multiple joint involvement M12.9 [facility] [address] [facility] [address] [place] [address] 05/25/2024 Darian Besson [facility] [address] [address] 05/25/2024 Lisa McNees [facility] [address] [place] [address] 06/18/2024 Darian Besson [facility] [address] [place] [address] 07/19/2024 Darian Besson [facility] [address] [place] [address] 08/02/2024 Darian Besson Cancer related pain G89.3 [facility] [address] [place] [address] 08/09/2024 Darian Besson [facility] [address] [place] [address] 09/02/2024 Darian Besson Cancer related pain G89.3 [facility] [address] [place] [address] 10/04/2024 Darian Besson Cancer related pain G89.3 [facility] [address] [place] [address] 10/11/2024 Darian Besson Seasonal allergies J30.2 [facility] [address] [place] [address] 12/17/2024 Darian Besson ADELINE (generalized anxiety disorder) F41.1 [facility] [address] [place] [address] 12/31/2024 Lisa McNees Essential hypertension I10 [facility] [address] [place] [address] 12/31/2024 Darian Besson [facility] [address] [place] [address] 01/25/2025 Darian Besson Cancer related pain G89.3 [facility] [address] [place] [address] 02/25/2025 Darian Besson [facility] [address] [place] [address] 03/02/2025 Darian Besson Cancer related pain G89.3 [facility] [address] [place] [address] 04/04/2025 Darian Besson Cancer related pain G89.3 Assessments Encounter Date Diagnosis (ICD Code) Assessment Notes Treatment Notes Treatment Clinical Notes Section Notes 05/03/2024 Skin lesion (ICD-10 - L98.9) 06/24/2024 [...] 03/02/2025 Cancer related pain (ICD-10 - G89.3) 04/04/2025 Cancer related pain (ICD-10 - G89.3) 12/31/2024 Tremor (ICD-10 - R25.1) At baseline 07/13/2024 Immunization(s) administered (ICD-10 - Z23) 06/24/2024 Essential hypertension (ICD-10 - I10) Blood pressure good today, on amlodipine follow-up, encouraged patient to continue taking this even though he does not think he has a blood pressure problem 05/03/2024 Arthritis, multiple joint involvement (ICD-10 - M12.9) 06/24/2024 Hospital discharge follow-up (ICD-10 - Z09) [...] (ICD-10 - I10) Blood pressure at goal 12/31/2024 Chronic obstructive pulmonary disease, unspecified COPD type (ICD-10 - J44.9) Restart breo. Continue albuterol prn 12/31/2024 Dupuytren's contracture of both hands (ICD-10 - M72.0) Well controlled on meloxicam 01/15/2025 ADELINE (generalized anxiety disorder) (ICD-10 - F41.1) 12/31/2024 ADELINE (generalized anxiety disorder) (ICD-10 - F41.1) Continue propranolol and buspar. At baseline 12/31/2024 Mixed hyperlipidemia (ICD-10 - E78.2) LDL with good control. No changes 12/31/2024 Arthritis, multiple joint involvement (ICD-10 - M12.9) At baseline on current regimen. CSA updated. quoc report reviewed and is appropriate - discussed ongoing use of controlled medication and safety associated with these medications Plan Of Treatment Pending Test Test Name Order Date Ankle/Brachial Index--Segmental BPs 10/14 H-PSA SCREEN 06/19/2016 C-CMP 06/14/2016 C-CMP 11/10/2017 C-LIPID PANEL 06/14/2016 C-LIPID PANEL 11/10/2017 C-TSH 06/14/2016 C-HGBA1C 05/29/2020 VENIPUNCT, ROUTINE* 06/21/2016 M-Comprehensive Metabolic Panel 10/18/19 22 M-Comprehensive Metabolic Panel 01/01/20 25 M-Comprehensive Metabolic Panel 10/21/19 23 M-Comprehensive Metabolic Panel 02/22/20 23 M-Hemoglobin A1C 05/31/2022 M-Hemoglobin A1C 10/18/2021 M-Lipid Panel 10/18/2021 M-Lipid Panel 05/31/2022 M-Lipid Panel 12/31/2024 M-Lipid Panel 02/21/2023 M-Lipid Panel 10/21/2022 M-PSA Total+% Free 05/31/2022 Next Appt Details Provider Name:Darian Meyer Myesha, 04/07/2025 11:15:00 AM, [address], [address], Insurance Providers Payer Name Payer Address Payer Phone Subscriber Number Group Number Insured Name Patient Relationship to Insured Coverage Start Date Coverage End Date [place]IC[place] [address] [id number] Glenn Marti Self - patient is the insured MEDICAID EDS [address] [place] [address] [phone] [id number] Glenn Marti Self - patient is the insured [employer] [address] [place] [address] [phone] [id number] Glenn Marti Self - patient is [...] Surgery Date(Month/Year) Hospitalization History Reason Date(Month/Year) Cancer- [facility] kidney stone
--- OUTSIDE RECORDS SUMMARY | 2025-04-05 09:21 | XMS_ITS | Clinical Summary ---
Author Organization [facility] Address [address] [place] [address] Care Team Providers Care Casting Machine Control Board Operator Name Role Phone Darian Brunner MD Primary Care Provider + [phone] Allergies No known active allergies Medications acyclovir [...] Date Celestino rded Speak language other than Greek at home Not on file 12/25/2023 Want [...] Completed 10/24/2023, Medical Devices Implanted Type Area Food Service Assistant Device Identifier Shelf Expiration Date Model / Serial / Lot Iol Uv Clareon +21.0 [id number] - [id number] Implanted:Qty: 1 on 11/18/2024 by Julianna Mendez MD at [facility] IMPLANTS Right: Eye ANDR[employer]S 08/12/2027 [id number] / [id number] / Iol Uv Clareon +20.5 [id number] - [id number] Implanted:Qty: 1 on 12/16/2024 by Julianna Mendez MD at [facility] IMPLANTS Left: Eye ANDRÉS 09/01/2027 [id number] / [id number] / Insurance MEDICARE PART [place] [id number] Care Teams Casting Machine Control Board Operator Relationship Specialty Start Date End Date Darian Brunner MD [address] [place] [address] PCP - General Adolescent Medicine 01/01/24
--- NOTE | 2025-04-05 09:25 | PC.NURSE ---
0925-collected labs via venipuncture stick in left ac with butterfly needle; pt to oncology appt
[2025-04-05 09:35] LABS: Basophils % 0.6 % (0.1-2.0); Eosinophils # 0.1 Kmm3 (0.0-0.4); Eosinophils % 3.7 % (0.1-12.0); Hematocrit 24.4 % (42.0-52.0); Immature Granulocytes # 0.01 10^3uL; Immature Granulocytes % 0.6 %; Lymphocytes # 0.7 K/mm3 (0.7-4.5); Lymphocytes % 42.1 % (10-50); Mean Corpuscular HGB Conc 32.8 g/dL (31.8-35.4); Mean Corpuscular Hemoglobin 36.2 pg (27.0-31.2); Mean Corpuscular Volume 110.4 fl (80-94); Monocytes # 0.2 K/mm3 (0.1-1.0); Monocytes % 10.4 % (1.7-9.3); Neutrophils # 0.7 K/mm3 (1.8-7.8); Neutrophils % 42.6 % (37.0-80.0); Nucleated Red Blood Cells # 0 10^3/uL; Nucleated Red Blood Cells % 0 %; Red Blood Count 2.21 M/mm3 (4.60-6.20); Red Cell Distribution Width-SD 77.5 fL
[2025-04-05 09:41] LABS: Platelet Count 20 K/mm3 (142-424); White Blood Count 1.6 K/mm3 (4.8-10.8)
[2025-04-05 09:42] LABS: MANUAL DIFFERENTIAL MANUAL DIFFERENTIAL (MANUAL DIFF)
[2025-04-05 09:43] LABS: Alanine Aminotransferase 15 U/L (12-78); Albumin Level 3.8 g/dl (3.5-5.0); Albumin/Globulin Ratio 1.2 (1.1-1.8); Alkaline Phosphatase 117 U/L (38-126); Anion Gap 6.7 mEq/L (5-15); Aspartate Amino Transferase 24 U/L (17-59); Bilirubin,Total 0.7 mg/dl (0.2-1.3); Blood Urea Nitrogen 21 mg/dl (9-20); Calcium 9.5 mg/dl (8.4-10.2); Carbon Dioxide 24 mmol/L (22.0-30.0); Chloride 109 mmol/L (98-107); Estimated Glomerular Filt Rate 58 ml/min (>60); GFR (African American) 71 ML/MIN (>60); Globulin 3.3 g/dL (1.3-3.2); Glucose 125 mg/dl (74-100); Potassium 3.7 mmoL/L (3.5-5.1); Sodium 136 mmol/L (136-145); Total Protein,Serum 7.1 g/dl (6.3-8.2)
[2025-04-05 10:46] LABS: Eosinophils % 4 % (0-3); Lymphocytes % 42 % (10-50); Monocytes % 10 % (2-9); Neutrophils % 44 % (42-76); Total Cells Counted 100
[2025-04-05 10:47] LABS: Platelet Estimate Marked Decrease
[2025-04-05 10:48] LABS: Anisocytosis 1+; Macrocytosis 2+
== END 2025-04-05 09:50 | disposition home or self-care (01) ==
LOC: INF 09:17
PROVIDERS: PCP Internal Medicine Adolescent Medicine; Visit Provider Internal Medicine Medical Oncology
DX: D46.9 Myelodysplastic syndrome, unspecified (principal)
CPT/HCPCS: 36415; 80053; 85007; 85025; 85027

== ENCOUNTER 2025-04-19 09:19 | Outpatient (CLI) | payer MEDICARE, MEDICAID, SELFPAY ==
--- OUTSIDE RECORDS SUMMARY | 2025-01-15 17:30 | XMS_ITS ---
Author Organization [facility] Address [address] [place] [address] Care Team Providers Care Nursing Executive Name Role Phone Darian Brunner Primary Care Provider Migration, Provider Unavailable Unavailable REASON FOR VISIT [facility] Encounter Medications Medication SIG [...] Active Encounters Encounter Location Date Provider Diagnosis [facility] P[facility] [address] [facility] [address] [place] [address] 01/15/2025 Provider Migration Essential hypertension I10 and [...] Glenn MARTI BDOB:[birth year] (80 yo M)Acc No.[id number]:01/15/2025 Patient: Glenn GILMORE Provider: Caroline White :1945 A ge:79 Y S ex:Male Date:01/15/2025 Address:[facility] [address], [place], [id number] Pcp:Darian Brunner Subjective: * Chief Complaints: * 1 . [facility] En[facility]. * Medical History: * [...] *Please review and pick correct strength-formulation [facility] options. If intended option is [...] Electronic signature of Prov ider Migration on 04/19/2025 at 09:22 AM EDT Sign off status: Pending * Provider: Caroline cedeño Migration Date: 0 01/15/2025 Generated for Claudette hess/Vinicio/Janineitting on: 0 04/19/2025 09:22 AM EDT
--- OUTSIDE RECORDS SUMMARY | 2025-04-08 07:45 | XMS_ITS ---
Author Organization [facility] D [place] Address [address] [place] [address] Care Team Providers Care Highway Safety Engineer Name Role Phone Darian Brunner Primary Care Provider [phone] Lisa Jones Unavailable [phone] REASON FOR VISIT med ck Encounters Encounter Location Date Provider Diagnosis [address] [address] 04/08/2025 Lisa Jones Plan Of Treatment No Information Progress Notes * Glenn MARTI BDOB:[birth year] (80 yo M)Acc No.[id number]:04/08/2025 Progress Notes Patient: Theresa PACKGlenn Provider: Theresa Jones APRN :1945 A ge:79 Y S ex:Male Date:04/08/2025 Address:[address] [id number] Pcp:Darian Brunner Subjective: * Chief Complaints: * 1 . Med ck. * Medical History: Objective: * Vitals: Assessment: Plan: * Treatment: * * Electronic signature of Leni Jones APRN on 04/19/2025 at 09:22 AM EDT Sign off status: Pending * Provider: Theresa Jones APRN Date: 0 04/08/2025 Generated for Printi ng/Faxing/eTransmitting on: 0 04/19/2025 09:22 AM EDT
--- OUTSIDE RECORDS SUMMARY | 2025-04-12 10:15 | XMS_ITS ---
Author Organization [facility] Address [address] [facility] [address] [place] [address] Care Team Providers Care Bracelet And Brooch Maker Name Role Phone Darian Brunner Primary Care Provider Allergies No Known Allergies REASON FOR VISIT rash - legs , arms , chest, sinus infection Medications Medication SIG (Take, Route, Frequency, Duration) Notes Start Date End Date Status busPIRone HCl 10 MG 1-1.5 tabs orally three times a day prn anxiety; Duration: 90 days Active Fluticasone Propionate 50 MCG/ACT 1 spray(s) in each nostril once a day; Duration: 90 days Active Tamsulosin HCl 0.4 MG 2 caps orally once a day at bedtime; Duration: 90 days Active Acyclovir 800 MG 1 tab(s) orally 3 times a day; Duration: 10 days Active Cyclobenzaprine HCl 10 MG 1 tab(s) orally every 8 hrs as needed for back spasm; Duration: 90 days 06/18/2019 Active Ventolin HFA 108 (90 Base) MCG/ACT 2 puff(s) inhaled 4 times a day PRN SOA; Duration: 90 days 05/11/2018 Active Breo Ellipta 100 MCG-25 MCG/INH 1 PUFF BY MOUTH ONCE DAILY DIRECTED; Duration: 90 DAYS *Please review and pick correct strength-formulati on from Medispan options. If intended option is not shown, discontinue and re-order from Quick Search* Active Selenium Sulfide 2.25 % 1 miguel a applied topically 2 times a week; Duration: 30 day(s) 08/20/2019 Active Propranolol HCl 10 MG 1 tab(s) orally 2 times a day; Duration: 30 days Active Amoxicillin 875 MG 1 tablet Orally Twice a day; Duration: 10 days 04/12/2025 Active Procrit 3000 UNIT/ML as directed Injection Active Atorvastatin Calcium 40 MG 1 tab(s) orally once a day; Duration: 90 days Active oxyCODONE-Acetaminophen 10-325 MG 1 tab(s) orally three times daily; Duration: 30 days 04/05/2025 Active ICaps AREDS Formula - as directed orally; Duration: 30 day(s) Active Meloxicam 15 MG 1 tab(s) orally once a day; Duration: 90 days Active Omeprazole Magnesium 20 MG 1 cap(s) orally once a day; Duration: 90 days Active Escitalopram Oxalate 20 MG 1 tab(s) orally once a day; Duration: 90 days Active Levocetirizine Dihydrochloride 5 MG 1 tab(s) orally once a day (in the evening); Duration: 90 days Active amLODIPine Besylate 5 MG 1 tab(s) orally once a day; Duration: 90 days Active Social History Tobacco Use: Social History Observation Description Date Details (start date - stop date) Former Smoker NA - NA Smoking: Question Answer Notes Are you a: former smoker 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 Vital Signs Temperature 98 degrees Fahrenheit 04/12/2025 Heart Rate 70 /min 04/12/2025 Blood pressure systolic 146 mm Hg 04/12/20 25 Blood pressure diastolic 72 mm Hg 025 Height 5 ft 8 in in 04/12/2025 Weight 230 lbs 04/12/2025 BMI 34.97 kg/m2 04/12/2025 Encounters Encounter Location Date Provider Diagnosis [address] [address] 04/12/2025 Darian Brunner Acute non-recurrent maxillary sinusitis J01.00 ; Mixed hyperlipidemia E78.2 ; Essential (primary) hypertension I10 and MDS (myelodysplastic syndrome) D46.9 Assessments Encounter Date Diagnosis (ICD Code) Assessment Notes Treatment Notes Treatment Clinical Notes Section Notes 04/12/2025 Acute non-recurrent maxillary sinusitis (ICD-10 - J01.00) - One week history of nasal congestion, sinus pressure - Tender to palpation of maxillary sinus R>L - Denies fever, chills, cough or worsening SOB - Complains of copius purulent discharge - Rx for amoxicillan - Symptomatic management with OTC saline sasal irrigation 04/12/2025 Mixed hyperlipidemia (ICD-10 - E78.2) - LDL at goal - Continue atorvastatin 04/12/2025 Essential (primary) hypertension (ICD-10 - I10) - Well controlled - Continue amlodipine 04/12/2025 MDS (myelodysplastic syndrome) (ICD-10 - D46.9) - Last chemo Oct 2024, follows with Dr. Whitt - Recently started Procrit 2 months prior - Has had purpuric rash for a few weeks, it is not itchy or irritating - May be side effect of Procrit or in setting of acute illness - Counseling on RTC if worsening SOB or hematuria occurs Plan Of Treatment Medication Medication Name Sig Start Date Stop Date Notes Amoxicillin 875 MG 1 tablet Orally Twic e a day; Duration: 10 days 04/12/2025 Treatment Notes Assessment Notes Acute non-recurrent maxillary sinusitis - One week history of nasal congestion, sinus pressure - Tender to palpation of maxillary sinus R>L - Denies fever, chills, cough or worsening SOB - Complains of copius purulent discharge - Rx for amoxicillan - Symptomatic management with OTC saline sasal irrigation Mixed hyperlipidemia - LDL at goal - Continue atorvastatin Essential (primary) hypertension - Well controlled - Continue amlodipine MDS (myelodysplastic syndrome) - Last chemo Oct 2024, follows with Dr. Whitt - Recently started Procrit 2 months prior - Has had purpuric rash for a few weeks, it is not itchy or irritating - May be side effect of Procrit or in setting of acute illness - Counseling on RTC if worsening SOB or hematuria occurs Next Appt Details Follow Up: prn, Reason: Medications Administered Medication Instructions Date of Administration Dosage Notes Dexamethasone 4mg Injection 04/12/2025 4 mg Progress Notes * Glenn MARTI BDOB:[birth year] (79 yo M)Acc No.[id number]:04/12/2025 Progress Notes Patient: Glenn GILMORE Lucie Provider: Rossy Brunner MD :1945 A ge:79 Y S ex:Male Date:04/12/2025 Address:[address] [place] [address] [address] [place], [id number] Subjective: * Chief Complaints: * 1 . Rash - legs , arms , chest. 2. Sinus infection. * HPI: g en: Patient is a 79 YO M who presents for routine follow up of chronic medical conditions. Today he complains of sinus congestion that has been going on for about one week. He is also have purulent discharge. He has tenderness to palpation on paranasal sinuses R>L. He denies fevers or chills. He has shortness of breath with exertion that is chronic. Has difficulty walking to mailbox without getting SOB. He has a purpuric rash on R arm, chest and lower extremities. Denies hematuria, it is not itchy or painful. He has been on Procrit for last two month to help with blood counts. Last chemo for MDS was Oct 2024. Follows with Dr. Whitt. Has chronic back pain that is getting worse. Takes oxycodone PRN and lately has been taking it three times per day. * Medical History: B PH, Renal stones, Former smoker, ETOh abuse, Dupytren's contracture bilat palms, Seborrheic dermatitis, HTN, HLD, Anxiety, Spermatocele, bilat. * Surgical History: D enies Past Surgical History. * Hospitalization/Major Diagno stic Procedure: jared ruiz , Cancer- [facility] . * Family History: F ather: . M other: . P aternal Grand Father: . P aternal Grand Mother: . M aternal Grand Father: . M aternal Grand Mother: .?Paternal uncle: . 1 son(s) . . * Social History: S moking A re you a: f ormer smoker. R ecreational drug use: no. Exercise: no. Home smoke detector use: yes. Caffeine: yes, frequency: coffee daily. Alcohol: smirnoff daily. Travel outside [place]: no. 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 * Medications: T aking Procrit 3000 UNIT/ML Solution as directed Injection , Taking ICaps AREDS Formula - Tablet as directed orally , Taking Selenium Sulfide 2.25 % Shampoo 1 miguel a applied topically 2 times a week , Taking Propranolol HCl 10 MG Tablet 1 tab(s) orally 2 times a day , Taking Ventolin HFA 108 (90 Base) MCG/ACT Aerosol Solution 2 puff(s) inhaled 4 times a day PRN SOA , Taking Breo Ellipta 100 MCG-25 MCG/INH POWDER 1 PUFF BY MOUTH ONCE DAILY DIRECTED , Notes to Pharmacist: *Please review and pick correct strength-formulation from Clarivoyspan options. If intended option is not shown, discontinue and re-order from Quick Search*, Taking Cyclobenzaprine HCl 10 MG Tablet 1 tab(s) orally every 8 hrs as needed for back spasm , Taking Tamsulosin HCl 0.4 MG Capsule 2 caps orally once a day at bedtime , Taking Acyclovir 800 MG Tablet 1 tab(s) orally 3 times a day , Taking busPIRone HCl 10 MG Tablet 1-1.5 tabs orally three times a day prn anxiety , Taking Fluticasone Propionate 50 MCG/ACT Suspension 1 spray(s) in each nostril once a day , Taking Levocetirizine Dihydrochloride 5 MG Tablet 1 tab(s) orally once a day (in the evening) , Taking amLODIPine Besylate 5 MG Tablet 1 tab(s) orally once a day , Taking Omeprazole Magnesium 20 MG Tablet Delayed Release 1 cap(s) orally once a day , Taking Escitalopram Oxalate 20 MG Tablet 1 tab(s) orally once a day , Taking Meloxicam 15 MG Tablet 1 tab(s) orally once a day , Taking Atorvastatin Calcium 40 MG Tablet 1 tab(s) orally once a day , Taking oxyCODONE-Acetaminophen 10-325 MG Tablet 1 tab(s) orally three times daily , Discontinued CHEMOTHERAPY , Notes to Pharmacist: *Please review for potential replacement for e-prescription and drug interaction check*, Medication List reviewed and reconciled with the patient * Allergies: N .K.D.A. Objective: * Vitals: N urse: dw, Pain: 8, Temp: 98, RR: 20, HR: 70, BP: 146/72, Ht: 5 ft 8 in, Wt: 230, BMI:34.97. * Examination: G eneral Examination: General a ppear uncomfortable, NAD. Heart: r egular rate and rhythm. Lungs: c lear to auscultation, n o wheezes or crackles,. Skin: m ultiple purpuric lesions on R upper extremity, chest and lower extremities. Assessment: * Assessment: 1. A cute non-recurrent maxillary sinusitis - J01.00 (Primary) 2 . M ixed hyperlipidemia - E78.2 3 . E ssential (primary) hypertension - I10 ?4. M DS (myelodysplastic syndrome) - D46.9 Plan: * Treatment: 2. M ixed hyperlipidemia Notes: - LDL at goal - Continue atorvastatin 3. E ssential (primary) hypertension Notes: - Well controlled - Continue amlodipine 4. M DS (myelodysplastic syndrome) Notes: - Last chemo Oct 2024, follows with Dr. Whitt - Recently started Procrit 2 months prior - Has had purpuric rash for a few weeks, it is not itchy or irritating - May be side effect of Procrit or in setting of acute illness - Counseling on RTC if worsening SOB or hematuria occurs * Therapeutic Injections: Dexamethasone 4mg Injection : 4 mg (Route: Intramuscular) given by ED Bass on right deltoid * Procedure Codes: J 1100 Dexamethasone Sodium Phosphate 4mg Injection, 42768 THERAPEUTIC ADMINISTRATION * Follow Up: p rn * * Sign off status: Completed true * Provider: Rossy Brunner MD Date: 04/12/2025 Generated for Claudette hess/Vinicio/Janineitting on: 04/19/2025 09:22 AM EDT History and Physical Notes * HPI (History of Present Illness) Category Sub-Category Detail Notes Category Not es gen Patient is a 79 YO M who presents for routine follow up of chronic medical conditions. Today he complains of sinus congestion that has been going on for about one week. He is also have purulent discharge. He has tenderness to palpation on paranasal sinuses R>L. He denies fevers or chills. He has shortness of breath with exertion that is chronic. Has difficulty walking to mailbox without getting SOB. He has a purpuric rash on R arm, chest and lower extremities. Denies hematuria, it is not itchy or painful. He has been on Procrit for last two month to help with blood counts. Last chemo for MDS was Oct 2024. Follows with Dr. Whitt. Has chronic back pain that is getting worse. Takes oxycodone PRN and lately has been taking it three times per day. Examination Category Sub-Category Detail Notes Category Not es General Examination Heart: regular rate and rhyt hm Lungs: clear to auscultatio n, no wheezes or crackles, Skin: multiple purpuric le sions on R upper extremity, chest and lower extremities General appear uncomfortable , NAD
[2025-04-19] VITALS (10 sets, daily range): BP systolic 112–141; BP diastolic 46–68; PULSE 71–90; RESP 18; TEMP 36.4–36.6; O2SAT 97–98
--- OUTSIDE RECORDS SUMMARY | 2025-04-19 09:22 | XMS_ITS | Patient Health Record ---
Author Organization [facility] Address [address] [facility] [address] [place] [address] Care Team Providers Care Machine Grinder Name Role Phone Darian Brunner Primary Care Provider [phone] Gemzainab Lisa Unavailable [phone] Migration, Provider Unavailable Unavailable Allergies No Known Allergies Reason For Referral No Information Medications Medication SIG (Take, Route, Frequency, Duration) Notes Start Date End Date Status Ventolin HFA 108 (90 Base) MCG/ACT 2 puff(s) inhaled 4 times a day PRN SOA; Duration: 90 days 05/11/2018 Active Meloxicam 15 MG 1 tab(s) orally once a day; Duration: 90 days Active Breo Ellipta 100 MCG-25 MCG/INH 1 PUFF BY MOUTH ONCE DAILY DIRECTED; Duration: 90 DAYS *Please review and pick correct strength-formulati on from [employer] options. If intended option is not shown, discontinue and re-order from Quick Search* Active Selenium Sulfide 2.25 % 1 miguel a applied topically 2 times a week; Duration: 30 day(s) 08/20/2019 Active Omeprazole Magnesium 20 MG 1 cap(s) orally once a day; Duration: 90 days Active Propranolol HCl 10 MG 1 tab(s) orally 2 times a day; Duration: 30 days Active Escitalopram Oxalate 20 MG 1 tab(s) orally once a day; Duration: 90 days Active Levocetirizine Dihydrochloride 5 MG 1 tab(s) orally once a day (in the evening); Duration: 90 days Active Amoxicillin 875 MG 1 tablet Orally Twice a day; Duration: 10 days 04/12/2025 Active ICaps AREDS Formula - as directed orally; Duration: 30 day(s) Active amLODIPine Besylate 5 MG 1 tab(s) orally once a day; Duration: 90 days Active busPIRone HCl 10 MG 1-1.5 tabs orally three times a day prn anxiety; Duration: 90 days Active Tamsulosin HCl 0.4 MG 2 caps orally once a day at bedtime; Duration: 90 days Active Procrit 3000 UNIT/ML as directed Injection Active Fluticasone Propionate 50 MCG/ACT 1 spray(s) in each nostril once a day; Duration: 90 days Active Acyclovir 800 MG 1 tab(s) orally 3 times a day; Duration: 10 days Active Atorvastatin Calcium 40 MG 1 tab(s) orally once a day; Duration: 90 days Active Cyclobenzaprine HCl 10 MG 1 tab(s) orally every 8 hrs as needed for back spasm; Duration: 90 days 06/18/2019 Active oxyCODONE-Acetaminophen 10-325 MG 1 tab(s) orally three times daily; Duration: 30 days 04/05/2025 Active Immunizations Vaccine Route Administration Date Status [...] Problem Status W/U Status Risk Notes Problem Mixed hyperlipidemia (983226967) Mixed hyperlipidemia (E78.2) Active confirmed Problem Chronic pain (90292687) Other chronic pain (G89.29) Active confirmed Problem Essential hypertension (47871597) Essential (primary) hypertension (I10) Active confirmed Problem Paroxysmal atrial fibrillation (698645828) Paroxysmal atrial fibrillation (I48.0) Active confirmed Problem Simple chronic bronchitis (60699288) Simple chronic bronchitis (J41.0) Active confirmed Problem Essential hypertension (55404040) Essential hypertension (I10) Active confirmed Problem Seasonal allergy (389784011) Seasonal allergies (J30.2) Active confirmed Problem Acute exacerbation of chronic obstructive airways disease (728762110) COPD exacerbation (J44.1) Active confirmed Problem Body mass index 30+ - obesity (897685546) BMI 30.0-30.9,adult (Z68.30) Active confirmed Problem 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, 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) Active confirmed Problem COPD - Chronic obstructive pulmonary disease (50042431) Chronic obstructive pulmonary disease, unspecified COPD type (J44.9) Active confirmed Problem Obesity (959289436) Non morbid obesity due to excess calories (E66.09) Active confirmed Problem Obese class II (191295132664116) BMI 37.0-37.9, adult (Z68.37) Active confirmed Problem Obese class II (672671509567996) BMI 36.0-36.9,adult (Z68.36) Active confirmed Problem Essential tremor (377362182) Benign essential tremor (G25.0) Active confirmed Problem Urinary hesitancy (8728020) Urinary hesitancy (R39.11) Active confirmed Problem Generalized anxiety disorder (02617738) ADELINE (generalized anxiety disorder) (F41.1) Active confirmed Problem Lower urinary tract symptoms due to benign prostatic hypertrophy (40623182704012) Benign prostatic hyperplasia with lower urinary tract symptoms, unspecified morphology (N40.1) Active confirmed Problem Contracture of palmar fascia (400714626) Dupuytren's contracture of both hands (M72.0) Active confirmed Problem Pain due to neoplastic disease (78799245473144) 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) Active confirmed Problem Myelodysplastic syndrome (768233123) MDS (myelodysplastic syndrome) (D46.9) Active confirmed Vital Signs Heart Rate 70 /min 04/12/2025 Temperature 98 degrees Fahrenheit 04/12/2025 Blood pressure diastolic 72 mm Hg 04/12/2025 Height 5 ft 8 in in 04/12/2025 Blood pressure systolic 146 mm Hg 04/12/2025 Weight 230 lbs 04/12/2025 BMI 34.97 kg/m2 04/12/2025 Encounters Encounter Location Date Provider Diagnosis [facility] [address] [place] [address] 01/15/2025 Provider Migration Essential hypertension I10 and ADELINE (generalized anxiety disorder) F41.[address] [address] 06/24/2024 Darian Besson Cancer related pain G89.3 ; Chronic constipation K59.09 ; Essential hypertension I10 and Hospital discharge follow-up Z09 [address] [address] 07/13/2024 Darian Besson Cancer related pain G89.3 ; Essential hypertension I10 ; Immunization(s) administered Z23 and Encounter for immunization Z23 [address] [address] 12/31/2024 Lisa Robert Paroxysmal atrial fibrillation I48.0 [...] E78.2 and Arthritis, multiple joint involvement M12.9 [facility] [address] [address] 04/12/2025 Darian Besson Acute non-recurrent maxillary sinusitis J01.00 ; Mixed hyperlipidemia E78.2 ; Essential (primary) hypertension I10 and MDS (myelodysplastic syndrome) D46.9 [facility] [address] [address] 05/03/2024 Darian Besson Skin lesion L98.9 an d Arthritis, multiple joint involvement M12.9 [facility] [address] [place] [address] 05/25/2024 Darian Besson [facility] [address] [address] 05/25/2024 Lisa Jones [facility] [address] [place] [address] 06/18/2024 Darian Besson [facility] [address] [address] 07/19/2024 Darian Besson [facility] [address] [address] 08/02/2024 Darian Besson Cancer related pain G89.3 [facility] [address] [address] 08/09/2024 Darian Besson [facility] [address] [address] 09/02/2024 Darian Besson Cancer related pain G89.3 [facility] [address] [address] 10/04/2024 Darian Besson Cancer related pain G89.3 [facility] [address] [address] 10/11/2024 Darian Besson Seasonal allergies J30.2 [facility] [address] [address] 12/17/2024 Darian Besson ADELINE (generalized anxiety disorder) F41.1 [facility] [address] [place] [address] 12/31/2024 Lisa Robert Essential hypertensi on I10 [facility] [address] [place] [address] 12/31/2024 Darian Besson [facility] [address] [address] 01/25/2025 Darian Besson Cancer related pain G89.3 [facility] [address] [place] [address] 02/25/2025 Darian Besson [facility] [address] [place] [address] 03/02/2025 Darian Besson Cancer related pain G89.3 [facility] [address] [address] 04/04/2025 Darian Besson Cancer related pain G89.3 [facility] [address] [address] 04/05/2025 Darian Besson Cancer related pain G89.3 [facility] [address] [address] 04/13/2025 Darian Besson Assessments Encounter Date Diagnosis (ICD Code) Assessment [...] 04/04/2025 Cancer related pain (ICD-10 - G89.3) 04/05/2025 Cancer related pain (ICD-10 - G89.3) 04/12/2025 Mixed hyperlipidemia (ICD-10 - E78.2) - LDL at goal - Continue atorvastatin 04/12/2025 Acute non-recurrent maxillary sinusitis (ICD-10 - J01.00) - One week history of nasal congestion, sinus pressure - Tender to palpation of maxillary sinus R>L - Denies fever, chills, cough or worsening SOB - Complains of copius purulent discharge - Rx for amoxicillan - Symptomatic management with OTC saline sasal irrigation 04/12/2025 Essential (primary) hypertension (ICD-10 - I10) - Well controlled - Continue amlodipine 12/31/2024 Tremor (ICD-10 - R25.1) At baseline [...] will give prevnar 20 at next visit 04/12/2025 MDS (myelodysplastic syndrome) (ICD-10 - D46.9) - Last chemo Oct 2024, follows with Dr. Whitt - Recently started Procrit 2 months prior - Has had purpuric rash for a few weeks, it is not itchy or irritating - May be side effect of Procrit or in setting of acute illness - Counseling on RTC if worsening SOB or hematuria occurs 12/31/2024 Benign prostatic hyperplasia with lower urinary [...] Metabolic Panel 10/18/19 22 M-Comprehensive Metabolic Panel 10/21/19 23 M-Comprehensive Metabolic Panel 01/01/20 25 M-Comprehensive Metabolic Panel 02/22/20 23 M-Hemoglobin A1C 10/18/2021 M-Hemoglobin A1C 05/31/2022 M-Lipid Panel 05/31/2022 M-Lipid Panel 10/21/2022 M-Lipid Panel 02/21/2023 M-Lipid Panel 10/18/2021 M-Lipid Panel 12/31/2024 M-PSA Total+% Free 05/31/2022 Insurance Providers Payer Name Payer Address Payer Phone Subscriber Number Group Number Insured Name Patient Relationship to Insured Coverage Start Date Coverage End Date [place] [address] [place] [place] [address] [phone] [id number] Glenn Marti Self - patient is the insured MEDICAID EDS [address] [place] [address] [phone] [id number] Glenn Marti Self - patient is the insured Book[employer]Table [address] [place] [address] ACL Glenn Marti Self - patient is the insured Medications Administered Medication Instructions Date of Administration Dosage Notes Ceftriaxone 500 10/03/2020 500 mg Dexamethasone 4mg Injection 04/12/2025 4 mg Kenalog 05/16/2016 1 mL Triamcinolone Acetonide 40mg Injection 08/25/2020 1 mL Medical (General) History Medical History History ICD Code BPH Renal stones Former smoker ETOh abuse Dupytren's contracture bilat palms Seborrheic dermatitis HTN HLD Anxiety Spermatocele, bilat Surgical History Surgery Date(Month/Year) Hospitalization History Reason Date(Month/Year) Cancer- [facility] kidney stone
--- OUTSIDE RECORDS SUMMARY | 2025-04-19 09:22 | XMS_ITS | Referral Summary ---
Author Organization [employer] ([place], [place], [place], [place]) Address [address] [place] [address] Care Team Providers Care Environmental Department Manager Name Role Phone Darian Brunner MD Primary Care Provider + [phone] Allergies No known active allergies Medications acyclovir [...] = 0.6 oz pur e alcohol) OCCASIONALLY Family and Community Support Answer Crispin e Recorded Help with Day to Day Activities Not on file 12/25/2023 Feeling Lonely or Isolated Not on file 12/24 Educational Attainment Answer Date Celestino rded Speak language other than Sinhala at home Not on file 12/25/2023 Want help with school or training Not on file 12/25/2023 Substance Use Answer Date Recorded Used [...] on file Medical Devices Implanted Type Area Customer Support Advisor Device Identifier Shelf Expiration Date Model / Serial / Lot Iol Uv Jared +21.0 [id number] - [id number] Implanted:Qty: 1 on 11/18/2024 by Julianna Mendez MD at [facility] IMPLANTS Right: Eye ANDRÉS 08/12/2027 [id number] / [id number] / Iol Uv Clareon +20.5 [id number] - [id number] Implanted:Qty: 1 on 12/16/2024 by Julianna Mendez MD at [facility] IMPLANTS Left: Eye ANDRÉS 09/01/2027 [id number] / [id number] / Insurance MEDICARE PART A B MEDICAID QMB Care Teams Environmental Department Manager Relationship Specialty Start Date End Date Darian Brunner MD [address] [place] [address] PCP - General Adolescent Medicine 01/01/24
--- OUTSIDE RECORDS SUMMARY | 2025-04-19 09:23 | XMS_ITS | Clinical Summary ---
Author Organization [email or web address] ([place], [place], [place], [place]) Address [address] [place] [address] Care Team Providers Care Facility Administrator Name Role Phone Darian Brunner MD Primary Care Provider + [phone] Allergies No known active allergies Medications acyclovir [...] Date Celestino rded Speak language other than Mongolian at home Not on file 12/25/2023 Want [...] Last Done Comments Depression Screening (12+) 1957 Medicare Initial AWV [id number] 04/13/2011 Respiratory Syncytial Virus (RSV) Adult or (1 - 1-dose 75+ series) 2020 COVID-19 VACCINE (2023-2 5 season) 2024 08/07/2023, 09/03/2022, 05/03/2022, Additional history exists Falls Risk Screening 10/13/2024 Influenza Vaccine (#1) 2025 07/21/2023, 2020 Tobacco Cessation Counseling and Screening (12+) 12/16/2025 12/16/2024 DTAP/TDAP/TD VACCINES (3 - T d or Tdap) 05/31/2031 05/31/2021, 05/11/2004 Pneumococcal 50+ years Completed 9, 11/10/2017, 08/18/2008 Shingles Vaccine (Zoster) Completed 10/24/2023, Medical Devices Implanted Type Area Treatment Manager Device Identifier Shelf Expiration Date Model / Serial / Lot Iol Uv Clareon +21.0 [id number] - [id number] Implanted:Qty: 1 on 11/18/2024 by Julianna Mendez MD at [facility] IMPLANTS Right: Eye ANDRÉS 08/12/2027 [id number] / [id number] / Iol Uv Clareon +20.5 [id number] - [id number] Implanted:Qty: 1 on 12/16/2024 by Julianna Mendez MD at [facility] IMPLANTS Left: Eye ANDRÉS 09/01/2027 [id number] / [id number] / Insurance MEDICARE PART A B MEDICAID B Care Teams Facility Administrator Relationship Specialty Start Date End Date Darian Brunner MD [address] [place] [address] PCP - General Adolescent Medicine 01/01/24
--- NOTE | 2025-04-19 09:24 | PC.NURSE ---
0924-colleted labs via venipuncture stick in left ac with butterfly needle;will wait on results
[2025-04-19 09:32] LABS: Hematocrit 22.2 % (42.0-52.0); Hemoglobin 7.2 g/dL (14.1-18.0); Immature Granulocytes % 0 %; Mean Corpuscular HGB Conc 32.4 g/dL (31.8-35.4); Mean Corpuscular Hemoglobin 36.7 pg (27.0-31.2); Mean Corpuscular Volume 113.3 fl (80-94); Nucleated Red Blood Cells % 0 %; Red Blood Count 1.96 M/mm3 (4.60-6.20); Red Cell Distribution Width-SD 80.2 fL
[2025-04-19 09:44] LABS: White Blood Count 1.2 K/mm3 (4.8-10.8)
[2025-04-19 09:45] LABS: Platelet Count 24 K/mm3 (142-424)
[2025-04-19 10:15] LABS: Total Cells Counted 100
[2025-04-19 10:16] LABS: Anisocytosis 1+; Tear Drop Cells 1+
[2025-04-19 10:17] LABS: Macrocytosis 2+
[2025-04-19] MEDS: 0.9 % SODIUM CHLORIDE 250 ML 25 ML IV (11:48)
--- NOTE | 2025-04-19 12:10 | PC.NURSE ---
1210-started 1 unit prbc per md order for symptomatic anemia hgb 7.2
== END 2025-04-19 15:00 | disposition home or self-care (01) ==
LOC: INF 09:20
PROVIDERS: PCP Nurse Practitioner Family; Visit Provider Internal Medicine Medical Oncology
DX: D46.9 Myelodysplastic syndrome, unspecified (principal)
CPT/HCPCS: 36430; 85007; 85025; 85027; 86850; J7050; P9016

== ENCOUNTER 2025-05-03 09:14 | Outpatient (CLI) | payer MEDICARE, MEDICAID, SELFPAY ==
--- OUTSIDE RECORDS SUMMARY | 2025-01-15 17:30 | XMS_ITS ---
Author Organization [facility] Address [address] [place] [address] Care Team Providers Care Mottle Lay Up Operator Name Role Phone Darian Brunner Primary Care Provider [phone] Migration, Provider Unavailable Unavailable REASON FOR VISIT [facility] Encounter Medications Medication SIG [...] Active Encounters Encounter Location Date Provider Diagnosis [facility] [place] [address] [facility] [address] [place] [address] 01/15/2025 Provider Migration Essential hypertension I10 and [...] Glenn MARTI BDOB:[birth year] (80 yo M)Acc No.[id number]:01/15/2025 Patient: Glenn GILMORE Provider: Caroline White :1945 A ge:79 Y S ex:Male Date:01/15/2025 Address:[facility] [address], [place], [id number] Pcp:Darian Brunner Subjective: * Chief Complaints: * 1 . [facility] En[facility]. * Medical History: * [...] *Please review and pick correct [facility]-formulation [facility]. If intended option is [...] Electronic signature of Prov ider Migration on 05/03/2025 at 09:20 AM EDT Sign off status: Pending * Provider: Caroline cedeño Migration Date: 0 01/15/2025 Generated for Claudette hess/Vinicio/Janineitting on: 0 05/03/2025 09:20 AM EDT
--- OUTSIDE RECORDS SUMMARY | 2025-04-08 07:45 | XMS_ITS ---
Author Organization [facility] D [place] Address [address] [place] [address] Care Team Providers Care Transportation Project Manager Name Role Phone Darian Brunner Primary Care Provider Lisa Jones Unavailable [phone] REASON FOR VISIT med ck Encounters Encounter Location Date Provider Diagnosis [address] [address] 04/08/2025 Lisa Jones Plan Of Treatment No Information Progress Notes * Glenn MARTI BDOB:[birth year] (80 yo M)Acc No.[id number]:04/08/2025 Progress Notes Patient: Theresa PACKGlenn Provider: Theresa Jones APRN :1945 A ge:79 Y S ex:Male Date:04/08/2025 Address:[address] [id number] Pcp:Darian Brunner Subjective: * Chief Complaints: * 1 . Med ck. * Medical History: Objective: * Vitals: Assessment: Plan: * Treatment: * * Electronic signature of Leni Jones APRN on 05/03/2025 at 09:20 AM EDT Sign off status: Pending * Provider: Theresa Jones APRN Date: 0 04/08/2025 Generated for Printi ng/Faxing/eTransmitting on: 05/03/2025 09:20 AM EDT
--- OUTSIDE RECORDS SUMMARY | 2025-04-12 10:15 | XMS_ITS ---
Author Organization [facility] Address [address] [facility] [address] [place] [address] Care Team Providers Care Desk Officer Name Role Phone Darian Brunner Primary Care [...] 04/12/2025 Encounters Encounter Location Date Provider Diagnosis [address] [address] 04/12/2025 Darian Brunner Acute non-recurrent maxillary sinusitis [...] Glenn MARTI BDOB:[birth year] (79 yo M)Acc No.[id number]:04/12/2025 Progress Notes Patient: Glenn GILMORE Lucie Provider: Rossy Brunner MD :1945 A ge:79 Y S ex:Male Date:04/12/2025 Address:[address] [place] [address] [address] [place], [id number] Subjective: * Chief Complaints: * 1 . [...] Diagno stic Procedure: jared ruiz , Cancer- [facility] . * Family History: F ather: [...] *Please review and pick correct strength-formulation from BackTrackspan options. If intended option is not shown, [...] J 1100 Dexamethasone Sodium Phosphate 4mg Injection, 74540 THERAPEUTIC ADMINISTRATION * Follow Up: p rn * * Sign off status: Completed true * Provider: Rossy Brunner MD Date: 04/12/2025 Generated for Claudette hess/Vinicio/Janineitting on: 05/03/2025 09:19 AM EDT History and Physical Notes * [...]
--- OUTSIDE RECORDS SUMMARY | 2025-05-03 09:20 | XMS_ITS | Referral Summary ---
Author Organization [employer] ([place], [place], [place], [place]) Address [address] [place] [address] Care Team Providers Care Service Parts Coordinator Name Role Phone Darian Brunner MD Primary Care Provider + [phone] Allergies No known active allergies Medications acyclovir [...] Date Celestino rded Speak language other than Spanish at home Not on file 12/25/2023 Want [...] on file Medical Devices Implanted Type Area Implementation Specialist Device Identifier Shelf Expiration Date Model / Serial / Lot Iol Uv Jared +21.0 [id number] - [id number] Implanted:Qty: 1 on 11/18/2024 by Julianna Mendez MD at [facility] IMPLANTS Right: Eye ANDRÉS 08/12/2027 [id number] / [id number] / Iol Uv Clareon +20.5 [id number] - [id number] Implanted:Qty: 1 on 12/16/2024 by Julianna Mendez MD at [facility] IMPLANTS Left: Eye ANDRÉS 09/01/2027 [id number] / [id number] / Insurance MEDICARE PART A B MEDICAID QMB Care Teams Service Parts Coordinator Relationship Specialty Start Date End Date Darian Brunner MD [address] [place] [address] PCP - General Adolescent Medicine 01/01/24
--- OUTSIDE RECORDS SUMMARY | 2025-05-03 09:20 | XMS_ITS | Clinical Summary ---
Author Organization [employer] ([place], [place], [place], [place]) Address [address] [place] [address] Care Team Providers Care Bondactor Machine Operator Name Role Phone Darian Brunner MD Primary Care Provider + [phone] Allergies No known active allergies Medications acyclovir [...] Date Celestino rded Speak language other than Turkmen at home Not on file 12/25/2023 Want [...] Completed 10/24/2023, Medical Devices Implanted Type Area Education And Development Manager Device Identifier Shelf Expiration Date Model / Serial / Lot Iol Uv Clareon +21.0 [id number] - [id number] Implanted:Qty: 1 on 11/18/2024 by Julainna Mendez MD at [facility] IMPLANTS Right: Eye ANDRÉS 08/12/2027 [id number] / [id number] / Iol Uv Clareon +20.5 [id number] - [id number] Implanted:Qty: 1 on 12/16/2024 by Julianna Mendez MD at [facility] IMPLANTS Left: Eye ANDRÉS 09/01/2027 [id number] / [id number] / Insurance MEDICARE PART A B MEDICAID B Care Teams Bondactor Machine Operator Relationship Specialty Start Date End Date Darian Brunner MD [address] [place] [address] PCP - General Adolescent Medicine 01/01/24
--- OUTSIDE RECORDS SUMMARY | 2025-05-03 09:20 | XMS_ITS | Patient Health Record ---
Author Organization [facility] Address [address] [facility] [address] [place] [address] Care Team Providers Care Passenger Service Manager Name Role Phone Darian Brunner Primary Care Provider Gemzainab Lisa Unavailable [phone] Migration, Provider Unavailable Unavailable Allergies No Known Allergies Reason For Referral No Information Medications Medication SIG (Take, Route, Frequency, Duration) Notes Start Date End Date Status Meloxicam 15 MG 1 tab(s) orally once a day; Duration: 90 days Active Breo Ellipta 100 MCG-25 MCG/INH 1 PUFF BY MOUTH ONCE DAILY DIRECTED; Duration: 90 DAYS *Please review and pick correct strength-formulati on from TUBE options. If intended option is not shown, [...] times daily; Duration: 30 days 04/05/2025 Active Ventolin HFA 108 (90 Base) MCG/ACT 2 puff(s) inhaled 4 times a day PRN SOA; Duration: 90 days Active Immunizations Vaccine Route Administration Date Status Comme nts SHINGRIX IM Intramuscular 08/04/2023 Administered SHINGRIX IM Intramuscular 10/24/2023 Administered Prevnar PCV-13 (Pneumococcal conjugate 13) IM Intramuscular 11/10/2017 Administered Pneumovax 23 IM Intramuscular 04/30/2019 Administered Fluzone High Dose IM Intramuscular 07/09/2021 Administered Fluzone High Dose IM Intramuscular 07/21/2023 Administered Fluzone High Dose IM Intramuscular 07/13/2024 Administered Arexvy IM Intramuscular 12/26/2023 Administered Social History Tobacco Use: Social History [...] W/U Status Risk Notes Problem Mixed hyperlipidemia (638812151) Mixed hyperlipidemia (E78.2) Active confirmed Problem Chronic pain (04136078) Other chronic pain (G89.29) Active confirmed Problem Essential hypertension (67609733) Essential (primary) hypertension (I10) Active confirmed Problem Paroxysmal atrial fibrillation (997785225) Paroxysmal atrial fibrillation (I48.0) Active confirmed Problem Simple chronic bronchitis (77841800) Simple chronic bronchitis (J41.0) Active confirmed Problem Essential hypertension (77793909) Essential hypertension (I10) Active confirmed Problem Seasonal allergy (825907112) Seasonal allergies (J30.2) Active confirmed Problem Acute exacerbation of chronic obstructive airways disease (591111921) COPD exacerbation (J44.1) Active confirmed Problem Body mass index 30+ - obesity (379967250) BMI 30.0-30.9,adult (Z68.30) Active confirmed Problem 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, 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) Active confirmed Problem COPD - Chronic obstructive pulmonary disease (41547016) Chronic obstructive pulmonary disease, unspecified COPD type (J44.9) Active confirmed Problem Obesity (826469465) Non morbid obesity due to excess calories (E66.09) Active confirmed Problem Obese class II (938965754850495) BMI 37.0-37.9, adult (Z68.37) Active confirmed Problem Obese class II (555892314413744) BMI 36.0-36.9,adult (Z68.36) Active confirmed Problem Essential tremor (503451473) Benign essential tremor (G25.0) Active confirmed Problem Urinary hesitancy (7612005) Urinary hesitancy (R39.11) Active confirmed Problem Generalized anxiety disorder (30136119) ADELINE (generalized anxiety disorder) (F41.1) Active confirmed Problem Lower urinary tract symptoms due to benign prostatic hypertrophy (03957316059564) Benign prostatic hyperplasia with lower urinary tract symptoms, unspecified morphology (N40.1) Active confirmed Problem Contracture of palmar fascia (217345804) Dupuytren's contracture of both hands (M72.0) Active confirmed Problem Pain due to neoplastic disease (95759932792224) 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 [address] [place] [address] 01/15/2025 Provider Migration Essential hypertension I10 and ADELINE (generalized anxiety disorder) F41.[address] [address] 06/24/2024 Darian Besson Cancer related pain G89.3 ; Chronic constipation K59.09 ; Essential hypertension I10 and Hospital discharge follow-up Z09 [address] [address] 07/13/2024 Darian Besson Cancer related pain G89.3 ; Essential hypertension I10 ; Immunization(s) administered Z23 and Encounter for immunization Z23 [address] [address] 12/31/2024 Lisa Robert Paroxysmal atrial fibrillation I48.0 [...] E78.2 and Arthritis, multiple joint involvement M12.9 [facility] [address] [address] 04/12/2025 Darian Besson Acute non-recurrent maxillary sinusitis J01.00 ; Mixed hyperlipidemia E78.2 ; Essential (primary) hypertension I10 and MDS (myelodysplastic syndrome) D46.9 [facility] [address] [place] [address] 05/03/2024 Darian Besson Skin lesion L98.9 an d Arthritis, multiple joint involvement M12.9 [facility] [address] [place] [address] 05/25/2024 Darian Besson [facility] [address] [place] [address] 05/25/2024 Lisa PanchoReshmazainab [facility] [address] [place] [address] 06/18/2024 Darian Besson [facility] [address] [address] 07/19/2024 Darian Besson [facility] [address] [address] 08/02/2024 Darian Besson Cancer related pain G89.3 [facility] [address] [address] 08/09/2024 Darian Besson [facility] [address] [address] 09/02/2024 Darian Besson Cancer related pain G89.3 [facility] [address] [address] 10/04/2024 Darian Besson Cancer related pain G89.3 [facility] [address] [address] 10/11/2024 Darian Besson Seasonal allergies J30.2 [facility] [address] [address] 12/17/2024 Darian Besson ADELINE (generalized anxiety disorder) F41.1 [facility] [address] [place] [address] 12/31/2024 Lisa McNezainab Essential hypertensi on I10 [facility] [address] [place] [address] 12/31/2024 Darian Besson [facility] [address] [place] [address] 01/25/2025 Darian Besson Cancer related pain G89.3 [facility] [address] [place] [address] 02/25/2025 Darian Besson [facility] [address] [place] [address] 03/02/2025 Darian Besson Cancer related pain G89.3 [facility] [address] [address] 04/04/2025 Darina Besson Cancer related pain G89.3 [facility] [address] [place] [address] 04/05/2025 Darian Besson Cancer related pain G89.3 [facility] [address] [place] [address] 04/13/2025 Darian Besson Assessments Encounter Date Diagnosis [...] 06/19/2016 C-CMP 11/10/2017 C-CMP 06/14/2016 C-LIPID PANEL 11/10/2017 C-LIPID PANEL 06/14/2016 C-TSH 06/14/2016 C-HGBA1C 05/29/2020 VENIPUNCT, ROUTINE* 06/21/2016 M-Comprehensive Metabolic Panel 02/22/20 23 M-Comprehensive Metabolic Panel 01/01/20 25 M-Comprehensive Metabolic Panel 10/18/19 22 M-Comprehensive Metabolic Panel 10/21/19 23 M-Hemoglobin A1C 05/31/2022 M-Hemoglobin A1C 10/18/2021 M-Lipid Panel 10/18/2021 M-Lipid Panel 12/31/2024 M-Lipid Panel 05/31/2022 M-Lipid Panel 10/21/2022 M-Lipid Panel 02/21/2023 M-PSA Total+% Free 05/31/2022 Insurance Providers Payer Name Payer Address Payer Phone Subscriber Number Group Number Insured Name Patient Relationship to Insured Coverage Start Date Coverage End Date [place] [address] [place] [address] [id number] Glenn Marti Self - patient is the insured MEDICAID EDS [address] [place] [id number] Glenn Marti Self - patient is the insured [employer] [address] [place] [address] ACL Glenn Marti Self - patient is the insured Medications Administered Medication Instructions Date of Administration Dosage Notes Ceftriaxone 500 10/03/2020 500 mg Dexamethasone 4mg Injection 04/12/2025 4 mg Triamcinolone Acetonide 40mg Injection 08/25/2020 1 mL Kenalog 05/16/2016 1 mL Medical (General) History Medical History History ICD Code BPH Renal stones Former smoker ETOh abuse Dupytren's contracture bilat palms Seborrheic dermatitis HTN HLD Anxiety Spermatocele, bilat Surgical History Surgery Date(Month/Year) Hospitalization History Reason Date(Month/Year) Cancer- [facility] kidney stone
--- NOTE | 2025-05-03 09:25 | PC.NURSE ---
0925-COLLECTED LABS VIA VENIPUNCTURE STICK IN RIGHT AC WITH BUTTERFLY NEEDLE;PT TO ONCOLOGY APPT
[2025-05-03 09:48] LABS: Hematocrit 22.0 % (42.0-52.0); Hemoglobin 7.3 g/dL (14.1-18.0); Immature Granulocytes % 0.7 %; Mean Corpuscular HGB Conc 33.2 g/dL (31.8-35.4); Mean Corpuscular Hemoglobin 36.7 pg (27.0-31.2); Mean Corpuscular Volume 110.6 fl (80-94); Nucleated Red Blood Cells % 0 %; Red Blood Count 1.99 M/mm3 (4.60-6.20); Red Cell Distribution Width-SD 79.9 fL
[2025-05-03 09:51] LABS: Alanine Aminotransferase 19 U/L (12-78); Albumin Level 3.8 g/dl (3.5-5.0); Albumin/Globulin Ratio 1.2 (1.1-1.8); Alkaline Phosphatase 179 U/L (38-126); Anion Gap 8.4 mEq/L (5-15); Aspartate Amino Transferase 25 U/L (17-59); Bilirubin,Total 0.8 mg/dl (0.2-1.3); Blood Urea Nitrogen 23 mg/dl (9-20); Calcium 9.2 mg/dl (8.4-10.2); Carbon Dioxide 26 mmol/L (22.0-30.0); Chloride 108 mmol/L (98-107); Creatinine,Serum 1.40 mg/dl (0.66-1.25); Estimated Glomerular Filt Rate 49 ml/min (>60); GFR (African American) 59 ML/MIN (>60); Globulin 3.2 g/dL (1.3-3.2); Glucose 91 mg/dl (74-100); Potassium 4.4 mmoL/L (3.5-5.1); Sodium 138 mmol/L (136-145); Total Protein,Serum 7.0 g/dl (6.3-8.2)
[2025-05-03 10:10] LABS: Platelet Count 19 K/mm3 (142-424); White Blood Count 1.5 K/mm3 (4.8-10.8)
[2025-05-03 12:04] LABS: Macrocytosis 3+; Total Cells Counted 25
== END 2025-05-03 09:30 | disposition home or self-care (01) ==
LOC: INF 09:15
PROVIDERS: PCP Internal Medicine Adolescent Medicine; Visit Provider Internal Medicine Medical Oncology
DX: D46.9 Myelodysplastic syndrome, unspecified (principal)
CPT/HCPCS: 36415; 80053; 85007; 85025

== ENCOUNTER 2025-05-06 09:20 | Outpatient (CLI) | payer MEDICARE, MEDICAID, SELFPAY ==
--- OUTSIDE RECORDS SUMMARY | 2025-01-15 17:30 | XMS_ITS ---
Author Organization [facility] Address [address] [place] [address] Care Team Providers Care Gastroenterology Manager Name Role Phone Darian Brunner Primary Care Provider [phone] Migration, Provider Unavailable Unavailable REASON FOR VISIT [facility] Con[facility] Encounter Medications Medication SIG (Take, Route, [...] Center [facility] [place] [address] [facility] [address] [place] [address] 01/15/2025 Provider Migration Essential hypertension I10 and [...] Glenn MARTI BDOB:[birth year] (80 yo M)Acc No.[id number]:01/15/2025 Patient: Glenn GILMORE Provider: Caroline White :1945 A ge:79 Y S ex:Male Date:01/15/2025 Address:[facility] [address], [place], [id number] Pcp:Darian Brunner Subjective: * Chief Complaints: * 1 . [facility] * Medical History: * [...] *Please review and pick correct strength-formulation from [facility] options. If intended option is not shown, [...] Electronic signature of Prov ider Migration on 05/06/2025 at 09:23 AM EDT Sign off status: Pending * Provider: Caroline cedeño Migration Date: 0 01/15/2025 Generated for Claudette hess/Vinicio/Janineitting on: 0 05/06/2025 09:23 AM EDT
--- OUTSIDE RECORDS SUMMARY | 2025-04-08 07:45 | XMS_ITS ---
Author Organization [facility] D [place] Address [address] [place] [address] Care Team Providers Care Emergency Medicine Name Role Phone Darian Brunner Primary Care Provider [phone] Lisa Jones Unavailable [phone] REASON FOR VISIT med ck Encounters Encounter Location Date Provider Diagnosis [address] [address] 04/08/2025 Lisa Jones Plan Of Treatment No Information Progress Notes * Glenn MARTI BDOB:[birth year] (80 yo M)Acc No.[id number]:04/08/2025 Progress Notes Patient: Theresa PACKGlenn Provider: Theresa Jones APRN :1945 A ge:79 Y S ex:Male Date:04/08/2025 Address:[address] [id number] Pcp:Darian Brunner Subjective: * Chief Complaints: * 1 . Med ck. * Medical History: Objective: * Vitals: Assessment: Plan: * Treatment: * * Electronic signature of Leni Jones APRN on 05/06/2025 at 09:23 AM EDT Sign off status: Pending * Provider: Theresa Jones APRN Date: 0 04/08/2025 Generated for Printi ng/Faxing/eTransmitting on: 0 05/06/2025 09:23 AM EDT
--- OUTSIDE RECORDS SUMMARY | 2025-04-12 10:15 | XMS_ITS ---
Author Organization [facility] Address [address] [facility] [address] [place] [address] Care Team Providers Care Cripple Worker Name Role Phone Darian Brunner Primary Care Provider [phone] Allergies No Known Allergies REASON FOR VISIT [...] 04/12/2025 Encounters Encounter Location Date Provider Diagnosis [address] [address] 04/12/2025 Darian Brunner Acute non-recurrent maxillary sinusitis [...] Glenn MARTI BDOB:[birth year] (79 yo M)Acc No.[id number]:04/12/2025 Progress Notes Patient: Glenn GILMORE Lucie Provider: Rossy Brunner MD :1945 A ge:79 Y S ex:Male Date:04/12/2025 Address:[address] [place] [address] [address] [place], [id number] Subjective: * Chief Complaints: * 1 . [...] Diagno stic Procedure: jared ruiz , Cancer- [facility] . * Family History: F ather: [...] *Please review and pick correct strength-formulation from PrePayspan options. If intended option is not shown, [...] J 1100 Dexamethasone Sodium Phosphate 4mg Injection, 67993 THERAPEUTIC ADMINISTRATION * Follow Up: p rn * * Sign off status: Completed true * Provider: Rossy Brunner MD Date: 04/12/2025 Generated for Claudette hess/Vinicio/Janineitting on: 05/06/2025 09:23 AM EDT History and Physical Notes * [...]
[2025-05-06] VITALS (19 sets, daily range): BP systolic 117–151; BP diastolic 50–79; PULSE 68–80; RESP 18; TEMP 36.4–36.7; O2SAT 97–100
--- OUTSIDE RECORDS SUMMARY | 2025-05-06 09:23 | XMS_ITS | Referral Summary ---
Author Organization [facility] ([place], [place], [place], [place]) Address [address] [place] [address] Care Team Providers Care Facility Practice Specialist Name Role Phone Darian Brunner MD Primary Care Provider + [phone] Allergies No known active allergies Medications acyclovir [...] Date Celestino rded Speak language other than Swedish at home Not on file 12/25/2023 Want [...] on file Medical Devices Implanted Type Area Capacity Planner Device Identifier Shelf Expiration Date Model / Serial / Lot Iol Uv Jared +21.0 [id number] - [id number] Implanted:Qty: 1 on 11/18/2024 by Julianna Mendez MD at [facility] IMPLANTS Right: Eye ANDRÉS 08/12/2027 [id number] / [id number] / Iol Uv Clareon +20.5 [id number] - [id number] Implanted:Qty: 1 on 12/16/2024 by Julianna Mendez MD at [facility] IMPLANTS Left: Eye ANDRÉS 09/01/2027 [id number] / [id number] / Insurance MEDICARE PART A B MEDICAID [id number] Care Teams Facility Practice Specialist Relationship Specialty Start Date End Date Darian Brunner MD [address] [place] [address] PCP - General Adolescent Medicine 01/01/24
--- OUTSIDE RECORDS SUMMARY | 2025-05-06 09:23 | XMS_ITS | Patient Health Record ---
Author Organization [facility] Address [address] [facility] [address] [place] [address] Care Team Providers Care Pan Pusher Name Role Phone Darian Brunner Primary Care Provider [phone] Lisa Jones Unavailable [phone] Migration, Provider Unavailable Unavailable Allergies No Known Allergies Reason For Referral No Information Medications Medication SIG (Take, Route, Frequency, Duration) Notes Start Date End Date Status Cyclobenzaprine HCl 10 MG 1 tab(s) orally every 8 hrs as needed for back spasm; Duration: 90 days 06/18/2019 Active oxyCODONE-Acetaminophen 10-325 MG 1 tab(s) orally three times daily; Duration: 30 days 05/05/2025 Active Meloxicam 15 MG 1 tab(s) orally once a day; Duration: 90 days Active Breo Ellipta 100 MCG-25 MCG/INH 1 PUFF BY MOUTH ONCE DAILY DIRECTED; Duration: 90 DAYS *Please review and pick correct strength-formulati on from Audioscribean options. If intended option is not shown, [...] once a day; Duration: 90 days Active Ventolin HFA 108 (90 Base) MCG/ACT [...] W/U Status Risk Notes Problem Mixed hyperlipidemia (275803337) Mixed hyperlipidemia (E78.2) Active confirmed Problem Chronic pain (53830856) Other chronic pain (G89.29) Active confirmed Problem Essential hypertension (93395791) Essential (primary) hypertension (I10) Active confirmed Problem Paroxysmal atrial fibrillation (327403575) Paroxysmal atrial fibrillation (I48.0) Active confirmed Problem Simple chronic bronchitis (32523021) Simple chronic bronchitis (J41.0) Active confirmed Problem Essential hypertension (00766625) Essential hypertension (I10) Active confirmed Problem Seasonal allergy (885411108) Seasonal allergies (J30.2) Active confirmed Problem Acute exacerbation of chronic obstructive airways disease (492819729) COPD exacerbation (J44.1) Active confirmed Problem Body mass index 30+ - obesity (073286832) BMI 30.0-30.9,adult (Z68.30) Active confirmed Problem Inflammatory polyarthropathy (126980802) Arthritis, 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) Active confirmed Problem COPD - Chronic obstructive pulmonary disease (62934356) Chronic obstructive pulmonary disease, unspecified COPD type (J44.9) Active confirmed Problem Obesity (613469359) Non morbid obesity due to excess calories (E66.09) Active confirmed Problem Obese class II (430182043180087) BMI 37.0-37.9, adult (Z68.37) Active confirmed Problem Obese class II (283678680389696) BMI 36.0-36.9,adult (Z68.36) Active confirmed Problem Essential tremor (386598114) Benign essential tremor (G25.0) Active confirmed Problem Urinary hesitancy (8591320) Urinary hesitancy (R39.11) Active confirmed Problem Generalized anxiety disorder (01064641) ADELINE (generalized anxiety disorder) (F41.1) Active confirmed Problem Lower urinary tract symptoms due to benign prostatic hypertrophy (66584203324459) Benign prostatic hyperplasia with lower urinary tract symptoms, unspecified morphology (N40.1) Active confirmed Problem Contracture of palmar fascia (001300069) Dupuytren's contracture of both hands (M72.0) Active confirmed Problem Pain due to neoplastic disease (70124536714461) 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) Active confirmed Problem Myelodysplastic syndrome (625899346) MDS (myelodysplastic syndrome) (D46.9) Active confirmed Vital Signs Heart Rate 70 /min 04/12/2025 Temperature 98 degrees Fahrenheit 04/12/2025 Blood pressure diastolic 72 mm Hg 04/12/2025 Height 5 ft 8 in in 04/12/2025 Blood pressure systolic 146 mm Hg 04/12/2025 Weight 230 lbs 04/12/2025 BMI 34.97 kg/m2 04/12/2025 Encounters Encounter Location Date Provider Diagnosis [facility] [address] [place] [address] 01/15/2025 Provider Migration Essential hypertension I10 and ADELINE (generalized anxiety disorder) F41.[address] [address] 06/24/2024 Darian Besson Cancer related pain G89.3 ; Chronic constipation K59.09 ; Essential hypertension I10 and Hospital discharge follow-up Z09 [address] [address] 07/13/2024 Darian Besson Cancer related pain G89.3 ; Essential hypertension I10 ; Immunization(s) administered Z23 and Encounter for immunization Z23 [address] [address] 12/31/2024 Lisa Robert Paroxysmal atrial fibrillation I48.0 [...] E78.2 and Arthritis, multiple joint involvement M12.9 [facility] [address] [place] [address] 04/12/2025 Darian Besson Acute non-recurrent maxillary sinusitis J01.00 ; Mixed hyperlipidemia E78.2 ; Essential (primary) hypertension I10 and MDS (myelodysplastic syndrome) D46.9 [facility] [address] [place] [address] 05/25/2024 Darian Besson [facility] [address] [place] [address] 05/25/2024 Lisa McNees [facility] [address] [place] [address] 06/18/2024 Darian Besson [facility] [address] [place] [address] 07/19/2024 Darian Besson [facility] [address] [address] 08/02/2024 Darian Besson Cancer related pain G89.3 [facility] [address] [address] 08/09/2024 Darian Besson [facility] [address] [place] [address] 09/02/2024 Darian Besson Cancer related pain G89.3 [facility] [address] [address] 10/04/2024 Darian Besson Cancer related pain G89.3 [facility] [address] [place] [address] 10/11/2024 Darian Besson Seasonal allergies J30.2 [facility] [address] [address] 12/17/2024 Darian Besson ADELINE (generalized anxiety disorder) F41.1 [facility] [address] [place] [address] 12/31/2024 Lisa McNees Essential hypertensi on I10 [facility] [address] [place] [address] 12/31/2024 Darian Besson [facility] [address] [place] [address] 01/25/2025 Darian Besson Cancer related pain G89.3 [facility] [address] [place] [address] 02/25/2025 Darian Besson [facility] [address] [place] [address] 03/02/2025 Darian Besson Cancer related pain G89.3 [facility] [address] [place] [address] 04/04/2025 Darian Besson Cancer related pain G89.3 [facility] [address] [place] [address] 04/05/2025 Darian Besson Cancer related pain G89.3 [facility] [address] [place] [address] 04/13/2025 Darian Besson [facility] [address] [place] [address] 05/04/2025 Darain Besson [facility] [address] [place] [address] 05/05/2025 Darian Besson Cancer related pain G89.3 Assessments Encounter Date Diagnosis (ICD Code) Assessment Notes Treatment Notes Treatment Clinical Notes Section Notes 06/24/2024 Chronic constipation (ICD-10 - K59.09) Stable. [...] Symptomatic management with OTC saline sasal irrigation 05/05/2025 Cancer related pain (ICD-10 - G89.3) 04/12/2025 Essential (primary) hypertension (ICD-10 - I10) - Well controlled - Continue amlodipine 12/31/2024 Tremor (ICD-10 - R25.1) At baseline 07/13/2024 Immunization(s) administered (ICD-10 - Z23) 06/24/2024 Essential hypertension (ICD-10 - I10) Blood pressure good today, on amlodipine follow-up, encouraged patient to continue taking this even though he does not think he has a blood pressure problem 06/24/2024 Hospital discharge follow-up (ICD-10 - Z09) [...] 05/29/2020 VENIPUNCT, ROUTINE* 06/21/2016 M-Comprehensive Metabolic Panel 01/01/20 25 M-Comprehensive Metabolic Panel 10/18/19 22 M-Comprehensive Metabolic Panel 02/22/20 23 M-Comprehensive Metabolic Panel 10/21/19 23 M-Hemoglobin A1C 10/18/2021 M-Hemoglobin A1C 05/31/2022 M-Lipid Panel 05/31/2022 M-Lipid Panel 12/31/2024 M-Lipid Panel 02/21/2023 M-Lipid Panel 10/18/2021 M-Lipid Panel 10/21/2022 M-PSA Total+% Free 05/31/2022 Insurance Providers Payer Name Payer Address Payer Phone Subscriber Number Group Number Insured Name Patient Relationship to Insured Coverage Start Date Coverage End Date [place] [place] [address] [id number] Glenn Marti Self - patient is the insured MEDICAID EDS [address] [place] [id number] Glenn Marti Self - patient is the insured [id number] [address] [place] [address] ACL Glenn Marti Self - patient is [...]
--- OUTSIDE RECORDS SUMMARY | 2025-05-06 09:24 | XMS_ITS | Clinical Summary ---
Author Organization [facility] ([place], [place], [place], [place]) Address [address] [place] [address] Care Team Providers Care Rotary Planer Set Up Operator Name Role Phone Darian Brunner MD Primary Care Provider + [phone] Allergies No known active allergies Medications acyclovir [...] Date Celestino rded Speak language other than Uzbek at home Not on file 12/25/2023 Want [...] Completed 10/24/2023, Medical Devices Implanted Type Area Groundskeeping Maintenance Device Identifier Shelf Expiration Date Model / Serial / Lot Iol Uv Clareon +21.0 [id number] - [id number] Implanted:Qty: 1 on 11/18/2024 by Julianna Mendez MD at [facility] IMPLANTS Right: Eye ANDRÉS 08/12/2027 [id number] / [id number] / Iol Uv Clareon +20.5 [id number] - [id number] Implanted:Qty: 1 on 12/16/2024 by Julianna Mendez MD at [facility] IMPLANTS Left: Eye ANDRÉS 09/01/2027 [id number] / [id number] / Insurance MEDICARE PART A B MEDICAID B Care Teams Rotary Planer Set Up Operator Relationship Specialty Start Date End Date Darian Brunner MD [address] [place] [address] PCP - General Adolescent Medicine 01/01/24
[2025-05-06 10:11] LABS: Hematocrit 21.3 % (42.0-52.0); Hemoglobin 7.1 g/dL (14.1-18.0)
--- NOTE | 2025-05-06 10:25 | PC.NURSE ---
1025-K.MARELY, AIR CARGO GROUND OPERATIONS SUPERVISOR HERE TO WITNESS TYPE AND CROSS FOR 2 UNITS PRBCS
[2025-05-06] MEDS: 0.9 % SODIUM CHLORIDE 250 ML 25 ML IV (12:00)
== END 2025-05-06 17:00 | disposition home or self-care (01) ==
LOC: INF 09:21
PROVIDERS: PCP Internal Medicine Adolescent Medicine; Visit Provider Internal Medicine Medical Oncology
DX: D46.9 Myelodysplastic syndrome, unspecified (principal)
CPT/HCPCS: 36430; 85014; 85018; 86850; J7050; P9016

== ENCOUNTER 2025-05-17 09:08 | Outpatient (CLI) | payer MEDICARE, MEDICAID, SELFPAY ==
--- OUTSIDE RECORDS SUMMARY | 2025-01-15 17:30 | XMS_ITS ---
Author Organization [facility] Address [address] [place] [address] Care Team Providers Care Sex Offender Treatment Professional Name Role Phone Darian Brunner Primary Care Provider [phone] Migration, Provider Unavailable Unavailable REAS[facility] FOR VISIT [facility] Encounter Medications Medication SIG [...] Active Encounters Encounter Location Date Provider Diagnosis [facility] [place] [address] [facility] [address] [place] [address] 01/15/2025 Provider Migration Essential hypertension I10 and [...] Glenn MARTI BDOB:[birth year] (80 yo M)Acc No.[id number]:01/15/2025 Patient: Glenn GILMORE Provider: Caroline White :1945 A ge:79 Y S ex:Male Date:01/15/2025 Address:[facility] [address], [place], [id number] Pcp:Darian Brunner Subjective: * Chief Complaints: * [facility] . [facility] * Medical History: * [...] *Please review and pick correct [facility]. If intended option is [...] Electronic signature of Prov ider Migration on 05/17/2025 at 09:12 AM EDT Sign off status: Pending * Provider: Caroline cedeño Migration Date: 0 01/15/2025 Generated for Claudette hess/Vinicio/Janineitting on: 0 05/17/2025 09:12 AM EDT
--- OUTSIDE RECORDS SUMMARY | 2025-04-08 07:45 | XMS_ITS ---
Author Organization [facility] D [place] Address [address] [place] [address] Care Team Providers Care Graphite Mill Operator Name Role Phone Darian Brunner Primary Care Provider [phone] Lisa Jones Unavailable [phone] REASON FOR VISIT med ck Encounters Encounter Location Date Provider Diagnosis [address] [address] 04/08/2025 Lisa Jones Plan Of Treatment No Information Progress Notes * Glenn MARTI BDOB:[birth year] (80 yo M)Acc No.[id number]:04/08/2025 Progress Notes Patient: Theresa PACKGlenn Provider: Theresa Jones APRN :1945 A ge:79 Y S ex:Male Date:04/08/2025 Address:[address] [id number] Pcp:Darian Brunner Subjective: * Chief Complaints: * 1 . Med ck. * Medical History: Objective: * Vitals: Assessment: Plan: * Treatment: * * Electronic signature of Leni Jones APRN on 05/17/2025 at 09:12 AM EDT Sign off status: Pending * Provider: Theresa Jones APRN Date: 0 04/08/2025 Generated for Printi ng/Faxing/eTransmitting on: 0 05/17/2025 09:12 AM EDT
--- OUTSIDE RECORDS SUMMARY | 2025-04-12 10:15 | XMS_ITS ---
Author Organization [facility] Address [address] [facility] [address] [place] [address] Care Team Providers Care Lvn Lpn Name Role Phone Darian Brunner Primary Care Provider [phone] Allergies No Known Allergies REASON FOR VISIT [...] 04/12/2025 Encounters Encounter Location Date Provider Diagnosis [address] [address] 04/12/2025 Darian Brunner Acute non-recurrent maxillary sinusitis [...] Glenn MARTI BDOB:[birth year] (79 yo M)Acc No.[id number]:04/12/2025 Progress Notes Patient: Glenn GILMORE Lucie Provider: Rossy Brunner MD :1945 A ge:79 Y S ex:Male Date:04/12/2025 Address:[address] [place] [address] [address], [id number] Subjective: * Chief Complaints: * 1 . [...] stic Procedure: jared ruiz , Cancer- [facility] . * Family History: F ather: . [...] *Please review and pick correct strength-formulation from Hosted Americaspan options. If intended option is not shown, [...] J 1100 Dexamethasone Sodium Phosphate 4mg Injection, 22144 THERAPEUTIC ADMINISTRATION * Follow Up: p rn * * Sign off status: Completed true * Provider: Rossy Brunner MD Date: 0 04/12/2025 Generated for Claudette hess/Vinicio/Janineitting on: 0 05/17/2025 09:11 AM EDT History and Physical Notes * [...]
--- OUTSIDE RECORDS SUMMARY | 2025-05-17 09:12 | XMS_ITS | Patient Health Record ---
Author Organization [facility] Address [address] [facility] [address] [place] [address] Care Team Providers Care Motion Picture Projectionist Name Role Phone Darian Brunner Primary Care Provider Lisa Jones Unavailable [phone] Migration, Provider Unavailable Unavailable Allergies No Known [...] review and pick correct strength-formulati on from [email or web address] options. If intended option is not shown, [...] W/U Status Risk Notes Problem Mixed hyperlipidemia (805765616) Mixed hyperlipidemia (E78.2) Active confirmed Problem Chronic pain (32708909) Other chronic pain (G89.29) Active confirmed Problem Essential hypertension (15682587) Essential (primary) hypertension (I10) Active confirmed Problem Paroxysmal atrial fibrillation (103723926) Paroxysmal atrial fibrillation (I48.0) Active confirmed Problem Simple chronic bronchitis (30346746) Simple chronic bronchitis (J41.0) Active confirmed Problem Essential hypertension (66610278) Essential hypertension (I10) Active confirmed Problem Seasonal allergy (962497182) Seasonal allergies (J30.2) Active confirmed Problem Acute exacerbation of chronic obstructive airways disease (088456345) COPD exacerbation (J44.1) Active confirmed Problem Body mass index 30+ - obesity (599483486) BMI 30.0-30.9,adult (Z68.30) Active confirmed Problem 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, 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) Active confirmed Problem COPD - Chronic obstructive pulmonary disease (88346985) Chronic obstructive pulmonary disease, unspecified COPD type (J44.9) Active confirmed Problem Obesity (513497011) Non morbid obesity due to excess calories (E66.09) Active confirmed Problem Obese class II (494647977860067) BMI 37.0-37.9, adult (Z68.37) Active confirmed Problem Obese class II (104455903323674) BMI 36.0-36.9,adult (Z68.36) Active confirmed Problem Essential tremor (101961708) Benign essential tremor (G25.0) Active confirmed Problem Urinary hesitancy (8957000) Urinary hesitancy (R39.11) Active confirmed Problem Generalized anxiety disorder (10999525) ADELINE (generalized anxiety disorder) (F41.1) Active confirmed Problem Lower urinary tract symptoms due to benign prostatic hypertrophy (65675746807424) Benign prostatic hyperplasia with lower urinary tract symptoms, unspecified morphology (N40.1) Active confirmed Problem Contracture of palmar fascia (377386851) Dupuytren's contracture of both hands (M72.0) Active confirmed Problem Pain due to neoplastic disease (56161938342841) 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) Active confirmed Problem Myelodysplastic syndrome (625866957) MDS (myelodysplastic syndrome) (D46.9) Active confirmed Vital Signs Heart Rate 70 /min 04/12/2025 Temperature 98 degrees Fahrenheit 04/12/2025 Blood pressure diastolic 72 mm Hg 04/12/2025 Height 5 ft 8 in in 04/12/2025 Blood pressure systolic 146 mm Hg 04/12/2025 Weight 230 lbs 04/12/2025 BMI 34.97 kg/m2 04/12/2025 Encounters Encounter Location Date Provider Diagnosis [facility] [address] [place] [address] 01/15/2025 Provider Migration Essential hypertension I10 and ADELINE (generalized anxiety disorder) F41.[address] [address] 06/24/2024 Darian Besson Cancer related pain G89.3 ; Chronic constipation K59.09 ; Essential hypertension I10 and Hospital discharge follow-up Z09 [address] [address] 07/13/2024 Darian Besson Cancer related pain G89.3 ; Essential hypertension I10 ; Immunization(s) administered Z23 and Encounter for immunization Z23 [address] [address] 12/31/2024 Lisa Robert Paroxysmal atrial fibrillation I48.0 [...] E78.2 and Arthritis, multiple joint involvement M12.9 [facility] [address] [place] [address] 04/12/2025 Darian Besson Acute non-recurrent maxillary sinusitis J01.00 ; Mixed hyperlipidemia E78.2 ; Essential (primary) hypertension I10 and MDS (myelodysplastic syndrome) D46.9 [facility] [address] [place] [address] 05/25/2024 Darian Besson [facility] [address] [place] [address] 05/25/2024 Lsia McNees [facility] [address] [place] [address] 06/18/2024 Darian Besson [facility] [address] [place] [address] 07/19/2024 Darian Besson [facility] [address] [address] 08/02/2024 Darian Besson Cancer related pain G89.3 [facility] [address] [address] 08/09/2024 Darian Besson [facility] [address] [place] [address] 09/02/2024 Darian Besson Cancer related pain G89.3 [facility] [address] [address] 10/04/2024 Darian Besson Cancer related pain G89.3 [facility] [address] [place] [address] 10/11/2024 Darian Besson Seasonal allergies J30.2 [facility] [address] [address] 12/17/2024 Darian Besson ADELINE (generalized anxiety disorder) F41.1 [facility] [address] [place] [address] 12/31/2024 Lisa McNees Essential hypertensi on I10 [facility] [address] [place] [address] 12/31/2024 Darian Besson [facility] [address] [place] [address] 01/25/2025 Darian Besson Cancer related pain G89.3 [facility] [address] [place] [address] 02/25/2025 Darian Besson [facility] [address] [place] [address] 03/02/2025 Darian Besson Cancer related pain G89.3 [facility] [address] [place] [address] 04/04/2025 Darian Besson Cancer related pain G89.3 [facility] [address] [place] [address] 04/05/2025 Darian Besson Cancer related pain G89.3 [facility] [address] [place] [address] 04/13/2025 Darian Besson [facility] [address] [place] [address] 05/04/2025 Darian Besson [facility] [address] [place] [address] 05/05/2025 Darian Besson Cancer related pain G89.3 [...] 02/22/20 23 M-Comprehensive Metabolic Panel 10/21/19 23 M-Comprehensive Metabolic Panel 10/18/19 22 M-Comprehensive Metabolic Panel 01/01/20 25 M-Hemoglobin A1C 10/18/2021 M-Hemoglobin A1C 05/31/2022 M-Lipid Panel 05/31/2022 M-Lipid Panel 10/18/2021 M-Lipid Panel 10/21/2022 M-Lipid Panel 12/31/2024 M-Lipid Panel 02/21/2023 M-PSA Total+% Free 05/31/2022 Insurance Providers Payer Name Payer Address Payer Phone Subscriber Number Group Number Insured Name Patient Relationship to Insured Coverage Start Date Coverage End Date [place] [address] [place] [place] [phone] [id number] Glenn Marti Self - patient is the insured MEDICAID EDS [address] [place] [id number] Glenn Marti Self - patient is the insured [employer] [address] [place] [address] ACL Glenn Marti Self - patient is [...]
--- OUTSIDE RECORDS SUMMARY | 2025-05-17 09:13 | XMS_ITS | Clinical Summary ---
Author Organization [employer] ([place], [place], [place], [place]) Address [address] [place] [address] Care Team Providers Care Alligator Shear Operator Name Role Phone Darian Brunner MD Primary Care Provider + [phone] Allergies No known active allergies Medications acyclovir [...] Date Celestino rded Speak language other than Portuguese at home Not on file 12/25/2023 Want [...] Completed 10/24/2023, Medical Devices Implanted Type Area Economic Analyst Device Identifier Shelf Expiration Date Model / Serial / Lot Iol Uv Clareon +21.0 [id number] - [id number] Implanted:Qty: 1 on 11/18/2024 by Julianna Mendez MD at [facility] IMPLANTS Right: Eye ANDRÉS 08/12/2027 [id number] / [id number] / Iol Uv Clareon +20.5 [id number] - [id number] Implanted:Qty: 1 on 12/16/2024 by Julianna Mendez MD at [facility] IMPLANTS Left: Eye ANDRÉS 09/01/2027 [id number] / [id number] / Insurance MEDICARE PART A B MEDICAID B Care Teams Alligator Shear Operator Relationship Specialty Start Date End Date Darian Brunner MD [address] [place] [address] PCP - General Adolescent Medicine 01/01/24
--- OUTSIDE RECORDS SUMMARY | 2025-05-17 09:13 | XMS_ITS | Referral Summary ---
Author Organization [employer] ([place], [place], [place], [place]) Address [address] [place] [address] Care Team Providers Care Caustic Room Attendant Name Role Phone Darian Brunner MD Primary Care Provider + [phone] Allergies No known active allergies Medications acyclovir [...] Date Celestino rded Speak language other than Urdu at home Not on file 12/25/2023 Want [...] on file Medical Devices Implanted Type Area Newspaper Inserter Device Identifier Shelf Expiration Date Model / Serial / Lot Iol Uv Jared +21.0 [id number] - [id number] Implanted:Qty: 1 on 11/18/2024 by Julianna Mendez MD at [facility] IMPLANTS Right: Eye ANDRÉS 08/12/2027 [id number] / [id number] / Iol Uv Clareon +20.5 [id number] - [id number] Implanted:Qty: 1 on 12/16/2024 by Julianna Mendez MD at [facility] IMPLANTS Left: Eye ANDRÉS 09/01/2027 [id number] / [id number] / Insurance MEDICARE PART A B MEDICAID QMB Care Teams Caustic Room Attendant Relationship Specialty Start Date End Date Darian Brunner MD [address] [place] [address] PCP - General Adolescent Medicine 01/01/24
--- NOTE | 2025-05-17 09:15 | PC.NURSE ---
0915-collected labs via venipuncture stick in left ac with butterfly needle;pt to d/c home.
[2025-05-17 09:42] LABS: Hematocrit 26.8 % (42.0-52.0); Hemoglobin 8.7 g/dL (14.1-18.0); Immature Granulocytes % 0.7 %; Mean Corpuscular HGB Conc 32.5 g/dL (31.8-35.4); Mean Corpuscular Hemoglobin 33.3 pg (27.0-31.2); Mean Corpuscular Volume 102.7 fl (80-94); Nucleated Red Blood Cells % 0 %; Red Blood Count 2.61 M/mm3 (4.60-6.20); Red Cell Distribution Width-SD 81.6 fL
[2025-05-17 09:48] LABS: Platelet Count 19 K/mm3 (142-424)
[2025-05-17 09:49] LABS: White Blood Count 1.5 K/mm3 (4.8-10.8)
[2025-05-17 12:09] LABS: Macrocytosis 1+; Total Cells Counted 25
== END 2025-05-17 09:20 | disposition home or self-care (01) ==
LOC: INF 09:09
PROVIDERS: PCP Internal Medicine Adolescent Medicine; Visit Provider Internal Medicine Medical Oncology
DX: D46.9 Myelodysplastic syndrome, unspecified (principal)
CPT/HCPCS: 36415; 85007; 85025; 85027

== ENCOUNTER 2025-05-31 09:21 | Outpatient (CLI) | payer MEDICARE, MEDICAID, SELFPAY ==
--- OUTSIDE RECORDS SUMMARY | 2025-01-15 17:30 | XMS_ITS ---
Author Organization [facility] Address [address] [place] [address] Care Team Providers Care Training Facilitator Name Role Phone Darian Brunner Primary Care Provider [phone] Migration, Provider Unavailable Unavailable REASON FOR VISIT [facility] Encounter Medications Medication SIG (Take, [...] Active Encounters Encounter Location Date Provider Diagnosis [facility] [address] [facility] [address] [place] [address] 01/15/2025 Provider Migration Essential hypertension I10 and [...] Glenn MARTI BDOB:[birth year] (80 yo M)Acc No.[id number]:01/15/2025 Patient: Glenn GILMORE Provider: Caroline White :1945 A ge:79 Y S ex:Male Date:01/15/2025 Address:[facility] [address], [place], [id number] Pcp:Darian Brunner Subjective: * Chief Complaints: * 1 . [facility]. * Medical History: * Medications: [...] *Please review and pick correct strength-formulation [facility]. If intended option is not [...] Electronic signature of Prov ider Migration on 05/31/2025 at 09:31 AM EDT Sign off status: Pending * Provider: Caroline cedeño Migration Date: 0 01/15/2025 Generated for Claudette hess/Vinicio/Janineitting on: 0 05/31/2025 09:31 AM EDT
--- OUTSIDE RECORDS SUMMARY | 2025-04-08 07:45 | XMS_ITS ---
Author Organization [facility] D [place] Address [address] [place] [address] Care Team Providers Care Iuss Acoustic Analyst Name Role Phone Darian Brunner Primary Care Provider Lisa Jones Unavailable [phone] REASON FOR VISIT med ck Encounters Encounter Location Date Provider Diagnosis [address] [address] 04/08/2025 Lisa Jones Plan Of Treatment No Information Progress Notes * Glenn MARTI BDOB:[birth year] (80 yo M)Acc No.[id number]:04/08/2025 Progress Notes Patient: Theresa PACKGlenn Provider: Theresa Jones APRN :1945 A ge:79 Y S ex:Male Date:04/08/2025 Address:[address] [id number] Pcp:Darian Brunner Subjective: * Chief Complaints: * 1 . Med ck. * Medical History: Objective: * Vitals: Assessment: Plan: * Treatment: * * Electronic signature of Leni Jones APRN on 05/31/2025 at 09:31 AM EDT Sign off status: Pending * Provider: Theresa Jones APRN Date: 0 04/08/2025 Generated for Printi ng/Faxing/eTransmitting on: 0 05/31/2025 09:31 AM EDT
--- OUTSIDE RECORDS SUMMARY | 2025-04-12 10:15 | XMS_ITS ---
Author Organization [facility] Address [address] [facility] [address] [place] [address] Care Team Providers Care Vice President Biostatistics Name Role Phone Darian Brunner Primary Care Provider [phone] Allergies No Known Allergies REASON FOR VISIT [...] Encounters Encounter Location Date Provider Diagnosis [address] [address] 04/12/2025 Darian Brunner Acute non-recurrent maxillary sinusitis [...] Glenn MARTI BDOB:[birth year] (79 yo M)Acc No.[id number]:04/12/2025 Progress Notes Patient: Glenn GILMORE Lucie Provider: Rossy Brunner MD :1945 A ge:79 Y S ex:Male Date:04/12/2025 Address:[address] [place] [address] [address] [place], [id number] Subjective: * Chief Complaints: * 1 . [...] Diagno stic Procedure: jared ruiz , Cancer- [facility] . * Family History: F ather: [...] *Please review and pick correct strength-formulation from Jike Xueyuanspan options. If intended option is not shown, [...] J 1100 Dexamethasone Sodium Phosphate 4mg Injection, [address]9434 THERAPEUTIC ADMINISTRATION * Follow Up: p rn * * Sign off status: Completed true * Provider: Rossy Brunner MD Date: 0 04/12/2025 Generated for Claudette hess/Vinicio/Janineitting on: 0 05/31/2025 09:31 AM EDT History and Physical Notes * [...]
--- OUTSIDE RECORDS SUMMARY | 2025-05-31 09:31 | XMS_ITS | Patient Health Record ---
Author Organization [facility] Address [address] [facility] [address] [place] [address] Care Team Providers Care Repeat Chief Name Role Phone Darian Brunner Primary Care Provider Lisa Jones Unavailable [phone] Migration, Provider Unavailable Unavailable Allergies No Known [...] review and pick correct strength-formulati on from [employer] options. If intended option is not shown, [...] W/U Status Risk Notes Problem Mixed hyperlipidemia (975263232) Mixed hyperlipidemia (E78.2) Active confirmed Problem Chronic pain (15788004) Other chronic pain (G89.29) Active confirmed Problem Essential hypertension (56122570) Essential (primary) hypertension (I10) Active confirmed Problem Paroxysmal atrial fibrillation (516167257) Paroxysmal atrial fibrillation (I48.0) Active confirmed Problem Simple chronic bronchitis (51306416) Simple chronic bronchitis (J41.0) Active confirmed Problem Essential hypertension (47896720) Essential hypertension (I10) Active confirmed Problem Seasonal allergy (863127451) Seasonal allergies (J30.2) Active confirmed Problem Acute exacerbation of chronic obstructive airways disease (703385041) COPD exacerbation (J44.1) Active confirmed Problem Body mass index 30+ - obesity (486193313) BMI 30.0-30.9,adult (Z68.30) Active confirmed Problem Inflammatory polyarthropathy (477983532) Arthritis, 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) Active confirmed Problem COPD - Chronic obstructive pulmonary disease (05347410) Chronic obstructive pulmonary disease, unspecified COPD type (J44.9) Active confirmed Problem Obesity (878958394) Non morbid obesity due to excess calories (E66.09) Active confirmed Problem Obese class II (579373929443848) BMI 37.0-37.9, adult (Z68.37) Active confirmed Problem Obese class II (629812889028793) BMI 36.0-36.9,adult (Z68.36) Active confirmed Problem Essential tremor (637521723) Benign essential tremor (G25.0) Active confirmed Problem Urinary hesitancy (0619941) Urinary hesitancy (R39.11) Active confirmed Problem Generalized anxiety disorder (62685210) ADELINE (generalized anxiety disorder) (F41.1) Active confirmed Problem Lower urinary tract symptoms due to benign prostatic hypertrophy (40446911663077) Benign prostatic hyperplasia with lower urinary tract symptoms, unspecified morphology (N40.1) Active confirmed Problem Contracture of palmar fascia (701569094) Dupuytren's contracture of both hands (M72.0) Active confirmed Problem Pain due to neoplastic disease (39587598579850) 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) Active confirmed Problem Myelodysplastic syndrome (822089074) MDS (myelodysplastic syndrome) (D46.9) Active confirmed Vital Signs Heart Rate 70 /min 04/12/2025 Temperature 98 degrees Fahrenheit 04/12/2025 Blood pressure diastolic 72 mm Hg 04/12/2025 Height 5 ft 8 in in 04/12/2025 Blood pressure systolic 146 mm Hg 04/12/2025 Weight 230 lbs 04/12/2025 BMI 34.97 kg/m2 04/12/2025 Encounters Encounter Location Date Provider Diagnosis [facility] [address] [place] [address] 01/15/2025 Provider Migration Essential hypertension I10 and ADELINE (generalized anxiety disorder) F41.[address] [address] 06/24/2024 Darian Besson Cancer related pain G89.3 ; Chronic constipation K59.09 ; Essential hypertension I10 and Hospital discharge follow-up Z09 [address] [address] 07/13/2024 Darian Besson Cancer related pain G89.3 ; Essential hypertension I10 ; Immunization(s) administered Z23 and Encounter for immunization Z23 [address] [address] 12/31/2024 Lisa Robert Paroxysmal atrial fibrillation I48.0 [...] E78.2 and Arthritis, multiple joint involvement M12.9 [facility] [address] [place] [address] 04/12/2025 Darian Besson Acute non-recurrent maxillary sinusitis J01.00 ; Mixed hyperlipidemia E78.2 ; Essential (primary) hypertension I10 and MDS (myelodysplastic syndrome) D46.9 [facility] [address] [place] [address] 06/18/2024 Darian Besson [facility] [address] [address] 07/19/2024 Darian Besson [facility] [address] [address] 08/02/2024 Darian Besson Cancer related pain G89.3 [facility] [address] [address] 08/09/2024 Darian Besson [facility] [address] [place] [address] 09/02/2024 Darian Besson Cancer related pain G89.3 [facility] [address] [address] 10/04/2024 Darian Besson Cancer related pain G89.3 [facility] [address] [place] [address] 10/11/2024 Darian Besson Seasonal allergies J30.2 [facility] [address] [place] [address] 12/17/2024 Darian Besson ADELINE (generalized anxiety disorder) F41.1 [facility] [address] [place] [address] 12/31/2024 Lisa McNees Essential hypertensi on I10 [facility] [address] [place] [address] 12/31/2024 Darian Besson [facility] [address] [place] [address] 01/25/2025 Darian Besson Cancer related pain G89.3 [facility] [address] [place] [address] 02/25/2025 Darian Besson [facility] [address] [place] [address] 03/02/2025 Darian Besson Cancer related pain G89.3 [facility] [address] [place] [address] 04/04/2025 Darian Besson Cancer related pain G89.3 [facility] [address] [place] [address] 04/05/2025 Darian Besson Cancer related pain G89.3 [facility] [address] [place] [address] 04/13/2025 Darian Besson [facility] [address] [place] [address] 05/04/2025 Darian Besson [facility] [address] [place] [address] 05/05/2025 Darian Besson Cancer related pain G89.3 [...] End Date [place] [address] [place] [place] [address] [phone] [id number] Glenn Marti Self - patient is the insured MEDICAID EDS [address] [place] [address] [id number] Glenn Marti Self - patient is the insured [employer] [address] [place] [address] [phone] [id number] Glenn Marti Self - patient is [...]
--- OUTSIDE RECORDS SUMMARY | 2025-05-31 09:32 | XMS_ITS | Referral Summary ---
Author Organization [employer] ([place], [place], [place], [place]) Address [address] [place] [address] Care Team Providers Care Substation Electrician Supervisor Name Role Phone Darian Brunner MD Primary Care Provider + [phone] Allergies No known active allergies Medications acyclovir [...] Date Celestino rded Speak language other than Barbadian at home Not on file 12/25/2023 Want [...] on file Medical Devices Implanted Type Area Reinforcing Steel Machine Operator Device Identifier Shelf Expiration Date Model / Serial / Lot Iol Uv Jared +21.0 [id number] - [id number] Implanted:Qty: 1 on 11/18/2024 by Julianna Mendez MD at [facility] IMPLANTS Right: Eye ANDRÉS 08/12/2027 [id number] / [id number] / Iol Uv Clareon +20.5 [id number] - [id number] Implanted:Qty: 1 on 12/16/2024 by Julianna Mendez MD at [facility] IMPLANTS Left: Eye ANDRÉS 09/01/2027 [id number] / [id number] / Insurance MEDICARE PART A B MEDICAID QMB Care Teams Substation Electrician Supervisor Relationship Specialty Start Date End Date Darian Brunner MD [address] [place] [address] PCP - General Adolescent Medicine 01/01/24
--- OUTSIDE RECORDS SUMMARY | 2025-05-31 09:32 | XMS_ITS | Clinical Summary ---
Author Organization [employer] ([place], [place], [place], [place]) Address [address] [place] [address] Care Team Providers Care Cake Icer Name Role Phone Darian Brunner MD Primary Care Provider + [phone] Allergies No known active allergies Medications acyclovir [...] Date Celestino rded Speak language other than [place] at home Not on file 12/25/2023 Want [...] Completed 10/24/2023, Medical Devices Implanted Type Area Assessment Coordinator Device Identifier Shelf Expiration Date Model / Serial / Lot Iol Uv Clareon +21.0 [id number] - [id number] Implanted:Qty: 1 on 11/18/2024 by Julianna Mendez MD at [facility] IMPLANTS Right: Eye ANDRÉS 08/12/2027 [id number] / [id number] / Iol Uv Clareon +20.5 [id number] - [id number] Implanted:Qty: 1 on 12/16/2024 by Julianna Mendez MD at [facility] IMPLANTS Left: Eye ANDRÉS 09/01/2027 [id number] / [id number] 6 / Insurance MEDICARE PART A B MEDICAID B Care Teams Cake Icer Relationship Specialty Start Date End Date Darian Brunner MD [address] [place] [address] PCP - General Adolescent Medicine 01/01/24
[2025-05-31 09:42] LABS: Hematocrit 23.5 % (42.0-52.0); Hemoglobin 7.6 g/dL (14.1-18.0); Immature Granulocytes % 0.7 %; Mean Corpuscular HGB Conc 32.3 g/dL (31.8-35.4); Mean Corpuscular Hemoglobin 33.6 pg (27.0-31.2); Mean Corpuscular Volume 104.0 fl (80-94); Nucleated Red Blood Cells % 0 %; Red Blood Count 2.26 M/mm3 (4.60-6.20); Red Cell Distribution Width-SD 83.0 fL
[2025-05-31 09:46] LABS: White Blood Count 1.4 K/mm3 (4.8-10.8)
[2025-05-31 09:47] LABS: Platelet Count 16 K/mm3 (142-424)
[2025-05-31 09:48] LABS: Albumin Level 3.8 g/dl (3.5-5.0); Chloride 110 mmol/L (98-107); Potassium 3.7 mmoL/L (3.5-5.1); Sodium 140 mmol/L (136-145)
[2025-05-31 09:50] LABS: Blood Urea Nitrogen 17 mg/dl (9-20); Creatinine,Serum 1.10 mg/dl (0.66-1.25); Estimated Glomerular Filt Rate 64 ml/min (>60); GFR (African American) 78 ML/MIN (>60)
[2025-05-31 09:51] LABS: Alanine Aminotransferase 18 U/L (12-78); Albumin/Globulin Ratio 1.2 (1.1-1.8); Alkaline Phosphatase 153 U/L (38-126); Anion Gap 9.7 mEq/L (5-15); Aspartate Amino Transferase 27 U/L (17-59); Bilirubin,Total 0.8 mg/dl (0.2-1.3); Calcium 8.6 mg/dl (8.4-10.2); Carbon Dioxide 24 mmol/L (22.0-30.0); Globulin 3.2 g/dL (1.3-3.2); Glucose 135 mg/dl (74-100); Total Protein,Serum 7.0 g/dl (6.3-8.2)
[2025-05-31 11:06] LABS: Anisocytosis 1+; Macrocytosis 1+; Total Cells Counted 25
== END 2025-05-31 09:30 | disposition home or self-care (01) ==
LOC: INF 09:26
PROVIDERS: PCP Nurse Practitioner Family; Visit Provider Internal Medicine Medical Oncology
DX: D46.9 Myelodysplastic syndrome, unspecified (principal)
CPT/HCPCS: 36415; 80053; 85007; 85025; 85027

== ENCOUNTER 2025-06-07 09:02 | Outpatient (CLI) | payer MEDICARE, MEDICAID, SELFPAY ==
--- OUTSIDE RECORDS SUMMARY | 2025-01-15 17:30 | XMS_ITS ---
Author Organization [facility] Address [address] [place] [address] Care Team Providers Care Cardiovascular Radiologic Technologist Name Role Phone Darian Brunner Primary Care Provider Migration, Provider Unavailable Unavailable REASON FOR VISIT [facility] Encounter Medications Medication SIG (Take, [...] Encounter Location Date Provider Diagnosis [facility] [place] [address] [facility] [address] [place] [address] 01/15/2025 Provider Migration Essential hypertension I10 and [...] Glenn MARTI BDOB:[birth year] (80 yo M)Acc No.[id number]:01/15/2025 Patient: Glenn GILMORE Provider: Caroline White :1945 A ge:79 Y S ex:Male Date:01/15/2025 Address:[facility] [address], [place], [id number] Pcp:Darian Brunner Subjective: * Chief Complaints: * 1 . [facility]. * Medical History: [...] review and pick [facility]. If intended option is not [...] Electronic signature of Prov ider Migration on 06/07/2025 at 09:06 AM EDT Sign off status: Pending * Provider: Caroline cedeño Migration Date: 0 01/15/2025 Generated for Claudette hess/Vinicio/Janineitting on: 0 06/07/2025 09:06 AM EDT
--- OUTSIDE RECORDS SUMMARY | 2025-04-08 07:45 | XMS_ITS ---
Author Organization [facility] D [place] Address [address] [place] [address] Care Team Providers Care Electronic Sensing Equipment Assembler Name Role Phone Darian Brunner Primary Care Provider Lisa Jones Unavailable [phone] REASON FOR VISIT med ck Encounters Encounter Location Date Provider Diagnosis [address] [address] 04/08/2025 Lisa Jones Plan Of Treatment No Information Progress Notes * Glenn MARTI BDOB:[birth year] (80 yo M)Acc No.[id number]:04/08/2025 Progress Notes Patient: Theresa PACKGlenn Provider: Theresa Jones APRN :1945 A ge:79 Y S ex:Male Date:04/08/2025 Address:[address] [id number] Pcp:Darian Brunner Subjective: * Chief Complaints: * 1 . Med ck. * Medical History: Objective: * Vitals: Assessment: Plan: * Treatment: * * Electronic signature of Leni Jones APRN on 06/07/2025 at 09:06 AM EDT Sign off status: Pending * Provider: Theresa Jones APRN Date: 0 04/08/2025 Generated for Printi ng/Faxing/eTransmitting on: 0 06/07/2025 09:06 AM EDT
--- OUTSIDE RECORDS SUMMARY | 2025-04-12 10:15 | XMS_ITS ---
Author Organization [facility] Address [address] [facility] [address] [place] [address] Care Team Providers Care Gear Tooth Grinding Machine Operator Name Role Phone Darian Brunner [...] Vital Signs Temperature 98 degrees Fahrenheit 04/12/2025 Blood pressure systolic 146 mm Hg 04/12/20 25 Blood pressure diastolic 72 mm Hg 025 Heart Rate 70 /min 04/12/2025 Height 5 ft 8 in in 04/12/2025 Weight 230 lbs 04/12/2025 BMI 34.97 kg/m2 04/12/2025 Encounters Encounter Location Date Provider Diagnosis [address] [address] 04/12/2025 Darian Brunner Acute non-recurrent maxillary sinusitis [...] Glenn MARTI BDOB:[birth year] (79 yo M)Acc No.[id number]:04/12/2025 Progress Notes Patient: Glenn GILMORE Lucie Provider: Rossy Brunner MD :1945 A ge:79 Y S ex:Male Date:04/12/2025 Address:[address] [place] [address] [address], [id number] Subjective: * Chief Complaints: * 1 . [...] Diagno stic Procedure: jared ruiz , Cancer- [facility] . * Family History: F [...] *Please review and pick correct strength-formulation from bluebottlebizspan options. If intended option is not shown, [...] J 1100 Dexamethasone Sodium Phosphate 4mg Injection, 85875 THERAPEUTIC ADMINISTRATION * Follow Up: p rn * * Sign off status: Completed true * Provider: Rossy Brunner MD Date: 0 04/12/2025 Generated for Claudette hess/Vinicio/Janineitting on: 0 06/07/2025 09:05 AM EDT History and Physical Notes * [...]
[2025-06-07] VITALS (11 sets, daily range): BP systolic 105–133; BP diastolic 52–72; PULSE 68–77; RESP 18; TEMP 36.1–36.6; O2SAT 99–100
--- OUTSIDE RECORDS SUMMARY | 2025-06-07 09:06 | XMS_ITS | Patient Health Record ---
Author Organization [facility] Address [address] [facility] [address] [place] [address] Care Team Providers Care Photographic Restorer Name Role Phone Darian Brunner Primary Care Provider GemzainabLisa Unavailable [phone] Migration, Provider Unavailable Unavailable Allergies No Known Allergies Reason For Referral No Information Medications Medication SIG (Take, Route, Frequency, Duration) Notes Start Date End Date Status oxyCODONE-Acetaminophen 10-325 MG 1 tab(s) orally three times daily; Duration: 30 days 06/06/2025 Active Cyclobenzaprine HCl 10 MG 1 tab(s) orally every 8 hrs as needed for back spasm; Duration: 90 days 06/18/2019 Active Meloxicam 15 MG 1 tab(s) orally once a day; Duration: 90 days Active Breo Ellipta 100 MCG-25 MCG/INH 1 PUFF BY MOUTH ONCE DAILY DIRECTED; Duration: 90 DAYS *Please review and pick correct strength-formulati on from [employer] options. If intended option is not shown, [...] W/U Status Risk Notes Problem Mixed hyperlipidemia (098972271) Mixed hyperlipidemia (E78.2) Active confirmed Problem Chronic pain (79019637) Other chronic pain (G89.29) Active confirmed Problem Essential hypertension (84099681) Essential (primary) hypertension (I10) Active confirmed Problem Paroxysmal atrial fibrillation (870146225) Paroxysmal atrial fibrillation (I48.0) Active confirmed Problem Simple chronic bronchitis (04856967) Simple chronic bronchitis (J41.0) Active confirmed Problem Essential hypertension (06745791) Essential hypertension (I10) Active confirmed Problem Seasonal allergy (940033683) Seasonal allergies (J30.2) Active confirmed Problem Acute exacerbation of chronic obstructive airways disease (769572257) COPD exacerbation (J44.1) Active confirmed Problem Body mass index 30+ - obesity (986035352) BMI 30.0-30.9,adult (Z68.30) Active confirmed Problem Inflammatory polyarthropathy (190646510) Arthritis, 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) Active confirmed Problem COPD - Chronic obstructive pulmonary disease (01662174) Chronic obstructive pulmonary disease, unspecified COPD type (J44.9) Active confirmed Problem Obesity (063183681) Non morbid obesity due to excess calories (E66.09) Active confirmed Problem Obese class II (463319995455906) BMI 37.0-37.9, adult (Z68.37) Active confirmed Problem Obese class II (540650197113360) BMI 36.0-36.9,adult (Z68.36) Active confirmed Problem Essential tremor (387724356) Benign essential tremor (G25.0) Active confirmed Problem Urinary hesitancy (3287565) Urinary hesitancy (R39.11) Active confirmed Problem Generalized anxiety disorder (87454199) ADELINE (generalized anxiety disorder) (F41.1) Active confirmed Problem Lower urinary tract symptoms due to benign prostatic hypertrophy (91623640687685) Benign prostatic hyperplasia with lower urinary tract symptoms, unspecified morphology (N40.1) Active confirmed Problem Contracture of palmar fascia (202022789) Dupuytren's contracture of both hands (M72.0) Active confirmed Problem Pain due to neoplastic disease (98550811999222) 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) Active confirmed Problem Myelodysplastic syndrome (912036058) MDS (myelodysplastic syndrome) (D46.9) Active confirmed Vital Signs Heart Rate 70 /min 04/12/2025 Temperature 98 degrees Fahrenheit 04/12/2025 Blood pressure diastolic 72 mm Hg 04/12/2025 Height 5 ft 8 in in 04/12/2025 Blood pressure systolic 146 mm Hg 04/12/2025 Weight 230 lbs 04/12/2025 BMI 34.97 kg/m2 04/12/2025 Encounters Encounter Location Date Provider Diagnosis [facility] [address] [place] [address] 01/15/2025 Provider Migration Essential hypertension I10 and ADELINE (generalized anxiety disorder) F41.[address] [address] 06/24/2024 Darian Besson Cancer related pain G89.3 ; Chronic constipation K59.09 ; Essential hypertension I10 and Hospital discharge follow-up Z09 [address] [address] 07/13/2024 Darian Besson Cancer related pain G89.3 ; Essential hypertension I10 ; Immunization(s) administered Z23 and Encounter for immunization Z23 [address] [address] 12/31/2024 Lisa Robert Paroxysmal atrial fibrillation I48.0 [...] E78.2 and Arthritis, multiple joint involvement M12.9 [facility] [address] [place] [address] 04/12/2025 Darian Besson Acute non-recurrent maxillary sinusitis J01.00 ; Mixed hyperlipidemia E78.2 ; Essential (primary) hypertension I10 and MDS (myelodysplastic syndrome) D46.9 [facility] [address] [place] [address] 06/18/2024 Darian Besson [facility] [address] [address] 07/19/2024 Darian Besson [facility] [place] [address] [address] 08/02/2024 Darian Besson Cancer related pain G89.3 [facility] [address] [address] 08/09/2024 Darian Besson [facility] [address] [place] [address] 09/02/2024 Darian Besson Cancer related pain G89.3 [facility] [address] [address] 10/04/2024 Darian Besson Cancer related pain G89.3 [facility] [address] [place] [address] 10/11/2024 Darian Besson Seasonal allergies J30.2 [facility] [address] [place] [address] 12/17/2024 Darian Besson ADELINE (generalized anxiety disorder) F41.1 [facility] [address] [place] [address] 12/31/2024 Lisa McNees Essential hypertensi on I10 [facility] [address] [place] [address] 12/31/2024 Darian Besson [facility] [address] [place] [address] 01/25/2025 Darian Besson Cancer related pain G89.3 [facility] [address] [place] [address] 02/25/2025 Darian Besson [facility] [place] [address] [place] [address] 03/02/2025 Darian Besson Cancer related pain G89.3 [facility] [address] [place] [address] 04/04/2025 Darian Besson Cancer related pain G89.3 [facility] [place] [address] [place] [address] 04/05/2025 Darian Besson Cancer related pain G89.3 [facility] [address] [place] [address] 04/13/2025 Darian Besson [facility] [place] [address] [place] [address] 05/04/2025 Darian Besson [facility] [place] [address] [place] [address] 05/05/2025 Darian Besson Cancer related pain G89.3 [facility] [place] [address] [place] [address] 06/06/2025 Darian Besson Cancer related pain G89.3 Assessments [...] 05/05/2025 Cancer related pain (ICD-10 - G89.3) 06/06/2025 Cancer related pain (ICD-10 - G89.3) 04/12/2025 [...] 02/22/20 23 M-Comprehensive Metabolic Panel 10/18/19 22 M-Hemoglobin A1C 05/31/2022 M-Hemoglobin A1C 10/18/2021 M-Lipid Panel 10/21/2022 M-Lipid Panel 05/31/2022 M-Lipid Panel 10/18/2021 M-Lipid Panel 12/31/2024 M-Lipid Panel 02/21/2023 M-PSA Total+% Free 05/31/2022 Insurance Providers Payer Name Payer Address Payer Phone Subscriber Number Group Number Insured Name Patient Relationship to Insured Coverage Start Date Coverage End Date [place] [address] [place] [place] [address] [id number] Glenn Marti Self - patient is the insured MEDICAID EDS [address] [place] [address] [id number] Glenn Marti Self - patient is the insured [id number] [address] [place] [address] [address] [place] [address] [phone] [id number] Glenn Marti Self - patient is [...]
--- OUTSIDE RECORDS SUMMARY | 2025-06-07 09:07 | XMS_ITS | Referral Summary ---
Author Organization [facility] ([place], [place], [place], [place]) Address [address] [place] [address] Care Team Providers Care Rehabilitation Services Aide Name Role Phone Darian Brunner MD Primary Care Provider + [phone] Allergies No known active allergies Medications acyclovir [...] Date Celestino rded Speak language other than Stateless at home Not on file 12/25/2023 Want [...] on file Medical Devices Implanted Type Area Pricing Specialist Device Identifier Shelf Expiration Date Model / Serial / Lot Iol Uv Jared +21.0 [id number] - [id number] Implanted:Qty: 1 on 11/18/2024 by Julianna Mendez MD at [facility] IMPLANTS Right: Eye ANDRÉS 08/12/2027 [id number] / [id number] / Iol Uv Clareon +20.5 [id number] - [id number] Implanted:Qty: 1 on 12/16/2024 by Julianna Mendez MD at [facility] IMPLANTS Left: Eye ANDRÉS 09/01/2027 [id number] / [id number] / Insurance MEDICARE PART A B MEDICAID [id number] Care Teams Rehabilitation Services Aide Relationship Specialty Start Date End Date Darian Brunner MD [address] [place] [address] PCP - General Adolescent Medicine 01/01/24
--- OUTSIDE RECORDS SUMMARY | 2025-06-07 09:07 | XMS_ITS | Clinical Summary ---
Author Organization [facility] ([place], [place], [place], [place]) Address [address] [place] [address] Care Team Providers Care Paper Winder Name Role Phone Darian Brunner MD Primary Care Provider + [phone] Allergies No known active allergies Medications acyclovir [...] Date Celestino rded Speak language other than Cuban at home Not on file 12/25/2023 Want [...] Completed 10/24/2023, Medical Devices Implanted Type Area Hostler Helper Device Identifier Shelf Expiration Date Model / Serial / Lot Iol Uv Clareon +21.0 [id number] - [id number] Implanted:Qty: 1 on 11/18/2024 by Julianna Mendez MD at [facility] IMPLANTS Right: Eye ANDRÉS 08/12/2027 [id number] / [id number] / Iol Uv Clareon +20.5 [id number] - [id number] Implanted:Qty: 1 on 12/16/2024 by Julianna Mendez MD at [facility] IMPLANTS Left: Eye ANDRÉS 09/01/2027 [id number] / [id number] / Insurance MEDICARE PART A B MEDICAID B Care Teams Paper Winder Relationship Specialty Start Date End Date Darian Brunner MD [address] [place] [address] PCP - General Adolescent Medicine 01/01/24
--- NOTE | 2025-06-07 09:11 | PC.NURSE ---
[id number] labs via venipuncture stick in left ac with butterfly needle;pt to wait on labs
[2025-06-07 09:33] LABS: Hematocrit 23.2 % (42.0-52.0); Hemoglobin 7.5 g/dL (14.1-18.0); Immature Granulocytes % 1.2 %; Mean Corpuscular HGB Conc 32.3 g/dL (31.8-35.4); Mean Corpuscular Hemoglobin 34.1 pg (27.0-31.2); Mean Corpuscular Volume 105.5 fl (80-94); Nucleated Red Blood Cells % 1.2 %; Red Blood Count 2.20 M/mm3 (4.60-6.20); Red Cell Distribution Width-SD 90.2 fL
[2025-06-07 09:50] LABS: Platelet Count 19 K/mm3 (142-424); White Blood Count 1.7 K/mm3 (4.8-10.8)
[2025-06-07 10:12] LABS: Macrocytosis 1+; Total Cells Counted 25
[2025-06-07] MEDS: 0.9 % SODIUM CHLORIDE 250 ML 25 ML IV (11:55)
== END 2025-06-07 14:55 | disposition home or self-care (01) ==
LOC: INF 09:04
PROVIDERS: PCP Nurse Practitioner Family; Visit Provider Internal Medicine Medical Oncology
DX: D46.9 Myelodysplastic syndrome, unspecified (principal)
CPT/HCPCS: 36430; 85007; 85025; 85027; 86850; J7050; P9016

== ENCOUNTER 2025-06-17 12:30 | Outpatient (CLI) | payer MEDICARE, MEDICAID, SELFPAY ==
--- OUTSIDE RECORDS SUMMARY | 2025-01-15 17:30 | XMS_ITS ---
Author Organization [facility] Address [address] [place] [address] Care Team Providers Care Embedded Software Manager Name Role Phone Darian Brunner Primary Care Provider Migration, Provider Unavailable Unavailable REASON FOR VISIT [facility] Encounter Medications Medication SIG [...] Active Encounters Encounter Location Date Provider Diagnosis [facility] PED [facility] [address] [facility] [address] [place] [address] 01/15/2025 Provider Migration Essential hypertension I10 and [...] days Next Appt Details Provider Name:Darian Brunner, 06/30/2025 11:15:00 AM, [address] [place] [address], [phone], Progress Notes * Glenn MARTI BDOB:[birth year] (80 yo M)Acc No.[id number]:01/15/2025 Patient: Glenn GILMORE Provider: Caroline White :1945 A ge:79 Y S ex:Male Date:01/15/2025 Address:[facility] [address], [facility], [id number] Pcp:Darian Brunner Subjective: * Chief Complaints: * 1 . [facility]. * Medical History: * [...] *Please review and pick correct [facility]-formulation from [facility]. If intended option is [...] Electronic signature of Prov ider Migration on 06/17/2025 at 12:33 PM EDT Sign off status: Pending * Provider: Caroline cedeño Migration Date: 01/15/2025 Generated for Claudette hess/Vinicio/Etienne on: 0 06/17/2025 12:33 PM EDT
--- OUTSIDE RECORDS SUMMARY | 2025-04-08 07:45 | XMS_ITS ---
Author Organization [facility] D [place] Address [address] [place] [address] Care Team Providers Care Senior Product Development Engineer Name Role Phone Darian Brunner Primary Care Provider Lisa Jones Unavailable [phone] REASON FOR VISIT med ck Encounters Encounter Location Date Provider Diagnosis [address] [address] 04/08/2025 Lisa Jones Plan Of Treatment Next Appt Details Provider Name:Darian Brunner, 06/30/2025 11:15:00 AM, [address] [place] [address], [phone], Progress Notes * Glenn MARTI BDOB:[birth year] (80 yo M)Acc No.[id number]:04/08/2025 Progress Notes Patient: Theresa Glenn PACK Provider: Theresa Jones APRN :1945 A ge:79 Y S ex:Male Date:04/08/2025 Address:[address] [id number] Pcp:Darian Brunner Subjective: * Chief Complaints: * 1 . Med ck. * Medical History: Objective: * Vitals: Assessment: Plan: * Treatment: * * Electronic signature of Leni Jones APRN on 06/17/2025 at 12:33 PM EDT Sign off status: Pending * Provider: Theresa Jones, CLARK Date: 0 04/08/2025 Generated for Claudette hess/Vinicio/Etienne on: 0 06/17/2025 12:33 PM EDT
--- OUTSIDE RECORDS SUMMARY | 2025-06-16 08:15 | XMS_ITS ---
Author Organization [facility] Address [address] [place] [address] Care Team Providers Care Pediatric Allergist Name Role Phone Darian rBunner Primary Care Provider Allergies No Known Allergies [...] review and pick correct strength-formulati on from [employer] options. If intended option is not shown, [...] 06/16/2025 Encounters Encounter Location Date Provider Diagnosis [facility] [address] [address] 06/16/2025 Darian Brunner Mechanical low back pain [...] Provider Name:Darian Brunner, 06/30/2025 11:15:00 AM, 2016 [facility], [facility], [place], [address], Progress Notes * OKSANAGlenn BDOB:[birth year] (80 yo M)Acc No.[id number]:06/16/2025 Progress Notes Patient: Glenn GILMORE Provider: Rossy Brunner MD :1945 A ge:80 Y S ex:Male Date:06/16/2025 Address:[facility] [place], [facility] Subjective: * Chief Complaints: * 1 [...] Diagno stic Procedure: jared ruiz , Cancer- [facility] . * Family History: F ather: [...] 06/16/2025 Generated for Claudette hess/Vinicio/eTransmitting on: 0 06/17/2025 12:33 PM EDT History and Physical Notes * [...]
[2025-06-17] VITALS (9 sets, daily range): BP systolic 136–159; BP diastolic 59–70; PULSE 72–81; RESP 18–74; TEMP 36.7–36.9; O2SAT 98–100
--- OUTSIDE RECORDS SUMMARY | 2025-06-17 12:34 | XMS_ITS | Patient Health Record ---
Author Organization [facility] Address [address] [facility] [address] [place] [address] Care Team Providers Care High Pressure Boiler Operator Name Role Phone Darian Brunner Primary Care Provider [phone] Gemzainab Lisa Unavailable [phone] Migration, Provider Unavailable Unavailable Allergies No Known Allergies Reason For Referral No Information Medications Medication SIG (Take, Route, Frequency, Duration) Notes Start Date End Date Status Acyclovir 800 MG 1 tab(s) orally 3 times a day; Duration: 10 days Active Ventolin HFA 108 (90 Base) MCG/ACT 2 puff(s) inhaled 4 times a day PRN SOA; Duration: 90 days Active busPIRone HCl 10 MG 1-1.5 tabs orally three times a day prn anxiety; Duration: 90 days Active Cyclobenzaprine HCl 10 MG 1 tab(s) orally every 8 hrs as needed for back spasm; Duration: 90 days 06/18/2019 Active Fluticasone Propionate 50 MCG/ACT 1 spray(s) in each nostril once a day; Duration: 90 days Active oxyCODONE-Acetaminophen 10-325 MG 1 tab(s) orally three times daily; Duration: 30 days 06/06/2025 Active amLODIPine Besylate 5 MG 1 tab(s) orally once a day; Duration: 90 days Active ICaps AREDS Formula - as directed orally; Duration: 30 day(s) Active Atorvastatin Calcium 40 MG 1 tab(s) orally once a day; Duration: 90 days Active Selenium Sulfide 2.25 % 1 miguel a applied topically 2 times a week; Duration: 30 day(s) 08/20/2019 Active Propranolol HCl 10 MG 1 tab(s) orally 2 times a day; Duration: 30 days Active Tamsulosin HCl 0.4 MG 2 caps orally once a day at bedtime; Duration: 90 days Active Breo Ellipta 100 MCG-25 MCG/INH 1 PUFF BY MOUTH ONCE DAILY DIRECTED; Duration: 90 DAYS *Please review and pick correct strength-formulati on from [employer] options. If intended option is not shown, discontinue and re-order from Quick Search* Active Levocetirizine Dihydrochloride 5 MG 1 tab(s) orally once a day (in the evening); Duration: 90 days Active Procrit 3000 UNIT/ML as directed Injection Active Meloxicam 15 MG 1 tab(s) orally once a day; Duration: 90 days Active Omeprazole Magnesium 20 MG 1 cap(s) orally once a day; Duration: 90 days Active Escitalopram Oxalate 20 MG 1 tab(s) orally once a day; Duration: 90 days Active Immunizations Vaccine Route Administration Date Status Comme nts SHINGRIX IM Intramuscular 08/04/2023 Administered SHINGRIX IM Intramuscular 10/24/2023 Administered Prevnar PCV-13 (Pneumococcal conjugate 13) IM Intramuscular 11/10/2017 Administered Pneumovax 23 IM Intramuscular 04/30/2019 Administered Fluzone High Dose IM Intramuscular 07/09/2021 Administered Fluzone High Dose IM Intramuscular 07/21/2023 Administered Fluzone High Dose IM Intramuscular 07/13/2024 Administered Fluzone High Dose IM Intramuscular 06/16/2025 Administered Arexvy IM Intramuscular 12/26/2023 Administered Social [...] Problem Status W/U Status Risk Notes Problem Paroxysmal atrial fibrillation (180713270) Paroxysmal atrial fibrillation (I48.0) Active confirmed Problem Essential hypertension (49787295) Essential hypertension (I10) Active confirmed Problem Inflammatory polyarthropathy (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, 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) Active confirmed Problem COPD - Chronic obstructive pulmonary disease (66173911) Chronic obstructive pulmonary disease, unspecified COPD type (J44.9) Active confirmed Problem Obese class II (699351587105212) BMI 37.0-37.9, adult (Z68.37) Active confirmed Problem Essential tremor (044408697) Benign essential tremor (G25.0) Active confirmed Problem Generalized anxiety disorder (98032832) ADELINE (generalized anxiety disorder) (F41.1) Active confirmed Problem Lower urinary tract symptoms due to benign prostatic hypertrophy (59556866661430) Benign prostatic hyperplasia with lower urinary tract symptoms, unspecified morphology (N40.1) Active confirmed Problem Contracture of palmar fascia (157116723) Dupuytren's contracture of both hands (M72.0) Active confirmed Problem Pain due to neoplastic disease (62161266517650) 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) Active confirmed Problem Myelodysplastic syndrome (389891982) 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) Active confirmed Vital Signs Heart Rate 68 /min 06/16/2025 Temperature 97.9 degrees Fahrenheit 06/16/2025 Blood pressure diastolic 68 mm Hg 06/16/2025 Height 5 ft 8 in in 06/16/2025 Blood pressure systolic 122 mm Hg 06/16/2025 Weight 230 lbs 06/16/2025 BMI 34.97 kg/m2 06/16/2025 Encounters Encounter Location Date Provider Diagnosis [facility] [address] [facility] [address] [place] [address] 01/15/2025 Provider Migration Essential hypertension I10 and ADELINE (generalized anxiety disorder) F41.1 [facility] [address] [address] 06/24/2024 Dariangennaro Brunner Cancer related pain G89.3 ; Chronic constipation K59.09 ; Essential hypertension I10 and Hospital discharge follow-up Z09 [facility] [address] [address] 07/13/2024 Dariangennaro Brunner Cancer related pain G89.3 ; Essential hypertension I10 ; Immunization(s) administered Z23 and Encounter for immunization Z23 [facility] [address] [address] 12/31/2024 Lisa McNees Paroxysmal atrial fibrillation I48.0 [...] E78.2 and Arthritis, multiple joint involvement M12.9 [facility] [address] [address] 04/12/2025 Dariangennaro Brunner Acute non-recurrent maxillary sinusitis J01.00 ; Mixed hyperlipidemia E78.2 ; Essential (primary) hypertension I10 and MDS (myelodysplastic syndrome) D46.9 [facility] [address] [address] 06/16/2025 Darian Besson Mechanical low back pain M54.59 ; Cancer related pain G89.3 ; Essential hypertension I10 ; ADELINE (generalized anxiety disorder) F41.1 ; MDS (myelodysplastic syndrome) D46.9 ; Routine medical exam Z00.00 and Immunization(s) administered Z23 [facility] [address] [facility] [address] [place] [address] 06/18/2024 Darian Besson [facility] [address] [place] [address] 07/19/2024 Darian Besson [facility] [address] [place] [address] 08/02/2024 Darian Besson Cancer related pain G89.3 [facility] [address] [place] [address] 08/09/2024 Darian Besson [facility] [address] [place] [address] 09/02/2024 Darian Besson Cancer related pain G89.3 [facility] [address] [place] [address] 10/04/2024 Darian Besson Cancer related pain G89.3 [facility] [address] [place] [address] 10/11/2024 Darian Besson Seasonal allergies J30.2 [facility] [address] [place] [address] 12/17/2024 Darian Besson ADELINE (generalized anxiety disorder) F41.1 [facility] [address] [place] [address] 12/31/2024 Lisa McNees Essential hypertensi on I10 [facility] [address] [place] [address] 12/31/2024 Darian Besson [facility] [address] [place] [address] 01/25/2025 Darian Besson Cancer related pain G89.3 [facility] [address] [place] [address] 02/25/2025 Darian Besson [facility] [address] [place] [address] 03/02/2025 Darian Besson Cancer related pain G89.3 [facility] [address] [place] [address] 04/04/2025 Darian Besson Cancer related pain G89.3 [facility] [address] [place] [address] 04/05/2025 Darian Besson Cancer related pain G89.3 [facility] [address] [address] 04/13/2025 Darian Besson [facility] [address] [address] 05/04/2025 Darian Besson [facility] [address] [address] 05/05/2025 Darian Besson Cancer related pain G89.3 [facility] [address] [address] 06/06/2025 Darian Besson Cancer related pain G89.3 [...] - BP today 120/54, does occasionally have dizziness/lighthea dedness, denies falls - on norvasc 10 PLAN - decrease norvasc to 5 mg daily 07/13/2024 Cancer related pain (ICD-10 - G89.3) - 2 weeks ago percocet was increased to 325-10 TID, patient is happy with this regimen PLAN - cont percocet TID prn - cont tylenol prn - hold mobic given thrombocytopenia, does get labs with oncology and can [...] 06/06/2025 Cancer related pain (ICD-10 - G89.3) 06/16/2025 Cancer related pain (ICD-10 - G89.3) See notes above about opioid pain management. No issues with dizziness, mental status changes or constipation 06/16/2025 Mechanical low back pain (ICD-10 - [...] see how this trial goes first 06/16/2025 Essential hypertension (ICD-10 - I10) Pressures are good control, no change in plans 04/12/2025 Essential (primary) hypertension (ICD-10 - I10) [...] (ICD-10 - N40.1) No acute urinary symptoms. 06/16/2025 ADELINE (generalized anxiety disorder) (ICD-10 - F41.1) Comorbidity noted. Depression screening negative 12/31/2024 Essential (primary) hypertension (ICD-10 - I10) Blood pressure at goal 06/16/2025 MDS (myelodysplastic syndrome) (ICD-10 - D46.9) Follows with hematology/oncolog y. On appropriate medication and follows with them on a regular basis 06/16/2025 Routine medical exam (ICD-10 - Z00.00) No recent falls. Functional status impaired as noted. Depression screening negative. Flu shot today. Aged out of other cancer screening. No recent smoking. 12/31/2024 Chronic obstructive pulmonary disease, unspecified COPD type (ICD-10 - J44.9) Restart breo. Continue albuterol prn 06/16/2025 Immunization(s) administered (ICD-10 - Z23) 12/31/2024 Dupuytren's contracture of both hands (ICD-10 [...] 02/22/20 23 M-Comprehensive Metabolic Panel 01/01/20 25 M-Hemoglobin A1C 10/18/2021 M-Hemoglobin A1C 05/31/2022 M-Lipid Panel 05/31/2022 M-Lipid Panel 10/21/2022 M-Lipid Panel 02/21/2023 M-Lipid Panel 10/18/2021 M-Lipid Panel 12/31/2024 M-PSA Total+% Free 05/31/2022 Next Appt Details Provider Name:Dariangennaro Brunner, 06/30/2025 11:15:00 AM, [address], [address], Insurance Providers Payer Name Payer Address Payer Phone Subscriber Number Group Number Insured Name Patient Relationship to Insured Coverage Start Date Coverage End Date [place] [address] [place] [place] [address] [id number] Figueroa Glenn Self - patient is the insured MEDICAID EDS [address] [place] [address] [phone] [id number] Figueroa Glenn Self - patient is the insured [employer] [address] [place] [address] ACL Glenn Marti Self - patient is [...]
[2025-06-17 12:44] LABS: Hematocrit 23.1 % (42.0-52.0); Hemoglobin 7.6 g/dL (14.1-18.0); Immature Granulocytes % 0.7 %; Mean Corpuscular HGB Conc 32.9 g/dL (31.8-35.4); Mean Corpuscular Hemoglobin 33.2 pg (27.0-31.2); Mean Corpuscular Volume 100.9 fl (80-94); Nucleated Red Blood Cells % 0 %; Red Blood Count 2.29 M/mm3 (4.60-6.20); Red Cell Distribution Width-SD 90.3 fL
[2025-06-17 12:50] LABS: Platelet Count 13 K/mm3 (142-424); White Blood Count 1.5 K/mm3 (4.8-10.8)
[2025-06-17] MEDS: 0.9 % SODIUM CHLORIDE 250 ML 25 ML IV (14:30)
[2025-06-17 14:55] LABS: Total Cells Counted 25
[2025-06-17 14:56] LABS: Macrocytosis 1+
--- NOTE | 2025-06-17 16:01 | PC.NURSE ---
06/17/25 1600 Report received from Svitlana Tse RN. Pt transfusion has been completed and pt in transition period for an additional hr prior to d/c. Pt noted in stable condition. No c/o or needs voiced per pt.
== END 2025-06-17 16:56 | disposition home or self-care (01) ==
LOC: INF 12:31
PROVIDERS: PCP Nurse Practitioner Family; Visit Provider Internal Medicine Medical Oncology
DX: D46.9 Myelodysplastic syndrome, unspecified (principal)
CPT/HCPCS: 36430; 85007; 85025; 86850; J7050; P9016

== ENCOUNTER 2025-06-22 10:15 | Emergency (ER) | payer MEDICARE, MEDICAID, SELFPAY ==
--- OUTSIDE RECORDS SUMMARY | 2025-01-15 17:30 | XMS_ITS ---
Author Organization [facility] Address [address] [place] [address] Care Team Providers Care Food And Beverage Order Clerk Name Role Phone Darian Brunner Primary Care Provider Migration, Provider Unavailable Unavailable REASON FOR VISIT [facility] Encounter Medications Medication SIG (Take, Route, [...] Active Encounters Encounter Location Date Provider Diagnosis [facility] [place] [address] [facility] [address] [place] [address] 01/15/2025 Provider Migration Essential hypertension I10 and [...] Details Provider Name:Darian Brunner, 06/30/2025 11:15:00 AM, [address] [place] [address], [phone], Progress Notes * Glenn MARTI BDOB:[birth year] (80 yo M)Acc No.[id number]:01/15/2025 Patient: Glenn GILMORE Provider: Caroline White :1945 A ge:79 Y S ex:Male Date:01/15/2025 Address:[facility] [address], [facility], [id number] Pcp:Darian Brunner Subjective: * Chief Complaints: * 1 . [facility]. * Medical History: [...] *Please review and pick correct [facility]ulation [facility]. If intended option is not shown, [...] Electronic signature of Prov ider Migration on 06/22/2025 at 10:30 AM EDT Sign off status: Pending * Provider: Caroline cedeño Migration Date: 0 01/15/2025 Generated for Claudette hess/Vinicio/Etienne on: 0 06/22/2025 10:30 AM EDT
--- OUTSIDE RECORDS SUMMARY | 2025-04-08 07:45 | XMS_ITS ---
Author Organization [facility] PE D [place] Address [address] [place] [address] Care Team Providers Care Ehs Teacher Name Role Phone Darian Brunner Primary Care Provider Lisa Jones Unavailable [phone] REASON FOR VISIT med ck Encounters Encounter Location Date Provider Diagnosis [address] [address] 04/08/2025 Lisa Jones Plan Of Treatment Next Appt Details Provider Name:Darian Brunner, 06/30/2025 11:15:00 AM, [address] [place] [address], [phone], Progress Notes * Glenn MARTI BDOB:[birth year] (80 yo M)Acc No.[id number]:04/08/2025 Progress Notes Patient: Theresa Glenn PACK Provider: Theresa Jones APRN :1945 A ge:79 Y S ex:Male Date:04/08/2025 Address:[address] [id number] Pcp:Darian Brunner Subjective: * Chief Complaints: * 1 . Med ck. * Medical History: Objective: * Vitals: Assessment: Plan: * Treatment: * * Electronic signature of Leni Jones APRN on 06/22/2025 at 10:30 AM EDT Sign off status: Pending * Provider: Theresa Jones, CLARK Date: 0 04/08/2025 Generated for Claudette hess/Vinicio/Etienne on: 0 06/22/2025 10:30 AM EDT
--- OUTSIDE RECORDS SUMMARY | 2025-06-16 08:15 | XMS_ITS ---
Author Organization [facility] Address [address] [place] [address] Care Team Providers Care Restaurant Busser Name Role Phone Darian Brunner Primary Care [...] review and pick correct strength-formulati on from [employer] options. If intended option is not shown, [...] 06/16/2025 Encounters Encounter Location Date Provider Diagnosis [facility] [address] [address] 06/16/2025 Darian Brunner Mechanical low back pain [...] Provider Name:Darian Brunner, 06/30/2025 11:15:00 AM, 2016 [facility], [facility] [address], [place], [address], Progress Notes * OKSANAGelnn BDOB:[birth year] (80 yo M)Acc No.[id number]:06/16/2025 Progress Notes Patient: Glenn GILMORE Provider: Rossy Brunner MD :1945 A ge:80 Y S ex:Male Date:06/16/2025 Address:[facility] [place], [facility] Subjective: * Chief Complaints: * 1 . [...] Diagno stic Procedure: jared ruiz , Cancer- [facility] . * Family History: F [...] 06/16/2025 Generated for Claudette hess/Vinicio/eTransmitting on: 0 06/22/2025 10:29 AM EDT History and Physical Notes * [...]
[2025-06-22] VITALS (8 sets, daily range): BP systolic 97–127; BP diastolic 51–69; PULSE 74–97; RESP 18; TEMP 36.8–36.9; O2SAT 94–96; BMI 31.1
--- NOTE | 2025-06-22 10:25 | PC.NURSE ---
MADIE MONACO at for pt ashleyal
--- NOTE | 2025-06-22 10:31 | XR_ITS ---
FINAL REPORT CLINICAL HISTORY: Transient shortness of breath FINDINGS: A portable view of the chest was obtained. Cardiac and mediastinal silhouettes are within normal limits. There is left basilar opacity which could be atelectasis or less likely pneumonia. There is no pleural effusion or pneumothorax. IMPRESSION: Left basilar atelectasis or less likely pneumonia. Reviewed, Interpreted and Dictated by Snow Gerber MD Transcribed by Alivia Wise Authenticated and . [facility]
--- OUTSIDE RECORDS SUMMARY | 2025-06-22 10:31 | XMS_ITS | Patient Health Record ---
Author Organization [facility] Address [address] [facility] [address] [place] [address] Care Team Providers Care Digital Controls Technical Officer Name Role Phone Darian Brunner Primary Care Provider [phone] Gemzainab Lisa Unavailable [phone] Migration, Provider Unavailable Unavailable Allergies No Known [...] review and pick correct strength-formulati on from [employer] options. 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) Active confirmed Problem COPD - Chronic obstructive pulmonary disease (11583090) Chronic obstructive pulmonary disease, unspecified COPD type (J44.9) Active confirmed Problem Obese class II (219901648174926) BMI 37.0-37.9, adult (Z68.37) Active confirmed Problem Essential tremor (413193213) Benign essential tremor (G25.0) Active confirmed Problem Generalized anxiety disorder (90805980) ADELINE (generalized anxiety disorder) (F41.1) Active confirmed Problem Lower urinary tract symptoms due to benign prostatic hypertrophy (39316402995948) Benign prostatic hyperplasia with lower urinary tract symptoms, unspecified morphology (N40.1) Active confirmed Problem Contracture of palmar fascia (939653600) Dupuytren's contracture of both hands (M72.0) Active confirmed Problem Pain due to neoplastic disease (22776887360542) 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) Active confirmed Problem Myelodysplastic syndrome (487497980) 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) Active confirmed Vital Signs Heart Rate 68 /min 06/16/2025 Temperature 97.9 degrees Fahrenheit 06/16/2025 Blood pressure diastolic 68 mm Hg 06/16/2025 Height 5 ft 8 in in 06/16/2025 Blood pressure systolic 122 mm Hg 06/16/2025 Weight 230 lbs 06/16/2025 BMI 34.97 kg/m2 06/16/2025 Encounters Encounter [facility] Date [facility] [address] [place] [address] 01/15/2025 Provider Migration Essential hypertension I10 and ADELINE (generalized anxiety disorder) F41.1 [facility] [address] [address] 06/24/2024 Dariangennaro Brunner Cancer related pain G89.3 ; Chronic constipation K59.09 ; Essential hypertension I10 and Hospital discharge follow-up Z09 [address] [address] 07/13/2024 Dariangennaro Brunner Cancer related pain G89.3 ; Essential hypertension I10 ; Immunization(s) administered Z23 and Encounter for immunization Z23 [facility] [address] [address] 12/31/2024 Lisa McNees Paroxysmal atrial fibrillation I48.0 [...] E78.2 and Arthritis, multiple joint involvement M12.[address] [address] 04/12/2025 Dariangennaro Brunner Acute non-recurrent maxillary sinusitis J01.00 ; Mixed hyperlipidemia E78.2 ; Essential (primary) hypertension I10 and MDS (myelodysplastic syndrome) D46.9 [facility] [address] [address] 06/16/2025 Dariangennaro Brunner Mechanical low back pain M54.59 ; Cancer related pain G89.3 ; Essential hypertension I10 ; ADELINE (generalized anxiety disorder) F41.1 ; MDS (myelodysplastic syndrome) D46.9 ; Routine medical exam Z00.00 and Immunization(s) administered Z23 [facility] [address] [address] 07/19/2024 Darian Besson [facility] [address] [place] [address] 08/02/2024 Darian Besson Cancer related pain G89.3 [facility] [address] [place] [address] 08/09/2024 Darian Besson [facility] [address] [place] [address] 09/02/2024 Darian Besson Cancer related pain G89.3 [facility] [address] [place] [address] 10/04/2024 Darian Besson Cancer related pain G89.3 [facility] [address] [place] [address] 10/11/2024 Darian Besson Seasonal allergies J30.2 [facility] [address] [place] [address] 12/17/2024 Darian Besson ADELINE (generalized anxiety disorder) F41.1 [facility] [address] [place] [address] 12/31/2024 Lisa McNees Essential hypertensi on I10 [facility] [address] [place] [address] 12/31/2024 Darian Besson [facility] [address] [place] [address] 01/25/2025 Darian Besson Cancer related pain G89.3 [facility] [address] [place] [address] 02/25/2025 Darian Besson [facility] [address] [place] [address] 03/02/2025 Darian Besson Cancer related pain G89.3 [facility] [address] [place] [address] 04/04/2025 Darian Besson Cancer related pain G89.3 [facility] [address] [place] [address] 04/05/2025 Darian Besson Cancer related pain G89.3 [facility] [address] [place] [address] 04/13/2025 Darian Besson [facility] [address] [address] 05/04/2025 Darian Besson [facility] [address] [address] 05/05/2025 Dariangennaro Brunner Cancer related pain G89.[address] [place] [address] [address] 06/06/2025 Darian Besnelson Cancer related pain G89.3 Assessments [...] weeks to assess how pain is doing. 08/02/2024 Cancer related pain (ICD-10 - G89.3) 10/11/2024 Seasonal allergies (ICD-10 - J30.2) 12/17/2024 ADELINE (generalized anxiety disorder) (ICD-10 - F41.1) 12/31/2024 Paroxysmal atrial fibrillation (ICD-10 - I48.0) Regular and rate controlled. Keep FU with cardiology 12/31/2024 MDS (myelodysplastic syndrome) (ICD-10 - D46.9) Stable at this time. Keep FU with oncology. Dr. Whitt note reviewed 12/31/2024 Essential hypertension (ICD-10 - I10) 04/04/2025 Cancer related pain (ICD-10 - G89.3) [...] Symptomatic management with OTC saline sasal irrigation 06/06/2025 Cancer related pain (ICD-10 - G89.3) [...] rather see how this trial goes first 05/05/2025 Cancer related pain (ICD-10 - G89.3) 03/02/2025 Cancer related pain (ICD-10 - G89.3) 01/25/2025 Cancer related pain (ICD-10 - G89.3) 01/15/2025 Essential hypertension (ICD-10 - I10) 10/04/2024 Cancer related pain (ICD-10 - G89.3) 09/02/2024 Cancer related pain (ICD-10 - G89.3) 07/13/2024 Essential hypertension (ICD-10 - I10) - [...] oncology and can resume at their discretion 07/13/2024 Immunization(s) administered (ICD-10 - Z23) 06/16/2025 Essential hypertension (ICD-10 - I10) Pressures are good control, no change in plans 04/12/2025 Essential (primary) hypertension (ICD-10 - I10) - Well controlled - Continue amlodipine 12/31/2024 Tremor (ICD-10 - R25.1) At baseline 06/24/2024 Essential hypertension (ICD-10 - I10) Blood pressure good today, on amlodipine follow-up, encouraged patient to continue taking this even though he does not think he has a blood pressure problem 06/16/2025 ADELINE (generalized anxiety disorder) (ICD-10 - F41.1) Comorbidity noted. Depression screening negative 06/24/2024 Hospital discharge follow-up (ICD-10 - Z09) Reviewed H&P and discharge summary, reconciled meds as noted above. 12/31/2024 Benign prostatic hyperplasia with lower urinary tract symptoms, unspecified morphology (ICD-10 - N40.1) No acute urinary symptoms. 04/12/2025 MDS (myelodysplastic syndrome) (ICD-10 - D46.9) - Last chemo Oct 2024, follows with Dr. Whitt - Recently started Procrit 2 months prior - Has had purpuric rash for a few weeks, it is not itchy or irritating - May be side effect of Procrit or in setting of acute illness - Counseling on RTC if worsening SOB or hematuria occurs 07/13/2024 Encounter for immunization (ICD-10 - Z23) - administer flu shot today - will give prevnar 20 at next visit 06/16/2025 MDS (myelodysplastic syndrome) (ICD-10 - D46.9) Follows with hematology/oncolog y. On appropriate medication and follows with them on a regular basis 12/31/2024 Essential (primary) hypertension (ICD-10 - I10) Blood pressure at goal 12/31/2024 Chronic obstructive pulmonary disease, unspecified COPD type (ICD-10 - J44.9) Restart breo. Continue albuterol prn 06/16/2025 Routine medical exam (ICD-10 - Z00.00) No recent falls. Functional status impaired as noted. Depression screening negative. Flu shot today. Aged out of other cancer screening. No recent smoking. 06/16/2025 Immunization(s) administered (ICD-10 - Z23) 12/31/2024 Dupuytren's contracture of both hands (ICD-10 - M72.0) Well controlled on meloxicam 12/31/2024 ADELINE (generalized anxiety disorder) (ICD-10 - F41.1) Continue propranolol and buspar. At baseline 01/15/2025 ADELINE (generalized anxiety disorder) (ICD-10 - F41.1) 12/31/2024 Mixed hyperlipidemia (ICD-10 - E78.2) LDL [...] 10/18/19 22 M-Comprehensive Metabolic Panel 02/22/20 23 M-Hemoglobin A1C 05/31/2022 M-Hemoglobin A1C 10/18/2021 M-Lipid Panel 10/18/2021 M-Lipid Panel 10/21/2022 M-Lipid Panel 12/31/2024 M-Lipid Panel 02/21/2023 M-Lipid Panel 05/31/2022 M-PSA Total+% Free 05/31/2022 Next Appt Details Provider Name:Darian Brunner, 06/30/2025 11:15:00 AM, 2017 [facility], [place], [address], Insurance Providers Payer Name Payer Address Payer Phone Subscriber Number Group Number Insured Name Patient Relationship to Insured Coverage Start Date Coverage End Date [place] [address] [place] [address] [phone] [id number] Glenn Marti Self - patient is the insured MEDICAID EDS [address] [place] [address] [id number] Glenn Marti Self - patient is the insured [place] [address] [place] [address] [phone] [id number] Figueroa Glenn Self - patient is the insured Medications [...]
--- NOTE | 2025-06-22 10:33 | HMH.EDGENADL ---
Discharge Plan Disposition Patient Disposition: Home, Self-Care Prescriptions Prescriptions: New amoxicillin 500 mg capsule 1,000 mg PO TID 7 Days Qty: 42 0RF No Action tamsulosin [Flomax] 0.4 mg capsule 0.8 mg PO HS buspirone 10 mg tablet 10 mg PO QIDP PRN (Reason: Anxiety) valacyclovir 1 gram tablet 1,000 mg PO TID Qty: 21 0RF valacyclovir 500 mg tablet 500 mg PO BID Qty: 60 5RF methylprednisolone 4 mg tablets,dose pack See Rx Instructions PO PER PKG DIR Qty: 21 0RF Rx Instructions: PO PER PKG DIR for 6 days escitalopram oxalate 20 mg tablet 20 mg PO DAILY amlodipine 5 mg tablet 5 mg PO DAILY oxycodone-acetaminophen 10-325 mg tablet 1 tab PO Q8HP PRN (Reason: Moderate Pain (Scale Score 5-6)) meloxicam 15 mg tablet 15 mg PO DAILY albuterol sulfate [Ventolin HFA] 90 mcg/actuation HFA aerosol inhaler 1 mcg inhalation NEEDED PRN (Reason: sob) levocetirizine 5 mg tablet 5 mg PO DAILY omeprazole 20 mg capsule,delayed release(DR/EC) 20 mg PO DAILY 28 Days Qty: 28 0RF atorvastatin 40 mg tablet 40 mg PO HS ofloxacin 0.3 % drops 1 drp ophthalmic (eye) QID ketorolac 0.5 % drops 1 drp ophthalmic (eye) QID prednisolone acetate 1 % drops,suspension 1 drp ophthalmic (eye) QID lactulose 10 gram/15 mL solution 20 g PO DAILYP PRN (Reason: Constipation) Referrals Follow up/Referrals: Provider,Referral, MD [Referring, Medical] - See instructions Activity Restrictions/Add. Instructions Additional Instructions/Restrictions: Your chest x-ray did show a small area in the left lung that could be pneumonia. I will prescribe antibiotics. Take these as prescribed. If you develop any new or worsening symptoms, such as black or dark stools, worsening vomiting, worsening pain, concern for developing reason, return to the emergency department for evaluation. Follow-up with your primary care physician and Dr. Salcedo. Clinical Impressions Clinical Impression: Nausea and vomiting, Pneumonia Instructions Patient Instructions: DI for Low Back Pain Print Language Print Language: Swedish Discharge ED Provider: Rivera Carr Adult HPI General Chief complaint: Back Pain/Injury Stated complaint: Back Pain Time Seen by Provider: 06/22/25 10:19 Mode of Arrival: EMS Source of Information: Patient and EMS Description of Symptoms (Recalled from ER Triage Doc. by RN): Patient presents to ED for back pain that started this morning. Patient has hx of bone marrow cancer. EMS gave 50 mcg fentanyl and 4 mg zofran en route, patient reports feeling significantly better since medications on arrival. History of Present Illness HPI narrative: Glenn Marti is an 80y male with a history of myelodysplastic syndrome with previous chemotherapy, anemia requiring recurrent transfusions who presents to the emergency department for complaints of transient episode of back pain, nausea and vomiting this morning as well as hot sweats. Patient states that he gets these episodes every now and then, at least three time since this year began. He states that when it happens, he feels like he cannot walk and gets nauseated, weak, with back pain and sweaty. In the ambulance, he states that he got medication and feels back to normal here in the emergency department. He denies any abdominal pain, chest pain. He states that he was transiently short of breath. He states that he feels like he can walk normally now. He states that he is followed by Dr. Whitt with oncology and has to get blood transfusions approximately every week. Related Data Home Medications ?Medication ?Instructions ?Recorded ?Confirmed tamsulosin 0.4 mg capsule (Flomax) 0.8 mg PO HS 07/30/18 05/31/25 escitalopram oxalate 20 mg tablet 20 mg PO DAILY 03/28/23 05/31/25 buspirone 10 mg tablet 10 mg PO QIDP PRN Anxiety 08/14/23 05/31/25 levocetirizine 5 mg tablet 5 mg PO DAILY 06/15/24 05/31/25 amlodipine 5 mg tablet 5 mg PO DAILY 07/28/24 05/31/25 oxycodone-acetaminophen 10 mg-325 1 tab PO Q8HP PRN Moderate Pain 09/02/24 05/31/25 mg tablet (Scale Score 5-6) atorvastatin 40 mg tablet 40 mg PO HS 11/09/24 05/31/25 ketorolac 0.5 % eye drops 1 drp ophthalmic (eye) QID 11/09/24 05/31/25 lactulose 10 gram/15 mL oral 20 g PO DAILYP PRN Constipation 11/09/24 05/31/25 solution ofloxacin 0.3 % eye drops 1 drp ophthalmic (eye) QID 11/09/24 05/31/25 prednisolone acetate 1 % eye 1 drp ophthalmic (eye) QID 11/09/24 05/31/25 drops,suspension albuterol sulfate 90 mcg/actuation 1 mcg inhalation NEEDED PRN sob 03/08/25 05/31/25 aerosol inhaler (Ventolin HFA) meloxicam 15 mg tablet 15 mg PO DAILY 03/08/25 05/31/25 Previous Rx's ?Medication ?Instructions ?Recorded omeprazole 20 mg capsule,delayed 20 mg PO DAILY 4 weeks #28 caps 01/15/24 release valacyclovir 1 gram tablet 1,000 mg PO TID #21 tabs 04/05/25 valacyclovir 500 mg tablet 500 mg PO BID #60 tabs 05/03/25 methylprednisolone 4 mg tablets in See Rx Instructions PO PER PKG DIR 05/31/25 a dose pack #21 tabs amoxicillin 500 mg capsule 1,000 mg (2 x 500 mg) PO TID 7 06/22/25 days #42 caps Allergies Allergy/AdvReac Type Severity Reaction Status Date / Time No Known Allergies Allergy Verified 05/31/25 10:08 [facility] Disclaimer: The information contained in this section may have been updated after the patient was seen, as this information can be updated by other users. Medical History SOB (shortness of breath) Tricuspid regurgitation Aortic regurgitation Vomiting Neutropenia with fever Constipation Febrile illness Encounter for pre-operative cardiovascular clearance New onset atrial fibrillation Abnormal electrocardiogram [ECG] [EKG] Palpitations Dyspnea Atypical chest pain Spermatocele Muscle spasm Acute exacerbation of chronic low back pain Contusion of left ankle Abrasion, left ankle, initial encounter Abnormal findings on diagnostic imaging of heart and coronary circulation History of compression fracture of spine DJD (degenerative joint disease) Chronic back pain MDS (myelodysplastic syndrome) Anxiety BPH (benign prostatic hyperplasia) Kidney stones GERD (gastroesophageal reflux disease) Atrial fibrillation History of hoarseness History of chemotherapy Hypertension Hyperlipidemia Heart murmur Cancer Surgical History History of bone marrow biopsy Family History Other Asthma Cancer Heart attack Stroke Social History Smoking Status: Never smoker alcohol intake: current alcohol intake frequency: 3 or more drinks per day substance use type: denies use current occupational status: retired Travel in the last 8 weeks?: None household members: significant other housing: house current occupational exposures/hazards: No caffeine: Yes Have you lived/traveled outside US in past 30 days?: No Contact w/someone who lives/traveled outside US past 30 days?: No Exposure to someone with infectious disease in past 14 days?: No Do you have a fever (greater than 100.4 F or 38 C)?: No Have you tested positive for COVID-19?: No Exposed to someone with COVID-19 in past 14 days?: No Do you have a sore throat?: No Do you have a cough?: No Do you have any weakness?: No Do you have any diarrhea?: No Are you experiencing any unusual bleeding?: No Do you have any muscle aches/pain?: No Do you have any abdominal pain?: No Are you experiencing loss of taste or smell?: No Other Medical History Have you received the Flu Vaccine for this season: No Have you received the Pneumonia Vaccine: Yes ROS Obtained: Yes Systems reviewed as appropriate & no additional complaints except as documented Physical Exam General General appearance: alert and in no apparent distress Head Head exam: atraumatic Eye Eye exam: Present normal appearance ENT ENT exam: Present normal external ear exam Neck Neck exam: Present full ROM Chest Chest inspection: Present symmetric chest wall rise Respiratory Respiratory exam: Present normal lung sounds bilaterally; Absent respiratory distress, wheezes or stridor Cardiovascular Cardiovascular exam: Present regular rate and normal rhythm Abdominal Exam Abdominal exam: Present soft; Absent distention, tenderness, guarding or rigidity exam: Present deferred Extremities Exam Extremities exam: Present normal inspection Back Exam Back exam: Present normal inspection Neurological Exam Neurological exam: Present alert and oriented X3 Psychiatric Psychiatric exam: Present normal affect Skin Skin exam: Present warm and dry Medical Decision Making Medical Records Screening: Per USPSTF and CDC recommendations, given the prevalence of disease in our region, it is our hospital?s policy to screen for HIV and viral Hepatitis for all patients aged 18 and over and those with ongoing risk factors. Moose Inquiry Pt receiving controlled substance: No Vital Signs: 06/22/25 10:17 06/22/25 10:17 06/22/25 10:30 Temperature 98.4 F 98.4 F Temperature Source Oral Pulse Rate 97 H 97 H Pulse Rate [Right] 97 H Respiratory Rate 18 18 Blood Pressure 116/61 97/51 L Blood Pressure [Right Arm] 116/61 Blood Pressure Mean Blood Pressure Mean [Right Arm] 79 02 Sat by Pulse Oximetry 94 L 94 L 94 L Oxygen Delivery Method Room Air 06/22/25 11:00 06/22/25 11:30 06/22/25 12:00 Temperature Temperature Source Pulse Rate 89 88 81 Pulse Rate [Right] Respiratory Rate Blood Pressure 116/60 108/58 L 118/60 Blood Pressure [Right Arm] Blood Pressure Mean 77 86 Blood Pressure Mean [Right Arm] 02 Sat by Pulse Oximetry 95 96 96 Oxygen Delivery Method Room Air Room Air Room Air 06/22/25 12:30 06/22/25 13:00 06/22/25 13:57 Temperature 98.2 F Temperature Source Pulse Rate 78 74 74 Pulse Rate [Right] Respiratory Rate 18 Blood Pressure 113/64 127/69 127/59 L Blood Pressure [Right Arm] Blood Pressure Mean 81 89 Blood Pressure Mean [Right Arm] 02 Sat by Pulse Oximetry 94 L 95 Oxygen Delivery Method Room Air Room Air Lab Data Lab Results 06/22/25 10:41: SARS-CoV-2 (PCR) Not detected, Influenza A Untype (PCR) Not detected, Influenza Type B (PCR) Not detected 06/22/25 10:49: Urine Color Yellow, Urine Appearance Clear, Urine pH 6.0, Ur Specific [place] 1.020, Urine Protein Trace, Urine Glucose (UA) Negative, Urine Ketones Negative, Urine Blood Negative, Urine Nitrate Negative, Urine Bilirubin 1+ A, Urine Urobilinogen 2.0, Ur Leukocyte Esterase Negative, Urine RBC None, Urine WBC Occasional, Ur Squamous Epith Cells None, Urine Bacteria Trace, Urine Mucus Trace 06/22/25 11:00: WBC 1.1 L*, RBC 2.48 L, Hgb 8.0 L, Hct 24.0 L, MCV 96.8 H, MCH 32.3 H, MCHC 33.3, RDW 25.0 H, Plt Count 15 L*, MPV TNP, Neut % (Auto) 59.6, Lymph % (Auto) 23.9, [place] % (Auto) 15.6 H, Eos % (Auto) 0.0 L, Baso % (Auto) 0.0 L, Neut # (Auto) 0.7 L*, Lymph # (Auto) 0.3 L, [place] # (Auto) 0.2, Eos # (Auto) 0.0, Baso # (Auto) 0.0, Total Counted 25, Neutrophils % (Manual) 64, Lymphocytes % (Manual) 32, Monocytes % (Manual) 4, Platelet Estimate Marked decrease, Hypochromasia 2+, Anisocytosis 2+, Sodium 136, Potassium 4.0, Chloride 108 H, Carbon Dioxide 22, Anion Gap 10.0, BUN 19, Creatinine 1.10, Estimated Creat Clear 79, Estimated GFR 64, Est GFR ( Amer) 78, Glucose 127 H, Calcium 8.9, Magnesium 1.6, Total Bilirubin 1.7 H, AST 57, ALT 67, Alkaline Phosphatase 421 H, Troponin I < 0.01, Total Protein 7.0, Albumin 3.5, Globulin 3.5 H, Albumin/Globulin Ratio 1.0 L 06/22/25 11:00 06/22/25 11:00 Orders (Tests/Meds): ED MEDICATIONS Discontinued Medications Generic Name Dose Route Start Last Admin Trade Name Freq PRN Reason Stop Dose Admin Lactated Ringer's 1,000 mls @ 999 mls/hr 06/22/25 11:01 06/22/25 12:11 Lactated Ringer's 1000 Ml Bag IV 06/22/25 12:01 Infused .Q1H1M ONE Infusion ORDERS Category Date Time Status CXR --portable [XR chest portable] Stat Exams 06/22/25 10:31 Completed CBC w/Auto Diff [Complete Blood Count Auto Diff] Stat Lab 06/22/25 11:00 Completed CMP [Comprehensive Metabolic Panel] Stat Lab 06/22/25 11:00 Completed Magnesium Stat Lab 06/22/25 11:00 Completed Rapid PCR Covid and Flu A/B Stat Lab 06/22/25 10:41 Completed Trop I [Troponin I] Stat Lab 06/22/25 11:00 Completed UA [Urinalysis and Microscopic] Stat Lab 06/22/25 10:49 Completed ECG Data Tracing #1: I reviewed this ECG and interpreted as documented below: NSR. RBBB. No ST elevation or depression Medical Decision Narrative: Glenn Marti is an 80y male with a history of myelodysplastic syndrome with previous chemotherapy, anemia requiring recurrent transfusions who presents to the emergency department for complaints of transient episode of back pain, nausea and vomiting this morning as well as hot sweats. Patient states that he gets these episodes every now and then since this year. He states that when it happens, he feels like he cannot walk. In the ambulance, he states that he got medication and feels back to normal here in the emergency department. He denies any abdominal pain,, chest pain. He states that he was transiently short of breath. He states that he feels like he can walk normally now. He states that he is followed by Dr. Whitt with oncology and has to get blood transfusions approximately every week. Patient is hemodynamically stable on arrival, in no acute distress, breathing comfortably on room air. Abdomen is soft, nontender and nondistended. Cardiopulmonary exam is unremarkable. Patient has no lumbar spine tenderness or stepoff and no paraspinal muscle tenderness. Differential diagnosis includes but is not limited to: electrolyte derangement, hypoglycemia, pneumonia, cardiac arrhythmia, ACS, among others. patient reports that his vomit looked like bile, but patient has no abdominal tenderness or pain and there is low concern for biliary pathology at this time. Workup in the emergency department included: Chest x-ray, EKG, rapid COVID flu test, urinalysis, CBC with differential, troponin, CMP, magnesium level. EKG without evidence of ischemia, see interpretation above. Chest x-ray interpreted by me personally. Patient has an opacity in the left base that could represent pneumonia versus atelectasis. Chest x-ray otherwise unremarkable. Patient's CBC showed chronic leukopenia with white blood cell count of 1.1 (was 1.5 on 06/17 and is not far from his baseline). Hemoglobin slightly above normal at 8 and hematocrit of 24. Platelets are chronically low and are near baseline at 15. This is likely secondary to patient's myelodysplastic syndrome. CMP without BAIRON and electrolytes grossly unremarkable nonactionable, glucose normal at 127. Magnesium normal at 1.6. Bilirubin is mildly elevated at 1.7. AST and ALT are within normal limits. Alk phos is elevated at 421. Initial troponin less than 0.01. Urinalysis with 1+ bilirubin but no evidence of infection. Chart review reveals that patient had a right upper quadrant ultrasound in October of this year that showed normal gallbladder without gallstones. Patient's duct is dilated at 9 mm. Patient did receive 1 L of lactated ringer during his ED visit. Patient was able to ambulate in the emergency department without recurrence of symptoms. On reassessment, patient feels well and is eager to get home. He continues to not have any abdominal pain. Although his bilirubin is mildly elevated and alk phos is elevated, he has no tenderness on exam and has not had any abdominal pain and has only had 1 episode of vomiting. Is felt that no additional imaging would be of benefit at this time. Given chest x-ray findings and symptoms took place earlier today, will treat this as a pneumonia. Will prescribe amoxicillin 1 g 3 times daily x 7 days. Patient is encouraged to follow-up with his PCP as well as Dr. Salcedo and to return to the emergency department if symptoms worsen. All questions were answered. He demonstrated understanding and was in agreement this plan. He was then discharged from the emergency department in stable condition. Critical Care Critical Care Time Critical Care Time: No
--- NOTE | 2025-06-22 10:43 | ECG_ITS ---
APPROVED REPORT Exam: Resting ECG HR:93 bpm ECG Measurements Heart Rate 93 AXES OR 212 P 39 QRSd 134 QRS 34 QT 373 T 32 QTc 424 Conclusion SINUS RHYTHM WITH FIRST DEGREE AV BLOCK RIGHT BUNDLE BRANCH BLOCK [120+ ms QRS DURATION, UPRIGHT V1, 40+ ms S IN I/aVL/V4/V5/V6] ABNORMAL ECG UNCONFIRMED REPORT Normal sinus rhythm. No ST elevation or depression. First-degree AV block Electronically signed by : TERESITA CRUZ, 06/22/2025 15:44:33
--- NOTE | 2025-06-22 10:45 | PC.NURSE ---
Covid/Flu Swab sent to lab at 5377
[2025-06-22 10:48] LABS: Coronavirus 19, PCR Not Detected (NotDetected); Influenza A, PCR Not Detected (NotDetected); Influenza B, PCR Not Detected (NotDetected)
--- NOTE | 2025-06-22 10:49 | PC.NURSE ---
UA sent to lab
[2025-06-22 10:54] LABS: Microscopic, Urine URINE MICROSCOPIC (MICROSCOPIC)
[2025-06-22 10:58] LABS: Color,Urine YELLOW (Yellow); Glucose,Urine (UA) Negative (Negative); Ketones,Urine Negative (Negative); Leukocyte Esterase,Urine Negative (Negative); PH,Urine 6.0 (5.0-8.5); Protein,Urine TRACE (Negative); Specific Gravity, Urine 1.020 (1.005-1.030); Urobilinogen,Urine 2.0 EU/dl (0.2)
[2025-06-22 11:09] LABS: Hematocrit 24.0 % (42.0-52.0); Hemoglobin 8.0 g/dL (14.1-18.0); Immature Granulocytes % 0.9 %; Mean Corpuscular HGB Conc 33.3 g/dL (31.8-35.4); Mean Corpuscular Hemoglobin 32.3 pg (27.0-31.2); Mean Corpuscular Volume 96.8 fl (80-94); Nucleated Red Blood Cells % 1.8 %; Red Blood Count 2.48 M/mm3 (4.60-6.20); Red Cell Distribution Width-SD 83.2 fL
[2025-06-22] MEDS: LACTATED RINGERS 1000ML 1,000 ML 999 ML IV (11:09)
[2025-06-22 11:10] LABS: Bilirubin,Urine 1+ (Negative)
[2025-06-22 11:12] LABS: Platelet Count 15 K/mm3 (142-424); White Blood Count 1.1 K/mm3 (4.8-10.8)
[2025-06-22 11:43] LABS: Bacteria,Urine Trace /lpf; Mucus,Urine Trace /lpf; WBC,Urine Occasional #/hpf (0-3)
[2025-06-22 11:53] LABS: Alanine Aminotransferase 67 U/L (12-78); Albumin Level 3.5 g/dl (3.5-5.0); Albumin/Globulin Ratio 1.0 (1.1-1.8); Alkaline Phosphatase 421 U/L (38-126); Anion Gap 10.0 mEq/L (5-15); Aspartate Amino Transferase 57 U/L (17-59); Bilirubin,Total 1.7 mg/dl (0.2-1.3); Blood Urea Nitrogen 19 mg/dl (9-20); Calcium 8.9 mg/dl (8.4-10.2); Carbon Dioxide 22 mmol/L (22.0-30.0); Chloride 108 mmol/L (98-107); Creatinine Clearance Estimated 79 mL/min (50-200); Creatinine,Serum 1.10 mg/dl (0.66-1.25); Estimated Glomerular Filt Rate 64 ml/min (>60); GFR (African American) 78 ML/MIN (>60); Globulin 3.5 g/dL (1.3-3.2); Glucose 127 mg/dl (74-100); Magnesium 1.6 mg/dl (1.6-2.3); Potassium 4.0 mmoL/L (3.5-5.1); Sodium 136 mmol/L (136-145); Total Protein,Serum 7.0 g/dl (6.3-8.2)
[2025-06-22 12:09] LABS: Troponin I < 0.01 ng/ml (0.00-0.034)
[2025-06-22 13:09] LABS: Total Cells Counted 25
[2025-06-22 13:16] LABS: Hypochromasia 2+
[2025-06-22 13:17] LABS: Anisocytosis 2+
== END 2025-06-22 14:03 | disposition home or self-care (01) ==
PROVIDERS: Emergency Provider Student in an Organized Health Care Education/Training Program; PCP Internal Medicine Adolescent Medicine
DX: J18.9 Pneumonia, unspecified organism (principal); R11.2 Nausea with vomiting, unspecified; I45.10 Unspecified right bundle-branch block; M54.9 Dorsalgia, unspecified; D46.9 Myelodysplastic syndrome, unspecified; Z85.830 Personal history of malignant neoplasm of bone
CPT/HCPCS: 71045; 80053; 81001; 83735; 84484; 85007; 85025; 85027; 87636; 93005; 96360; 99285; J7120

== ENCOUNTER 2025-06-28 09:48 | Outpatient (CLI) | payer MEDICARE, MEDICAID, SELFPAY ==
--- OUTSIDE RECORDS SUMMARY | 2025-01-15 17:30 | XMS_ITS ---
Author Organization [facility] Address [address] [place] [address] Care Team Providers Care Bench Assembler Name Role Phone Darian Brunner Primary Care Provider Migration, Provider Unavailable Unavailable REASON FOR VISIT [facility] Encounter Medications Medication SIG (Take, [...] Active Encounters Encounter Location Date Provider Diagnosis [facility] [place] [address] [facility] [address] [place] [address] 01/15/2025 Provider Migration Essential hypertension I10 and [...] Details Provider Name:Darian Brunner, 06/30/2025 11:15:00 AM, [address] [place] [address], [phone], Progress Notes * Glenn MARTI BDOB:[birth year] (80 yo M)Acc No.[id number]:01/15/2025 Patient: Glenn GILMORE Provider: Caroline White :1945 A ge:79 Y S ex:Male Date:01/15/2025 Address:[facility] [address], [facility], [id number] Pcp:Darian Brunner Subjective: * Chief Complaints: * 1 . [facility] * Medical History: [...] *Please review and pick correct strength-formulation from [facility]. If intended option is not [...] Electronic signature of Prov ider Migration on 06/28/2025 at 10:20 AM EDT Sign off status: Pending * Provider: Caroline cedeño Migration Date: 0 01/15/2025 Generated for Claudette hess/Vinicio/Etienne on: 0 06/28/2025 10:20 AM EDT
--- OUTSIDE RECORDS SUMMARY | 2025-04-08 07:45 | XMS_ITS ---
Author Organization [facility] D [place] Address [address] [place] [address] Care Team Providers Care Facilities Locator Name Role Phone Darian Brunner Primary Care Provider [phone] Lisa Jones Unavailable [phone] REASON FOR VISIT med ck Encounters Encounter Location Date Provider Diagnosis [address] [address] 04/08/2025 Lisa Jones Plan Of Treatment Next Appt Details Provider Name:Darian Brunner, 06/30/2025 11:15:00 AM, [address] [place] [address], [phone], Progress Notes * Glenn MARTI BDOB:[birth year] (80 yo M)Acc No.[id number]:04/08/2025 Progress Notes Patient: Theresa Glenn PACK Provider: Theresa Jones APRN :1945 A ge:79 Y S ex:Male Date:04/08/2025 Address:[address] [id number] Pcp:Darian Brunner Subjective: * Chief Complaints: * 1 . Med ck. * Medical History: Objective: * Vitals: Assessment: Plan: * Treatment: * * Electronic signature of Leni Jones APRN on 06/28/2025 at 10:20 AM EDT Sign off status: Pending * Provider: Theresa Jones, CLARK Date: 0 04/08/2025 Generated for Claudette hess/Vinicio/Etienne on: 0 06/28/2025 10:20 AM EDT
--- OUTSIDE RECORDS SUMMARY | 2025-06-16 08:15 | XMS_ITS ---
Author Organization [facility] Address [address] [place] [address] Care Team Providers Care Wildlife Technician Name Role Phone Darian Brunner Primary Care Provider [phone] Allergies No Known Allergies REASON FOR VISIT [...] review and pick correct strength-formulati on from [employer] options. If intended option is not shown, [...] 06/16/2025 Encounters Encounter Location Date Provider Diagnosis [facility] [address] [address] 06/16/2025 Darian Brunner Mechanical low back pain [...] prn,2 Weeks, Reas on: Provider Name:Darian Brunner, 06/30/2025 11:15:00 AM, [address] [facility], [facility], [place], [address], Progress Notes * OSKANAGlenn BDOB:[birth year] (80 yo M)Acc No.[id number]:06/16/2025 Progress Notes Patient: Glenn GILMORE Provider: Rossy Brunner MD :1945 A ge:80 Y S ex:Male Date:06/16/2025 Address:[facility] [place], [facility] Subjective: * Chief Complaints: * 1 . [...] Diagno stic Procedure: jared ruiz , Cancer- [facility] . * Family History: F ather: [...] 0 06/16/2025 Generated for Claudette hess/Vinicio/eTransmitting on: 0 06/28/2025 10:20 AM EDT History and Physical Notes * [...]
--- NOTE | 2025-06-28 09:56 | PC.NURSE ---
06/28/25 0950 Venipuncture performed using a butterfly access needle per Svitlana Tse RN x 1 stick to pt's lt ac and blood drawn. Needle withdrawn and site secured with 2x2 gauze and coban.
[2025-06-28 10:08] LABS: Hematocrit 25.4 % (42.0-52.0); Hemoglobin 8.5 g/dL (14.1-18.0); Immature Granulocytes % 0.6 %; Mean Corpuscular HGB Conc 33.5 g/dL (31.8-35.4); Mean Corpuscular Hemoglobin 33.3 pg (27.0-31.2); Mean Corpuscular Volume 99.6 fl (80-94); Nucleated Red Blood Cells % 0 %; Red Blood Count 2.55 M/mm3 (4.60-6.20); Red Cell Distribution Width-SD 87.3 fL
[2025-06-28 10:13] LABS: Platelet Count 26 K/mm3 (142-424); White Blood Count 1.6 K/mm3 (4.8-10.8)
[2025-06-28 10:20] LABS: Alanine Aminotransferase 45 U/L (12-78); Albumin Level 3.9 g/dl (3.5-5.0); Albumin/Globulin Ratio 1.1 (1.1-1.8); Alkaline Phosphatase 379 U/L (38-126); Anion Gap 13.7 mEq/L (5-15); Aspartate Amino Transferase 45 U/L (17-59); Bilirubin,Total 1.0 mg/dl (0.2-1.3); Blood Urea Nitrogen 23 mg/dl (9-20); Calcium 9.0 mg/dl (8.4-10.2); Carbon Dioxide 21 mmol/L (22.0-30.0); Chloride 109 mmol/L (98-107); Creatinine,Serum 1.30 mg/dl (0.66-1.25); Estimated Glomerular Filt Rate 53 ml/min (>60); GFR (African American) 64 ML/MIN (>60); Globulin 3.7 g/dL (1.3-3.2); Glucose 129 mg/dl (74-100); Potassium 3.7 mmoL/L (3.5-5.1); Sodium 140 mmol/L (136-145); Total Protein,Serum 7.6 g/dl (6.3-8.2)
--- OUTSIDE RECORDS SUMMARY | 2025-06-28 10:21 | XMS_ITS | Patient Health Record ---
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, 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) Active confirmed Problem COPD - Chronic obstructive pulmonary disease (81936308) Chronic obstructive pulmonary disease, unspecified COPD type (J44.9) Active confirmed Problem Obese class II (311439323955126) BMI 37.0-37.9, adult (Z68.37) Active confirmed Problem Essential tremor (177556115) Benign essential tremor (G25.0) Active confirmed Problem Generalized anxiety disorder (17703127) ADELINE (generalized anxiety disorder) (F41.1) Active confirmed Problem Lower urinary tract symptoms due to benign prostatic hypertrophy (99738533531706) Benign prostatic hyperplasia with lower urinary tract symptoms, unspecified morphology (N40.1) Active confirmed Problem Contracture of palmar fascia (860059570) Dupuytren's contracture of both hands (M72.0) Active confirmed Problem Pain due to neoplastic disease (74513842922033) 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) Active confirmed Problem Myelodysplastic syndrome (937557586) 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) Active confirmed Vital Signs Heart Rate 68 /min 06/16/2025 Temperature 97.9 degrees Fahrenheit 06/16/2025 Blood pressure diastolic 68 mm Hg 06/16/2025 Height 5 ft 8 in in 06/16/2025 Blood pressure systolic 122 mm Hg 06/16/2025 Weight 230 lbs 06/16/2025 BMI 34.97 kg/m2 06/16/2025 Encounters Encounter Location Date Provider Diagnosis [facility] [address] [place] [address] 01/15/2025 Provider Migration Essential hypertension I10 and ADELINE (generalized anxiety disorder) F41.1 [facility] [place] [address] [address] 07/13/2024 Darian Besnelson Cancer related pain G89.3 ; Essential hypertension I10 ; Immunization(s) administered Z23 and Encounter for immunization Z23 [facility] [address] [address] 12/31/2024 Lisa McNees Paroxysmal atrial fibrillation I48.0 [...] E78.2 and Arthritis, multiple joint involvement M12.[address] [facility] [address] [address] 04/12/2025 Darian Besson Acute non-recurrent maxillary sinusitis J01.00 ; Mixed hyperlipidemia E78.2 ; Essential (primary) hypertension I10 and MDS (myelodysplastic syndrome) D46.[address] [facility] [address] [address] 06/16/2025 Darian Krystleson Mechanical low back pain M54.59 ; Cancer related pain G89.3 ; Essential hypertension I10 ; ADELINE (generalized anxiety disorder) F41.1 ; MDS (myelodysplastic syndrome) D46.9 ; Routine medical exam Z00.00 and Immunization(s) administered Z23 [facility] [address] [address] 07/19/2024 Darian Besson [facility] [address] [address] 08/02/2024 Darian Besson Cancer related pain G89.[address] [facility] [address] [address] 08/09/2024 Darian Besson [facility] [address] [place] [address] 09/02/2024 Darian Besson Cancer related pain G89.3 [facility] [address] [place] [address] 10/04/2024 Darian Besson Cancer related pain G89.3 [facility] [address] [place] [address] 10/11/2024 Darian Besson Seasonal allergies J30.2 [facility] [address] [place] [address] 12/17/2024 Darian Besson ADELINE (generalized anxiety disorder) F41.1 [facility] [address] [place] [address] 12/31/2024 Lisa McNees Essential hypertensi on I10 [facility] [address] [place] [address] 12/31/2024 Darian Besson [facility] [address] [place] [address] 01/25/2025 Darian Besson Cancer related pain G89.3 [facility] [address] [place] [address] 02/25/2025 Darian Besson [facility] [address] [place] [address] 03/02/2025 Darian Besson Cancer related pain G89.3 [facility] [address] [place] [address] 04/04/2025 Darian Besson Cancer related pain G89.3 [facility] [address] [place] [address] 04/05/2025 Darian Besson Cancer related pain G89.3 [facility] [address] [place] [address] 04/13/2025 Darian Besson [facility] [address] [place] [address] 05/04/2025 Darian Besson [facility] [address] [place] [address] 05/05/2025 Darian Besson Cancer related pain G89.3 [facility] [address] [place] [address] 06/06/2025 Darian Brunner Cancer related pain G89.3 [facility] [address] [place] [address] 06/23/2025 Darian Brunner Assessments Encounter Date Diagnosis (ICD Code) Assessment Notes Treatment Notes Treatment Clinical Notes Section Notes 08/02/2024 Cancer related pain (ICD-10 - G89.3) 07/13/2024 [...] oncology and can resume at their discretion 01/15/2025 Essential hypertension (ICD-10 - I10) 09/02/2024 Cancer related pain (ICD-10 - G89.3) [...] reviewed 12/31/2024 Essential hypertension (ICD-10 - I10) 01/25/2025 Cancer [...] baseline 07/13/2024 Immunization(s) administered (ICD-10 - Z23) 07/13/2024 Encounter for immunization (ICD-10 - Z23) [...] RTC if worsening SOB or hematuria occurs 06/16/2025 ADELINE (generalized anxiety disorder) (ICD-10 - [...] 01/01/20 25 M-Comprehensive Metabolic Panel 02/22/20 23 M-Comprehensive Metabolic Panel 10/21/19 23 M-Comprehensive Metabolic Panel 10/18/19 22 M-Hemoglobin A1C 05/31/2022 M-Hemoglobin A1C 10/18/2021 M-Lipid Panel 10/21/2022 M-Lipid Panel 05/31/2022 M-Lipid Panel 10/18/2021 M-Lipid Panel 02/21/2023 M-Lipid Panel 12/31/2024 M-PSA Total+% Free 05/31/2022 Next Appt Details Provider Name:Darian Brunner, 06/30/2025 11:15:00 AM, [address], [address], Insurance Providers Payer Name Payer Address Payer Phone Subscriber Number Group Number Insured Name Patient Relationship to Insured Coverage Start Date Coverage End Date [place] [address] [place] [phone] [id number] Glenn Marti Self - patient is the insured MEDICAID EDS [address] [place] [address] [id number] Glenn Marti Self - patient is the insured [employer] [address] [place] [address] ACL Glenn Marti Self - patient is [...]
[2025-06-28] MEDS: DEXAMETHASONE 4MG/ML 5ML MDV 8 MG IV (11:06)
[2025-06-28 11:18] VITALS: BP 109/54; PULSE 84; RESP 18; O2SAT 99
[2025-06-28] MEDS: 0.9 % SODIUM CHLORIDE 500 ML IV (11:18)
[2025-06-28 12:25] VITALS: BP 105/69; PULSE 85; RESP 18; O2SAT 98
[2025-06-28 12:31] LABS: RBC Morphology Normal; Total Cells Counted 100
== END 2025-06-28 12:25 | disposition home or self-care (01) ==
LOC: INF 09:51
PROVIDERS: PCP Internal Medicine Adolescent Medicine; Visit Provider Internal Medicine Medical Oncology
DX: D46.9 Myelodysplastic syndrome, unspecified (principal)
CPT/HCPCS: 36415; 80053; 85007; 85025; J1100; J7040

== ENCOUNTER 2025-07-12 09:29 | Inpatient (IN) | payer MEDICARE, MEDICAID, SELFPAY ==
--- OUTSIDE RECORDS SUMMARY | 2025-01-15 17:30 | XMS_ITS ---
Author Organization [facility] Address [address] [place] [address] Care Team Providers Care Bag Shop Worker Name Role Phone Darian Brunner Primary Care Provider Migration, Provider Unavailable Unavailable REASON FOR VISIT [facility] Encounter Medications Medication SIG (Take, Route, [...] Hospital P[facility] [address] [facility] [address] [place] [address] 01/15/2025 Provider Migration Essential hypertension I10 and [...] Glenn MARTI BDOB:[birth year] (80 yo M)Acc No.[id number]:01/15/2025 Patient: Glenn GILMORE Provider: Caroline White :1945 A ge:79 Y S ex:Male Date:01/15/2025 Address:[facility] [address], [place], [id number] Pcp:Darian Brunner Subjective: * Chief Complaints: * 1 . [facility]. * Medical History: * [...] *Please review and pick correct strength-formulation from [facility] options. If intended option is not shown, [...] Electronic signature of Prov ider Migration on 07/12/2025 at 08:40 AM EDT Sign off status: Pending * Provider: Caroline cedeño Migration Date: 0 01/15/2025 Generated for Claudette hess/Vinicio/Janineitting on: 0 07/12/2025 08:40 AM EDT
--- OUTSIDE RECORDS SUMMARY | 2025-01-15 17:30 | XMS_ITS ---
Author Organization [facility] Address [address] [place] [address] Care Team Providers Care Homicide Squad Captain Name Role Phone Darian Brunner Primary Care Provider [phone] Migration, Provider Unavailable Unavailable REASON FOR VISIT [facility] Encounter Medications Medication [...] Active Encounters Encounter Location Date Provider Diagnosis [facility] [place] [address] [facility] [address] [place] [address] 01/15/2025 Provider Migration Essential hypertension I10 and [...] Glenn MARTI BDOB:[birth year] (80 yo M)Acc No.[id number]:01/15/2025 Patient: Glenn GILMORE Provider: Caroline White :1945 A ge:79 Y S ex:Male Date:01/15/2025 Address:[facility] [address], [place], [id number] Pcp:Darian Brunner Subjective: * Chief Complaints: * 1 . [facility] * Medical History: [...] *Please review and pick correct [facility]formulation [facility]. If intended option [...] Electronic signature of Prov ider Migration on 07/13/2025 at 03:47 PM EDT Sign off status: Pending * Provider: Caroline cedeño Migration Date: 0 01/15/2025 Generated for Claudette hess/Vinicio/Janineitting on: 1 03:47 PM EDT
--- OUTSIDE RECORDS SUMMARY | 2025-04-08 07:45 | XMS_ITS ---
Author Organization [facility] D [place] Address [address] [place] [address] Care Team Providers Care Exchange Specialist Name Role Phone Darian Brunner Primary Care Provider [phone] Lisa oJnes Unavailable [phone] REASON FOR VISIT med ck Encounters Encounter Location Date Provider Diagnosis [address] [address] 04/08/2025 Lisa Jones Plan Of Treatment No Information Progress Notes * Glenn MARTI BDOB:[birth year] (80 yo M)Acc No.[id number]:04/08/2025 Progress Notes Patient: Theresa PACKGlenn Provider: Theresa Jones APRN :1945 A ge:79 Y S ex:Male Date:04/08/2025 Address:[address] [id number] Pcp:Darian Brunner Subjective: * Chief Complaints: * 1 . Med ck. * Medical History: Objective: * Vitals: Assessment: Plan: * Treatment: * * Electronic signature of Leni Jones APRN on 07/12/2025 at 08:40 AM EDT Sign off status: Pending * Provider: Theresa Jones APRN Date: 0 04/08/2025 Generated for Printi ng/Faxing/eTransmitting on: 0 07/12/2025 08:40 AM EDT
--- OUTSIDE RECORDS SUMMARY | 2025-04-08 07:45 | XMS_ITS ---
Author Organization [facility] D [place] Address [address] [place] [address] Care Team Providers Care Blood Bank Worker Name Role Phone Darian Brunner Primary Care Provider Lisa Jones Unavailable [phone] REASON FOR VISIT med ck Encounters Encounter Location Date Provider Diagnosis [address] [address] 04/08/2025 Lisa Jones Plan Of Treatment No Information Progress Notes * Glenn MARTI BDOB:[birth year] (80 yo M)Acc No.[id number]:04/08/2025 Progress Notes Patient: Theresa PACKGlenn Provider: Theresa Jones APRN :1945 A ge:79 Y S ex:Male Date:04/08/2025 Address:[address] [id number] Pcp:Darian Brunner Subjective: * Chief Complaints: * 1 . Med ck. * Medical History: Objective: * Vitals: Assessment: Plan: * Treatment: * * Electronic signature of Leni Jones APRN on 07/13/2025 at 03:47 PM EDT Sign off status: Pending * Provider: Theresa Jones APRN Date: 0 04/08/2025 Generated for Printi ng/Faxing/eTransmitting on: 1 03:47 PM EDT
--- OUTSIDE RECORDS SUMMARY | 2025-06-16 08:15 | XMS_ITS ---
Author Organization [facility] Address [address] [place] [address] Care Team Providers Care Face Painter Name Role Phone Darian Brunner Primary Care Provider [phone] Allergies No Known Allergies REASON FOR VISIT in pain all over, breaking out on face, Due for Medicare AWV Medications Medication SIG (Take, Route, Frequency, Duration) Notes Start Date End Date Status Ventolin HFA 108 (90 Base) MCG/ACT 2 puff(s) inhaled 4 times a day PRN SOA; Duration: 90 days Active Cyclobenzaprine HCl 10 MG 1 tab(s) orally every 8 hrs as needed for back spasm; Duration: 90 days 06/18/2019 Active oxyCODONE-Acetaminophen 10-325 MG 1 tab(s) orally three times daily; Duration: 30 days 06/06/2025 Active Levocetirizine Dihydrochloride 5 MG 1 tab(s) orally once a day (in the evening); Duration: 90 days Active Procrit 3000 UNIT/ML as directed Injection Active Atorvastatin Calcium 40 MG 1 tab(s) orally once a day; Duration: 90 days Active Tamsulosin HCl 0.4 MG 2 caps orally once a day at bedtime; Duration: 90 days Active Meloxicam 15 MG 1 tab(s) orally once a day; Duration: 90 days Active Escitalopram Oxalate 20 MG 1 tab(s) orally once a day; Duration: 90 days Active Acyclovir 800 MG 1 tab(s) orally 3 times a day; Duration: 10 days Active busPIRone HCl 10 MG 1-1.5 tabs orally three times a day prn anxiety; Duration: 90 days Active Fluticasone Propionate 50 MCG/ACT 1 spray(s) in each nostril once a day; Duration: 90 days Active amLODIPine Besylate 5 MG 1 tab(s) orally once a day; Duration: 90 days Active Omeprazole Magnesium 20 MG 1 cap(s) orally once a day; Duration: 90 days Active ICaps AREDS Formula - as directed orally; Duration: 30 day(s) Active Selenium Sulfide 2.25 % 1 miguel a applied topically 2 times a week; Duration: 30 day(s) 08/20/2019 Active Propranolol HCl 10 MG 1 tab(s) orally 2 times a day; Duration: 30 days Active Breo Ellipta 100 MCG-25 MCG/INH 1 PUFF BY MOUTH ONCE DAILY DIRECTED; Duration: 90 DAYS *Please review and pick correct strength-formulati on from [employer] options. 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 Vital Signs Temperature 97.9 degrees Fahrenheit 06/16/20 25 Heart Rate 68 /min 06/16/2025 Blood pressure systolic 122 mm Hg 06/16/20 25 Blood pressure diastolic 68 mm Hg 025 Height 5 ft 8 in in 06/16/2025 Weight 230 lbs 06/16/2025 BMI 34.97 kg/m2 06/16/2025 Encounters Encounter Location Date Provider Diagnosis [facility] [address] [address] 06/16/2025 Darian Brunner Mechanical low back pain M54.59 ; Cancer related pain G89.3 ; Essential hypertension I10 ; ADELINE (generalized anxiety disorder) F41.1 ; MDS (myelodysplastic syndrome) D46.9 ; Routine medical exam Z00.00 and Immunization(s) administered Z23 Assessments Encounter Date Diagnosis (ICD Code) Assessment Notes Treatment Notes Treatment Clinical Notes Section Notes 06/16/2025 Mechanical low back pain (ICD-10 - M54.59) Long discussion about pain management. He has been taking his oxycodone intermittently, and occasionally does not take any tablets and then occasionally feels like he has to have 2 tablets. I discussed with him that ideally given his cancer related pain and chronic osteoarthritis and back pain it would be ideal to take the medicine on a scheduled basis and his will administer this every 8 hours. I discussed using meloxicam daily, he is still on this, kidney function has been normal, we will recheck this in 2 weeks. He will also take his muscle relaxers after supper to see if this will help him sleep better. Discussed possible pain management referral. He would rather see how this trial goes first 06/16/2025 Cancer related pain (ICD-10 - G89.3) See notes above about opioid pain management. No issues with dizziness, mental status changes or constipation 06/16/2025 Essential hypertension (ICD-10 - I10) Pressures are good control, no change in plans 06/16/2025 ADELINE (generalized anxiety disorder) (ICD-10 - F41.1) Comorbidity noted. Depression screening negative 06/16/2025 MDS (myelodysplastic syndrome) (ICD-10 - D46.9) Follows with hematology/oncolog y. On appropriate medication and follows with them on a regular basis 06/16/2025 Routine medical exam (ICD-10 - Z00.00) No recent falls. Functional status impaired as noted. Depression screening negative. Flu shot today. Aged out of other cancer screening. No recent smoking. 06/16/2025 Immunization(s) administered (ICD-10 - Z23) Plan Of Treatment Treatment Notes Assessment Notes Mechanical low back pain Long discussion about pain management. He has been taking his oxycodone intermittently, and occasionally does not take any tablets and then occasionally feels like he has to have 2 tablets. I discussed with him that ideally given his cancer related pain and chronic osteoarthritis and back pain it would be ideal to take the medicine on a scheduled basis and his will administer this every 8 hours. I discussed using meloxicam daily, he is still on this, kidney function has been normal, we will recheck this in 2 weeks. He will also take his muscle relaxers after supper to see if this will help him sleep better. Discussed possible pain management referral. He would rather see how this trial goes first Cancer related pain See notes above abou t opioid pain management. No issues with dizziness, mental status changes or constipation Essential hypertension Pressures are goo d control, no change in plans ADELINE (generalized anxiety disorder) Comor bidity noted. Depression screening negative MDS (myelodysplastic syndrome) Follows with hematology/oncology. On appropriate medication and follows with them on a regular basis Routine medical exam No recent falls. Functional status impaired as noted. Depression screening negative. Flu shot today. Aged out of other cancer screening. No recent smoking. Next Appt Details Follow Up: prn,2 Weeks, Reas on: Progress Notes * Glenn MARTI BDOB:[birth year] (80 yo M)Acc No.[id number]:06/16/2025 Progress Notes Patient: Glenn GILMORE Provider: Rossy Brunner MD :1945 A ge:80 Y S ex:Male Date:06/16/2025 Address:[address] [place] [address] , [facility], [id number] Subjective: * Chief Complaints: * 1 . In pain all over. 2. Breaking out on face. 3. Due for Medicare AWV. * HPI: g en: Gen [age]yo male comes in for wellness exam. Pt also has complaints of pain all over (rated as a 10/10) and a rash on his face. Pt has a history of multi-joint arthritis. Pt is currently prescribed Percocet 10mg up to three times daily for pain. Pt's female partner is present for additional history. Pt has been taking medication as needed for the pain and reports taking one 10mg tablet on average for pain. Pt also reports taking Cyclobenzaprine for muscle spasms. Pt explained that his back pain has been worsening and is hindering his activities. Pt has also been experiencing mild tachycardia when performing activities and stated he gets winded more easily now . Pt denies any chest pain, palpitations, or dyspnea at rest. Pt explains he cannot move too fast or I get winded . Pt denies any recent falls or injuries. Pt wanted to discuss pain management options today. Today, pt also complains of a rash on his face that has been present for the past few weeks. Pt denies any known irritant exposure and describes the rash as extremely itchy. Pt reports applying an ointment for eczema once with mild relief. Pt denies any changes to his bowel or bladder habits. Pt stated he consumes a relatively balanced diet and is well hydrated. P t was evaluated for fall risk and explained he has slowed his pace down to avoid falls, has no difficulty getting up in the nigh to use the restroom, and will sit down if he experiences sharp back pain. Pt does have a living will in place and has his female partner as his medical decision maker. Pt was asked to recall 3 words at the start of the appointment - dog, yellow, tractor. Pt was able to recall these words with minimal difficulty. Pt has no other concerns today.. * Medical History: B PH, Renal stones, Former smoker, ETOh abuse, Dupytren's contracture bilat palms, Seborrheic dermatitis, HTN, HLD, Anxiety, Spermatocele, bilat. * Surgical History: D enies Past Surgical History. * Hospitalization/Major Diagno stic Procedure: jared ruiz , Cancer- [facility] . * Family History: F ather: . [...] orally 2 times a day , Taking Breo Ellipta 100 MCG-25 MCG/INH POWDER 1 PUFF BY MOUTH ONCE DAILY DIRECTED , Notes to Pharmacist: *Please review and pick correct strength-formulation from [employer] options. If intended option is not shown, discontinue and re-order from Quick Search*, Taking Acyclovir 800 MG Tablet 1 tab(s) orally 3 times a day , Taking busPIRone HCl 10 MG Tablet 1-1.5 tabs orally three times a day prn anxiety , Taking Fluticasone Propionate 50 MCG/ACT Suspension 1 spray(s) in each nostril once a day , Taking amLODIPine Besylate 5 MG Tablet [...] tab(s) orally once a day , Taking Tamsulosin HCl 0.4 MG Capsule 2 caps orally once a day at bedtime , Taking Levocetirizine Dihydrochloride 5 MG Tablet 1 tab(s) orally once a day (in the evening) , Taking Ventolin HFA 108 (90 Base) MCG/ACT Aerosol Solution 2 puff(s) inhaled 4 times a day PRN SOA , Taking Cyclobenzaprine HCl 10 MG Tablet 1 tab(s) orally every 8 hrs as needed for back spasm , Taking oxyCODONE-Acetaminophen 10-325 MG Tablet 1 tab(s) orally three times daily , Discontinued Amoxicillin 875 MG Tablet 1 tablet Orally Twice a day , Medication List reviewed and reconciled with the patient * Allergies: N .K.D.A. Objective: * Vitals: N urse: dw, Pain: 10, Temp: 97.9, RR: 20, HR: 68, BP: 122/68, Ht: 5 ft 8 in, Wt: 230, BMI:34.97. * Examination: G eneral Examination: General P leasant and Cooperative, NAD on RA,. Heart: R egular Rate and Rhythm, no murmur, rubs or gallops. Lungs: L CTAB, No wheezes, crackles or rhonchi, Good air movement,. Abdomen: S oft, NTND, BSNA, No organomegaly or peritoneal signs.. Skin: E czematous rash on the left nasolabial fold. Peripheral pulses: n ormal (2+) bilaterally. General Appearance: N AD, pleasant. Assessment: * Assessment: 1. M echanical low back pain - M54.59 (Primary) 2 . C ancer related pain - G89.3 3 . E ssential hypertension - I10 4 . G AD (generalized anxiety disorder) - F41.1 5 . M DS (myelodysplastic syndrome) - D46.9 & #160; 6 . R outine medical exam - Z00.00 7 . I mmunization(s) administered - Z23 Plan: * Treatment: 2. C ancer related pain Notes: See notes above about opioid pain management. No issues with dizziness, mental status changes or constipation 3. E ssential hypertension Notes: Pressures are good control, no change in plans 4. G AD (generalized anxiety disorder) Notes: Comorbidity noted. Depression screening negative 5. M DS (myelodysplastic syndrome) Notes: Follows with hematology/oncology. On appropriate medication and follows with them on a regular basis 6. R outine medical exam Notes: No recent falls. Functional status impaired as noted. Depression screening negative. Flu shot today. Aged out of other cancer screening. No recent smoking. * Immunizations: Fluzone High Dose : 0.7 mL (Route: Intramuscular) given by EMILIANO Lopez on Left Deltoid (Immunization(s) administered) * Procedure Codes: 9 0662 Influenza High Dose Vaccine >65 Years Old, Units: 1.40 , G0008 ADMINISTRATION-FLU VACCINE MEDICARE ONLY, G0439 ANNUAL WELLNESS VST; PPS SUBSQT VST, 1170F FUNCTIONAL STATUS ASSESSMENT, G2211 Complex e/m visit add on, 1123F ADVANCED DIRECTIVE - HAS A LIVING WILL, G8420 BMI documented as normal, no follow up required., G8510 NEGATIVE SCREENING F/U NOT REQUIRED, G9903 Pt scrn tbco id as non user, 1036F TOBACCO NON-USER, G8752 Most recent systolic blood pressure < 140mmhg, G8754 Most recent diastolic blood pressure < 90mmhg, G9744 PATIENT NOT ELIG D/T ACTIVE DX HTN * Follow Up: p rn,2 Weeks * * Sign off status: Completed true * Provider: Rossy Brunner MD Date: 0 06/16/2025 Generated for Printi ng/Fadavidg/eTransmitting on: 1 03:47 PM EDT History and Physical Notes * HPI (History of Present Illness) Category Sub-Category Detail Notes Category Not es gen Gen 80yo male comes in for wellness exam. Pt also has complaints of pain all over (rated as a 10/10) and a rash on his face. Pt has a history of multi-joint arthritis. Pt is currently prescribed Percocet 10mg up to three times daily for pain. Pt's female partner is present for additional history. Pt has been taking medication as needed for the pain and reports taking one 10mg tablet on average for pain. Pt also reports taking Cyclobenzaprine for muscle spasms. Pt explained that his back pain has been worsening and is hindering his activities. Pt has also been experiencing mild tachycardia when performing activities and stated he gets winded more easily now . Pt denies any chest pain, palpitations, or dyspnea at rest. Pt explains he cannot move too fast or I get winded . Pt denies any recent falls or injuries. Pt wanted to discuss pain management options today. Today, pt also complains of a rash on his face that has been present for the past few weeks. Pt denies any known irritant exposure and describes the rash as extremely itchy. Pt reports applying an ointment for eczema once with mild relief. Pt denies any changes to his bowel or bladder habits. Pt stated he consumes a relatively balanced diet and is well hydrated. Pt was evaluated for fall risk and explained he has slowed his pace down to avoid falls, has no difficulty getting up in the nigh to use the restroom, and will sit down if he experiences sharp back pain. Pt does have a living will in place and has his female partner as his medical decision maker. Pt was asked to recall 3 words at the start of the appointment - dog, yellow, tractor. Pt was able to recall these words with minimal difficulty. Pt has no other concerns today. Examination Category Sub-Category Detail Notes Category Not es General Examination Heart: Regular Rate and Rhythm, no murmur, rubs or gallops Lungs: LCTAB, No wheezes, c rackles or rhonchi, Good air movement, Abdomen: Soft, NTND, BSNA, No organomegaly or peritoneal signs. General Appearance: NAD, pleasant Skin: Eczematous rash on t he left nasolabial fold Peripheral pulses: normal (2+) bilatera lly General Pleasant and Coopera tive, NAD on RA,
--- OUTSIDE RECORDS SUMMARY | 2025-06-16 08:15 | XMS_ITS ---
Author Organization [facility] Address [address] [place] [address] Care Team Providers Care Underwriting Director Name Role Phone Darian Brunner Primary Care Provider [phone] Allergies No Known Allergies REASON FOR VISIT [...] review and pick correct strength-formulati on from [employer] options. If intended option is not shown, [...] 06/16/2025 Encounters Encounter Location Date Provider Diagnosis [facility] [address] [address] 06/16/2025 Darian Brunner Mechanical low back pain [...] Glenn MARTI BDOB:[birth year] (80 yo M)Acc No.[id number]:06/16/2025 Progress Notes Patient: Glenn GILMORE Provider: Rossy Brunner MD :1945 A ge:80 Y S ex:Male Date:06/16/2025 Address:[address] [place] [address] , [facility], [id number] Subjective: * Chief Complaints: * 1 . [...] Diagno stic Procedure: jared ruiz , Cancer- [facility] . * Family History: F ather: [...] true * Provider: Rossy Brunner MD Date: 06/16/2025 Generated for Printi ng/Fadavidg/eTransmitting on: 07/12/2025 08:39 AM EDT History and Physical Notes * [...]
--- OUTSIDE RECORDS SUMMARY | 2025-06-30 07:15 | XMS_ITS ---
Author Organization [facility] PE D CATARINA Address [address] [place] [address] Care Team Providers Care Roller Setter Name Role Phone Darian Brunner Primary Care Provider REASON FOR VISIT 2 weeks, ED FU d/c 06/22/2025 Encounters Encounter Location Date Provider Diagnosis [address] [address] 06/30/2025 Darian Brunner Plan Of Treatment No Information Progress Notes * Glenn MARTI BDOB:[birth year] (80 yo M)Acc No.[id number]:06/30/2025 Progress Notes Patient: Glenn GILMORE Lucie Provider: Rossy Brunner MD :1945 A ge:80 Y S ex:Male Date:06/30/2025 Address:[facility] [id number] Subjective: * Chief Complaints: * 1 . 2 weeks, ED FU d/c 06/22/2025. * Medical History: Objective: * Vitals: Assessment: Plan: * Treatment: * * Electronic signature of Vasyl Brunner MD FAAP on 07/12/2025 at 08:39 AM EDT Sign off status: Pending * Provider: Rossy Brunner MD Date: 06/30/2025 Generated for Printi ng/Faxing/eTransmitting on: 07/12/2025 08:39 AM EDT
--- OUTSIDE RECORDS SUMMARY | 2025-06-30 07:15 | XMS_ITS ---
Author Organization [facility] PE D CATAR[place] Address [address] [place] [address] Care Team Providers Care Physics Technician Name Role Phone Darian Brunner Primary Care Provider REASON FOR VISIT 2 weeks, ED FU d/c 06/22/2025 Encounters Encounter Location Date Provider Diagnosis [address] [address] 06/30/2025 Darian Brunner Plan Of Treatment No Information Progress Notes * Glenn MARTI BDOB:[birth year] (80 yo M)Acc No.[id number]:06/30/2025 Progress Notes Patient: Glenn GILMORE Lucie Provider: Rossy Brunner MD :1945 A ge:80 Y S ex:Male Date:06/30/2025 Address:[facility] [address], [place], [id number] Subjective: * Chief Complaints: * 1 . 2 weeks, ED FU d/c 06/22/2025. * Medical History: Objective: * Vitals: Assessment: Plan: * Treatment: * * Electronic signature of Vasyl Brunner MD FAAP on 07/13/2025 at 03:47 PM EDT Sign off status: Pending * Provider: Rossy Brunner MD Date: 0 06/30/2025 Generated for Printi ng/Faxing/eTransmitting on: 1 03:47 PM EDT
[2025-07-12] VITALS (25 sets, daily range): BP systolic 110–156; BP diastolic 59–78; PULSE 79–98; RESP 16–20; TEMP 36.2–37; O2SAT 93–99; BMI 25.4; BMI 30.1
--- OUTSIDE RECORDS SUMMARY | 2025-07-12 08:40 | XMS_ITS | Patient Health Record ---
Author Organization [facility] Address [address] [facility] [address] [place] [address] Care Team Providers Care Marine Pipefitter Name Role Phone Darian Brunner Primary Care Provider [phone] Gemzainab Lisa Unavailable [phone] Migration, Provider Unavailable Unavailable Allergies No Known [...] orally three times daily; Duration: 30 days 07/07/2025 Active Omeprazole Magnesium 20 MG 1 cap(s) [...] Fluzone High Dose IM Intramuscular 06/16/2025 Administered Pneumovax 23 IM Intramuscular 04/30/2019 Administered [...] Status Risk Notes Problem Paroxysmal atrial fibrillation (239400674) Paroxysmal atrial fibrillation (I48.0) Active confirmed Problem Essential hypertension (54063980) Essential hypertension (I10) Active confirmed Problem 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, 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) Active confirmed Problem COPD - Chronic obstructive pulmonary disease (96322436) Chronic obstructive pulmonary disease, unspecified COPD type (J44.9) Active confirmed Problem Obese class II (269921338075073) BMI 37.0-37.9, adult (Z68.37) Active confirmed Problem Essential tremor (809401649) Benign essential tremor (G25.0) Active confirmed Problem Generalized anxiety disorder (97090062) ADELINE (generalized anxiety disorder) (F41.1) Active confirmed Problem Lower urinary tract symptoms due to benign prostatic hypertrophy (30665241632184) Benign prostatic hyperplasia with lower urinary tract symptoms, unspecified morphology (N40.1) Active confirmed Problem Contracture of palmar fascia (023628745) Dupuytren's contracture of both hands (M72.0) Active confirmed Problem Pain due to neoplastic disease (19892122560355) 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) Active confirmed Problem Myelodysplastic syndrome (046157537) 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) Active confirmed Vital Signs Heart Rate 68 /min 06/16/2025 Temperature 97.9 degrees Fahrenheit 06/16/2025 Blood pressure diastolic 68 mm Hg 06/16/2025 Height 5 ft 8 in in 06/16/2025 Blood pressure systolic 122 mm Hg 06/16/2025 Weight 230 lbs 06/16/2025 BMI 34.97 kg/m2 06/16/2025 Encounters Encounter Location Date Provider Diagnosis [place] [facility] CAT[place] [address] [place] [address] 01/15/2025 Provider Migration Essential hypertension I10 and ADELINE (generalized anxiety disorder) F41.1 [place] [facility] [address] [address] 07/13/2024 Darian Besnelson Cancer related pain G89.3 ; Essential hypertension I10 ; Immunization(s) administered Z23 and Encounter for immunization Z[facility] [address] [address] 12/31/2024 Lisa McNees Paroxysmal atrial fibrillation I48.0 [...] E78.2 and Arthritis, multiple joint involvement M12.[address] [place] [address] [address] 04/12/2025 Darian Besson Acute non-recurrent maxillary sinusitis J01.00 ; Mixed hyperlipidemia E78.2 ; Essential (primary) hypertension I10 and MDS (myelodysplastic syndrome) D46.[address] [place] [address] [address] 06/16/2025 Darian Krystleson Mechanical low back pain M54.59 ; Cancer related pain G89.3 ; Essential hypertension I10 ; ADELINE (generalized anxiety disorder) F41.1 ; MDS (myelodysplastic syndrome) D46.9 ; Routine medical exam Z00.00 and Immunization(s) administered Z23 [facility] [address] [address] 07/19/2024 Darian Besson [place] [address] [address] 08/02/2024 Darian Besson Cancer related pain G89.[address] [place] [address] [address] 08/09/2024 Darian Besson [facility] [address] [place] [address] 09/02/2024 Darian Besson Cancer related pain G89.3 [facility] [address] [place] [address] 10/04/2024 Darian Besson Cancer related pain G89.3 [facility] [address] [place] [address] 10/11/2024 Darian Besson Seasonal allergies J30.2 [facility] [address] [place] [address] 12/17/2024 Darian Besson ADELINE (generalized anxiety disorder) F41.1 [facility] [address] [place] [address] 12/31/2024 Lisa McNees Essential hypertensi on I10 [facility] [address] [place] [address] 12/31/2024 Darian Besson [facility] [address] [place] [address] 01/25/2025 Darian Besson Cancer related pain G89.3 [facility] [address] [place] [address] 02/25/2025 Darian Besson [facility] [address] [place] [address] 03/02/2025 Darian Besson Cancer related pain G89.3 [facility] [address] [place] [address] 04/04/2025 Darian Besson Cancer related pain G89.3 [facility] [address] [place] [address] 04/05/2025 Darian Besson Cancer related pain G89.3 [facility] [address] [place] [address] 04/13/2025 Darian Besson [facility] [address] [place] [address] 05/04/2025 Darian Besson [facility] [address] [place] [address] 05/05/2025 Darian Besson Cancer related pain G89.3 [facility] [address] [place], [place] [address] 06/06/2025 Darian Besson Cancer related pain G89.3 [facility] [address] [place] [address] 06/23/2025 Darian Besson [facility] [address] [facility] [address] [place] [address] 07/07/2025 Darian Besnelson Cancer related pain G89.3 Assessments Encounter Date Diagnosis (ICD Code) Assessment Notes Treatment Notes Treatment Clinical Notes Section Notes 07/13/2024 Essential hypertension (ICD-10 - I10) - [...] rather see how this trial goes first 07/07/2025 Cancer related pain (ICD-10 - G89.3) 06/16/2025 Essential hypertension (ICD-10 - I10) Pressures [...] [place] [address] [place] [place] [address] [id number] Glenn Marti Self - patient is the insured MEDICAID EDS [address] [place] [id number] Glenn Marti Self - patient is the insured [employer] [address] [place] [address] ACL Glenn Marti Self - patient is [...]
--- NOTE | 2025-07-12 08:47 | PC.NURSE ---
0840-pt presents for labs prior to md appt. Venipuncture performed to pt's lt ac x 1 stick using a butterfly access needle-blood drawn for labs as ordered. Needle withdrawn and site secured with 2x2 gauze and coban. Lab specimen sent to lab for analysis.
[2025-07-12 08:56] LABS: Immature Granulocytes % 1.7 %; Mean Corpuscular HGB Conc 31.1 g/dL (31.8-35.4); Mean Corpuscular Hemoglobin 32.2 pg (27.0-31.2); Mean Corpuscular Volume 103.5 fl (80-94); Nucleated Red Blood Cells % 0 %; Red Blood Count 2.02 M/mm3 (4.60-6.20)
[2025-07-12 08:57] LABS: Hemoglobin 6.5 g/dL (14.1-18.0)
[2025-07-12 08:59] LABS: Hematocrit 20.9 % (42.0-52.0); Platelet Count 16 K/mm3 (142-424); White Blood Count 1.8 K/mm3 (4.8-10.8)
[2025-07-12 09:00] LABS: Alanine Aminotransferase 20 U/L (12-78); Albumin Level 3.5 g/dl (3.5-5.0); Albumin/Globulin Ratio 1.1 (1.1-1.8); Alkaline Phosphatase 210 U/L (38-126); Anion Gap 13.3 mEq/L (5-15); Aspartate Amino Transferase 23 U/L (17-59); Bilirubin,Total 0.7 mg/dl (0.2-1.3); Blood Urea Nitrogen 26 mg/dl (9-20); Calcium 9.1 mg/dl (8.4-10.2); Carbon Dioxide 23 mmol/L (22.0-30.0); Chloride 106 mmol/L (98-107); Creatinine Clearance Estimated 59 mL/min (50-200); Creatinine,Serum 1.40 mg/dl (0.66-1.25); Estimated Glomerular Filt Rate 49 ml/min (>60); GFR (African American) 59 ML/MIN (>60); Globulin 3.2 g/dL (1.3-3.2); Glucose 116 mg/dl (74-100); Potassium 4.3 mmoL/L (3.5-5.1); Sodium 138 mmol/L (136-145); Total Protein,Serum 6.7 g/dl (6.3-8.2)
[2025-07-12 09:36] LABS: Macrocytosis 1+; Total Cells Counted 100
[2025-07-12 09:38] LABS: Polychromasia 1+
--- NOTE | 2025-07-12 09:49 | XR_ITS ---
FINAL REPORT TECHNIQUE: Chest PA & Lateral CLINICAL HISTORY: cough possible pneumonia hx of cancer COMPARISON: 06/22/2025 FINDINGS: 2 views of the chest were performed. The heart size is normal. The lungs are hyperinflated. There is flattening of the hemidiaphragm. Moderate changes of obstructive airways disease are noted. There is no acute infiltrate. There are no pleural effusions. There is no pneumothorax. The bony thorax appears intact. IMPRESSION: Hyperinflated lungs with moderate chronic changes. Reviewed, Interpreted and Dictated by Shemar Rees MD Transcribed by Fern Flores Authenticated and [facility]
--- NOTE | 2025-07-12 10:01 | EXP.HP ---
History of Present Illness *Admission Date: 07/12/25 *Reason for visit:: cough, anemia, neutropenia *History of present illness: Mr. Marti is an 80-year-old male with history of myelodysplastic syndrome. Follows with oncology at [facility]. Presented for routine follow-up today and was found to be anemic. Struggles with pancytopenia due to his chemotherapy and myelodysplastic syndrome. White count remains low including A1c less than thousand. Reports that he has had a cough that is mildly productive. At home states that he has had a low-grade fever of approximately 100. No nay fever greater than 100.4. Hemoglobin 6.5. Platelet count 16,000. Given his abnormalities, medicine was consulted for admission and empiric antibiotics along with further workup for possible neutropenic fever. On arrival to the floor, patient stable on room air. Has a mild cough that is intermittently productive for thick yellow sputum. Denies chest pain, nausea, shortness of breath. Temperature normal at 98 on admission. [facility] Disclaimer: The information contained in this section may have been updated after the patient was seen, as this information can be updated by other users. Medical History SOB (shortness of breath) Tricuspid regurgitation Aortic regurgitation Vomiting Neutropenia with fever Constipation Febrile illness Encounter for pre-operative cardiovascular clearance New onset atrial fibrillation Abnormal electrocardiogram [ECG] [EKG] Palpitations Dyspnea Atypical chest pain Spermatocele Muscle spasm Acute exacerbation of chronic low back pain Contusion of left ankle Abrasion, left ankle, initial encounter Abnormal findings on diagnostic imaging of heart and coronary circulation History of compression fracture of spine DJD (degenerative joint disease) Chronic back pain MDS (myelodysplastic syndrome) Anxiety BPH (benign prostatic hyperplasia) Kidney stones GERD (gastroesophageal reflux disease) Atrial fibrillation History of hoarseness History of chemotherapy Hypertension Hyperlipidemia Heart murmur Cancer Surgical History History of bone marrow biopsy Family History Other Asthma Cancer Heart attack Stroke Social History Smoking Status: Never smoker alcohol intake: current alcohol intake frequency: 3 or more drinks per day substance use type: denies use current occupational status: retired Travel in the last 8 weeks?: None household members: significant other housing: house current occupational exposures/hazards: No caffeine: Yes Have you lived/traveled outside [place] in past 30 days?: No Contact w/someone who lives/traveled outside US past 30 days?: No Exposure to someone with infectious disease in past 14 days?: No Do you have a fever (greater than 100.4 F or 38 C)?: No Have you tested positive for COVID-19?: No Exposed to someone with COVID-19 in past 14 days?: No Do you have a sore throat?: No Do you have a cough?: No Do you have any weakness?: No Are you experiencing any nausea/vomitting?: No Do you have any diarrhea?: No Are you experiencing any unusual bleeding?: No Do you have any muscle aches/pain?: No Do you have any abdominal pain?: No Are you experiencing loss of taste or smell?: No Other Medical History Have you received the Flu Vaccine for this season: No Have you received the Pneumonia Vaccine: Yes Review of Systems Review of Systems Review of systems (narrative): 14 point review of systems performed, pertinent positives and negatives as per HPI Meds Home Medications and Allergies Home Medications ?Medication ?Instructions ?Recorded ?Confirmed ?Type tamsulosin 0.4 mg capsule (Flomax) 0.8 mg PO HS 07/30/18 07/12/25 History escitalopram oxalate 20 mg tablet 20 mg PO DAILY 03/28/23 07/12/25 History buspirone 10 mg tablet 10 mg PO QIDP PRN Anxiety 08/14/23 07/12/25 History omeprazole 20 mg capsule,delayed 20 mg PO DAILY 4 weeks #28 caps 01/15/24 07/12/25 Rx release levocetirizine 5 mg tablet 5 mg PO DAILY 06/15/24 07/12/25 History oxycodone-acetaminophen 10 mg-325 1 tab PO Q8HP PRN Moderate Pain 09/02/24 07/12/25 History mg tablet (Scale Score 5-6) meloxicam 15 mg tablet 15 mg PO DAILY 03/08/25 07/12/25 History amlodipine 5 mg tablet 5 mg PO DAILY 07/12/25 07/12/25 History cyclobenzaprine 10 mg tablet 10 mg PO TID PRN Spasms 07/12/25 07/12/25 History valacyclovir 500 mg tablet 500 mg PO BID 07/12/25 07/12/25 History New Prescriptions to Start Prescriptions: Allergies Allergy/AdvReac Type Severity Reaction Status Date / Time No Known Allergies Allergy Verified 07/12/25 09:03 Exam Data for Last 24 hours Vital signs and Labs for Last 24 Hours: Laboratory Results - last 24 hr 07/12/25 08:40: WBC 1.8 L*, RBC 2.02 L, Hgb 6.5 L*, Hct 20.9 L*, MCV 103.5 H, MCH 32.2 H, MCHC 31.1 L, RDW TNP, Plt Count 16 L*, MPV TNP, Neut % (Auto) 45.2, Lymph % (Auto) 35.4, [place] % (Auto) 12.7 H, Eos % (Auto) 5.0, Baso % (Auto) 0.0 L, Neut # (Auto) 0.8 L*, Lymph # (Auto) 0.6 L, [place] # (Auto) 0.2, Eos # (Auto) 0.1, Baso # (Auto) 0.0, Total Counted 100, Neutrophils % (Manual) 50, Lymphocytes % (Manual) 39, Monocytes % (Manual) 10 H, Eosinophils % (Manual) 1, Platelet Estimate Marked decrease, Polychromasia 1+, Macrocytosis 1+, Sodium 138, Potassium 4.3, Chloride 106, Carbon Dioxide 23, Anion Gap 13.3, BUN 26 H, Creatinine 1.40 H, Estimated Creat Clear 59, Estimated GFR 49 L, Est GFR ( Amer) 59, Glucose 116 H, Calcium 9.1, Total Bilirubin 0.7, AST 23, ALT 20, Alkaline Phosphatase 210 H, Total Protein 6.7, Albumin 3.5, Globulin 3.2, Albumin/Globulin Ratio 1.1 I & O for Last 24 hours: Intake & Output 07/09/25 07/10/25 07/11/25 07/12/25 23:59 23:59 23:59 23:59 Weight 99.79 kg Constitutional Constitutional: no acute distress, obese, chronically ill appearing and cooperative *Routine HEENT Exam Head: Present normocephalic Eye: Present EOMI and PERRL ENT: Present mucous membranes moist *Routine Neck Exam Neck: Present supple; Absent lymphadenopathy *Routine Respiratory Exam Respiratory: Present prolonged expiratory phase and rhonchi; Absent wheezes or crackles *Routine Cardiovascular Exam Cardiovascular: Present RRR *Routine Abdominal Exam Abdominal: Present soft and normoactive bowel sounds; Absent tenderness *Routine Rectal Exam Rectal:: deferred *Routine Genitalia Exam Genitalia:: deferred *Routine Extremities Exam Extremities: Absent cyanosis, clubbing or edema *Routine Skin Exam Skin: Present intact and warm; Absent rash *Routine Neurological Exam Neurological: Present alert, oriented X3 and moving all extremities; Absent altered mental status Assessment and Plan *Assessment and plan (1) Myelodysplastic syndrome: Status: Acute Category: Medical Code(s): D46.9 - Myelodysplastic syndrome, unspecified (2) Cough productive of purulent sputum: Status: Acute Category: Medical Code(s): R05.8 - Other specified cough (3) Hypertension: Status: Chronic Qualifiers: Hypertension type: unspecified Qualified Code(s): I10 - Essential (primary) hypertension Category: Medical Code(s): I10 - Essential (primary) hypertension (4) Leukopenia: Status: Acute Qualifiers: Leukopenia type: unspecified Qualified Code(s): D72.819 - Decreased white blood cell count, unspecified Category: Medical Code(s): D72.819 - Decreased white blood cell count, unspecified (5) Thrombocytopenia: Status: Acute Category: Medical Code(s): D69.6 - Thrombocytopenia, unspecified (6) Anemia: Status: Acute Category: Medical Code(s): D64.9 - Anemia, unspecified (7) Neutropenia: Status: Acute Category: Medical Code(s): D70.9 - Neutropenia, unspecified (8) Obesity (BMI 30.0-34.9): Status: Chronic Category: Medical Code(s): E66.811 - Obesity, class 1 (9) BPH (benign prostatic hyperplasia): Status: Chronic Category: Medical Code(s): N40.0 - Benign prostatic hyperplasia without lower urinary tract symptoms Plan 8-year-old male who presented as direct admit from oncology clinic due to concern for suspected neutropenic fever and productive cough. Discussed case with oncology, request admission given patient's neutropenia (A1c of 800), recurrent anemia necessitating transfusion, and possible infection. I agreed to admit for further care. Cultures obtained and empiric antibiotics initiated. Anticipate admission for at least 2 midnights while we await culture results. Problems addressed as follows: Productive cough Neutropenia Myelodysplastic syndrome Fevers at home -Initiate broad-spectrum antibiotics with cefepime 2 g every 12 hours and azithromycin 500 mg daily. Sputum and blood cultures obtained. Will monitor cultures for at least 48 hours prior to de-escalation or narrowing of antibiotics. - DuoNebs every 6 hours as needed for cough or shortness of breath - Chest x-ray obtained, on my personal review there is no focal consolidation. - CBC, CMP, magnesium ordered for the morning - Labs obtained prior to admission with white count of 1.8, absolute neutrophil count of 800. - Kidney function at baseline but abnormal with BUN 26, creatinine 1.4. - Comprehensive respiratory panel obtained, negative for analytes Acute on chronic anemia secondary to myelodysplastic syndrome and medication effect: Thrombocytopenia: - Hemoglobin 6.5, platelets 16k - Transfuse 1 unit packed red blood cells. Second unit available if hemoglobin does not improve above 7. Threshold less than 7. -Holding anticoagulation due to risk for bleeding with thrombocytopenia. Will transfuse if develops signs of bleeding or platelets drop below 10 Depression and anxiety: Continue BuSpar 10 mg 4 times a day as needed, Lexapro 20 mg daily. BPH: Continue tamsulosin 0.8 mg nightly Blood pressure normal at time of admission. Will hold pain at this time and reevaluate in the morning PPI for GERD Resume prophylactic valacyclovir 500 mg twice daily Obesity complicates all aspects of his care full code cardiac diet VTE contraindicated due to thrombocytopenia, will use SCDs
--- NOTE | 2025-07-12 11:54 | PC.NURSE ---
Oxycodone returned to significant other to take home, other home meds have been placed in the omni
[2025-07-12] MEDS: CEFEPIME HCL 2 GM in 0.9 % SODIUM CHLORIDE 100 ML IV ×2 (12:29→22:56)
[2025-07-12] MEDS: AZITHROMYCIN 500 MG in 0.9 % SODIUM CHLORIDE 250 ML 250 MG IV (13:03)
[2025-07-12 14:54] LABS: Adenovirus,PCR Not Detected (NotDetected); Chlamydophila Pneumoniae, PCR Not Detected (NotDetected); Coronavirus 19, PCR Not Detected (NotDetected); Coronovirus HKU1,PCR Not Detected (NotDetected); Influenza A, PCR Not Detected (NotDetected); Influenza AH1, 2009 Not Detected (NotDetected); Influenza AH1, PCR Not Detected (NotDetected); Influenza AH3,PCR Not Detected (NotDetected); Influenza B, PCR Not Detected (NotDetected); Mycoplasma Pneumoniae, PCR Not Detected (NotDetected); Parainfluenza 1, PCR Not Detected (NotDetected); Parainfluenza 2, PCR Not Detected (NotDetected); Parainfluenza 3, PCR Not Detected (NotDetected); Parainfluenza 4, PCR Not Detected (NotDetected)
[2025-07-12] MEDS: IPRATROPIUM/ALBUTEROL 3 ML NEB IH ×2 (19:17→23:30)
[2025-07-12 19:22] LABS: Hematocrit 21.4 % (42.0-52.0); Hemoglobin 7.0 g/dL (14.1-18.0)
[2025-07-12] MEDS: PANTOPRAZOLE 40MG TABLET 40 MG PO (20:18)
[2025-07-12] MEDS: BUSPIRONE HCL 10 MG TABLET PO (20:19)
[2025-07-12] MEDS: TAMSULOSIN 0.4MG CAPSULE 0.8 MG PO (20:19)
[2025-07-12] MEDS: PHENOL THROAT SPRAY 177 ML BOTTLE MM (22:32)
[2025-07-12] MEDS: 0.9 % SODIUM CHLORIDE 250 ML 25 ML IV (22:57)
[2025-07-13] VITALS (7 sets, daily range): BP systolic 119–135; BP diastolic 49–64; PULSE 81–99; RESP 18; TEMP 36.6–36.9; O2SAT 95–98; BMI 31.6
[2025-07-13 00:38] LABS: Hematocrit 22.5 % (42.0-52.0); Hemoglobin 7.5 g/dL (14.1-18.0)
--- NOTE | 2025-07-13 03:45 | PC.NURSE ---
Pt A&OX4 and has tolerated room air. Pt received 1 unit of blood this shift with no complications. He did complain of a sore throat and was medicated per MAR. No other complaints at this time, call light within reach.
[2025-07-13 06:03] LABS: Hematocrit 23.5 % (42.0-52.0); Hemoglobin 7.5 g/dL (14.1-18.0); Immature Granulocytes % 4.0 %; Mean Corpuscular HGB Conc 31.9 g/dL (31.8-35.4); Mean Corpuscular Hemoglobin 30.2 pg (27.0-31.2); Mean Corpuscular Volume 94.8 fl (80-94); Nucleated Red Blood Cells % 0 %; Red Blood Count 2.48 M/mm3 (4.60-6.20); Red Cell Distribution Width-SD 86.3 fL; White Blood Count 2.0 K/mm3 (4.8-10.8)
[2025-07-13 06:07] LABS: Platelet Count 13 K/mm3 (142-424)
[2025-07-13] MEDS: IPRATROPIUM/ALBUTEROL 3 ML NEB IH ×3 (06:08→18:40)
[2025-07-13 07:16] LABS: RBC Morphology Normal; Total Cells Counted 100
--- NOTE | 2025-07-13 07:37 | EXP.ACUTE.PN ---
Subjective *Date: 07/13/25 *Time: 09:45 Interval history: Patient stable on room air the morning. No active signs of bleeding. Denies chest pain or shortness of breath. Coughing improving. Feels he is coughed up most of his mucus. Afebrile. Medical Exam Vital signs and Labs for Last 24 Hours: Vital Signs Temp Pulse Pulse Resp BP BP Pulse Ox 07/13/25 06:42 07/13/25 06:07 85 07/13/25 06:07 87 07/13/25 05:00 07/13/25 04:00 98.5 F 82 18 131/64 95 07/13/25 03:00 07/13/25 01:00 07/12/25 23:52 94 H 16 145/66 H 95 07/12/25 23:31 92 H 07/12/25 23:31 90 07/12/25 23:00 07/12/25 22:52 87 18 145/72 H 98 07/12/25 21:55 89 20 145/75 H 98 07/12/25 21:40 97.2 F L 96 H 18 143/65 H 99 07/12/25 21:25 89 16 127/66 97 07/12/25 21:10 98.3 F 90 17 141/67 H 98 07/12/25 21:05 97.9 F 88 17 140/70 97 07/12/25 21:00 07/12/25 21:00 97.9 F 98 H 16 139/69 98 07/12/25 20:56 97.9 F 92 H 16 120/66 98 07/12/25 20:42 97.9 F 98 H 16 149/62 H 98 07/12/25 20:00 07/12/25 20:00 98.6 F 94 H 20 134/63 98 07/12/25 19:17 81 07/12/25 19:17 83 07/12/25 19:17 97 07/12/25 18:56 07/12/25 17:00 07/12/25 17:00 98.4 F 91 H 16 132/64 98 07/12/25 16:45 98.3 F 84 16 156/78 H 98 07/12/25 15:45 98.3 F 82 16 138/64 99 07/12/25 15:30 97.8 F 86 16 142/78 H 93 L 07/12/25 15:15 97.9 F 79 16 130/63 98 07/12/25 15:00 07/12/25 15:00 97.8 F 80 16 112/66 98 07/12/25 14:55 97.8 F 85 16 127/68 98 07/12/25 14:50 98.6 F 80 16 127/67 98 07/12/25 14:45 98.1 F 80 16 124/69 98 07/12/25 14:42 97.5 F L 81 16 122/64 98 07/12/25 13:20 07/12/25 12:00 98.1 F 85 18 110/59 L 96 07/12/25 10:25 99 O2 Del Method 07/13/25 06:42 Room Air 07/13/25 06:07 07/13/25 06:07 07/13/25 05:00 Room Air 07/13/25 04:00 Room Air 07/13/25 03:00 Room Air 07/13/25 01:00 Room Air 07/12/25 23:52 07/12/25 23:31 07/12/25 23:31 07/12/25 23:00 Room Air 07/12/25 22:52 07/12/25 21:55 07/12/25 21:40 07/12/25 21:25 07/12/25 21:10 07/12/25 21:05 07/12/25 21:00 Room Air 07/12/25 21:00 07/12/25 20:56 07/12/25 20:42 07/12/25 20:00 Room Air 07/12/25 20:00 Room Air 07/12/25 19:17 07/12/25 19:17 07/12/25 19:17 Room Air 07/12/25 18:56 Room Air 07/12/25 17:00 Room Air 07/12/25 17:00 07/12/25 16:45 07/12/25 15:45 07/12/25 15:30 07/12/25 15:15 07/12/25 15:00 Room Air 07/12/25 15:00 07/12/25 14:55 07/12/25 14:50 07/12/25 14:45 07/12/25 14:42 07/12/25 13:20 Room Air 07/12/25 12:00 Room Air 07/12/25 10:25 Room Air Intake and Output 07/12/25 07/12/25 07/13/25 15:59 23:59 07:59 Intake Total 710 / 1228.400 5162.917 / 1932.917 Output Total 100 / 100 450 / 450 Balance 710 / 4081.228 8580.917 / 1832.917 -450 / -450 Intake: Intake, Oral Amount 360 / 970 610 / 970 Intake, Total IV Amount 350 / 462.917 112.917 / 462.917 0.9 % Sodium Chloride 250 ml @ 12.917 / 12.917 25 mls/hr IV .Q10H [facility] Rx#: [id number] Azithromycin 500 mg In 0.9 % 250 / 250 Sodium Chloride 250 ml @ 250 mls/hr IV Q24H [facility] Rx#:[id number] Cefepime HCl 2 gm In 0.9 % 100 / 200 100 / 200 Sodium Chloride 100 ml @ 200 mls/hr IV Q12H [facility] Rx#:[id number] Intake (Blood Product) Amt 0 / 500 500 / 500 Red Blood Cells Unit 0 / 250 250 / 250 [id number] Red Blood Cells Unit 250 / 250 [id number] Output: Output, Urine Amount 100 / 100 450 / 450 Other: Number of Unmeasured Voids 1 Weight 100.834 kg 105.823 kg Patient Weight 07/13/25 23:59 Weight 105.823 kg Laboratory Results - last 24 hr 07/12/25 08:40: WBC 1.8 L*, RBC 2.02 L, Hgb 6.5 L*, Hct 20.9 L*, MCV 103.5 H, MCH 32.2 H, MCHC 31.1 L, RDW TNP, Plt Count 16 L*, MPV TNP, Neut % (Auto) 45.2, Lymph % (Auto) 35.4, [place] % (Auto) 12.7 H, Eos % (Auto) 5.0, Baso % (Auto) 0.0 L, Neut # (Auto) 0.8 L*, Lymph # (Auto) 0.6 L, [place] # (Auto) 0.2, Eos # (Auto) 0.1, Baso # (Auto) 0.0, Total Counted 100, Neutrophils % (Manual) 50, Lymphocytes % (Manual) 39, Monocytes % (Manual) 10 H, Eosinophils % (Manual) 1, Platelet Estimate Marked decrease, Polychromasia 1+, Macrocytosis 1+, Sodium 138, Potassium 4.3, Chloride 106, Carbon Dioxide 23, Anion Gap 13.3, BUN 26 H, Creatinine 1.40 H, Estimated Creat Clear 59, Estimated GFR 49 L, Est GFR ( Amer) 59, Glucose 116 H, Calcium 9.1, Total Bilirubin 0.7, AST 23, ALT 20, Alkaline Phosphatase 210 H, Total Protein 6.7, Albumin 3.5, Globulin 3.2, Albumin/Globulin Ratio 1.1 07/12/25 10:42: Blood Type O Positive, Antibody Screen Negative, Crossmatch (AH) See Detail 07/12/25 11:50: Chlamy pneumoniae PCR Not detected, Adenovirus (PCR) Not detected, B. pertussis DNA (PCR) Not detected, Coronavirus OC43 (PCR) Not detected, Coronavirus HKU1 (PCR) Not detected, Coronavirus 229E (PCR) Not detected, SARS-CoV-2 (PCR) Not detected, Coronavirus NL63 (PCR) Not detected, Human Metapneumovir PCR Not detected, Influenza A (H1) PCR Not detected, Influ A (H1N1/09) PCR Not detected, Influenza A (H3) PCR Not detected, Influenza Type A (PCR) Not detected, Influenza Type B (PCR) Not detected, M. pneumoniae (PCR) Not detected, Parainfluenza 1 (PCR) Not detected, Parainfluenza 2 (PCR) Not detected, Parainfluenza 3 (PCR) Not detected, Parainfluenza 4 (PCR) Not detected, RSV (PCR) Not detected, Entero/Rhino (PCR) Not detected 07/12/25 19:07: Hgb 7.0 L, Hct 21.4 L 07/13/25 00:18: Hgb 7.5 L, Hct 22.5 L 07/13/25 05:48: WBC 2.0 L, RBC 2.48 L, Hgb 7.5 L, Hct 23.5 L, MCV 94.8 H, MCH 30.2, MCHC 31.9, RDW 27.3 H*, Plt Count 13 L*, MPV TNP, Neut % (Auto) 38.8, Lymph % (Auto) 43.8, [place] % (Auto) 10.4 H, Eos % (Auto) 2.5, Baso % (Auto) 0.5, Neut # (Auto) 0.8 L*, Lymph # (Auto) 0.9, [place] # (Auto) 0.2, Eos # (Auto) 0.1, Baso # (Auto) 0.0, Total Counted 100, Neutrophils % (Manual) 45, Band Neutrophils % 2.0, Lymphocytes % (Manual) 40, Monocytes % (Manual) 13 H, Platelet Estimate Marked decrease, RBC Morphology Normal I & O for Labs for Last 24 Hours: Intake & Output 07/10/25 07/11/25 07/12/25 07/13/25 23:59 23:59 23:59 23:59 Intake Total 1932.917 / 1932.917 Output Total 100 / 100 450 / 450 Balance 1832.917 / 1832.917 -450 / -450 Weight 100.834 kg 105.823 kg Microbiology Reports for the Last 24 Hours: Microbiology 07/12/25 12:15 Sputum - Expectorated Sputum Gram Stain - Final Constitutional: Present no acute distress, obese, chronically ill appearing and cooperative Head: Present atraumatic and normocephalic ENT: Present normal oropharynx Neck: Present normal inspection Respiratory: Present prolonged expiratory phase; Absent respiratory distress, rhonchi, wheezes or crackles Cardiac: Present Reg Rate and Rhythm GI: Present soft and normal bowel sounds; Absent distention Rectal (male): Present deferred (male): Present deferred Extremities: Present normal inspection and full ROM Skin: Present intact Neuro: Present Grossly Intact, alert, awake, oriented x 3 and moves all extremities Assessment and Plan *Assessment and plan (1) Myelodysplastic syndrome: Status: Acute Category: Medical Code(s): D46.9 - Myelodysplastic syndrome, unspecified (2) Cough productive of purulent sputum: Status: Acute Category: Medical Code(s): R05.8 - Other specified cough (3) Hypertension: Status: Chronic Qualifiers: Hypertension type: unspecified Qualified Code(s): I10 - Essential (primary) hypertension Category: Medical Code(s): I10 - Essential (primary) hypertension (4) Leukopenia: Status: Acute Qualifiers: Leukopenia type: unspecified Qualified Code(s): D72.819 - Decreased white blood cell count, unspecified Category: Medical Code(s): D72.819 - Decreased white blood cell count, unspecified (5) Thrombocytopenia: Status: Acute Category: Medical Code(s): D69.6 - Thrombocytopenia, unspecified (6) Anemia: Status: Acute Category: Medical Code(s): D64.9 - Anemia, unspecified (7) Neutropenia: Status: Acute Category: Medical Code(s): D70.9 - Neutropenia, unspecified (8) Obesity (BMI 30.0-34.9): Status: Chronic Category: Medical Code(s): E66.811 - Obesity, class 1 (9) BPH (benign prostatic hyperplasia): Status: Chronic Category: Medical Code(s): N40.0 - Benign prostatic hyperplasia without lower urinary tract symptoms Plan 8-year-old male who presented as direct admit from oncology clinic due to concern for suspected neutropenic fever and productive cough. Discussed case with oncology, request admission given patient's neutropenia (A1c of 800), recurrent anemia necessitating transfusion, and possible infection. I agreed to admit for further care. Cultures obtained and empiric antibiotics initiated. Anticipate admission for at least 2 midnights while we await culture results. Showing some improvement today. Continues to require inpatient management. Problems addressed as follows: Productive cough Neutropenia Myelodysplastic syndrome Fevers at home - Continue broad-spectrum antibiotics with cefepime 2 g every 12 hours and azithromycin 500 mg daily - Sputum and blood cultures obtained. Will monitor cultures for at least 48 hours prior to de-escalation or narrowing of antibiotics. - DuoNebs every 6 hours as needed for cough or shortness of breath - White count remains low at 2.0. absolute neutrophil count of 800. - Sodium 136, potassium 4.2. Kidney function remained stable at baseline with BUN 19, creatinine 1.1. - Comprehensive respiratory panel obtained, negative for analytes Acute on chronic anemia secondary to myelodysplastic syndrome and medication effect: Thrombocytopenia: - Hemoglobin 6.5, platelets 16k on admission. Improved to 2 7.5 with transfusion of 2 units and platelets remain stable at 13 - Transfusion threshold hemoglobin less than 7. Repeat CBC, CMP, magnesium ordered for the morning. -Holding anticoagulation due to risk for bleeding with thrombocytopenia. Will transfuse if develops signs of bleeding or platelets drop below 10 Depression and anxiety: Continue BuSpar 10 mg 4 times a day as needed, Lexapro 20 mg daily. BPH: Continue tamsulosin 0.8 mg nightly Blood pressure normal at time of admission. Will hold pain at this time and reevaluate in the morning PPI for GERD Resume prophylactic valacyclovir 500 mg twice daily Obesity complicates all aspects of his care full code cardiac diet VTE contraindicated due to thrombocytopenia, will use SCDs
[2025-07-13 08:40] LABS: Alanine Aminotransferase 17 U/L (12-78); Albumin Level 3.3 g/dl (3.5-5.0); Albumin/Globulin Ratio 1.1 (1.1-1.8); Alkaline Phosphatase 225 U/L (38-126); Anion Gap 11.2 mEq/L (5-15); Aspartate Amino Transferase 22 U/L (17-59); Bilirubin,Total 1.4 mg/dl (0.2-1.3); Blood Urea Nitrogen 19 mg/dl (9-20); Calcium 8.5 mg/dl (8.4-10.2); Carbon Dioxide 24 mmol/L (22.0-30.0); Chloride 105 mmol/L (98-107); Creatinine Clearance Estimated 80 mL/min (50-200); Creatinine,Serum 1.10 mg/dl (0.66-1.25); Estimated Glomerular Filt Rate 64 ml/min (>60); GFR (African American) 78 ML/MIN (>60); Globulin 3.0 g/dL (1.3-3.2); Glucose 107 mg/dl (74-100); Magnesium 1.6 mg/dl (1.6-2.3); Potassium 4.2 mmoL/L (3.5-5.1); Sodium 136 mmol/L (136-145); Total Protein,Serum 6.3 g/dl (6.3-8.2)
[2025-07-13] MEDS: CEFEPIME HCL 2 GM in 0.9 % SODIUM CHLORIDE 100 ML IV ×2 (09:51→21:30)
[2025-07-13] MEDS: AZITHROMYCIN 500 MG in 0.9 % SODIUM CHLORIDE 250 ML 250 MG IV (09:52)
[2025-07-13] MEDS: ESCITALOPRAM 20MG TABLET 20 MG PO (09:56)
--- OUTSIDE RECORDS SUMMARY | 2025-07-13 15:47 | XMS_ITS | Patient Health Record ---
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, 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) Active confirmed Problem COPD - Chronic obstructive pulmonary disease (98743234) Chronic obstructive pulmonary disease, unspecified COPD type (J44.9) Active confirmed Problem Obese class II (707615911669291) BMI 37.0-37.9, adult (Z68.37) Active confirmed Problem Essential tremor (214640440) Benign essential tremor (G25.0) Active confirmed Problem Generalized anxiety disorder (09371673) ADELINE (generalized anxiety disorder) (F41.1) Active confirmed Problem Lower urinary tract symptoms due to benign prostatic hypertrophy (51620320417237) Benign prostatic hyperplasia with lower urinary tract symptoms, unspecified morphology (N40.1) Active confirmed Problem Contracture of palmar fascia (748554054) Dupuytren's contracture of both hands (M72.0) Active confirmed Problem Pain due to neoplastic disease (07621146988258) 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) Active confirmed Problem Myelodysplastic syndrome (831219279) 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) Active confirmed Vital Signs Heart Rate 68 /min 06/16/2025 Temperature 97.9 degrees Fahrenheit 06/16/2025 Blood pressure diastolic 68 mm Hg 06/16/2025 Height 5 ft 8 in in 06/16/2025 Blood pressure systolic 122 mm Hg 06/16/2025 Weight 230 lbs 06/16/2025 BMI 34.97 kg/m2 06/16/2025 Encounters Encounter Location Date Provider Diagnosis [place] [facility] [address] [place] [address] 01/15/2025 Provider Migration Essential hypertension I10 and ADELINE (generalized anxiety disorder) F41.1 [place] [facility] [address] [address] 07/13/2024 Darian Besnelson Cancer related pain G89.3 ; Essential hypertension I10 ; Immunization(s) administered Z23 and Encounter for immunization Z23 [facility] [address] [address] 12/31/2024 Lisa McNees Paroxysmal atrial fibrillation I48.0 [...] E78.2 and Arthritis, multiple joint involvement M12.[address] [place] [address] [address] 04/12/2025 Darian Besson Acute non-recurrent maxillary sinusitis J01.00 ; Mixed hyperlipidemia E78.2 ; Essential (primary) hypertension I10 and MDS (myelodysplastic syndrome) D46.[address] [place] [address] [address] 06/16/2025 Darian Krystleson Mechanical low back pain M54.59 ; Cancer related pain G89.3 ; Essential hypertension I10 ; ADELINE (generalized anxiety disorder) F41.1 ; MDS (myelodysplastic syndrome) D46.9 ; Routine medical exam Z00.00 and Immunization(s) administered Z23 [facility] [address] [address] 07/19/2024 Darian Besson [place] [address] [address] 08/02/2024 Darian Besson Cancer related pain G89.[address] [place] [address] [address] 08/09/2024 Darian Besson [place] [facility] [address] [place] [address] 09/02/2024 Darian Besson Cancer related pain G89.3 [place] [facility] [address] [place] [address] 10/04/2024 Darian Besson Cancer related pain G89.3 [place] [facility] [address] [place] [address] 10/11/2024 Darian Besson Seasonal allergies J30.2 [place] [facility] [address] [place] [address] 12/17/2024 Darian Besson ADELINE (generalized anxiety disorder) F41.1 [place] [facility] [address] [place] [address] 12/31/2024 Lisa McNees Essential hypertensi on I10 [place] [facility] [address] [place] [address] 12/31/2024 Darian Besson [place] [facility] [address] [place] [address] 01/25/2025 Darian Besson Cancer related pain G89.3 [place] [facility] [address] [place] [address] 02/25/2025 Darian Besson [place] [facility] [address] [place] [address] 03/02/2025 Darian Besson Cancer related pain G89.3 [place] [facility] [address] [place] [address] 04/04/2025 Darian Besson Cancer related pain G89.3 [place] [facility] [address] [place] [address] 04/05/2025 Darian Besson Cancer related pain G89.3 [place] [facility] [address] [place] [address] 04/13/2025 Darian Besson [place] [facility] [address] [place] [address] 05/04/2025 Darian Besson [place] [facility] [address] [place] [address] 05/05/2025 Darian Besson Cancer related pain G89.3 [place] [facility] [address] [place] [address] 06/06/2025 Darian Besson Cancer related pain G89.3 [place] [facility] [address] [place] [address] 06/23/2025 Darian Besson [place] [facility] [address] [facility] [place] [address] 07/07/2025 Darian Besson Cancer related pain G89.3 Assessments [...] 08/02/2024 Cancer related pain (ICD-10 - G89.3) 10/04/2024 [...] I10) 01/15/2025 Essential hypertension (ICD-10 - I10) 03/02/2025 Cancer related pain (ICD-10 - G89.3) [...] 07/07/2025 Cancer related pain (ICD-10 - G89.3) 01/25/2025 Cancer related pain (ICD-10 - G89.3) 09/02/2024 Cancer related pain (ICD-10 - G89.3) 06/16/2025 [...] M-Comprehensive Metabolic Panel 10/18/19 22 M-Hemoglobin A1C 10/18/2021 M-Hemoglobin A1C 05/31/2022 M-Lipid Panel 05/31/2022 M-Lipid Panel 10/21/2022 M-Lipid Panel 12/31/2024 M-Lipid Panel 10/18/2021 M-Lipid Panel 02/21/2023 M-PSA Total+% Free 05/31/2022 Insurance Providers Payer Name Payer Address Payer Phone Subscriber Number Group Number Insured Name Patient Relationship to Insured Coverage Start Date Coverage End [place] [address] [place] [address] [id number] Glenn Marti Self - patient is the insured MEDICAID EDS [address] [place] [address] [id number] Glenn Marti Self - patient is the insured [employer] [address] [place] [address] [phone] [id number] Glenn Marti Self - patient is [...]
--- NOTE | 2025-07-13 18:16 | PC.NURSE ---
pt has done well this shift. no significant changes from previous shift.
[2025-07-13] MEDS: PANTOPRAZOLE 40MG TABLET 40 MG PO (20:13)
[2025-07-13] MEDS: TAMSULOSIN 0.4MG CAPSULE 0.8 MG PO (20:14)
[2025-07-14] MEDS: IPRATROPIUM/ALBUTEROL 3 ML NEB IH ×3 (00:34→11:13)
[2025-07-14 00:35] VITALS: PULSE 80; PULSE 82
[2025-07-14 04:00] VITALS: BP 154/77; PULSE 87; RESP 14; TEMP 36.8; O2SAT 96; BMI 30.2
[2025-07-14 05:48] VITALS: PULSE 75; PULSE 80; O2SAT 98
[2025-07-14 06:04] LABS: Hematocrit 23.2 % (42.0-52.0); Hemoglobin 7.6 g/dL (14.1-18.0); Immature Granulocytes % 1.5 %; Mean Corpuscular HGB Conc 32.8 g/dL (31.8-35.4); Mean Corpuscular Hemoglobin 31.0 pg (27.0-31.2); Mean Corpuscular Volume 94.7 fl (80-94); Nucleated Red Blood Cells % 0 %; Red Blood Count 2.45 M/mm3 (4.60-6.20); Red Cell Distribution Width-SD 86.3 fL
[2025-07-14 06:09] LABS: White Blood Count 1.4 K/mm3 (4.8-10.8)
[2025-07-14 06:10] LABS: Platelet Count 13 K/mm3 (142-424)
[2025-07-14 06:11] LABS: Anion Gap 11.1 mEq/L (5-15); Blood Urea Nitrogen 17 mg/dl (9-20); Calcium 8.4 mg/dl (8.4-10.2); Carbon Dioxide 21 mmol/L (22.0-30.0); Chloride 108 mmol/L (98-107); Creatinine Clearance Estimated 84 mL/min (50-200); Creatinine,Serum 0.90 mg/dl (0.66-1.25); Estimated Glomerular Filt Rate 81 ml/min (>60); GFR (African American) 98 ML/MIN (>60); Glucose 102 mg/dl (74-100); Potassium 4.1 mmoL/L (3.5-5.1); Sodium 136 mmol/L (136-145)
[2025-07-14 06:22] LABS: Total Cells Counted 100
[2025-07-14 07:55] VITALS: BP 130/57; PULSE 89; RESP 18; TEMP 36.6; O2SAT 97
[2025-07-14] MEDS: ESCITALOPRAM 20MG TABLET 20 MG PO (08:25)
--- NOTE | 2025-07-14 08:46 | EXP.DC.SUM ---
General Admission date:: 07/12/25 Discharge date: 07/14/25 HPI HPI HPI: Mr. Marti is an 80-year-old male with history of myelodysplastic syndrome. Follows with oncology at [facility]. Presented for routine follow-up today and was found to be anemic. Struggles with pancytopenia due to his chemotherapy and myelodysplastic syndrome. White count remains low including A1c less than thousand. Reports that he has had a cough that is mildly productive. At home states that he has had a low-grade fever of approximately 100. No nay fever greater than 100.4. Hemoglobin 6.5. Platelet count 16,000. Given his abnormalities, medicine was consulted for admission and empiric antibiotics along with further workup for possible neutropenic fever. On arrival to the floor, patient stable on room air. Has a mild cough that is intermittently productive for thick yellow sputum. Denies chest pain, nausea, shortness of breath. Temperature normal at 98 on admission. Hospital Course Hospital Course Hospital Course: 80-year-old male who presented as direct admit from oncology clinic due to concern for suspected neutropenic fever and productive cough. Discussed case with oncology, request admission given patient's neutropenia (A1c of 800), recurrent anemia necessitating transfusion, and possible infection. I agreed to admit for further care. Cultures obtained and empiric antibiotics initiated. Anticipate admission for at least 2 midnights while we await culture results. Patient showed improvement during admission. Cultures remain negative. Will complete empiric course for respiratory illness with Levaquin. Follow-up with oncology and primary care in the next 1 to 2 weeks. Stable on room air throughout duration of admission. Problems addressed as follows: Productive cough Neutropenia Myelodysplastic syndrome Fevers at home - Presented with neutropenia of 800. Patient had productive cough, subjective fever at home. No fevers during admission. Cultures including sputum and blood cultures negative at time of discharge. ANC did drop slightly to 400 with white count of 1.4 but this is not far off from his normal baseline due to his myelodysplastic syndrome. Remained stable on room air throughout duration of admission. Will transition to levofloxacin for 5 more days to complete 7 days total of antibiotics for suspected bronchitis in the setting of neutropenia. Chest imaging reviewed showed no focal consolidation. Tolerating p.o. intake. - Continue prophylactic valacyclovir 500 mg twice daily - Anemia, thrombocytopenia, neutropenia all secondary to myelodysplastic syndrome with hypocellular bone marrow. Has not had chemotherapy since September. Requires regular transfusions. Poor response to erythropoietin Acute on chronic anemia secondary to myelodysplastic syndrome and medication effect: Thrombocytopenia: - Hemoglobin 6.5, platelets 16k on admission. Received 2 units packed red blood cells. Hemoglobin remained stable at 7.6 on day of discharge. Platelets 13. Will need follow-up with oncology for further transfusions as an outpatient. Anticoagulation held during admission. Would benefit from repeat CBC, CMP and 1 to 2 weeks to monitor stability of cell lines. Depression and anxiety: Continue BuSpar 10 mg 4 times a day as needed, Lexapro 20 mg daily. BPH: Continue tamsulosin 0.8 mg nightly Hypertension: Resume amlodipine after discharge PPI for GERD Total time spent on discharge 32 minutes in counseling, documentation, chart review, and direct care with patient. Exam Data for Last 24 hours Vital signs and Labs for Last 24 Hours: Temp Pulse Resp BP Pulse Ox O2 Del Method 97.8 F 89 18 130/57 L 97 Room Air 07/14/25 07:55 07/14/25 07:55 07/14/25 07:55 07/14/25 07:55 07/14/25 07:55 07/14/25 07:55 Laboratory Results - last 24 hr 07/13/25 05:48: Sodium 136, Potassium 4.2, Chloride 105, Carbon Dioxide 24, Anion Gap 11.2, BUN 19 D, Creatinine 1.10 D, Estimated Creat Clear 80, Estimated GFR 64, Est GFR ( Amer) 78 D, Glucose 107 H, Calcium 8.5, Magnesium 1.6, Total Bilirubin 1.4 H, AST 22, ALT 17, Alkaline Phosphatase 225 H, Total Protein 6.3, Albumin 3.3 L, Globulin 3.0, Albumin/Globulin Ratio 1.1 07/14/25 05:38: WBC 1.4 L* D, RBC 2.45 L, Hgb 7.6 L, Hct 23.2 L, MCV 94.7 H, MCH 31.0, MCHC 32.8, RDW 26.8 H*, Plt Count 13 L*, Neut % (Auto) 29.6 L, Lymph % (Auto) 52.6 H, [place] % (Auto) 11.9 H, Eos % (Auto) 3.7, Baso % (Auto) 0.7, Neut # (Auto) 0.4 L*, Lymph # (Auto) 0.7, [place] # (Auto) 0.2, Eos # (Auto) 0.1, Baso # (Auto) 0.0, Total Counted 100, Neutrophils % (Manual) 27 L, Band Neutrophils % 3, Lymphocytes % (Manual) 56 H, Monocytes % (Manual) 14 H, Platelet Estimate Marked decrease, Sodium 136, Potassium 4.1, Chloride 108 H, Carbon Dioxide 21 L, Anion Gap 11.1, BUN 17, Creatinine 0.90, Estimated Creat Clear 84, Estimated GFR 81, Est GFR ( Amer) 98 D, Glucose 102 H, Calcium 8.4 I & O for Last 24 hours: Intake & Output 07/11/25 07/12/25 07/13/25 07/14/25 23:59 23:59 23:59 23:59 Intake Total 1932.917 / 7665.319 0890.083 / 1787.083 200 / 200 Output Total 100 / 100 450 / 450 0 / 0 Balance 1832.917 / 5409.053 1480.083 / 1337.083 200 / 200 Weight 100.834 kg 105.823 kg 101.378 kg Microbiology Reports for the Last 24 Hours: Microbiology 07/12/25 12:15 Sputum - Expectorated Sputum Gram Stain - Final 07/12/25 12:15 Sputum - Expectorated Sputum Sputum Culture - Final 07/12/25 12:15 Blood Blood Culture - Preliminary NO GROWTH AFTER 24 HOURS 07/12/25 10:42 Blood Blood Culture - Preliminary NO GROWTH AFTER 24 HOURS Constitutional Constitutional: no acute distress, obese, chronically ill appearing and cooperative *Routine HEENT Exam Head: Present normocephalic Eye: Present EOMI and PERRL ENT: Present mucous membranes moist *Routine Neck Exam Neck: Present supple; Absent lymphadenopathy *Routine Respiratory Exam Respiratory: Present CTA bilaterally; Absent rhonchi, wheezes or crackles *Routine Cardiovascular Exam Cardiovascular: Present RRR *Routine Abdominal Exam Abdominal: Present soft and normoactive bowel sounds; Absent tenderness *Routine Rectal Exam Patient deferred: visual exam *Routine Exam Patient deferred: penile exam *Routine Extremities Exam Extremities: Absent cyanosis, clubbing or edema *Routine Skin Exam Skin: Present intact and warm; Absent rash *Routine Neurological Exam Neurological: Present alert, oriented X3 and moving all extremities; Absent altered mental status Results Data Completed and Pending Labs on day of discharge: Labs from last 24 hours 07/14/25 07/13/25 05:38 05:48 WBC 1.4 L* D RBC 2.45 L Hgb 7.6 L Hct 23.2 L MCV 94.7 H MCH 31.0 MCHC 32.8 RDW 26.8 H* Plt Count 13 L* Neut % (Auto) 29.6 L Lymph % (Auto) 52.6 H [place] % (Auto) 11.9 H Eos % (Auto) 3.7 Baso % (Auto) 0.7 Neut # (Auto) 0.4 L* Lymph # (Auto) 0.7 [place] # (Auto) 0.2 Eos # (Auto) 0.1 Baso # (Auto) 0.0 Total Counted 100 Neutrophils % (Manual) 27 L Band Neutrophils % 3 Lymphocytes % (Manual) 56 H Monocytes % (Manual) 14 H Platelet Estimate Marked decrease Sodium 136 136 Potassium 4.1 4.2 Chloride 108 H 105 Carbon Dioxide 21 L 24 Anion Gap 11.1 11.2 BUN 17 19 D Creatinine 0.90 1.10 D Estimated Creat Clear 84 80 Estimated GFR 81 64 Est GFR ( Amer) 98 D 78 D Glucose 102 H 107 H Calcium 8.4 8.5 Magnesium 1.6 Total Bilirubin 1.4 H AST 22 ALT 17 Alkaline Phosphatase 225 H Total Protein 6.3 Albumin 3.3 L Globulin 3.0 Albumin/Globulin Ratio 1.1 Preliminary micro results at discharge 07/12/25 12:15 Blood Culture - Preliminary Blood NO GROWTH AFTER 24 HOURS 07/12/25 10:42 Blood Culture - Preliminary Blood NO GROWTH AFTER 24 HOURS DS: Diagnosis Discharge Diagnosis (1) Neutropenia: Status: Acute Code(s): D70.9 - Neutropenia, unspecified Qualifiers: Neutropenia type: other Qualified Code(s): D70.8 - Other neutropenia (2) Myelodysplastic syndrome: Status: Acute Code(s): D46.9 - Myelodysplastic syndrome, unspecified (3) Cough productive of purulent sputum: Status: Acute Code(s): R05.8 - Other specified cough (4) Hypertension: Status: Chronic Code(s): I10 - Essential (primary) hypertension Qualifiers: Hypertension type: unspecified Qualified Code(s): I10 - Essential (primary) hypertension (5) Leukopenia: Status: Acute Code(s): D72.819 - Decreased white blood cell count, unspecified Qualifiers: Leukopenia type: unspecified Qualified Code(s): D72.819 - Decreased white blood cell count, unspecified (6) Thrombocytopenia: Status: Acute Code(s): D69.6 - Thrombocytopenia, unspecified (7) Anemia: Status: Acute Code(s): D64.9 - Anemia, unspecified Qualifiers: Anemia type: bone marrow failure Bone marrow failure anemia type: other bone marrow failure Qualified Code(s): D61.89 - Other specified aplastic anemias and other bone marrow failure syndromes (8) Obesity (BMI 30.0-34.9): Status: Chronic Code(s): E66.811 - Obesity, class 1 (9) BPH (benign prostatic hyperplasia): Status: Chronic Code(s): N40.0 - Benign prostatic hyperplasia without lower urinary tract symptoms Meds Home Medications and Allergies Home Medications ?Medication ?Instructions ?Recorded ?Confirmed ?Type tamsulosin 0.4 mg capsule (Flomax) 0.8 mg PO HS 07/30/18 07/12/25 History escitalopram oxalate 20 mg tablet 20 mg PO DAILY 03/28/23 07/12/25 History buspirone 10 mg tablet 10 mg PO QIDP PRN Anxiety 08/14/23 07/12/25 History omeprazole 20 mg capsule,delayed 20 mg PO DAILY 4 weeks #28 caps 01/15/24 07/12/25 Rx release levocetirizine 5 mg tablet 5 mg PO DAILY 06/15/24 07/12/25 History oxycodone-acetaminophen 10 mg-325 1 tab PO Q8HP PRN Moderate Pain 09/02/24 07/12/25 History mg tablet (Scale Score 5-6) meloxicam 15 mg tablet 15 mg PO DAILY 03/08/25 07/12/25 History amlodipine 5 mg tablet 5 mg PO DAILY 07/12/25 07/12/25 History cyclobenzaprine 10 mg tablet 10 mg PO TID PRN Spasms 07/12/25 07/12/25 History valacyclovir 500 mg tablet 500 mg PO BID 07/12/25 07/12/25 History levofloxacin 750 mg tablet 750 mg PO DAILY #5 tabs 07/14/25 Rx New Prescriptions to Start Prescriptions: levofloxacin Tevin Howell Allergies Allergy/AdvReac Type Severity Reaction Status Date / Time No Known Allergies Allergy Verified 07/12/25 09:03 Discharge Plan Disposition Patient Disposition: Home, Self-Care Condition: Fair Discharge Order Discharge Orders: Discharge Order (Routine); Ordered 07/14/25 Ordered By: Tevin Howell Follow up Plan Follow up with: Chinmay Whitt MD [Staff Physician, Oncology] - 07/22/25 2:00 pm Darian Brunner MD [Primary Care Provider, Internal Medicine] - 07/21/25 11:45 am Referral Note: In [facility] office. Prescriptions/Medication Reconciliation: New levofloxacin 750 mg tablet 750 mg PO DAILY Qty: 5 0RF Continued tamsulosin [Flomax] 0.4 mg capsule 0.8 mg PO HS buspirone 10 mg tablet 10 mg PO QIDP PRN (Reason: Anxiety) escitalopram oxalate 20 mg tablet 20 mg PO DAILY oxycodone-acetaminophen 10-325 mg tablet 1 tab PO Q8HP PRN (Reason: Moderate Pain (Scale Score 5-6)) meloxicam 15 mg tablet 15 mg PO DAILY levocetirizine 5 mg tablet 5 mg PO DAILY omeprazole 20 mg capsule,delayed release(DR/EC) 20 mg PO DAILY 28 Days Qty: 28 0RF cyclobenzaprine 10 mg Tablet 10 mg PO TID PRN (Reason: Spasms) amlodipine 5 mg tablet 5 mg PO DAILY valacyclovir 500 mg tablet 500 mg PO BID Patient Comments: TAKE ONE TABLET BY MOUTH TWICE DAILY Problem Reconciliation Problems Reviewed?: Yes Patient Discharge Instructions ACTIVITY: Continue current activity DIET: continue same diet Patient Instructions: DI for Neutropenia, DI for Myelodysplastic Syndrome Print Language: [place] Providers Primary Care Provider: Darian Brunner Admit Provider: Tevin Howell Attending Provider: Tevin Howell
[2025-07-14] MEDS: CEFEPIME HCL 2 GM in 0.9 % SODIUM CHLORIDE 100 ML IV (09:11)
[2025-07-14] MEDS: AZITHROMYCIN 250MG TABLET 500 MG PO (09:11)
[2025-07-14 11:14] VITALS: PULSE 62; PULSE 68; O2SAT 98
--- NOTE | 2025-07-15 10:23 | SW/DCPLANNER ---
Spoke with patient on the phone. patient stated that he is feeling better if he can get rid of his cough and sore throat. Patient stated that he is aware of his upcoming appointments. Patient stated that he was able to get his new medicine picked up from clinic pharmacy. Patient stated that he has no concerns or questions at this time. Abdifatah James
== END 2025-07-14 12:10 | disposition home or self-care (01) | DRG 812 ==
LOC: 2ND 09:52
PROVIDERS: Internal Medicine; Internal Medicine Medical Oncology; Admitting Provider Internal Medicine Adolescent Medicine; PCP Internal Medicine Adolescent Medicine; Visit Provider Internal Medicine Adolescent Medicine
DX: D46.9 Myelodysplastic syndrome, unspecified (principal); J40 Bronchitis, not specified as acute or chronic; I10 Essential (primary) hypertension; E66.811 Obesity, class 1; N40.0 Benign prostatic hyperplasia without lower urinary tract symptoms; T45.1X5A Adverse effect of antineoplastic and immunosuppressive drugs, initial encounter; F32.A Depression, unspecified; F41.9 Anxiety disorder, unspecified; K21.9 Gastro-esophageal reflux disease without esophagitis; R50.81 Fever presenting with conditions classified elsewhere; Z68.30 Body mass index [BMI] 30.0-30.9, adult; Z79.899 Other long term (current) drug therapy
CPT/HCPCS: 0223U; 36415; 36430; 71046; 80048; 80053; 83735; 85007; 85014; 85018; 85025; 86850; 87040; 87070; 87205; 89220; 94640; J0456; J0692; J7050; P9016

== ENCOUNTER 2025-07-22 09:07 | Outpatient (CLI) | payer MEDICARE, MEDICAID, SELFPAY ==
[2025-07-22 09:09] VITALS: BMI 25.5
--- OUTSIDE RECORDS SUMMARY | 2025-07-22 09:11 | XMS_ITS | Referral Summary ---
Author Organization [facility] ([place], [place], [place], [place]) Address [address] [place] [address] Care Team Providers Care Lamp Shade Joiner Name Role Phone Darian Brunner MD Primary Care Provider + [phone] Allergies No known active allergies Medications acyclovir [...] Date Celestino rded Speak language other than Lebanese at home Not on file 12/25/2023 Want [...] on file Medical Devices Implanted Type Area Knockdown Worker Device Identifier Shelf Expiration Date Model / Serial / Lot Iol Uv Jared +21.0 [id number] - [id number] Implanted:Qty: 1 on 11/18/2024 by Julianna Mendez MD at [facility] IMPLANTS Right: Eye ANDRÉS 08/12/2027 [id number] / [id number] / Iol Uv Clareon +20.5 [id number] - [id number] Implanted:Qty: 1 on 12/16/2024 by Julianna Mendez MD at [facility] IMPLANTS Left: Eye ANDRÉS 09/01/2027 [id number] / [id number] / Insurance MEDICARE PART A B MEDICAID QMB Care Teams Lamp Shade Joiner Relationship Specialty Start Date End Date Darian Brunner MD [address] [place] [address] PCP - General Adolescent Medicine 01/01/24
--- OUTSIDE RECORDS SUMMARY | 2025-07-22 09:11 | XMS_ITS | Clinical Summary ---
Author Organization [employer] ([place], [place], [place], [place]) Address [address] [place] [address] Care Team Providers Care Spotter Name Role Phone Darian Brunner MD Primary Care Provider + [phone] Allergies No known active allergies Medications acyclovir [...] Date Celestino rded Speak language other than Kuwaiti at home Not on file 12/25/2023 Want [...] or (1 - 1-dose 75+ series) 2020 Falls Risk Screening 10/13/2024 COVID-19 VACCINE (6 2024-2 6 season) 2025 08/07/2023, 09/03/2022, 05/03/2022, Additional history exists Influenza Vaccine (#1) 2025 07/21/2023, 2020 Tobacco Cessation Counseling and Screening (12+) 12/16/2025 12/16/2024 DTAP/TDAP/TD VACCINES (3 - T d or Tdap) 05/31/2031 05/31/2021, 05/11/2004 Pneumococcal 50+ years Completed 9, 11/10/2017, 08/18/2008 Shingles Vaccine (Zoster) Completed 10/24/2023, Medical Devices Implanted Type Area Route Driver Device Identifier Shelf Expiration Date Model / Serial / Lot Iol Uv Clareon +21.0 [id number] - [id number] Implanted:Qty: 1 on 11/18/2024 by Julianna Mendez MD at [facility] IMPLANTS Right: Eye ANDRÉS 08/12/2027 [id number] / [id number] / Iol Uv Clareon +20.5 [id number] - [id number] Implanted:Qty: 1 on 12/16/2024 by Julianna Mendez MD at [facility] IMPLANTS Left: Eye ANDRÉS 09/01/2027 [id number] / [id number] / Insurance MEDICARE PART A B MEDICAID B Care Teams Spotter Relationship Specialty Start Date End Date Darian Brunner MD [address] [place] [address] PCP - General Adolescent Medicine 01/01/24
[2025-07-22 09:38] LABS: Hematocrit 26.3 % (42.0-52.0); Hemoglobin 8.6 g/dL (14.1-18.0); Immature Granulocytes % 1.0 %; Mean Corpuscular HGB Conc 32.7 g/dL (31.8-35.4); Mean Corpuscular Hemoglobin 31.9 pg (27.0-31.2); Mean Corpuscular Volume 97.4 fl (80-94); Nucleated Red Blood Cells % 0 %; Red Blood Count 2.70 M/mm3 (4.60-6.20); Red Cell Distribution Width-SD 86.7 fL
[2025-07-22 09:39] LABS: Alanine Aminotransferase 22 U/L (12-78); Albumin Level 3.8 g/dl (3.5-5.0); Albumin/Globulin Ratio 1.2 (1.1-1.8); Alkaline Phosphatase 188 U/L (38-126); Anion Gap 14.2 mEq/L (5-15); Aspartate Amino Transferase 30 U/L (17-59); Bilirubin,Total 0.7 mg/dl (0.2-1.3); Blood Urea Nitrogen 33 mg/dl (9-20); Calcium 9.1 mg/dl (8.4-10.2); Carbon Dioxide 23 mmol/L (22.0-30.0); Chloride 107 mmol/L (98-107); Creatinine Clearance Estimated 56 mL/min (50-200); Creatinine,Serum 1.50 mg/dl (0.66-1.25); Estimated Glomerular Filt Rate 45 ml/min (>60); GFR (African American) 54 ML/MIN (>60); Globulin 3.3 g/dL (1.3-3.2); Glucose 93 mg/dl (74-100); Potassium 4.2 mmoL/L (3.5-5.1); Sodium 140 mmol/L (136-145); Total Protein,Serum 7.1 g/dl (6.3-8.2)
[2025-07-22 10:03] LABS: Platelet Count 18 K/mm3 (142-424); White Blood Count 1.1 K/mm3 (4.8-10.8)
[2025-07-22 10:55] VITALS: BP 95/52; PULSE 96; RESP 17; O2SAT 99
[2025-07-22] MEDS: 0.9 % SODIUM CHLORIDE 1000ML 1,000 ML 500 ML IV (10:55)
[2025-07-22 11:20] LABS: Total Cells Counted 100
[2025-07-22 11:29] LABS: Poikilocytosis 2+
[2025-07-22 12:55] VITALS: BP 132/76; PULSE 81; RESP 16
--- NOTE | 2025-07-22 14:33 | PC.NURSE ---
0915-Blood drawn from left AC using butterfly needle to check labs prior to oncology appt.
== END 2025-07-22 23:59 | disposition home or self-care (01) ==
LOC: INF 09:08
PROVIDERS: PCP Internal Medicine Adolescent Medicine; Visit Provider Internal Medicine Medical Oncology
DX: D46.9 Myelodysplastic syndrome, unspecified (principal)
CPT/HCPCS: 80053; 85007; 85025; 85027; 96360; 96361; J7030

== ENCOUNTER 2025-08-02 08:59 | Outpatient (CLI) | payer MEDICARE, MEDICAID, SELFPAY ==
--- OUTSIDE RECORDS SUMMARY | 2024-09-14 05:30 | XMS_ITS ---
Author Organization [facility] Address [address] [place] [address] Care Team Providers Care Salvage Engineer Name Role Phone Darian Brunner Primary Care Provider REASON FOR VISIT med ck Encounters Encounter Location Date Provider Diagnosis [facility] [address] [address] 09/14/2024 Darian Brunner Plan Of Treatment Next Appt Details Provider Name:Darian Brunner, 08/16/2025 11:30:00 AM, [address] [place] [address], [phone], Progress Notes * Glenn MARTI BDOB:[birth year] (80 yo M)Acc No.[id number]:09/14/2024 Progress Notes Patient: Theresa PACKGlenn Provider: Rossy Brunner MD :1945 A ge:79 Y S ex:Male Date:09/14/2024 Address:[address] [id number] Subjective: * Chief Complaints: * 1 . Med ck. * Medical History: Objective: * Vitals: Assessment: Plan: * Treatment: * * Electronic signature of Vasyl Brunner MD FAAP on 08/02/2025 at 09:25 AM EDT Sign off status: Pending * Provider: Rossy Brunner MD Date: 11/15/2023 Generated for Claudette hess/Vinicio/Janineitting on: 1 09:25 AM EDT
--- OUTSIDE RECORDS SUMMARY | 2024-11-16 08:30 | XMS_ITS ---
Author Organization [facility] PE D [facility] Address [address] [place] [address] Care Team Providers Care Curator Of Education Name Role Phone Darian Brunner Primary Care Provider REASON FOR VISIT [facility] Encounters Encounter Location Date Provider Diagnosis [place] [address] [address] 11/16/2024 Darian Brunner Plan Of Treatment Next Appt Details Provider Name:Darian Brunner, 08/16/2025 11:30:00 AM, [address] [place] [address], [place], [address], Progress Notes * Glenn MARTI BDOB:[birth year] (80 yo M)Acc No.[id number]:11/16/2024 HOSP F/U Patient: Theresa Glenn PACK Provider: Rossy Brunner MD :1945 A ge:79 Y S ex:Male Date:11/16/2024 Address:[address] [id number] Subjective: * Chief Complaints: * 1 . [facility]. * Medical History: Objective: * Vitals: Assessment: Plan: * Treatment: * * Electronic signature of Vasyl Brunner MD FAAP on 08/02/2025 at 09:25 AM EDT Sign off status: Pending * Provider: Rossy Brunner MD Date: 0 11/16/2024 Generated for Claudette hess/Vinicio/Etienne on: 1 09:25 AM EDT
--- OUTSIDE RECORDS SUMMARY | 2025-01-15 17:30 | XMS_ITS ---
Author Organization [facility] Address [address] [place] [address] Care Team Providers Care Extracting Machine Operator Name Role Phone Darian Brunner Primary Care Provider Migration, Provider Unavailable Unavailable REASON FOR VISIT [facility] Encounter Medications Medication SIG (Take, Route, [...] Active Encounters Encounter Location Date Provider Diagnosis [facility] P[facility] [address] [facility] [address] [place] [address] 01/15/2025 Provider Migration Essential hypertension I10 and [...] a day prn anxiety; Duration: 90 days Next Appt Details Provider Name:Darian Brunner, 08/16/2025 11:30:00 AM, [address] [place] [address], [phone], Progress Notes * Glenn MARTI BDOB:[birth year] (80 yo M)Acc No.[id number]:01/15/2025 Patient: Glenn GILMORE Provider: Caroline White :1945 A ge:79 Y S ex:Male Date:01/15/2025 Address:[facility] [address], [facility], [id number] Pcp:Darian Brunner Subjective: * Chief Complaints: * 1 . [facility]. * Medical History: * Medications: [...] and pick correct strength-formulation from [facility] options. If intended option is not shown, [...] Electronic signature of Prov ider Migration on 08/02/2025 at 09:25 AM EDT Sign off status: Pending * Provider: Caroline cedeño Migration Date: 0 01/15/2025 Generated for Claudette hess/Vinicio/Etienne on: 1 09:25 AM EDT
--- OUTSIDE RECORDS SUMMARY | 2025-04-08 07:45 | XMS_ITS ---
Author Organization [facility] D [place] Address [address] [place] [address] Care Team Providers Care High Speed Warper Tender Name Role Phone Darian Brunner Primary Care Provider Lisa Jones Unavailable [phone] REASON FOR VISIT med ck Encounters Encounter Location Date Provider Diagnosis [address] [address] 04/08/2025 Lisa Jones Plan Of Treatment Next Appt Details Provider Name:Darian Brunner, 08/16/2025 11:30:00 AM, [address] [place] [address], [phone], Progress Notes * Glenn MARTI BDOB:[birth year] (80 yo M)Acc No.[id number]:04/08/2025 Progress Notes Patient: Theresa Glenn PACK Provider: Theresa Jones APRN :1945 A ge:79 Y S ex:Male Date:04/08/2025 Address:[address] [id number] Pcp:Darian Brunner Subjective: * Chief Complaints: * 1 . Med ck. * Medical History: Objective: * Vitals: Assessment: Plan: * Treatment: * * Electronic signature of Leni Jones APRN on 08/02/2025 at 09:26 AM EDT Sign off status: Pending * Provider: Theresa Jones, CLARK Date: 0 04/08/2025 Generated for Claudette hess/Vinicio/Etienne on: 1 09:26 AM EDT
--- OUTSIDE RECORDS SUMMARY | 2025-06-16 08:15 | XMS_ITS ---
Author Organization [facility] Address [address] [place] [address] Care Team Providers Care Assistant Womens Volleyball Coach Name Role Phone Darian Brunner Primary Care Provider [phone] Allergies No Known Allergies REASON FOR VISIT [...] review and pick correct strength-formulati on from [employer] options. If intended option is not shown, [...] Signs Temperature 97.9 degrees Fahrenheit 06/16/20 25 Blood pressure systolic 122 mm Hg 06/16/20 25 Blood pressure diastolic 68 mm Hg 025 Heart Rate 68 /min 06/16/2025 Height 5 ft 8 in in 06/16/2025 Weight 230 lbs 06/16/2025 BMI 34.97 kg/m2 06/16/2025 Encounters Encounter Location Date Provider Diagnosis [facility] [address] [address] 06/16/2025 Darian Brunner Mechanical low back pain [...] Details Follow Up: prn,2 Weeks, Reas on: Provider Name:Darian Brunner, 08/16/2025 11:30:00 AM, [address] [facility], [facility], [place], [address], Progress Notes * [place]SA[place] Glenn BDOB:[birth year] (80 yo M)Acc No.[id number]:06/16/2025 Progress Notes Patient: Glenn GILMORE Provider: Rossy Brunner MD :1945 A ge:80 Y S ex:Male Date:06/16/2025 Address:[facility] [place], [facility] Subjective: * Chief Complaints: * 1 . [...] Diagno stic Procedure: jared ruiz , Cancer- [facility] . * Family History: F [...] Brunner MD Date: 0 06/16/2025 Generated for Claudette hess/Vinicio/eTransmitting on: 1 09:25 AM EDT History and Physical Notes * [...] nasolabial fold Peripheral pulses: normal (2+) bilatera lllise General Pleasant and Coopera NILO hernández on RA,
--- OUTSIDE RECORDS SUMMARY | 2025-06-30 07:15 | XMS_ITS ---
Author Organization [facility] PE D CATARINA Address [address] [place] [address] Care Team Providers Care Plastic Panel Installer Name Role Phone Darian Brunner Primary Care Provider [phone] REASON FOR VISIT 2 weeks, ED FU d/c 06/22/2025 Encounters Encounter Location Date Provider Diagnosis [address] [address] 06/30/2025 Darian Brunner Plan Of Treatment Next Appt Details Provider Name:Darian Brunner, 08/16/2025 11:30:00 AM, [address] [place] [address], [address], Progress Notes * Glenn MARTI BDOB:[birth year] (80 yo M)Acc No.[id number]:06/30/2025 Progress Notes Patient: Glenn GILMORE Lucie Provider: Rossy Brunner MD :1945 A ge:80 Y S ex:Male Date:06/30/2025 Address:[id number] Subjective: * Chief Complaints: * 1 . 2 weeks, ED FU d/c 06/22/2025. * Medical History: Objective: * Vitals: Assessment: Plan: * Treatment: * * Electronic signature of Vasyl Brunner MD FAAP on 08/02/2025 at 09:24 AM EDT Sign off status: Pending * Provider: Rossy Brunner MD Date: 0 06/30/2025 Generated for Claudette hess/Vinicio/Etienne on: 1 09:24 AM EDT
--- OUTSIDE RECORDS SUMMARY | 2025-07-21 07:45 | XMS_ITS ---
Author Organization [facility] PE D CATARINA Address [address] [place] [address] Care Team Providers Care Allergist/Immunologist Name Role Phone Darian Brunner Primary Care Provider REASON FOR VISIT [facility] D/C 07/14/2025 Encounters Encounter Location Date Provider Diagnosis [place] [address] [address] 07/21/2025 Darian Brunner Plan Of Treatment Next Appt Details Provider Name:Darian Brunner, 08/16/2025 11:30:00 AM, [address] [place] [address], [phone], Progress Notes * Glenn MARTI BDOB:[birth year] (80 yo M)Acc No.[id number]:07/21/2025 HOSP F/U Patient: Theresa PACK Glenn Faulkner Provider: Rossy Brunner MD :1945 A ge:80 Y S ex:Male Date:07/21/2025 Address:[address] [id number] Subjective: * Chief Complaints: * 1 . [facility] D/C 07/14/2025. * Medical History: Objective: * Vitals: Assessment: Plan: * Treatment: * * Electronic signature of Vasyl Brunner MD FAAP on 08/02/2025 at 09:25 AM EDT Sign off status: Pending * Provider: Rossy Brunner MD Date: 1 Generated for Claudette hess/Vinicio/Etienne on: 1 09:25 AM EDT
--- OUTSIDE RECORDS SUMMARY | 2025-07-26 08:15 | XMS_ITS ---
Author Organization [facility] Address [address] [facility] [address] [place] [address] Care Team Providers Care Machine Operator Packaging Name Role Phone Darian Brunner Primary Care Provider Allergies No Known Allergies REASON FOR VISIT [facility] hospital f/u, rash all over, anxiety [...] review and pick correct strength-formulati on from [employer] options. If intended option is not shown, [...] Status Risk Notes Problem Generalized anxiety disorder (60935535) Generalized anxiety disorder (F41.1) Active confirmed Vital Signs Temperature 98 degrees Fahrenheit 07/26/2025 Blood pressure systolic 118 mm Hg 07/26/20 25 Blood pressure diastolic 62 mm Hg 025 Heart Rate 58 /min 07/26/2025 Height 5 ft 8 in in 07/26/2025 Weight 215 lbs 07/26/2025 BMI 32.69 kg/m2 07/26/2025 Encounters Encounter Location Date Provider Diagnosis [facility] [address] [address] 07/26/2025 Darian Brunner MDS (myelodysplastic syndrome) D46.9 [...] Appt Details Follow Up: 3 Weeks, Reason: Provider Name:Darian Brunner, 08/16/2025 11:30:00 AM, [address] [place] [address], [phone], Progress Notes * lGenn MARTI BDOB:[birth year] (80 yo M)Acc No.[id number]:07/26/2025 [facility] F/U Patient: Glenn GILMORE Lucie Provider: Rossy Brunner MD :1945 A ge:80 Y S ex:Male Date:07/26/2025 Address:[address] [place] [address] , [facility] Subjective: * Chief Complaints: * 1 . [facility] hospital f/u. 2. Rash all over. [...] given 2 units of packed cells at [facility], felt better, he was initially treated [...] Diagno stic Procedure: jared ruiz , Cancer- [facility] . * Family History: F ather: [...] Provider: Rossy Brunner MD Date: Generated for Claudette hess/Vinicio/eTransmitting on: 09:26 AM EDT History and Physical Notes * [...] given 2 units of packed cells at [facility], felt better, he was initially treated [...]
[2025-08-02] VITALS (11 sets, daily range): BP systolic 111–136; BP diastolic 54–73; PULSE 72–90; RESP 18; TEMP 36.2–36.4; O2SAT 95–96
--- NOTE | 2025-08-02 09:05 | PC.NURSE ---
904-collected labs via venipuncture stick in left ac with butterfly needle;pt to wait on labs
[2025-08-02 09:15] LABS: Hematocrit 22.7 % (42.0-52.0); Hemoglobin 7.4 g/dL (14.1-18.0); Immature Granulocytes % 4.2 %; Mean Corpuscular HGB Conc 32.6 g/dL (31.8-35.4); Mean Corpuscular Hemoglobin 32.5 pg (27.0-31.2); Mean Corpuscular Volume 99.6 fl (80-94); Nucleated Red Blood Cells % 0 %; Red Blood Count 2.28 M/mm3 (4.60-6.20)
[2025-08-02 09:16] LABS: Platelet Count 21 K/mm3 (142-424); White Blood Count 1.7 K/mm3 (4.8-10.8)
--- OUTSIDE RECORDS SUMMARY | 2025-08-02 09:25 | XMS_ITS | Patient Health Record ---
Author Organization [facility] Address [address] [facility] [address] [place] [address] Care Team Providers Care Stacker And Sorter Operator Name Role Phone Darian Brunner Primary Care Provider Gemzainab Lisa Unavailable [phone] Migration, Provider Unavailable Unavailable Allergies No Known Allergies Reason For Referral No Information Medications Medication SIG (Take, Route, Frequency, Duration) Notes Start Date End Date Status Triamcinolone Acetonide 0.5 % 1 miguel a applied topically 2 times a day; Duration: 7 day(s) 07/26/2025 Active Breo Ellipta 100 MCG-25 MCG/INH 1 PUFF BY MOUTH ONCE DAILY DIRECTED; Duration: 90 DAYS *Please review and pick correct strength-formulati on from [employer] options. If intended option is not shown, discontinue and re-order from Quick Search* Active Ventolin HFA 108 (90 Base) MCG/ACT 2 puff(s) inhaled 4 times a day PRN SOA; Duration: 90 days Active Propranolol HCl 10 MG 1 tab(s) orally 2 times a day; Duration: 30 days Active Levocetirizine Dihydrochloride 5 MG 1 tab(s) orally once a day (in the evening); Duration: 90 days Active Selenium Sulfide 2.25 % 1 miguel a applied topically 2 times a week; Duration: 30 day(s) 08/20/2019 Active Tamsulosin HCl 0.4 MG 2 caps orally once a day at bedtime; Duration: 90 days Active Atorvastatin Calcium 40 MG 1 tab(s) orally once a day; Duration: 90 days Active clonazePAM 0.5 MG 1 tablet Orally Once a day; Duration: 30 days As needed at bedtime 07/26/2025 Active ICaps AREDS Formula - as directed orally; Duration: 30 day(s) Active busPIRone HCl 10 MG 1-2 orally three times a day prn anxiety; Duration: 30 days Active Procrit 3000 UNIT/ML as directed [...] times daily; Duration: 30 days 07/07/2025 Active Acyclovir 800 MG 1 tab(s) orally 3 times a day; Duration: 10 days Active Cyclobenzaprine HCl 10 MG 1 tab(s) orally every 8 hrs as needed for back spasm; Duration: 90 days 06/18/2019 Active Immunizations Vaccine Route Administration Date Status [...] Status Risk Notes Problem Generalized anxiety disorder (94770480) Generalized anxiety disorder (F41.1) Active confirmed Problem Paroxysmal atrial fibrillation (873770189) Paroxysmal atrial fibrillation (I48.0) Active confirmed Problem Essential hypertension (47728929) Essential hypertension (I10) Active confirmed Problem Inflammatory polyarthropathy (238737558) Arthritis, 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) Active confirmed Problem COPD - Chronic obstructive pulmonary disease (60173389) Chronic obstructive pulmonary disease, unspecified COPD type (J44.9) Active confirmed Problem Obese class II (829283234432342) BMI 37.0-37.9, adult (Z68.37) Active confirmed Problem Essential tremor (609602843) Benign essential tremor (G25.0) Active confirmed Problem Lower urinary tract symptoms due to benign prostatic hypertrophy (65478055145876) Benign prostatic hyperplasia with lower urinary tract symptoms, unspecified morphology (N40.1) Active confirmed Problem Contracture of palmar fascia (670671790) Dupuytren's contracture of both hands (M72.0) Active confirmed Problem Pain due to neoplastic disease (51558716661955) 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) Active confirmed Problem Myelodysplastic syndrome (555125491) 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) Active confirmed Vital Signs Heart Rate 58 /min 07/26/2025 Temperature 98 degrees Fahrenheit 07/26/2025 Blood pressure diastolic 62 mm Hg 07/26/2025 Height 5 ft 8 in in 07/26/2025 Blood pressure systolic 118 mm Hg 07/26/2025 Weight 215 lbs 07/26/2025 BMI 32.69 kg/m2 07/26/2025 Encounters Encounter Location Date Provider Diagnosis [facility] [address] [place] [address] 01/15/2025 Provider Migration Essential hypertension I10 and ADELINE (generalized anxiety disorder) F41.1 [facility] [address] [address] 12/31/2024 Lisa Robert Paroxysmal atrial fibrillation I48.0 [...] E78.2 and Arthritis, multiple joint involvement M12.[address] [address] 04/12/2025 Darian Brunner Acute non-recurrent maxillary sinusitis J01.00 ; Mixed hyperlipidemia E78.2 ; Essential (primary) hypertension I10 and MDS (myelodysplastic syndrome) D46.9 [facility] [address] [address] 06/16/2025 Darian Brunner Mechanical low back pain M54.59 ; Cancer related pain G89.3 ; Essential hypertension I10 ; ADELINE (generalized anxiety disorder) F41.1 ; MDS (myelodysplastic syndrome) D46.9 ; Routine medical exam Z00.00 and Immunization(s) administered Z23 [address] [address] 07/26/2025 Darian Brunner MDS (myelodysplastic syndrome) D46.9 ; Cancer related pain G89.3 ; Generalized anxiety disorder F41.1 ; Hospital discharge follow-up Z09 and Rash R21 [facility] [address] [place] [address] 08/02/2024 Darian Besson Cancer related pain G89.3 [facility] [address] [place] [address] 08/09/2024 Darian Besson [facility] [address] [place] [address] 09/02/2024 Darian Besson Cancer related pain G89.3 [facility] [address] [place] [address] 10/04/2024 Darian Besson Cancer related pain G89.3 [facility] [address] [place] [address] 10/11/2024 Darian Besson Seasonal allergies J30.2 [facility] [address] [place] [address] 12/17/2024 Darian Besson ADELINE (generalized anxiety disorder) F41.1 [facility] [address] [place] [address] 12/31/2024 Lisa McNees Essential hypertensi on I10 [facility] [address] [place] [address] 12/31/2024 Darian Besson [facility] [address] [place] [address] 01/25/2025 Darian Besson Cancer related pain G89.3 [facility] [address] [place] [address] 02/25/2025 Darain Besson [facility] [address] [place] [address] 03/02/2025 Darian Besson Cancer related pain G89.3 [facility] [address] [place] [address] 04/04/2025 Darian Besson Cancer related pain G89.3 [facility] [address] [place] [address] 04/05/2025 Darian Besson Cancer related pain G89.3 [facility] [address] [place] [address] 04/13/2025 Darian Besson [facility] [address] [place] [address] 05/04/2025 Darian Besson [facility] [address] [place] [address] 05/05/2025 Darian Besson Cancer related pain G89.3 [facility] [address] [place] [address] 06/06/2025 Darian Besson Cancer related pain G89.3 [facility] [address] [place] [address] 06/23/2025 Darian Besson [facility] [address] [place] [address] 07/07/2025 Darian Besson Cancer related pain G89.3 [facility] [address] [place], [place] [address] 07/14/2025 Darian Besson [facility] [address] [place] [address] 07/27/2025 Darian Besson Rash R21 Assessments Encounter Date Diagnosis (ICD [...] 07/07/2025 Cancer related pain (ICD-10 - G89.3) 07/26/2025 Cancer related pain (ICD-10 - G89.3) Continuing oxycodone, discussed with patient that he could go to 1 or 2 tablets if he needs to. 07/26/2025 MDS (myelodysplastic syndrome) (ICD-10 - D46.9) Reviewed oncology notes from last week. They are not contemplating further therapy at this point. They are watching his blood counts and giving therapeutic transfusions. Patient is a little bit confused as to why he cannot have more chemotherapy he states I have had more chemotherapy than anybody ever had. We discussed following up with heme-onc 07/27/2025 Rash (ICD-10 - R21) 07/26/2025 Generalized anxiety disorder (ICD-10 - F41.1) Will increase buspirone. I also think he needs a better night sleep. At this stage and disease I have no problem administering benzodiazepine. Will start clonazepam at night to help with sleep. We may need to increase this for anxiety also 06/16/2025 Essential hypertension (ICD-10 - I10) Pressures are good control, no change in plans 04/12/2025 Essential (primary) hypertension (ICD-10 - I10) - Well controlled - Continue amlodipine 12/31/2024 Tremor (ICD-10 - R25.1) At baseline 04/12/2025 MDS (myelodysplastic syndrome) (ICD-10 - D46.9) [...] - F41.1) Comorbidity noted. Depression screening negative 07/26/2025 Hospital discharge follow-up (ICD-10 - Z09) Personally reviewed H&P and discharge summary as available from hospital discharge documentation. Reviewed pertinent labs and test done in the hospital. Personally reconciled medication. 07/26/2025 Rash (ICD-10 - R21) 12/31/2024 Essential (primary) hypertension (ICD-10 - I10) [...] M-Lipid Panel 02/21/2023 M-PSA Total+% Free 05/31/2022 Next Appt Details Provider Name:Darian Brunner, 08/16/2025 11:30:00 AM, [address] [place] [address], [phone], Insurance Providers Payer Name Payer Address Payer Phone Subscriber Number Group Number Insured Name Patient Relationship to Insured Coverage Start Date Coverage End Date [place]ICARE [place] [address] [id number] Glenn Marti Self - patient is the insured MEDICAID EDS [address] [place] [address] [id number] Glenn Marti Self - patient is the insured [employer] [address] [place] [address] [phone] ACL Figueroa Glenn Self - patient is [...]
--- OUTSIDE RECORDS SUMMARY | 2025-08-02 09:26 | XMS_ITS | Clinical Summary ---
Author Organization [employer] ([place], [place], [place], [place]) Address [address] [place] [address] Care Team Providers Care Heat Transfer Technician Name Role Phone Darian Brunner MD Primary Care Provider + [phone] Allergies No known active allergies Medications acyclovir [...] Completed 10/24/2023, Medical Devices Implanted Type Area Supervisor Order Takers Device Identifier Shelf Expiration Date Model / Serial / Lot Iol Uv Clareon +21.0 [id number] - [id number] Implanted:Qty: 1 on 11/18/2024 by Julianna Mendez MD at [facility] IMPLANTS Right: Eye ANDRÉS 08/12/2027 [id number] / [id number] / Iol Uv Clareon +20.5 [id number] - [id number] Implanted:Qty: 1 on 12/16/2024 by Julianna Mendez MD at [facility] IMPLANTS Left: Eye ANDRÉS 09/01/2027 [id number] / [id number] / Insurance MEDICARE PART A B MEDICAID B Care Teams Heat Transfer Technician Relationship Specialty Start Date End Date Darian Brunner MD [address] [place] [address] PCP - General Adolescent Medicine 01/01/24
--- OUTSIDE RECORDS SUMMARY | 2025-08-02 09:26 | XMS_ITS | Referral Summary ---
Author Organization [employer] ([place], [place], [place], [place]) Address [address] [place] [address] Care Team Providers Care Manager Environmental Affairs Name Role Phone Darian Brunner MD Primary Care Provider + [phone] Allergies No known active allergies Medications acyclovir [...] Date Celestino rded Speak language other than Djiboutian at home Not on file 12/25/2023 Want [...] on file Medical Devices Implanted Type Area Director Human Services Device Identifier Shelf Expiration Date Model / Serial / Lot Iol Uv Jared +21.0 [id number] - [id number] Implanted:Qty: 1 on 11/18/2024 by Julianna Mendez MD at [facility] IMPLANTS Right: Eye ANDRÉS 08/12/2027 [id number] / [id number] / Iol Uv Clareon +20.5 [id number] - [id number] Implanted:Qty: 1 on 12/16/2024 by Julianna Mendez MD at [facility] IMPLANTS Left: Eye ANDRÉS 09/01/2027 [id number] / [id number] / Insurance MEDICARE PART A B MEDICAID QMB Care Teams Manager Environmental Affairs Relationship Specialty Start Date End Date Darian Brunner MD [address] [place] [address] PCP - General Adolescent Medicine 01/01/24
[2025-08-02 09:29] LABS: Chloride 104 mmol/L (98-107)
[2025-08-02 09:30] LABS: Albumin Level 3.7 g/dl (3.5-5.0); Potassium 3.8 mmoL/L (3.5-5.1); Sodium 138 mmol/L (136-145)
[2025-08-02 09:32] LABS: Blood Urea Nitrogen 25 mg/dl (9-20); Creatinine,Serum 1.20 mg/dl (0.66-1.25); Estimated Glomerular Filt Rate 58 ml/min (>60); GFR (African American) 70 ML/MIN (>60)
[2025-08-02 09:33] LABS: Alanine Aminotransferase 15 U/L (12-78); Albumin/Globulin Ratio 1.2 (1.1-1.8); Alkaline Phosphatase 118 U/L (38-126); Anion Gap 12.8 mEq/L (5-15); Aspartate Amino Transferase 25 U/L (17-59); Bilirubin,Total 0.5 mg/dl (0.2-1.3); Calcium 8.6 mg/dl (8.4-10.2); Carbon Dioxide 25 mmol/L (22.0-30.0); Globulin 3.2 g/dL (1.3-3.2); Glucose 101 mg/dl (74-100); Total Protein,Serum 6.9 g/dl (6.3-8.2)
[2025-08-02 09:49] LABS: Total Cells Counted 25
[2025-08-02 09:50] LABS: Anisocytosis 1+
--- NOTE | 2025-08-02 09:55 | PC.NURSE ---
[email or web address], ghost writer here to witness type and cross for 1 unit of prbc
[2025-08-02] MEDS: 0.9 % SODIUM CHLORIDE 250 ML 25 ML IV (11:10)
== END 2025-08-02 23:59 | disposition home or self-care (01) ==
PROVIDERS: Internal Medicine Medical Oncology; PCP Nurse Practitioner Family; Visit Provider Internal Medicine Medical Oncology
DX: D46.9 Myelodysplastic syndrome, unspecified (principal)
CPT/HCPCS: 36430; 80053; 85007; 85025; 85027; 86850; J7050; P9016

== ENCOUNTER 2025-08-16 08:57 | Outpatient (CLI) | payer MEDICARE, MEDICAID, SELFPAY ==
--- OUTSIDE RECORDS SUMMARY | 2024-11-16 07:30 | XMS_ITS ---
Author Organization [facility] PE D [facility] Address [address] [place] [address] Care Team Providers Care Annealing Oven Operator Name Role Phone Darian Brunner Primary Care Provider REASON FOR VISIT [facility] Encounters Encounter Location Date Provider Diagnosis [place] [address] [address] 11/16/2024 Darian Brunner Plan Of Treatment No Information Progress Notes * Glenn MARTI BDOB:[birth year] (80 yo M)Acc No.[id number]:11/16/2024 HOSP F/U Patient: Theresa PACK Glenn Faulkner Provider: Rossy Brunner MD :1945 A ge:79 Y S ex:Male Date:11/16/2024 Address:[address], [id number] Subjective: * Chief Complaints: * 1 . [facility]. * Medical History: Objective: * Vitals: Assessment: Plan: * Treatment: * * Electronic signature of Vasyl Brunner MD FAAP on 08/16/2025 at 09:02 AM EST Sign off status: Pending * Provider: Rossy Brunner MD Date: 0 11/16/2024 Generated for Printi ng/Faxing/eTransmitting on: 1 10/16/2024 09:02 AM EST
--- OUTSIDE RECORDS SUMMARY | 2025-01-15 16:30 | XMS_ITS ---
Author Organization [facility] Address [address] [place] [address] Care Team Providers Care Insulation Extruder Operator Name Role Phone Darian Brunner Primary Care Provider Migration, Provider Unavailable Unavailable REASON FOR VISIT [facility] Encounter Medications Medication SIG [...] Active Encounters Encounter Location Date Provider Diagnosis [facility] [address] [facility] [address] [place] [address] 01/15/2025 Provider Migration Essential hypertension I10 and [...] Glenn MARTI BDOB:[birth year] (80 yo M)Acc No.[id number]:01/15/2025 Patient: Glenn GILMORE Provider: Caroline White :1945 A ge:79 Y S ex:Male Date:01/15/2025 Address:[facility] [address], [place], [id number] Pcp:Darian Brunner Subjective: * Chief Complaints: * 1 . [facility]. * Medical History: * [...] *Please review and pick correct strength-formulation from [facility] options. If intended option is [...] Electronic signature of Prov ider Migration on 08/16/2025 at 09:03 AM EST Sign off status: Pending * Provider: Caroline cedeño Migration Date: 0 01/15/2025 Generated for Claudette hess/Vinicio/Janineitting on: 1 10/16/2024 09:03 AM EST
--- OUTSIDE RECORDS SUMMARY | 2025-04-08 06:45 | XMS_ITS ---
Author Organization [facility] Address [address] [place] [address] Care Team Providers Care Locomotive Crane Engineer Name Role Phone Darian Brunner Primary Care Provider Lisa Jones Unavailable [phone] REASON FOR VISIT med ck Encounters Encounter Location Date Provider Diagnosis [address] [address] 04/08/2025 Lisa Jones Plan Of Treatment No Information Progress Notes * Glenn MARTI BDOB:[birth year] (80 yo M)Acc No.[id number]:04/08/2025 Progress Notes Patient: Theresa PACK Glenn Faulkner Provider: Theresa Jones APRN :1945 A ge:79 Y S ex:Male Date:04/08/2025 Address:[address] [id number] Pcp:Darian Brunner Subjective: * Chief Complaints: * 1 . Med ck. * Medical History: Objective: * Vitals: Assessment: Plan: * Treatment: * * Electronic signature of Leni Jones APRN on 08/16/2025 at 09:02 AM EST Sign off status: Pending * Provider: Theresa Jones APRN Date: 0 04/08/2025 Generated for Printi ng/Faxing/eTransmitting on: 1 10/16/2024 09:02 AM EST
--- OUTSIDE RECORDS SUMMARY | 2025-06-30 06:15 | XMS_ITS ---
Author Organization [facility] PE D CATAR[place] Address [address] [place] [address] Care Team Providers Care Tripe Washer Name Role Phone Darian Brunner Primary Care Provider REASON FOR VISIT 2 weeks, ED FU d/c 06/22/2025 Encounters Encounter Location Date Provider Diagnosis [address] [address] 06/30/2025 Darian Brunner Plan Of Treatment No Information Progress Notes * Glenn MARTI BDOB:[birth year] (80 yo M)Acc No.[id number]:06/30/2025 Progress Notes Patient: Glenn GILMORE Lucie Provider: Rossy Brunner MD :1945 A ge:80 Y S ex:Male Date:06/30/2025 Address:[facility] [address], [place], [id number] Subjective: * Chief Complaints: * 1 . 2 weeks, ED FU d/c 06/22/2025. * Medical History: Objective: * Vitals: Assessment: Plan: * Treatment: * * Electronic signature of Vasyl Brunner MD FAAP on 08/16/2025 at 09:01 AM EST Sign off status: Pending * Provider: Rossy Brunner MD Date: 0 06/30/2025 Generated for Printi ng/Faxing/eTransmitting on: 1 10/16/2024 09:01 AM EST
--- OUTSIDE RECORDS SUMMARY | 2025-07-21 06:45 | XMS_ITS ---
Author Organization [facility] Address [address] [place] [address] Care Team Providers Care Buyer Liaison Name Role Phone Darian Brunner Primary Care Provider REASON FOR VISIT [facility] D/C 07/14/2025 Encounters Encounter Location Date Provider Diagnosis [address] [address] 07/21/2025 Darian Brunner Plan Of Treatment No Information Progress Notes * Glenn MARTI BDOB:[birth year] (80 yo M)Acc No.[id number]:07/21/2025 HOSP F/U Patient: Glenn GILMORE Lucie Provider: Rossy Brunner MD :1945 A ge:80 Y S ex:Male Date:07/21/2025 Address:[place] [address] [phone] Subjective: * Chief Complaints: * 1 . [facility] D/C 07/14/2025. * Medical History: Objective: * Vitals: Assessment: Plan: * Treatment: * * Electronic signature of Vasyl Brunner MD FAAP on 08/16/2025 at 09:01 AM EST Sign off status: Pending * Provider: Rossy Brunner MD Date: 1 Generated for Printi ng/Faxing/eTransmitting on: 10/16/2024 09:01 AM EST
--- OUTSIDE RECORDS SUMMARY | 2025-07-26 07:15 | XMS_ITS ---
Author Organization [facility] Address [address] [facility] [address] [place] [address] Care Team Providers Care Call Or Contact Centre Manager Name Role Phone Darian Brunner Primary Care Provider Allergies No Known Allergies REASON FOR VISIT [facility] hospital f/u, rash all over, anxiety Medications Medication SIG (Take, Route, Frequency, Duration) Notes Start Date End Date Status Triamcinolone Acetonide 0.5 % 1 miguel a applied topically 2 times a day; Duration: 7 day(s) 07/26/2025 Active clonazePAM 0.5 MG 1 tablet Orally Once a day; Duration: 30 days As needed at bedtime 07/26/2025 Active busPIRone HCl 10 MG 1-2 orally three times a day prn anxiety; Duration: 30 days Active oxyCODONE-Acetaminophen 10-325 MG 1 tab(s) orally three times daily; Duration: 30 days 07/07/2025 Active Cyclobenzaprine HCl 10 MG 1 tab(s) orally every 8 hrs as needed for back spasm; Duration: 90 days 06/18/2019 Active Ventolin HFA 108 (90 Base) MCG/ACT 2 puff(s) inhaled 4 times a day PRN SOA; Duration: 90 days Active Levocetirizine Dihydrochloride 5 MG 1 tab(s) orally once a day (in the evening); Duration: 90 days Active Tamsulosin HCl 0.4 MG 2 caps orally once a day at bedtime; Duration: 90 days Active Atorvastatin Calcium 40 MG 1 tab(s) orally once a day; Duration: 90 days Active Meloxicam 15 MG 1 tab(s) orally once a day; Duration: 90 days Active Escitalopram Oxalate 20 MG 1 tab(s) orally once a day; Duration: 90 days Active Omeprazole Magnesium 20 MG 1 cap(s) orally once a day; Duration: 90 days Active amLODIPine Besylate 5 MG 1 tab(s) orally once a day; Duration: 90 days Active Fluticasone Propionate 50 MCG/ACT 1 spray(s) in each nostril once a day; Duration: 90 days Active Acyclovir 800 MG 1 tab(s) orally 3 times a day; Duration: 10 days Active Breo Ellipta 100 MCG-25 MCG/INH 1 PUFF BY MOUTH ONCE DAILY DIRECTED; Duration: 90 DAYS *Please review and pick correct strength-formulati on from [employer] options. 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 Problems Problem Type SNOMED Code ICD Code Onset Dates Problem Status W/U Status Risk Notes Problem Generalized anxiety disorder (00986987) Generalized anxiety disorder (F41.1) Active confirmed Vital Signs Temperature 98 degrees Fahrenheit 07/26/2025 Blood pressure systolic 118 mm Hg 07/26/20 25 Blood pressure diastolic 62 mm Hg 025 Heart Rate 58 /min 07/26/2025 Height 5 ft 8 in in 07/26/2025 Weight 215 lbs 07/26/2025 BMI 32.69 kg/m2 07/26/2025 Encounters Encounter Location Date Provider Diagnosis [facility] [address] [address] 07/26/2025 Darian Brunner MDS (myelodysplastic syndrome) D46.9 ; Cancer related pain G89.3 ; Generalized anxiety disorder F41.1 ; Hospital discharge follow-up Z09 and Rash R21 Assessments Encounter Date Diagnosis (ICD Code) Assessment Notes Treatment Notes Treatment Clinical Notes Section Notes 07/26/2025 MDS (myelodysplastic syndrome) (ICD-10 - D46.9) Reviewed oncology notes from last week. They are not contemplating further therapy at this point. They are watching his blood counts and giving therapeutic transfusions. Patient is a little bit confused as to why he cannot have more chemotherapy he states I have had more chemotherapy than anybody ever had. We discussed following up with heme-onc 07/26/2025 Cancer related pain (ICD-10 - G89.3) Continuing oxycodone, discussed with patient that he could go to 1 or 2 tablets if he needs to. 07/26/2025 Generalized anxiety disorder (ICD-10 - F41.1) Will increase buspirone. I also think he needs a better night sleep. At this stage and disease I have no problem administering benzodiazepine. Will start clonazepam at night to help with sleep. We may need to increase this for anxiety also 07/26/2025 Hospital discharge follow-up (ICD-10 - Z09) Personally reviewed H&P and discharge summary as available from hospital discharge documentation. Reviewed pertinent labs and test done in the hospital. Personally reconciled medication. 07/26/2025 Rash (ICD-10 - R21) Plan Of Treatment Medication Medication Name Sig Start Date Stop Date Notes Triamcinolone Acetonide 0.5 % 1 miguel a appl ied topically 2 times a day; Duration: 7 day(s) 07/26/2025 clonazePAM 0.5 MG 1 tablet Orally Once a day; Duration: 30 days 07/26/2025 busPIRone HCl 10 MG 1-2 orally three alexandru es a day prn anxiety; Duration: 30 days Treatment Notes Assessment Notes MDS (myelodysplastic syndrome) Reviewed oncology notes from last week. They are not contemplating further therapy at this point. They are watching his blood counts and giving therapeutic transfusions. Patient is a little bit confused as to why he cannot have more chemotherapy he states I have had more chemotherapy than anybody ever had. We discussed following up with heme-onc Cancer related pain Continuing oxycodone , discussed with patient that he could go to 1 or 2 tablets if he needs to. Generalized anxiety disorder Will increase buspirone. I also think he needs a better night sleep. At this stage and disease I have no problem administering benzodiazepine. Will start clonazepam at night to help with sleep. We may need to increase this for anxiety also Hospital discharge follow-up Personally reviewed H&P and discharge summary as available from hospital discharge documentation. Reviewed pertinent labs and test done in the hospital. Personally reconciled medication. Next Appt Details Follow Up: 3 Weeks, Reason: Progress Notes * Glenn MARTI BDOB:[birth year] (80 yo M)Acc No.[id number]:07/26/2025 HOSP F/U Patient: Glenn GILMORE Provider: Rossy Brunner MD :1945 A ge:80 Y S ex:Male Date:07/26/2025 Address:[address] [place] [address] , [place], [id number] Subjective: * Chief Complaints: * 1 . [facility] hospital f/u. 2. Rash all over. 3. Anxiety. * HPI: I ntrim History: Transition of care visit from hospital D ate of admission to hospital: 0 07/12/2025, D ate of receipt of hospital admission report: 1 ,?Date of discharge from hospital: 1 , D ate of receipt of hospital discharge summary: 1 , D ischarge medications reviewed and reconciled from hospital: M edications left unchanged. Here for hospital discharge follow-up/transitional care visit as well as follow-up of his medical problems. He was hospitalized on the above dates for severe anemia with possible neutropenic fever. Was given 2 units of packed cells at [facility], felt better, he was initially treated with antibiotics and antifungals but significant side effects were noted. He was maintained on valacyclovir because of possible shingles. He has a lot of rashes around his hands and feet that he is concerned about. Overall he is also concerned about his pain management, occasionally takes 2 of his oxycodone because of his cancer related pain. Also worried about anxiety. He is unable to do a lot of things around the house because he gets very nervous and his hands shake. His girlfriend has bumped up his buspirone to 2 tablets which seems to help but he does not sleep well. * Medical History: B PH, Renal stones, Former smoker, ETOh abuse, Dupytren's contracture bilat palms, Seborrheic dermatitis, HTN, HLD, Anxiety, Spermatocele, bilat. * Surgical History: D enies Past Surgical History. * Hospitalization/Major Diagno stic Procedure: jared ruiz , Cancer- [facility] . * Family History: F [...] *Please review and pick correct strength-formulation from [employer] options. If intended option is not shown, [...] 1 tab(s) orally three times daily , Medication List reviewed and reconciled with the patient * Allergies: N .K.D.A. Objective: * Vitals: N urse: dw, Pain: 0, Temp: 98, RR: 16, HR: 58, BP: 118/62, Ht: 5 ft 8 in, Wt: 215, BMI:32.69. * Examination: G eneral Examination: Tunde carmona talkative, very focused on his previous good pain tolerance but now his current pain. Ruminates about his skin lesions. Feels very tired. Very nervous appearing. Lungs have good air movement, heart rate regular. He has scattered rashes on his hands and feet that are very unusual and nonspecific but seem to be related to vasculitis type irritation and circular patterns on the dorsum of his toes. Assessment: * Assessment: 1. M DS (myelodysplastic syndrome) - D46.9 (Primary) 2 . C ancer related pain - G89.3 3 . G eneralized anxiety disorder - F41.1 4 . H ospital discharge follow-up - Z09 5 . R latrice - R21 Plan: * Treatment: 2. C ancer related pain Notes: Continuing oxycodone, discussed with patient that he could go to 1 or 2 tablets if he needs to. 3. G eneralized anxiety disorder Refill busPIRone HCl Tablet, 10 MG, 1-2, orally, three times a day prn anxiety, 30 days, 90, Refills 3; S tart clonazePAM Tablet, 0.5 MG, 1 tablet, Orally, Once a day As needed at bedtime, 30 days, 30 Tablet, Refills 1. Notes: Will increase buspirone. I also think he needs a better night sleep. At this stage and disease I have no problem administering benzodiazepine. Will start clonazepam at night to help with sleep. We may need to increase this for anxiety also 4. H ospital discharge follow-up Notes: Personally reviewed H&P and discharge summary as available from hospital discharge documentation. Reviewed pertinent labs and test done in the hospital. Personally reconciled medication. 5. R latrice Start Triamcinolone Acetonide Ointment, 0.5 %, 1 miguel a, applied topically, 2 times a day, 7 day(s), 80 gm, Refills 2. * Procedure Codes: 9 9495 TRANS CARE MGMT 14 DAY DISCH, Modifiers: 25 , 1111F DSCHR MED/CURENT MED MERGE * Follow Up: 3 Weeks * * Sign off status: Completed true * Provider: Rossy Brunner MD Date: 1 Generated for Keltoni jimena/Vinicio/eTransmitting on: 10/16/2024 09:01 AM EST History and Physical Notes * HPI (History of Present Illness) Category Sub-Category Detail Notes Category Not es Intrim History Transition of care visit from hospital Date of admission to hospital:: 07/12/2025 Here for hospital discharge follow-up/transitional care visit as well as follow-up of his medical problems. He was hospitalized on the above dates for severe anemia with possible neutropenic fever. Was given 2 units of packed cells at [facility], felt better, he was initially treated with antibiotics and antifungals but significant side effects were noted. He was maintained on valacyclovir because of possible shingles. He has a lot of rashes around his hands and feet that he is concerned about. Overall he is also concerned about his pain management, occasionally takes 2 of his oxycodone because of his cancer related pain. Also worried about anxiety. He is unable to do a lot of things around the house because he gets very nervous and his hands shake. His girlfriend has bumped up his buspirone to 2 tablets which seems to help but he does not sleep well. Date of receipt of hospital admission re port:: 07/13/2025 Date of discharge from hospital:: 2024 Date of receipt of hospital discharge tobias mmary:: 07/15/2025 Discharge medications review ed and reconciled from hospital:: Medications left unchanged Examination Category Sub-Category Detail Notes Category Not es General Examination Very talkative, very focused on his previous good pain tolerance but now his current pain. Ruminates about his skin lesions. Feels very tired. Very nervous appearing. Lungs have good air movement, heart rate regular. He has scattered rashes on his hands and feet that are very unusual and nonspecific but seem to be related to vasculitis type irritation and circular patterns on the dorsum of his toes
--- OUTSIDE RECORDS SUMMARY | 2025-08-16 09:03 | XMS_ITS | Patient Health Record ---
Author Organization [facility] Address [address] [facility] [address] [place] [address] Care Team Providers Care Tipple Supervisor Name Role Phone Darian Brunner Primary Care Provider [phone] Gemzainab Lisa Unavailable [phone] Migration, Provider Unavailable Unavailable Allergies No Known Allergies Reason For Referral No Information Medications Medication SIG (Take, Route, Frequency, Duration) Notes Start Date End Date Status Omeprazole Magnesium 20 MG 1 cap(s) orally once a day; Duration: 90 days Active oxyCODONE-Acetaminophen 10-325 MG 1 tab(s) orally three times daily; Duration: 30 days 08/08/2025 Active Triamcinolone Acetonide 0.5 % 1 miguel a applied topically 2 times a day; Duration: 7 day(s) 07/26/2025 Active Breo Ellipta 100 MCG-25 MCG/INH 1 PUFF BY MOUTH ONCE DAILY DIRECTED; Duration: 90 DAYS *Please review and pick correct strength-formulati on from [employer] options. 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) Active confirmed Problem COPD - Chronic obstructive pulmonary disease (13220965) Chronic obstructive pulmonary disease, unspecified COPD type (J44.9) Active confirmed Problem Obese class II (425563244270015) BMI 37.0-37.9, adult (Z68.37) Active confirmed Problem Essential tremor (328284106) Benign essential tremor (G25.0) Active confirmed Problem Lower urinary tract symptoms due to benign prostatic hypertrophy (47807893527550) Benign prostatic hyperplasia with lower urinary tract symptoms, unspecified morphology (N40.1) Active confirmed Problem Contracture of palmar fascia (421146871) Dupuytren's contracture of both hands (M72.0) Active confirmed Problem Pain due to neoplastic disease (76196198930924) 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) Active confirmed Problem Myelodysplastic syndrome (489968982) 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) Active confirmed Vital Signs Heart Rate 58 /min 07/26/2025 Temperature 98 degrees Fahrenheit 07/26/2025 Blood pressure diastolic 62 mm Hg 07/26/2025 Height 5 ft 8 in in 07/26/2025 Blood pressure systolic 118 mm Hg 07/26/2025 Weight 215 lbs 07/26/2025 BMI 32.69 kg/m2 07/26/2025 Encounters Encounter Location Date Provider Diagnosis [facility] [address] [place] [address] 01/15/2025 Provider Migration Essential hypertension I10 and ADELINE (generalized anxiety disorder) F41.1 [facility] [address] [address] 12/31/2024 Lisa Robert Paroxysmal atrial fibrillation I48.0 [...] E78.2 and Arthritis, multiple joint involvement M12.[address] [address] 04/12/2025 Darian Brunner Acute non-recurrent maxillary sinusitis J01.00 ; Mixed hyperlipidemia E78.2 ; Essential (primary) hypertension I10 and MDS (myelodysplastic syndrome) D46.9 [facility] [address] [address] 06/16/2025 Darian Brunner Mechanical low back pain M54.59 ; Cancer related pain G89.3 ; Essential hypertension I10 ; ADELINE (generalized anxiety disorder) F41.1 ; MDS (myelodysplastic syndrome) D46.9 ; Routine medical exam Z00.00 and Immunization(s) administered Z23 [address] [address] 07/26/2025 Darian Brunner MDS (myelodysplastic syndrome) D46.9 ; Cancer related pain G89.3 ; Generalized anxiety disorder F41.1 ; Hospital discharge follow-up Z09 and Rash R21 [facility] [address] [place] [address] 09/02/2024 Darian Besson Cancer related pain G89.3 [facility] [address] [place] [address] 10/04/2024 Darian Besson Cancer related pain G89.3 [facility] [address] [place] [address] 10/11/2024 Darian Besson Seasonal allergies J30.2 [facility] [address] [place] [address] 12/17/2024 Darian Besson ADELINE (generalized anxiety disorder) F41.1 [facility] [address] [place] [address] 12/31/2024 Lisa McNees Essential hypertensi on I10 [facility] [address] [place] [address] 12/31/2024 Darian Besson [facility] [address] [place] [address] 01/25/2025 Darian Besson Cancer related pain G89.3 [facility] [address] [place] [address] 02/25/2025 Darian Besson [facility] [address] [place] [address] 03/02/2025 Darian Besson Cancer related pain G89.3 [facility] [address] [place] [address] 04/04/2025 Darian Besson Cancer related pain G89.3 [facility] [address] [place] [address] 04/05/2025 Darian Besson Cancer related pain G89.3 [facility] [address] [place] [address] 04/13/2025 Darian Besson [facility] [address] [place] [address] 05/04/2025 Darian Besson [facility] [address] [place] [address] 05/05/2025 Darian Besson Cancer related pain G89.3 [facility] [address] [place] [address] 06/06/2025 Darian Besson Cancer related pain G89.3 [facility] [address] [place] [address] 06/23/2025 Darian Besson [facility] [place] [address] [facility] [address] [place] [address] 07/07/2025 Darian Besson Cancer related pain G89.3 [facility] [address] [place] [address] 07/14/2025 Darian Besson [facility] [place] [address] [place] [address] 07/27/2025 Darian Besson Rash R21 [facility] [place] [address] [place] [address] 08/08/2025 Darian Besson Cancer related pain G89.3 [facility] [address] [place] [address] 08/15/2025 Darian Besson Assessments Encounter Date Diagnosis (ICD Code) Assessment Notes Treatment Notes Treatment Clinical Notes Section Notes 09/02/2024 Cancer related pain (ICD-10 - G89.3) [...] with heme-onc 07/27/2025 Rash (ICD-10 - R21) 08/08/2025 Cancer related pain (ICD-10 - G89.3) 07/26/2025 Generalized anxiety disorder (ICD-10 - F41.1) [...] done in the hospital. Personally reconciled medication. 12/31/2024 Essential (primary) hypertension (ICD-10 - I10) Blood pressure at goal 06/16/2025 MDS (myelodysplastic syndrome) (ICD-10 - D46.9) Follows with hematology/oncolog y. On appropriate medication and follows with them on a regular basis 07/26/2025 Rash (ICD-10 - R21) 06/16/2025 Routine medical exam (ICD-10 - Z00.00) [...] End Date MEDICARE [place] [address] [id number] Glenn Marti Self - patient is the insured MEDICAID EDS [address] [place] [id number] Glenn Marti Self - patient is the insured [employer] [address] [place] [address] ACL Glenn Marti Self - patient is [...]
[2025-08-16 09:27] LABS: Hematocrit 26.4 % (42.0-52.0); Hemoglobin 8.5 g/dL (14.1-18.0); Immature Granulocytes % 0.9 %; Mean Corpuscular HGB Conc 32.2 g/dL (31.8-35.4); Mean Corpuscular Hemoglobin 32.9 pg (27.0-31.2); Mean Corpuscular Volume 102.3 fl (80-94); Nucleated Red Blood Cells % 0 %; Red Blood Count 2.58 M/mm3 (4.60-6.20)
[2025-08-16 09:29] LABS: Platelet Count 14 K/mm3 (142-424); White Blood Count 1.1 K/mm3 (4.8-10.8)
[2025-08-16 09:32] LABS: Alanine Aminotransferase 18 U/L (12-78); Albumin Level 4.2 g/dl (3.5-5.0); Albumin/Globulin Ratio 1.2 (1.1-1.8); Alkaline Phosphatase 90 U/L (38-126); Anion Gap 10.5 mEq/L (5-15); Aspartate Amino Transferase 45 U/L (17-59); Bilirubin,Total 1.0 mg/dl (0.2-1.3); Blood Urea Nitrogen 28 mg/dl (9-20); Calcium 8.8 mg/dl (8.4-10.2); Carbon Dioxide 23 mmol/L (22.0-30.0); Chloride 108 mmol/L (98-107); Creatinine,Serum 1.10 mg/dl (0.66-1.25); Estimated Glomerular Filt Rate 64 ml/min (>60); GFR (African American) 78 ML/MIN (>60); Globulin 3.5 g/dL (1.3-3.2); Glucose 112 mg/dl (74-100); Potassium 4.5 mmoL/L (3.5-5.1); Sodium 137 mmol/L (136-145); Total Protein,Serum 7.7 g/dl (6.3-8.2)
[2025-08-16 11:22] LABS: Macrocytosis 1+; Poikilocytosis 1+; Total Cells Counted 25
== END 2025-08-16 23:59 | disposition home or self-care (01) ==
PROVIDERS: Internal Medicine Medical Oncology; PCP Nurse Practitioner Family; Visit Provider Internal Medicine Medical Oncology
DX: D46.9 Myelodysplastic syndrome, unspecified (principal)
CPT/HCPCS: 36415; 80053; 85007; 85025

== ENCOUNTER 2025-08-23 08:50 | Outpatient (CLI) | payer MEDICARE, MEDICAID, SELFPAY ==
--- OUTSIDE RECORDS SUMMARY | 2024-11-16 07:30 | XMS_ITS ---
Author Organization [facility] PE D [facility] Address [address] [place] [address] Care Team Providers Care Cash Clerk Name Role Phone Darian Brunner Primary Care Provider REASON FOR VISIT [facility] Encounters Encounter Location Date Provider Diagnosis [place] [address] [address] 11/16/2024 Darian Brunner Plan Of Treatment No Information Progress Notes * Glenn MARTI BDOB:[birth year] (80 yo M)Acc No.[id number]:11/16/2024 HOSP F/U Patient: Theresa PACK Glenn Faulkner Provider: Rossy Brunner MD :1945 A ge:79 Y S ex:Male Date:11/16/2024 Address:[address], [id number] Subjective: * Chief Complaints: * 1 . [facility]. * Medical History: Objective: * Vitals: Assessment: Plan: * Treatment: * * Electronic signature of Vasyl Brunner MD FAAP on 08/23/2025 at 08:55 AM EST Sign off status: Pending * Provider: Rossy Brunner MD Date: 0 11/16/2024 Generated for Printi ng/Faxing/eTransmitting on: 1 10/23/2024 08:55 AM EST
--- OUTSIDE RECORDS SUMMARY | 2025-01-15 16:30 | XMS_ITS ---
Author Organization [facility] Address [address] [place] [address] Care Team Providers Care Director Of Restaurants Name Role Phone Darian Brunner Primary Care Provider Migration, Provider Unavailable Unavailable REASON FOR VISIT [facility] Encounter Medications Medication SIG (Take, [...] Center P[facility] [address] [facility] [address] [place] [address] 01/15/2025 Provider Migration Essential hypertension I10 and [...] Glenn MARTI BDOB:[birth year] (80 yo M)Acc No.[id number]:01/15/2025 Patient: Glenn GILMORE Provider: Caroline White :1945 A ge:79 Y S ex:Male Date:01/15/2025 Address:[facility] [address], [place], [id number] Pcp:Darian Brunner Subjective: * Chief Complaints: * [facility] . [facility] * Medical History: * Medications: [...] *Please review and pick correct strength-formulation [facility] options. If intended option is not [...] Electronic signature of Prov ider Migration on 08/23/2025 at 08:55 AM EST Sign off status: Pending * Provider: Caroline cedeño Migration Date: 0 01/15/2025 Generated for Claudette hess/Vinicio/Janineitting on: 1 10/23/2024 08:55 AM EST
--- OUTSIDE RECORDS SUMMARY | 2025-04-08 06:45 | XMS_ITS ---
Author Organization [facility] Address [address] [place] [address] Care Team Providers Care Community Relations Representative Name Role Phone Darian Brunner Primary Care Provider [phone] Lisa Jones Unavailable [phone] REASON FOR VISIT med ck Encounters Encounter Location Date Provider Diagnosis [address] [address] 04/08/2025 Lisa Jones Plan Of Treatment No Information Progress Notes * Glenn MARTI BDOB:[birth year] (80 yo M)Acc No.[id number]:04/08/2025 Progress Notes Patient: Theresa PACK Glenn Faulkner Provider: Theresa Jones APRN :1945 A ge:79 Y S ex:Male Date:04/08/2025 Address[address] [id number] Pcp:Darian Brunner Subjective: * Chief Complaints: * 1 . Med ck. * Medical History: Objective: * Vitals: Assessment: Plan: * Treatment: * * Electronic signature of Leni Jones APRN on 08/23/2025 at 08:55 AM EST Sign off status: Pending * Provider: Theresa Jones APRN Date: 0 04/08/2025 Generated for Printi ng/Faxing/eTransmitting on: 1 10/23/2024 08:55 AM EST
--- OUTSIDE RECORDS SUMMARY | 2025-06-30 06:15 | XMS_ITS ---
Author Organization [facility] PE D CATARINA Address [address] [place] [address] Care Team Providers Care Licensed Psychologist Manager Name Role Phone Darian Brunner Primary Care Provider [phone] REASON FOR VISIT 2 weeks, ED FU d/c 06/22/2025 Encounters Encounter Location Date Provider Diagnosis [address] [address] 06/30/2025 Darian Brunner Plan Of Treatment No Information Progress Notes * Glenn MARTI BDOB:[birth year] (80 yo M)Acc No.[id number]:06/30/2025 Progress Notes Patient: Glenn GILMORE Lucie Provider: Rossy Brunner MD :1945 A ge:80 Y S ex:Male Date:06/30/2025 Address:[facility] [address], [place], [id number] Subjective: * Chief Complaints: * 1 . 2 weeks, ED FU d/c 06/22/2025. * Medical History: Objective: * Vitals: Assessment: Plan: * Treatment: * * Electronic signature of Vasyl Brunner MD FAAP on 08/23/2025 at 08:54 AM EST Sign off status: Pending * Provider: Rossy Brunner MD Date: 0 06/30/2025 Generated for Printi ng/Faxing/eTransmitting on: 1 10/23/2024 08:54 AM EST
--- OUTSIDE RECORDS SUMMARY | 2025-07-21 06:45 | XMS_ITS ---
Author Organization [facility] [place] Address [address] [place] [address] Care Team Providers Care Medical Dosimetrist Name Role Phone Darian Brunner Primary Care Provider REASON FOR VISIT [facility] D/C 07/14/2025 Encounters Encounter Location Date Provider Diagnosis [address] [address] 07/21/2025 Darian Brunner Plan Of Treatment No Information Progress Notes * Glenn MARTI BDOB:[birth year] (80 yo M)Acc No.[id number]:07/21/2025 HOSP F/U Patient: Glenn GILMORE Lucie Provider: Rossy Brunner MD :1945 A ge:80 Y S ex:Male Date:07/21/2025 Address:[facility] [address] [phone] Subjective: * Chief Complaints: * 1 . [facility] D/C 07/14/2025. * Medical History: Objective: * Vitals: Assessment: Plan: * Treatment: * * Electronic signature of Vasyl Brunner MD FAAP on 08/23/2025 at 08:54 AM EST Sign off status: Pending * Provider: Rossy Brunner MD Date: 1 Generated for Printi ng/Faxing/eTransmitting on: 10/23/2024 08:54 AM EST
--- OUTSIDE RECORDS SUMMARY | 2025-07-26 07:15 | XMS_ITS ---
Author Organization [facility] Address [address] [facility] [address] [place] [address] Care Team Providers Care Luncheonette Operator Name Role Phone Darian Brunner Primary Care Provider [phone] Allergies No Known Allergies REASON FOR VISIT [facility] hospital f/u, rash all over, anxiety Medications [...] review and pick correct strength-formulati on from [employer] options. If intended option is not shown, [...] Status Risk Notes Problem Generalized anxiety disorder (30209541) Generalized anxiety disorder (F41.1) Active confirmed Vital Signs Temperature 98 degrees Fahrenheit 07/26/2025 Blood pressure systolic 118 mm Hg 07/26/20 25 Blood pressure diastolic 62 mm Hg 025 Heart Rate 58 /min 07/26/2025 Height 5 ft 8 in in 07/26/2025 Weight 215 lbs 07/26/2025 BMI 32.69 kg/m2 07/26/2025 Encounters Encounter Location Date Provider Diagnosis [facility] [address] [address] 07/26/2025 Darian Brunner MDS (myelodysplastic syndrome) D46.9 [...] Glenn MARTI BDOB:[birth year] (80 yo M)Acc No.[id number]:07/26/2025 HOSP F/U Patient: Glenn GILMORE Provider: Rossy Brunner MD :1945 A ge:80 Y S ex:Male Date:07/26/2025 Address:[address] [place] [address] , [place], [id number] Subjective: * Chief Complaints: * 1 . [facility] hospital f/u. 2. Rash all over. 3. [...] given 2 units of packed cells at [facility], felt better, he was initially treated with [...] Procedure: jared ruiz , Cancer- [facility] . * Family History: F ather: [...] *Please review and pick correct strength-formulation from [employer] options. If intended option is not shown, [...] Brunner MD Date: 1 Generated for Keltoni ng/Vinicio/eTransmitting on: 10/23/2024 08:55 AM EST History and Physical Notes * [...] given 2 units of packed cells at [facility], felt better, he was initially treated with [...]
--- OUTSIDE RECORDS SUMMARY | 2025-08-16 06:30 | XMS_ITS ---
Author Organization [facility] Address [address] [place] [address] Care Team Providers Care Grassroots Organizer Name Role Phone Darian Brunner Primary Care Provider REASON FOR VISIT 3 week fu Encounters Encounter Location Date Provider Diagnosis [address] [address] 08/16/2025 Darian Brunner Plan Of Treatment No Information Progress Notes * Glenn MARTI BDOB:[birth year] (80 yo M)Acc No.[id number]:08/16/2025 Progress Notes Patient: Glenn GILMROE Provider: Rossy Brunner MD :1945 A ge:80 Y S ex:Male Date:08/16/2025 Address:[facility] [address] [id number] Subjective: * Chief Complaints: * 1 . 3 week fu. * Medical History: Objective: * Vitals: Assessment: Plan: * Treatment: * * Electronic signature of Vasyl Brunner MD FAAP on 08/23/2025 at 08:55 AM EST Sign off status: Pending * Provider: Rossy Brunner MD Date: 10/16/2024 Generated for Printi ng/Faxing/eTransmitting on: 10/23/2024 08:55 AM EST
[2025-08-23] VITALS (19 sets, daily range): BP systolic 122–154; BP diastolic 52–69; PULSE 72–84; RESP 18–20; TEMP 36.9–37.2; O2SAT 98–99
--- OUTSIDE RECORDS SUMMARY | 2025-08-23 08:55 | XMS_ITS | Patient Health Record ---
Author Organization [facility] Address [address] [facility] [address] [place] [address] Care Team Providers Care Diagnostics Tech Name Role Phone Darian Brunner Primary Care Provider GemLisa lamb Unavailable [phone] Migration, Provider Unavailable Unavailable Allergies No Known [...] review and pick correct strength-formulati on from Multiplyan options. 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) Active confirmed Problem COPD - Chronic obstructive pulmonary disease (71350582) Chronic obstructive pulmonary disease, unspecified COPD type (J44.9) Active confirmed Problem Obese class II (795562296669128) BMI 37.0-37.9, adult (Z68.37) Active confirmed Problem Essential tremor (900825623) Benign essential tremor (G25.0) Active confirmed Problem Lower urinary tract symptoms due to benign prostatic hypertrophy (32629913347572) Benign prostatic hyperplasia with lower urinary tract symptoms, unspecified morphology (N40.1) Active confirmed Problem Contracture of palmar fascia (725891719) Dupuytren's contracture of both hands (M72.0) Active confirmed Problem Pain due to neoplastic disease (63187550518128) 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) Active confirmed Problem Myelodysplastic syndrome (338573982) 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) Active confirmed Vital Signs Heart Rate 58 /min 07/26/2025 Temperature 98 degrees Fahrenheit 07/26/2025 Blood pressure diastolic 62 mm Hg 07/26/2025 Height 5 ft 8 in in 07/26/2025 Blood pressure systolic 118 mm Hg 07/26/2025 Weight 215 lbs 07/26/2025 BMI 32.69 kg/m2 07/26/2025 Encounters Encounter Location Date Provider Diagnosis [facility] [place] [address] [place] [address] 01/15/2025 Provider Migration Essential hypertension I10 and ADELINE (generalized anxiety disorder) F41.1 [facility] [address] [address] 12/31/2024 Lisa Robert Paroxysmal atrial fibrillation I48.0 [...] E78.2 and Arthritis, multiple joint involvement M12.[address] [address] 04/12/2025 Darian Brunner Acute non-recurrent maxillary sinusitis J01.00 ; Mixed hyperlipidemia E78.2 ; Essential (primary) hypertension I10 and MDS (myelodysplastic syndrome) D46.9 [facility] [address] [address] 06/16/2025 Darian Brunner Mechanical low back pain M54.59 ; Cancer related pain G89.3 ; Essential hypertension I10 ; ADELINE (generalized anxiety disorder) F41.1 ; MDS (myelodysplastic syndrome) D46.9 ; Routine medical exam Z00.00 and Immunization(s) administered Z23 [address] [address] 07/26/2025 Darian Brunner MDS (myelodysplastic syndrome) D46.9 ; Cancer related pain G89.3 ; Generalized anxiety disorder F41.1 ; Hospital discharge follow-up Z09 and Rash R21 [facility] [address] [place] [address] 09/02/2024 Darian Besson Cancer related pain G89.3 [facility] [address] [place] [address] 10/04/2024 Darian Besson Cancer related pain G89.3 [facility] [address] [place] [address] 10/11/2024 Darian Besson Seasonal allergies J30.2 [facility] [address] [place] [address] 12/17/2024 Darian Besson ADELINE (generalized anxiety disorder) F41.1 [facility] [place] [address] [place] [address] 12/31/2024 Lisa McNees Essential hypertensi on I10 [facility] [place] [address] [place] [address] 12/31/2024 Darian Besson [facility] [address] [place] [address] 01/25/2025 Darian Besson Cancer related pain G89.3 [facility] [address] [place] [address] 02/25/2025 Darian Besson [facility] [address] [place] [address] 03/02/2025 Darian Besson Cancer related pain G89.3 [facility] [address] [place] [address] 04/04/2025 Darian Besson Cancer related pain G89.3 [facility] [address] [place] [address] 04/05/2025 Darian Besson Cancer related pain G89.3 [facility] [address] [place] [address] 04/13/2025 Darian Besson [facility] [address] [place] [address] 05/04/2025 Darian Besson [facility] [address] [place] [address] 05/05/2025 Darian Besson Cancer related pain G89.3 [facility] [address] [place] [address] 06/06/2025 Darian Besson Cancer related pain G89.3 [facility] [place] [address] [place] [address] 06/23/2025 Darian Besson [facility] [place] [address] [place] [address] 07/07/2025 Darian Besson Cancer related pain G89.3 [facility] [place] [address] [place] [address] 07/14/2025 Darian Besson [facility] [place] [address] [place] [address] 07/27/2025 Darian Besson Rash R21 [facility] [place] [address] [place] [address] 08/08/2025 Darian Besson Cancer related pain G89.3 [facility] [place] [address] [facility] [address] [place] [address] 08/15/2025 Darian Besson Assessments Encounter Date Diagnosis [...] FU with oncology. Dr. Whitt note reviewed 01/25/2025 Cancer related pain (ICD-10 - G89.3) 03/02/2025 Cancer related pain (ICD-10 - G89.3) 04/04/2025 Cancer related pain (ICD-10 - G89.3) 04/12/2025 [...] 08/08/2025 Cancer related pain (ICD-10 - G89.3) 05/05/2025 Cancer related pain (ICD-10 - G89.3) 04/05/2025 Cancer related pain (ICD-10 - G89.3) 01/15/2025 Essential hypertension (ICD-10 - I10) 12/31/2024 Essential hypertension (ICD-10 - I10) 07/26/2025 Generalized anxiety disorder (ICD-10 - F41.1) [...] 12/31/2024 Tremor (ICD-10 - R25.1) At baseline 12/31/2024 Benign prostatic hyperplasia with lower urinary [...] done in the hospital. Personally reconciled medication. 06/16/2025 MDS (myelodysplastic syndrome) (ICD-10 - D46.9) Follows with hematology/oncolog y. On appropriate medication and follows with them on a regular basis 07/26/2025 Rash (ICD-10 - R21) 12/31/2024 Essential [...] A1C 05/31/2022 M-Hemoglobin A1C 10/18/2021 M-Lipid Panel 05/31/2022 M-Lipid Panel 10/18/2021 M-Lipid Panel 02/21/2023 M-Lipid Panel 10/21/2022 M-Lipid Panel 12/31/2024 M-PSA Total+% Free 05/31/2022 Insurance Providers Payer Name Payer Address Payer Phone Subscriber Number Group Number Insured Name Patient Relationship to Insured Coverage Start Date Coverage End Date [place] [place] [address] [id number] Glenn Marti Self - patient is the insured MEDICAID EDS [address] [place] [address] [id number] Glenn Marti Self - patient is the insured [employer] [address] [place] [address] ACL Glenn Marti Self - patient is [...]
--- OUTSIDE RECORDS SUMMARY | 2025-08-23 08:55 | XMS_ITS | Clinical Summary ---
Author Organization [employer] ([place], [place], [place], [place], [place]) Address [address] [place] [address] Care Team Providers Care Asbestos Worker Helper Name Role Phone Darian Brunner MD Primary Care Provider + [phone] Allergies No known active allergies Medications acyclovir [...] Date Celestino rded Speak language other than Danish at home Not on file 12/25/2023 Want [...] Falls Risk Screening 10/13/2024 COVID-19 VACCINE (6 - 2024-2 6 season) 2025 08/07/2023, 09/03/2022, 05/03/2022, Additional history exists Influenza Vaccine (#1) 2025 07/21/2023, 2020 Tobacco Cessation Counseling and Screening (12+) 12/16/2025 12/16/2024 DTAP/TDAP/TD VACCINES (3 - T d or Tdap) 05/31/2031 05/31/2021, 05/11/2004 Pneumococcal 50+ years Completed 9, 11/10/2017, 08/18/2008 Shingles Vaccine (Zoster) Completed 10/24/2023, Medical Devices Implanted Type Area Communication Clerk Device Identifier Shelf Expiration Date Model / Serial / Lot Iol Uv Clareon +21.0 [id number] - [id number] Implanted:Qty: 1 on 11/18/2024 by Julianna Mendez MD at [facility] IMPLANTS Right: Eye ANDRÉS 08/12/2027 [id number] / [id number] / Iol Uv Clareon +20.5 [id number] - [id number] Implanted:Qty: 1 on 12/16/2024 by Julianna Mendez MD at [facility] IMPLANTS Left: Eye ANDRÉS 09/01/2027 [id number] / [id number] 6 / Insurance MEDICARE PART A B MEDICAID B Care Teams Asbestos Worker Helper Relationship Specialty Start Date End Date Darian Brunner MD [address] [place] [address] PCP - General Adolescent Medicine 01/01/24
--- OUTSIDE RECORDS SUMMARY | 2025-08-23 08:55 | XMS_ITS | Referral Summary ---
Author Organization [employer] ([place], [place], [place], [place], [place]) Address [address] [place] [address] Care Team Providers Care Digital Solution Architect Name Role Phone Darian Brunner MD Primary Care Provider + [phone] Allergies No known active allergies Medications acyclovir [...] Date Celestino rded Speak language other than Polish at home Not on file 12/25/2023 Want [...] on file Medical Devices Implanted Type Area Accounts Payable Administrator Device Identifier Shelf Expiration Date Model / Serial / Lot Iol Uv Jared +21.0 [id number] - [id number] Implanted:Qty: 1 on 11/18/2024 by Julianna Mendez MD at [facility] IMPLANTS Right: Eye ANDRÉS 08/12/2027 [id number] / [id number] / Iol Uv Clareon +20.5 [id number] - [id number] Implanted:Qty: 1 on 12/16/2024 by Julianna Mendez MD at [facility] IMPLANTS Left: Eye ANDRÉS 09/01/2027 [id number] / [id number] 6 / Insurance MEDICARE PART A B MEDICAID QMB Care Teams Digital Solution Architect Relationship Specialty Start Date End Date Darian Brunner MD [address] [place] [address] PCP - General Adolescent Medicine 01/01/24
[2025-08-23 09:17] LABS: Immature Granulocytes % 2.8 %; Mean Corpuscular HGB Conc 32.1 g/dL (31.8-35.4); Mean Corpuscular Hemoglobin 33.7 pg (27.0-31.2); Mean Corpuscular Volume 104.9 fl (80-94); Nucleated Red Blood Cells % 0 %; Red Blood Count 1.84 M/mm3 (4.60-6.20)
[2025-08-23 09:22] LABS: White Blood Count 1.8 K/mm3 (4.8-10.8)
[2025-08-23 09:23] LABS: Hematocrit 19.3 % (42.0-52.0); Hemoglobin 6.2 g/dL (14.1-18.0); Platelet Count 14 K/mm3 (142-424)
[2025-08-23 09:54] LABS: Total Cells Counted 100
[2025-08-23 09:56] LABS: Anisocytosis 1+; Poikilocytosis 1+
--- NOTE | 2025-08-23 09:57 | PC.NURSE ---
0930-Lab staff with pt, witnessed blood draw per RN from iv line for type and crossmatch.
[2025-08-23] MEDS: 0.9 % SODIUM CHLORIDE 250 ML 25 ML IV (10:51)
== END 2025-08-23 23:59 | disposition home or self-care (01) ==
LOC: INF 08:51
PROVIDERS: PCP Internal Medicine Adolescent Medicine; Visit Provider Internal Medicine Medical Oncology
DX: D46.9 Myelodysplastic syndrome, unspecified (principal)
CPT/HCPCS: 36430; 85007; 85025; 86850; J7050; P9016

== ENCOUNTER 2025-08-30 08:48 | Outpatient (CLI) | payer MEDICARE, MEDICAID, SELFPAY ==
[2025-08-30 09:06] LABS: Hematocrit 25.8 % (42.0-52.0); Hemoglobin 8.3 g/dL (14.1-18.0); Immature Granulocytes % 1.6 %; Mean Corpuscular HGB Conc 32.2 g/dL (31.8-35.4); Mean Corpuscular Hemoglobin 33.1 pg (27.0-31.2); Mean Corpuscular Volume 102.8 fl (80-94); Nucleated Red Blood Cells % 0 %; Red Blood Count 2.51 M/mm3 (4.60-6.20); Red Cell Distribution Width-SD 92.9 fL
[2025-08-30 09:08] LABS: Platelet Count 18 K/mm3 (142-424); White Blood Count 1.2 K/mm3 (4.8-10.8)
[2025-08-30 09:46] LABS: Macrocytosis 1+; Total Cells Counted 25
== END 2025-08-30 23:59 | disposition home or self-care (01) ==
LOC: INF 08:49
PROVIDERS: PCP Internal Medicine Adolescent Medicine; Visit Provider Internal Medicine Medical Oncology
DX: D46.9 Myelodysplastic syndrome, unspecified (principal)
CPT/HCPCS: 36415; 85007; 85025; 85027

== ENCOUNTER 2025-09-06 09:04 | Outpatient (CLI) | payer MEDICARE, MEDICAID, SELFPAY ==
[2025-09-06 09:07] VITALS: BMI 30.6
--- OUTSIDE RECORDS SUMMARY | 2025-09-06 09:15 | XMS_ITS | Clinical Summary ---
Author Organization [email or web address] ([place], [place], [place], [place], [place]) Address [address] [place] [address] Care Team Providers Care Debt Management Counselor Name Role Phone Darian Brunner MD Primary Care Provider + [phone] Allergies No known active allergies Medications acyclovir [...] Date Celestino rded Speak language other than Yakut at home Not on file 12/25/2023 Want [...] Completed 10/24/2023, Medical Devices Implanted Type Area [employer] Labourer Device Identifier Shelf Expiration Date Model / Serial / Lot Iol Uv Clareon +21.0 [id number] - [id number] Implanted:Qty: 1 on 11/18/2024 by Julianna Mendez MD at [facility] IMPLANTS Right: Eye ANDRÉS 08/12/2027 [id number] / [id number] 7 / Iol Uv Clareon +20.5 [id number] - [id number] Implanted:Qty: 1 on 12/16/2024 by Julianna Mendez MD at [facility] IMPLANTS Left: Eye ANDRÉS 09/01/2027 [id number] / [id number] 6 / Insurance MEDICARE PART A B MEDICAID B Care Teams Debt Management Counselor Relationship Specialty Start Date End Date Darian Brunner MD [address] [place] [address] PCP - General Adolescent Medicine 01/01/24
--- OUTSIDE RECORDS SUMMARY | 2025-09-06 09:15 | XMS_ITS | Referral Summary ---
Author Organization [employer] ([place], [place], [place], [place], [place]) Address [address] [place] [address] Care Team Providers Care Financial Aid Administrator Name Role Phone Darian Brunner MD Primary Care Provider + [phone] Allergies No known active allergies Medications acyclovir [...] Date Celestino rded Speak language other than Luxembourgish at home Not on file 12/25/2023 Want [...] on file Medical Devices Implanted Type Area Electric Motor Fitter Device Identifier Shelf Expiration Date Model / Serial / Lot Iol Uv Jared +21.0 [id number] - [id number] Implanted:Qty: 1 on 11/18/2024 by Julianna Mendez MD at [facility] IMPLANTS Right: Eye ANDRÉS 08/12/2027 [id number] / [id number] 7 / Iol Uv Clareon +20.5 [id number] - [id number] Implanted:Qty: 1 on 12/16/2024 by Julianna Mendez MD at [facility] IMPLANTS Left: Eye ANDRÉS 09/01/2027 [id number] / [id number] 6 / Insurance MEDICARE PART A B MEDICAID QMB Care Teams Financial Aid Administrator Relationship Specialty Start Date End Date Darian Brunner MD [address] [place] [address] PCP - General Adolescent Medicine 01/01/24
[2025-09-06 09:36] LABS: Hematocrit 23.2 % (42.0-52.0); Hemoglobin 7.5 g/dL (14.1-18.0); Immature Granulocytes % 0 %; Mean Corpuscular HGB Conc 32.3 g/dL (31.8-35.4); Mean Corpuscular Hemoglobin 33.3 pg (27.0-31.2); Mean Corpuscular Volume 103.1 fl (80-94); Nucleated Red Blood Cells % 0 %; Red Blood Count 2.25 M/mm3 (4.60-6.20); Red Cell Distribution Width-SD 88.4 fL
[2025-09-06 09:38] LABS: White Blood Count 1.4 K/mm3 (4.8-10.8)
[2025-09-06 09:39] LABS: Platelet Count 22 K/mm3 (142-424)
[2025-09-06 10:22] LABS: Anisocytosis 1+; Macrocytosis 1+; Total Cells Counted 20
== END 2025-09-06 23:59 | disposition home or self-care (01) ==
LOC: INF 09:06
PROVIDERS: PCP Internal Medicine Adolescent Medicine; Visit Provider Internal Medicine Medical Oncology
DX: D46.9 Myelodysplastic syndrome, unspecified (principal)
CPT/HCPCS: 36415; 85007; 85025; 85027

== ENCOUNTER 2025-09-07 08:06 | Outpatient (CLI) | payer MEDICARE, MEDICAID, SELFPAY ==
--- OUTSIDE RECORDS SUMMARY | 2024-11-16 07:30 | XMS_ITS ---
Author Organization [facility] PE D [facility] Address [address] [place] [address] Care Team Providers Care Dough Puncher Name Role Phone Darian Brunner Primary Care Provider REASON FOR VISIT [facility] Encounters Encounter Location Date Provider Diagnosis [place] [address] [address] 11/16/2024 Darian Brunner Plan Of Treatment No Information Progress Notes * Glenn MARTI BDOB:[birth year] (80 yo M)Acc No.[id number]:11/16/2024 HOSP F/U Patient: Theresa PACK Glenn Faulkner Provider: Rossy Brunner MD :1945 A ge:79 Y S ex:Male Date:11/16/2024 Address:[address], [id number] Subjective: * Chief Complaints: * 1 . [facility]. * Medical History: Objective: * Vitals: Assessment: Plan: * Treatment: * * Electronic signature of Vasyl Brunner MD FAAP on 09/07/2025 at 08:10 AM EST Sign off status: Pending * Provider: Rossy Brunner MD Date: 0 11/16/2024 Generated for Printi ng/Faxing/eTransmitting on: 1 11/07/2024 08:10 AM EST
--- OUTSIDE RECORDS SUMMARY | 2025-01-15 16:30 | XMS_ITS ---
Author Organization [facility] Address [address] [place] [address] Care Team Providers Care Guitar Repairer Name Role Phone Darian Brunner Primary Care Provider Migration, Provider Unavailable Unavailable [facility] Encounter Medications Medication SIG (Take, Route, Frequency, Duration) Notes Start Date End Date Status oxyCODONE-Acetaminophen 10-325 MG 1 tab(s) orally three times daily; Duration: 30 days 11/12/2024 Active Acyclovir 800 MG 1 tab(s) orally once a day; Duration: 10 days Active Meloxicam 15 MG 1 tab(s) orally once a day; Duration: 90 days Active Tamsulosin HCl 0.4 MG 2 caps orally once a day at bedtime; Duration: 90 days Active Cyclobenzaprine HCl 10 MG 1 tab(s) orally every 8 hrs as needed for back spasm; Duration: 90 days 06/18/2019 Active Escitalopram Oxalate 20 MG 1 tab(s) orally once a day; Duration: 90 days Active Omeprazole Magnesium 20 MG 1 cap(s) orally once a day; Duration: 90 days 02/09/2024 Active Breo Ellipta 100 MCG-25 MCG/INH 1 PUFF BY MOUTH ONCE DAILY DIRECTED; Duration: 90 DAYS *Please review and pick correct strength-formulati on from Med[employer]pan options. If intended option is not shown, discontinue and re-order from Quick Search* Active Ventolin HFA 108 (90 Base) MCG/ACT 2 puff(s) inhaled 4 times a day PRN SOA; Duration: 90 days 05/11/2018 Active Atorvastatin Calcium 40 MG 1 tab(s) orally once a day; Duration: 90 days 05/11/2019 Active Propranolol HCl 10 MG 1 tab(s) orally 2 times a day; Duration: 30 days Active amLODIPine Besylate 5 MG 1 tab(s) orally once a day; Duration: 90 days Active Selenium Sulfide 2.25 % 1 miguel a applied topically 2 times a week; Duration: 30 day(s) 08/20/2019 Active ICaps AREDS Formula - as directed orally; Duration: 30 day(s) Active CHEMOTHERAPY *Please review f or potential replacement for e-prescription and drug interaction check* Active Levocetirizine Dihydrochloride 5 MG 1 tab(s) orally once a day (in the evening); Duration: 90 days Active Fluticasone Propionate 50 MCG/ACT 1 spray(s) in each nostril once a day; Duration: 90 days Active busPIRone HCl 10 MG 1-1.5 tabs orally three times a day prn anxiety; Duration: 90 days Active Encounters Encounter Location Date Provider Diagnosis [facility] PED [facility] [address] [facility] [address] [place] [address] 01/15/2025 Provider Migration Essential hypertension I10 and ADELINE (generalized anxiety disorder) F41.1 Assessments Encounter Date Diagnosis (ICD Code) Assessment Notes Treatment Notes Treatment Clinical Notes Section Notes 01/15/2025 Essential hypertension (ICD-10 - I10) 01/15/2025 ADELINE (generalized anxiety disorder) (ICD-10 - F41.1) Plan Of Treatment Medication Medication Name Sig Start Date Stop Date Notes amLODIPine Besylate 5 MG 1 tab(s) orally once a day; Duration: 90 days Levocetirizine Dihydrochlori de 5 MG 1 tab(s) orally once a day (in the evening); Duration: 90 days Fluticasone Propionate 50 MCG/ACT 1 spra y(s) in each nostril once a day; Duration: 90 days busPIRone HCl 10 MG 1-1.5 tabs orally th ree times a day prn anxiety; Duration: 90 days Progress Notes * Glenn MARTI BDOB:[birth year] (80 yo M)Acc No.[id number]:01/15/2025 Patient: Glenn GILMORE Provider: Caroline White :1945 A ge:79 Y S ex:Male Date:01/15/2025 Address:[facility] [address] [place], [id number] Pcp:Darian Brunner Subjective: * Chief Complaints: * [facility] . [facility] * Medical History: * Medications: T aking CHEMOTHERAPY , Notes to Pharmacist: *Please review for potential replacement for e-prescription and drug interaction check*, Taking ICaps AREDS Formula - Tablet as directed orally , Taking Selenium Sulfide 2.25 % Shampoo 1 migeul a applied topically 2 times a week , Taking Propranolol HCl 10 MG Tablet 1 tab(s) orally 2 times a day , Taking Atorvastatin Calcium 40 MG Tablet 1 tab(s) orally once a day , Taking Ventolin HFA 108 (90 Base) MCG/ACT Aerosol Solution 2 puff(s) inhaled 4 times a day PRN SOA , Taking Breo Ellipta 100 MCG-25 MCG/INH POWDER 1 PUFF BY MOUTH ONCE DAILY DIRECTED , Notes to Pharmacist: *Please review and pick correct strength[facility]ulation from [facility]. If intended option is not shown, discontinue and re-order from Quick Search*, Taking Omeprazole Magnesium 20 MG Tablet Delayed Release 1 cap(s) orally once a day , Taking Escitalopram Oxalate 20 MG Tablet 1 tab(s) orally once a day , Taking Cyclobenzaprine HCl 10 MG Tablet 1 tab(s) orally every 8 hrs as needed for back spasm , Taking Tamsulosin HCl 0.4 MG Capsule 2 caps orally once a day at bedtime , Taking Meloxicam 15 MG Tablet 1 tab(s) orally once a day , Taking Acyclovir 800 MG Tablet 1 tab(s) orally once a day , Taking oxyCODONE-Acetaminophen 10-325 MG Tablet 1 tab(s) orally three times daily Objective: * Vitals: Assessment: * Assessment: 1. E ssential hypertension - I10 2 . G AD (generalized anxiety disorder) - F41.1 Plan: * Treatment: 2. G AD (generalized anxiety disorder) Increase busPIRone HCl Tablet, 10 MG, 1-1.5 tabs, orally, three times a day prn anxiety, 90 days, 360, Refills 1. 3. O thers Start Fluticasone Propionate Suspension, 50 MCG/ACT, 1 spray(s), in each nostril, once a day, 90 days, 3, Refills 1; S tart Levocetirizine Dihydrochloride Tablet, 5 MG, 1 tab(s), orally, once a day (in the evening), 90 days, 90, Refills 1. * * Electronic signature of Prov ider Migration on 09/07/2025 at 08:10 AM EST Sign off status: Pending * Provider: Caroline cedeño Migration Date: 0 01/15/2025 Generated for Claudette hess/Vinicio/Janineitting on: 1 11/07/2024 08:10 AM EST
--- OUTSIDE RECORDS SUMMARY | 2025-04-08 06:45 | XMS_ITS ---
Author Organization [facility] Address [address] [place] [address] Care Team Providers Care Radiology Nurse Name Role Phone Darian Brunner Primary Care Provider Lisa Jones Unavailable [phone] REASON FOR VISIT med ck Encounters Encounter Location Date Provider Diagnosis [address] [address] 04/08/2025 Lisa Jones Plan Of Treatment No Information Progress Notes * Glenn MARTI BDOB:[birth year] (80 yo M)Acc No.[id number]:04/08/2025 Progress Notes Patient: Theresa PACK Glenn Faulkner Provider: Theresa Jones APRN :1945 A ge:79 Y S ex:Male Date:04/08/2025 Address[address] [place] [id number] Pcp:Darian Brunner Subjective: * Chief Complaints: * 1 . Med ck. * Medical History: Objective: * Vitals: Assessment: Plan: * Treatment: * * Electronic signature of Leni Jones APRN on 09/07/2025 at 08:10 AM EST Sign off status: Pending * Provider: Theresa Jones APRN Date: 0 04/08/2025 Generated for Printi ng/Faxing/eTransmitting on: 1 11/07/2024 08:10 AM EST
--- OUTSIDE RECORDS SUMMARY | 2025-06-30 06:15 | XMS_ITS ---
Author Organization [facility] PE D [place] Address [address] [place] [address] Care Team Providers Care Audio Video Repairer Name Role Phone Darian Brunner Primary Care Provider [phone] REASON FOR VISIT 2 weeks, ED FU d/c 06/22/2025 Encounters Encounter Location Date Provider Diagnosis [address] [address] 06/30/2025 Darian Brunner Plan Of Treatment No Information Progress Notes * Glenn MARTI BDOB:[birth year] (80 yo M)Acc No.[id number]:06/30/2025 Progress Notes Patient: Glenn GILMORE Lucie Provider: Rossy Brunner MD :1945 A ge:80 Y S ex:Male Date:06/30/2025 Address:[facility] [address], [place], [id number] Subjective: * Chief Complaints: * 1 . 2 weeks, ED FU d/c 06/22/2025. * Medical History: Objective: * Vitals: Assessment: Plan: * Treatment: * * Electronic signature of Vasyl Brunner MD FAAP on 09/07/2025 at 08:09 AM EST Sign off status: Pending * Provider: Rossy Brunner MD Date: 0 06/30/2025 Generated for Printi ng/Faxing/eTransmitting on: 11/07/2024 08:09 AM EST
--- OUTSIDE RECORDS SUMMARY | 2025-07-21 06:45 | XMS_ITS ---
Author Organization [facility] PE D CATARINA Address [address] [place] [address] Care Team Providers Care Drafting Detailer Name Role Phone Darian Brunner Primary Care Provider REASON FOR VISIT [facility] D/C 07/14/2025 Encounters Encounter Location Date Provider Diagnosis [address] [address] 07/21/2025 Darian Brunner Plan Of Treatment No Information Progress Notes * Glenn MARTI BDOB:[birth year] (80 yo M)Acc No.[id number]:07/21/2025 HOSP F/U Patient: Glenn GILMORE Lucie Provider: Rossy Brunner MD :1945 A ge:80 Y S ex:Male Date:07/21/2025 Address:[facility] [address] [id number] Subjective: * Chief Complaints: * 1 . [facility] D/C 07/14/2025. * Medical History: Objective: * Vitals: Assessment: Plan: * Treatment: * * Electronic signature of Vasyl Brunner MD FAAP on 09/07/2025 at 08:09 AM EST Sign off status: Pending * Provider: Rossy Brunner MD Date: Generated for Printi ng/Faxing/eTransmitting on: 11/07/2024 08:09 AM EST
--- OUTSIDE RECORDS SUMMARY | 2025-07-26 07:15 | XMS_ITS ---
Author Organization [facility] Address [address] [facility] [address] [place] [address] Care Team Providers Care Modeling Instructor Name Role Phone Darian Brunner Primary Care Provider [phone] Allergies No Known Allergies REASON FOR VISIT [facility] hospital f/u, rash all over, anxiety [...] review and pick correct strength-formulati on from [employer] options. If intended option is not shown, [...] Status Risk Notes Problem Generalized anxiety disorder (16211081) Generalized anxiety disorder (F41.1) Active confirmed Vital Signs Temperature 98 degrees Fahrenheit 07/26/2025 Blood pressure systolic 118 mm Hg 07/26/20 25 Blood pressure diastolic 62 mm Hg 025 Heart Rate 58 /min 07/26/2025 Height 5 ft 8 in in 07/26/2025 Weight 215 lbs 07/26/2025 BMI 32.69 kg/m2 07/26/2025 Encounters Encounter Location Date Provider Diagnosis [facility] [address] [address] 07/26/2025 Darian Brunner MDS (myelodysplastic syndrome) D46.9 [...] Glenn MARTI BDOB:[birth year] (80 yo M)Acc No.[id number]:07/26/2025 HOSP F/U Patient: Glenn GILMORE Provider: Rossy Brunner MD :1945 A ge:80 Y S ex:Male Date:07/26/2025 Address:[address] [place] [address] , [place], [id number] Subjective: * Chief Complaints: * 1 . [facility] hospital f/u. 2. Rash all over. [...] given 2 units of packed cells at [facility], felt better, he was initially treated [...] Diagno stic Procedure: jared ruiz , Cancer- [facility] . * Family History: F ather: [...] *Please review and pick correct strength-formulation from [employer] options. If intended option is not shown, [...] true * Provider: Rossy Brunner MD Date: Generated for Keltoni ng/Vinicio/eTransmitting on: 11/07/2024 08:10 AM EST History and Physical Notes * [...] given 2 units of packed cells at [facility], felt better, he was initially treated [...]
--- OUTSIDE RECORDS SUMMARY | 2025-08-16 06:30 | XMS_ITS ---
Author Organization [facility] [place] Address [address] [place] [address] Care Team Providers Care Eyeletter Name Role Phone Darian Brunnre Primary Care Provider [phone] REASON FOR VISIT 3 week fu Encounters Encounter Location Date Provider Diagnosis [address] [address] 08/16/2025 Darian Brunner Plan Of Treatment No Information Progress Notes * Glenn MARTI BDOB:[birth year] (80 yo M)Acc No.[id number]:08/16/2025 Progress Notes Patient: Glenn GILMORE Provider: Rossy Brunner MD :1945 A ge:80 Y S ex:Male Date:08/16/2025 Address:[facility] [address] [place] [id number] Subjective: * Chief Complaints: * 1 . 3 week fu. * Medical History: Objective: * Vitals: Assessment: Plan: * Treatment: * * Electronic signature of Vasyl Brunner MD FAAP on 09/07/2025 at 08:10 AM EST Sign off status: Pending * Provider: Rossy Brunner MD Date: 10/16/2024 Generated for Printi ng/Faxing/eTransmitting on: 11/07/2024 08:10 AM EST
[2025-09-07] VITALS (19 sets, daily range): BP systolic 129–165; BP diastolic 56–76; PULSE 67–81; RESP 18–20; TEMP 36.4–36.8; O2SAT 96–99; BMI 31.8
--- OUTSIDE RECORDS SUMMARY | 2025-09-07 08:10 | XMS_ITS | Referral Summary ---
Author Organization [employer] ([place], [place], [place], [place], [place]) Address [address] [place] [address] Care Team Providers Care Hospital Pharmacist Name Role Phone Darian Brunner MD Primary Care Provider + [phone] Allergies No known active allergies Medications acyclovir [...] on file Medical Devices Implanted Type Area Nude Model Device Identifier Shelf Expiration Date Model / Serial / Lot Iol Uv Jared +21.0 [id number] - [id number] Implanted:Qty: 1 on 11/18/2024 by Julianna Mendez MD at [facility] IMPLANTS Right: Eye ANDRÉS 08/12/2027 [id number] / [id number] 7 / Iol Uv Clareon +20.5 [id number] - [id number] Implanted:Qty: 1 on 12/16/2024 by Julianna Mendez MD at [facility] IMPLANTS Left: Eye ANDRÉS 09/01/2027 [id number] / [id number] 6 / Insurance MEDICARE PART A B MEDICAID QMB Care Teams Hospital Pharmacist Relationship Specialty Start Date End Date Darian rBunner MD [address] [place] [address] PCP - General Adolescent Medicine 01/01/24
--- OUTSIDE RECORDS SUMMARY | 2025-09-07 08:10 | XMS_ITS | Patient Health Record ---
Author Organization [facility] Address [address] [facility] [address] [place] [address] Care Team Providers Care Basket Patcher Name Role Phone Darian Brunner Primary Care Provider [phone] Gemzainab Lisa Unavailable [phone] Migration, Provider Unavailable Unavailable Allergies No Known Allergies Reason For Referral No Information Medications Medication SIG (Take, Route, Frequency, Duration) Notes Start Date End Date Status Omeprazole Magnesium 20 MG 1 cap(s) orally once a day; Duration: 90 days Active oxyCODONE-Acetaminophen 10-325 MG 1 tab(s) orally three times daily; Duration: 30 days 09/06/2025 Active Triamcinolone Acetonide 0.5 % 1 miguel a applied topically 2 times a day; Duration: 7 day(s) 07/26/2025 Active Breo Ellipta 100 MCG-25 MCG/INH 1 PUFF BY MOUTH ONCE DAILY DIRECTED; Duration: 90 DAYS *Please review and pick correct strength-formulati on from sailsquarean options. 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) Active confirmed Problem COPD - Chronic obstructive pulmonary disease (49496288) Chronic obstructive pulmonary disease, unspecified COPD type (J44.9) Active confirmed Problem Obese class II (299928025575114) BMI 37.0-37.9, adult (Z68.37) Active confirmed Problem Essential tremor (667214299) Benign essential tremor (G25.0) Active confirmed Problem Lower urinary tract symptoms due to benign prostatic hypertrophy (02052084902807) Benign prostatic hyperplasia with lower urinary tract symptoms, unspecified morphology (N40.1) Active confirmed Problem Contracture of palmar fascia (552850173) Dupuytren's contracture of both hands (M72.0) Active confirmed Problem Pain due to neoplastic disease (83540103489354) 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) Active confirmed Problem Myelodysplastic syndrome (269588082) 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 [address] [address] 12/31/2024 Lisa Robert Paroxysmal atrial fibrillation I48.0 [...] E78.2 and Arthritis, multiple joint involvement M12.[address] [address] 04/12/2025 Darian Brunner Acute non-recurrent maxillary sinusitis J01.00 ; Mixed hyperlipidemia E78.2 ; Essential (primary) hypertension I10 and MDS (myelodysplastic syndrome) D46.9 [facility] [address] [address] 06/16/2025 Darian Brunner Mechanical low back pain M54.59 ; Cancer related pain G89.3 ; Essential hypertension I10 ; ADELINE (generalized anxiety disorder) F41.1 ; MDS (myelodysplastic syndrome) D46.9 ; Routine medical exam Z00.00 and Immunization(s) administered Z23 [address] [address] 07/26/2025 Darian Brunner MDS (myelodysplastic syndrome) D46.9 ; Cancer related pain G89.3 ; Generalized anxiety disorder F41.1 ; Hospital discharge follow-up Z09 and Rash R21 [facility] [address] [place] [address] 10/04/2024 Darian Besson Cancer related pain G89.3 [facility] [address] [place] [address] 10/11/2024 Darian Besson Seasonal allergies J30.2 [facility] [address] [place] [address] 12/17/2024 Darian Besson ADELINE (generalized anxiety disorder) F41.1 [facility] [address] [place] [address] 12/31/2024 Lisa McNees Essential hypertensi on I10 [facility] [address] [place] [address] 12/31/2024 Darian Besson [facility] [address] [place] [address] 01/25/2025 Darian Besson Cancer related pain G89.3 [facility] [address] [place] [address] 02/25/2025 Darian Besson [facility] [address] [place] [address] 03/02/2025 Darian Besson Cancer related pain G89.3 [facility] [address] [place] [address] 04/04/2025 Darian Besson Cancer related pain G89.3 [facility] [address] [place] [address] 04/05/2025 Darian Besson Cancer related pain G89.3 [facility] [address] [place] [address] 04/13/2025 Draian Besson [facility] [address] [place] [address] 05/04/2025 Darian Besson [facility] [address] [place] [address] 05/05/2025 Darian Besson Cancer related pain G89.3 [facility] [address] [place] [address] 06/06/2025 Darian Besson Cancer related pain G89.3 [facility] [place] [address] [place], [place] [address] 06/23/2025 Darian Besson [facility] [address] [place] [address] 07/07/2025 Darian Besson Cancer related pain G89.3 [facility] [place] [address] [place] [address] 07/14/2025 Darian Besson [facility] [address] [place] [address] 07/27/2025 Darian Besson Rash R21 [facility] [address] [place] [address] 08/08/2025 Darian Besson Cancer related pain G89.3 [facility] [place] [address] [place] [address] 08/15/2025 Darian Besson [facility] [address] [address] 09/06/2025 Darian Besson Cancer related pain G89.3 Assessments Encounter Date Diagnosis (ICD Code) Assessment Notes Treatment Notes Treatment Clinical Notes Section Notes 10/04/2024 Cancer related pain (ICD-10 - G89.3) [...] 05/05/2025 Cancer related pain (ICD-10 - G89.3) 07/26/2025 [...] 08/08/2025 Cancer related pain (ICD-10 - G89.3) 09/06/2025 Cancer related pain (ICD-10 - G89.3) 06/06/2025 Cancer related pain (ICD-10 - G89.3) 06/16/2025 Mechanical low back pain (ICD-10 - [...] with dizziness, mental status changes or constipation 07/26/2025 Generalized anxiety disorder (ICD-10 - F41.1) [...] - F41.1) Comorbidity noted. Depression screening negative 04/12/2025 MDS (myelodysplastic syndrome) (ICD-10 - D46.9) - Last chemo Oct 2024, follows with Dr. Whitt - Recently started Procrit 2 months prior - Has had purpuric rash for a few weeks, it is not itchy or irritating - May be side effect of Procrit or in setting of acute illness - Counseling on RTC if worsening SOB or hematuria occurs 07/26/2025 Hospital discharge follow-up (ICD-10 - Z09) Personally reviewed H&P and discharge summary as available from hospital discharge documentation. Reviewed pertinent labs and test done in the hospital. Personally reconciled medication. 07/26/2025 Rash (ICD-10 - R21) 06/16/2025 MDS (myelodysplastic syndrome) (ICD-10 - D46.9) Follows with hematology/oncolog y. On appropriate medication and follows with them on a regular basis 12/31/2024 Essential (primary) hypertension (ICD-10 - I10) Blood pressure at goal 06/16/2025 Routine medical exam (ICD-10 - Z00.00) No recent falls. Functional status impaired as noted. Depression screening negative. Flu shot today. Aged out of other cancer screening. No recent smoking. 12/31/2024 Chronic obstructive pulmonary disease, unspecified COPD type (ICD-10 - J44.9) Restart breo. Continue albuterol prn 12/31/2024 Dupuytren's contracture of both hands (ICD-10 - M72.0) Well controlled on meloxicam 06/16/2025 Immunization(s) administered (ICD-10 - Z23) 01/15/2025 ADELINE (generalized anxiety disorder) (ICD-10 - [...] A1C 10/18/2021 M-Hemoglobin A1C 05/31/2022 M-Lipid Panel 10/21/2022 M-Lipid Panel 05/31/2022 M-Lipid Panel 10/18/2021 M-Lipid Panel 12/31/2024 M-Lipid Panel 02/21/2023 M-PSA Total+% Free 05/31/2022 Insurance Providers Payer Name Payer Address Payer Phone Subscriber Number Group Number Insured Name Patient Relationship to Insured Coverage Start Date Coverage End Date [place] [address] [place] [place] [address] [phone] [id number] Glenn Marti Self - patient is the insured MEDICAID EDS [address] [place] [address] [phone] [id number] Glenn Marti Self - patient is the insured [facility] [address] [place] [address] [phone] [id number] Glenn Marti Self - patient is [...]
--- OUTSIDE RECORDS SUMMARY | 2025-09-07 08:11 | XMS_ITS | Clinical Summary ---
Author Organization [employer] ([place], [place], [place], [place], [place]) Address [address] [place] [address] Care Team Providers Care Soil Science Technical Officer Name Role Phone Darian Brunner MD Primary Care Provider + [phone] Allergies No known active allergies Medications acyclovir [...] Completed 10/24/2023, Medical Devices Implanted Type Area Fitness Trainer Device Identifier Shelf Expiration Date Model / Serial / Lot Iol Uv Clareon +21.0 [id number] - [id number] Implanted:Qty: 1 on 11/18/2024 by Julianna Mendez MD at [facility] IMPLANTS Right: Eye ANDRÉS 08/12/2027 [id number] / [id number] / Iol Uv Clareon +20.5 [id number] - [id number] Implanted:Qty: 1 on 12/16/2024 by Julianna Mendez MD at [facility] IMPLANTS Left: Eye ANDRÉS 09/01/2027 [id number] / [id number] 6 / Insurance MEDICARE PART A B MEDICAID B Care Teams Soil Science Technical Officer Relationship Specialty Start Date End Date Darian Brunner MD [address] [place] [address] PCP - General Adolescent Medicine 01/01/24
[2025-09-07] MEDS: 0.9 % SODIUM CHLORIDE 250 ML 25 ML IV (09:00)
== END 2025-09-07 23:59 | disposition home or self-care (01) ==
LOC: INF 08:07
PROVIDERS: PCP Internal Medicine Adolescent Medicine; Visit Provider Internal Medicine Medical Oncology
DX: D46.9 Myelodysplastic syndrome, unspecified (principal)
CPT/HCPCS: 36430; 86850; J7050; P9016

== ENCOUNTER 2025-09-13 09:28 | Outpatient (CLI) | payer MEDICARE, MEDICAID, SELFPAY ==
[2025-09-13 09:50] LABS: Hematocrit 28.9 % (42.0-52.0); Hemoglobin 9.5 g/dL (14.1-18.0); Immature Granulocytes % 0.7 %; Mean Corpuscular HGB Conc 32.9 g/dL (31.8-35.4); Mean Corpuscular Hemoglobin 32.0 pg (27.0-31.2); Mean Corpuscular Volume 97.3 fl (80-94); Nucleated Red Blood Cells % 0 %; Red Blood Count 2.97 M/mm3 (4.60-6.20); Red Cell Distribution Width-SD 81.3 fL
[2025-09-13 09:54] LABS: Albumin Level 4.1 g/dl (3.5-5.0); Chloride 109 mmol/L (98-107)
[2025-09-13 09:55] LABS: Potassium 4.1 mmoL/L (3.5-5.1); Sodium 143 mmol/L (136-145)
[2025-09-13 09:57] LABS: Alanine Aminotransferase 59 U/L (12-78); Anion Gap 17.1 mEq/L (5-15); Aspartate Amino Transferase 58 U/L (17-59); Blood Urea Nitrogen 35 mg/dl (9-20); Carbon Dioxide 21 mmol/L (22.0-30.0); Creatinine,Serum 1.50 mg/dl (0.66-1.25); Estimated Glomerular Filt Rate 45 ml/min (>60); GFR (African American) 54 ML/MIN (>60)
[2025-09-13 09:58] LABS: Albumin/Globulin Ratio 1.2 (1.1-1.8); Alkaline Phosphatase 164 U/L (38-126); Bilirubin,Total 0.6 mg/dl (0.2-1.3); Calcium 9.0 mg/dl (8.4-10.2); Globulin 3.4 g/dL (1.3-3.2); Glucose 96 mg/dl (74-100); Total Protein,Serum 7.5 g/dl (6.3-8.2)
[2025-09-13 10:22] LABS: Platelet Count 14 K/mm3 (142-424); White Blood Count 1.4 K/mm3 (4.8-10.8)
[2025-09-13 11:35] LABS: RBC Morphology Normal; Total Cells Counted 25
== END 2025-09-13 23:59 | disposition home or self-care (01) ==
LOC: INF 09:30
PROVIDERS: PCP Internal Medicine Adolescent Medicine; Visit Provider Internal Medicine Medical Oncology
DX: D46.9 Myelodysplastic syndrome, unspecified (principal)
CPT/HCPCS: 36415; 80053; 85007; 85025; 85027

== ENCOUNTER 2025-09-20 08:07 | Outpatient (CLI) | payer MEDICARE, MEDICAID, SELFPAY ==
[2025-09-20 08:35] LABS: Hematocrit 27.4 % (42.0-52.0); Hemoglobin 8.8 g/dL (14.1-18.0); Immature Granulocytes % 1.3 %; Mean Corpuscular HGB Conc 32.1 g/dL (31.8-35.4); Mean Corpuscular Hemoglobin 31.9 pg (27.0-31.2); Mean Corpuscular Volume 99.3 fl (80-94); Nucleated Red Blood Cells % 0.4 %; Red Blood Count 2.76 M/mm3 (4.60-6.20); Red Cell Distribution Width-SD 84.3 fL; White Blood Count 4.8 K/mm3 (4.8-10.8)
[2025-09-20 08:43] LABS: Platelet Count 26 K/mm3 (142-424)
== END 2025-09-20 23:59 | disposition home or self-care (01) ==
LOC: INF 08:08
PROVIDERS: PCP Internal Medicine Adolescent Medicine; Visit Provider Internal Medicine Medical Oncology
DX: D46.9 Myelodysplastic syndrome, unspecified (principal)
CPT/HCPCS: 36415; 85025

== ENCOUNTER 2025-09-27 08:43 | Outpatient (CLI) | payer MEDICARE, MEDICAID, SELFPAY ==
--- OUTSIDE RECORDS SUMMARY | 2024-11-16 07:30 | XMS_ITS ---
Author Organization [facility] PE D [facility] Address [address] [place] [address] Care Team Providers Care Early Childhood Specialist Name Role Phone Darian Brunner Primary Care Provider REASON FOR VISIT [facility] Encounters Encounter Location Date Provider Diagnosis [place] [address] [address] 11/16/2024 Darian Brunner Plan Of Treatment No Information Progress Notes * Glenn MARTI BDOB:[birth year] (80 yo M)Acc No.[id number]:11/16/2024 HOSP F/U Patient: Theresa PACK Glenn Faulkner Provider: Rossy Brunner MD :1945 A ge:79 Y S ex:Male Date:11/16/2024 Address:[address], [id number] Subjective: * Chief Complaints: * 1 . [facility]. * Medical History: Objective: * Vitals: Assessment: Plan: * Treatment: * * Electronic signature of Vasyl Brunner MD FAAP on 09/27/2025 at 08:46 AM EST Sign off status: Pending * Provider: Rossy Brunner MD Date: 0 11/16/2024 Generated for Printi ng/Faxing/eTransmitting on: 1 11/28/2024 08:46 AM EST
--- OUTSIDE RECORDS SUMMARY | 2025-01-15 16:30 | XMS_ITS ---
Author Organization [facility] Address [address] [place] [address] Care Team Providers Care Straw Hat Brim Cutter Operator Name Role Phone Darian Brunner Primary Care Provider Migration, Provider Unavailable Unavailable REASON FOR VISIT [facility] Encounter Medications Medication SIG (Take, [...] Active Encounters Encounter Location Date Provider Diagnosis [facility] [address] [facility] [address] [place] [address] 01/15/2025 Provider Migration Essential hypertension I10 and [...] Glenn MARTI BDOB:[birth year] (80 yo M)Acc No.[id number]:01/15/2025 Patient: Glenn GILMORE Provider: Caroline White :1945 A ge:79 Y S ex:Male Date:01/15/2025 Address:[facility] [address], [place], [id number] Pcp:Darian Brunner Subjective: * Chief Complaints: * [facility] . [facility]. * Medical History: * [...] *Please review and pick correct [facility]ulation [facility]. If intended option is not [...] Electronic signature of Prov ider Migration on 09/27/2025 at 08:46 AM EST Sign off status: Pending * Provider: Caroline cedeño Migration Date: 0 01/15/2025 Generated for Claudette hess/Vinicio/Janineitting on: 1 11/28/2024 08:46 AM EST
--- OUTSIDE RECORDS SUMMARY | 2025-04-08 06:45 | XMS_ITS ---
Author Organization [facility] Address [address] [place] [address] Care Team Providers Care Scheduler Maintenance Name Role Phone Darian Brunner Primary Care Provider Lisa Jones Unavailable [phone] REASON FOR VISIT med ck Encounters Encounter Location Date Provider Diagnosis [address] [address] 04/08/2025 Lisa Jones Plan Of Treatment No Information Progress Notes * Glenn MARTI BDOB:[birth year] (80 yo M)Acc No.[id number]:04/08/2025 Progress Notes Patient: Theresa PACK Glenn Faulkner Provider: Theresa Jones APRN :1945 A ge:79 Y S ex:Male Date:04/08/2025 Address:[address] [place] [id number] Pcp:Darian Brunner Subjective: * Chief Complaints: * 1 . Med ck. * Medical History: Objective: * Vitals: Assessment: Plan: * Treatment: * * Electronic signature of Leni Jones APRN on 09/27/2025 at 08:47 AM EST Sign off status: Pending * Provider: Theresa Jones APRN Date: 0 04/08/2025 Generated for Printi ng/Faxing/eTransmitting on: 1 11/28/2024 08:47 AM EST
--- OUTSIDE RECORDS SUMMARY | 2025-06-30 06:15 | XMS_ITS ---
Author Organization [facility] PE D CAT[place] Address [address] [place] [address] Care Team Providers Care Occupational Work Experience Teacher Name Role Phone Darian Brunner Primary Care Provider REASON FOR VISIT 2 weeks, ED FU d/c 06/22/2025 Encounters Encounter Location Date Provider Diagnosis [address] [address] 06/30/2025 Darian Brunner Plan Of Treatment No Information Progress Notes * Glenn MARTI BDOB:[birth year] (80 yo M)Acc No.[id number]:06/30/2025 Progress Notes Patient: Glenn GILMORE Lucie Provider: Rossy Brunner MD :1945 A ge:80 Y S ex:Male Date:06/30/2025 Address:[facility] [address], [place], [id number] Subjective: * Chief Complaints: * 1 . 2 weeks, ED FU d/c 06/22/2025. * Medical History: Objective: * Vitals: Assessment: Plan: * Treatment: * * Electronic signature of Vasyl Brunner MD FAAP on 09/27/2025 at 08:45 AM EST Sign off status: Pending * Provider: Rossy Brunner MD Date: 0 06/30/2025 Generated for Printi ng/Faxing/eTransmitting on: 1 11/28/2024 08:45 AM EST
--- OUTSIDE RECORDS SUMMARY | 2025-07-21 06:45 | XMS_ITS ---
Author Organization [facility] Address [address] [place] [address] Care Team Providers Care Web Content Specialist Name Role Phone Darian Brunner Primary Care Provider [phone] REASON FOR VISIT [facility] D/C 07/14/2025 Encounters Encounter Location Date Provider Diagnosis [address] [address] 07/21/2025 Darian Brunner Plan Of Treatment No Information Progress Notes * Glenn MARTI BDOB:[birth year] (80 yo M)Acc No.[id number]:07/21/2025 HOSP F/U Patient: Glenn GILMORE Lucie Provider: Rossy Brunner MD :1945 A ge:80 Y S ex:Male Date:07/21/2025 Address:[facility] [place] [id number] Subjective: * Chief Complaints: * 1 . [facility] D/C 07/14/2025. * Medical History: Objective: * Vitals: Assessment: Plan: * Treatment: * * Electronic signature of Vasyl Brunner MD FAAP on 09/27/2025 at 08:45 AM EST Sign off status: Pending * Provider: Rossy Brunner MD Date: 1 Generated for Printi ng/Faxing/eTransmitting on: 1 11/28/2024 08:45 AM EST
--- OUTSIDE RECORDS SUMMARY | 2025-08-16 06:30 | XMS_ITS ---
Author Organization [facility] Address [address] [place] [address] Care Team Providers Care Chief Business Officer Name Role Phone Darian Brunner Primary Care Provider REASON FOR VISIT 3 week fu Encounters Encounter Location Date Provider Diagnosis [address] [address] 08/16/2025 Darian Brunner Plan Of Treatment No Information Progress Notes * Glenn MARTI BDOB:[birth year] (80 yo M)Acc No.[id number]:08/16/2025 Progress Notes Patient: Glenn GILMORE Provider: Rossy Brunner MD :1945 A ge:80 Y S ex:Male Date:08/16/2025 Address:[facility] [address] [place] [id number] Subjective: * Chief Complaints: * 1 . 3 week fu. * Medical History: Objective: * Vitals: Assessment: Plan: * Treatment: * * Electronic signature of Vasyl Brunner MD FAAP on 09/27/2025 at 08:47 AM EST Sign off status: Pending * Provider: Rossy Brunner MD Date: 10/16/2024 Generated for Printi ng/Faxing/eTransmitting on: 11/28/2024 08:47 AM EST
[2025-09-27] VITALS (10 sets, daily range): BP systolic 135–152; BP diastolic 59–77; PULSE 72–84; RESP 20; TEMP 36.5–36.8; O2SAT 97–98; BMI 30.4
--- OUTSIDE RECORDS SUMMARY | 2025-09-27 08:46 | XMS_ITS | Patient Health Record ---
Author Organization [facility] Address [address] [facility] [address] [place] [address] Care Team Providers Care Slusher Operator Name Role Phone Darian Brunner Primary Care Provider Gemzainab Lisa Unavailable [phone] Migration, Provider Unavailable Unavailable Allergies No Known [...] review and pick correct strength-formulati on from Agency Entouragean options. 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, 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) Active confirmed Problem COPD - Chronic obstructive pulmonary disease (09523680) Chronic obstructive pulmonary disease, unspecified COPD type (J44.9) Active confirmed Problem Obese class II (507625022297007) BMI 37.0-37.9, adult (Z68.37) Active confirmed Problem Essential tremor (142444405) Benign essential tremor (G25.0) Active confirmed Problem Lower urinary tract symptoms due to benign prostatic hypertrophy (01343125929505) Benign prostatic hyperplasia with lower urinary tract symptoms, unspecified morphology (N40.1) Active confirmed Problem Contracture of palmar fascia (330193949) Dupuytren's contracture of both hands (M72.0) Active confirmed Problem Pain due to neoplastic disease (71326330125244) 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) Active confirmed Problem Myelodysplastic syndrome (544777896) 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) Active confirmed Vital Signs Heart Rate 58 /min 07/26/2025 Temperature 98 degrees Fahrenheit 07/26/2025 Blood pressure diastolic 62 mm Hg 07/26/2025 Height 5 ft 8 in in 07/26/2025 Blood pressure systolic 118 mm Hg 07/26/2025 Weight 215 lbs 07/26/2025 BMI 32.69 kg/m2 07/26/2025 Encounters Encounter Location Date Provider Diagnosis [facility] [address] [place], [place] [address] 01/15/2025 Provider Migration Essential hypertension I10 and ADELINE (generalized anxiety disorder) F41.[address] [address] 12/31/2024 Lisa McDwaine Paroxysmal atrial fibrillation I48.0 ; MDS (myelodysplastic syndrome) D46.9 ; Tremor R25.1 ; Benign prostatic hyperplasia with lower urinary tract symptoms, unspecified morphology N40.1 ; Essential (primary) hypertension I10 ; Chronic obstructive pulmonary disease, unspecified COPD type J44.9 ; Dupuytren's contracture of both hands M72.0 ; ADELINE (generalized anxiety disorder) F41.1 ; Mixed hyperlipidemia E78.2 and Arthritis, multiple joint involvement M12.[address] [address] 04/12/2025 Darian Brunner Acute non-recurrent maxillary sinusitis J01.00 ; Mixed hyperlipidemia E78.2 ; Essential (primary) hypertension I10 and MDS (myelodysplastic syndrome) D46.[address] [address] 06/16/2025 Darian Brunner Mechanical low back pain M54.59 ; Cancer related pain G89.3 ; Essential hypertension I10 ; ADELINE (generalized anxiety disorder) F41.1 ; MDS (myelodysplastic syndrome) D46.9 ; Routine medical exam Z00.00 and Immunization(s) administered Z23 [address] [address] 07/26/2025 Darian Brunner MDS (myelodysplastic syndrome) D46.9 ; Cancer related pain G89.3 ; Generalized anxiety disorder F41.1 ; Hospital discharge follow-up Z09 and Rash R21 [facility] [address] [place] [address] 10/04/2024 Darian Besson Cancer related pain G89.3 [facility] [address] [place] [address] 10/11/2024 Darian Besson Seasonal allergies J30.2 [facility] [address] [place] [address] 12/17/2024 Darian Besson ADELINE (generalized anxiety disorder) F41.1 [facility] [address] [place] [address] 12/31/2024 Lisa McNees Essential hypertensi on I10 [facility] [address] [place] [address] 12/31/2024 Darian Besson [facility] [address] [place] [address] 01/25/2025 Darian Besson Cancer related pain G89.3 [facility] [address] [place] [address] 02/25/2025 Darian Besson [facility] [address] [place] [address] 03/02/2025 Darian Besson Cancer related pain G89.3 [facility] [address] [place] [address] 04/04/2025 Darian Besson Cancer related pain G89.3 [facility] [address] [place] [address] 04/05/2025 Darian Besson Cancer related pain G89.3 [facility] [address] [place] [address] 04/13/2025 Darian Besson [facility] [address] [place] [address] 05/04/2025 Darian Besson [facility] [address] [place] [address] 05/05/2025 Darian Besson Cancer related pain G89.3 [facility] [address] [place] [address] 06/06/2025 Darian Besson Cancer related pain G89.3 [facility] [address] [place] [address] 06/23/2025 Darian Besson [facility] [address] [place] [address] 07/07/2025 Darian Besson Cancer related pain G89.3 [facility] [address] [place] [address] 07/14/2025 Darian Besson [facility] [address] [place] [address] 07/27/2025 Darian Besson Rash R21 [facility] [address] [address] 08/08/2025 Darian Besson Cancer related pain G89.3 [facility] [address] [place] [address] 08/15/2025 Darian Besson [facility] [address] [place] [address] 09/06/2025 Darian Besson Cancer related pain G89.3 [facility] [address] [place] [address] 09/21/2025 Darian Besson Generalized anxiety disorder F41.1 Assessments Encounter Date Diagnosis (ICD Code) [...] 09/06/2025 Cancer related pain (ICD-10 - G89.3) 09/21/2025 Generalized anxiety disorder (ICD-10 - F41.1) 07/26/2025 Generalized anxiety disorder (ICD-10 - F41.1) [...] End Date MEDICARE [place] [address] [id number] Glenn Marti Self - patient is the insured MEDICAID EDS [address] [place] [id number] Glenn Marti Self - patient is the insured [employer] [address] [place] [address] [address] [place] [address] ACL Glenn Marti Self - patient is [...] Surgery Date(Month/Year) Hospitalization History Reason Date(Month/Year) Cancer- [facility] kidney stone
--- OUTSIDE RECORDS SUMMARY | 2025-09-27 08:47 | XMS_ITS | Referral Summary ---
Author Organization [employer] ([place], [place], [place], [place], [place]) Address [address] [place] [address] Care Team Providers Care Plastic Tubing Insulation Supervisor Name Role Phone Darian Brunner MD Primary Care Provider + [phone] Allergies No known active allergies Medications acyclovir [...] Date Celestino rded Speak language other than Estonian at home Not on file 12/25/2023 Want [...] on file Medical Devices Implanted Type Area Covered Buckle Assembler Device Identifier Shelf Expiration Date Model / Serial / Lot Iol Uv Jared +21.0 [id number] - [id number] Implanted:Qty: 1 on 11/18/2024 by Julianna Mendez MD at [facility] IMPLANTS Right: Eye ANDRÉS 08/12/2027 [id number] / [id number] / Iol Uv Clareon +20.5 [id number] - [id number] Implanted:Qty: 1 on 12/16/2024 by Julianna Mendez MD at [facility] IMPLANTS Left: Eye ANDRÉS 09/01/2027 [id number] / [id number] / Insurance MEDICARE PART A B MEDICAID QMB Care Teams Plastic Tubing Insulation Supervisor Relationship Specialty Start Date End Date Darian Brunner MD [address] [place] [address] PCP - General Adolescent Medicine 01/01/24
--- OUTSIDE RECORDS SUMMARY | 2025-09-27 08:47 | XMS_ITS | Clinical Summary ---
Author Organization [employer] ([place], [place], [place], [place], [place]) Address [address] [place] [address] Care Team Providers Care Seismic Prospecting Observer Helper Name Role Phone Darian Brunner MD Primary Care Provider + [phone] Allergies No known active allergies Medications acyclovir [...] Date Celestino rded Speak language other than Icelandic at home Not on file 12/25/2023 Want [...] Completed 10/24/2023, Medical Devices Implanted Type Area Olap Developer Device Identifier Shelf Expiration Date Model / Serial / Lot Iol Uv Clareon +21.0 [id number] - [id number] Implanted:Qty: 1 on 11/18/2024 by Julianna Mendez MD at [facility] IMPLANTS Right: Eye ANDRÉS 08/12/2027 [id number] / [id number] / Iol Uv Clareon +20.5 [id number] - [id number] Implanted:Qty: 1 on 12/16/2024 by Julianna Mendez MD at [facility] IMPLANTS Left: Eye ANDRÉS 09/01/2027 [id number] / [id number] / Insurance MEDICARE PART A B MEDICAID B Care Teams Seismic Prospecting Observer Helper Relationship Specialty Start Date End Date Darian Brunner MD [address] [place] [address] PCP - General Adolescent Medicine 01/01/24
[2025-09-27 09:02] LABS: Hematocrit 23.4 % (42.0-52.0); Hemoglobin 7.6 g/dL (14.1-18.0); Immature Granulocytes % 1.7 %; Mean Corpuscular HGB Conc 32.5 g/dL (31.8-35.4); Mean Corpuscular Hemoglobin 32.6 pg (27.0-31.2); Mean Corpuscular Volume 100.4 fl (80-94); Nucleated Red Blood Cells % 0 %; Red Blood Count 2.33 M/mm3 (4.60-6.20); Red Cell Distribution Width-SD 85.8 fL
[2025-09-27 09:19] LABS: Platelet Count 15 K/mm3 (142-424); White Blood Count 1.2 K/mm3 (4.8-10.8)
--- NOTE | 2025-09-27 10:10 | PC.NURSE ---
0918 Salma Sutton called nursing staff to report wbc-1.2 and plt 15. RN repeated and verified pt name, , and lab values. Result called to Dr. Whitt-new orders noted for blood transfusion.
[2025-09-27] MEDS: 0.9 % SODIUM CHLORIDE 250 ML 25 ML IV (10:18)
[2025-09-27 10:40] LABS: Total Cells Counted 50
[2025-09-27 10:41] LABS: RBC Morphology Normal
== END 2025-09-27 23:59 | disposition home or self-care (01) ==
LOC: INF 08:44
PROVIDERS: PCP Internal Medicine Adolescent Medicine; Visit Provider Internal Medicine Medical Oncology
DX: D46.9 Myelodysplastic syndrome, unspecified (principal)
CPT/HCPCS: 36430; 85007; 85025; 85027; 86850; J7050; P9016

== ENCOUNTER 2025-10-03 08:21 | Outpatient (CLI) | payer MEDICARE, MEDICAID, SELFPAY ==
--- OUTSIDE RECORDS SUMMARY | 2024-11-16 07:30 | XMS_ITS ---
Author Organization [facility] PE D [facility] Address [address] [place] [address] Care Team Providers Care Fur Cleaner Name Role Phone Darian Brunner Primary Care Provider REASON FOR VISIT [facility] Encounters Encounter Location Date Provider Diagnosis [place] [address] [address] 11/16/2024 Darian Brunner Plan Of Treatment No Information Progress Notes * Glenn MARTI BDOB:[birth year] (80 yo M)Acc No.[id number]:11/16/2024 HOSP F/U Patient: Theresa PACK Glenn Faulkner Provider: Rossy rBunner MD :1945 A ge:79 Y S ex:Male Date:11/16/2024 Address:[address], [id number] Subjective: * Chief Complaints: * 1 . [facility]. * Medical History: Objective: * Vitals: Assessment: Plan: * Treatment: * * Electronic signature of Vasyl Brunner MD FAAP on 10/03/2025 at 08:25 AM EST Sign off status: Pending * Provider: Rossy Brunner MD Date: 0 11/16/2024 Generated for Printi ng/Faxing/eTransmitting on: 1 12/04/2024 08:25 AM EST
--- OUTSIDE RECORDS SUMMARY | 2025-01-15 16:30 | XMS_ITS ---
Author Organization [facility] Address [address] [place] [address] Care Team Providers Care Utilization Management Manager Name Role Phone Darian Brunner Primary Care Provider Migration, Provider Unavailable Unavailable REASON FOR VISIT [facility] Encounter Medications Medication SIG (Take, [...] Encounters Encounter Location Date Provider Diagnosis [facility] [address] [facility] [address] [place] [address] 01/15/2025 Provider Migration Essential hypertension I10 and [...] Glenn MARTI BDOB:[birth year] (80 yo M)Acc No.[id number]:01/15/2025 Patient: Glenn GILMORE Provider: Caroline White :1945 A ge:79 Y S ex:Male Date:01/15/2025 Address:[facility] [address], [place], [place] Pcp:Darian Brunner Subjective: * Chief Complaints: * [facility] . [facility]. * Medical History: * [...] *Please review and pick correct strength-formulation from [facility] options. If intended option is not [...] Electronic signature of Prov ider Migration on 10/03/2025 at 08:25 AM EST Sign off status: Pending * Provider: Caroline cedeño Migration Date: 0 01/15/2025 Generated for Claudette hess/Vinicio/Janineitting on: 1 12/04/2024 08:25 AM EST
--- OUTSIDE RECORDS SUMMARY | 2025-04-08 06:45 | XMS_ITS ---
Author Organization [facility] D [place] Address [address] [place] [address] Care Team Providers Care Retail Team Leader Name Role Phone Darian Brunner Primary Care Provider [phone] Lisa Jones Unavailable [phone] REASON FOR VISIT med ck Encounters Encounter Location Date Provider Diagnosis [address] [address] 04/08/2025 Lisa Jones Plan Of Treatment No Information Progress Notes * Glenn MARTI BDOB:[birth year] (80 yo M)Acc No.[id number]:04/08/2025 Progress Notes Patient: Theresa PACK Glenn Faulkner Provider: Theresa Jones APRN :1945 A ge:79 Y S ex:Male Date:04/08/2025 Address:[address] [id number] Pcp:Darian Brunner Subjective: * Chief Complaints: * 1 . Med ck. * Medical History: Objective: * Vitals: Assessment: Plan: * Treatment: * * Electronic signature of Leni Jones APRN on 10/03/2025 at 08:25 AM EST Sign off status: Pending * Provider: Theresa Jones APRN Date: 0 04/08/2025 Generated for Printi ng/Faxing/eTransmitting on: 1 12/04/2024 08:25 AM EST
--- OUTSIDE RECORDS SUMMARY | 2025-06-30 06:15 | XMS_ITS ---
Author Organization [facility] PE D CATAR[place] Address [address] [place] [address] Care Team Providers Care Enterprise Mobility Architect Name Role Phone Darian Brunner Primary Care Provider [phone] REASON FOR VISIT 2 weeks, ED FU d/c 06/22/2025 Encounters Encounter Location Date Provider Diagnosis [address] [address] 06/30/2025 Darian Brunner Plan Of Treatment No Information Progress Notes * Glenn MARTI BDOB:[birth year] (80 yo M)Acc No.[id number]:06/30/2025 Progress Notes Patient: Glenn GILMORE Lucie Provider: Rossy Brunner MD :1945 A ge:80 Y S ex:Male Date:06/30/2025 Address:[facility] [address], [place], [id number] Subjective: * Chief Complaints: * 1 . 2 weeks, ED FU d/c 06/22/2025. * Medical History: Objective: * Vitals: Assessment: Plan: * Treatment: * * Electronic signature of Vasyl Brunner MD FAAP on 10/03/2025 at 08:24 AM EST Sign off status: Pending * Provider: Rossy Brunner MD Date: 0 06/30/2025 Generated for Printi ng/Faxing/eTransmitting on: 1 12/04/2024 08:24 AM EST
--- OUTSIDE RECORDS SUMMARY | 2025-07-21 06:45 | XMS_ITS ---
Author Organization [facility] [place] Address [address] [place] [address] Care Team Providers Care Crepe Machine Operator Name Role Phone Darian Brunner Primary Care Provider [phone] REASON FOR VISIT [facility] D/C 07/14/2025 Encounters Encounter Location Date Provider Diagnosis [address] [address] 07/21/2025 Darian Brunner Plan Of Treatment No Information Progress Notes * Glenn MARTI BDOB:[birth year] (80 yo M)Acc No.[id number]:07/21/2025 HOSP F/U Patient: Theresa PACK Glenn Faulkner Provider: Rossy Brunner MD :1945 A ge:80 Y S ex:Male Date:07/21/2025 Address:[facility] [id number] Subjective: * Chief Complaints: * 1 . [facility] D/C 07/14/2025. * Medical History: Objective: * Vitals: Assessment: Plan: * Treatment: * * Electronic signature of Vasyl Brunner MD FAAP on 10/03/2025 at 08:25 AM EST Sign off status: Pending * Provider: Rossy Brunner MD Date: 1 Generated for Printi ng/Faxing/eTransmitting on: 12/04/2024 08:25 AM EST
--- OUTSIDE RECORDS SUMMARY | 2025-08-16 06:30 | XMS_ITS ---
Author Organization [facility] Address [address] [place] [address] Care Team Providers Care Diploma Dental Assistant Name Role Phone Darian Brunner Primary Care Provider REASON FOR VISIT 3 week fu Encounters Encounter Location Date Provider Diagnosis [address] [address] 08/16/2025 Darian Brunner Plan Of Treatment No Information Progress Notes * Glenn MARTI BDOB:[birth year] (80 yo M)Acc No.[id number]:08/16/2025 Progress Notes Patient: Glenn GILMORE Provider: Rossy Brunner MD :1945 A ge:80 Y S ex:Male Date:08/16/2025 Address:[facility] [address] [place] [id number] Subjective: * Chief Complaints: * 1 . 3 week fu. * Medical History: Objective: * Vitals: Assessment: Plan: * Treatment: * * Electronic signature of Vasyl Brunner MD FAAP on 10/03/2025 at 08:26 AM EST Sign off status: Pending * Provider: Rossy Brunner MD Date: 10/16/2024 Generated for Printi ng/Faxing/eTransmitting on: 12/04/2024 08:26 AM EST
[2025-10-03] VITALS (11 sets, daily range): BP systolic 102–152; BP diastolic 54–76; PULSE 64–78; RESP 18; TEMP 36.4–36.6; O2SAT 98; BMI 30.4
--- OUTSIDE RECORDS SUMMARY | 2025-10-03 08:25 | XMS_ITS | Patient Health Record ---
Author Organization [facility] Address [address] [facility] [address] [place] [address] Care Team Providers Care Foundation Maker Name Role Phone Darian Brunner Primary Care Provider Gemzainab Lisa Unavailable [phone] Migration, Provider Unavailable Unavailable Allergies No Known Allergies Reason For Referral No Information Medications Medication SIG (Take, Route, Frequency, Duration) Notes Start Date End Date Status Omeprazole Magnesium 20 MG 1 cap(s) orally once a day; Duration: 90 days Active busPIRone HCl 10 MG 1-2 orally [...] review and pick correct strength-formulati on from icanbuyspan options. 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) Active confirmed Problem COPD - Chronic obstructive pulmonary disease (88749350) Chronic obstructive pulmonary disease, unspecified COPD type (J44.9) Active confirmed Problem Obese class II (253346803133579) BMI 37.0-37.9, adult (Z68.37) Active confirmed Problem Essential tremor (687969512) Benign essential tremor (G25.0) Active confirmed Problem Lower urinary tract symptoms due to benign prostatic hypertrophy (67558613686954) Benign prostatic hyperplasia with lower urinary tract symptoms, unspecified morphology (N40.1) Active confirmed Problem Contracture of palmar fascia (330040774) Dupuytren's contracture of both hands (M72.0) Active confirmed Problem Pain due to neoplastic disease (44900693609315) 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) Active confirmed Problem Myelodysplastic syndrome (133102913) 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) Active confirmed Vital Signs Heart Rate 58 /min 07/26/2025 Temperature 98 degrees Fahrenheit 07/26/2025 Blood pressure diastolic 62 mm Hg 07/26/2025 Height 5 ft 8 in in 07/26/2025 Blood pressure systolic 118 mm Hg 07/26/2025 Weight 215 lbs 07/26/2025 BMI 32.69 kg/m2 07/26/2025 Encounters Encounter Location Date Provider Diagnosis [facility] [address] [place], [place] [address] 01/15/2025 Provider Migration Essential hypertension I10 and ADELINE (generalized anxiety disorder) F41.[address] [address] 12/31/2024 Lisa McDwaine Paroxysmal atrial fibrillation I48.0 [...] E78.2 and Arthritis, multiple joint involvement M12.[address] [address] 04/12/2025 Darian Brunner Acute non-recurrent maxillary sinusitis J01.00 ; Mixed hyperlipidemia E78.2 ; Essential (primary) hypertension I10 and MDS (myelodysplastic syndrome) D46.[address] [address] 06/16/2025 Darian Brunner Mechanical low back pain M54.59 ; Cancer related pain G89.3 ; Essential hypertension I10 ; ADELINE (generalized anxiety disorder) F41.1 ; MDS (myelodysplastic syndrome) D46.9 ; Routine medical exam Z00.00 and Immunization(s) administered Z23 [address] [address] 07/26/2025 Darian Brunner MDS (myelodysplastic syndrome) D46.9 ; Cancer related pain G89.3 ; Generalized anxiety disorder F41.1 ; Hospital discharge follow-up Z09 and Rash R21 [facility] [address] [place] [address] 10/04/2024 Darian Besson Cancer related pain G89.3 [facility] [address] [place] [address] 10/11/2024 Darian Besson Seasonal allergies J30.2 [facility] [address] [place] [address] 12/17/2024 Darian Besson ADELINE (generalized anxiety disorder) F41.1 [facility] [address] [place] [address] 12/31/2024 Lisa McNees Essential hypertensi on I10 [facility] [address] [place] [address] 12/31/2024 Darian Besson [facility] [address] [place] [address] 01/25/2025 Darian Besson Cancer related pain G89.3 [facility] [address] [place] [address] 02/25/2025 Darian Besson [facility] [address] [place] [address] 03/02/2025 Darian Besson Cancer related pain G89.3 [facility] [address] [place] [address] 04/04/2025 Darian Besson Cancer related pain G89.3 [facility] [address] [place] [address] 04/05/2025 Darian Besson Cancer related pain G89.3 [facility] [address] [place] [address] 04/13/2025 Darian Besson [facility] [address] [place] [address] 05/04/2025 Darian Besson [facility] [address] [place] [address] 05/05/2025 Darian Besson Cancer related pain G89.3 [facility] [address] [place] [address] 06/06/2025 Darian Besson Cancer related pain G89.3 [facility] [address] [place], [place] [address] 06/23/2025 Darian Besson [facility] [address] [address] 07/07/2025 Darian Besson Cancer related pain G89.3 [facility] [address] [place], [place] [address] 07/14/2025 Darian Besson [facility] [address] [place] [address] 07/27/2025 Darian Besson Rash R21 [facility] [address] [address] 08/08/2025 Darian Besson Cancer related pain G89.3 [facility] [address] [facility] [address] [place], [place] [address] 08/15/2025 Darian Besson [facility] [address] [address] 09/06/2025 Darian Besson Cancer related pain G89.3 [facility] [address] [address] 09/21/2025 Darian Besson Generalized anxiety disorder F41.1 [facility] [address] [address] 09/29/2025 Darian Besson Generalized anxiety disorder F41.1 Assessments Encounter Date Diagnosis (ICD Code) Assessment Notes Treatment Notes Treatment Clinical Notes Section Notes 12/31/2024 Essential hypertension (ICD-10 - I10) 10/04/2024 Cancer related pain (ICD-10 - G89.3) 04/12/2025 Acute non-recurrent maxillary sinusitis (ICD-10 - J01.00) - One week history of nasal congestion, sinus pressure - Tender to palpation of maxillary sinus R>L - Denies fever, chills, cough or worsening SOB - Complains of copius purulent discharge - Rx for amoxicillan - Symptomatic management with OTC saline sasal irrigation 10/11/2024 Seasonal allergies (ICD-10 - J30.2) 12/17/2024 ADELINE (generalized anxiety disorder) (ICD-10 - F41.1) 12/31/2024 Paroxysmal atrial fibrillation (ICD-10 - I48.0) Regular and rate controlled. Keep FU with cardiology 12/31/2024 MDS (myelodysplastic syndrome) (ICD-10 - D46.9) Stable at this time. Keep FU with oncology. Dr. Whitt note reviewed 04/04/2025 Cancer related pain (ICD-10 - G89.3) 04/12/2025 Mixed hyperlipidemia (ICD-10 - E78.2) - LDL at goal - Continue atorvastatin 05/05/2025 Cancer related pain (ICD-10 - G89.3) 06/06/2025 Cancer related pain (ICD-10 - G89.3) 07/26/2025 [...] had. We discussed following up with heme-onc 08/08/2025 Cancer related pain (ICD-10 - G89.3) 09/06/2025 Cancer related pain (ICD-10 - G89.3) 09/29/2025 Generalized anxiety disorder (ICD-10 - F41.1) 04/05/2025 Cancer related pain (ICD-10 - G89.3) 03/02/2025 Cancer related pain (ICD-10 - G89.3) 01/25/2025 Cancer related pain (ICD-10 - G89.3) 01/15/2025 Essential hypertension (ICD-10 - I10) 09/21/2025 Generalized anxiety disorder (ICD-10 - F41.1) 07/27/2025 Rash (ICD-10 - R21) 07/07/2025 Cancer related pain (ICD-10 - G89.3) [...] are good control, no change in plans 07/26/2025 Generalized anxiety disorder (ICD-10 - F41.1) Will increase buspirone. I also think he needs a better night sleep. At this stage and disease I have no problem administering benzodiazepine. Will start clonazepam at night to help with sleep. We may need to increase this for anxiety also 04/12/2025 Essential (primary) hypertension (ICD-10 - I10) [...] in the hospital. Personally reconciled medication. 12/31/2024 Benign prostatic hyperplasia with lower urinary [...] A1C 10/18/2021 M-Lipid Panel 10/21/2022 M-Lipid Panel 02/21/2023 M-Lipid Panel 12/31/2024 M-Lipid Panel 05/31/2022 M-Lipid Panel 10/18/2021 M-PSA Total+% Free 05/31/2022 Insurance Providers Payer Name Payer Address Payer Phone Subscriber Number Group Number Insured Name Patient Relationship to Insured Coverage Start Date Coverage End Date MEDICARE [place] [place] [address] [id number] Glenn Marti Self - patient is the insured MEDICAID EDS [address] [place] [id number] Glenn Marti Self - patient is the insured [employer] [address] [place] [address] [phone] [id number] Glenn Marti Self - patient is [...]
--- OUTSIDE RECORDS SUMMARY | 2025-10-03 08:26 | XMS_ITS | Referral Summary ---
Author Organization [email or web address] ([place], [place], [place], [place], [place]) Address [address] [place] [address] Care Team Providers Care Health Promotion Educator Name Role Phone Darian Brunner MD Primary Care Provider + [phone] Allergies No known active allergies Medications acyclovir [...] Date Celestino rded Speak language other than Tamazight at home Not on file 12/25/2023 Want [...] on file Medical Devices Implanted Type Area Skin Diving Teacher Device Identifier Shelf Expiration Date Model / Serial / Lot Iol Uv Jared +21.0 [id number] - [id number] Implanted:Qty: 1 on 11/18/2024 by Julianna Mendez MD at [facility] IMPLANTS Right: Eye ANDRÉS 08/12/2027 [id number] / [id number] / Iol Uv Clareon +20.5 [id number] - [id number] Implanted:Qty: 1 on 12/16/2024 by Julianna Mendez MD at [facility] IMPLANTS Left: Eye ANDRÉS 09/01/2027 [id number] / [id number] / Insurance MEDICARE PART A B MEDICAID QMB Care Teams Health Promotion Educator Relationship Specialty Start Date End Date Darian Brunner MD [address] [place] [address] PCP - General Adolescent Medicine 01/01/24
--- OUTSIDE RECORDS SUMMARY | 2025-10-03 08:26 | XMS_ITS | Clinical Summary ---
Author Organization [employer] ([place], [place], [place], [place], [place]) Address [address] [place] [address] Care Team Providers Care Pegger Dobby Looms Name Role Phone Darian Brunner MD Primary Care Provider + [phone] Allergies No known active allergies Medications acyclovir [...] Date Celestino rded Speak language other than Maori at home Not on file 12/25/2023 Want [...] Completed 10/24/2023, Medical Devices Implanted Type Area Paint Mixer Device Identifier Shelf Expiration Date Model / Serial / Lot Iol Uv Clareon +21.0 [id number] - [id number] Implanted:Qty: 1 on 11/18/2024 by Julianna Mendez MD at [facility] IMPLANTS Right: Eye ANDRÉS 08/12/2027 [id number] / [id number] / Iol Uv Clareon +20.5 [id number] - [id number] Implanted:Qty: 1 on 12/16/2024 by Julianna Mendez MD at [facility] IMPLANTS Left: Eye ANDRÉS 09/01/2027 [id number] / [id number] / Insurance MEDICARE PART A B MEDICAID B Care Teams Pegger Dobby Looms Relationship Specialty Start Date End Date Darian Brunner MD [address] [place] [address] PCP - General Adolescent Medicine 01/01/24
[2025-10-03 08:41] LABS: Hematocrit 22.5 % (42.0-52.0); Hemoglobin 7.6 g/dL (14.1-18.0); Immature Granulocytes % 0.8 %; Mean Corpuscular HGB Conc 33.8 g/dL (31.8-35.4); Mean Corpuscular Hemoglobin 33.5 pg (27.0-31.2); Mean Corpuscular Volume 99.1 fl (80-94); Nucleated Red Blood Cells % 0 %; Red Blood Count 2.27 M/mm3 (4.60-6.20); Red Cell Distribution Width-SD 83.8 fL
--- NOTE | 2025-10-03 08:42 | PC.NURSE ---
0842-collected labs via venipuncture stick in left ac with butterfly needle
[2025-10-03 08:43] LABS: Platelet Count 9 K/mm3 (142-424); White Blood Count 1.3 K/mm3 (4.8-10.8)
[2025-10-03 09:54] LABS: Total Cells Counted 25
[2025-10-03 09:56] LABS: RBC Morphology Normal
[2025-10-03] MEDS: 0.9 % SODIUM CHLORIDE 250 ML 25 ML IV (10:55)
== END 2025-10-03 23:59 | disposition home or self-care (01) ==
PROVIDERS: PCP Internal Medicine Adolescent Medicine; Visit Provider Internal Medicine Medical Oncology
DX: D46.9 Myelodysplastic syndrome, unspecified (principal)
CPT/HCPCS: 36430; 85007; 85025; 85027; 86850; J7050; P9016

== ENCOUNTER 2025-10-11 08:38 | Outpatient (CLI) | payer MEDICARE, MEDICAID, SELFPAY ==
--- OUTSIDE RECORDS SUMMARY | 2024-06-15 05:00 | XMS_ITS ---
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 Name Role Phone Darian Brunner Primary Care Provider [phone] REASON FOR VISIT possible UTI Encounters Encounter Location Date Provider Diagnosis [address] [address] 06/15/2024 Darian Brunner Plan Of Treatment No Information Progress Notes * Glenn MARTI BDOB:[birth year] (80 yo M)Acc No.[id number]:06/15/2024 Progress Notes Patient: Glenn Ibanez Lucie Provider: Rossy Brunner MD :1945 A ge:79 Y S ex:Male Date:06/15/2024 Address:[facility] [address], [place] [id number] Subjective: * Chief Complaints: * p ossible UTI * Electronic signature of Vasyl Brunner MD FAAP on 10/11/2025 at 08:44 AM EST Sign off status: Pending * Provider: Rossy Brunner MD Date: 0 06/15/2024 Generated for Printi ng/Faxing/eTransmitting on: 1 08:44 AM EST
--- OUTSIDE RECORDS SUMMARY | 2024-07-02 04:30 | XMS_ITS ---
Author Organization [facility] Address [address] [place] [address] Care Team Providers Care Plastic Sheeting Cutter Name Role Phone Darian Brunner Primary Care Provider [phone] Lisa Jones Unavailable [phone] REASON FOR VISIT 3 mo FU Encounters Encounter Location Date Provider Diagnosis [address] [address] 07/02/2024 Lisa Jones Plan Of Treatment No Information Progress Notes * Glenn MARTI BDOB:[birth year] (80 yo M)Acc No.[id number]:07/02/2024 Progress Notes Patient: Theresa tylerGlenn Provider: Theresa Jones APRN :1945 A ge:79 Y S ex:Male Date:07/02/2024 Address:[address] [id number] Pcp:Darian Brunner Subjective: * Chief Complaints: * 3 mo FU * Electronic signature of Leni Jones APRN on 10/11/2025 at 08:44 AM EST Sign off status: Pending * Provider: Theresa Jones APRN Date: 0 07/02/2024 Generated for Printi ng/Faxing/eTransmitting on: 1 08:44 AM EST
--- OUTSIDE RECORDS SUMMARY | 2024-11-16 07:30 | XMS_ITS ---
Author Organization [facility] PE D [facility] Address [address] [place] [address] Care Team Providers Care Trauma Manager Name Role Phone Darian Brunner Primary Care Provider REASON FOR VISIT [facility] Encounters Encounter Location Date Provider Diagnosis [place] [address] [address] 11/16/2024 Darian Brunner Plan Of Treatment No Information Progress Notes * Glenn MARTI BDOB:[birth year] (80 yo M)Acc No.[id number]:11/16/2024 HOSP F/U Patient: Theresa tylerGlenn Provider: Rossy Brunner MD :1945 A ge:79 Y S ex:Male Date:11/16/2024 Address:[address], [id number] Subjective: * Chief Complaints: * H [facility] Billing Information: * Procedure Codes: * Electronic signature of Vasyl Brunner MD FAAP on 10/11/2025 at 08:44 AM EST Sign off status: Pending * Provider: Rossy Brunner MD Date: 0 11/16/2024 Generated for Keltoni ng/Fadavidg/eTransmitting on: 1 08:44 AM EST
--- OUTSIDE RECORDS SUMMARY | 2025-01-15 16:30 | XMS_ITS ---
Author Organization [facility] Address [address] [facility] [address] [place] [address] Care Team Providers Care Telegraph Dispatcher Name Role Phone Darian Brunner Primary Care Provider [phone] Migration, Provider Unavailable Unavailable REASON FOR VISIT [facility] Encounter Medications Medication SIG (Take, Route, Frequency, Duration) Notes Start Date End Date Status oxyCODONE-Acetaminophen 10-325 MG Tablet 1 tab(s) orally three times daily; Duration: 30 days 11/12/2024 Active Acyclovir 800 MG Tablet 1 tab(s) orally once a day; Duration: 10 days Active Meloxicam 15 MG Tablet 1 tab(s) orally once a day; Duration: 90 days Active Tamsulosin HCl 0.4 MG Capsule 2 caps orally once a day at bedtime; Duration: 90 days Active Cyclobenzaprine HCl 10 MG Tablet 1 tab(s) orally every 8 hrs as needed for back spasm; Duration: 90 days 06/18/2019 Active Escitalopram Oxalate 20 MG Tablet 1 tab(s) orally once a day; Duration: 90 days Active Omeprazole Magnesium 20 MG Tablet Delayed Release 1 cap(s) orally once a day; Duration: 90 days 02/09/2024 Active Breo Ellipta 100 MCG-25 MCG/INH POWDER 1 PUFF BY MOUTH ONCE DAILY DIRECTED; Duration: 90 DAYS *Please review and pick correct strength-formulati on from [facility] options. If intended option is not shown, discontinue and re-order from Quick Search* Active Ventolin HFA 108 (90 Base) MCG/ACT Aerosol Solution 2 puff(s) inhaled 4 times a day PRN SOA; Duration: 90 days 05/11/2018 Active Atorvastatin Calcium 40 MG Tablet 1 tab(s) orally once a day; Duration: 90 days 05/11/2019 Active Propranolol HCl 10 MG Tablet 1 tab(s) orally 2 times a day; Duration: 30 days Active amLODIPine Besylate 5 MG Tablet 1 tab(s) orally once a day; Duration: 90 days Active Selenium Sulfide 2.25 % Shampoo 1 miguel a applied topically 2 times a week; Duration: 30 day(s) 08/20/2019 Active ICaps AREDS Formula - Tablet as directed orally; Duration: 30 day(s) Active CHEMOTHERAPY *Please review f or potential replacement for e-prescription and drug interaction check* Active Levocetirizine Dihydrochloride 5 MG Tablet 1 tab(s) orally once a day (in the evening); Duration: 90 days Active Fluticasone Propionate 50 MCG/ACT Suspension 1 spray(s) in each nostril once a day; Duration: 90 days Active busPIRone HCl 10 MG Tablet 1-1.5 tabs orally three times a day prn anxiety; Duration: 90 days Active Encounters Encounter Location Date Provider Diagnosis [facility] [address] [facility] [address] [place] [address] 01/15/2025 Provider Migration Essential hypertension I10 and ADELINE (generalized anxiety disorder) F41.1 Assessments Encounter Date Diagnosis (ICD Code) Assessment Notes Treatment Notes Treatment Clinical Notes Section Notes 01/15/2025 Essential hypertension (ICD-10 - I10) 01/15/2025 ADELINE (generalized anxiety disorder) (ICD-10 - F41.1) Plan Of Treatment Medication Medication Name Sig Start Date Stop Date Notes amLODIPine Besylate 5 MG Tablet 1 tab(s) orally once a day; Duration: 90 days Levocetirizine Dihydrochlori de 5 MG Tablet 1 tab(s) orally once a day (in the evening); Duration: 90 days Fluticasone Propionate 50 MC G/ACT Suspension 1 spray(s) in each nostril once a day; Duration: 90 days busPIRone HCl 10 MG Tablet 1-1.5 tabs or ally three times a day prn anxiety; Duration: 90 days Progress Notes * Gelnn MARTI BDOB:[birth year] (80 yo M)Acc No.[id number]:01/15/2025 Patient: Glenn Ibanez Provider: Caroline White :1945 A ge:79 Y S ex:Male Date:01/15/2025 Address:[facility] [address] [id number] Pcp:Darian Brunner Subjective: * Chief Complaints: * M ultum To [facility] Conversion Encounter * Medications: T akingCHEMOTHERAPY , Notes to Pharmacist: *Please review for potential replacement for e-prescription and drug interaction check*ICaps AREDS Formula - Tablet as directed orally Selenium Sulfide 2.25 % Shampoo 1 miguel a applied topically 2 times a week Propranolol HCl 10 MG Tablet 1 tab(s) orally 2 times a day Atorvastatin Calcium 40 MG Tablet 1 tab(s) orally once a day Ventolin HFA 108 (90 Base) MCG/ACT Aerosol Solution 2 puff(s) inhaled 4 times a day PRN SOA Breo Ellipta 100 MCG-25 MCG/INH POWDER 1 PUFF BY MOUTH ONCE DAILY DIRECTED , Notes to Pharmacist: *Please review and pick correct strength-formulation from [facility] options. If intended option is not shown, discontinue and re-order from Quick Search*Omeprazole Magnesium 20 MG Tablet Delayed Release 1 cap(s) orally once a day Escitalopram Oxalate 20 MG Tablet 1 tab(s) orally once a day Cyclobenzaprine HCl 10 MG Tablet 1 tab(s) orally every 8 hrs as needed for back spasm Tamsulosin HCl 0.4 MG Capsule 2 caps orally once a day at bedtime Meloxicam 15 MG Tablet 1 tab(s) orally once a day Acyclovir 800 MG Tablet 1 tab(s) orally once a day oxyCODONE-Acetaminophen 10-325 MG Tablet 1 tab(s) orally three times daily Taking CHEMOTHERAPY , Notes to Pharmacist: *Please review for potential replacement for e-prescription and drug interaction check*Taking ICaps AREDS Formula - Tablet as directed orally Taking Selenium Sulfide 2.25 % Shampoo 1 miguel a applied topically 2 times a week Taking Propranolol HCl 10 MG Tablet 1 tab(s) orally 2 times a day Taking Atorvastatin Calcium 40 MG Tablet 1 tab(s) orally once a day Taking Ventolin HFA 108 (90 Base) MCG/ACT Aerosol Solution 2 puff(s) inhaled 4 times a day PRN SOA Taking Breo Ellipta 100 MCG-25 MCG/INH POWDER 1 PUFF BY MOUTH ONCE DAILY DIRECTED , Notes to Pharmacist: *Please review and pick correct strength- formulation from [facility] options. If intended option is not shown, discontinue and re-order from Quick Search*Taking Omeprazole Magnesium 20 MG Tablet Delayed Release 1 cap(s) orally once a day Taking Escitalopram Oxalate 20 MG Tablet 1 tab(s) orally once a day Taking Cyclobenzaprine HCl 10 MG Tablet 1 tab(s) orally every 8 hrs as needed for back spasm Taking Tamsulosin HCl 0.4 MG Capsule 2 caps orally once a day at bedtime Taking Meloxicam 15 MG Tablet 1 tab(s) orally once a day Taking Acyclovir 800 MG Tablet 1 tab(s) orally once a day Taking oxyCODONE-Acetaminophen 10-325 MG Tablet 1 tab(s) orally three times daily Assessment: * Assessment: 1. E ssential hypertension [...] the evening), 90 days, 90, Refills 1. Billing Information: * Procedure Codes: * Electronic signature of Prov ider Migration on 10/11/2025 at 08:44 AM EST Sign off status: Pending * Provider: Caroline cedeño Migration Date: 0 01/15/2025 Generated for Claudette hess/Vinicio/Etienne on: 08:44 AM EST
[2025-10-11] VITALS (18 sets, daily range): BP systolic 138–165; BP diastolic 67–87; PULSE 66–82; RESP 18; TEMP 36.8–36.9; O2SAT 97–100; BMI 30.4
--- OUTSIDE RECORDS SUMMARY | 2025-10-11 08:44 | XMS_ITS | Patient Health Record ---
Author Organization [facility] Address [address] [facility] [address] [place] [address] Care Team Providers Care Sr. Manager Name Role Phone Darian Brunner Primary Care Provider Gemzainab Lisa Unavailable [phone] Migration, Provider Unavailable Unavailable Allergies No Known Allergies Reason For Referral No Information Medications Medication SIG (Take, Route, Frequency, Duration) Notes Start Date End Date Status Omeprazole Magnesium 20 MG Tablet Delayed Release 1 cap(s) orally once a day; Duration: 90 days Active busPIRone HCl 10 MG Tablet 1-2 orally three times a day prn anxiety; Duration: 30 days Active oxyCODONE-Acetaminophen 10-325 MG Tablet 1 tab(s) orally three times daily; Duration: 30 days 09/06/2025 Active Triamcinolone Acetonide 0.5 % Ointment 1 miguel a applied topically 2 times a day; Duration: 7 day(s) 07/26/2025 Active Breo Ellipta 100 MCG-25 MCG/INH POWDER 1 PUFF BY MOUTH ONCE DAILY DIRECTED; Duration: 90 DAYS *Please review and pick correct strength-formulati on from [email or web address] options. If intended option is not shown, discontinue and re-order from Quick Search* Active Ventolin HFA 108 (90 Base) MCG/ACT Aerosol Solution 2 puff(s) inhaled 4 times a day PRN SOA; Duration: 90 days Active Propranolol HCl 10 MG Tablet 1 tab(s) orally 2 times a day; Duration: 30 days Active Levocetirizine Dihydrochloride 5 MG Tablet 1 tab(s) orally once a day (in the evening); Duration: 90 days Active Selenium Sulfide 2.25 % Shampoo 1 miguel a applied topically 2 times a week; Duration: 30 day(s) 08/20/2019 Active Tamsulosin HCl 0.4 MG Capsule 2 caps orally once a day at bedtime; Duration: 90 days Active Atorvastatin Calcium 40 MG Tablet 1 tab(s) orally once a day; Duration: 90 days Active ICaps AREDS Formula - Tablet as directed orally; Duration: 30 day(s) Active Procrit 3000 UNIT/ML Solution as directed Injection Active Meloxicam 15 MG Tablet 1 tab(s) orally once a day; Duration: 90 days Active Escitalopram Oxalate 20 MG Tablet 1 tab(s) orally once a day; Duration: 90 days Active clonazePAM 0.5 MG Tablet 1 tablet Orally Once a day; Duration: 30 days As needed at bedtime 09/21/2025 Active clonazePAM 0.5 MG Tablet 1 tablet Orally Once a day; Duration: 30 days As needed at bedtime 09/21/2025 Active amLODIPine Besylate 5 MG Tablet 1 tab(s) orally once a day; Duration: 90 days Active Fluticasone Propionate 50 MCG/ACT Suspension 1 spray(s) in each nostril once a day; Duration: 90 days Active Acyclovir 800 MG Tablet 1 tab(s) orally 3 times a day; Duration: 10 days Active Cyclobenzaprine HCl 10 MG Tablet [...] stop date) Former Smoker NA - NA Social History Social History Social Info Question Answer Notes Smoking: Are you a: former smoker Additional Details Category Social Info Options Details Social History Occupation: retired Travel outside [place]: no Alcohol: smirnoff daily Recreational drug use: no Exercise: no Home smoke detector use: yes Caffeine: yes frequency: coffe e daily 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) Active confirmed Problem COPD - Chronic obstructive pulmonary disease (66570276) Chronic obstructive pulmonary disease, unspecified COPD type (J44.9) Active confirmed Problem Obese class II (213800889530089) BMI 37.0-37.9, adult (Z68.37) Active confirmed Problem Essential tremor (352046129) Benign essential tremor (G25.0) Active confirmed Problem Lower urinary tract symptoms due to benign prostatic hypertrophy (72583213054204) Benign prostatic hyperplasia with lower urinary tract symptoms, unspecified morphology (N40.1) Active confirmed Problem Contracture of palmar fascia (250864281) Dupuytren's contracture of both hands (M72.0) Active confirmed Problem Pain due to neoplastic disease (16678962884126) 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) Active confirmed Problem Myelodysplastic syndrome (044768759) 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) Active confirmed Vital Signs Heart Rate 58 /min 07/26/2025 Temperature 98 degrees Fahrenheit 07/26/2025 Blood pressure diastolic 62 mm Hg 07/26/2025 Height 5 ft 8 in in 07/26/2025 Blood pressure systolic 118 mm Hg 07/26/2025 Weight 215 lbs 07/26/2025 BMI 32.69 kg/m2 07/26/2025 Encounters Encounter Location Date Provider Diagnosis [facility] [address] [facility] [address] [place] [address] 01/15/2025 Provider Migration Essential hypertension I10 and ADELINE (generalized anxiety disorder) F41.1 [facility] [address] [address] 12/31/2024 Lisa McNees Paroxysmal atrial fibrillation I48.0 [...] E78.2 and Arthritis, multiple joint involvement M12.[address] [address] 04/12/2025 Dariangennaro Brunner Acute non-recurrent maxillary sinusitis J01.00 ; Mixed hyperlipidemia E78.2 ; Essential (primary) hypertension I10 and MDS (myelodysplastic syndrome) D46.[address] [address] 06/16/2025 Darian Brunner Mechanical low back pain M54.59 ; Cancer related pain G89.3 ; Essential hypertension I10 ; ADELINE (generalized anxiety disorder) F41.1 ; MDS (myelodysplastic syndrome) D46.9 ; Routine medical exam Z00.00 and Immunization(s) administered Z23 [facility] [address] [address] 07/26/2025 Darian Brunner MDS (myelodysplastic syndrome) D46.9 ; Cancer related pain G89.3 ; Generalized anxiety disorder F41.1 ; Hospital discharge follow-up Z09 and Rash R21 [facility] [address] [place] [address] 10/11/2024 Darian Brunner Seasonal allergies J30.2 [facility] [address] [address] 12/17/2024 Darian Brunner ADELINE (generalized anxiety disorder) F41.1 [facility] [address] [place] [address] 12/31/2024 Lisa McNees Essential hypertensi on I10 [facility] [address] [place] [address] 12/31/2024 Darian Besson [facility] [address] [address] 01/25/2025 Darian Besson Cancer related pain G89.3 [facility] [address] [place] [address] 02/25/2025 Darian Besson [facility] [address] [address] 03/02/2025 Darian Besson Cancer related pain G89.3 [facility] [address] [place] [address] 04/04/2025 Darian Besson Cancer related pain G89.3 [facility] [address] [address] 04/05/2025 Darian Besson Cancer related pain G89.3 [facility] [address] [address] 04/13/2025 Darian Besson [facility] [address] [address] 05/04/2025 Darian Besson [facility] [address] [place] [address] 05/05/2025 Darian Besson Cancer related pain G89.3 [facility] [address] [place] [address] 06/06/2025 Darian Besson Cancer related pain G89.3 [facility] [address] [place] [address] 06/23/2025 Darian Besson [facility] [address] [place] [address] 07/07/2025 Darian Besson Cancer related pain G89.3 [facility] [address] [place] [address] 07/14/2025 Darian Besson [facility] [address] [place] [address] 07/27/2025 Darian Besson Rash R21 [facility] [address] [place] [address] 08/08/2025 Darian Besson Cancer related pain G89.3 [facility] [address] [place] [address] 08/15/2025 Darian Besson [facility] [address] [place] [address] 09/06/2025 Darian Besson Cancer related pain G89.3 [facility] [address] [place] [address] 09/21/2025 Draian Besson Generalized anxiety disorder F41.1 [facility] [address] [address] 09/29/2025 Darian Besson Generalized anxiety disorder F41.1 Assessments Encounter Date Diagnosis (ICD Code) Assessment Notes Treatment Notes Treatment Clinical Notes Section Notes 10/11/2024 Seasonal allergies (ICD-10 - J30.2) 12/31/2024 Essential hypertension (ICD-10 - I10) 01/25/2025 [...] 09/29/2025 Generalized anxiety disorder (ICD-10 - F41.1) 09/21/2025 Generalized anxiety disorder (ICD-10 - F41.1) 04/05/2025 Cancer related pain (ICD-10 - G89.3) 06/16/2025 Cancer related pain (ICD-10 - G89.3) See notes above about opioid pain management. No issues with dizziness, mental status changes or constipation 12/31/2024 Paroxysmal atrial fibrillation (ICD-10 - I48.0) Regular and rate controlled. Keep FU with cardiology 12/31/2024 MDS (myelodysplastic syndrome) (ICD-10 - D46.9) Stable at this time. Keep FU with oncology. Dr. Whitt note reviewed 12/17/2024 ADELINE (generalized anxiety disorder) (ICD-10 - F41.1) 01/15/2025 Essential hypertension (ICD-10 - I10) 12/31/2024 Tremor (ICD-10 - R25.1) At baseline 07/26/2025 Generalized anxiety disorder (ICD-10 - F41.1) [...] meloxicam 06/16/2025 Immunization(s) administered (ICD-10 - Z23) 12/31/2024 ADELINE (generalized anxiety disorder) (ICD-10 - [...] Panel 10/21/19 23 M-Comprehensive Metabolic Panel 10/18/19 M-Hemoglobin A1C 05/31/2022 M-Hemoglobin A1C 10/18/2021 M-Lipid Panel 10/21/2022 M-Lipid Panel 12/31/2024 M-Lipid Panel 02/21/2023 M-Lipid Panel 05/31/2022 M-Lipid Panel 10/18/2021 M-PSA Total+% Free 05/31/2022 Insurance Providers Payer Name Payer Address Payer Phone Subscriber Number Group Number Insured Name Patient Relationship to Insured Coverage Start Date Coverage End Date [place] [place] [address] [phone] [id number] Glenn Marti Self - patient is the insured MEDICAID EDS [address] [place] [address] [phone] [id number] Glenn Marti Self - patient is the insured [employer] [address] [place] [address] ACL Glenn Marti Self - patient is [...]
--- OUTSIDE RECORDS SUMMARY | 2025-10-11 08:44 | XMS_ITS | Referral Summary ---
Author Organization [employer] ([place], [place], [place], [place], [place]) Address [address] [place] [address] Care Team Providers Care Electric System Operator Name Role Phone Darian Brunner MD Primary Care Provider + [phone] Allergies No known active allergies Medications acyclovir [...] Date Celestino rded Speak language other than Greenlandic at home Not on file 12/25/2023 Want [...] on file Medical Devices Implanted Type Area Sales Expert Home Theater Device Identifier Shelf Expiration Date Model / Serial / Lot Iol Uv Jared +21.0 [id number] - [id number] Implanted:Qty: 1 on 11/18/2024 by Julianna Mendez MD at [facility] IMPLANTS Right: Eye ANDRÉS 08/12/2027 [id number] / [id number] / Iol Uv Clareon +20.5 [id number] - [id number] Implanted:Qty: 1 on 12/16/2024 by Julianna Mendez MD at [facility] IMPLANTS Left: Eye ANDRÉS 09/01/2027 [id number] / [id number] / Insurance MEDICARE PART A B MEDICAID [id number] Care Teams Electric System Operator Relationship Specialty Start Date End Date Darian Brunner MD [address] [place] [address] PCP - General Adolescent Medicine 01/01/24
--- OUTSIDE RECORDS SUMMARY | 2025-10-11 08:44 | XMS_ITS | Clinical Summary ---
Author Organization [employer] ([place], [place], [place], [place], [place]) Address [address] [place] [address] Care Team Providers Care Solution Strategist Name Role Phone Darian Brunner MD Primary Care Provider + [phone] Allergies No known active allergies Medications acyclovir [...] Date Celestino rded Speak language other than Albanian at home Not on file 12/25/2023 Want [...] Completed 10/24/2023, Medical Devices Implanted Type Area [employer] Officer Device Identifier Shelf Expiration Date Model / Serial / Lot Iol Uv Clareon +21.0 [id number] - [id number] Implanted:Qty: 1 on 11/18/2024 by Julianna Mendez MD at [facility] IMPLANTS Right: Eye ANDRÉS 08/12/2027 [id number] / [id number] / Iol Uv Clareon +20.5 [id number] - [id number] Implanted:Qty: 1 on 12/16/2024 by Julianna Mendez MD at [facility] IMPLANTS Left: Eye ANDRÉS 09/01/2027 [id number] / [id number] / Insurance MEDICARE PART A B MEDICAID B Care Teams Solution Strategist Relationship Specialty Start Date End Date Darian Brunner MD [address] [place] [address] PCP - General Adolescent Medicine 01/01/24
[2025-10-11 08:54] LABS: Hematocrit 22.9 % (42.0-52.0); Hemoglobin 7.4 g/dL (14.1-18.0); Immature Granulocytes % 3.1 %; Mean Corpuscular HGB Conc 32.3 g/dL (31.8-35.4); Mean Corpuscular Hemoglobin 32.0 pg (27.0-31.2); Mean Corpuscular Volume 99.1 fl (80-94); Nucleated Red Blood Cells % 0 %; Red Blood Count 2.31 M/mm3 (4.60-6.20); Red Cell Distribution Width-SD 81.9 fL
[2025-10-11 09:05] LABS: Albumin Level 3.5 g/dl (3.5-5.0); Chloride 110 mmol/L (98-107); Potassium 3.5 mmoL/L (3.5-5.1); Sodium 140 mmol/L (136-145)
[2025-10-11 09:07] LABS: Blood Urea Nitrogen 26 mg/dl (9-20); Creatinine Clearance Estimated 77 mL/min (50-200); Creatinine,Serum 1.10 mg/dl (0.66-1.25); Estimated Glomerular Filt Rate 64 ml/min (>60); GFR (African American) 78 ML/MIN (>60)
[2025-10-11 09:08] LABS: Alanine Aminotransferase 50 U/L (12-78); Albumin/Globulin Ratio 1.0 (1.1-1.8); Alkaline Phosphatase 434 U/L (38-126); Anion Gap 9.5 mEq/L (5-15); Aspartate Amino Transferase 51 U/L (17-59); Bilirubin,Total 1.8 mg/dl (0.2-1.3); Calcium 9.3 mg/dl (8.4-10.2); Carbon Dioxide 24 mmol/L (22.0-30.0); Globulin 3.6 g/dL (1.3-3.2); Glucose 124 mg/dl (74-100); Total Protein,Serum 7.1 g/dl (6.3-8.2)
[2025-10-11 09:29] LABS: Platelet Count 18 K/mm3 (142-424); White Blood Count 1.3 K/mm3 (4.8-10.8)
[2025-10-11 10:18] LABS: Macrocytosis 1+; Total Cells Counted 25
[2025-10-11] MEDS: 0.9 % SODIUM CHLORIDE 250 ML 25 ML IV (11:07)
== END 2025-10-11 23:59 | disposition home or self-care (01) ==
LOC: INF 08:40
PROVIDERS: PCP Internal Medicine Adolescent Medicine; Visit Provider Internal Medicine Medical Oncology
DX: D46.9 Myelodysplastic syndrome, unspecified (principal)
CPT/HCPCS: 36430; 80053; 85007; 85025; 85027; 86850; J7050; P9016